=== PATIENT | male | born 1960 | race Caucasian/White ===

== ENCOUNTER 2017-06-24 16:01 | Inpatient (IN) | payer MEDICAID ==
[~2017-06-24] VITALS: Ht 167.6 cm; Wt 62.6 kg
[~2017-06-24 16:01] MED LIST: ASPIR 8181 MG ORAL; COLACE100 MG ORAL; DEPAKOTE ER500 MG ORAL; FLUPHENAZI25 MG/1 ML IM; KLONOPIN1 MG ORAL; LORAZEPAM1 MG ORAL; MOM30 ML ORAL; NEXIUM20 M1 ORAL; NEXIUM20 MG ORAL; NORVASC5 MG ORAL; OMEPRAZOLE20 M2 ORAL; THERAPEUTIC M1 EAC2 PO; THORAZINE25 MG PO
[2017-06-24] MEDS ORDERED: LEVAQUIN750 MG ORAL (16:59)
[2017-06-24] MEDS ORDERED: ACETAMINOPHEN325 M1 ORAL (16:59)
[2017-06-24] MEDS ORDERED: BACTRIM DS TAB1 EAC1 ORAL (16:59)
[2017-06-24] MEDS ORDERED: SEROQUEL200 MG ORAL (16:59)
[2017-06-24] MEDS ORDERED: NORCO 5-325 TA1 EAC1 ORAL (16:59)
[2017-06-24] MEDS ORDERED: PANTOPRAZOLE SO40 MG ORAL (16:59)
[2017-06-24] MEDS ORDERED: TEMAZEPAM15 MG ORAL (16:59)
[2017-06-24 17:54] LABS: BASOPHILS % (AUTO) 0.8 % (0.0-2.0); HEMATOCRIT 37.3 % (42.0-52.0); HEMOGLOBIN 12.5 G/DL (14.2-18.0); LYMPHOCYTES % (AUTO) 29.6 % (20.0-45.0); MEAN CORPUSCULAR VOLUME 89 FL (80-99); MONOCYTES % (AUTO) 8.6 % (1.0-10.0); NEUTROPHILS % (AUTO) 60.9 % (45.0-75.0); PLATELET COUNT 360 K/UL (150-450); RED BLOOD COUNT 4.19 M/UL (4.70-6.10); RED CELL DISTRIBUTION WIDTH 13.3 % (11.6-14.8); WHITE BLOOD COUNT 14.8 K/UL (4.8-10.8)
[2017-06-24 17:57] LABS: APPEARANCE,URINE CLEAR; BILIRUBIN, URINE NEGATIVE (NEGATIVE); GLUCOSE, URINE (UA) NEGATIVE (NEGATIVE); KETONES,URINE 1+ (NEGATIVE); LEUKOCYTE ESTERASE ,URINE 1+ (NEGATIVE); NITRITE,URINE NEGATIVE (NEGATIVE); PH,URINE 5 (4.5-8.0); PROTEIN,URINE NEGATIVE (NEGATIVE); UROBILINOGEN,URINE NORMAL MG/DL (0.0-1.0)
[2017-06-24 18:04] LABS: COLOR,URINE YELLOW; INR 1.2 (0.9-1.1)
[2017-06-24 18:08] LABS: ANION GAP 12 mmol/L (5-15); BLOOD UREA NITROGEN 53 mg/dL (7-18); CALCIUM 9.4 MG/DL (8.5-10.1); CARBON DIOXIDE 23 MMOL/L (21-32); CHLORIDE 109 MMOL/L (98-107); CREATININE 1.7 MG/DL (0.55-1.30); POTASSIUM 3.8 MMOL/L (3.5-5.1); SODIUM 144 MMOL/L (136-145)
[2017-06-24 18:21] LABS: ALANINE AMINOTRANSFERASE 20 U/L (12-78); ALBUMIN/GLOBULIN RATIO 1.1 (1.0-2.7); ALKALINE PHOSPHATASE 82 U/L (46-116); ASPARTATE AMINO TRANSFERASE 34 U/L (15-37); BILIRUBIN,TOTAL 0.5 MG/DL (0.2-1.0); CKMB 3.3 NG/ML (0.0-3.6); CREATINE KINASE 681 U/L (26-308)
[2017-06-24] MEDS ORDERED: LORazepam Inj 2mg/ml 1ml IV ONE (18:30)
[2017-06-24] MEDS ORDERED: ASPIRIN81 MG ORAL (18:52)
[2017-06-24] MEDS ORDERED: PROBIOTIC1 EAC5 PO (18:52)
[2017-06-24] MEDS ORDERED: LEXAPRO10 MG ORAL (18:58)
[2017-06-24] MEDS ORDERED: VITAMIN C500 M1 ORAL (18:58)
[2017-06-24 19:12] VITALS: BP 106/56
--- NOTE | 2017-06-24 19:14 | Emergency Room Report ---
History of Present Illness General Chief Complaint: General Complaint Source: Patient, Medical Record Present Illness HPI The patient is a 56-year-old male brought in by EMS after increased generalized weakness and decreased oral intake. Patient was noted to be nonverbal. He is brought in by EMS. . Report per history of facial cancer. Patient had decreased oral intake. He had not been vomiting. Allergies: Coded Allergies: BENZTROPINE (Unverified Allergy, Unknown, 02/22/14) HALOPERIDOL (Unverified Allergy, Unknown, 02/22/14) PENICILLINS (Unverified Allergy, Unknown, 02/22/14) Patient History Past Medical History: see triage record Reviewed Nursing Documentation: PMH: Agreed, PSxH: Agreed Nursing Documentation-PMH Hx Cardiac Problems: Yes Hx Hypertension: Yes Hx Pacemaker: No Hx Asthma: No Hx COPD: Yes Hx Diabetes: No Hx Gastrointestinal Problems: Yes Hx Dialysis: No Hx Neurological Problems: No Hx Cerebrovascular Accident: No Hx Seizures: No Hx Memory Loss: Yes - confusion Review of Systems All Other Systems: limited - by mental status Physical Exam Vital Signs Date Time Temp Pulse Resp B/P (MAP) Pulse Ox O2 Delivery O2 Flow Rate FiO2 06/24/17 15:58 97.5 102 22 138/79 98 Room Air 97.5 Sp02 EP Interpretation: reviewed, normal General Appearance: normal inspection, well appearing, no apparent distress, alert, Chronically Ill Head: atraumatic ENT: normal ENT inspection, hearing grossly normal, normal voice Neck: normal inspection, full range of motion, supple, no bony tend Respiratory: normal inspection, lungs clear, normal breath sounds, no respiratory distress, no retraction, no wheezing Cardiovascular #1: regular rate, rhythm, no edema Gastrointestinal: normal inspection, normal bowel sounds, non tender, soft, no guarding, no hernia Genitourinary: no CVA tenderness Musculoskeletal: normal inspection, back normal, normal range of motion Neurologic: alert, responsive, speech normal Psychiatric: other - agitated non verbal Skin: normal color, no rash, other - right eye lesion ill defined Medical Decision Making Diagnostic Impression: Primary Impression: Failure to thrive in adult Additional Impression: Urinary tract infection ER Course Patient presented for generalized weakness. Differential diagnosis included was not limited to anemia, urinary tract infection, electrolyte abnormality, hypothyroidism, myocardial infarction, myasthenia gravis, dehydration, among others. Because of complexity of patient's case laboratory testing and imaging studies were ordered.Laboratory studies are notable for elevated BUN/creatinine consistent with dehydration. Patient started on IV fluids. He was given IV antibiotics. Dr. Stef Gill was contacted for inpatient management. Labs Test 06/24/17 17:37 White Blood Count 14.8 K/UL (4.8-10.8) Red Blood Count 4.19 M/UL (4.70-6.10) Hemoglobin 12.5 G/DL (14.2-18.0) Hematocrit 37.3 % (42.0-52.0) Mean Corpuscular Volume 89 FL (80-99) Mean Corpuscular Hemoglobin 29.8 PG (27.0-31.0) Mean Corpuscular Hemoglobin Concent 33.6 G/DL (32.0-36.0) Red Cell Distribution Width 13.3 % (11.6-14.8) Platelet Count 360 K/UL (150-450) Mean Platelet Volume 6.3 FL (6.5-10.1) Neutrophils (%) (Auto) 60.9 % (45.0-75.0) Lymphocytes (%) (Auto) 29.6 % (20.0-45.0) Monocytes (%) (Auto) 8.6 % (1.0-10.0) Eosinophils (%) (Auto) 0.0 % (0.0-3.0) Basophils (%) (Auto) 0.8 % (0.0-2.0) Prothrombin Time 12.2 SEC (9.30-11.50) Prothromb Time International Ratio 1.2 (0.9-1.1) Activated Partial Thromboplast Time 40 SEC (23-33) Urine Color Yellow Urine Appearance Clear Urine pH 5 (4.5-8.0) Urine Specific [place] 1.025 (1.005-1.035) Urine Protein Negative (NEGATIVE) Urine Glucose (UA) Negative (NEGATIVE) Urine Ketones 1+ (NEGATIVE) Urine Occult Blood 1+ (NEGATIVE) Urine Nitrite Negative (NEGATIVE) Urine Bilirubin Negative (NEGATIVE) Urine Urobilinogen Normal MG/DL (0.0-1.0) Urine Leukocyte Esterase 1+ (NEGATIVE) Urine RBC 5-10 /HPF (0 - 0) Urine WBC 2-4 /HPF (0 - 0) Urine Squamous Epithelial Cells None /LPF (NONE/OCC) Urine Amorphous Sediment Few /LPF (NONE) Urine Bacteria Moderate /HPF (NONE) Urine Fine Granular Casts 2-4 /LPF (NONE) Sodium Level 144 MMOL/L (136-145) Potassium Level 3.8 MMOL/L (3.5-5.1) Chloride Level 109 MMOL/L (98-107) Carbon Dioxide Level 23 MMOL/L (21-32) Anion Gap 12 mmol/L (5-15) Blood Urea Nitrogen 53 mg/dL (7-18) Creatinine 1.7 MG/DL (0.55-1.30) Estimat Glomerular Filtration Rate 41.9 mL/min (>60) Glucose Level 117 MG/DL (74-106) Lactic Acid Level 1.80 mmol/L (0.66-2.22) Calcium Level 9.4 MG/DL (8.5-10.1) Total Bilirubin 0.5 MG/DL (0.2-1.0) Aspartate Amino Transf (AST/SGOT) 34 U/L (15-37) Alanine Aminotransferase (ALT/SGPT) 20 U/L (12-78) Alkaline Phosphatase 82 U/L (46-116) Total Creatine Kinase 681 U/L (26-308) Creatine Kinase MB 3.3 NG/ML (0.0-3.6) Creatine Kinase MB Relative Index 0.4 Troponin I 0.008 ng/mL (0.000-0.056) Total Protein 7.6 G/DL (6.4-8.2) Albumin 4.0 G/DL (3.4-5.0) Globulin 3.6 g/dL Albumin/Globulin Ratio 1.1 (1.0-2.7) Last Vital Signs Date Time Temp Pulse Resp B/P (MAP) Pulse Ox O2 Delivery O2 Flow Rate FiO2 06/24/17 15:58 97.5 102 22 138/79 98 Room Air 97.5 Status: unchanged Disposition: ADMITTED INPATIENT Condition: Serious Referrals: STEF GILL (PCP) Keith Greene Jun 24, 2017 19:14
[2017-06-24 20:15] VITALS: BP 108/62
[2017-06-24 21:15] VITALS: BP 97/62
[2017-06-25 08:00] VITALS: BP 168/96
[2017-06-25] MEDS: Enoxaparin 40mg Inj SUBQ SCH (09:00)
[2017-06-25] MEDS ORDERED: DiphenhydrAMINE 50mg/ml Inj IM ONE (09:45)
[2017-06-25] MEDS ORDERED: LORazepam Inj 2mg/ml 1ml IM ONE (09:45)
--- NOTE | 2017-06-25 10:07 | Diagnostic Imaging Report ---
Indication: Shortness of breath Technique: XRAY Chest 1v Comparison: 02/22/2014 Findings: Cardiomediastinal silhouette is within normal limits. There is no consolidation or pleural effusion. Osseous structures are grossly stable. Impression: No acute cardiopulmonary disease.
[2017-06-25 12:00] VITALS: BP 138/81
[2017-06-25 13:37] LABS: BASOPHILS % (AUTO) 0.8 % (0.0-2.0); HEMATOCRIT 34.6 % (42.0-52.0); HEMOGLOBIN 11.6 G/DL (14.2-18.0); LYMPHOCYTES % (AUTO) 36.3 % (20.0-45.0); MEAN CORPUSCULAR VOLUME 89 FL (80-99); NEUTROPHILS % (AUTO) 57.9 % (45.0-75.0); PLATELET COUNT 318 K/UL (150-450); RED BLOOD COUNT 3.88 M/UL (4.70-6.10); RED CELL DISTRIBUTION WIDTH 13.3 % (11.6-14.8)
[2017-06-25 13:57] LABS: ANION GAP 10 mmol/L (5-15); BLOOD UREA NITROGEN 40 mg/dL (7-18); CARBON DIOXIDE 24 MMOL/L (21-32); CHLORIDE 113 MMOL/L (98-107); CREATININE 1.2 MG/DL (0.55-1.30); POTASSIUM 3.7 MMOL/L (3.5-5.1); SODIUM 147 MMOL/L (136-145)
[2017-06-25 16:00] VITALS: BP 123/59
[2017-06-25 20:00] VITALS: BP 93/60
--- NOTE | 2017-06-25 20:49 | History & Physical ---
History and Physical History & Physicial [id number] Job ID Jr Daly Javi Jun 25, 2017 20:49
[2017-06-25] MEDS ORDERED: Bactrim-DS 1 tab ORAL SCH (21:00)
--- NOTE | 2017-06-25 21:49 | Consultation ---
Consult Note Consult Note [id number] TONIA SHAW M.D. Jun 25, 2017 21:49
[2017-06-25] MEDS: Ascorbic Acid 500mg tab ORAL SCH (23:09)
[2017-06-25] MEDS: QUEtiapine 200mg tab ORAL SCH (23:09)
[2017-06-25] MEDS: Aspirin EC 81mg tab ORAL SCH (23:09)
[2017-06-25] MEDS: Lactobacillus-GG tablet ORAL SCH (23:10)
[2017-06-26] VITALS: BP 116/71
[2017-06-26] MEDS ORDERED: Vancomycin 1250mg/D5W 250ml IVPB ONE (00:30)
--- NOTE | 2017-06-26 01:15 | Consultation ---
DATE OF CONSULTATION: 06/25/2017 INFECTIOUS DISEASE CONSULTATION CONSULTING PHYSICIAN: Juan Manuel Gallardo M.D. REFERRING PHYSICIAN: Julio Higgins D.O. REASON FOR CONSULTATION: Evaluation of the patient for sepsis, worsening mental status, antibiotic management. HISTORY OF PRESENT ILLNESS: The patient is a 56-year-old male with multiple medical problems, who was admitted to this medical center due to worsening of mental status. The patient has purulent discharge from the wound over the right side of the face and from the right eye. The patient was found to have leukocytosis and Infectious Disease consultation was requested for further evaluation of the patient's antibiotic management. PAST MEDICAL HISTORY: 1. History of basal cell carcinoma, status post resection. 2. Status post resection of right eye (enucleation). 3. History of hypertension. 4. COPD. 5. Schizophrenia. ALLERGIES: Penicillin. MEDICATIONS: Bactrim and Levaquin. FAMILY HISTORY: Unavailable. REVIEW OF SYSTEMS: Unobtainable. PHYSICAL EXAMINATION: VITAL SIGNS: Temperature 97, blood pressure 92/60, pulse 86, respiratory rate 18. HEENT: The patient has purulent discharge from the extensive right facial wound and right eye. NECK: No lymphadenopathy. CHEST: Clear. HEART: S1, S2. ABDOMEN: Soft. EXTREMITIES: No cyanosis at this time. NEUROLOGIC: Confused. LABORATORY DATA: White blood cells at the time of admission 14.8 and today 14, hemoglobin 11, platelets 318,000. UA unremarkable. BUN 40, creatinine 1.2. ALT, AST, alkaline phosphatase unremarkable. Chest x-ray, N[facility]. ASSESSMENT: 1. The patient is a 56-year-old male with right facial wound infection concerning for possible deep-seated infection including FAMILY LIFE COUNSELOR or other deeper facial structures. 2. Leukocytosis. 3. Afebrile. PLAN: 1. We will start the patient on IV vancomycin, Rocephin, and Flagyl. Hold Levaquin and Bactrim at this time. 2. Monitor CBC. 3. Monitor BMP. 4. Wound culture. 5. Blood culture. 6. CT of head/orbits with IV contrast to rule out abscess. 7. Monitor the patient's glucose, labs, and cultures and based on those, we will do further recommendation. Thank you, Dr. Julio Higgins, for allowing me to participate in the care of this patient. I will follow the patient with you during this hospitalization. Juan Manuel Gallardo M.D. DR: Carlyn JOB#: [id number] CC:
[2017-06-26 09:00] VITALS: BP 133/53
[2017-06-26] MEDS: Enoxaparin 40mg Inj SUBQ SCH (09:00)
[2017-06-26] MEDS: Lactobacillus-GG tablet ORAL SCH (10:46)
[2017-06-26] MEDS: Ascorbic Acid 500mg tab ORAL SCH (10:46)
[2017-06-26] MEDS: Aspirin EC 81mg tab ORAL SCH (10:46)
[2017-06-26] MEDS: QUEtiapine 200mg tab ORAL SCH ×2 (10:46→21:09)
[2017-06-26] MEDS: cefTRIAXone 2 GM in NS 55 ML IVPB SCH ×2 (10:49→21:09)
[2017-06-26 12:00] VITALS: BP 137/60
[2017-06-26] MEDS: Vancomycin 1gm in D5W 275ml IVPB SCH (12:32)
[2017-06-26 16:00] VITALS: BP 146/66
--- NOTE | 2017-06-26 16:30 | Cardiology Report ---
APPROVED REPORT EKG Measurement Heart [id number] Sin[address] ST abnormality, possible anterior subendocardial injury Abnormal ECG
[2017-06-26 20:00] VITALS: BP 112/56
--- NOTE | 2017-06-26 23:16 | Wound Nurse Progress Note ---
Wound RN Progress Note Wound Consult Pt with a diagnosis of Basal cell carcinoma on left face and eye area. Please follow MD's order. No recommendation at this time. CHRISTIE HERNANDEZ RN Jun 26, 2017 23:15
[2017-06-27] VITALS: BP 124/67
[2017-06-27] MEDS: Vancomycin 1gm in D5W 275ml IVPB SCH (00:45)
[2017-06-27 04:00] VITALS: BP 121/68
[2017-06-27 08:00] VITALS: BP 126/71
[2017-06-27] MEDS: Enoxaparin 40mg Inj SUBQ SCH (09:00)
[2017-06-27] MEDS: Aspirin EC 81mg tab ORAL SCH (10:12)
[2017-06-27] MEDS: QUEtiapine 200mg tab ORAL SCH ×2 (10:12→20:44)
[2017-06-27] MEDS: Ascorbic Acid 500mg tab ORAL SCH (10:12)
[2017-06-27] MEDS: Lactobacillus-GG tablet ORAL SCH (10:13)
[2017-06-27] MEDS: cefTRIAXone 2 GM in NS 55 ML IVPB SCH ×2 (10:48→20:43)
[2017-06-27 12:00] VITALS: BP 157/85
[2017-06-27] MEDS ORDERED: LORazepam Inj 2mg/ml 1ml IM ONE (12:45)
[2017-06-27] MEDS ORDERED: DiphenhydrAMINE 50mg/ml Inj IM ONE (12:45)
--- NOTE | 2017-06-27 13:36 | General Progress Note ---
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 SNOMED: 56940267 (5) Failure to thrive in adult ICD Codes: R62.7 - Adult failure to thrive SNOMED: 900307082 (6) Cancer ICD Codes: C80.1 - Malignant (primary) neoplasm, unspecified SNOMED: 977617351 Status: unchanged Assessment/Plan ot pt diet abx cbc bmp am gi psyc possible hospice eval Subjective Constitutional: Reports: weakness Allergies: Coded Allergies: BENZTROPINE (Unverified Allergy, Unknown, 02/22/14) HALOPERIDOL (Unverified Allergy, Unknown, 02/22/14) PENICILLINS (Unverified Allergy, Unknown, 02/22/14) All Systems: reviewed and negative except above Subjective lethargic in bed Objective Last 24 Hour Vital Signs Date Time Temp Pulse Resp B/P (MAP) Pulse Ox O2 Delivery O2 Flow Rate FiO2 06/27/17 08:00 97.2 89 20 126/71 98 97.2 06/27/17 04:00 97.2 82 20 121/68 99 97.2 06/27/17 00:00 98.1 59 21 124/67 100 98.1 06/26/17 21:09 60 112/56 06/26/17 20:00 97.3 60 21 112/56 100 97.3 06/26/17 16:00 97.3 63 20 146/66 100 97.3 Intake and Output 06/26/17 06/27/17 19:00 07:00 Intake Total 1430.000 ml 530.000 ml Balance 1430.000 ml 530.000 ml Intake Oral 1000 ml IV Total 430.000 ml 530.000 ml # Bowel Movements 1 Laboratory Tests 06/27/17 13:10: Vancomycin Level Trough [Pending] Height (Feet): 5 Height (Inches): 6.00 Weight (Pounds): 138 General Appearance: lethargic EENT: normal ENT inspection Neck: normal alignment Cardiovascular: normal peripheral pulses, normal rate, regular rhythm Respiratory/Chest: chest wall non-tender, lungs clear, normal breath sounds Abdomen: normal bowel sounds, non tender, soft Extremities: normal inspection Edema: no edema noted Arm (L), no edema noted Arm (R), no edema noted Leg (L), no edema noted Leg (R), no edema noted Pedal (L), no edema noted Pedal (R), no edema noted Generalized Neurologic: responsive, motor weakness Skin: normal pigmentation, warm/dry STEF GILL Jun 27, 2017 13:36
--- NOTE | 2017-06-27 14:59 | Consultation ---
History of Present Illness General Date patient seen: Jun 27, 2017 Chief Complaint: General Complaint Reason for Consultation: palliative and hospice appropiateness Present Illness HPI 56-year-old male with hx of inoperable facial cancer, brought in by EMS after increased generalized weakness and decreased oral intake. Patient had decreased oral intake. Pt was agitated earlier today and received a cocktail for agitation. He is comfortable and sleeping now Allergies: Coded Allergies: BENZTROPINE (Unverified Allergy, Unknown, 02/22/14) HALOPERIDOL (Unverified Allergy, Unknown, 02/22/14) PENICILLINS (Unverified Allergy, Unknown, 02/22/14) Medication History Scheduled Amlodipine Besylate (Norvasc), 5 MG ORAL DAILY, (Reported) Ascorbic Acid* (Vitamin C*), 500 MG ORAL DAILY, (Reported) Aspirin* (Aspirin*), 81 MG ORAL DAILY, (Reported) Clonazepam* (Klonopin*), 1 MG ORAL BID, (Reported) Escitalopram Oxalate* (Lexapro*), 10 MG ORAL DAILY, (Reported) Levofloxacin* (Levaquin*), 750 MG ORAL DAILY, (Reported) Multivit With Calcium,Iron,Min (Therapeutic M), 1 EACH PO DAILY, (Reported) Pantoprazole* (Pantoprazole*), 40 MG ORAL DAILY, (Reported) Quetiapine Fumarate* (Seroquel*), 200 MG ORAL TWICE A DAY, (Reported) Temazepam (Temazepam*), 15 MG ORAL BEDTIME, (Reported) Trimethoprim/Sulfamethoxazole 160/800* (Bactrim Ds Tablet*), 1 TAB ORAL TWICE A DAY, (Reported) Scheduled PRN Acetaminophen* (Acetaminophen 325MG Tablet*), 650 MG ORAL Q4H PRN for Pain Scale (3-5), (Reported) Miscellaneous Medications Lactobacillus Combo No.11 (Probiotic), 1 EACH PO, (Reported) Discontinued Medications Chlorpromazine (Chlorpromazine HCl), 200 MG PO TID, (Reported) Discontinued Reason: Pt stopped taking med Divalproex Sodium* (Depakote Er*), 1,000 MG ORAL QHS, (Reported) Discontinued Reason: Pt stopped taking med Docusate Sodium* (Colace*), 100 MG ORAL TWICE A DAY, (Reported) Discontinued Reason: Pt stopped taking med Esomeprazole Magnesium (Nexium), 20 MG ORAL DAILY, (Reported) Discontinued Reason: Pt stopped taking med Fluphenazine Decanoate (Fluphenazine Decanoate), 25 MG IM Q3pfqlv, (Reported) Discontinued Reason: Pt stopped taking med Hydrocodone Bit/Acetaminophen 5-325* ([place] 5-325 Tablet*), 1 TAB ORAL Q6HR PRN for Severe Pain (Pain Scale 7-10), (Reported) Discontinued Reason: Pt stopped taking med Lorazepam* (Lorazepam*), 1 MG ORAL Q6HR PRN for For Anxiety, (Reported) Discontinued Reason: Pt stopped taking med Magnesium Hydroxide (Milk of Magnesia), 30 ML ORAL DAILY, (Reported) Discontinued Reason: Pt stopped taking med Omeprazole (Omeprazole), 20 MG ORAL DAILY, (Reported) Discontinued Reason: Pt stopped taking med Patient History Healthcare decision maker Che Lemons, Resuscitation status Full Code Advanced Directive on File Past Medical/Surgical History Past Medical/Surgical History: (1) Basal cell carcinoma Review of Systems Constitutional: Reports: weakness Physical Exam General Appearance: combative, cachetic Lines, tubes and drains: peripheral HEENT: normocephalic, atraumatic Neck: non-tender, normal alignment Respiratory/Chest: chest wall non-tender, normal breath sounds Breasts: no masses Cardiovascular/Chest: normal peripheral pulses Abdomen: normal bowel sounds, non tender Genitourinary/Rectal: normal genital exam Last 24 Hour Vital Signs Date Time Temp Pulse Resp B/P (MAP) Pulse Ox O2 Delivery O2 Flow Rate FiO2 06/27/17 12:00 97.9 68 22 157/85 99 Room Air 97.9 06/27/17 08:00 97.2 89 20 126/71 98 97.2 06/27/17 04:00 97.2 82 20 121/68 99 97.2 06/27/17 00:00 98.1 59 21 124/67 100 98.1 06/26/17 21:09 60 112/56 06/26/17 20:00 97.3 60 21 112/56 100 97.3 06/26/17 16:00 97.3 63 20 146/66 100 97.3 Intake and Output 06/26/17 06/27/17 19:00 07:00 Intake Total 1430.000 ml 530.000 ml Balance 1430.000 ml 530.000 ml Intake Oral 1000 ml IV Total 430.000 ml 530.000 ml # Bowel Movements 1 Laboratory Tests Test 06/27/17 13:10 Vancomycin Level Trough 13.0 ug/mL (5.0-12.0) H Height (Feet): 5 Height (Inches): 6.00 Weight (Pounds): 138 Medications Current Medications Medications (Trade) Dose Ordered Sig/Jordi Route PRN Reason Start Time Stop Time Status Last Admin Dose Admin Acetaminophen (Tylenol) 325 mg Q4H PRN ORAL Mild Pain/Temp > 100.5 06/25/17 04:30 07/25/17 04:29 Amlodipine Besylate (Norvasc) 5 mg QHS ORAL 06/25/17 21:00 07/25/17 20:59 06/26/17 21:09 Ascorbic Acid (Vitamin C) 500 mg DAILY ORAL 06/25/17 21:00 07/25/17 20:59 06/27/17 10:12 Aspirin (Ecotrin) 81 mg DAILY ORAL 06/25/17 21:00 07/25/17 20:59 06/27/17 10:12 Ceftriaxone Sodium 2 gm/ Sodium Chloride 55 ml @ 110 mls/hr EVERY 12 HOURS IVPB 06/26/17 11:00 07/03/17 10:59 06/27/17 10:48 Clonazepam (KlonoPIN) 1 mg BID ORAL 06/25/17 21:00 07/02/17 20:59 06/27/17 10:13 Enoxaparin Sodium (Lovenox) 40 mg DAILY SUBQ 06/25/17 09:00 07/25/17 08:59 Escitalopram Oxalate (Lexapro) 10 mg DAILY ORAL 06/25/17 21:00 07/25/17 20:59 06/27/17 10:13 Lactobacillus Acidophilus (Culturelle) 1 tab DAILY ORAL 06/25/17 21:00 07/25/17 20:59 06/27/17 10:13 Metronidazole 100 ml @ 100 mls/hr Q6HR IVPB 06/26/17 00:00 07/03/17 00:00 06/27/17 13:27 Multivitamins (Multivitamins) 1 tab DAILY ORAL 06/25/17 21:00 07/25/17 20:59 06/27/17 10:12 Pantoprazole (Protonix) 40 mg DAILY ORAL 06/25/17 21:00 07/25/17 20:59 06/27/17 10:12 Quetiapine Fumarate (SEROquel) 200 mg Q12HR ORAL 06/25/17 21:00 07/25/17 20:59 06/27/17 10:12 Temazepam (Restoril) 15 mg QHS ORAL 06/25/17 21:00 07/02/17 20:59 06/26/17 21:09 Vancomycin HCl (Vanco rx to dose) 1 ea DAILY PRN MISC Per rx protocol 06/25/17 22:00 07/25/17 21:59 Vancomycin HCl/ Dextrose 250 ml @ 166.667 mls/hr Q12HR@0300,1500 IVPB 06/27/17 15:30 07/02/17 15:29 Assessment/Plan Problem List: (1) Cellulitis and abscess of face ICD Codes: L03.211 - Cellulitis of face; L02.01 - Cutaneous abscess of face SNOMED: 147222406 (2) Failure to thrive in adult ICD Codes: R62.7 - Adult failure to thrive SNOMED: 684913962 (3) Basal cell carcinoma ICD Codes: C44.91 - Basal cell carcinoma of skin, unspecified SNOMED: 708953666 Assessment/Plan pt with facial cancer and inability to eat and recent weight loss, will qualify for end of life care and hospice if pts medical device sales representative sign the consent forms. If there are no family members or next of kin, ethics recommendations and two physician signature will suffice. CLIVE SUAREZ Jun 27, 2017 14:59
--- NOTE | 2017-06-27 15:06 | Infectious Diseases Prog Note ---
Assessment/Plan Assessment/Plan ASSESSMENT: 1. The patient is a 56-year-old male with right facial wound infection concerning for possible deep-seated infection including DATA BASE ADMINISTRATOR or other deeper facial structures. -wound cx Staph sp, diphteroids, GNRs -Bcx NTD 2. Leukocytosis. -CXR no acute disease -u/a neg 3. Afebrile. - History of basal cell carcinoma, status post resection. -Status post resection of right eye (enucleation). -History of hypertension. -COPD. -Schizophrenia. PLAN: 1. We will start the patient on IV vancomycin, Rocephin, and Flagyl abx d#3 -06/25 SP Levaquin, bactrim 2. Monitor CBC. 3. Monitor BMP. 4. Wound culture. 5. Blood culture. 6. f/u CT of head/orbits with IV contrast to rule out abscess. 7. Monitor the patient's glucose, labs, and cultures and based on those, we will do further recommendation. Thank you, Dr. Julio Higgins, for allowing me to participate in the care of this patient. I will follow the patient with you during this hospitalization. Subjective Allergies: Coded Allergies: BENZTROPINE (Unverified Allergy, Unknown, 02/22/14) HALOPERIDOL (Unverified Allergy, Unknown, 02/22/14) PENICILLINS (Unverified Allergy, Unknown, 02/22/14) Subjective afebrile no CBC today pending CT Objective Vital Signs Last 24 Hour Vital Signs Date Time Temp Pulse Resp B/P (MAP) Pulse Ox O2 Delivery O2 Flow Rate FiO2 06/27/17 12:00 97.9 68 22 157/85 99 Room Air 97.9 06/27/17 08:00 97.2 89 20 126/71 98 97.2 06/27/17 04:00 97.2 82 20 121/68 99 97.2 06/27/17 00:00 98.1 59 21 124/67 100 98.1 06/26/17 21:09 60 112/56 06/26/17 20:00 97.3 60 21 112/56 100 97.3 06/26/17 16:00 97.3 63 20 146/66 100 97.3 Height (Feet): 5 Height (Inches): 6.00 Weight (Pounds): 138 Objective HEENT: The patient has purulent discharge from the extensive right facial wound and right eye. NECK: No lymphadenopathy. CHEST: Clear. HEART: S1, S2. ABDOMEN: Soft. EXTREMITIES: No cyanosis at this time. NEUROLOGIC: Confused. Microbiology Date/Time Source Procedure Growth Status 06/24/17 17:37 Blood Blood Culture - Preliminary NO GROWTH AFTER 24 HOURS Resulted 06/24/17 17:10 Blood Blood Culture - Preliminary NO GROWTH AFTER 24 HOURS Resulted 06/24/17 20:30 Nasal Nares MRSA Culture - Final Staphylococcus Aureus - Mrsa Complete 06/24/17 17:37 Urine,Clean Catch Urine Culture - Final NO GROWTH AFTER 48 HOURS Complete 06/25/17 23:30 Eye Right Gram Stain - Final Resulted 06/25/17 23:30 Wound Culture - Preliminary Staphylococcus Species Diphtheroids Resulted 06/25/17 05:00 Face Gram Stain - Final Resulted 06/25/17 05:00 Wound Culture - Preliminary Gram Negative [place] Diphtheroids Resulted 06/24/17 20:30 Rectum VRE Culture - Final Enterococcus Faecium - Vre Complete Laboratory Tests Test 06/27/17 13:10 Vancomycin Level Trough 13.0 ug/mL (5.0-12.0) H Current Medications Medications (Trade) Dose Ordered Sig/Jordi Route PRN Reason Start Time Stop Time Status Last Admin Dose Admin Acetaminophen (Tylenol) 325 mg Q4H PRN ORAL Mild Pain/Temp > 100.5 06/25/17 04:30 07/25/17 04:29 Amlodipine Besylate (Norvasc) 5 mg QHS ORAL 06/25/17 21:00 07/25/17 20:59 06/26/17 21:09 Ascorbic Acid (Vitamin C) 500 mg DAILY ORAL 06/25/17 21:00 07/25/17 20:59 06/27/17 10:12 Aspirin (Ecotrin) 81 mg DAILY ORAL 06/25/17 21:00 07/25/17 20:59 06/27/17 10:12 Ceftriaxone Sodium 2 gm/ Sodium Chloride 55 ml @ 110 mls/hr EVERY 12 HOURS IVPB 06/26/17 11:00 07/03/17 10:59 06/27/17 10:48 Clonazepam (KlonoPIN) 1 mg BID ORAL 06/25/17 21:00 07/02/17 20:59 06/27/17 10:13 Enoxaparin Sodium (Lovenox) 40 mg DAILY SUBQ 06/25/17 09:00 07/25/17 08:59 Escitalopram Oxalate (Lexapro) 10 mg DAILY ORAL 06/25/17 21:00 07/25/17 20:59 06/27/17 10:13 Lactobacillus Acidophilus (Culturelle) 1 tab DAILY ORAL 06/25/17 21:00 07/25/17 20:59 06/27/17 10:13 Metronidazole 100 ml @ 100 mls/hr Q6HR IVPB 06/26/17 00:00 07/03/17 00:00 06/27/17 13:27 Multivitamins (Multivitamins) 1 tab DAILY ORAL 06/25/17 21:00 07/25/17 20:59 06/27/17 10:12 Pantoprazole (Protonix) 40 mg DAILY ORAL 06/25/17 21:00 07/25/17 20:59 06/27/17 10:12 Quetiapine Fumarate (SEROquel) 200 mg Q12HR ORAL 06/25/17 21:00 07/25/17 20:59 06/27/17 10:12 Temazepam (Restoril) 15 mg QHS ORAL 06/25/17 21:00 07/02/17 20:59 06/26/17 21:09 Vancomycin HCl (Vanco rx to dose) 1 ea DAILY PRN MISC Per rx protocol 06/25/17 22:00 07/25/17 21:59 Vancomycin HCl/ Dextrose 250 ml @ 166.667 mls/hr Q12HR@0300,1500 IVPB 06/27/17 15:30 07/02/17 15:29 Carmella Spring M.D. Jun 27, 2017 15:05
--- NOTE | 2017-06-27 15:56 | GI Initial Consult Note ---
History of Present Illness General Date patient seen: Jun 27, 2017 Time patient seen: 15:48 Reason for Hospitalization: General Complaint Referring physician: CLIVE BURROUGHS Reason for Consultation: palliative and hospice appropiateness Present Illness HPI HISTORY OF PRESENT ILLNESS: The patient is a 56-year-old male with multiple medical problems, who was admitted to this medical center due to worsening of mental status. The patient has purulent discharge from the wound over the right side of the face and from the right eye. It was reported the patient had generalized weakness and decreased oral intake. GI consulted for poor PO intake, severe malnutrition and dehydration. Home Meds Reported Medications Ascorbic Acid* (VITAMIN C*) 500 Mg Tablet, 500 MG ORAL DAILY, #30 TAB 0 Refills 06/24/17 Escitalopram Oxalate* (LEXAPRO*) 10 Mg Tablet, 10 MG ORAL DAILY, TAB 06/24/17 Lactobacillus Combo No.11 (PROBIOTIC) 1 Each Cap.sprink, 1 EACH PO, CAP 06/24/17 Aspirin* (ASPIRIN*) 81 Mg Tab.chew, 81 MG ORAL DAILY, TAB 06/24/17 Pantoprazole* (PANTOPRAZOLE*) 40 Mg Tablet.dr, 40 MG ORAL DAILY, TAB 06/24/17 Acetaminophen* (ACETAMINOPHEN 325MG TABLET*) 325 Mg Tablet, 650 MG ORAL Q4H Y for Pain Scale (3-5), TAB 06/24/17 Quetiapine Fumarate* (SEROQUEL*) 200 Mg Tablet, 200 MG ORAL TWICE A DAY, TAB 06/24/17 Trimethoprim/Sulfamethoxazole 160/800* (BACTRIM DS TABLET*) 1 Each Tablet, 1 TAB ORAL TWICE A DAY, TAB 06/24/17 Levofloxacin* (LEVAQUIN*) 750 Mg Tablet, 750 MG ORAL DAILY, TAB 06/24/17 Temazepam (TEMAZEPAM*) 15 Mg Capsule, 15 MG ORAL BEDTIME, #30 CAP 0 Refills 06/24/17 Amlodipine Besylate (Norvasc) 5 Mg Tab, 5 MG ORAL DAILY, TAB 08/11/15 Multivit With Calcium,Iron,Min (THERAPEUTIC M) 1 Each Tablet, 1 EACH PO DAILY, TAB 02/22/14 Clonazepam* (KLONOPIN*) 1 Mg Tablet, 1 MG ORAL BID, #15 TAB 0 Refills 02/22/14 Discontinued Reported Medications Hydrocodone Bit/Acetaminophen 5-325* (NORCO 5-325 TABLET*) 1 Each Tablet, 1 TAB ORAL Q6HR Y for Severe Pain (Pain Scale 7-10), TAB 06/24/17 Lorazepam* (LORAZEPAM*) 1 Mg Tablet, 1 MG ORAL Q6HR Y for For Anxiety, TAB 08/11/15 Omeprazole (OMEPRAZOLE) 20 Mg Capsule.dr, 20 MG ORAL DAILY, CAP 08/11/15 Esomeprazole Magnesium (NEXIUM) 20 Mg Capsule.dr, 20 MG ORAL DAILY, CAP 08/11/15 Chlorpromazine (Chlorpromazine HCl) 25 Mg Tab, 200 MG PO TID, TAB 02/22/14 Magnesium Hydroxide (Milk of Magnesia) 30 Ml Susp, 30 ML ORAL DAILY 02/22/14 Docusate Sodium* (COLACE*) 100 Mg Capsule, 100 MG ORAL TWICE A DAY, CAP 02/22/14 Fluphenazine Decanoate (FLUPHENAZINE DECANOATE) 25 Mg/1 Ml Vial, 25 MG IM L6msyet, VIAL 02/22/14 Divalproex Sodium* (DEPAKOTE ER*) 500 Mg Tab.er.24h, 1000 MG ORAL QHS, TAB 02/22/14 Med list reviewed/reconciled: Yes Allergies: Coded Allergies: BENZTROPINE (Unverified Allergy, Unknown, 02/22/14) HALOPERIDOL (Unverified Allergy, Unknown, 02/22/14) PENICILLINS (Unverified Allergy, Unknown, 02/22/14) Patient History Limited by: medical condition History Provided By: Medical Record PMH Narrative Past Medical History: see triage record Reviewed Nursing Documentation: PMH: Agreed, PSxH: Agreed Nursing Documentation-PMH Hx Cardiac Problems: Yes Hx Hypertension: Yes Hx Pacemaker: No Hx Asthma: No Hx COPD: Yes Hx Diabetes: No Hx Gastrointestinal Problems: Yes Hx Dialysis: No Hx Neurological Problems: No Hx Cerebrovascular Accident: No Hx Seizures: No Hx Memory Loss: Yes - confusion PAST MEDICAL HISTORY: 1. History of basal cell carcinoma, status post resection. 2. Status post resection of right eye (enucleation). 3. History of hypertension. 4. COPD. 5. Schizophrenia. Review of Systems All Other Systems: limited Physical Exam Vital Signs Date Time Temp Pulse Resp B/P (MAP) Pulse Ox O2 Delivery O2 Flow Rate FiO2 06/24/17 15:58 97.5 102 22 138/79 98 Room Air 97.5 Sp02 EP Interpretation: reviewed Labs Laboratory Tests Test 06/27/17 13:10 Vancomycin Level Trough 13.0 ug/mL (5.0-12.0) H General Appearance: alert, other - agitation Head: normocephalic EENT: other Neck: supple Gastrointestinal: soft Rectal: deferred Musculoskeletal: normal inspection Neurologic: alert Skin: normal inspection, normal color, no rash, warm/dry Lymphatic: normal inspection, no adenopathy Current Medications Current Medications Medications (Trade) Dose Ordered Sig/Jordi Route PRN Reason Start Time Stop Time Status Last Admin Dose Admin Acetaminophen (Tylenol) 325 mg Q4H PRN ORAL Mild Pain/Temp > 100.5 06/25/17 04:30 07/25/17 04:29 Amlodipine Besylate (Norvasc) 5 mg QHS ORAL 06/25/17 21:00 07/25/17 20:59 06/26/17 21:09 Ascorbic Acid (Vitamin C) 500 mg DAILY ORAL 06/25/17 21:00 07/25/17 20:59 06/27/17 10:12 Aspirin (Ecotrin) 81 mg DAILY ORAL 06/25/17 21:00 07/25/17 20:59 06/27/17 10:12 Ceftriaxone Sodium 2 gm/ Sodium Chloride 55 ml @ 110 mls/hr EVERY 12 HOURS IVPB 06/26/17 11:00 07/03/17 10:59 06/27/17 10:48 Clonazepam (KlonoPIN) 1 mg BID ORAL 06/25/17 21:00 07/02/17 20:59 06/27/17 10:13 Enoxaparin Sodium (Lovenox) 40 mg DAILY SUBQ 06/25/17 09:00 07/25/17 08:59 Escitalopram Oxalate (Lexapro) 10 mg DAILY ORAL 06/25/17 21:00 07/25/17 20:59 06/27/17 10:13 Lactobacillus Acidophilus (Culturelle) 1 tab DAILY ORAL 06/25/17 21:00 07/25/17 20:59 06/27/17 10:13 Metronidazole 100 ml @ 100 mls/hr Q6HR IVPB 06/26/17 00:00 07/03/17 00:00 06/27/17 13:27 Multivitamins (Multivitamins) 1 tab DAILY ORAL 06/25/17 21:00 07/25/17 20:59 06/27/17 10:12 Pantoprazole (Protonix) 40 mg DAILY ORAL 06/25/17 21:00 07/25/17 20:59 06/27/17 10:12 Quetiapine Fumarate (SEROquel) 200 mg Q12HR ORAL 06/25/17 21:00 07/25/17 20:59 06/27/17 10:12 Temazepam (Restoril) 15 mg QHS ORAL 06/25/17 21:00 07/02/17 20:59 06/26/17 21:09 Vancomycin HCl (Vanco rx to dose) 1 ea DAILY PRN MISC Per rx protocol 06/25/17 22:00 07/25/17 21:59 Vancomycin HCl/ Dextrose 250 ml @ 166.667 mls/hr Q12HR@0300,1500 IVPB 06/27/17 15:30 07/02/17 15:29 GI: Plan Problems: (1) Severe malnutrition (2) Dehydration (3) Poor fluid intake (4) Periorbital swelling (5) Failure to thrive in adult (6) Cellulitis and abscess of face (7) Schizophreniform psychosis (8) Basal cell carcinoma Plan regular diet, but has poor PO intake >> calorie count x 48 hours consider NGT for temporary nutrition if necessary, PEG if DPOA agrees IV/PO hydration + electrolyte replacement ppi fu labs Discussed with Dr. Ferguson. Thank you for this patient referral, we will follow. Brunilda Saavedra N.P. Jun 27, 2017 15:56
[2017-06-27 16:00] VITALS: BP 85/46
--- NOTE | 2017-06-27 16:03 | Diagnostic Imaging Report ---
Indication: Purulent discharge from right sided facial wound in right, history of basal cell carcinoma of the right side of the face. Technique: IV administration nonionic contrast Spiral acquisitions obtained through the orbits Multiplanar reconstructions were generated. Total dose length product 06/19/1981 mGycm. CTDIvol(s) 70, 16, 99, 70 mGy, inclusive of brain CT performed at the same time. Radiation dose was minimized using automated exposure control Comparison: 08/13/2014 Findings: The large necrotic focal masslike opacity previously demonstrated is no longer evident, and there is a large broad-based soft tissue defect in the area previously occupied by this lesion. Some air bubbles are seen deep to the soft tissue defect more laterally. There is, however considerable abnormal soft tissue in the right orbital, periorbital, and malar region on the current exam. This is mostly confluent. This is complex in shape, overall dimensions approximately 3 cm AP, 7.9 cm transverse, and 5.3 cm craniocaudad. The abnormal soft tissue is seen in the preseptal orbit, passing posterior to the lateral orbital rim and into the posterior malar soft tissues. Soft tissue also extends into the deeper soft tissues, and there is a defect in the lateral orbital wall, deep to which there is tumor within the lateral orbit which displaces the lateral rectus muscle medially. Some ill-defined areas of low attenuation within this mass are demonstrated, especially in the lateral retroseptal orbit and in the posterior aspect of the mass. In addition to the destructive abnormality of the lateral orbital wall, there is evidence of invasion and destructive change of the right zygomatic arch. A distinct and separate soft tissue mass is seen in the preauricular region, measures 2 x 2 x 2.5 cm. This is fairly homogeneous on the current exam, previously demonstrated evidence of a necrotic center. This erodes the lateral aspect of the mandibular condyle. Thickening of the subcutaneous fat posterior to the main mass may reflect post radiation changes. Previously demonstrated asymmetric and enhanced left supraorbital tissue is less striking on the current exam although equivocally present Prominent but not frankly enlarged cervical nodes are demonstrated. The salivary glands are unremarkable. The nasopharynx, oropharynx, and hypopharynx are unremarkable. The tongue does not appear to extend all the way to the anterior aspect of the floor the mouth. There is disease within the right maxillary sinus, probably representing polyposis or a mucous retention cyst. A second smaller one is seen more medially. There is minimal ethmoid sinus disease. Impression: Evidence of resection of previously demonstrated large periorbital mass demonstrated on prior study of 08/13/2014. However, there is evidence of extensive recurrent tumor involving the preseptal and postseptal right lateral orbit, the malar soft tissues, and invading and destroying portions of the lateral orbital wall and zygomatic arch, dimensions given above. There is evidence of large central soft tissue ulcer which should be clinically evident. Multiple foci of subtle low-attenuation within various areas of the mass probably represent necrotic tumor but could represent small abscesses. 19 x 18 mm mass in the right preauricular region, presumably representing enlargement of abnormality in the same area demonstrated previously. There is now evidence of erosion of the lateral aspect of the right mandibular condyle Sinus disease as described Equivocally abnormal appearance to the anterior tongue, does not protrude as far anteriorly as expected, may be positional but correlate with surgical history Equivocal evidence of residual left supraorbital disease The CT scanner at [facility] is accredited by the [employer] and the scans are performed using protocols designed to limit radiation exposure to as low as reasonably achievable to attain images of sufficient resolution adequate for diagnostic evaluation.
--- NOTE | 2017-06-27 16:07 | Diagnostic Imaging Report ---
Indication: Worsening mental status Technique: Spiral acquisitions obtained through the brain pre- and post-IV contrast administration. Angled axial and coronal 5 x 5 mm slices reconstructed. Total dose length product 3482.16 mGycm. CTDIvol(s) 70.38,70.38 mGy, inclusive of orbital CT performed of the same time. Dose reduction achieved using automated exposure control Comparison: 03/04/[address] Findings: No acute intracranial hemorrhage or edema, mass effect, nor midline shift. Tiny patent cavum septum lucidum again noted. No abnormal contrast enhancement. Normal morse-white differentiation. Normal-sized ventricles and extra-axial CSF spaces. Extensive right periorbital and malar and preauricular abnormality is described in detail on a separate orbit CT report Impression: Negative for acute intracranial bleed, mass effect, or contrast-enhancing lesion. Please refer to separate orbital CT report for details of right periorbital and malar soft tissue abnormalities. The CT scanner at [facility] is accredited by the [employer] and the scans are performed using protocols designed to limit radiation exposure to as low as reasonably achievable to attain images of sufficient resolution adequate for diagnostic evaluation.
[2017-06-27] MEDS: Vancomycin 1250mg/D5W 250ml IVPB SCH (16:18)
[2017-06-27 20:00] VITALS: BP 106/47
--- NOTE | 2017-06-27 23:28 | Consultation ---
History of Present Illness General Chief Complaint: General Complaint Referring physician: CLIVE BURROUGHS Reason for Consultation: palliative and hospice appropiateness Present Illness HPI 56-year-old male with multiple medical problems, who was admitted to this medical center due to worsening of mental status. the pt is disorganized and agitated. well familiar with this pt Allergies: Coded Allergies: BENZTROPINE (Unverified Allergy, Unknown, 02/22/14) HALOPERIDOL (Unverified Allergy, Unknown, 02/22/14) PENICILLINS (Unverified Allergy, Unknown, 02/22/14) Medication History Scheduled Amlodipine Besylate (Norvasc), 5 MG ORAL DAILY, (Reported) Ascorbic Acid* (Vitamin C*), 500 MG ORAL DAILY, (Reported) Aspirin* (Aspirin*), 81 MG ORAL DAILY, (Reported) Clonazepam* (Klonopin*), 1 MG ORAL BID, (Reported) Escitalopram Oxalate* (Lexapro*), 10 MG ORAL DAILY, (Reported) Levofloxacin* (Levaquin*), 750 MG ORAL DAILY, (Reported) Multivit With Calcium,Iron,Min (Therapeutic M), 1 EACH PO DAILY, (Reported) Pantoprazole* (Pantoprazole*), 40 MG ORAL DAILY, (Reported) Quetiapine Fumarate* (Seroquel*), 200 MG ORAL TWICE A DAY, (Reported) Temazepam (Temazepam*), 15 MG ORAL BEDTIME, (Reported) Trimethoprim/Sulfamethoxazole 160/800* (Bactrim Ds Tablet*), 1 TAB ORAL TWICE A DAY, (Reported) Scheduled PRN Acetaminophen* (Acetaminophen 325MG Tablet*), 650 MG ORAL Q4H PRN for Pain Scale (3-5), (Reported) Miscellaneous Medications Lactobacillus Combo No.11 (Probiotic), 1 EACH PO, (Reported) Discontinued Medications Chlorpromazine (Chlorpromazine HCl), 200 MG PO TID, (Reported) Discontinued Reason: Pt stopped taking med Divalproex Sodium* (Depakote Er*), 1,000 MG ORAL QHS, (Reported) Discontinued Reason: Pt stopped taking med Docusate Sodium* (Colace*), 100 MG ORAL TWICE A DAY, (Reported) Discontinued Reason: Pt stopped taking med Esomeprazole Magnesium (Nexium), 20 MG ORAL DAILY, (Reported) Discontinued Reason: Pt stopped taking med Fluphenazine Decanoate (Fluphenazine Decanoate), 25 MG IM T1mmayy, (Reported) Discontinued Reason: Pt stopped taking med Hydrocodone Bit/Acetaminophen 5-325* ([place] 5-325 Tablet*), 1 TAB ORAL Q6HR PRN for Severe Pain (Pain Scale 7-10), (Reported) Discontinued Reason: Pt stopped taking med Lorazepam* (Lorazepam*), 1 MG ORAL Q6HR PRN for For Anxiety, (Reported) Discontinued Reason: Pt stopped taking med Magnesium Hydroxide (Milk of Magnesia), 30 ML ORAL DAILY, (Reported) Discontinued Reason: Pt stopped taking med Omeprazole (Omeprazole), 20 MG ORAL DAILY, (Reported) Discontinued Reason: Pt stopped taking med Patient History History Provided By: Patient, Medical Record, PMD Healthcare decision maker Che Lemons, Resuscitation status Full Code Advanced Directive on File Review of Systems Psychiatric: Reports: prior hx, anxiety, depressed feelings Physical Exam General Appearance: alert, confused, agitated Last 24 Hour Vital Signs Date Time Temp Pulse Resp B/P (MAP) Pulse Ox O2 Delivery O2 Flow Rate FiO2 06/27/17 20:00 97.3 56 20 106/47 96 97.3 06/27/17 16:00 97.2 58 19 85/46 96 Room Air 97.2 06/27/17 12:00 97.9 68 22 157/85 99 Room Air 97.9 06/27/17 08:00 97.2 89 20 126/71 98 97.2 06/27/17 04:00 97.2 82 20 121/68 99 97.2 06/27/17 00:00 98.1 59 21 124/67 100 98.1 Intake and Output 06/26/17 06/27/17 19:00 07:00 Intake Total 1430.000 ml 530.000 ml Balance 1430.000 ml 530.000 ml Intake Oral 1000 ml IV Total 430.000 ml 530.000 ml # Bowel Movements 1 Laboratory Tests Test 06/27/17 13:10 Vancomycin Level Trough 13.0 ug/mL (5.0-12.0) H Height (Feet): 5 Height (Inches): 6.00 Weight (Pounds): 138 Medications Current Medications Medications (Trade) Dose Ordered Sig/Jordi Route PRN Reason Start Time Stop Time Status Last Admin Dose Admin Acetaminophen (Tylenol) 325 mg Q4H PRN ORAL Mild Pain/Temp > 100.5 06/25/17 04:30 07/25/17 04:29 Amlodipine Besylate (Norvasc) 5 mg QHS ORAL 06/25/17 21:00 07/25/17 20:59 06/26/17 21:09 Ascorbic Acid (Vitamin C) 500 mg DAILY ORAL 06/25/17 21:00 07/25/17 20:59 06/27/17 10:12 Aspirin (Ecotrin) 81 mg DAILY ORAL 06/25/17 21:00 07/25/17 20:59 06/27/17 10:12 Ceftriaxone Sodium 2 gm/ Sodium Chloride 55 ml @ 110 mls/hr EVERY 12 HOURS IVPB 06/26/17 11:00 07/03/17 10:59 06/27/17 20:43 Clonazepam (KlonoPIN) 1 mg BID ORAL 06/25/17 21:00 07/02/17 20:59 06/27/17 18:14 Enoxaparin Sodium (Lovenox) 40 mg DAILY SUBQ 06/25/17 09:00 07/25/17 08:59 Escitalopram Oxalate (Lexapro) 10 mg DAILY ORAL 06/25/17 21:00 07/25/17 20:59 06/27/17 10:13 Lactobacillus Acidophilus (Culturelle) 1 tab DAILY ORAL 06/25/17 21:00 07/25/17 20:59 06/27/17 10:13 Metronidazole 100 ml @ 100 mls/hr Q6HR IVPB 06/26/17 00:00 07/03/17 00:00 06/27/17 18:14 Multivitamins (Multivitamins) 1 tab DAILY ORAL 06/25/17 21:00 07/25/17 20:59 06/27/17 10:12 Pantoprazole (Protonix) 40 mg DAILY ORAL 06/25/17 21:00 07/25/17 20:59 06/27/17 10:12 Quetiapine Fumarate (SEROquel) 200 mg Q12HR ORAL 06/25/17 21:00 07/25/17 20:59 06/27/17 20:44 Temazepam (Restoril) 15 mg QHS ORAL 06/25/17 21:00 07/02/17 20:59 06/27/17 20:43 Vancomycin HCl (Vanco rx to dose) 1 ea DAILY PRN MISC Per rx protocol 06/25/17 22:00 07/25/17 21:59 Vancomycin HCl/ Dextrose 250 ml @ 166.667 mls/hr Q12HR@0300,1500 IVPB 06/27/17 15:30 07/02/17 15:29 06/27/17 16:18 Assessment/Plan Status: stable Assessment/Plan schizophrenia prolexin dec zyprexa thorazine prn Nathaniel Green M.D. Jun 27, 2017 23:28
[2017-06-27] MEDS ORDERED: fluPHENAZine Decanoate 25mg Inj IM ONE (23:30)
[2017-06-27] MEDS ORDERED: chlorproMAZINE 10mg tab ORAL PRN (23:30)
[2017-06-28] VITALS: BP 102/66
[2017-06-28] MEDS ORDERED: fluPHENAZine Decanoate 25mg Inj IM ONE ×2 (00:30→09:00)
[2017-06-28 04:00] VITALS: BP 116/56
[2017-06-28] MEDS: Vancomycin 1250mg/D5W 250ml IVPB SCH ×2 (04:13→15:47)
[2017-06-28 08:00] VITALS: BP 105/71
[2017-06-28 08:42] LABS: HEMATOCRIT 30.7 % (42.0-52.0); HEMOGLOBIN 10.2 G/DL (14.2-18.0); MEAN CORPUSCULAR VOLUME 91 FL (80-99); PLATELET COUNT 253 K/UL (150-450); RED BLOOD COUNT 3.38 M/UL (4.70-6.10); RED CELL DISTRIBUTION WIDTH 13.5 % (11.6-14.8); WHITE BLOOD COUNT 10.1 K/UL (4.8-10.8)
--- NOTE | 2017-06-28 08:45 | History and Physical Report ---
DATE OF ADMISSION: 06/25/2017 NOTE: POOR AUDIO INTERNAL MEDICINE HISTORY AND PHYSICAL REASON FOR ADMISSION: disorder, agitation, and failure to thrive. IDENTIFICATION DATA: The patient is a pleasant 56-year-old male with increased generalized weakness. He has been brought in by EMS, difficult to obtain further history. He has been very agitated, has received Haldol several times. The patient noted upon presentation to have elevated white count as well as UTI, elevated INR as well as other coags were noted to be elevated as well. Chest x-ray showed no acute cardiopulmonary process. Other labs did reveal UTI. Therefore, we consulted ID service and the patient has received antibiotics at this time as well as fluids. PAST MEDICAL HISTORY: Right eye cancer, failure to thrive. PAST SURGICAL HISTORY: None noted. MEDICATIONS: Reviewed from prison facility. ALLERGIES: Benztropine penicillin. FAMILY HISTORY: Difficult to obtain. REVIEW OF SYSTEMS: Difficult to obtain given the patient is extremely agitated. PHYSICAL EXAMINATION: VITAL SIGNS: Reviewed. GENERAL: No distress. PULMONARY: Decreased breath sounds. CARDIOVASCULAR: Regular rate. No S3 or S4. ABDOMEN: Soft, nontender, and nondistended. EXTREMITIES: No cyanosis, swelling, or edema noted. LABORATORY DATA: WBC 14.8, hemoglobin 12.5, hematocrit 37, and platelet count 260,000. IMAGING: Chest x-ray reviewed, no acute cardiopulmonary process. ASSESSMENT AND RECOMMENDATIONS: 1. Failure to thrive secondary to recent cancer, history of facial cancer. I do not have the patient's medical records from prison facility which will need to be reviewed in regard to treatment. 2. Facial cancer, on outpatient management. The patient is able to tolerate treatment. 3. Urinary tract infection. The patient has been given Levaquin, antibiotics and fluids have been administered, currently is improved status post intravenous fluids. 4. Leukocytosis, likely secondary to underlying infection. 5. Anemia due to underlying chronic disease. Continue to closely monitor. 6. Coagulopathy, potentially secondary to liver disease. Closely monitor . 7. Deep venous thrombosis prophylaxis with Lovenox. I appreciate sr. consultant care. Jr Daly M.D. DR: NIMO JOB#: [id number] CC:
[2017-06-28 08:53] LABS: ANION GAP 7 mmol/L (5-15); BLOOD UREA NITROGEN 6 mg/dL (7-18); CALCIUM 8.3 MG/DL (8.5-10.1); CARBON DIOXIDE 28 MMOL/L (21-32); CHLORIDE 109 MMOL/L (98-107); CREATININE 0.7 MG/DL (0.55-1.30); SODIUM 144 MMOL/L (136-145)
[2017-06-28] MEDS: cefTRIAXone 2 GM in NS 55 ML IVPB SCH (09:58)
[2017-06-28] MEDS: Ascorbic Acid 500mg tab ORAL SCH (09:59)
[2017-06-28] MEDS: Enoxaparin 40mg Inj SUBQ SCH (09:59)
[2017-06-28] MEDS: Aspirin EC 81mg tab ORAL SCH (09:59)
[2017-06-28] MEDS: Lactobacillus-GG tablet ORAL SCH (09:59)
[2017-06-28 12:00] VITALS: BP 110/55
--- NOTE | 2017-06-28 12:48 | General Progress Note ---
Assessment/Plan Assessment/Plan 1. Failure to thrive secondary to recent cancer, history of facial cancer. It is likely BCC, will recommend to obtain actual pathology report from [facility] --> have discussed with sister that patient will likly need 30 treatments with radiatin in additin to a BRAF inhibitor which he will have to take religiously, and cannot miss sessions or followup and this is not something that I forsee he is capable of --> [facility] 2. Facial cancer, on outpatient management. --> Has not received any treatment in the past due to poor compliance and has refused several times to meet with oncologist ---> most recently saw Dr. Patino at [facility] and had similar recommendatons would need to display that he can stay in a still position for 1- 2 hours at a time to get steriotactic radiation 3. Urinary tract infection. The patient has been given Levaquin, --> antibiotics and fluids have been administered, currently is improved status post intravenous fluids. 4. Leukocytosis, likely secondary to underlying infection. --> On antibiotics. 5. Anemia due to underlying chronic disease. Continue to closely monitor. --> Transfuse if hgb <7 6. Coagulopathy, potentially secondary to liver disease. Closely monitor 7. Deep venous thrombosis prophylaxis with Lovenox. Subjective Date patient seen: Jun 27, 2017 Constitutional: Denies: no symptoms, chills, diaphoresis, fever, malaise, weakness, other HEENT: Denies: no symptoms, eye pain, blurred vision, tearing, double vision, ear pain, ear discharge, nose pain, nose congestion, throat pain, throat swelling, mouth pain, mouth swelling, other Cardiovascular: Denies: no symptoms, chest pain, edema, irregular heart rate, lightheadedness, palpitations, syncope, other Respiratory: Denies: no symptoms, cough, orthopnea, shortness of breath, SOB with excertion, SOB at rest, sputum, stridor, wheezing, other Gastrointestinal/Abdominal: Denies: no symptoms, abdomen distended, abdominal pain, black stools, tarry stools, blood in stool, constipated, diarrhea, difficulty swallowing, nausea, poor appetite, poor fluid intake, rectal bleeding , vomiting, other Genitourinary: Denies: no symptoms, burning, discharge, frequency, flank pain, hematuria, incontinence, pain, urgency, other Neurologic/Psychiatric: Denies: no symptoms, anxiety, depressed, emotional problems, headache, numbness, paresthesia, pre-existing deficit, seizure, tingling, tremors, weakness, other Hematologic/Lymphatic: Reports: anemia Allergies: Coded Allergies: BENZTROPINE (Unverified Allergy, Unknown, 02/22/14) HALOPERIDOL (Unverified Allergy, Unknown, 02/22/14) PENICILLINS (Unverified Allergy, Unknown, 02/22/14) Subjective On antibiotic treatment. H/H stable. Objective Last 24 Hour Vital Signs Date Time Temp Pulse Resp B/P (MAP) Pulse Ox O2 Delivery O2 Flow Rate FiO2 06/28/17 08:00 97.6 60 18 105/71 95 97.6 06/28/17 04:00 97.5 61 20 116/56 100 97.5 06/28/17 00:00 97.4 65 20 102/66 98 97.4 06/27/17 21:00 56 106/47 06/27/17 20:00 97.3 56 20 106/47 96 97.3 06/27/17 16:00 97.2 58 19 85/46 96 Room Air 97.2 Intake and Output 06/27/17 06/28/17 19:00 07:00 Intake Total 405 ml 720 ml Balance 405 ml 720 ml Intake Oral 720 ml IV Total 405 ml # Voids 3 # Bowel Movements 1 2 Laboratory Tests 06/27/17 13:10: Vancomycin Level Trough 13.0H 06/28/17 06:30: White Blood Count 10.1, Red Blood Count 3.38L, Hemoglobin 10.2L, Hematocrit 30.7L, Mean Corpuscular Volume 91, Mean Corpuscular Hemoglobin 30.1, Mean Corpuscular Hemoglobin Concent 33.1, Red Cell Distribution Width 13.5, Platelet Count 253, Mean Platelet Volume 7.6, Neutrophils (%) (Auto) , Lymphocytes (%) ( Auto) , Monocytes (%) (Auto) , Eosinophils (%) (Auto) , Basophils (%) (Auto) , Differential Total Cells Counted 100, Neutrophils % (Manual) 41L, Lymphocytes % (Manual) 53H, Monocytes % (Manual) 3, Eosinophils % (Manual) 3, Basophils % ( Manual) 0, Band Neutrophils 0, Platelet Estimate Adequate, Platelet Morphology Normal, Red Blood Cell Morphology Normal, Sodium Level 144, Potassium Level 3.0L , Chloride Level 109H, Carbon Dioxide Level 28, Anion Gap 7, Blood Urea Nitrogen 6L, Creatinine 0.7, Estimat Glomerular Filtration Rate > 60, Glucose Level 83, Calcium Level 8.3L Height (Feet): 5 Height (Inches): 6.00 Weight (Pounds): 138 Respiratory/Chest: decreased breath sounds Abdomen: soft Jr Daly Jun 28, 2017 12:48
--- NOTE | 2017-06-28 14:30 | Pulmonology Progress Note ---
Assessment/Plan Problems: (1) Cellulitis and abscess of face (2) Failure to thrive in adult (3) Basal cell carcinoma Assessment/Plan continue abx check cultures wound care ethics evaluation for hospice referral Subjective ROS Limited/Unobtainable: No Constitutional: Reports: no symptoms HEENT: Repors: no symptoms Allergies: Coded Allergies: BENZTROPINE (Unverified Allergy, Unknown, 02/22/14) HALOPERIDOL (Unverified Allergy, Unknown, 02/22/14) PENICILLINS (Unverified Allergy, Unknown, 02/22/14) Objective Last 24 Hour Vital Signs Date Time Temp Pulse Resp B/P (MAP) Pulse Ox O2 Delivery O2 Flow Rate FiO2 06/28/17 12:00 97.4 64 20 110/55 99 97.4 06/28/17 08:00 97.6 60 18 105/71 95 97.6 06/28/17 04:00 97.5 61 20 116/56 100 97.5 06/28/17 00:00 97.4 65 20 102/66 98 97.4 06/27/17 21:00 56 106/47 06/27/17 20:00 97.3 56 20 106/47 96 97.3 06/27/17 16:00 97.2 58 19 85/46 96 Room Air 97.2 Intake and Output 06/27/17 06/28/17 19:00 07:00 Intake Total 405 ml 720 ml Balance 405 ml 720 ml Intake Oral 720 ml IV Total 405 ml # Voids 3 # Bowel Movements 1 2 HEENT: other - clean dressing on face/ right side of the face Respiratory/Chest: chest wall non-tender, lungs clear Cardiovascular: normal peripheral pulses, normal rate Abdomen: normal bowel sounds, soft, non tender Genitourinary: normal external genitalia Extremities: no clubbing Skin: no rash Microbiology Date/Time Source Procedure Growth Status 06/25/17 23:30 Eye Right Gram Stain - Final Resulted 06/25/17 23:30 Wound Culture - Preliminary Staphylococcus Aureus Diphtheroids Resulted Laboratory Tests 06/28/17 06:30: White Blood Count 10.1, Red Blood Count 3.38L, Hemoglobin 10.2L, Hematocrit 30.7L, Mean Corpuscular Volume 91, Mean Corpuscular Hemoglobin 30.1, Mean Corpuscular Hemoglobin Concent 33.1, Red Cell Distribution Width 13.5, Platelet Count 253, Mean Platelet Volume 7.6, Neutrophils (%) (Auto) , Lymphocytes (%) ( Auto) , Monocytes (%) (Auto) , Eosinophils (%) (Auto) , Basophils (%) (Auto) , Differential Total Cells Counted 100, Neutrophils % (Manual) 41L, Lymphocytes % (Manual) 53H, Monocytes % (Manual) 3, Eosinophils % (Manual) 3, Basophils % ( Manual) 0, Band Neutrophils 0, Platelet Estimate Adequate, Platelet Morphology Normal, Red Blood Cell Morphology Normal, Sodium Level 144, Potassium Level 3.0L , Chloride Level 109H, Carbon Dioxide Level 28, Anion Gap 7, Blood Urea Nitrogen 6L, Creatinine 0.7, Estimat Glomerular Filtration Rate > 60, Glucose Level 83, Calcium Level 8.3L Current Medications Medications (Trade) Dose Ordered Sig/Jordi Route PRN Reason Start Time Stop Time Status Last Admin Dose Admin Acetaminophen (Tylenol) 325 mg Q4H PRN ORAL Mild Pain/Temp > 100.5 06/25/17 04:30 07/25/17 04:29 Amlodipine Besylate (Norvasc) 5 mg QHS ORAL 06/25/17 21:00 07/25/17 20:59 06/27/17 21:00 Ascorbic Acid (Vitamin C) 500 mg DAILY ORAL 06/25/17 21:00 07/25/17 20:59 06/28/17 09:59 Aspirin (Ecotrin) 81 mg DAILY ORAL 06/25/17 21:00 07/25/17 20:59 06/28/17 09:59 Ceftriaxone Sodium 2 gm/ Sodium Chloride 55 ml @ 110 mls/hr EVERY 12 HOURS IVPB 06/26/17 11:00 07/03/17 10:59 06/28/17 09:58 Chlorpromazine (Thorazine) 50 mg Q6H PRN ORAL agitation 06/27/17 23:30 07/27/17 23:29 Clonazepam (KlonoPIN) 1 mg BID ORAL 06/25/17 21:00 07/02/17 20:59 06/28/17 09:58 Enoxaparin Sodium (Lovenox) 40 mg DAILY SUBQ 06/25/17 09:00 07/25/17 08:59 06/28/17 09:59 Lactobacillus Acidophilus (Culturelle) 1 tab DAILY ORAL 06/25/17 21:00 07/25/17 20:59 06/28/17 09:59 Metronidazole 100 ml @ 100 mls/hr Q6HR IVPB 06/26/17 00:00 07/03/17 00:00 06/28/17 12:25 Multivitamins (Multivitamins) 1 tab DAILY ORAL 06/25/17 21:00 07/25/17 20:59 06/28/17 09:59 Olanzapine (ZyPREXA) 5 mg BID ORAL 06/28/17 09:00 07/28/17 08:59 06/28/17 09:59 Pantoprazole (Protonix) 40 mg DAILY ORAL 06/25/17 21:00 07/25/17 20:59 06/28/17 09:59 Temazepam (Restoril) 15 mg QHS ORAL 06/25/17 21:00 07/02/17 20:59 06/27/17 20:43 Vancomycin HCl (Vanco rx to dose) 1 ea DAILY PRN MISC Per rx protocol 06/25/17 22:00 07/25/17 21:59 Vancomycin HCl/ Dextrose 250 ml @ 166.667 mls/hr Q12HR@0300,1500 IVPB 06/27/17 15:30 07/02/17 15:29 06/28/17 04:13 Waleska Thornton MD Jun 28, 2017 14:30
--- NOTE | 2017-06-28 14:43 | General Progress Note ---
Assessment/Plan Problem List: (1) Cellulitis and abscess of face ICD Codes: L03.211 - Cellulitis of face; L02.01 - Cutaneous abscess of face SNOMED: 397944968 (2) Basal cell carcinoma ICD Codes: C44.91 - Basal cell carcinoma of skin, unspecified SNOMED: 705867920 (3) Periorbital swelling ICD Codes: H57.8 - Periorbital swelling SNOMED: 745488195 (4) Schizophreniform psychosis ICD Codes: F20.9 - Schizophreniform psychosis SNOMED: 67305396 (5) Failure to thrive in adult ICD Codes: R62.7 - Adult failure to thrive SNOMED: 470808204 (6) Cancer ICD Codes: C80.1 - Malignant (primary) neoplasm, unspecified SNOMED: 079904534 Status: unchanged Assessment/Plan ot pt diet abx cbc bmp am gi psyc possible hospice eval Subjective Constitutional: Reports: weakness Allergies: Coded Allergies: BENZTROPINE (Unverified Allergy, Unknown, 02/22/14) HALOPERIDOL (Unverified Allergy, Unknown, 02/22/14) PENICILLINS (Unverified Allergy, Unknown, 02/22/14) All Systems: reviewed and negative except above Subjective lethargic in bed Objective Last 24 Hour Vital Signs Date Time Temp Pulse Resp B/P (MAP) Pulse Ox O2 Delivery O2 Flow Rate FiO2 06/28/17 12:00 97.4 64 20 110/55 99 97.4 06/28/17 08:00 97.6 60 18 105/71 95 97.6 06/28/17 04:00 97.5 61 20 116/56 100 97.5 06/28/17 00:00 97.4 65 20 102/66 98 97.4 06/27/17 21:00 56 106/47 06/27/17 20:00 97.3 56 20 106/47 96 97.3 06/27/17 16:00 97.2 58 19 85/46 96 Room Air 97.2 Intake and Output 06/27/17 06/28/17 19:00 07:00 Intake Total 405 ml 720 ml Balance 405 ml 720 ml Intake Oral 720 ml IV Total 405 ml # Voids 3 # Bowel Movements 1 2 Laboratory Tests 06/28/17 06:30: White Blood Count 10.1, Red Blood Count 3.38L, Hemoglobin 10.2L, Hematocrit 30.7L, Mean Corpuscular Volume 91, Mean Corpuscular Hemoglobin 30.1, Mean Corpuscular Hemoglobin Concent 33.1, Red Cell Distribution Width 13.5, Platelet Count 253, Mean Platelet Volume 7.6, Neutrophils (%) (Auto) , Lymphocytes (%) ( Auto) , Monocytes (%) (Auto) , Eosinophils (%) (Auto) , Basophils (%) (Auto) , Differential Total Cells Counted 100, Neutrophils % (Manual) 41L, Lymphocytes % (Manual) 53H, Monocytes % (Manual) 3, Eosinophils % (Manual) 3, Basophils % ( Manual) 0, Band Neutrophils 0, Platelet Estimate Adequate, Platelet Morphology Normal, Red Blood Cell Morphology Normal, Sodium Level 144, Potassium Level 3.0L , Chloride Level 109H, Carbon Dioxide Level 28, Anion Gap 7, Blood Urea Nitrogen 6L, Creatinine 0.7, Estimat Glomerular Filtration Rate > 60, Glucose Level 83, Calcium Level 8.3L Height (Feet): 5 Height (Inches): 6.00 Weight (Pounds): 138 General Appearance: lethargic EENT: normal ENT inspection Neck: normal alignment Cardiovascular: normal peripheral pulses, normal rate, regular rhythm Respiratory/Chest: chest wall non-tender, lungs clear, normal breath sounds Abdomen: normal bowel sounds, non tender, soft Extremities: normal inspection Edema: no edema noted Arm (L), no edema noted Arm (R), no edema noted Leg (L), no edema noted Leg (R), no edema noted Pedal (L), no edema noted Pedal (R), no edema noted Generalized Neurologic: motor weakness Skin: normal pigmentation, warm/dry STEF GILL Jun 28, 2017 14:43
--- NOTE | 2017-06-28 15:03 | Infectious Diseases Prog Note ---
Assessment/Plan Assessment/Plan ASSESSMENT: 1.R facial wound- likely superinfected necrotic tumor/mass- possible micro abscess per CT findings -CT orbits: Evidence of resection of previously demonstrated large periorbital mass demonstrated on prior study of 08/13/2014. However, there is evidence of extensive recurrent tumor involving the preseptal and postseptal right lateral orbit, the malar soft tissues, and invading and destroying portions of the lateral orbital wall and zygomatic arch, dimensions given above. There is evidence of large central soft tissue ulcer which should be clinically evident. Multiple foci of subtle low-attenuation within various areas of the mass probably represent necrotic tumor but could represent small abscesses. 19 x 18 mm mass in the right preauricular region, presumably representing enlargement of abnormality in the same area demonstrated previously. There is now evidence of erosion of the lateral aspect of the right mandibular condyle. Sinus disease as described. Equivocally abnormal appearance to the anterior tongue, does not protrude as far anteriorly as expected, may be positional but correlate with surgical history. Equivocal evidence of residual left supraorbital disease -CT head: no acute findings -wound cx Staph Aureus, diphteroids, Proteus mirabilis, ?ESBL (S Ertapenem, Zosyn; R Ancef, amp, bactrim, levo) -Bcx NTD 2. Leukocytosis, resolved -CXR no acute disease -u/a neg 3. Afebrile. - History of basal cell carcinoma, status post resection. -Status post resection of right eye (enucleation). -History of hypertension. -COPD. -Schizophrenia. -VRE/MRSA colonized PLAN: 1.Continue IV vancomycin#4 and switch Rocephin, and Flagyl abx d#4 to Ertapenem as possible Proteus ESBL; duration at a minimum 14 days if consistent with goals of care -06/25 SP Levaquin, bactrim -f/u cx -Monitor CBC/BMP, temperatures -Consideration for hospice ongoing Thank you, Dr. Julio Higgins, for allowing me to participate in the care of this patient. I will follow the patient with you during this hospitalization. Subjective Allergies: Coded Allergies: BENZTROPINE (Unverified Allergy, Unknown, 02/22/14) HALOPERIDOL (Unverified Allergy, Unknown, 02/22/14) PENICILLINS (Unverified Allergy, Unknown, 02/22/14) Subjective afebrile leukocytosis resolveed Objective Vital Signs Last 24 Hour Vital Signs Date Time Temp Pulse Resp B/P (MAP) Pulse Ox O2 Delivery O2 Flow Rate FiO2 06/28/17 12:00 97.4 64 20 110/55 99 97.4 06/28/17 08:00 97.6 60 18 105/71 95 97.6 06/28/17 04:00 97.5 61 20 116/56 100 97.5 06/28/17 00:00 97.4 65 20 102/66 98 97.4 06/27/17 21:00 56 106/47 06/27/17 20:00 97.3 56 20 106/47 96 97.3 06/27/17 16:00 97.2 58 19 85/46 96 Room Air 97.2 Height (Feet): 5 Height (Inches): 6.00 Weight (Pounds): 138 Objective HEENT: The patient has purulent discharge from the extensive right facial wound and right eye. NECK: No lymphadenopathy. CHEST: Clear. HEART: S1, S2. ABDOMEN: Soft. EXTREMITIES: No cyanosis at this time. NEUROLOGIC: Confused. Microbiology Date/Time Source Procedure Growth Status 06/25/17 23:30 Eye Right Gram Stain - Final Resulted 06/25/17 23:30 Wound Culture - Preliminary Staphylococcus Aureus Diphtheroids Resulted Laboratory Tests Test 06/28/17 06:30 White Blood Count 10.1 K/UL (4.8-10.8) Red Blood Count 3.38 M/UL (4.70-6.10) L Hemoglobin 10.2 G/DL (14.2-18.0) L Hematocrit 30.7 % (42.0-52.0) L Mean Corpuscular Volume 91 FL (80-99) Mean Corpuscular Hemoglobin 30.1 PG (27.0-31.0) Mean Corpuscular Hemoglobin Concent 33.1 G/DL (32.0-36.0) Red Cell Distribution Width 13.5 % (11.6-14.8) Platelet Count 253 K/UL (150-450) Mean Platelet Volume 7.6 FL (6.5-10.1) Neutrophils (%) (Auto) % (45.0-75.0) Lymphocytes (%) (Auto) % (20.0-45.0) Monocytes (%) (Auto) % (1.0-10.0) Eosinophils (%) (Auto) % (0.0-3.0) Basophils (%) (Auto) % (0.0-2.0) Differential Total Cells Counted 100 Neutrophils % (Manual) 41 % (45-75) L Lymphocytes % (Manual) 53 % (20-45) H Monocytes % (Manual) 3 % (1-10) Eosinophils % (Manual) 3 % (0-3) Basophils % (Manual) 0 % (0-2) Band Neutrophils 0 % (0-8) Platelet Estimate Adequate Platelet Morphology Normal Red Blood Cell Morphology Normal Sodium Level 144 MMOL/L (136-145) Potassium Level 3.0 MMOL/L (3.5-5.1) L Chloride Level 109 MMOL/L (98-107) H Carbon Dioxide Level 28 MMOL/L (21-32) Anion Gap 7 mmol/L (5-15) Blood Urea Nitrogen 6 mg/dL (7-18) L Creatinine 0.7 MG/DL (0.55-1.30) Estimat Glomerular Filtration Rate > 60 mL/min (>60) Glucose Level 83 MG/DL (74-106) Calcium Level 8.3 MG/DL (8.5-10.1) L Current Medications Medications (Trade) Dose Ordered Sig/Jordi Route PRN Reason Start Time Stop Time Status Last Admin Dose Admin Acetaminophen (Tylenol) 325 mg Q4H PRN ORAL Mild Pain/Temp > 100.5 06/25/17 04:30 07/25/17 04:29 Amlodipine Besylate (Norvasc) 5 mg QHS ORAL 06/25/17 21:00 07/25/17 20:59 06/27/17 21:00 Ascorbic Acid (Vitamin C) 500 mg DAILY ORAL 06/25/17 21:00 07/25/17 20:59 06/28/17 09:59 Aspirin (Ecotrin) 81 mg DAILY ORAL 06/25/17 21:00 07/25/17 20:59 06/28/17 09:59 Ceftriaxone Sodium 2 gm/ Sodium Chloride 55 ml @ 110 mls/hr EVERY 12 HOURS IVPB 06/26/17 11:00 07/03/17 10:59 06/28/17 09:58 Chlorpromazine (Thorazine) 50 mg Q6H PRN ORAL agitation 06/27/17 23:30 07/27/17 23:29 Clonazepam (KlonoPIN) 1 mg BID ORAL 06/25/17 21:00 07/02/17 20:59 06/28/17 09:58 Enoxaparin Sodium (Lovenox) 40 mg DAILY SUBQ 06/25/17 09:00 07/25/17 08:59 06/28/17 09:59 Lactobacillus Acidophilus (Culturelle) 1 tab DAILY ORAL 06/25/17 21:00 07/25/17 20:59 06/28/17 09:59 Metronidazole 100 ml @ 100 mls/hr Q6HR IVPB 06/26/17 00:00 07/03/17 00:00 06/28/17 12:25 Multivitamins (Multivitamins) 1 tab DAILY ORAL 06/25/17 21:00 07/25/17 20:59 06/28/17 09:59 Olanzapine (ZyPREXA) 5 mg BID ORAL 06/28/17 09:00 07/28/17 08:59 06/28/17 09:59 Pantoprazole (Protonix) 40 mg DAILY ORAL 06/25/17 21:00 07/25/17 20:59 06/28/17 09:59 Temazepam (Restoril) 15 mg QHS ORAL 06/25/17 21:00 07/02/17 20:59 06/27/17 20:43 Vancomycin HCl (Vanco rx to dose) 1 ea DAILY PRN MISC Per rx protocol 06/25/17 22:00 07/25/17 21:59 Vancomycin HCl/ Dextrose 250 ml @ 166.667 mls/hr Q12HR@0300,1500 IVPB 06/27/17 15:30 07/02/17 15:29 06/28/17 04:13 Carmella Spring M.D. Jun 28, 2017 15:03
[2017-06-28 15:51] VITALS: BP 126/71
--- NOTE | 2017-06-28 16:01 | GI Progress Note ---
Assessment/Plan Problems: (1) Basal cell carcinoma ICD Codes: C44.91 - Basal cell carcinoma of skin, unspecified SNOMED: 706415208 (2) Severe malnutrition ICD Codes: E43 - Unspecified severe protein-calorie malnutrition SNOMED: 92762294 (3) Poor fluid intake ICD Codes: R63.8 - Other symptoms and signs concerning food and fluid intake SNOMED: 045155517 (4) Dehydration ICD Codes: E86.0 - Dehydration SNOMED: 74789415 (5) Periorbital swelling ICD Codes: H57.8 - Periorbital swelling SNOMED: 179579545 (6) Failure to thrive in adult ICD Codes: R62.7 - Adult failure to thrive SNOMED: 658100327 (7) Schizophreniform psychosis ICD Codes: F20.9 - Schizophreniform psychosis SNOMED: 84027124 Status: unchanged Status Narrative Discussed with Dr. Ferguson. Assessment/Plan regular diet, but has poor PO intake >> calorie count x 48 hours consider NGT for temporary nutrition if necessary, PEG if DPOA agrees IV/PO hydration + electrolyte replacement ppi fu labs ethics consult for hospice Subjective Subjective limited Objective Last 24 Hour Vital Signs Date Time Temp Pulse Resp B/P (MAP) Pulse Ox O2 Delivery O2 Flow Rate FiO2 06/28/17 15:51 97.6 64 20 126/71 99 97.6 06/28/17 12:00 97.4 64 20 110/55 99 97.4 06/28/17 08:00 97.6 60 18 105/71 95 97.6 06/28/17 04:00 97.5 61 20 116/56 100 97.5 06/28/17 00:00 97.4 65 20 102/66 98 97.4 06/27/17 21:00 56 106/47 06/27/17 20:00 97.3 56 20 106/47 96 97.3 Intake and Output 06/27/17 06/28/17 19:00 07:00 Intake Total 405 ml 720 ml Balance 405 ml 720 ml Intake Oral 720 ml IV Total 405 ml # Voids 3 # Bowel Movements 1 2 Laboratory Tests Test 06/28/17 06:30 White Blood Count 10.1 K/UL (4.8-10.8) Red Blood Count 3.38 M/UL (4.70-6.10) L Hemoglobin 10.2 G/DL (14.2-18.0) L Hematocrit 30.7 % (42.0-52.0) L Mean Corpuscular Volume 91 FL (80-99) Mean Corpuscular Hemoglobin 30.1 PG (27.0-31.0) Mean Corpuscular Hemoglobin Concent 33.1 G/DL (32.0-36.0) Red Cell Distribution Width 13.5 % (11.6-14.8) Platelet Count 253 K/UL (150-450) Mean Platelet Volume 7.6 FL (6.5-10.1) Neutrophils (%) (Auto) % (45.0-75.0) Lymphocytes (%) (Auto) % (20.0-45.0) Monocytes (%) (Auto) % (1.0-10.0) Eosinophils (%) (Auto) % (0.0-3.0) Basophils (%) (Auto) % (0.0-2.0) Differential Total Cells Counted 100 Neutrophils % (Manual) 41 % (45-75) L Lymphocytes % (Manual) 53 % (20-45) H Monocytes % (Manual) 3 % (1-10) Eosinophils % (Manual) 3 % (0-3) Basophils % (Manual) 0 % (0-2) Band Neutrophils 0 % (0-8) Platelet Estimate Adequate Platelet Morphology Normal Red Blood Cell Morphology Normal Sodium Level 144 MMOL/L (136-145) Potassium Level 3.0 MMOL/L (3.5-5.1) L Chloride Level 109 MMOL/L (98-107) H Carbon Dioxide Level 28 MMOL/L (21-32) Anion Gap 7 mmol/L (5-15) Blood Urea Nitrogen 6 mg/dL (7-18) L Creatinine 0.7 MG/DL (0.55-1.30) Estimat Glomerular Filtration Rate > 60 mL/min (>60) Glucose Level 83 MG/DL (74-106) Calcium Level 8.3 MG/DL (8.5-10.1) L Height (Feet): 5 Height (Inches): 6.00 Weight (Pounds): 138 General Appearance: no apparent distress, alert, confused, other - facial carcinoma Cardiovascular: normal rate Respiratory/Chest: normal breath sounds, no respiratory distress Abdominal Exam: normal bowel sounds, non tender, soft Extremities: normal range of motion, non-tender Brunilda Saavedra N.P. Jun 28, 2017 16:01
[2017-06-28] MEDS: Ertapenem 1 GM in NS 55 ML IVPB SCH (18:10)
[2017-06-28 20:00] VITALS: BP 126/87
[2017-06-29] VITALS: BP 132/79
[2017-06-29] MEDS: Vancomycin 1250mg/D5W 250ml IVPB SCH ×2 (02:53→15:53)
[2017-06-29 04:00] VITALS: BP 108/58
[2017-06-29 08:00] VITALS: BP 157/84
[2017-06-29] MEDS: Aspirin EC 81mg tab ORAL SCH (08:39)
[2017-06-29] MEDS: Lactobacillus-GG tablet ORAL SCH (08:39)
[2017-06-29] MEDS: Ascorbic Acid 500mg tab ORAL SCH (08:39)
[2017-06-29] MEDS: Enoxaparin 40mg Inj SUBQ SCH (08:40)
--- NOTE | 2017-06-29 10:08 | General Progress Note ---
Assessment/Plan Assessment/Plan 1. Failure to thrive secondary to recent cancer, history of facial cancer. --> It is likely BCC, will recommend to obtain actual pathology report from [facility] --> have discussed with sister that patient will likely need 30 treatments with radiation in addition to a BRAF inhibitor which he will have to take religiously , and cannot miss sessions or followup and this is not something that I forsee he is capable of --> [facility] 2. Facial cancer, on outpatient management. --> Has not received any treatment in the past due to poor compliance and has refused several times to meet with oncologist ---> most recently saw Dr. Patino at [facility] and had similar recommendations would need to display that he can stay in a still position for 1 -2 hours at a time to get steriotactic radiation 3. Urinary tract infection. The patient has been given Levaquin, --> antibiotics and fluids have been administered, currently is improved status post intravenous fluids. 4. Leukocytosis, likely secondary to underlying infection. --> On antibiotics. --> Downtrended and resolved. 5. Anemia due to underlying chronic disease. Continue to closely monitor. --> Transfuse if hgb <7 --> Hgb has been stable and above goal. No blood transfusion needed. 6. Coagulopathy, potentially secondary to liver disease. Closely monitor 7. Deep venous thrombosis prophylaxis with Lovenox. --> Monitor. Subjective Date patient seen: Jun 28, 2017 Constitutional: Denies: no symptoms, chills, diaphoresis, fever, malaise, weakness, other HEENT: Denies: no symptoms, eye pain, blurred vision, tearing, double vision, ear pain, ear discharge, nose pain, nose congestion, throat pain, throat swelling, mouth pain, mouth swelling, other Cardiovascular: Denies: no symptoms, chest pain, edema, irregular heart rate, lightheadedness, palpitations, syncope, other Respiratory: Denies: no symptoms, cough, orthopnea, shortness of breath, SOB with excertion, SOB at rest, sputum, stridor, wheezing, other Gastrointestinal/Abdominal: Denies: no symptoms, abdomen distended, abdominal pain, black stools, tarry stools, blood in stool, constipated, diarrhea, difficulty swallowing, nausea, poor appetite, poor fluid intake, rectal bleeding , vomiting, other Genitourinary: Denies: no symptoms, burning, discharge, frequency, flank pain, hematuria, incontinence, pain, urgency, other Neurologic/Psychiatric: Denies: no symptoms, anxiety, depressed, emotional problems, headache, numbness, paresthesia, pre-existing deficit, seizure, tingling, tremors, weakness, other Hematologic/Lymphatic: Reports: anemia Allergies: Coded Allergies: BENZTROPINE (Unverified Allergy, Unknown, 02/22/14) HALOPERIDOL (Unverified Allergy, Unknown, 02/22/14) PENICILLINS (Unverified Allergy, Unknown, 02/22/14) Subjective H/H stable. On anticoag. NAD. Objective Last 24 Hour Vital Signs Date Time Temp Pulse Resp B/P (MAP) Pulse Ox O2 Delivery O2 Flow Rate FiO2 06/29/17 08:00 97.7 71 20 157/84 97 97.7 06/29/17 04:00 97.6 67 20 108/58 93 97.6 06/29/17 00:00 97.2 61 21 132/79 98 97.2 06/28/17 21:39 69 126/87 06/28/17 20:00 97.1 69 21 126/87 98 97.1 06/28/17 15:51 97.6 64 20 126/71 99 97.6 06/28/17 12:00 97.4 64 20 110/55 99 97.4 Intake and Output 06/28/17 06/29/17 19:00 07:00 Intake Total 2140.000 ml 250.000 ml Balance 2140.000 ml 250.000 ml Intake Oral 1680 ml IV Total 460.000 ml 250.000 ml # Voids 3 # Bowel Movements 1 Height (Feet): 5 Height (Inches): 6.00 Weight (Pounds): 138 Jr Daly Jun 29, 2017 10:08
--- NOTE | 2017-06-29 10:44 | GI Progress Note ---
Assessment/Plan Problems: (1) Basal cell carcinoma ICD Codes: C44.91 - Basal cell carcinoma of skin, unspecified SNOMED: 864640072 (2) Severe malnutrition ICD Codes: E43 - Unspecified severe protein-calorie malnutrition SNOMED: 73887559 (3) Poor fluid intake ICD Codes: R63.8 - Other symptoms and signs concerning food and fluid intake SNOMED: 905107745 (4) Dehydration ICD Codes: E86.0 - Dehydration SNOMED: 82670209 (5) Periorbital swelling ICD Codes: H57.8 - Periorbital swelling SNOMED: 975243445 (6) Failure to thrive in adult ICD Codes: R62.7 - Adult failure to thrive SNOMED: 324720527 (7) Schizophreniform psychosis ICD Codes: F20.9 - Schizophreniform psychosis SNOMED: 36798521 Status: unchanged Status Narrative Discussed with Dr. Ferguson. Assessment/Plan regular diet, but has poor PO intake >> calorie count x 48 hours consider NGT for temporary nutrition if necessary, PEG if DPOA agrees IV/PO hydration + electrolyte replacement ppi fu labs fu onc recs ethics consult for hospice Subjective Subjective limited Objective Last 24 Hour Vital Signs Date Time Temp Pulse Resp B/P (MAP) Pulse Ox O2 Delivery O2 Flow Rate FiO2 06/29/17 08:00 97.7 71 20 157/84 97 97.7 06/29/17 04:00 97.6 67 20 108/58 93 97.6 06/29/17 00:00 97.2 61 21 132/79 98 97.2 06/28/17 21:39 69 126/87 06/28/17 20:00 97.1 69 21 126/87 98 97.1 06/28/17 15:51 97.6 64 20 126/71 99 97.6 06/28/17 12:00 97.4 64 20 110/55 99 97.4 Intake and Output 06/28/17 06/29/17 19:00 07:00 Intake Total 2140.000 ml 250.000 ml Balance 2140.000 ml 250.000 ml Intake Oral 1680 ml IV Total 460.000 ml 250.000 ml # Voids 3 # Bowel Movements 1 Height (Feet): 5 Height (Inches): 6.00 Weight (Pounds): 138 General Appearance: WD/WN, no apparent distress, alert Cardiovascular: normal rate Respiratory/Chest: normal breath sounds, no respiratory distress Abdominal Exam: normal bowel sounds, non tender, soft Extremities: non-tender Brunilda Saavedra N.P. Jun 29, 2017 10:44
[2017-06-29] MEDS ORDERED: Tubing IV Secondary IV ONE ×3 (11:09→14:49)
--- NOTE | 2017-06-29 11:36 | Infectious Diseases Prog Note ---
Assessment/Plan Assessment/Plan ASSESSMENT: 1.R facial wound- likely superinfected necrotic tumor/mass- possible micro abscess per CT findings -CT orbits: Evidence of resection of previously demonstrated large periorbital mass demonstrated on prior study of 08/13/2014. However, there is evidence of extensive recurrent tumor involving the preseptal and postseptal right lateral orbit, the malar soft tissues, and invading and destroying portions of the lateral orbital wall and zygomatic arch, dimensions given above. There is evidence of large central soft tissue ulcer which should be clinically evident. Multiple foci of subtle low-attenuation within various areas of the mass probably represent necrotic tumor but could represent small abscesses. 19 x 18 mm mass in the right preauricular region, presumably representing enlargement of abnormality in the same area demonstrated previously. There is now evidence of erosion of the lateral aspect of the right mandibular condyle. Sinus disease as described. Equivocally abnormal appearance to the anterior tongue, does not protrude as far anteriorly as expected, may be positional but correlate with surgical history. Equivocal evidence of residual left supraorbital disease -CT head: no acute findings -wound cx MRSA (S Vanco, bactrim; R tetracycline), diphteroids, ESBL Proteus mirabilis (S Ertapenem, Zosyn; R Ancef, amp, bactrim, levo) -Bcx NTD 2. Leukocytosis, resolved -CXR no acute disease -u/a neg 3. Afebrile. - History of basal cell carcinoma, status post resection. -Status post resection of right eye (enucleation). -History of hypertension. -COPD. -Schizophrenia. -VRE/MRSA colonized PLAN: -Continue IV vancomycin#5 and Ertapenem #2 for MRSA and Proteus ESBL, respectively for infected necrotic mass; duration at a minimum 14 days if consistent with goals of care -06/28 SP Ceftriaxone and Flagyl #4 -06/25 SP Levaquin, bactrim -f/u cx -Monitor CBC/BMP, temperatures -Consideration for hospice ongoing Thank you, Dr. Julio Higgins, for allowing me to participate in the care of this patient. I will follow the patient with you during this hospitalization. Subjective Allergies: Coded Allergies: BENZTROPINE (Unverified Allergy, Unknown, 02/22/14) HALOPERIDOL (Unverified Allergy, Unknown, 02/22/14) PENICILLINS (Unverified Allergy, Unknown, 02/22/14) Subjective afebrle no leukocytosis hospice eval Objective Vital Signs Last 24 Hour Vital Signs Date Time Temp Pulse Resp B/P (MAP) Pulse Ox O2 Delivery O2 Flow Rate FiO2 06/29/17 08:00 97.7 71 20 157/84 97 97.7 06/29/17 04:00 97.6 67 20 108/58 93 97.6 06/29/17 00:00 97.2 61 21 132/79 98 97.2 06/28/17 21:39 69 126/87 06/28/17 20:00 97.1 69 21 126/87 98 97.1 06/28/17 15:51 97.6 64 20 126/71 99 97.6 06/28/17 12:00 97.4 64 20 110/55 99 97.4 Height (Feet): 5 Height (Inches): 6.00 Weight (Pounds): 138 Objective HEENT: The patient has purulent discharge from the extensive right facial wound and right eye. NECK: No lymphadenopathy. CHEST: Clear. HEART: S1, S2. ABDOMEN: Soft. EXTREMITIES: No cyanosis at this time. NEUROLOGIC: Confused. Current Medications Medications (Trade) Dose Ordered Sig/Jordi Route PRN Reason Start Time Stop Time Status Last Admin Dose Admin Acetaminophen (Tylenol) 325 mg Q4H PRN ORAL Mild Pain/Temp > 100.5 06/25/17 04:30 07/25/17 04:29 Amlodipine Besylate (Norvasc) 5 mg QHS ORAL 06/25/17 21:00 07/25/17 20:59 06/28/17 21:39 Ascorbic Acid (Vitamin C) 500 mg DAILY ORAL 06/25/17 21:00 07/25/17 20:59 06/29/17 08:39 Aspirin (Ecotrin) 81 mg DAILY ORAL 06/25/17 21:00 07/25/17 20:59 06/29/17 08:39 Chlorpromazine (Thorazine) 50 mg Q6H PRN ORAL agitation 06/27/17 23:30 07/27/17 23:29 06/29/17 03:28 Clonazepam (KlonoPIN) 1 mg BID ORAL 06/25/17 21:00 07/02/17 20:59 06/29/17 08:39 Enoxaparin Sodium (Lovenox) 40 mg DAILY SUBQ 06/25/17 09:00 07/25/17 08:59 06/29/17 08:40 Ertapenem 1 gm/ Sodium Chloride 55 ml @ 110 mls/hr Q24H IVPB 06/28/17 16:30 07/03/17 23:59 06/28/17 18:10 Lactobacillus Acidophilus (Culturelle) 1 tab DAILY ORAL 06/25/17 21:00 07/25/17 20:59 06/29/17 08:39 Multivitamins (Multivitamins) 1 tab DAILY ORAL 06/25/17 21:00 07/25/17 20:59 06/29/17 08:39 Olanzapine (ZyPREXA) 5 mg BID ORAL 06/28/17 09:00 07/28/17 08:59 06/29/17 08:39 Pantoprazole (Protonix) 40 mg DAILY ORAL 06/25/17 21:00 07/25/17 20:59 06/29/17 08:39 Temazepam (Restoril) 15 mg QHS ORAL 06/25/17 21:00 07/02/17 20:59 06/28/17 21:39 Valproic Acid (Depakene) 250 mg Q8HR ORAL 06/29/17 13:00 07/29/17 12:59 Vancomycin HCl (Vanco rx to dose) 1 ea DAILY PRN MISC Per rx protocol 06/25/17 22:00 07/25/17 21:59 Vancomycin HCl/ Dextrose 250 ml @ 166.667 mls/hr Q12HR@0300,1500 IVPB 06/27/17 15:30 07/02/17 15:29 06/29/17 02:53 Carmella Spring M.D. Jun 29, 2017 11:36
[2017-06-29 12:00] VITALS: BP 157/67
[2017-06-29] MEDS ORDERED: Valproic Acid 250mg/5ml Liquid ORAL SCH (13:00)
--- NOTE | 2017-06-29 14:11 | General Progress Note ---
Assessment/Plan Problem List: (1) Cellulitis and abscess of face ICD Codes: L03.211 - Cellulitis of face; L02.01 - Cutaneous abscess of face SNOMED: 922071919 (2) Basal cell carcinoma ICD Codes: C44.91 - Basal cell carcinoma of skin, unspecified SNOMED: 642166135 (3) Periorbital swelling ICD Codes: H57.8 - Periorbital swelling SNOMED: 837495744 (4) Schizophreniform psychosis ICD Codes: F20.9 - Schizophreniform psychosis SNOMED: 82555414 (5) Failure to thrive in adult ICD Codes: R62.7 - Adult failure to thrive SNOMED: 016542793 (6) Cancer ICD Codes: C80.1 - Malignant (primary) neoplasm, unspecified SNOMED: 342659808 Status: unchanged Assessment/Plan ot pt diet abx cbc bmp am gi psyc possible hospice eval Subjective Constitutional: Reports: weakness Allergies: Coded Allergies: BENZTROPINE (Unverified Allergy, Unknown, 02/22/14) HALOPERIDOL (Unverified Allergy, Unknown, 02/22/14) PENICILLINS (Unverified Allergy, Unknown, 02/22/14) All Systems: reviewed and negative except above Subjective lethargic in bed Objective Last 24 Hour Vital Signs Date Time Temp Pulse Resp B/P (MAP) Pulse Ox O2 Delivery O2 Flow Rate FiO2 06/29/17 12:00 97.5 69 20 157/67 97 97.5 06/29/17 08:00 97.7 71 20 157/84 97 97.7 06/29/17 04:00 97.6 67 20 108/58 93 97.6 06/29/17 00:00 97.2 61 21 132/79 98 97.2 06/28/17 21:39 69 126/87 06/28/17 20:00 97.1 69 21 126/87 98 97.1 06/28/17 15:51 97.6 64 20 126/71 99 97.6 Intake and Output 06/28/17 06/29/17 19:00 07:00 Intake Total 2140.000 ml 250.000 ml Balance 2140.000 ml 250.000 ml Intake Oral 1680 ml IV Total 460.000 ml 250.000 ml # Voids 3 # Bowel Movements 1 Height (Feet): 5 Height (Inches): 6.00 Weight (Pounds): 138 General Appearance: lethargic EENT: normal ENT inspection Neck: normal alignment Cardiovascular: normal peripheral pulses, normal rate, regular rhythm Respiratory/Chest: chest wall non-tender, lungs clear, normal breath sounds Extremities: normal inspection Edema: no edema noted Arm (L), no edema noted Arm (R), no edema noted Leg (L), no edema noted Leg (R), no edema noted Pedal (L), no edema noted Pedal (R), no edema noted Generalized Neurologic: motor weakness Skin: normal pigmentation, warm/dry STEF GILL Jun 29, 2017 14:10
[2017-06-29] MEDS ORDERED: Sterile Water Irrig 1000ml IRRIG ONE (14:49)
[2017-06-29 16:00] VITALS: BP 159/80
[2017-06-29] MEDS ORDERED: VANCOMYCIN1 GM/2502 IVPB (16:40)
[2017-06-29] MEDS ORDERED: INVANZ1 GM IVPB (16:40)
[2017-06-29] MEDS ORDERED: VALPROIC A250 MG/51 PO (16:47)
[2017-06-29] MEDS ORDERED: ZYPREXA5 MG ORAL (16:47)
[2017-06-29] MEDS ORDERED: THORAZINE25 MG PO (16:49)
--- NOTE | 2017-06-29 17:39 | Pulmonology Progress Note ---
Assessment/Plan Problems: (1) Cellulitis and abscess of face (2) Failure to thrive in adult (3) Basal cell carcinoma Assessment/Plan d/w pts daughter at the bed site extensively check cultures wound care ethics evaluation for hospice referral Subjective ROS Limited/Unobtainable: No Constitutional: Reports: no symptoms HEENT: Repors: no symptoms Allergies: Coded Allergies: BENZTROPINE (Unverified Allergy, Unknown, 02/22/14) HALOPERIDOL (Unverified Allergy, Unknown, 02/22/14) PENICILLINS (Unverified Allergy, Unknown, 02/22/14) Objective Last 24 Hour Vital Signs Date Time Temp Pulse Resp B/P (MAP) Pulse Ox O2 Delivery O2 Flow Rate FiO2 06/29/17 12:00 97.5 69 20 157/67 97 97.5 06/29/17 08:00 97.7 71 20 157/84 97 97.7 06/29/17 04:00 97.6 67 20 108/58 93 97.6 06/29/17 00:00 97.2 61 21 132/79 98 97.2 06/28/17 21:39 69 126/87 06/28/17 20:00 97.1 69 21 126/87 98 97.1 Intake and Output 06/28/17 06/29/17 19:00 07:00 Intake Total 2140.000 ml 250.000 ml Balance 2140.000 ml 250.000 ml Intake Oral 1680 ml IV Total 460.000 ml 250.000 ml # Voids 3 # Bowel Movements 1 Objective General Appearance: WD/WN HEENT: normocephalic, anicteric, lean facial dressing Respiratory/Chest: chest wall non-tender, lungs clear Breasts: no masses Cardiovascular: normal peripheral pulses Genitourinary: normal external genitalia Extremities: no cyanosis Skin: no rash Current Medications Medications (Trade) Dose Ordered Sig/Jordi Route PRN Reason Start Time Stop Time Status Last Admin Dose Admin Acetaminophen (Tylenol) 325 mg Q4H PRN ORAL Mild Pain/Temp > 100.5 06/25/17 04:30 07/25/17 04:29 Amlodipine Besylate (Norvasc) 5 mg QHS ORAL 06/25/17 21:00 07/25/17 20:59 06/28/17 21:39 Ascorbic Acid (Vitamin C) 500 mg DAILY ORAL 06/25/17 21:00 07/25/17 20:59 06/29/17 08:39 Aspirin (Ecotrin) 81 mg DAILY ORAL 06/25/17 21:00 07/25/17 20:59 06/29/17 08:39 Chlorpromazine (Thorazine) 50 mg Q6H PRN ORAL agitation 06/27/17 23:30 07/27/17 23:29 06/29/17 03:28 Clonazepam (KlonoPIN) 1 mg BID ORAL 06/25/17 21:00 07/02/17 20:59 06/29/17 08:39 Enoxaparin Sodium (Lovenox) 40 mg DAILY SUBQ 06/25/17 09:00 07/25/17 08:59 06/29/17 08:40 Ertapenem 1 gm/ Sodium Chloride 55 ml @ 110 mls/hr Q24H IVPB 06/28/17 16:30 07/03/17 23:59 06/28/17 18:10 Lactobacillus Acidophilus (Culturelle) 1 tab DAILY ORAL 06/25/17 21:00 07/25/17 20:59 06/29/17 08:39 Multivitamins (Multivitamins) 1 tab DAILY ORAL 06/25/17 21:00 07/25/17 20:59 06/29/17 08:39 Olanzapine (ZyPREXA) 5 mg BID ORAL 06/28/17 09:00 07/28/17 08:59 06/29/17 08:39 Pantoprazole (Protonix) 40 mg DAILY ORAL 06/25/17 21:00 07/25/17 20:59 06/29/17 08:39 Temazepam (Restoril) 15 mg QHS ORAL 06/25/17 21:00 07/02/17 20:59 06/28/17 21:39 Valproic Acid (Depakene) 250 mg Q8HR ORAL 06/29/17 13:00 07/29/17 12:59 06/29/17 13:24 Vancomycin HCl (Vanco rx to dose) 1 ea DAILY PRN MISC Per rx protocol 06/25/17 22:00 07/25/17 21:59 Vancomycin HCl/ Dextrose 250 ml @ 166.667 mls/hr Q12HR@0300,1500 IVPB 06/27/17 15:30 07/02/17 15:29 06/29/17 15:53 Waleska Thornton MD Jun 29, 2017 17:39
[2017-06-29] MEDS: Ertapenem 1 GM in NS 55 ML IVPB SCH (17:54)
--- NOTE | 2017-06-29 22:19 | General Progress Note ---
Assessment/Plan Status: stable Status Narrative schizophrenia agitation cont current meds Subjective Date patient seen: Jun 28, 2017 Neurologic/Psychiatric: Reports: anxiety, depressed, emotional problems Allergies: Coded Allergies: BENZTROPINE (Unverified Allergy, Unknown, 02/22/14) HALOPERIDOL (Unverified Allergy, Unknown, 02/22/14) PENICILLINS (Unverified Allergy, Unknown, 02/22/14) Objective Last 24 Hour Vital Signs Date Time Temp Pulse Resp B/P (MAP) Pulse Ox O2 Delivery O2 Flow Rate FiO2 06/29/17 16:00 97.3 65 20 159/80 100 97.3 06/29/17 12:00 97.5 69 20 157/67 97 97.5 06/29/17 08:00 97.7 71 20 157/84 97 97.7 06/29/17 04:00 97.6 67 20 108/58 93 97.6 06/29/17 00:00 97.2 61 21 132/79 98 97.2 Intake and Output 06/28/17 06/29/17 19:00 07:00 Intake Total 2140.000 ml 250.000 ml Balance 2140.000 ml 250.000 ml Intake Oral 1680 ml IV Total 460.000 ml 250.000 ml # Voids 3 # Bowel Movements 1 Height (Feet): 5 Height (Inches): 6.00 Weight (Pounds): 138 General Appearance: no apparent distress, alert, confused, agitated Nathaniel Davis M.D. Jun 29, 2017 22:19
--- NOTE | 2017-06-29 22:19 | General Progress Note ---
Assessment/Plan Assessment/Plan schizophrenia agitation cont current meds Subjective Date patient seen: Jun 29, 2017 Allergies: Coded Allergies: BENZTROPINE (Unverified Allergy, Unknown, 02/22/14) HALOPERIDOL (Unverified Allergy, Unknown, 02/22/14) PENICILLINS (Unverified Allergy, Unknown, 02/22/14) Objective Last 24 Hour Vital Signs Date Time Temp Pulse Resp B/P (MAP) Pulse Ox O2 Delivery O2 Flow Rate FiO2 06/29/17 16:00 97.3 65 20 159/80 100 97.3 06/29/17 12:00 97.5 69 20 157/67 97 97.5 06/29/17 08:00 97.7 71 20 157/84 97 97.7 06/29/17 04:00 97.6 67 20 108/58 93 97.6 06/29/17 00:00 97.2 61 21 132/79 98 97.2 Intake and Output 06/28/17 06/29/17 19:00 07:00 Intake Total 2140.000 ml 250.000 ml Balance 2140.000 ml 250.000 ml Intake Oral 1680 ml IV Total 460.000 ml 250.000 ml # Voids 3 # Bowel Movements 1 Height (Feet): 5 Height (Inches): 6.00 Weight (Pounds): 138 Nathaniel Davis M.D. Jun 29, 2017 22:19
--- NOTE | 2017-06-30 12:05 | General Progress Note ---
Assessment/Plan Assessment/Plan 1. Failure to thrive secondary to recent cancer, history of facial cancer. --> It is likely BCC, will recommend to obtain actual pathology report from [facility] --> have discussed with sister that patient will likely need 30 treatments with radiation in addition to a BRAF inhibitor which he will have to take religiously , and cannot miss sessions or followup and this is not something that I forsee he is capable of --> [facility] 2. Facial cancer, on outpatient management. --> Has not received any treatment in the past due to poor compliance and has refused several times to meet with oncologist ---> most recently saw Dr. Patino at [facility] and had similar recommendations would need to display that he can stay in a still position for 1 -2 hours at a time to get steriotactic radiation 3. Urinary tract infection. The patient has been given Levaquin, --> antibiotics and fluids have been administered, currently is improved status post intravenous fluids. 4. Leukocytosis, likely secondary to underlying infection. --> On antibiotics. --> Downtrended and resolved. 5. Anemia due to underlying chronic disease. Continue to closely monitor. --> Transfuse if hgb <7 --> Hgb has been stable and above goal. No blood transfusion needed. 6. Coagulopathy, potentially secondary to liver disease. Closely monitor 7. Deep venous thrombosis prophylaxis with Lovenox. --> Monitor. Subjective Date patient seen: Jun 29, 2017 Constitutional: Denies: no symptoms, chills, diaphoresis, fever, malaise, weakness, other HEENT: Denies: no symptoms, eye pain, blurred vision, tearing, double vision, ear pain, ear discharge, nose pain, nose congestion, throat pain, throat swelling, mouth pain, mouth swelling, other Cardiovascular: Denies: no symptoms, chest pain, edema, irregular heart rate, lightheadedness, palpitations, syncope, other Respiratory: Denies: no symptoms, cough, orthopnea, shortness of breath, SOB with excertion, SOB at rest, sputum, stridor, wheezing, other Gastrointestinal/Abdominal: Denies: no symptoms, abdomen distended, abdominal pain, black stools, tarry stools, blood in stool, constipated, diarrhea, difficulty swallowing, nausea, poor appetite, poor fluid intake, rectal bleeding , vomiting, other Genitourinary: Denies: no symptoms, burning, discharge, frequency, flank pain, hematuria, incontinence, pain, urgency, other Neurologic/Psychiatric: Denies: no symptoms, anxiety, depressed, emotional problems, headache, numbness, paresthesia, pre-existing deficit, seizure, tingling, tremors, weakness, other Allergies: Coded Allergies: BENZTROPINE (Unverified Allergy, Unknown, 02/22/14) HALOPERIDOL (Unverified Allergy, Unknown, 02/22/14) PENICILLINS (Unverified Allergy, Unknown, 02/22/14) Subjective No fever or chills. NAD. Pending dc. Objective Last 24 Hour Vital Signs Date Time Temp Pulse Resp B/P (MAP) Pulse Ox O2 Delivery O2 Flow Rate FiO2 06/29/17 16:00 97.3 65 20 159/80 100 97.3 Height (Feet): 5 Height (Inches): 6.00 Weight (Pounds): 138 General Appearance: no apparent distress Respiratory/Chest: decreased breath sounds Abdomen: soft Jr Daly Jun 30, 2017 12:05
--- NOTE | 2017-06-30 15:16 | Discharge Summary ---
Discharge Summary Hospital Course Date of Admission Jun 24, 2017 at 18:30 Date of Discharge Jun 29, 2017 at 18:33 Admitting Diagnosis generalized weakness, failure to thrive, cancer HPI Xu David is a 56 year old male who was admitted on Jun 24, 2017 at 18:30 for Generalized Weakness,Failure To Thrive,Cancer Hospital Course [id number] Discharge Discharge Disposition Patient was discharged to SNF/Subacute Facility(03) Discharge Diagnoses: Alysia Cannon NP Jun 30, 2017 15:16
--- NOTE | 2017-07-01 04:15 | Discharge Summary 2 SIG ---
DATE OF ADMISSION: 06/24/2017 DATE OF DISCHARGE: 06/29/2017 CONSULTANTS: 1. Jr Daly M.D. 2. Nathaniel Davis M.D. 3. Waleska Thornton M.D. 4. Carmella Spring M.D. BRIEF HOSPITAL COURSE: The patient is a 56-year-old male, who was brought in by EMS after increased generalized weakness and decreased oral intake. The patient was noted to be nonverbal and had history of facial cancer. The patient was taken to ED for evaluation of decreased p.o. intake. However, no vomiting. On evaluation at ED, WBC was 14.8, creatinine was 1.7, BUN 53, sodium was 144, and chloride 109. Initial troponin was negative. The patient was dehydrated and was started on IV fluids. Urinalysis showed 1+ leukocyte esterase, 5-10 rbc, and 2-4 wbc. He was admitted for failure to thrive and possible urine infection. He was followed by Infectious Diseases specialist and was started on IV vancomycin, Rocephin, and Flagyl. He had head/orbit CT that showed large periorbital mass with extensive recurrent tumor involving the preseptal and postseptal right lateral orbit, malar soft tissues, and invading and destroying portions of the lateral orbital wall and zygomatic arch. There was evidence of large central soft tissue ulcer with multiple foci of subtle low attenuation within various areas of the mass probably necrotic tumor, but could represent small abscess. There was a mass on the right preauricular region with evidence of erosion on the lateral aspect of right mandibular condyle. Head CT was negative for acute intracranial bleed, mass effect, or contrast enhancing lesion. The patient had poor p.o. intake with severe malnutrition and dehydration. GI was consulted. He was advised need for NGT for temporary nutrition and consider NGT/PEG if DPOA approves. He has failure to thrive secondary to facial cancer likely basal cell carcinoma and had poor compliance and refused to meet with oncologist in the past. Wound culture showed growth of MRSA, diphtheroids, and ESBL Proteus mirabilis. He was given IV vancomycin for MRSA and ertapenem for Proteus ESBL. The patient was disorganized and was agitated. He was diagnosed with schizophrenia and was given Zyprexa and Thorazine p.r.n. He was also given Prolixin IM. He was discharged back to snf. He was recommended hospice evaluation to continue nine more days of antibiotic at snf. Hospice to evaluate if antibiotics needs to be continued. FINAL DIAGNOSES: 1. Cellulitis and abscess of the face. 2. Basal cell carcinoma. 3. Failure to thrive. 4. Urinary tract infection. 5. Anemia due to underlying chronic disease. 6. Coagulopathy secondary to liver disease. 7. Schizophrenia. 8. Agitation. 9. Right facial wound with superinfected necrotic tumor/mass, present on admission. DISPOSITION: The patient was discharged to [facility]. DISCHARGE MEDICATIONS: Refer to medication list. DISCHARGE INSTRUCTIONS: Hospice evaluation to follow at ED to determine need/appropriateness to continue antibiotic. Julio Higgins D.O. I have been assigned to dictate discharge summary on this account and I was not involved in the patient's management. Alysia Cannon N.P. DR: Chandrakant JOB#: [id number] CC: TANESHA
== END 2017-06-29 18:33 | DRG 383 ==
LOC: EDBD 16:01 → EMR 16:35 → 4E 18:30 → EDBEDREQ 18:39 → 4E 21:31
DX: L03.211 Cellulitis of face (principal); E43 Unspecified severe protein-calorie malnutrition; D68.4 Acquired coagulation factor deficiency; I10 Essential (primary) hypertension; C44.319 Basal cell carcinoma of skin of other parts of face; L02.01 Cutaneous abscess of face; N39.0 Urinary tract infection, site not specified; E86.0 Dehydration; R62.7 Adult failure to thrive; J44.9 Chronic obstructive pulmonary disease, unspecified; Z90.01 Acquired absence of eye; D63.8 Anemia in other chronic diseases classified elsewhere; R45.1 Restlessness and agitation; B95.62 Methicillin resistant Staphylococcus aureus infection as the cause of diseases classified elsewhere; B96.4 Proteus (mirabilis) (morganii) as the cause of diseases classified elsewhere; Z16.12 Extended spectrum beta lactamase (ESBL) resistance; B96.89 Other specified bacterial agents as the cause of diseases classified elsewhere; Z88.0 Allergy status to penicillin; Z88.8 Allergy status to other drugs, medicaments and biological substances; F20.81 Schizophreniform disorder; R22.9 Localized swelling, mass and lump, unspecified; Z85.840 Personal history of malignant neoplasm of eye
CPT/HCPCS: 36415; 70470; 70481; 71045; 80048; 80053; 80202; 81003; 82550; 82553; 83605; 84484; 85007; 85025; 85610; 85730; 87040; 87070; 87081; 87086; 87181; 87205; 93005; 97803; 99285; J8499

== ENCOUNTER 2018-04-13 17:11 | Inpatient (IN) | payer MEDICAID ==
[~2018-04-13] VITALS: Ht 177.8 cm; Wt 73.6 kg
[~2018-04-13 17:11] MED LIST changes: +ACETAMINOPHEN325 M1 ORAL; +ASPIRIN81 MG ORAL; +BACTRIM DS TAB1 EAC1 ORAL; +INVANZ1 GM IVPB; +LEVAQUIN750 MG ORAL; +LEXAPRO10 MG ORAL; +NORCO 5-325 TA1 EAC1 ORAL; +PANTOPRAZOLE SO40 MG ORAL; +PROBIOTIC1 EAC5 PO; +SEROQUEL200 MG ORAL; +TEMAZEPAM15 MG ORAL; +VALPROIC A250 MG/51 PO; +VANCOMYCIN1 GM/2502 IVPB; +VITAMIN C500 M1 ORAL; +ZYPREXA5 MG ORAL
[2018-04-13] MEDS ORDERED: FUROSEMIDE20 M1 ORAL (17:21)
--- NOTE | 2018-04-13 17:21 | NUR ---
ED Nurse Note: Pt is here from [place] due to refusing his medications x 4 days. Pt is constantly talking aloud and raambling slurred speech. As per EMS, this is his baseline. Hx of HTN, GERD, COPD, Dysphyagia.
[2018-04-13 17:22] VITALS: BP 165/84
--- NOTE | 2018-04-13 17:56 | NUR ---
ED Nurse Note: Pt sleeping comfortably in bed.
--- NOTE | 2018-04-13 20:20 | NUR ---
ED Nurse Note: Imaging at bedside. Patient combative. will attempt at a later time.
[2018-04-13] MEDS ORDERED: DiphenhydrAMINE 50mg/ml Inj IM ONE (20:30)
[2018-04-13] MEDS ORDERED: LORazepam Inj 2mg/ml 1ml IM ONE (20:30)
--- NOTE | 2018-04-13 20:46 | Emergency Room Report ---
History of Present Illness General Chief Complaint: General Complaint Source: Medical Record, EMS (Yumiko Leon) Present Illness HPI 57-year-old male presents to the emergency department brought by ambulance for refusal to take medications and refusal to eat x 3 days. Patient has a history of blindness, malignant neoplasm of the right eye, COPD, dysphasia, schizophrenia, depression and is being legally blind. Patient himself is a poor historian and refuses to provide answers to ROS and history of present illness questions. Patient has report cooperation and also gets agitated easily. He does not want to talk about why he is refusing to eat. HPI and ROS are limited due to poor pt. cooperation. Pt. supposed to be taking compazine for schizophrenia. Most information came from packet which pt. presented to the ED with from [facility] (Yumiko Leon) Allergies: Coded Allergies: BENZTROPINE (Unverified Allergy, Unknown, 02/22/14) HALOPERIDOL (Unverified Allergy, Unknown, 02/22/14) PENICILLINS (Unverified Allergy, Unknown, 02/22/14) Patient History Past Medical History: see triage record Past Surgical History: other - resection of carcinoma from right side of face/ eye Pertinent Family History: unable to obtain Reviewed Nursing Documentation: PMH: Agreed; PSxH: Agreed (Yumiko Leon) Nursing Documentation-PMH Hx Cardiac Problems: Yes Hx Hypertension: Yes Hx Pacemaker: No Hx Asthma: No Hx COPD: Yes Hx Diabetes: No Hx Gastrointestinal Problems: Yes Hx Dialysis: No Hx Neurological Problems: No Hx Cerebrovascular Accident: No Hx Seizures: No Hx Memory Loss: Yes - confusion (Yumiko Leon) Review of Systems All Other Systems: limited - Poor Pt. cooperation (Yumiko Leon) Physical Exam Vital Signs Date Time Temp Pulse Resp B/P (MAP) Pulse Ox O2 Delivery O2 Flow Rate FiO2 04/13/18 17:11 97.3 113 165/84 95 Room Air 04/13/18 17:22 24 98 Sp02 EP Interpretation: reviewed, normal General Appearance: alert, GCS 15, non-toxic, moderate distress - agitated Head: normocephalic, atraumatic Eyes: right eye abnormal pupil - right eye has patch which covers the right temporal area of face as well from cancer ressection. ; left eye other - visible cataract, glassy/hazy appearance ENT: hearing grossly normal, other Neck: full range of motion Respiratory: chest non-tender, lungs clear, normal breath sounds, speaking full sentences Cardiovascular #1: no edema, tachycardia Gastrointestinal: normal bowel sounds, non tender, soft Musculoskeletal: back normal, non-tender, other - bilateral hand contractures Neurologic: alert, responsive, motor strength/tone normal, sensory intact, other, grossly normal Psychiatric: judgement/insight normal Skin: normal color, no rash, warm/dry (Yumiko Leon) Medical Decision Making PA Attestation Dr. Morgan is my supervising Physician whom patient management has been discussed with. (Yumiko Leon) Diagnostic Impression: Primary Impression: Failure to thrive in adult Additional Impression: Schizophreniform psychosis ER Course 57-year-old male presents to the emergency department brought by ambulance for refusal to take medications and refusal to eat x 3 days. Patient has a history of blindness, malignant neoplasm of the right eye, COPD, dysphasia, schizophrenia, depression and is being legally blind. Patient himself is a poor historian and refuses to provide answers to ROS and history of present illness questions. Patient has report cooperation and also gets agitated easily. He does not want to talk about why he is refusing to eat. HPI and ROS are limited due to poor pt. cooperation. Pt. supposed to be taking compazine for schizophrenia. Most information came from packet which pt. presented to the ED with from [facility] Ddx considered but are not limited to failure to thrive, behavioral issue, AMS, hypoglycemia, UTI just to name a few. Vital signs: are WNL, pt. is afebrile H&PE are most consistent with ORDERS: -CBC: pending -CMP: pending -UA: pending -Troponin:pending -Blood Cultures : Pending -CXR: pt. refuses -EKG: pt. refuses ED INTERVENTIONS: -Ativan 2mg IM - Benadryl 50mg IM. -Zyprexa PO DISPOSITION: at this time pt. will be admitted to Dr. Higgins for Failure to thrive. Dr. Malaika contreras agreed to admit the pt. and to continue pt. care management. (Yumiko Leon) ER Course This patient was signed out to me. He was sent in from assisted for agitation and refusing meds. He is being admitted for failure to thrive and psychiatric evaluation. Labs unremarkable except for elevated white count. No evidence of infection. Patient has not given a urine sample. He is otherwise stable for [facility]. I contacted Dr. Duarte for admission. (Francisco Saavedra MD) Last Vital Signs Date Time Temp Pulse Resp B/P (MAP) Pulse Ox O2 Delivery O2 Flow Rate FiO2 04/13/18 17:22 113 24 Room Air 98 04/13/18 17:22 97.3 165/84 95 (Yumiko Leon) Disposition: ADMITTED INPATIENT Condition: Serious Physician Consult: Dr. Davis contacted by Dr. Morgan (Yumiko Leon) Referrals: Julio Higgins DO (PCP) Yumiko Leon Apr 13, 2018 20:46 Francisco Saavedra MD Apr 14, 2018 00:27
--- NOTE | 2018-04-13 21:00 | NUR ---
ED Nurse Note: Attempted to establish IV access. Patient refused. no blood collected. fozia amezquita at a later time.
[2018-04-13] MEDS ORDERED: ZyPREXA Zydis 10mg tab ORAL ONE (22:30)
[2018-04-13 23:38] LABS: EOSINOPHILS % (AUTO) 0.9 % (0.0-3.0); HEMOGLOBIN 13.1 G/DL (14.2-18.0); LYMPHOCYTES % (AUTO) 44.4 % (20.0-45.0); MEAN CORPUSCULAR VOLUME 89 FL (80-99); MONOCYTES % (AUTO) 3.6 % (1.0-10.0); NEUTROPHILS % (AUTO) 50.1 % (45.0-75.0); PLATELET COUNT 377 K/UL (150-450); RED BLOOD COUNT 4.39 M/UL (4.70-6.10); RED CELL DISTRIBUTION WIDTH 13.9 % (11.6-14.8); WHITE BLOOD COUNT 16.6 K/UL (4.8-10.8)
--- NOTE | 2018-04-13 23:46 | NUR ---
ED Nurse Note: report given to ANISH mccormick. Patient to be admitted to [address] [place] [address] under MD Morena.
[2018-04-13 23:51] LABS: ANION GAP 14 mmol/L (5-15); BLOOD UREA NITROGEN 28 mg/dL (7-18); CALCIUM 9.7 MG/DL (8.5-10.1); CARBON DIOXIDE 26 MMOL/L (21-32); CHLORIDE 106 MMOL/L (98-107); CREATININE 1.4 MG/DL (0.55-1.30); POTASSIUM 3.5 MMOL/L (3.5-5.1); SODIUM 146 MMOL/L (136-145)
[2018-04-13 23:56] LABS: ALANINE AMINOTRANSFERASE 16 U/L (12-78); ALBUMIN/GLOBULIN RATIO 1.1 (1.0-2.7); ALKALINE PHOSPHATASE 87 U/L (46-116); ASPARTATE AMINO TRANSFERASE 17 U/L (15-37); BILIRUBIN,TOTAL 0.8 MG/DL (0.2-1.0); CREATINE KINASE 62 U/L (26-308)
[2018-04-14] VITALS: BP 140/76
--- NOTE | 2018-04-14 00:05 | NUR ---
EKG was unobtainable at this time due to pt being combative.
--- NOTE | 2018-04-14 00:30 | NUR ---
TRANSFER TO FLOOR: Patient transferred to [place] [id number] as ordered per MD Morena. Report given to ANISH Whitmore. Belongings given receiving RN. PT NAD. TAYLOR.
--- NOTE | 2018-04-14 03:23 | NUR ---
NURSE NOTES: Admitted a 57 year old male, alert and oriented to name, agitated, confused and combative. No complaints of pain. With IV access on the left AC g. 20. With open wound on right eye, swab done and sent to the lab. Dressing changed. Patient refused VRE swab. Cleaned patient, staff was able to change patient clothes soak of urine with patient's gown.. For urine collection, Elsy OCONNELL aware. Dr. Daly made aware of pt's admission orders and carried out. MD will see patient and will have further orders later. Belongings checked. Call light and needs in reach. Bed in lowest position, lock engaged and alarm on.
--- NOTE | 2018-04-14 03:30 | NUR ---
HAND-OFF: Report given to ANISH Chin.
--- NOTE | 2018-04-14 03:45 | NUR ---
NURSE NOTES: Received patient in bed, asleep. No SOB, no acute distress noted. Dressing intact on R eye. 20G saline lock intact and patent on LAC. Bed in lowest position, locked, alarms on. Call light in reach.
[2018-04-14 04:00] VITALS: BP 147/76
[2018-04-14 07:20] LABS: ALANINE AMINOTRANSFERASE 18 U/L (12-78); ALBUMIN 3.8 G/DL (3.4-5.0); ALBUMIN/GLOBULIN RATIO 1.1 (1.0-2.7); ALKALINE PHOSPHATASE 80 U/L (46-116); ANION GAP 16 mmol/L (5-15); ASPARTATE AMINO TRANSFERASE 16 U/L (15-37); BILIRUBIN,TOTAL 0.9 MG/DL (0.2-1.0); BLOOD UREA NITROGEN 28 mg/dL (7-18); CALCIUM 10.1 MG/DL (8.5-10.1); CARBON DIOXIDE 24 MMOL/L (21-32); CHLORIDE 109 MMOL/L (98-107); CREATININE 1.3 MG/DL (0.55-1.30); POTASSIUM 3.6 MMOL/L (3.5-5.1); SODIUM 149 MMOL/L (136-145)
[2018-04-14 07:24] LABS: HEMATOCRIT 38.2 % (42.0-52.0); HEMOGLOBIN 12.9 G/DL (14.2-18.0); MEAN CORPUSCULAR VOLUME 90 FL (80-99); PLATELET COUNT 374 K/UL (150-450); RED BLOOD COUNT 4.26 M/UL (4.70-6.10); RED CELL DISTRIBUTION WIDTH 14.1 % (11.6-14.8)
--- NOTE | 2018-04-14 07:25 | NUR ---
nurse notes received report from NOC shift, patient resting comfortably in bed, no sign of distress, on fall precaution observed and maintained, kept clean dry and intact, needs met and anticipated will call MD for orders zackery torres
--- NOTE | 2018-04-14 07:31 | NUR ---
HAND-OFF: Report given to ANISH Schneider.
--- NOTE | 2018-04-14 07:58 | NUR ---
nurse notes report given to Bette OCONNELL for continuity of care zackery torres
[2018-04-14 08:00] VITALS: BP 106/52
--- NOTE | 2018-04-14 08:00 | NUR ---
NURSE NOTES: Received endorsement from [facility] to follow up with WBC of 23.0 and sodium 149. Patient is awake, unable to assess if patient is alert and oriented. Patient talks to himself and refused to eat @ this time. IV intact, no s/s of infiltration. Call light within reach, bed is in lowest position and locked. Dressing on the left eye intact. Will continue plan of care.
[2018-04-14] MEDS: Pantoprazole Inj IVP SCH (09:00)
[2018-04-14] MEDS: Ascorbic Acid 500mg tab ORAL SCH (09:00)
[2018-04-14] MEDS: Zinc Sulfate 220mg cap ORAL SCH (09:00)
[2018-04-14] MEDS: Aspirin Baby 81mg ORAL SCH (09:00)
[2018-04-14] MEDS: Heparin 5000 units/ml inj SUBQ SCH ×2 (09:00→21:33)
--- NOTE | 2018-04-14 09:00 | NUR ---
NURSE NOTES: during round, patient's dressing is on the floor. Wound looks same and RN tried to cover wound with dressing and patient started verbally abusive with F word and scream,shouting and tried to hit nurse. will continue to monitor.
--- NOTE | 2018-04-14 09:56 | Consultation ---
History of Present Illness General Chief Complaint: General Complaint Present Illness HPI 57-year-old male presents to the emergency department brought by ambulance for med non compliance and agitation. The pt is agitated and refusing meds verbally abusive towards his nurse. not taking his meds. the pt is not eating. Allergies: Coded Allergies: BENZTROPINE (Unverified Allergy, Unknown, 02/22/14) HALOPERIDOL (Unverified Allergy, Unknown, 02/22/14) PENICILLINS (Unverified Allergy, Unknown, 02/22/14) Medication History Scheduled Amlodipine Besylate (Norvasc), 5 MG ORAL DAILY, (Reported) Ascorbic Acid* (Vitamin C*), 500 MG ORAL DAILY, (Reported) Aspirin* (Aspirin*), 81 MG ORAL DAILY, (Reported) Chlorpromazine (Chlorpromazine HCl), 50 MG PO Q6HR, (Reported) Clonazepam* (Klonopin*), 1 MG ORAL BID, (Reported) Ertapenem Sodium* (INVanz*), 1 GM IVPB Q24H, (Reported) Escitalopram Oxalate* (Lexapro*), 10 MG ORAL DAILY, (Reported) Furosemide* (Lasix*), 20 MG ORAL DAILY, (Reported) Levofloxacin* (Levaquin*), 750 MG ORAL DAILY, (Reported) Multivit With Calcium,Iron,Min (Therapeutic M), 1 EACH PO DAILY, (Reported) Olanzapine* (Zyprexa*), 5 MG ORAL BID, (Reported) Pantoprazole* (Pantoprazole*), 40 MG ORAL DAILY, (Reported) Quetiapine Fumarate* (Seroquel*), 200 MG ORAL TWICE A DAY, (Reported) Temazepam (Temazepam*), 15 MG ORAL BEDTIME, (Reported) Trimethoprim/Sulfamethoxazole 160/800* (Bactrim Ds Tablet*), 1 TAB ORAL TWICE A DAY, (Reported) Valproate Sodium (Valproic Acid), 250 MG PO Q8HR, (Reported) Vancomycin Hcl/D5w (Vancomycin-D5w 1 G/250 Ml), 1.25 GM IVPB Q12HR, (Reported) Scheduled PRN Acetaminophen* (Acetaminophen 325MG Tablet*), 650 MG ORAL Q4H PRN for Pain Scale (3-5), (Reported) Miscellaneous Medications Lactobacillus Combo No.11 (Probiotic), 1 EACH PO, (Reported) Patient History Limited by: medical condition History Provided By: Patient, Caregiver, PMD Healthcare decision maker Resuscitation status Advanced Directive on File Yes Past Medical/Surgical History Past Medical/Surgical History: (1) MRSA cellulitis (2) Mass (3) right periorbital mass (4) Generalized weakness (5) Cancer (6) Basal cell carcinoma (7) Cellulitis and abscess of face (8) Periorbital swelling (9) Dehydration (10) Severe malnutrition (11) Poor fluid intake (12) Schizophreniform psychosis (13) Failure to thrive in adult Review of Systems Psychiatric: Reports: prior hx, anxiety, hallucinations, other - delusional Physical Exam General Appearance: alert, confused - uncooperative with exam, agitated, cachetic Last 24 Hour Vital Signs Date Time Temp Pulse Resp B/P (MAP) Pulse Ox O2 Delivery O2 Flow Rate FiO2 04/14/18 08:00 97.3 102 21 106/52 (70) 95 04/14/18 04:00 98.1 99 18 147/76 (99) 95 04/14/18 01:47 Room Air 04/14/18 00:30 97.3 85 24 140/76 95 Room Air 98 04/14/18 00:00 97.3 85 24 140/76 95 Room Air 98 04/13/18 17:22 113 24 Room Air 98 04/13/18 17:22 97.3 85 24 165/84 95 Room Air 98 04/13/18 17:11 97.3 113 165/84 95 Room Air Laboratory Tests Test 04/13/18 23:00 04/14/18 06:40 White Blood Count 16.6 K/UL (4.8-10.8) H 23.0 K/UL (4.8-10.8) *H Red Blood Count 4.39 M/UL (4.70-6.10) L 4.26 M/UL (4.70-6.10) L Hemoglobin 13.1 G/DL (14.2-18.0) L 12.9 G/DL (14.2-18.0) L Hematocrit 39.0 % (42.0-52.0) L 38.2 % (42.0-52.0) L Mean Corpuscular Volume 89 FL (80-99) 90 FL (80-99) Mean Corpuscular Hemoglobin 29.9 PG (27.0-31.0) 30.2 PG (27.0-31.0) Mean Corpuscular Hemoglobin Concent 33.6 G/DL (32.0-36.0) 33.7 G/DL (32.0-36.0) Red Cell Distribution Width 13.9 % (11.6-14.8) 14.1 % (11.6-14.8) Platelet Count 377 K/UL (150-450) 374 K/UL (150-450) Mean Platelet Volume 6.1 FL (6.5-10.1) L 6.2 FL (6.5-10.1) L Neutrophils (%) (Auto) 50.1 % (45.0-75.0) % (45.0-75.0) Lymphocytes (%) (Auto) 44.4 % (20.0-45.0) % (20.0-45.0) Monocytes (%) (Auto) 3.6 % (1.0-10.0) % (1.0-10.0) Eosinophils (%) (Auto) 0.9 % (0.0-3.0) % (0.0-3.0) Basophils (%) (Auto) 1.0 % (0.0-2.0) % (0.0-2.0) Sodium Level 146 MMOL/L (136-145) H 149 MMOL/L (136-145) H Potassium Level 3.5 MMOL/L (3.5-5.1) 3.6 MMOL/L (3.5-5.1) Chloride Level 106 MMOL/L (98-107) 109 MMOL/L (98-107) H Carbon Dioxide Level 26 MMOL/L (21-32) 24 MMOL/L (21-32) Anion Gap 14 mmol/L (5-15) 16 mmol/L (5-15) H Blood Urea Nitrogen 28 mg/dL (7-18) H 28 mg/dL (7-18) H Creatinine 1.4 MG/DL (0.55-1.30) H 1.3 MG/DL (0.55-1.30) Estimat Glomerular Filtration Rate 52.2 mL/min (>60) 56.9 mL/min (>60) Glucose Level 79 MG/DL (74-106) 78 MG/DL (74-106) Calcium Level 9.7 MG/DL (8.5-10.1) 10.1 MG/DL (8.5-10.1) Total Bilirubin 0.8 MG/DL (0.2-1.0) 0.9 MG/DL (0.2-1.0) Aspartate Amino Transf (AST/SGOT) 17 U/L (15-37) 16 U/L (15-37) Alanine Aminotransferase (ALT/SGPT) 16 U/L (12-78) 18 U/L (12-78) Alkaline Phosphatase 87 U/L (46-116) 80 U/L (46-116) Total Creatine Kinase 62 U/L (26-308) Troponin I 0.000 ng/mL (0.000-0.056) Total Protein 7.6 G/DL (6.4-8.2) 7.3 G/DL (6.4-8.2) Albumin 4.0 G/DL (3.4-5.0) 3.8 G/DL (3.4-5.0) Globulin 3.6 g/dL 3.5 g/dL Albumin/Globulin Ratio 1.1 (1.0-2.7) 1.1 (1.0-2.7) Neutrophils % (Manual) Pending Lymphocytes % (Manual) Pending Platelet Estimate Pending Platelet Morphology Pending Height (Feet): 5 Height (Inches): 10.00 Weight (Pounds): 157 Medications Current Medications Medications (Trade) Dose Ordered Sig/Jordi Route PRN Reason Start Time Stop Time Status Last Admin Dose Admin Amlodipine Besylate (Norvasc) 5 mg DAILY ORAL 04/14/18 09:00 05/14/18 08:59 Ascorbic Acid (Vitamin C) 500 mg DAILY ORAL 04/14/18 09:00 05/14/18 08:59 Aspirin (ASA) 81 mg DAILY ORAL 04/14/18 09:00 05/14/18 08:59 Heparin Sodium (Porcine) (Heparin 5000 units/ml) 5,000 units EVERY 12 HOURS SUBQ 04/14/18 09:00 05/14/18 08:59 Multivitamins (Multivitamins) 1 tab DAILY ORAL 04/14/18 09:00 05/14/18 08:59 Non-Formulary Medication (Non-Formulary Med) 1 ea DAILY ORAL 04/14/18 09:00 05/14/18 08:59 UNV Pantoprazole (Protonix) 40 mg DAILY IVP 04/14/18 09:00 05/14/18 08:59 Potassium Chloride (K-Dur) 10 meq DAILY ORAL 04/14/18 09:00 05/14/18 08:59 Zinc Sulfate (Zinc Sulfate) 220 mg DAILY ORAL 04/14/18 09:00 05/14/18 08:59 Assessment/Plan Problem List: (1) Schizophrenia ICD Codes: F20.9 - Schizophrenia, unspecified SNOMED: 76028399 (2) Failure to thrive in adult ICD Codes: R62.7 - Adult failure to thrive SNOMED: 616099880 Assessment/Plan dc zyprexa seroquel 100mg tid haldol IM ativan Im Recommend hospice placement. Nathaniel Davis MD Apr 14, 2018 09:56
[2018-04-14] MEDS ORDERED: Haloperidol 5mg/ml Inj IM PRN (10:00)
--- NOTE | 2018-04-14 10:15 | NUR ---
NURSE NOTES: Dr. Spring is aware of elevated WBC of 23.0 patient is afebrile.IV aTB to start @ 12:00pm.
--- NOTE | 2018-04-14 10:19 | Consultation ---
History of Present Illness General Date patient seen: Apr 14, 2018 Chief Complaint: General Complaint Present Illness HPI 57 y/o M with hx of resection of carcinoma from right side of face/eye, COPD, dysphasia, schizophrenia, HTN, MDD, legally blind presents to ED on 04/13 with FTT, refusal to take meds and food Patient was admitted here on June 2017 for superinfected necotric Face mass w MRSA and ESBL, s/p Rx Allergies: Coded Allergies: BENZTROPINE (Unverified Allergy, Unknown, 02/22/14) HALOPERIDOL (Unverified Allergy, Unknown, 02/22/14) PENICILLINS (Unverified Allergy, Unknown, 04/14/18) tolerated Ceftriaxone 06/2017 Medication History Scheduled Amlodipine Besylate (Norvasc), 5 MG ORAL DAILY, (Reported) Ascorbic Acid* (Vitamin C*), 500 MG ORAL DAILY, (Reported) Aspirin* (Aspirin*), 81 MG ORAL DAILY, (Reported) Chlorpromazine (Chlorpromazine HCl), 50 MG PO Q6HR, (Reported) Clonazepam* (Klonopin*), 1 MG ORAL BID, (Reported) Ertapenem Sodium* (INVanz*), 1 GM IVPB Q24H, (Reported) Escitalopram Oxalate* (Lexapro*), 10 MG ORAL DAILY, (Reported) Furosemide* (Lasix*), 20 MG ORAL DAILY, (Reported) Levofloxacin* (Levaquin*), 750 MG ORAL DAILY, (Reported) Multivit With Calcium,Iron,Min (Therapeutic M), 1 EACH PO DAILY, (Reported) Olanzapine* (Zyprexa*), 5 MG ORAL BID, (Reported) Pantoprazole* (Pantoprazole*), 40 MG ORAL DAILY, (Reported) Quetiapine Fumarate* (Seroquel*), 200 MG ORAL TWICE A DAY, (Reported) Temazepam (Temazepam*), 15 MG ORAL BEDTIME, (Reported) Trimethoprim/Sulfamethoxazole 160/800* (Bactrim Ds Tablet*), 1 TAB ORAL TWICE A DAY, (Reported) Valproate Sodium (Valproic Acid), 250 MG PO Q8HR, (Reported) Vancomycin Hcl/D5w (Vancomycin-D5w 1 G/250 Ml), 1.25 GM IVPB Q12HR, (Reported) Scheduled PRN Acetaminophen* (Acetaminophen 325MG Tablet*), 650 MG ORAL Q4H PRN for Pain Scale (3-5), (Reported) Miscellaneous Medications Lactobacillus Combo No.11 (Probiotic), 1 EACH PO, (Reported) Patient History Healthcare decision maker Resuscitation status Advanced Directive on File Yes Patient History Narrative Pmhx: as above Shx: reviewed Fhx: non contributory Review of Systems All Other Systems: negative except mentioned in HPI Physical Exam Physical Exam Narrative General Appearance: alert, agitated Head: normocephalic, atraumatic Eyes: right eye abnormal pupil - right eye has patch which covers the right temporal area of face as well from cancer ressection. ; left eye other - visible cataract, glassy/hazy appearance ENT: hearing grossly normal, other Neck: full range of motion Respiratory: chest non-tender, lungs clear, normal breath sounds, speaking full sentences Cardiovascular no edema, tachycardia Gastrointestinal: normal bowel sounds, non tender, soft Musculoskeletal: back normal, non-tender, other - bilateral hand contractures Skin: normal color, no rash, warm/dry Last 24 Hour Vital Signs Date Time Temp Pulse Resp B/P (MAP) Pulse Ox O2 Delivery O2 Flow Rate FiO2 04/14/18 08:00 97.3 102 21 106/52 (70) 95 04/14/18 04:00 98.1 99 18 147/76 (99) 95 04/14/18 01:47 Room Air 04/14/18 00:30 97.3 85 24 140/76 95 Room Air 98 04/14/18 00:00 97.3 85 24 140/76 95 Room Air 98 04/13/18 17:22 113 24 Room Air 98 04/13/18 17:22 97.3 85 24 165/84 95 Room Air 98 04/13/18 17:11 97.3 113 165/84 95 Room Air Laboratory Tests Test 04/13/18 23:00 04/14/18 06:40 White Blood Count 16.6 K/UL (4.8-10.8) H 23.0 K/UL (4.8-10.8) *H Red Blood Count 4.39 M/UL (4.70-6.10) L 4.26 M/UL (4.70-6.10) L Hemoglobin 13.1 G/DL (14.2-18.0) L 12.9 G/DL (14.2-18.0) L Hematocrit 39.0 % (42.0-52.0) L 38.2 % (42.0-52.0) L Mean Corpuscular Volume 89 FL (80-99) 90 FL (80-99) Mean Corpuscular Hemoglobin 29.9 PG (27.0-31.0) 30.2 PG (27.0-31.0) Mean Corpuscular Hemoglobin Concent 33.6 G/DL (32.0-36.0) 33.7 G/DL (32.0-36.0) Red Cell Distribution Width 13.9 % (11.6-14.8) 14.1 % (11.6-14.8) Platelet Count 377 K/UL (150-450) 374 K/UL (150-450) Mean Platelet Volume 6.1 FL (6.5-10.1) L 6.2 FL (6.5-10.1) L Neutrophils (%) (Auto) 50.1 % (45.0-75.0) % (45.0-75.0) Lymphocytes (%) (Auto) 44.4 % (20.0-45.0) % (20.0-45.0) Monocytes (%) (Auto) 3.6 % (1.0-10.0) % (1.0-10.0) Eosinophils (%) (Auto) 0.9 % (0.0-3.0) % (0.0-3.0) Basophils (%) (Auto) 1.0 % (0.0-2.0) % (0.0-2.0) Sodium Level 146 MMOL/L (136-145) H 149 MMOL/L (136-145) H Potassium Level 3.5 MMOL/L (3.5-5.1) 3.6 MMOL/L (3.5-5.1) Chloride Level 106 MMOL/L (98-107) 109 MMOL/L (98-107) H Carbon Dioxide Level 26 MMOL/L (21-32) 24 MMOL/L (21-32) Anion Gap 14 mmol/L (5-15) 16 mmol/L (5-15) H Blood Urea Nitrogen 28 mg/dL (7-18) H 28 mg/dL (7-18) H Creatinine 1.4 MG/DL (0.55-1.30) H 1.3 MG/DL (0.55-1.30) Estimat Glomerular Filtration Rate 52.2 mL/min (>60) 56.9 mL/min (>60) Glucose Level 79 MG/DL (74-106) 78 MG/DL (74-106) Calcium Level 9.7 MG/DL (8.5-10.1) 10.1 MG/DL (8.5-10.1) Total Bilirubin 0.8 MG/DL (0.2-1.0) 0.9 MG/DL (0.2-1.0) Aspartate Amino Transf (AST/SGOT) 17 U/L (15-37) 16 U/L (15-37) Alanine Aminotransferase (ALT/SGPT) 16 U/L (12-78) 18 U/L (12-78) Alkaline Phosphatase 87 U/L (46-116) 80 U/L (46-116) Total Creatine Kinase 62 U/L (26-308) Troponin I 0.000 ng/mL (0.000-0.056) Total Protein 7.6 G/DL (6.4-8.2) 7.3 G/DL (6.4-8.2) Albumin 4.0 G/DL (3.4-5.0) 3.8 G/DL (3.4-5.0) Globulin 3.6 g/dL 3.5 g/dL Albumin/Globulin Ratio 1.1 (1.0-2.7) 1.1 (1.0-2.7) Neutrophils % (Manual) Pending Lymphocytes % (Manual) Pending Platelet Estimate Pending Platelet Morphology Pending Height (Feet): 5 Height (Inches): 10.00 Weight (Pounds): 157 Medications Current Medications Medications (Trade) Dose Ordered Sig/Jordi Route PRN Reason Start Time Stop Time Status Last Admin Dose Admin Amlodipine Besylate (Norvasc) 5 mg DAILY ORAL 04/14/18 09:00 05/14/18 08:59 Ascorbic Acid (Vitamin C) 500 mg DAILY ORAL 04/14/18 09:00 05/14/18 08:59 Aspirin (ASA) 81 mg DAILY ORAL 04/14/18 09:00 05/14/18 08:59 Heparin Sodium (Porcine) (Heparin 5000 units/ml) 5,000 units EVERY 12 HOURS SUBQ 04/14/18 09:00 05/14/18 08:59 Multivitamins (Multivitamins) 1 tab DAILY ORAL 04/14/18 09:00 05/14/18 08:59 Non-Formulary Medication (Non-Formulary Med) 1 ea DAILY ORAL 04/14/18 09:00 05/14/18 08:59 UNV Pantoprazole (Protonix) 40 mg DAILY IVP 04/14/18 09:00 05/14/18 08:59 Potassium Chloride (K-Dur) 10 meq DAILY ORAL 04/14/18 09:00 05/14/18 08:59 Zinc Sulfate (Zinc Sulfate) 220 mg DAILY ORAL 04/14/18 09:00 05/14/18 08:59 Assessment/Plan Assessment/Plan Abx: None Assessment: Sepsis- ?source- r/o UTI, PNA Afebrile Leukocytosis, increased resection of carcinoma from right side of face/eye -hx of superinfected necrotic mass and possible micro abscess s/p Tx 06/2017 -wound cx MRSA, diphterouids, ESBL Proteus COPD dysphasia schizophrenia HTN MDD legally blind hx of VRE/MRSA colonization Plan: -Start empiric Ceftriaxone pending cultures, CXR, u/a -f/u cx -Monitor CBC/CMP, temperatures Thank you for this consultation. Will continue to follow along with you. Discussed with Carmella Key M.D. Apr 14, 2018 10:19
--- NOTE | 2018-04-14 11:00 | NUR ---
NURSE NOTES: Unable to do chest x-ray per radiology due to patient was combative. RN spoke with Dr. Daly with no new order. Dr. Daly said " Do not d/c it. Tried to do it when patient is compliant." RN also relayed to Dr. Nicole kaiser that [facility] pharmacy does not carry medicine for skin cancer with no new order.
[2018-04-14 12:00] VITALS: BP 121/84
[2018-04-14] MEDS ORDERED: cefTRIAXone 1 GM in D5W 55 ML IVPB SCH (12:00)
[2018-04-14] MEDS: LORazepam Inj 2mg/ml 1ml IM PRN (12:23)
--- NOTE | 2018-04-14 12:32 | NUR ---
NURSE NOTES: Patient refused to eat and dressing to be applied. Patient is agitated and combative and tried to hit nurse when trying to hang antibiotic. RN tried to explain that patient's WBC is elevated but patient did not listen to RN and started cursing with F word. Given Ativan IM as ordered by Dr. Davis with help of two other nurses on left deltoid without any difficulties, no bleeding. Able to start IV antibiotic and radiology to call once patient is calm.Patient's V/S stable. Will continue to monitor.
--- NOTE | 2018-04-14 12:40 | GI Initial Consult Note ---
History of Present Illness General Date patient seen: Apr 14, 2018 Reason for Hospitalization: General Complaint Referring physician: DAVID PAGE Reason for Consultation: Failure to thrive Present Illness HPI 57-year-old male presents to the emergency department brought by ambulance for refusal to take medications and refusal to eat x 3 days. Patient has a history of blindness, malignant neoplasm of the right eye, COPD, dysphasia, schizophrenia, depression and is being legally blind. Patient himself is a poor historian and refuses to provide answers to ROS and history of present illness questions. Patient has report cooperation and also gets agitated easily. He does not want to talk about why he is refusing to eat. HPI and ROS are limited due to poor pt. cooperation. Pt. supposed to be taking compazine for schizophrenia. Most information came from packet which pt. presented to the ED with from [facility]. GI consulted for failure to thrive. ROS limited, patient seen awake alert no apparent distress. Unable to obtain any information from the patient; displays episodes of agitation, incoherent rambling and confusion. Labs reviewed; patient presents with leukocytosis white count 23,000, normocytic anemia and hyponatremia. No history of endoscopic or colonoscopy at this time. It is noted that the patient is legally blind. Home Meds Reported Medications Furosemide* (LASIX*) 20 Mg Tablet, 20 MG ORAL DAILY, TAB 04/13/18 Chlorpromazine (Chlorpromazine HCl) 25 Mg Tablet, 50 MG PO Q6HR for Agitation, TAB 06/29/17 Olanzapine* (ZYPREXA*) 5 Mg Tablet, 5 MG ORAL BID, TAB 06/29/17 Valproate Sodium (VALPROIC ACID) 250 Mg/5 Ml Solution, 250 MG PO Q8HR 06/29/17 Ertapenem Sodium* (INVanz*) 1 Gm Vial.port, 1 GM IVPB Q24H for 12 Days, VIAL 12 more days 06/29/17 Vancomycin Hcl/D5w (VANCOMYCIN-D5W 1 G/250 ML) 1 Gm/250 Ml Plast..bag, 1.25 GM IVPB Q12HR for 9 Days, BAG 9 more days 06/29/17 Ascorbic Acid* (VITAMIN C*) 500 Mg Tablet, 500 MG ORAL DAILY, #30 TAB 0 Refills 06/24/17 Escitalopram Oxalate* (LEXAPRO*) 10 Mg Tablet, 10 MG ORAL DAILY, TAB 06/24/17 Lactobacillus Combo No.11 (PROBIOTIC) 1 Each Cap.sprink, 1 EACH PO, CAP 06/24/17 Aspirin* (ASPIRIN*) 81 Mg Tab.chew, 81 MG ORAL DAILY, TAB 06/24/17 Pantoprazole* (PANTOPRAZOLE*) 40 Mg Tablet.dr, 40 MG ORAL DAILY, TAB 06/24/17 Acetaminophen* (ACETAMINOPHEN 325MG TABLET*) 325 Mg Tablet, 650 MG ORAL Q4H PRN for Pain Scale (3-5), TAB 06/24/17 Quetiapine Fumarate* (SEROQUEL*) 200 Mg Tablet, 200 MG ORAL TWICE A DAY, TAB 06/24/17 Trimethoprim/Sulfamethoxazole 160/800* (BACTRIM DS TABLET*) 1 Each Tablet, 1 TAB ORAL TWICE A DAY, TAB 06/24/17 Levofloxacin* (LEVAQUIN*) 750 Mg Tablet, 750 MG ORAL DAILY, TAB 06/24/17 Temazepam (TEMAZEPAM*) 15 Mg Capsule, 15 MG ORAL BEDTIME, #30 CAP 0 Refills 06/24/17 Amlodipine Besylate (Norvasc) 5 Mg Tab, 5 MG ORAL DAILY, TAB 08/11/15 Multivit With Calcium,Iron,Min (THERAPEUTIC M) 1 Each Tablet, 1 EACH PO DAILY, TAB 02/22/14 Clonazepam* (KLONOPIN*) 1 Mg Tablet, 1 MG ORAL BID, #15 TAB 0 Refills 02/22/14 Med list reviewed/reconciled: Yes Allergies: Coded Allergies: BENZTROPINE (Unverified Allergy, Unknown, 02/22/14) HALOPERIDOL (Unverified Allergy, Unknown, 02/22/14) PENICILLINS (Unverified Allergy, Unknown, 04/14/18) tolerated Ceftriaxone 06/2017 Patient History Limited by: medical condition History Provided By: Medical Record PMH Narrative Past Medical History: see triage record Past Surgical History: other - resection of carcinoma from right side of face/ eye Pertinent Family History: unable to obtain Reviewed Nursing Documentation: PMH: Agreed; PSxH: Agree Nursing Documentation-PM Hx Cardiac Problems: Yes Hx Hypertension: Yes Hx Pacemaker: No Hx Asthma: No Hx COPD: Yes Hx Diabetes: No Hx Gastrointestinal Problems: Yes Hx Dialysis: No Hx Neurological Problems: No Hx Cerebrovascular Accident: No Hx Seizures: No Hx Memory Loss: Yes - confusion Past Surgical History: none Pertinent Family History: none Social History Narrative Unable to obtain Review of Systems All Other Systems: limited Physical Exam Vital Signs Date Time Temp Pulse Resp B/P (MAP) Pulse Ox O2 Delivery O2 Flow Rate FiO2 04/13/18 17:11 97.3 113 165/84 95 Room Air 04/13/18 17:22 24 98 Sp02 EP Interpretation: reviewed, normal Labs Laboratory Tests Test 04/13/18 23:00 04/14/18 06:40 White Blood Count 16.6 K/UL (4.8-10.8) H 23.0 K/UL (4.8-10.8) *H Red Blood Count 4.39 M/UL (4.70-6.10) L 4.26 M/UL (4.70-6.10) L Hemoglobin 13.1 G/DL (14.2-18.0) L 12.9 G/DL (14.2-18.0) L Hematocrit 39.0 % (42.0-52.0) L 38.2 % (42.0-52.0) L Mean Corpuscular Volume 89 FL (80-99) 90 FL (80-99) Mean Corpuscular Hemoglobin 29.9 PG (27.0-31.0) 30.2 PG (27.0-31.0) Mean Corpuscular Hemoglobin Concent 33.6 G/DL (32.0-36.0) 33.7 G/DL (32.0-36.0) Red Cell Distribution Width 13.9 % (11.6-14.8) 14.1 % (11.6-14.8) Platelet Count 377 K/UL (150-450) 374 K/UL (150-450) Mean Platelet Volume 6.1 FL (6.5-10.1) L 6.2 FL (6.5-10.1) L Neutrophils (%) (Auto) 50.1 % (45.0-75.0) % (45.0-75.0) Lymphocytes (%) (Auto) 44.4 % (20.0-45.0) % (20.0-45.0) Monocytes (%) (Auto) 3.6 % (1.0-10.0) % (1.0-10.0) Eosinophils (%) (Auto) 0.9 % (0.0-3.0) % (0.0-3.0) Basophils (%) (Auto) 1.0 % (0.0-2.0) % (0.0-2.0) Sodium Level 146 MMOL/L (136-145) H 149 MMOL/L (136-145) H Potassium Level 3.5 MMOL/L (3.5-5.1) 3.6 MMOL/L (3.5-5.1) Chloride Level 106 MMOL/L (98-107) 109 MMOL/L (98-107) H Carbon Dioxide Level 26 MMOL/L (21-32) 24 MMOL/L (21-32) Anion Gap 14 mmol/L (5-15) 16 mmol/L (5-15) H Blood Urea Nitrogen 28 mg/dL (7-18) H 28 mg/dL (7-18) H Creatinine 1.4 MG/DL (0.55-1.30) H 1.3 MG/DL (0.55-1.30) Estimat Glomerular Filtration Rate 52.2 mL/min (>60) 56.9 mL/min (>60) Glucose Level 79 MG/DL (74-106) 78 MG/DL (74-106) Calcium Level 9.7 MG/DL (8.5-10.1) 10.1 MG/DL (8.5-10.1) Total Bilirubin 0.8 MG/DL (0.2-1.0) 0.9 MG/DL (0.2-1.0) Aspartate Amino Transf (AST/SGOT) 17 U/L (15-37) 16 U/L (15-37) Alanine Aminotransferase (ALT/SGPT) 16 U/L (12-78) 18 U/L (12-78) Alkaline Phosphatase 87 U/L (46-116) 80 U/L (46-116) Total Creatine Kinase 62 U/L (26-308) Troponin I 0.000 ng/mL (0.000-0.056) Total Protein 7.6 G/DL (6.4-8.2) 7.3 G/DL (6.4-8.2) Albumin 4.0 G/DL (3.4-5.0) 3.8 G/DL (3.4-5.0) Globulin 3.6 g/dL 3.5 g/dL Albumin/Globulin Ratio 1.1 (1.0-2.7) 1.1 (1.0-2.7) Differential Total Cells Counted 100 Neutrophils % (Manual) 66 % (45-75) Lymphocytes % (Manual) 34 % (20-45) Monocytes % (Manual) 0 % (1-10) L Eosinophils % (Manual) 0 % (0-3) Basophils % (Manual) 0 % (0-2) Band Neutrophils 0 % (0-8) Platelet Estimate Adequate Platelet Morphology Normal Red Blood Cell Morphology Normal General Appearance: no apparent distress, other - Confused, history of schizophrenia Head: normocephalic Neck: supple Respiratory: normal breath sounds, no respiratory distress Cardiovascular: normal rate Gastrointestinal: normal inspection, non tender, soft, normal bowel sounds, non -distended Rectal: deferred Genitourinary: deferred Musculoskeletal: normal inspection, back normal Neurologic: alert Psychiatric: other Skin: normal inspection, normal color, no rash, warm/dry, palpation normal, well hydrated Lymphatic: normal inspection, no adenopathy Current Medications Current Medications Medications (Trade) Dose Ordered Sig/Jordi Route PRN Reason Start Time Stop Time Status Last Admin Dose Admin Amlodipine Besylate (Norvasc) 5 mg DAILY ORAL 04/14/18 09:00 05/14/18 08:59 Ascorbic Acid (Vitamin C) 500 mg DAILY ORAL 04/14/18 09:00 05/14/18 08:59 Aspirin (ASA) 81 mg DAILY ORAL 04/14/18 09:00 05/14/18 08:59 Ceftriaxone Sodium 1 gm/ Dextrose 55 ml @ 110 mls/hr Q24H IVPB 04/14/18 12:00 04/21/18 11:59 04/14/18 12:23 Haloperidol Lactate (Haldol) 5 mg Q6H PRN IM Agitation 04/14/18 10:00 05/14/18 09:59 Heparin Sodium (Porcine) (Heparin 5000 units/ml) 5,000 units EVERY 12 HOURS SUBQ 04/14/18 09:00 05/14/18 08:59 Lorazepam (Ativan 2mg/ml 1ml) 2 mg Q4H PRN IM For Anxiety 04/14/18 10:00 04/21/18 09:59 04/14/18 12:23 Multivitamins (Multivitamins) 1 tab DAILY ORAL 04/14/18 09:00 05/14/18 08:59 Non-Formulary Medication (Non-Formulary Med) 1 ea DAILY ORAL 04/14/18 09:00 05/14/18 08:59 UNV Pantoprazole (Protonix) 40 mg DAILY IVP 04/14/18 09:00 05/14/18 08:59 Potassium Chloride (K-Dur) 10 meq DAILY ORAL 04/14/18 09:00 05/14/18 08:59 Quetiapine Fumarate (SEROquel) 100 mg EVERY 8 HOURS ORAL 04/14/18 10:00 05/14/18 09:59 Zinc Sulfate (Zinc Sulfate) 220 mg DAILY ORAL 04/14/18 09:00 05/14/18 08:59 GI: Plan Problems: (1) Dysphasia (2) Encounter for PEG (percutaneous endoscopic gastrostomy) (3) Schizophrenia (4) Failure to thrive in adult (5) Generalized weakness (6) Severe malnutrition (7) Dehydration Plan Will consider PEG pending workup. Speech therapist evaluation pending rule out dysphagia Calorie count in progress see if nutritional needs are met Patient on regular diet One-to-one feeder IV/p.o. hydration Antibiotics PPI Follow-up labs Discussed with Dr. Ferguson. Thank you for this patient referral, we will follow. The patient was seen and examined at bedside and all new and available data was reviewed in the patients chart. I agree with the above findings, impression and plan. (Patient seen earlier today. Signature stamp does not reflect patient encounter time.). - MD Keri [facility] Apr 14, 2018 12:40
--- NOTE | 2018-04-14 14:15 | NUR ---
NURSE NOTES: Patient refused seroquel and during round, noticed that IV was out. When Rn tried to insert a new IV,he makes his fist and waving his arm and cursed @ RN. Will continue to monitor.
--- NOTE | 2018-04-14 14:29 | NUR ---
NURSE NOTES: RN relayed Dr. Spring that patient pulled out the IV and refused another IV insertion with new order to d/c IV and start levaquin 500mg po Q48hr. RN relayed Dr. Spring that patient refused his food and medicine.
--- NOTE | 2018-04-14 14:29 | NUR ---
RD ASSESSMENT & RECOMMENDATIONS SEE CARE ACTIVITY FOR COMPLETE ASSESSMENT DAILY ESTIMATED NEEDS: Needs based on Wound/ 71kg 25-30 kcals/kg 2489-3725 total kcals 1.25-1.7 g protein/kg 88-120 g total protein 25-30 mL/kg 9715-8832 total fluid mLs NUTRITION DIAGNOSIS: * Increased kcal/pro intake needs R/T wound healing as evidenced by pt w/ open wound @ rt eye due to h/o resection of carcinoma. * Inadequate oral intake R/T psych issues? etiology unknown as evidenced by pt admitted w/ c/o refusing to eat w/ FTT dx. CURRENT DIET:REGULAR PO DIET RECOMMENDATIONS: Liberalized REGULAR diet/ texture per CUSTOMER SUPPORT ADVISOR + ENSURE TID ENTERAL NUTRITION RECOMMENDATIONS: CONSULT RD IF TF INDICATED ADDITIONAL RECOMMENDATIONS: * Calibrated bedscale wt * Will follow up w/ jameel count x 72 hrs * Wound healing: continue MVI x 1, Vit C 500mg QD : Add Crispin 1pkt BID * Consider PEG vs NGT feeding if pt receptive and part of POC : pt is combative and agitated * CUSTOMER SUPPORT ADVISOR eval for appropriate texture
[2018-04-14 16:00] VITALS: BP 121/72
--- NOTE | 2018-04-14 16:17 | NUR ---
NURSE NOTES: RN received a phone call from Tanner from pharmacy regading med Iva, per pharmacist, [facility] [place]. RN spoke to MD Daly and relayed with new order to d/c med.
--- NOTE | 2018-04-14 18:00 | NUR ---
NURSE NOTES: Unable to collect urine for urinalysis due to patient is combative and non-compliance.Will follow up and endorse.
--- NOTE | 2018-04-14 18:02 | NUR ---
CASE MANAGEMENT: REVIEW 57/M THERESAA FROM [facility] CC: REFUSAL TO EAT X 3 DAYS SI: FAILURE TO THRIVE T 97.3 HR 113 RR 24 BP 165/84 SAT 95% ROOM AIR WBC 16.6 NA 146 BUN 28 CR 1.4 IS: ATIVAN IM X1 BENADRYL IM X1 ZYPREXA PO X1 NS IVF X1 INTERQUAL CRITERIA MET: PATIENT ADMITTED TO MED/SURG UNIT 04/13/2018 DCP: PATIENT IS FROM [facility] CASE MANAGEMENT: REVIEW SI: FAILURE TO THRIVE T 97.3 HR 104 RR 22 BP 147/76 SAT 95% ROOM AIR WBC 23.0 NA 149 IS: LEVAQUIN PO QD K-DUR PO QD ASA PO QD NORVASC PO QD MED/SURG UNIT STATUS DCP: PATIENT IS FROM [facility]
--- NOTE | 2018-04-14 18:20 | NUR ---
NURSE NOTES: RN and FOUNTAIN VENDING MECHANIC able to do proper incontinent care. Skin intact, reposition done. Heels are floated to off the load. But patient refused to eat. MD aware of refusal of medicine,food and dressing on his right side of face. RN tried to explained the risks and benefits but patient is verbally abusive and yelling @ nurse " Leave me alone, go away." Will continue to monitor.
--- NOTE | 2018-04-14 19:26 | NUR ---
HAND-OFF: Report given to Norbert.
--- NOTE | 2018-04-14 19:35 | NUR ---
NURSE NOTES: Pt received awake, bed in lowest position and no complaints of pain at the moment and no signs of distress. Pt requesting to have water and juice and that he is thirsty. Will give him something to drink. call light within reach.
[2018-04-14 20:00] VITALS: BP 124/78
[2018-04-15] VITALS: BP 125/77
[2018-04-15 04:00] VITALS: BP 119/75
--- NOTE | 2018-04-15 07:16 | NUR ---
HAND-OFF: Report given to ANISH Lemons.
[2018-04-15 08:00] VITALS: BP 116/60
[2018-04-15] MEDS ORDERED: Levofloxacin 500mg tab ORAL SCH (09:00)
--- NOTE | 2018-04-15 09:15 | Diagnostic Imaging Report ---
EXAM: XR Chest, 1 View CLINICAL HISTORY: CP TECHNIQUE: Frontal view of the chest. COMPARISON: No relevant prior studies available. FINDINGS: Lungs: No consolidation. Pleural space: Unremarkable. No pneumothorax. Heart: Unremarkable. No cardiomegaly. Mediastinum: Prominent mediastinal contour. Bones/joints: No acute fracture. IMPRESSION: No acute cardiopulmonary disease.
[2018-04-15] MEDS ORDERED: NS 275ml ONE (09:26)
[2018-04-15] MEDS: LORazepam Inj 2mg/ml 1ml IM PRN ×2 (09:26→15:46)
[2018-04-15] MEDS ORDERED: Tubing IV Secondary IV ONE (09:26)
[2018-04-15] MEDS: Pantoprazole Inj IVP SCH (09:35)
[2018-04-15] MEDS: Aspirin Baby 81mg ORAL SCH (09:35)
[2018-04-15] MEDS: Ascorbic Acid 500mg tab ORAL SCH (09:35)
[2018-04-15] MEDS: Zinc Sulfate 220mg cap ORAL SCH (09:36)
[2018-04-15] MEDS: Heparin 5000 units/ml inj SUBQ SCH ×2 (09:37→21:00)
--- NOTE | 2018-04-15 09:48 | NUR ---
NURSE NOTES: PT IS AXOX2, OPENS EYES TO VOICE. PT UPSET BECAUSE RN CALLED HIM "JENNIFER". PREFERS TO BE CALLED "MR. HANCOCK". PT YELLS "HOW MANY TIMES DO I HAVE TO TELL YOU, YOU DUMB BITCH!". PT REFUSES TO TAKE MEDICATIONS. ASKS FOR COFFEE. PT REFUSED TO EAT BREAKFAST. ONLY DRANK MILK AND APPLE JUICE. IN NO APPARENT DISTRESS AT THIS TIME. RN ADMINISTERED ATIVAN 2MG IM ORDERED FOR AGITATION. BED IN LOWEST POSITION WITH BEDSIDE RAILS X3 RAISED. BED ALARM ON. CALL LIGHT WITHIN REACH.
--- NOTE | 2018-04-15 10:53 | Infectious Diseases Prog Note ---
Assessment/Plan Assessment/Plan Assessment: Sepsis- ?source- r/o UTI, PNA Afebrile Leukocytosis, increased ? 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 Wnd Cx : GPC -hx of superinfected necrotic mass and possible micro abscess s/p Tx 06/2017 -wound cx MRSA, diphterouids, ESBL Proteus FTT COPD dysphasia schizophrenia HTN MDD legally blind hx of VRE/MRSA colonization Plan: - on empiric Azactam , Flagyl and IV Vanco d# 1 and DC Ceftriaxone d# 2 - CXR, u/a -f/u cx -Monitor CBC/CMP, temperatures -CT of C/A/P Subjective Constitutional: Denies: no symptoms, fever, chills, fatigue, anorexia, drenching sweats, other Allergies: Coded Allergies: BENZTROPINE (Unverified Allergy, Unknown, 02/22/14) HALOPERIDOL (Unverified Allergy, Unknown, 02/22/14) PENICILLINS (Unverified Allergy, Unknown, 04/14/18) tolerated Ceftriaxone 06/2017 Subjective Poor historian Objective Vital Signs Last 24 Hour Vital Signs Date Time Temp Pulse Resp B/P (MAP) Pulse Ox O2 Delivery O2 Flow Rate FiO2 04/15/18 09:00 Room Air 04/15/18 08:00 99.5 102 20 116/60 (78) 96 04/15/18 04:00 98.8 105 18 119/75 (90) 98 04/15/18 00:00 98.8 104 19 125/77 (93) 98 04/14/18 21:00 Room Air 04/14/18 20:00 98.7 104 18 124/78 (93) 98 04/14/18 16:00 97.4 104 22 121/72 (88) 95 04/14/18 12:00 98.7 101 21 121/84 (96) 95 Height (Feet): 5 Height (Inches): 10.00 Weight (Pounds): 157 HEENT: atraumatic Respiratory/Chest: no respiratory distress Cardiovascular: regularly irregular Abdomen: no organomegaly Microbiology Date/Time Source Procedure Growth Status 04/13/18 23:15 Blood Blood Culture - Preliminary NO GROWTH AFTER 24 HOURS Resulted 04/13/18 23:00 Blood Blood Culture - Preliminary NO GROWTH AFTER 24 HOURS Resulted 04/14/18 01:05 Wound Gram Stain - Final Resulted 04/14/18 01:05 Wound Culture - Preliminary Gram Positive Cocci Resulted Current Medications Medications (Trade) Dose Ordered Sig/Jordi Route PRN Reason Start Time Stop Time Status Last Admin Dose Admin Amlodipine Besylate (Norvasc) 5 mg DAILY ORAL 04/14/18 09:00 05/14/18 08:59 Ascorbic Acid (Vitamin C) 500 mg DAILY ORAL 04/14/18 09:00 05/14/18 08:59 Aspirin (ASA) 81 mg DAILY ORAL 04/14/18 09:00 05/14/18 08:59 Heparin Sodium (Porcine) (Heparin 5000 units/ml) 5,000 units EVERY 12 HOURS SUBQ 04/14/18 09:00 05/14/18 08:59 04/14/18 21:33 Levofloxacin (Levaquin) 500 mg DAILY ORAL 04/15/18 09:00 04/22/18 08:59 04/15/18 09:35 Lorazepam (Ativan 2mg/ml 1ml) 2 mg Q4H PRN IM For Anxiety 04/14/18 10:00 04/21/18 09:59 04/15/18 09:26 Multivitamins (Multivitamins) 1 tab DAILY ORAL 04/14/18 09:00 05/14/18 08:59 Pantoprazole (Protonix) 40 mg DAILY IVP 04/14/18 09:00 05/14/18 08:59 Potassium Chloride (K-Dur) 10 meq DAILY ORAL 04/14/18 09:00 05/14/18 08:59 Quetiapine Fumarate (SEROquel) 100 mg EVERY 8 HOURS ORAL 04/14/18 10:00 05/14/18 09:59 04/15/18 05:40 Zinc Sulfate (Zinc Sulfate) 220 mg DAILY ORAL 04/14/18 09:00 05/14/18 08:59 Juan Manuel Gallardo MD Apr 15, 2018 10:53
[2018-04-15 11:32] LABS: HEMATOCRIT 39.3 % (42.0-52.0); HEMOGLOBIN 12.6 G/DL (14.2-18.0); MEAN CORPUSCULAR VOLUME 89 FL (80-99); PLATELET COUNT 342 K/UL (150-450); RED BLOOD COUNT 4.42 M/UL (4.70-6.10); RED CELL DISTRIBUTION WIDTH 13.9 % (11.6-14.8)
[2018-04-15 11:52] LABS: WHITE BLOOD COUNT 31.5 K/UL (4.8-10.8)
[2018-04-15 11:56] LABS: ANION GAP 14 mmol/L (5-15); BLOOD UREA NITROGEN 22 mg/dL (7-18); CALCIUM 9.3 MG/DL (8.5-10.1); CARBON DIOXIDE 23 MMOL/L (21-32); CHLORIDE 106 MMOL/L (98-107); CREATININE 1.2 MG/DL (0.55-1.30); PHOSPHORUS 2.9 MG/DL (2.5-4.9); POTASSIUM 3.3 MMOL/L (3.5-5.1); SODIUM 143 MMOL/L (136-145)
[2018-04-15 12:00] VITALS: BP 106/80
--- NOTE | 2018-04-15 12:01 | History & Physical ---
History and Physical History & Physicial H&P Internal Medicine REFERRING PHYSICIAN: Cady Berg REASON FOR CONSULT: Leukocytosis, ftt. DATE OF CONSULT: 04/14/2018 HPI 57 y/o M with hx of resection of carcinoma from right side of face/eye, COPD, dysphasia, schizophrenia, HTN, MDD, legally blind presents to ED on 04/13 with FTT, refusal to take meds and food. Patient was admitted here on June 2017 for superinfected necrotic Face mass w MRSA and ESBL, s/p Rx. Hematology service consulted for the evaluation of leukocytosis and ftt. Labs and imaging have been reviewed. Allergies: Coded Allergies: BENZTROPINE (Unverified Allergy, Unknown, 02/22/14) HALOPERIDOL (Unverified Allergy, Unknown, 02/22/14) PENICILLINS (Unverified Allergy, Unknown, 02/22/14) Medication History Scheduled Amlodipine Besylate (Norvasc), 5 MG ORAL DAILY, (Reported) Ascorbic Acid* (Vitamin C*), 500 MG ORAL DAILY, (Reported) Aspirin* (Aspirin*), 81 MG ORAL DAILY, (Reported) Chlorpromazine (Chlorpromazine HCl), 50 MG PO Q6HR, (Reported) Clonazepam* (Klonopin*), 1 MG ORAL BID, (Reported) Ertapenem Sodium* (INVanz*), 1 GM IVPB Q24H, (Reported) Escitalopram Oxalate* (Lexapro*), 10 MG ORAL DAILY, (Reported) Furosemide* (Lasix*), 20 MG ORAL DAILY, (Reported) Levofloxacin* (Levaquin*), 750 MG ORAL DAILY, (Reported) Multivit With Calcium,Iron,Min (Therapeutic M), 1 EACH PO DAILY, (Reported) Olanzapine* (Zyprexa*), 5 MG ORAL BID, (Reported) Pantoprazole* (Pantoprazole*), 40 MG ORAL DAILY, (Reported) Quetiapine Fumarate* (Seroquel*), 200 MG ORAL TWICE A DAY, (Reported) Temazepam (Temazepam*), 15 MG ORAL BEDTIME, (Reported) Trimethoprim/Sulfamethoxazole 160/800* (Bactrim Ds Tablet*), 1 TAB ORAL TWICE A DAY, (Reported) Valproate Sodium (Valproic Acid), 250 MG PO Q8HR, (Reported) Vancomycin Hcl/D5w (Vancomycin-D5w 1 G/250 Ml), 1.25 GM IVPB Q12HR, (Reported) Scheduled PRN Acetaminophen* (Acetaminophen 325MG Tablet*), 650 MG ORAL Q4H PRN for Pain Scale (3-5), (Reported) Miscellaneous Medications Lactobacillus Combo No.11 (Probiotic), 1 EACH PO, (Reported) Patient History Healthcare decision maker Resuscitation status Advanced Directive on File Yes Patient History Narrative PAST MEDICAL HISTORY: Above in HPI SOCIAL HISTORY: Reviewed FAMILY HISTORY: Noncontributory Review of Systems All Other Systems: negative except mentioned in HPI Physical Exam Physical Exam Narrative Vitals: Have been reviewed General Appearance: alert, agitated Head: normocephalic, atraumatic Eyes: right eye abnormal pupil - right eye has patch which covers the right temporal area of face as well from cancer ressection. ; left eye other - visible cataract, glassy/hazy appearance ENT: hearing grossly normal, other Neck: full range of motion Respiratory: chest non-tender, lungs clear, normal breath sounds, speaking full sentences Cardiovascular no edema, tachycardia Gastrointestinal: normal bowel sounds, non tender, soft Musculoskeletal: back normal, non-tender, other - bilateral hand contractures Skin: normal color, no rash, warm/dry Last 24 Hour Vital Signs Date Time Temp Pulse Resp B/P (MAP) Pulse Ox O2 Delivery O2 Flow Rate FiO2 04/14/18 08:00 97.3 102 21 106/52 (70) 95 04/14/18 04:00 98.1 99 18 147/76 (99) 95 04/14/18 01:47 Room Air 04/14/18 00:30 97.3 85 24 140/76 95 Room Air 98 04/14/18 00:00 97.3 85 24 140/76 95 Room Air 98 04/13/18 17:22 113 24 Room Air 98 04/13/18 17:22 97.3 85 24 165/84 95 Room Air 98 04/13/18 17:11 97.3 113 165/84 95 Room Air Laboratory Tests Test 04/13/18 23:00 04/14/18 06:40 White Blood Count 16.6 K/UL (4.8-10.8) H 23.0 K/UL (4.8-10.8) *H Red Blood Count 4.39 M/UL (4.70-6.10) L 4.26 M/UL (4.70-6.10) L Hemoglobin 13.1 G/DL (14.2-18.0) L 12.9 G/DL (14.2-18.0) L Hematocrit 39.0 % (42.0-52.0) L 38.2 % (42.0-52.0) L Mean Corpuscular Volume 89 FL (80-99) 90 FL (80-99) Mean Corpuscular Hemoglobin 29.9 PG (27.0-31.0) 30.2 PG (27.0-31.0) Mean Corpuscular Hemoglobin Concent 33.6 G/DL (32.0-36.0) 33.7 G/DL (32.0-36.0) Red Cell Distribution Width 13.9 % (11.6-14.8) 14.1 % (11.6-14.8) Platelet Count 377 K/UL (150-450) 374 K/UL (150-450) Mean Platelet Volume 6.1 FL (6.5-10.1) L 6.2 FL (6.5-10.1) L Neutrophils (%) (Auto) 50.1 % (45.0-75.0) % (45.0-75.0) Lymphocytes (%) (Auto) 44.4 % (20.0-45.0) % (20.0-45.0) Monocytes (%) (Auto) 3.6 % (1.0-10.0) % (1.0-10.0) Eosinophils (%) (Auto) 0.9 % (0.0-3.0) % (0.0-3.0) Basophils (%) (Auto) 1.0 % (0.0-2.0) % (0.0-2.0) Sodium Level 146 MMOL/L (136-145) H 149 MMOL/L (136-145) H Potassium Level 3.5 MMOL/L (3.5-5.1) 3.6 MMOL/L (3.5-5.1) Chloride Level 106 MMOL/L (98-107) 109 MMOL/L (98-107) H Carbon Dioxide Level 26 MMOL/L (21-32) 24 MMOL/L (21-32) Anion Gap 14 mmol/L (5-15) 16 mmol/L (5-15) H Blood Urea Nitrogen 28 mg/dL (7-18) H 28 mg/dL (7-18) H Creatinine 1.4 MG/DL (0.55-1.30) H 1.3 MG/DL (0.55-1.30) Estimat Glomerular Filtration Rate 52.2 mL/min (>60) 56.9 mL/min (>60) Glucose Level 79 MG/DL (74-106) 78 MG/DL (74-106) Calcium Level 9.7 MG/DL (8.5-10.1) 10.1 MG/DL (8.5-10.1) Total Bilirubin 0.8 MG/DL (0.2-1.0) 0.9 MG/DL (0.2-1.0) Aspartate Amino Transf (AST/SGOT) 17 U/L (15-37) 16 U/L (15-37) Alanine Aminotransferase (ALT/SGPT) 16 U/L (12-78) 18 U/L (12-78) Alkaline Phosphatase 87 U/L (46-116) 80 U/L (46-116) Total Creatine Kinase 62 U/L (26-308) Troponin I 0.000 ng/mL (0.000-0.056) Total Protein 7.6 G/DL (6.4-8.2) 7.3 G/DL (6.4-8.2) Albumin 4.0 G/DL (3.4-5.0) 3.8 G/DL (3.4-5.0) Globulin 3.6 g/dL 3.5 g/dL Albumin/Globulin Ratio 1.1 (1.0-2.7) 1.1 (1.0-2.7) Neutrophils % (Manual) Pending Lymphocytes % (Manual) Pending Platelet Estimate Pending Platelet Morphology Pending Height (Feet): 5 Height (Inches): 10.00 Weight (Pounds): 157 Medications Current Medications Medications (Trade) Dose Ordered Sig/Jordi Route PRN Reason Start Time Stop Time Status Last Admin Dose Admin Amlodipine Besylate (Norvasc) 5 mg DAILY ORAL 04/14/18 09:00 05/14/18 08:59 Ascorbic Acid (Vitamin C) 500 mg DAILY ORAL 04/14/18 09:00 05/14/18 08:59 Aspirin (ASA) 81 mg DAILY ORAL 04/14/18 09:00 05/14/18 08:59 Heparin Sodium (Porcine) (Heparin 5000 units/ml) 5,000 units EVERY 12 HOURS SUBQ 04/14/18 09:00 05/14/18 08:59 Multivitamins (Multivitamins) 1 tab DAILY ORAL 04/14/18 09:00 05/14/18 08:59 Non-Formulary Medication (Non-Formulary Med) 1 ea DAILY ORAL 04/14/18 09:00 05/14/18 08:59 UNV Pantoprazole (Protonix) 40 mg DAILY IVP 04/14/18 09:00 05/14/18 08:59 Potassium Chloride (K-Dur) 10 meq DAILY ORAL 04/14/18 09:00 05/14/18 08:59 Zinc Sulfate (Zinc Sulfate) 220 mg DAILY ORAL 04/14/18 09:00 05/14/18 08:59 IMAGING: None for this encounter ASSESSMENT AND RECOMMENDATIONS # Leukocytosis. Secondary to underlying infection, sepsis. --> Monitor and trend wbc for improvement --> Peripheral has been ordered, results are pending --> Medications have been reviewed --> Imaging has been reviewed --> Blood cultures and urine cultures prn --> has been started on abx, empiric treatment --> per ID management # FTT. # Sepsis. 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 # COPD. # Dysphasia # Schizophrenia # HTN. # Legally blind GREATLY APPRECIATE CONSULTATION. Time and date note entered in EMR does not reflect time and date of encounter. Jr Daly MD Apr 15, 2018 12:01
[2018-04-15] MEDS ORDERED: Isovue-300 100ml vial INJ PRN (12:45)
[2018-04-15] MEDS ORDERED: metroNIDAZOLE 500mg tab ORAL SCH (14:00)
[2018-04-15] MEDS ORDERED: Meropenem 1 GM in NS 55 ML IVPB SCH (14:00)
[2018-04-15] MEDS: Aztreonam Inj 2 GM in D5W 110 ML IVPB SCH ×2 (14:26→21:08)
[2018-04-15] MEDS ORDERED: Vancomycin 1500mg IVPB ONE (14:30)
--- NOTE | 2018-04-15 15:37 | General Progress Note ---
Assessment/Plan Status: stable Assessment/Plan # Leukocytosis. Secondary to underlying infection, sepsis. --> Monitor and trend wbc for improvement --> Peripheral has been ordered, results are pending --> Medications have been reviewed --> Imaging has been reviewed --> Blood cultures and urine cultures prn --> has been started on abx, empiric treatment --> per ID management # FTT. # Sepsis. 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 # COPD. # Dysphasia # Schizophrenia # HTN. # Legally blind GREATLY APPRECIATE CONSULTATION. Time and date note entered in EMR does not reflect time and date of encounter. Subjective Date patient seen: Apr 15, 2018 Allergies: Coded Allergies: BENZTROPINE (Unverified Allergy, Unknown, 02/22/14) HALOPERIDOL (Unverified Allergy, Unknown, 02/22/14) PENICILLINS (Unverified Allergy, Unknown, 04/14/18) tolerated Ceftriaxone 06/2017 All Systems: reviewed and negative except above Subjective 04/15: Pt awake and agitated. No acute events. Pt refusing meds. Objective Last 24 Hour Vital Signs Date Time Temp Pulse Resp B/P (MAP) Pulse Ox O2 Delivery O2 Flow Rate FiO2 04/15/18 12:00 98.2 100 20 106/80 (89) 97 04/15/18 09:00 Room Air 04/15/18 08:00 99.5 102 20 116/60 (78) 96 04/15/18 04:00 98.8 105 18 119/75 (90) 98 04/15/18 00:00 98.8 104 19 125/77 (93) 98 04/14/18 21:00 Room Air 04/14/18 20:00 98.7 104 18 124/78 (93) 98 04/14/18 16:00 97.4 104 22 121/72 (88) 95 Laboratory Tests 04/15/18 11:24: White Blood Count 31.5*H, Red Blood Count 4.42L, Hemoglobin 12.6L, Hematocrit 39.3L, Mean Corpuscular Volume 89, Mean Corpuscular Hemoglobin 28.5, Mean Corpuscular Hemoglobin Concent 32.1, Red Cell Distribution Width 13.9, Platelet Count 342, Mean Platelet Volume 6.4L, Neutrophils (%) (Auto) , Lymphocytes (%) ( Auto) , Monocytes (%) (Auto) , Eosinophils (%) (Auto) , Basophils (%) (Auto) , Differential Total Cells Counted 100, Neutrophils % (Manual) 77H, Lymphocytes % (Manual) 18L, Monocytes % (Manual) 4, Eosinophils % (Manual) 0, Basophils % ( Manual) 0, Band Neutrophils 1, Platelet Estimate Adequate, Platelet Morphology Normal, Red Blood Cell Morphology Normal, Sodium Level 143, Potassium Level 3.3L , Chloride Level 106, Carbon Dioxide Level 23, Anion Gap 14, Blood Urea Nitrogen 22H, Creatinine 1.2, Estimat Glomerular Filtration Rate > 60, Glucose Level 155H, Calcium Level 9.3, Phosphorus Level 2.9, Magnesium Level 2.1 Height (Feet): 5 Height (Inches): 10.00 Weight (Pounds): 157 Objective Vitals: Have been reviewed General Appearance: alert, agitated Head: normocephalic, atraumatic Eyes: right eye abnormal pupil - right eye has patch which covers the right temporal area of face as well from cancer ressection. ; left eye other - visible cataract, glassy/hazy appearance ENT: hearing grossly normal, other Neck: full range of motion Respiratory: chest non-tender, lungs clear, normal breath sounds, speaking full sentences Cardiovascular no edema, tachycardia Gastrointestinal: normal bowel sounds, non tender, soft Musculoskeletal: back normal, non-tender, other - bilateral hand contractures Skin: normal color, no rash, warm/dry Jr Daly MD Apr 15, 2018 15:37
[2018-04-15 16:00] VITALS: BP 121/71
--- NOTE | 2018-04-15 16:45 | NUR ---
NURSE NOTES: PT BECOMES VERBALLY ABUSIVE WHEN RN ATTEMPTS TO ATTACH IV TUBING TO PT'S IV ACCESS. PT YELLS AT RN. NON-COMBATIVE.
--- NOTE | 2018-04-15 17:59 | Diagnostic Imaging Report ---
EXAM: CT Chest Without Intravenous Contrast CLINICAL HISTORY: ABSCESS TECHNIQUE: Axial computed tomography images of the chest without intravenous contrast. CTDI is 23.95 mGy and DLP is 813 mGy-cm. One or more of the following dose reduction techniques were used: automated exposure control, adjustment of the mA and/or kV according to patient size, use of iterative reconstruction technique. COMPARISON: Chest radiograph 04/15/2018 FINDINGS: Lungs: Unremarkable. No mass. No consolidation. Pleural space: Unremarkable. No pneumothorax. No significant effusion. Heart: Unremarkable. No cardiomegaly. No significant pericardial effusion. Bones/joints: Unremarkable. No acute fracture. No dislocation. Soft tissues: Unremarkable. Vasculature: Unremarkable. No thoracic aortic aneurysm. Lymph nodes: Unremarkable. No enlarged lymph nodes. IMPRESSION: Unremarkable study.
--- NOTE | 2018-04-15 18:13 | Diagnostic Imaging Report ---
EXAM: CT Abdomen and Pelvis With Intravenous Contrast CLINICAL HISTORY: ABSCESS TECHNIQUE: Axial computed tomography images of the abdomen and pelvis with intravenous contrast. CTDI is 18 mGy and DLP is 1048 mGy-cm. One or more of the following dose reduction techniques were used: automated exposure control, adjustment of the mA and/or kV according to patient size, use of iterative reconstruction technique. Coronal reformatted images were created and reviewed. Axial reformatted images were created and reviewed. COMPARISON: No relevant prior studies available. FINDINGS: Lung bases: Unremarkable. No mass. No consolidation. ABDOMEN: Liver: Unremarkable. No mass. Gallbladder and bile ducts: Unremarkable. No calcified stones. No ductal dilation. Pancreas: Unremarkable. No mass. No ductal dilation. Spleen: Unremarkable. No splenomegaly. Adrenals: Unremarkable. No mass. Kidneys and ureters: Probably benign 0.8 cm right renal hypodensity likely representing a benign cyst in the absence of known metastatic disease. No hydronephrosis. Stomach and bowel: Unremarkable. No obstruction. No mucosal thickening. PELVIS: Appendix: No findings to suggest acute appendicitis. Bladder: Unremarkable. No mass. Reproductive: Unremarkable as visualized. ABDOMEN and PELVIS: Intraperitoneal space: Unremarkable. No free air. No significant fluid collection. Bones/joints: Minimal anterior wedge deformity of L1, approximately 0. 6 cm height loss without surrounding fat stranding to suggest acute injury. This is likely chronic, correlate clinically. No dislocation. Soft tissues: Unremarkable. Vasculature: Unremarkable. No abdominal aortic aneurysm. Lymph nodes: Circumferential urinary bladder wall thickening with surrounding fat stranding. Prominent enhancement of the prostate. Numerous benign-appearing prominent bilateral pelvic sidewall lymph nodes are likely reactive. IMPRESSION: 1. Findings suggesting cystitis with or without prostatitis, correlate clinically. 2. Probably benign 0.8 cm right renal hypodensity likely representing a benign cyst in the absence of known metastatic disease. 3. Minimal anterior wedge deformity of L1, approximately 0.6 cm height loss without surrounding fat stranding to suggest acute injury. This is likely chronic, correlate clinically.
--- NOTE | 2018-04-15 18:26 | NUR ---
NURSE NOTES: MADE AWARE PT IS NOT COMPLIANT WITH PO MEDICATIONS. DR. SHAW WITH ORDER TO CHANGE FLAGYL 500MG PO Q8H TO IV.
--- NOTE | 2018-04-15 18:26 | General Progress Note ---
Assessment/Plan Assessment/Plan Assessment (1) Dysphasia (2) Encounter for PEG (percutaneous endoscopic gastrostomy) (3) Schizophrenia (4) Failure to thrive in adult (5) Generalized weakness (6) Severe malnutrition (7) Dehydration Plan Consider psych eval Will consider PEG pending workup. Speech therapist evaluation pending rule out dysphagia Calorie count in progress see if nutritional needs are met Patient on regular diet One-to-one feeder IV/p.o. hydration Antibiotics PPI Follow-up labs Subjective Allergies: Coded Allergies: BENZTROPINE (Unverified Allergy, Unknown, 02/22/14) HALOPERIDOL (Unverified Allergy, Unknown, 02/22/14) PENICILLINS (Unverified Allergy, Unknown, 04/14/18) tolerated Ceftriaxone 06/2017 Subjective angry cussing at the sandhu and at anyone entering the room foul language Objective Last 24 Hour Vital Signs Date Time Temp Pulse Resp B/P (MAP) Pulse Ox O2 Delivery O2 Flow Rate FiO2 04/15/18 16:00 99.1 104 20 121/71 (88) 96 04/15/18 12:00 98.2 100 20 106/80 (89) 97 04/15/18 09:00 Room Air 04/15/18 08:00 99.5 102 20 116/60 (78) 96 04/15/18 04:00 98.8 105 18 119/75 (90) 98 04/15/18 00:00 98.8 104 19 125/77 (93) 98 04/14/18 21:00 Room Air 04/14/18 20:00 98.7 104 18 124/78 (93) 98 Intake and Output 04/14/18 04/15/18 19:00 07:00 # Voids 4 2 Laboratory Tests 04/15/18 11:24: White Blood Count 31.5*H, Red Blood Count 4.42L, Hemoglobin 12.6L, Hematocrit 39.3L, Mean Corpuscular Volume 89, Mean Corpuscular Hemoglobin 28.5, Mean Corpuscular Hemoglobin Concent 32.1, Red Cell Distribution Width 13.9, Platelet Count 342, Mean Platelet Volume 6.4L, Neutrophils (%) (Auto) , Lymphocytes (%) ( Auto) , Monocytes (%) (Auto) , Eosinophils (%) (Auto) , Basophils (%) (Auto) , Differential Total Cells Counted 100, Neutrophils % (Manual) 77H, Lymphocytes % (Manual) 18L, Monocytes % (Manual) 4, Eosinophils % (Manual) 0, Basophils % ( Manual) 0, Band Neutrophils 1, Platelet Estimate Adequate, Platelet Morphology Normal, Red Blood Cell Morphology Normal, Sodium Level 143, Potassium Level 3.3L , Chloride Level 106, Carbon Dioxide Level 23, Anion Gap 14, Blood Urea Nitrogen 22H, Creatinine 1.2, Estimat Glomerular Filtration Rate > 60, Glucose Level 155H, Calcium Level 9.3, Phosphorus Level 2.9, Magnesium Level 2.1 Height (Feet): 5 Height (Inches): 10.00 Weight (Pounds): 157 Objective Declines exam Kati King MD Apr 15, 2018 18:26
--- NOTE | 2018-04-15 19:26 | NUR ---
HAND-OFF: Report given to Newton APARICIO RN & Josey RANKIN RN.
--- NOTE | 2018-04-15 19:31 | NUR ---
NURSE NOTES: Pt received lying awake in bed at lowest position, call light within reach, condom catheter in place, Vanco finished.
[2018-04-15 20:00] VITALS: BP 113/74
--- NOTE | 2018-04-15 21:08 | NUR ---
NURSE NOTES: Heparin was drawn in syringe and at bedside pt refused the medication stating that is all the medication he will take. Waste witnessed by ANISH Rodgers
[2018-04-16] VITALS: BP 139/69
[2018-04-16] MEDS: Vancomycin 1250mg/D5W 250ml IVPB SCH ×2 (02:27→15:53)
[2018-04-16 04:00] VITALS: BP 121/70
[2018-04-16] MEDS: Aztreonam Inj 2 GM in D5W 110 ML IVPB SCH ×3 (05:01→22:24)
--- NOTE | 2018-04-16 07:30 | NUR ---
HAND-OFF: Report given to ANISH Monique.
[2018-04-16 08:00] VITALS: BP 127/75
[2018-04-16] MEDS: Aspirin Baby 81mg ORAL SCH (08:17)
[2018-04-16] MEDS: Pantoprazole Inj IVP SCH (08:17)
[2018-04-16] MEDS: Zinc Sulfate 220mg cap ORAL SCH (08:17)
[2018-04-16] MEDS: Heparin 5000 units/ml inj SUBQ SCH ×2 (08:21→21:26)
[2018-04-16] MEDS: Ascorbic Acid 500mg tab ORAL SCH (08:26)
--- NOTE | 2018-04-16 10:53 | NUR ---
NURSE NOTES: PT VERBALLY AGGRESSIVE TO STAFF. IN NO APPARENT DISTRESS AT THIS TIME. LEFT FOREARM IV ACCESS ASYMPTOMATIC, PATENT AND INTACT. BED IN LOWEST POSITION WITH BEDSIDE RAILS X3 RAISED. WILL CONTINUE TO MONITOR.
--- NOTE | 2018-04-16 11:19 | NUR ---
NURSE NOTES: PT EDUCATED ON NEEDING URINE SPECIMEN AND NEED CONDOM CATH. PT DOES NOT LISTEN TO RN, IVONES PROFANITIES AND REMOVED CONDOM CATH.
[2018-04-16 12:00] VITALS: BP 124/87
[2018-04-16] MEDS: LORazepam Inj 2mg/ml 1ml IM PRN (13:44)
--- NOTE | 2018-04-16 14:04 | General Progress Note ---
Assessment/Plan Assessment/Plan # Leukocytosis. Secondary to underlying infection, sepsis. --> Monitor and trend wbc for improvement --> Peripheral has been ordered, results are pending --> Medications have been reviewed --> Imaging has been reviewed --> Blood cultures and urine cultures prn --> has been started on abx, empiric treatment --> per ID management # FTT. # Sepsis. 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 # COPD. # Dysphasia # Schizophrenia # HTN. # Legally blind GREATLY APPRECIATE CONSULTATION. Time and date note entered in EMR does not reflect time and date of encounter. Subjective Constitutional: Denies: no symptoms, chills, diaphoresis, fever, malaise, weakness, other HEENT: Denies: no symptoms, eye pain, blurred vision, tearing, double vision, ear pain, ear discharge, nose pain, nose congestion, throat pain, throat swelling, mouth pain, mouth swelling, other Cardiovascular: Denies: no symptoms, chest pain, edema, irregular heart rate, lightheadedness, palpitations, syncope, other Respiratory: Denies: no symptoms, cough, orthopnea, shortness of breath, SOB with excertion, SOB at rest, sputum, stridor, wheezing, other Gastrointestinal/Abdominal: Denies: no symptoms, abdomen distended, abdominal pain, black stools, tarry stools, blood in stool, constipated, diarrhea, difficulty swallowing, nausea, poor appetite, poor fluid intake, rectal bleeding , vomiting, other Genitourinary: Denies: no symptoms, burning, discharge, frequency, flank pain, hematuria, incontinence, pain, urgency, other Neurologic/Psychiatric: Denies: no symptoms, anxiety, depressed, emotional problems, headache, numbness, paresthesia, pre-existing deficit, seizure, tingling, tremors, weakness, other Hematologic/Lymphatic: Reports: anemia Allergies: Coded Allergies: BENZTROPINE (Unverified Allergy, Unknown, 02/22/14) HALOPERIDOL (Unverified Allergy, Unknown, 02/22/14) PENICILLINS (Unverified Allergy, Unknown, 04/14/18) tolerated Ceftriaxone 06/2017 Subjective 04/15: Pt awake and agitated. No acute events. Pt refusing meds. 04/16: wbc severely elevated, seen by Id, on broad spectrum antifungals, foul language, very aggressive Objective Last 24 Hour Vital Signs Date Time Temp Pulse Resp B/P (MAP) Pulse Ox O2 Delivery O2 Flow Rate FiO2 04/16/18 12:00 99.5 115 19 124/87 (99) 96 04/16/18 09:00 Room Air 04/16/18 08:21 109 127/69 04/16/18 08:00 99.7 107 19 127/75 (92) 96 04/16/18 04:00 98.3 99 18 121/70 (87) 99 04/16/18 00:00 98.0 102 19 139/69 (92) 97 04/15/18 21:00 Room Air 04/15/18 20:00 97.9 98 19 113/74 (87) 97 04/15/18 16:00 99.1 104 20 121/71 (88) 96 Intake and Output 04/15/18 04/16/18 19:00 07:00 Intake Total 960 ml 863.337 ml Balance 960 ml 863.337 ml Intake Oral 600 ml 100 ml IV Total 360 ml 763.337 ml # Voids 2 Height (Feet): 5 Height (Inches): 10.00 Weight (Pounds): 157 Objective Vitals: Have been reviewed General Appearance: alert, agitated Head: normocephalic, atraumatic Eyes: right eye abnormal pupil - right eye has patch which covers the right temporal area of face as well from cancer ressection. ; left eye other - visible cataract, glassy/hazy appearance ENT: hearing grossly normal, other Neck: full range of motion Respiratory: chest non-tender, lungs clear, normal breath sounds, speaking full sentences Cardiovascular no edema, tachycardia Gastrointestinal: normal bowel sounds, non tender, soft Musculoskeletal: back normal, non-tender, other - bilateral hand contractures Skin: normal color, no rash, warm/dry Jr Daly MD Apr 16, 2018 14:04
--- NOTE | 2018-04-16 15:21 | General Progress Note ---
Assessment/Plan Problem List: (1) Cancer ICD Codes: C80.1 - Malignant (primary) neoplasm, unspecified SNOMED: 677607503 (2) Generalized weakness ICD Codes: R53.1 - Weakness SNOMED: 48407454 (3) Severe malnutrition ICD Codes: E43 - Unspecified severe protein-calorie malnutrition SNOMED: 39698967 (4) Failure to thrive in adult ICD Codes: R62.7 - Adult failure to thrive SNOMED: 955582064 (5) Poor fluid intake ICD Codes: R63.8 - Other symptoms and signs concerning food and fluid intake SNOMED: 310641451 (6) Schizophrenia ICD Codes: F20.9 - Schizophrenia, unspecified SNOMED: 64202280 Status: progressing Assessment/Plan FTT poor appetiti reviewed chart and labs afebrile no acute events Subjective ROS Limited/Unobtainable: Yes Allergies: Coded Allergies: BENZTROPINE (Unverified Allergy, Unknown, 02/22/14) HALOPERIDOL (Unverified Allergy, Unknown, 02/22/14) PENICILLINS (Unverified Allergy, Unknown, 04/14/18) tolerated Ceftriaxone 06/2017 Objective Last 24 Hour Vital Signs Date Time Temp Pulse Resp B/P (MAP) Pulse Ox O2 Delivery O2 Flow Rate FiO2 04/16/18 12:00 99.5 115 19 124/87 (99) 96 04/16/18 09:00 Room Air 04/16/18 08:21 109 127/69 04/16/18 08:00 99.7 107 19 127/75 (92) 96 04/16/18 04:00 98.3 99 18 121/70 (87) 99 04/16/18 00:00 98.0 102 19 139/69 (92) 97 04/15/18 21:00 Room Air 04/15/18 20:00 97.9 98 19 113/74 (87) 97 04/15/18 16:00 99.1 104 20 121/71 (88) 96 Intake and Output 04/15/18 04/16/18 19:00 07:00 Intake Total 960 ml 863.337 ml Balance 960 ml 863.337 ml Intake Oral 600 ml 100 ml IV Total 360 ml 763.337 ml # Voids 2 Height (Feet): 5 Height (Inches): 10.00 Weight (Pounds): 157 General Appearance: confused Neck: supple Cardiovascular: normal rate Cady Berg MD Apr 16, 2018 15:21
--- NOTE | 2018-04-16 16:03 | NUR ---
NURSE NOTES: PT HAS NOT URINATED TODAY. BLADDER DISTENDED UPON PALPATION. PT DOES NOT LET RN DO ANY FURTHER ASSESSMENTS LIKE BLADER SCAN. PT VERBALLY ABUSIVE, RESISTANT TO CARE, AND AGGRESSIVE WHEN STAFF TRIES TO TOUCH PT. RN LEFT MESSAGE FOR DR. PAGE REGARDING ASSESSMENT. AWAITING NEW ORDERS.
--- NOTE | 2018-04-16 16:56 | NUR ---
NURSE NOTES: PT WITH URINATION, SOAKED [address] RN NOT[address] PAGE, WITH ORDER TO CONSULT DR NUNEZ IF HE WANTS TO CONTINUE WITH INSERTION OF POLLARD CATHETER. RN MADE DR NUNEZ AWARE WITH NEW ORDERS: START FLOMAX 0.4MG QHS, BOLUS NS 500CC X1, AND START D5NS AT 75CC/H. PER MD, DO NOT CALL IF THERE IS NO IV ACCESS OR PT NOT URINATING. MD WILL SEE PT TOMORROW. MD STATES THAT HE HAS BEEN SEEING PT EVERYDAY, BUT PT IS TOO COMBATIVE FOR ASSESSMENT. NEEDS TO HAVE AGITATION CONTROLLED BEFORE MD CAN EVALUATE HIM.
[2018-04-16] MEDS: D5NS 1,000 ML IV SCH ×2 (17:30→23:02)
--- NOTE | 2018-04-16 18:25 | General Progress Note ---
Assessment/Plan Problem List: (1) Schizophrenia ICD Codes: F20.9 - Schizophrenia, unspecified SNOMED: 79127400 (2) Failure to thrive in adult ICD Codes: R62.7 - Adult failure to thrive SNOMED: 081220795 Assessment/Plan dc zyprexa seroquel 100mg tid dc haldol IM ativan Im Recommend hospice placement. Subjective Date patient seen: Apr 15, 2018 Neurologic/Psychiatric: Reports: anxiety Allergies: Coded Allergies: BENZTROPINE (Unverified Allergy, Unknown, 02/22/14) HALOPERIDOL (Unverified Allergy, Unknown, 02/22/14) PENICILLINS (Unverified Allergy, Unknown, 04/14/18) tolerated Ceftriaxone 06/2017 Subjective the pt is agitated and using profanity Objective Last 24 Hour Vital Signs Date Time Temp Pulse Resp B/P (MAP) Pulse Ox O2 Delivery O2 Flow Rate FiO2 04/16/18 12:00 99.5 115 19 124/87 (99) 96 04/16/18 09:00 Room Air 04/16/18 08:21 109 127/69 04/16/18 08:00 99.7 107 19 127/75 (92) 96 04/16/18 04:00 98.3 99 18 121/70 (87) 99 04/16/18 00:00 98.0 102 19 139/69 (92) 97 04/15/18 21:00 Room Air 04/15/18 20:00 97.9 98 19 113/74 (87) 97 Intake and Output 04/15/18 04/16/18 19:00 07:00 Intake Total 960 ml 863.337 ml Balance 960 ml 863.337 ml Intake Oral 600 ml 100 ml IV Total 360 ml 763.337 ml # Voids 2 Height (Feet): 5 Height (Inches): 10.00 Weight (Pounds): 157 General Appearance: alert, confused, agitated Nathaniel Davis MD Apr 16, 2018 18:25
--- NOTE | 2018-04-16 19:07 | General Progress Note ---
Assessment/Plan Assessment/Plan Assessment (1) Dysphasia (2) Encounter for PEG (percutaneous endoscopic gastrostomy) (3) Schizophrenia (4) Failure to thrive in adult (5) Generalized weakness (6) Severe malnutrition (7) Dehydration Plan psych f/u Will consider PEG pending workup. Speech therapist evaluation pending rule out dysphagia Calorie count in progress see if nutritional needs are met Patient on regular diet One-to-one feeder IV/p.o. hydration Antibiotics PPI Follow-up labs Subjective Allergies: Coded Allergies: BENZTROPINE (Unverified Allergy, Unknown, 02/22/14) HALOPERIDOL (Unverified Allergy, Unknown, 02/22/14) PENICILLINS (Unverified Allergy, Unknown, 04/14/18) tolerated Ceftriaxone 06/2017 Subjective less agitated today Objective Last 24 Hour Vital Signs Date Time Temp Pulse Resp B/P (MAP) Pulse Ox O2 Delivery O2 Flow Rate FiO2 04/16/18 12:00 99.5 115 19 124/87 (99) 96 04/16/18 09:00 Room Air 04/16/18 08:21 109 127/69 04/16/18 08:00 99.7 107 19 127/75 (92) 96 04/16/18 04:00 98.3 99 18 121/70 (87) 99 04/16/18 00:00 98.0 102 19 139/69 (92) 97 04/15/18 21:00 Room Air 04/15/18 20:00 97.9 98 19 113/74 (87) 97 Intake and Output 04/15/18 04/16/18 19:00 07:00 Intake Total 960 ml 863.337 ml Balance 960 ml 863.337 ml Intake Oral 600 ml 100 ml IV Total 360 ml 763.337 ml # Voids 2 Height (Feet): 5 Height (Inches): 10.00 Weight (Pounds): 157 Objective R facial trauma CTA Kati Colon MD Apr 16, 2018 19:07
--- NOTE | 2018-04-16 19:23 | NUR ---
HAND-OFF: Report given to BRET TREVIZO RN.
[2018-04-16 20:00] VITALS: BP 144/85
[2018-04-16] MEDS: Valproic Acid 250mg/5ml Liquid ORAL SCH (21:00)
[2018-04-16] MEDS: Tamsulosin 0.4mg cap ORAL SCH (21:00)
--- NOTE | 2018-04-16 21:10 | NUR ---
NURSE NOTES: Patient refused 2100 PO medication, anxious and yelling at staff. No acute distress noted. Refused dressing on right eye. Safety precaution maintained. Bed in lowest position for safety.
[2018-04-17] VITALS: BP 135/74
[2018-04-17] MEDS: Vancomycin 1250mg/D5W 250ml IVPB SCH ×2 (03:10→16:41)
[2018-04-17 04:00] VITALS: BP 131/92
[2018-04-17] MEDS: Aztreonam Inj 2 GM in D5W 110 ML IVPB SCH ×3 (05:21→22:09)
--- NOTE | 2018-04-17 07:20 | NUR ---
HAND-OFF: Report given to Jennie OCONNELL.
--- NOTE | 2018-04-17 07:22 | NUR ---
NURSE NOTES: received patient in bed, patient awake, verbally aggrsiive , no sign of distress, denies pain or discomfort at this time, saying dont touch me, IVF patent and infusing well, on fall precaution observed and maintained, both side rails up for safety, plan of care was discussed , needs reinforcement , will continue to monitor patient condition zackery torres
[2018-04-17] MEDS: Pantoprazole Inj IVP SCH (08:16)
[2018-04-17] MEDS: Zinc Sulfate 220mg cap ORAL SCH (08:17)
[2018-04-17] MEDS: Aspirin Baby 81mg ORAL SCH (08:17)
[2018-04-17] MEDS: Ascorbic Acid 500mg tab ORAL SCH (08:17)
--- NOTE | 2018-04-17 08:24 | Infectious Diseases Prog Note ---
Assessment/Plan Assessment/Plan Sepsis- ?source- r/o UTI, PNA Afebrile Leukocytosis, increased ? 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 If leukocytosis continues to increase will MRI of eyes Subjective Allergies: Coded Allergies: BENZTROPINE (Unverified Allergy, Unknown, 02/22/14) HALOPERIDOL (Unverified Allergy, Unknown, 02/22/14) PENICILLINS (Unverified Allergy, Unknown, 04/14/18) tolerated Ceftriaxone 06/2017 Subjective Afebrile but leukocytosis increasing when last check on 04/15/18 CRISTIANA, irritable Objective Vital Signs Last 24 Hour Vital Signs Date Time Temp Pulse Resp B/P (MAP) Pulse Ox O2 Delivery O2 Flow Rate FiO2 04/17/18 04:00 98.2 107 19 131/92 (105) 96 04/17/18 00:00 98.5 101 18 135/74 (94) 96 04/16/18 21:00 Room Air 04/16/18 20:00 99.0 89 20 144/85 (104) 98 04/16/18 12:00 99.5 115 19 124/87 (99) 96 04/16/18 09:00 Room Air 04/16/18 08:21 109 127/69 Height (Feet): 5 Height (Inches): 10.00 Weight (Pounds): 157 Objective General: NAD HEENT: NCAT, right eye has patch which covers the right temporal area of face as well, left eye - visible cataract, glassy/hazy appearance Respiratory: CATB, No W/C Cardiovascular no edema, tachycardia Gastrointestinal: normal bowel sounds, non tender, soft Musculoskeletal: back normal, non-tender, other - bilateral hand contractures Current Medications Medications (Trade) Dose Ordered Sig/Jordi Route PRN Reason Start Time Stop Time Status Last Admin Dose Admin Amlodipine Besylate (Norvasc) 5 mg DAILY ORAL 04/14/18 09:00 05/14/18 08:59 Ascorbic Acid (Vitamin C) 500 mg DAILY ORAL 04/14/18 09:00 05/14/18 08:59 04/16/18 08:26 Aspirin (ASA) 81 mg DAILY ORAL 04/14/18 09:00 05/14/18 08:59 04/16/18 08:17 Aztreonam 2 gm/ Dextrose 110 ml @ 220 mls/hr Q8HR IVPB 04/15/18 14:00 04/22/18 13:59 04/17/18 05:21 Barium Sulfate (Readi-Cat 2) 450 ml NOW PRN ORAL Radiology Procedure 04/15/18 12:45 04/17/18 12:39 Dextrose/Sodium Chloride 1,000 ml @ 75 mls/hr [id number] IV 04/16/18 17:30 05/16/18 17:29 04/16/18 23:02 Heparin Sodium (Porcine) (Heparin 5000 units/ml) 5,000 units EVERY 12 HOURS SUBQ 04/14/18 09:00 05/14/18 08:59 04/16/18 21:26 Iopamidol (Isovue-300 100ml) 100 ml NOW PRN INJ Radiology Procedure 04/15/18 12:45 04/17/18 12:39 Lorazepam (Ativan 2mg/ml 1ml) 2 mg Q4H PRN IM For Anxiety 04/14/18 10:00 04/21/18 09:59 04/16/18 13:44 Metronidazole 100 ml @ 100 mls/hr Q8HR IVPB 04/15/18 22:00 04/22/18 21:59 04/17/18 05:57 Multivitamins (Multivitamins) 1 tab DAILY ORAL 04/14/18 09:00 05/14/18 08:59 04/16/18 08:17 Pantoprazole (Protonix) 40 mg DAILY IVP 04/14/18 09:00 05/14/18 08:59 04/16/18 08:17 Potassium Chloride (K-Dur) 10 meq DAILY ORAL 04/14/18 09:00 05/14/18 08:59 04/16/18 08:17 Quetiapine Fumarate (SEROquel) 100 mg EVERY 8 HOURS ORAL 04/14/18 10:00 05/14/18 09:59 04/17/18 05:57 Tamsulosin HCl (Flomax) 0.4 mg BEDTIME ORAL 04/16/18 21:00 05/16/18 20:59 Valproic Acid (Depakene) 1,000 mg BEDTIME ORAL 04/16/18 21:00 05/16/18 20:59 Vancomycin HCl (Vanco rx to dose) 1 ea DAILY PRN MISC Per rx protocol 04/15/18 12:45 05/15/18 12:44 Vancomycin HCl/ Dextrose 250 ml @ 166.667 mls/hr Q12H IVPB 04/16/18 03:00 04/21/18 02:59 04/17/18 03:10 Zinc Sulfate (Zinc Sulfate) 220 mg DAILY ORAL 04/14/18 09:00 05/14/18 08:59 04/16/18 08:17 Jozef Greene MD Apr 17, 2018 08:24
[2018-04-17] MEDS: Heparin 5000 units/ml inj SUBQ SCH ×2 (08:27→20:51)
--- NOTE | 2018-04-17 11:35 | Consultation ---
Consult Note Consult Note asked to eval at the request of Dr chacko for low urine out put 57-year-old male presents to the emergency department brought by ambulance for refusal to take medications and refusal to eat x 3 days. Patient has a history of blindness, malignant neoplasm of the right eye, COPD, dysphasia, schizophrenia, depression and is being legally blind. Patient himself is a poor historian and refuses to provide answers to ROS and history of present illness questions. Patient has report cooperation and also gets agitated easily. He does not want to talk about why he is refusing to eat. HPI and ROS are limited due to poor pt. cooperation. Pt. supposed to be taking compazine for schizophrenia. Most information came from packet which pt. presented to the ED with from [facility] Coded Allergies: BENZTROPINE (Unverified Allergy, Unknown, 02/22/14) HALOPERIDOL (Unverified Allergy, Unknown, 02/22/14) PENICILLINS (Unverified Allergy, Unknown, 02/22/14) Hx Cardiac Problems: Yes Hx Hypertension: Yes Hx COPD: Yes Hx Gastrointestinal Problems: Yes Hx Memory Loss: Yes - confusion resists exam- aggressive data reviewed Assessment/Plan (1) Dysphasia (2) Encounter for PEG (percutaneous endoscopic gastrostomy) (3) Schizophrenia (4) Failure to thrive in adult (5) Generalized weakness (6) Severe malnutrition (7) Dehydration (8) Schizophrenia (9) HTN (10) Legally Blind IV Fluids- Flomax Psych mangement per consultants check labs Al Roper MD Apr 17, 2018 11:35
--- NOTE | 2018-04-17 11:40 | General Progress Note ---
Assessment/Plan Problem List: (1) Cancer ICD Codes: C80.1 - Malignant (primary) neoplasm, unspecified SNOMED: 682325280 (2) Generalized weakness ICD Codes: R53.1 - Weakness SNOMED: 40571001 (3) Severe malnutrition ICD Codes: E43 - Unspecified severe protein-calorie malnutrition SNOMED: 95779164 (4) Failure to thrive in adult ICD Codes: R62.7 - Adult failure to thrive SNOMED: 871091242 (5) Poor fluid intake ICD Codes: R63.8 - Other symptoms and signs concerning food and fluid intake SNOMED: 356607302 (6) Schizophrenia ICD Codes: F20.9 - Schizophrenia, unspecified SNOMED: 58110568 Status: progressing Assessment/Plan FTT poor appetiti reviewed chart and labs cancer psych patient afebrile malnutrition diet and feeding per gi Subjective ROS Limited/Unobtainable: Yes Allergies: Coded Allergies: BENZTROPINE (Unverified Allergy, Unknown, 02/22/14) HALOPERIDOL (Unverified Allergy, Unknown, 02/22/14) PENICILLINS (Unverified Allergy, Unknown, 04/14/18) tolerated Ceftriaxone 06/2017 Objective Last 24 Hour Vital Signs Date Time Temp Pulse Resp B/P (MAP) Pulse Ox O2 Delivery O2 Flow Rate FiO2 04/17/18 08:17 107 131/92 04/17/18 08:10 Room Air 04/17/18 04:00 98.2 107 19 131/92 (105) 96 04/17/18 00:00 98.5 101 18 135/74 (94) 96 04/16/18 21:00 Room Air 04/16/18 20:00 99.0 89 20 144/85 (104) 98 04/16/18 12:00 99.5 115 19 124/87 (99) 96 Intake and Output 04/16/18 04/17/18 18:59 06:59 Intake Total 1070.000 ml 1273.334 ml Balance 1070.000 ml 1273.334 ml Intake Oral 360 ml 120 ml IV Total 710.000 ml 1153.334 ml # Voids 1 2 Height (Feet): 5 Height (Inches): 10.00 Weight (Pounds): 157 Neck: supple Cardiovascular: normal rate Respiratory/Chest: lungs clear Cady Berg MD Apr 17, 2018 11:40
--- NOTE | 2018-04-17 11:43 | General Progress Note ---
Assessment/Plan Problem List: (1) Cancer ICD Codes: C80.1 - Malignant (primary) neoplasm, unspecified SNOMED: 540836856 (2) Generalized weakness ICD Codes: R53.1 - Weakness SNOMED: 18805235 (3) Severe malnutrition ICD Codes: E43 - Unspecified severe protein-calorie malnutrition SNOMED: 13438141 (4) Failure to thrive in adult ICD Codes: R62.7 - Adult failure to thrive SNOMED: 895653433 (5) Poor fluid intake ICD Codes: R63.8 - Other symptoms and signs concerning food and fluid intake SNOMED: 744361164 (6) Schizophrenia ICD Codes: F20.9 - Schizophrenia, unspecified SNOMED: 26763842 Status: progressing Assessment/Plan FTT poor appetite reviewed chart and labs cancer psych patient afebrile malnutrition diet and feeding per gi Subjective ROS Limited/Unobtainable: Yes Allergies: Coded Allergies: BENZTROPINE (Unverified Allergy, Unknown, 02/22/14) HALOPERIDOL (Unverified Allergy, Unknown, 02/22/14) PENICILLINS (Unverified Allergy, Unknown, 04/14/18) tolerated Ceftriaxone 06/2017 Objective Last 24 Hour Vital Signs Date Time Temp Pulse Resp B/P (MAP) Pulse Ox O2 Delivery O2 Flow Rate FiO2 04/17/18 08:17 107 131/92 04/17/18 08:10 Room Air 04/17/18 04:00 98.2 107 19 131/92 (105) 96 04/17/18 00:00 98.5 101 18 135/74 (94) 96 04/16/18 21:00 Room Air 04/16/18 20:00 99.0 89 20 144/85 (104) 98 04/16/18 12:00 99.5 115 19 124/87 (99) 96 Intake and Output 04/16/18 04/17/18 18:59 06:59 Intake Total 1070.000 ml 1273.334 ml Balance 1070.000 ml 1273.334 ml Intake Oral 360 ml 120 ml IV Total 710.000 ml 1153.334 ml # Voids 1 2 Height (Feet): 5 Height (Inches): 10.00 Weight (Pounds): 157 Cardiovascular: normal rate Respiratory/Chest: lungs clear Cady Berg MD Apr 17, 2018 11:43
[2018-04-17 12:00] VITALS: BP 141/91
[2018-04-17] MEDS ORDERED: FLUPHENAZINE DECANOATE 25 MG/ML IM ONE (13:00)
--- NOTE | 2018-04-17 15:18 | NUR ---
RD ASSESSMENT & RECOMMENDATIONS SEE CARE ACTIVITY FOR COMPLETE ASSESSMENT DAILY ESTIMATED NEEDS: Needs based on Wound/ 71kg 25-30 kcals/kg 7718-5411 total kcals 1.25-1.7 g protein/kg 88-120 g total protein 25-30 mL/kg 8551-7375 total fluid mLs NUTRITION DIAGNOSIS: * Increased kcal/pro intake needs R/T wound healing as evidenced by pt w/ open wound @ rt eye due to h/o resection of carcinoma. * Inadequate oral intake R/T psych issues? etiology unknown as evidenced by pt admitted w/ c/o refusing to eat w/ FTT dx. CURRENT DIET: REGULAR * CALORIE COUNT: Pt w/ 48 kcal count, refusing all meals, 0% on all meal ticket items. Per PALLETIZER pt is only drinking juice. Not meeting est kcal or protein needs. Add Ensure TID (350 kcal/ 20g prot each). PO DIET RECOMMENDATIONS: Liberalized REGULAR diet/ texture per SIGNING AGENT + ENSURE TID ENTERAL NUTRITION RECOMMENDATIONS: (CONSULT RD IF TF INDICATED) ADDITIONAL RECOMMENDATIONS: * Calibrated bedscale wt Add ENSURE ENLIVE TID w/ meals & * Wound healing: continue MVI x 1, Vit C 500mg QD : Add Crispin 1pkt BID * Consider PEG vs NGT feeding if pt receptive and part of POC : pt is combative and agitated * SIGNING AGENT eval for appropriate texture
--- NOTE | 2018-04-17 19:39 | NUR ---
HAND-OFF: Report given to Ms.Nourollah RN RESTING COMFORTABLY IN BED, NO SIGN OF DISTRESS, IVF ON GOING ANISH MOSHER.
[2018-04-17 20:00] VITALS: BP 144/94
--- NOTE | 2018-04-17 20:08 | NUR ---
NURSE NOTES: patient received. patient in no acute distress at this time. patient appears to be in no pain at this time. patient awake and alert x1. name only. legally blind and sign above bed. IV intact and asymptomatic. bed in lowest position and locked. call light within reach. will continue to monitor.
--- NOTE | 2018-04-17 20:20 | General Progress Note ---
Assessment/Plan Assessment/Plan Assessment (1) Dysphasia (2) Encounter for PEG (percutaneous endoscopic gastrostomy) (3) Schizophrenia (4) Failure to thrive in adult (5) Generalized weakness (6) Severe malnutrition (7) Dehydration Plan psych f/u Will consider PEG pending workup. Speech therapist evaluation pending rule out dysphagia Calorie count in progress see if nutritional needs are met Patient on regular diet One-to-one feeder IV/p.o. hydration Antibiotics PPI Follow-up labs Subjective Allergies: Coded Allergies: BENZTROPINE (Unverified Allergy, Unknown, 02/22/14) HALOPERIDOL (Unverified Allergy, Unknown, 02/22/14) PENICILLINS (Unverified Allergy, Unknown, 04/14/18) tolerated Ceftriaxone 06/2017 Subjective less agitated today Objective Last 24 Hour Vital Signs Date Time Temp Pulse Resp B/P (MAP) Pulse Ox O2 Delivery O2 Flow Rate FiO2 04/17/18 12:00 98.3 109 24 141/91 (108) 96 04/17/18 08:17 107 131/92 04/17/18 08:10 Room Air 04/17/18 04:00 98.2 107 19 131/92 (105) 96 04/17/18 00:00 98.5 101 18 135/74 (94) 96 04/16/18 21:00 Room Air Intake and Output 04/16/18 04/17/18 19:00 07:00 Intake Total 1070.000 ml 1348.334 ml Balance 1070.000 ml 1348.334 ml Intake Oral 360 ml 120 ml IV Total 710.000 ml 1228.334 ml # Voids 1 2 Laboratory Tests 04/17/18 14:15: C-Reactive Protein, Quantitative 17.3H, Vancomycin Level Trough 13.0H Height (Feet): 5 Height (Inches): 10.00 Weight (Pounds): 157 Objective R facial trauma CTA Kati Colon MD Apr 17, 2018 20:20
[2018-04-17] MEDS: Tamsulosin 0.4mg cap ORAL SCH ×2 (20:47→21:00)
[2018-04-17] MEDS: Valproic Acid 250mg/5ml Liquid ORAL SCH ×2 (20:50→21:00)
[2018-04-17] MEDS: D5NS 1,000 ML IV SCH (20:51)
[2018-04-18] VITALS: BP 157/103
--- NOTE | 2018-04-18 01:27 | General Progress Note ---
Assessment/Plan Problem List: (1) Schizophrenia ICD Codes: F20.9 - Schizophrenia, unspecified SNOMED: 08178104 (2) Failure to thrive in adult ICD Codes: R62.7 - Adult failure to thrive SNOMED: 483945198 Status: unchanged Assessment/Plan seroquel 100mg tid prolexin dec IM ativan Im Recommend hospice placement. Subjective Neurologic/Psychiatric: Reports: anxiety, depressed Allergies: Coded Allergies: BENZTROPINE (Unverified Allergy, Unknown, 02/22/14) HALOPERIDOL (Unverified Allergy, Unknown, 02/22/14) PENICILLINS (Unverified Allergy, Unknown, 04/14/18) tolerated Ceftriaxone 06/2017 Subjective the pt is agitated Objective Last 24 Hour Vital Signs Date Time Temp Pulse Resp B/P (MAP) Pulse Ox O2 Delivery O2 Flow Rate FiO2 04/17/18 21:00 Room Air 04/17/18 20:00 98.1 106 20 144/94 (111) 99 04/17/18 12:00 98.3 109 24 141/91 (108) 96 04/17/18 08:17 107 131/92 04/17/18 08:10 Room Air 04/17/18 04:00 98.2 107 19 131/92 (105) 96 Intake and Output 04/17/18 04/18/18 19:00 07:00 Intake Total 1184.667 ml Balance 1184.667 ml Intake Oral 350 ml IV Total 834.667 ml # Voids 1 Laboratory Tests 04/17/18 14:15: C-Reactive Protein, Quantitative 17.3H, Vancomycin Level Trough 13.0H Height (Feet): 5 Height (Inches): 10.00 Weight (Pounds): 157 General Appearance: no apparent distress, alert, confused, agitated Nathaniel Davis MD Apr 18, 2018 01:27
[2018-04-18] MEDS: Vancomycin 1250mg/D5W 250ml IVPB SCH ×2 (03:21→15:52)
[2018-04-18 04:00] VITALS: BP 128/95
[2018-04-18] MEDS: Aztreonam Inj 2 GM in D5W 110 ML IVPB SCH ×4 (05:33→22:46)
[2018-04-18 07:01] LABS: BASOPHILS % (AUTO) 1.7 % (0.0-2.0); EOSINOPHILS % (AUTO) 0.3 % (0.0-3.0); HEMATOCRIT 38.5 % (42.0-52.0); HEMOGLOBIN 12.8 G/DL (14.2-18.0); LYMPHOCYTES % (AUTO) 47.4 % (20.0-45.0); MEAN CORPUSCULAR VOLUME 88 FL (80-99); MONOCYTES % (AUTO) 6.3 % (1.0-10.0); NEUTROPHILS % (AUTO) 44.3 % (45.0-75.0); PLATELET COUNT 377 K/UL (150-450); RED BLOOD COUNT 4.38 M/UL (4.70-6.10); RED CELL DISTRIBUTION WIDTH 14.3 % (11.6-14.8); WHITE BLOOD COUNT 9.2 K/UL (4.8-10.8)
--- NOTE | 2018-04-18 07:06 | NUR ---
HAND-OFF: Report given to ANISH Becerra.
[2018-04-18 07:30] LABS: ALANINE AMINOTRANSFERASE 21 U/L (12-78); ALBUMIN 2.7 G/DL (3.4-5.0); ALBUMIN/GLOBULIN RATIO 0.7 (1.0-2.7); ALKALINE PHOSPHATASE 79 U/L (46-116); ANION GAP 14 mmol/L (5-15); ASPARTATE AMINO TRANSFERASE 28 U/L (15-37); BILIRUBIN,TOTAL 0.3 MG/DL (0.2-1.0); BLOOD UREA NITROGEN 8 mg/dL (7-18); CARBON DIOXIDE 23 MMOL/L (21-32); CHLORIDE 105 MMOL/L (98-107); CREATININE 0.9 MG/DL (0.55-1.30); GAMMA GLUTAMYL TRANSPEPTIDASE 17 U/L (5-85); PHOSPHORUS 2.9 MG/DL (2.5-4.9); POTASSIUM 2.9 MMOL/L (3.5-5.1); SODIUM 142 MMOL/L (136-145)
--- NOTE | 2018-04-18 07:30 | NUR ---
NURSE NOTES: received patient in bed, patient awake,confused combative at this time , no sign of distress, IVF patent and infusing well, on fall precaution observed and maintained, both side rails up for safety, plan of care was discussed , needs reinforcement , will continue to monitor patient condition zackery torres
[2018-04-18 08:10] VITALS: BP 158/95
[2018-04-18] MEDS: Heparin 5000 units/ml inj SUBQ SCH ×2 (08:32→21:18)
[2018-04-18] MEDS: Aspirin Baby 81mg ORAL SCH (08:33)
[2018-04-18] MEDS: Ascorbic Acid 500mg tab ORAL SCH (08:33)
[2018-04-18] MEDS: Zinc Sulfate 220mg cap ORAL SCH (08:33)
[2018-04-18] MEDS: Pantoprazole Inj IVP SCH (08:33)
[2018-04-18] MEDS: D5NS 1,000 ML IV SCH ×2 (11:22→14:03)
--- NOTE | 2018-04-18 12:01 | Nephrology Progress Note ---
Assessment/Plan Problem List: (1) Dehydration (2) HTN (hypertension) (3) Failure to thrive in adult (4) Schizophrenia Assessment (1) Dysphasia (2) Encounter for PEG (percutaneous endoscopic gastrostomy) (3) Schizophrenia (4) Failure to thrive in adult (5) Generalized weakness (6) Severe malnutrition (7) Dehydration (8) Schizophrenia (9) HTN (10) Legally Blind Plan down on IV Fluids rate Flomax Psych mangement per consultants check labs K supplement Subjective ROS Limited/Unobtainable: No Constitutional: Reports: malaise Objective Objective Last 24 Hour Vital Signs Date Time Temp Pulse Resp B/P (MAP) Pulse Ox O2 Delivery O2 Flow Rate FiO2 04/18/18 08:33 104 128/95 04/18/18 08:15 Room Air 04/18/18 08:10 97.7 99 20 158/95 (116) 98 04/18/18 04:00 98.5 104 20 128/95 (106) 99 04/18/18 00:00 98.2 103 20 157/103 (121) 100 04/17/18 21:00 Room Air 04/17/18 20:00 98.1 106 20 144/94 (111) 99 04/17/18 12:00 98.3 109 24 141/91 (108) 96 Intake and Output 04/17/18 04/18/18 18:59 06:59 Intake Total 1259.667 ml 50 ml Balance 1259.667 ml 50 ml Intake Oral 350 ml 50 ml IV Total 909.667 ml # Voids 1 Laboratory Tests 04/17/18 14:15: C-Reactive Protein, Quantitative 17.3H, Vancomycin Level Trough 13.0H 04/18/18 04:50: White Blood Count 9.2, Red Blood Count 4.38L, Hemoglobin 12.8L, Hematocrit 38.5L , Mean Corpuscular Volume 88, Mean Corpuscular Hemoglobin 29.3, Mean Corpuscular Hemoglobin Concent 33.4, Red Cell Distribution Width 14.3, Platelet Count 377, Mean Platelet Volume 6.2L, Neutrophils (%) (Auto) 44.3L, Lymphocytes (%) (Auto) 47.4H, Monocytes (%) (Auto) 6.3, Eosinophils (%) (Auto) 0.3, Basophils (%) (Auto) 1.7, Sodium Level 142, Potassium Level 2.9L, Chloride Level 105, Carbon Dioxide Level 23, Anion Gap 14, Blood Urea Nitrogen 8, Creatinine 0.9, Estimat Glomerular Filtration Rate > 60, Glucose Level 141H, Uric Acid 4.4, Calcium Level 9.0, Phosphorus Level 2.9, Magnesium Level 1.9, Total Bilirubin 0.3, Gamma Glutamyl Transpeptidase 17, Aspartate Amino Transf ( AST/SGOT) 28, Alanine Aminotransferase (ALT/SGPT) 21, Alkaline Phosphatase 79, Pro-B-Type Natriuretic Peptide 738H, Total Protein 6.8, Albumin 2.7L, Globulin 4.1, Albumin/Globulin Ratio 0.7L, Vitamin B12 Level 971, Folate 18.7, Thyroid Stimulating Hormone (TSH) 1.788 Height (Feet): 5 Height (Inches): 10.00 Weight (Pounds): 157 General Appearance: no apparent distress Objective no change Al Roper MD Apr 18, 2018 12:01
[2018-04-18 12:10] VITALS: BP 141/90
[2018-04-18 16:04] VITALS: BP 139/85
[2018-04-18] MEDS ORDERED: NS 500ML ONE (17:39)
[2018-04-18] MEDS ORDERED: D5NS 1000ml IV ONE (17:39)
[2018-04-18] MEDS ORDERED: Tubing IV Secondary IV ONE (17:39)
--- NOTE | 2018-04-18 18:14 | NUR ---
nurse notes refused to eat solid food, able to take all his po meds, crushed like a powder mix with apple juice, tolerated well zackery torres
--- NOTE | 2018-04-18 19:22 | General Progress Note ---
Assessment/Plan Assessment/Plan Assessment (1) Dysphasia/anorexia (2) Encounter for PEG (percutaneous endoscopic gastrostomy) (3) Schizophrenia (4) Failure to thrive in adult (5) Generalized weakness (6) Severe malnutrition (7) Dehydration Plan psych f/u Will consider PEG pending workup. Calorie count in progress see if nutritional needs are met Patient on regular diet One-to-one feeder IV/p.o. hydration Antibiotics PPI Follow-up labs Subjective Allergies: Coded Allergies: BENZTROPINE (Unverified Allergy, Unknown, 02/22/14) HALOPERIDOL (Unverified Allergy, Unknown, 02/22/14) PENICILLINS (Unverified Allergy, Unknown, 04/14/18) tolerated Ceftriaxone 06/2017 Subjective less agitated today still mumbling Objective Last 24 Hour Vital Signs Date Time Temp Pulse Resp B/P (MAP) Pulse Ox O2 Delivery O2 Flow Rate FiO2 04/18/18 16:04 97.9 96 19 139/85 (103) 99 04/18/18 12:10 98.1 99 19 141/90 (107) 98 04/18/18 08:33 104 128/95 04/18/18 08:15 Room Air 04/18/18 08:10 97.7 99 20 158/95 (116) 98 04/18/18 04:00 98.5 104 20 128/95 (106) 99 04/18/18 00:00 98.2 103 20 157/103 (121) 100 04/17/18 21:00 Room Air 04/17/18 20:00 98.1 106 20 144/94 (111) 99 Intake and Output 04/17/18 04/18/18 19:00 07:00 Intake Total 1184.667 ml 216.67 ml Balance 1184.667 ml 216.67 ml Intake Oral 350 ml 50 ml IV Total 834.667 ml 166.67 ml # Voids 1 Laboratory Tests 04/18/18 04:50: White Blood Count 9.2, Red Blood Count 4.38L, Hemoglobin 12.8L, Hematocrit 38.5L , Mean Corpuscular Volume 88, Mean Corpuscular Hemoglobin 29.3, Mean Corpuscular Hemoglobin Concent 33.4, Red Cell Distribution Width 14.3, Platelet Count 377, Mean Platelet Volume 6.2L, Neutrophils (%) (Auto) 44.3L, Lymphocytes (%) (Auto) 47.4H, Monocytes (%) (Auto) 6.3, Eosinophils (%) (Auto) 0.3, Basophils (%) (Auto) 1.7, Sodium Level 142, Potassium Level 2.9L, Chloride Level 105, Carbon Dioxide Level 23, Anion Gap 14, Blood Urea Nitrogen 8, Creatinine 0.9, Estimat Glomerular Filtration Rate > 60, Glucose Level 141H, Uric Acid 4.4, Calcium Level 9.0, Phosphorus Level 2.9, Magnesium Level 1.9, Total Bilirubin 0.3, Gamma Glutamyl Transpeptidase 17, Aspartate Amino Transf ( AST/SGOT) 28, Alanine Aminotransferase (ALT/SGPT) 21, Alkaline Phosphatase 79, Pro-B-Type Natriuretic Peptide 738H, Total Protein 6.8, Albumin 2.7L, Globulin 4.1, Albumin/Globulin Ratio 0.7L, Vitamin B12 Level 971, Folate 18.7, Thyroid Stimulating Hormone (TSH) 1.788 Height (Feet): 5 Height (Inches): 10.00 Weight (Pounds): 157 Objective R facial trauma CTA RR Kati Buck MD Apr 18, 2018 19:22
--- NOTE | 2018-04-18 19:24 | NUR ---
HAND-OFF: Report given to MS AJAY RN RESTING COMFORTABLY IN BED, PATIENT STABLE AND FREE FROM INJURY, ANISH MOSHER
--- NOTE | 2018-04-18 20:00 | NUR ---
NURSE NOTES: Patient received in bed, awake, talking to himself, appears to be in no acute distress at this time. IV is intact and patent, IVF infusing. Patient refused to have it changed at this time, yelling. Patient redirected and calmed. Continued to talk incoherently. Call light in reach, will continue to monitor.
[2018-04-18] MEDS: Tamsulosin 0.4mg cap ORAL SCH (21:11)
[2018-04-18] MEDS: Valproic Acid 250mg/5ml Liquid ORAL SCH (21:11)
--- NOTE | 2018-04-18 22:14 | General Progress Note ---
Assessment/Plan Problem List: (1) Cancer ICD Codes: C80.1 - Malignant (primary) neoplasm, unspecified SNOMED: 224372027 (2) Generalized weakness ICD Codes: R53.1 - Weakness SNOMED: 94543579 (3) Severe malnutrition ICD Codes: E43 - Unspecified severe protein-calorie malnutrition SNOMED: 73603087 (4) Failure to thrive in adult ICD Codes: R62.7 - Adult failure to thrive SNOMED: 857191071 (5) Poor fluid intake ICD Codes: R63.8 - Other symptoms and signs concerning food and fluid intake SNOMED: 084652950 (6) Schizophrenia ICD Codes: F20.9 - Schizophrenia, unspecified SNOMED: 41154698 Status: progressing Assessment/Plan FTT poor appetite reviewed chart and labs cancer pt psych malnutrition weak and debilitated diet and feeding per gi Subjective ROS Limited/Unobtainable: Yes Allergies: Coded Allergies: BENZTROPINE (Unverified Allergy, Unknown, 02/22/14) HALOPERIDOL (Unverified Allergy, Unknown, 02/22/14) PENICILLINS (Unverified Allergy, Unknown, 04/14/18) tolerated Ceftriaxone 06/2017 Objective Last 24 Hour Vital Signs Date Time Temp Pulse Resp B/P (MAP) Pulse Ox O2 Delivery O2 Flow Rate FiO2 04/18/18 21:00 Room Air 04/18/18 16:04 97.9 96 19 139/85 (103) 99 04/18/18 12:10 98.1 99 19 141/90 (107) 98 04/18/18 08:33 104 128/95 04/18/18 08:15 Room Air 04/18/18 08:10 97.7 99 20 158/95 (116) 98 04/18/18 04:00 98.5 104 20 128/95 (106) 99 04/18/18 00:00 98.2 103 20 157/103 (121) 100 Intake and Output 04/17/18 04/18/18 19:00 07:00 Intake Total 1184.667 ml 216.67 ml Balance 1184.667 ml 216.67 ml Intake Oral 350 ml 50 ml IV Total 834.667 ml 166.67 ml # Voids 1 Laboratory Tests 04/18/18 04:50: White Blood Count 9.2, Red Blood Count 4.38L, Hemoglobin 12.8L, Hematocrit 38.5L , Mean Corpuscular Volume 88, Mean Corpuscular Hemoglobin 29.3, Mean Corpuscular Hemoglobin Concent 33.4, Red Cell Distribution Width 14.3, Platelet Count 377, Mean Platelet Volume 6.2L, Neutrophils (%) (Auto) 44.3L, Lymphocytes (%) (Auto) 47.4H, Monocytes (%) (Auto) 6.3, Eosinophils (%) (Auto) 0.3, Basophils (%) (Auto) 1.7, Sodium Level 142, Potassium Level 2.9L, Chloride Level 105, Carbon Dioxide Level 23, Anion Gap 14, Blood Urea Nitrogen 8, Creatinine 0.9, Estimat Glomerular Filtration Rate > 60, Glucose Level 141H, Uric Acid 4.4, Calcium Level 9.0, Phosphorus Level 2.9, Magnesium Level 1.9, Total Bilirubin 0.3, Gamma Glutamyl Transpeptidase 17, Aspartate Amino Transf ( AST/SGOT) 28, Alanine Aminotransferase (ALT/SGPT) 21, Alkaline Phosphatase 79, Pro-B-Type Natriuretic Peptide 738H, Total Protein 6.8, Albumin 2.7L, Globulin 4.1, Albumin/Globulin Ratio 0.7L, Vitamin B12 Level 971, Folate 18.7, Thyroid Stimulating Hormone (TSH) 1.788 Height (Feet): 5 Height (Inches): 10.00 Weight (Pounds): 157 Cardiovascular: normal rate Respiratory/Chest: lungs clear Abdomen: soft Cady Berg MD Apr 18, 2018 22:14
--- NOTE | 2018-04-18 22:17 | General Progress Note ---
Assessment/Plan Assessment/Plan # Leukocytosis. Secondary to underlying infection, sepsis --> Monitor and trend wbc for improvement --> Peripheral smear has been reviewed, no blasts noted --> Medications have been reviewed --> Imaging has been reviewed --> Blood cultures and urine cultures prn --> has been started on abx, empiric treatment --> trend 32k-->9k --> per ID management # Anemia of chronic disease --> anemia panel has been reviewed # FTT. # Sepsis. 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 # COPD. # Dysphasia # Schizophrenia # HTN. # Legally blind GREATLY APPRECIATE CONSULTATION. Time and date note entered in EMR does not reflect time and date of encounter. Subjective Constitutional: Denies: no symptoms, chills, diaphoresis, fever, malaise, weakness, other HEENT: Denies: no symptoms, eye pain, blurred vision, tearing, double vision, ear pain, ear discharge, nose pain, nose congestion, throat pain, throat swelling, mouth pain, mouth swelling, other Cardiovascular: Denies: no symptoms, chest pain, edema, irregular heart rate, lightheadedness, palpitations, syncope, other Respiratory: Denies: no symptoms, cough, orthopnea, shortness of breath, SOB with excertion, SOB at rest, sputum, stridor, wheezing, other Gastrointestinal/Abdominal: Denies: no symptoms, abdomen distended, abdominal pain, black stools, tarry stools, blood in stool, constipated, diarrhea, difficulty swallowing, nausea, poor appetite, poor fluid intake, rectal bleeding , vomiting, other Genitourinary: Denies: no symptoms, burning, discharge, frequency, flank pain, hematuria, incontinence, pain, urgency, other Neurologic/Psychiatric: Denies: no symptoms, anxiety, depressed, emotional problems, headache, numbness, paresthesia, pre-existing deficit, seizure, tingling, tremors, weakness, other Allergies: Coded Allergies: BENZTROPINE (Unverified Allergy, Unknown, 02/22/14) HALOPERIDOL (Unverified Allergy, Unknown, 02/22/14) PENICILLINS (Unverified Allergy, Unknown, 04/14/18) tolerated Ceftriaxone 06/2017 Subjective 04/15: Pt awake and agitated. No acute events. Pt refusing meds. 04/16: wbc severely elevated, seen by Id, on broad spectrum antifungals, foul language, very aggressive 04/18: no events, mumbling, minimally conversive, no fevers, down on ivf Objective Last 24 Hour Vital Signs Date Time Temp Pulse Resp B/P (MAP) Pulse Ox O2 Delivery O2 Flow Rate FiO2 04/18/18 21:00 Room Air 04/18/18 16:04 97.9 96 19 139/85 (103) 99 04/18/18 12:10 98.1 99 19 141/90 (107) 98 04/18/18 08:33 104 128/95 04/18/18 08:15 Room Air 04/18/18 08:10 97.7 99 20 158/95 (116) 98 04/18/18 04:00 98.5 104 20 128/95 (106) 99 04/18/18 00:00 98.2 103 20 157/103 (121) 100 Intake and Output 04/17/18 04/18/18 19:00 07:00 Intake Total 1184.667 ml 216.67 ml Balance 1184.667 ml 216.67 ml Intake Oral 350 ml 50 ml IV Total 834.667 ml 166.67 ml # Voids 1 Laboratory Tests 04/18/18 04:50: White Blood Count 9.2, Red Blood Count 4.38L, Hemoglobin 12.8L, Hematocrit 38.5L , Mean Corpuscular Volume 88, Mean Corpuscular Hemoglobin 29.3, Mean Corpuscular Hemoglobin Concent 33.4, Red Cell Distribution Width 14.3, Platelet Count 377, Mean Platelet Volume 6.2L, Neutrophils (%) (Auto) 44.3L, Lymphocytes (%) (Auto) 47.4H, Monocytes (%) (Auto) 6.3, Eosinophils (%) (Auto) 0.3, Basophils (%) (Auto) 1.7, Sodium Level 142, Potassium Level 2.9L, Chloride Level 105, Carbon Dioxide Level 23, Anion Gap 14, Blood Urea Nitrogen 8, Creatinine 0.9, Estimat Glomerular Filtration Rate > 60, Glucose Level 141H, Uric Acid 4.4, Calcium Level 9.0, Phosphorus Level 2.9, Magnesium Level 1.9, Total Bilirubin 0.3, Gamma Glutamyl Transpeptidase 17, Aspartate Amino Transf ( AST/SGOT) 28, Alanine Aminotransferase (ALT/SGPT) 21, Alkaline Phosphatase 79, Pro-B-Type Natriuretic Peptide 738H, Total Protein 6.8, Albumin 2.7L, Globulin 4.1, Albumin/Globulin Ratio 0.7L, Vitamin B12 Level 971, Folate 18.7, Thyroid Stimulating Hormone (TSH) 1.788 Height (Feet): 5 Height (Inches): 10.00 Weight (Pounds): 157 Objective Vitals: Have been reviewed General Appearance: alert, agitated Head: normocephalic, atraumatic Eyes: right eye abnormal pupil - right eye has patch which covers the right temporal area of face as well from cancer ressection; left eye other - visible cataract, glassy/hazy appearance ENT: hearing grossly normal, other Neck: full range of motion Respiratory: chest non-tender, lungs clear, normal breath sounds, speaking full sentences Cardiovascular no edema, tachycardia Gastrointestinal: normal bowel sounds, non tender, soft Musculoskeletal: back normal, non-tender, other - bilateral hand contractures Skin: normal color, no rash, warm/dry Jr Daly MD Apr 18, 2018 22:17
--- NOTE | 2018-04-19 02:20 | NUR ---
NURSE NOTES: Patient appeared very restless, almost hitting his arms on the siderails, refused to be repositoned in bed, yelling incoherently. Patient given PRN ativan IM.
[2018-04-19] MEDS: LORazepam Inj 2mg/ml 1ml IM PRN ×2 (02:21→21:21)
[2018-04-19] MEDS: Vancomycin 1250mg/D5W 250ml IVPB SCH ×2 (02:29→17:02)
[2018-04-19 04:00] VITALS: BP 115/74
[2018-04-19] MEDS: Aztreonam Inj 2 GM in D5W 110 ML IVPB SCH ×3 (05:14→21:37)
--- NOTE | 2018-04-19 07:25 | NUR ---
HAND-OFF: Report given to Brandon OCONNELL.
--- NOTE | 2018-04-19 07:27 | NUR ---
NURSE NOTES: Received patient from Reynaldo RN, patient is resting in bed, patient refused to be cleaned this morning, will continue to attempt cleaning, no distress noted, bed is locked and in lowest position, will continue to monitor.
[2018-04-19 08:00] VITALS: BP 122/78
[2018-04-19] MEDS: Ascorbic Acid 500mg tab ORAL SCH (08:59)
[2018-04-19] MEDS: Aspirin Baby 81mg ORAL SCH (08:59)
[2018-04-19] MEDS: Zinc Sulfate 220mg cap ORAL SCH (08:59)
[2018-04-19] MEDS: Heparin 5000 units/ml inj SUBQ SCH ×2 (09:00→21:00)
[2018-04-19] MEDS: D5NS 1,000 ML IV SCH (09:03)
--- NOTE | 2018-04-19 09:48 | Infectious Diseases Prog Note ---
Assessment/Plan Assessment/Plan Sepsis- ?source- r/o UTI, PNA Afebrile Leukocytosis, increased ? 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 Wnd Cx : GPC -hx of superinfected necrotic mass and possible micro abscess s/p Tx 06/2017 -wound cx MRSA, diphterouids, ESBL Proteus FTT COPD dysphasia schizophrenia HTN MDD legally blind hx of VRE/MRSA colonization Plan: - Continue empiric Azactam , Flagyl and IV Vanco d# 5/7-10 - 04/15/18 SP Ceftriaxone d# 2 -f/u cx -Monitor CBC/CMP, temperatures -Ophthalmology/surgery consult if patient want aggressive Tx. If leukocytosis continues to increase will MRI of eyes Subjective Allergies: Coded Allergies: BENZTROPINE (Unverified Allergy, Unknown, 02/22/14) HALOPERIDOL (Unverified Allergy, Unknown, 02/22/14) PENICILLINS (Unverified Allergy, Unknown, 04/14/18) tolerated Ceftriaxone 06/2017 Subjective Afebrile Leukocytosis resolved CRISTIANA Objective Vital Signs Last 24 Hour Vital Signs Date Time Temp Pulse Resp B/P (MAP) Pulse Ox O2 Delivery O2 Flow Rate FiO2 04/19/18 08:59 95 122/78 04/19/18 04:00 97.5 96 19 115/74 (88) 98 04/18/18 21:00 Room Air 04/18/18 16:04 97.9 96 19 139/85 (103) 99 04/18/18 12:10 98.1 99 19 141/90 (107) 98 Height (Feet): 5 Height (Inches): 10.00 Weight (Pounds): 163 Objective General: NAD, Irritable HEENT: NCAT, right eye has patch which covers the right temporal area of face as well, left eye - visible cataract, glassy/hazy appearance Respiratory: CATB, No W/C Cardiovascular no edema, tachycardia Gastrointestinal: normal bowel sounds, non tender, soft Musculoskeletal: back normal, non-tender, other - bilateral hand contractures Current Medications Medications (Trade) Dose Ordered Sig/Jordi Route PRN Reason Start Time Stop Time Status Last Admin Dose Admin Amlodipine Besylate (Norvasc) 5 mg DAILY ORAL 04/14/18 09:00 05/14/18 08:59 04/19/18 08:59 Ascorbic Acid (Vitamin C) 500 mg DAILY ORAL 04/14/18 09:00 05/14/18 08:59 04/19/18 08:59 Aspirin (ASA) 81 mg DAILY ORAL 04/14/18 09:00 05/14/18 08:59 04/19/18 08:59 Aztreonam 2 gm/ Dextrose 110 ml @ 220 mls/hr Q8HR IVPB 04/15/18 14:00 04/22/18 13:59 04/19/18 05:14 Dextrose/Sodium Chloride 1,000 ml @ 50 mls/hr Q20H IV 04/18/18 13:30 05/16/18 13:29 04/19/18 09:03 Famotidine (Pepcid) 20 mg BID ORAL 04/18/18 18:00 05/18/18 17:59 04/19/18 08:59 Heparin Sodium (Porcine) (Heparin 5000 units/ml) 5,000 units EVERY 12 HOURS SUBQ 04/14/18 09:00 05/14/18 08:59 04/18/18 21:18 Lorazepam (Ativan 2mg/ml 1ml) 2 mg Q4H PRN IM For Anxiety 04/14/18 10:00 04/21/18 09:59 04/19/18 02:21 Metronidazole 100 ml @ 100 mls/hr Q8HR IVPB 04/15/18 22:00 04/22/18 21:59 04/19/18 05:48 Multivitamins (Multivitamins) 1 tab DAILY ORAL 04/14/18 09:00 05/14/18 08:59 04/19/18 08:58 Quetiapine Fumarate (SEROquel) 100 mg EVERY 8 HOURS ORAL 04/14/18 10:00 05/14/18 09:59 04/19/18 05:12 Tamsulosin HCl (Flomax) 0.4 mg BEDTIME ORAL 04/16/18 21:00 05/16/18 20:59 04/18/18 21:11 Valproic Acid (Depakene) 1,000 mg BEDTIME ORAL 04/16/18 21:00 05/16/18 20:59 04/18/18 21:11 Vancomycin HCl (Vanco rx to dose) 1 ea DAILY PRN MISC Per rx protocol 04/15/18 12:45 05/15/18 12:44 Vancomycin HCl/ Dextrose 250 ml @ 166.667 mls/hr Q12H IVPB 04/16/18 03:00 04/21/18 02:59 04/19/18 02:29 Zinc Sulfate (Zinc Sulfate) 220 mg DAILY ORAL 04/14/18 09:00 05/14/18 08:59 04/19/18 08:59 Jozef Greene MD Apr 19, 2018 09:48
[2018-04-19 12:00] VITALS: BP 143/84
--- NOTE | 2018-04-19 12:47 | General Progress Note ---
Assessment/Plan Problem List: (1) Schizophrenia ICD Codes: F20.9 - Schizophrenia, unspecified SNOMED: 21223748 (2) Failure to thrive in adult ICD Codes: R62.7 - Adult failure to thrive SNOMED: 690964121 Status: stable Assessment/Plan seroquel 100mg tid prolexin dec IM ativan Im Recommend hospice placement. Subjective Neurologic/Psychiatric: Reports: anxiety, depressed, emotional problems Allergies: Coded Allergies: BENZTROPINE (Unverified Allergy, Unknown, 02/22/14) HALOPERIDOL (Unverified Allergy, Unknown, 02/22/14) PENICILLINS (Unverified Allergy, Unknown, 04/14/18) tolerated Ceftriaxone 06/2017 Subjective the pt is agitated at times responds to internal stimuli and is delusional. no si/hi Objective Last 24 Hour Vital Signs Date Time Temp Pulse Resp B/P (MAP) Pulse Ox O2 Delivery O2 Flow Rate FiO2 04/19/18 12:00 97.7 82 18 143/84 (103) 100 04/19/18 09:00 Room Air 04/19/18 08:59 95 122/78 04/19/18 08:00 97.0 95 19 122/78 (93) 99 04/19/18 04:00 97.5 96 19 115/74 (88) 98 04/18/18 21:00 Room Air 04/18/18 16:04 97.9 96 19 139/85 (103) 99 Intake and Output 04/18/18 04/19/18 18:59 06:59 Intake Total 1676.34 ml 1045.000 ml Balance 1676.34 ml 1045.000 ml Intake Oral 450 ml IV Total 1226.34 ml 1045.000 ml # Voids 2 2 # Bowel Movements 1 1 Height (Feet): 5 Height (Inches): 10.00 Weight (Pounds): 163 General Appearance: alert, moderate distress, agitated Neurologic: disoriented Nathaniel Davis MD Apr 19, 2018 12:47
[2018-04-19 16:00] VITALS: BP 145/73
--- NOTE | 2018-04-19 16:29 | Nephrology Progress Note ---
Assessment/Plan Problem List: (1) Dehydration (2) HTN (hypertension) (3) Failure to thrive in adult (4) Schizophrenia Assessment (1) Dysphasia (2) Encounter for PEG (percutaneous endoscopic gastrostomy) (3) Schizophrenia (4) Failure to thrive in adult (5) Generalized weakness (6) Severe malnutrition (7) Dehydration (8) Schizophrenia (9) HTN (10) Legally Blind Plan no labs today- check in am down on IV Fluids rate Flomax Psych mangement per consultants check labs K supplement Subjective ROS Limited/Unobtainable: No Objective Objective Last 24 Hour Vital Signs Date Time Temp Pulse Resp B/P (MAP) Pulse Ox O2 Delivery O2 Flow Rate FiO2 04/19/18 12:00 97.7 82 18 143/84 (103) 100 04/19/18 09:00 Room Air 04/19/18 08:59 95 122/78 04/19/18 08:00 97.0 95 19 122/78 (93) 99 04/19/18 04:00 97.5 96 19 115/74 (88) 98 04/18/18 21:00 Room Air Intake and Output 04/18/18 04/19/18 18:59 06:59 Intake Total 1676.34 ml 1045.000 ml Balance 1676.34 ml 1045.000 ml Intake Oral 450 ml IV Total 1226.34 ml 1045.000 ml # Voids 2 2 # Bowel Movements 1 1 Height (Feet): 5 Height (Inches): 10.00 Weight (Pounds): 163 General Appearance: no apparent distress Cardiovascular: normal rate Respiratory/Chest: lungs clear Objective no change Al Roper MD Apr 19, 2018 16:29
--- NOTE | 2018-04-19 17:37 | General Progress Note ---
Assessment/Plan Problem List: (1) Cancer ICD Codes: C80.1 - Malignant (primary) neoplasm, unspecified SNOMED: 088598786 (2) Generalized weakness ICD Codes: R53.1 - Weakness SNOMED: 59182870 (3) Severe malnutrition ICD Codes: E43 - Unspecified severe protein-calorie malnutrition SNOMED: 38827067 (4) Failure to thrive in adult ICD Codes: R62.7 - Adult failure to thrive SNOMED: 662961019 (5) Poor fluid intake ICD Codes: R63.8 - Other symptoms and signs concerning food and fluid intake SNOMED: 077165876 (6) Schizophrenia ICD Codes: F20.9 - Schizophrenia, unspecified SNOMED: 38284476 Status: progressing Assessment/Plan FTT poor appetite psych patient afebrile vitals stable reviewed chart and meds Subjective ROS Limited/Unobtainable: Yes Allergies: Coded Allergies: BENZTROPINE (Unverified Allergy, Unknown, 02/22/14) HALOPERIDOL (Unverified Allergy, Unknown, 02/22/14) PENICILLINS (Unverified Allergy, Unknown, 04/14/18) tolerated Ceftriaxone 06/2017 Objective Last 24 Hour Vital Signs Date Time Temp Pulse Resp B/P (MAP) Pulse Ox O2 Delivery O2 Flow Rate FiO2 04/19/18 16:00 97.5 110 20 145/73 (97) 97 04/19/18 12:00 97.7 82 18 143/84 (103) 100 04/19/18 09:00 Room Air 04/19/18 08:59 95 122/78 04/19/18 08:00 97.0 95 19 122/78 (93) 99 04/19/18 04:00 97.5 96 19 115/74 (88) 98 04/18/18 21:00 Room Air Intake and Output 04/18/18 04/19/18 18:59 06:59 Intake Total 1676.34 ml 1045.000 ml Balance 1676.34 ml 1045.000 ml Intake Oral 450 ml IV Total 1226.34 ml 1045.000 ml # Voids 2 2 # Bowel Movements 1 1 Height (Feet): 5 Height (Inches): 10.00 Weight (Pounds): 163 Neck: supple Cardiovascular: normal rate Respiratory/Chest: lungs clear Cady Berg MD Apr 19, 2018 17:37
--- NOTE | 2018-04-19 19:30 | NUR ---
NURSE NOTES: Received patient on bed awake, no s/s of any distress, denies any pain as of this time. IV line patent and intact, Bed in low position and locked, will continue to monitor.
--- NOTE | 2018-04-19 19:32 | NUR ---
HAND-OFF: Report given to Francisco Javier OCONNELL.
[2018-04-19 20:00] VITALS: BP 133/79
[2018-04-19] MEDS: Tamsulosin 0.4mg cap ORAL SCH (21:00)
--- NOTE | 2018-04-19 21:40 | General Progress Note ---
Assessment/Plan Assessment/Plan Assessment (1) Dysphasia/anorexia (2) Encounter for PEG (percutaneous endoscopic gastrostomy) (3) Schizophrenia (4) Failure to thrive in adult (5) Generalized weakness (6) Severe malnutrition (7) Dehydration Plan psych f/u Will consider PEG pending workup. Calorie count in progress see if nutritional needs are met Patient on regular diet One-to-one feeder IV/p.o. hydration Antibiotics PPI Follow-up labs Subjective Allergies: Coded Allergies: BENZTROPINE (Unverified Allergy, Unknown, 02/22/14) HALOPERIDOL (Unverified Allergy, Unknown, 02/22/14) PENICILLINS (Unverified Allergy, Unknown, 04/14/18) tolerated Ceftriaxone 06/2017 Subjective less agitated today still mumbling Objective Last 24 Hour Vital Signs Date Time Temp Pulse Resp B/P (MAP) Pulse Ox O2 Delivery O2 Flow Rate FiO2 04/19/18 16:00 97.5 110 20 145/73 (97) 97 04/19/18 12:00 97.7 82 18 143/84 (103) 100 04/19/18 09:00 Room Air 04/19/18 08:59 95 122/78 04/19/18 08:00 97.0 95 19 122/78 (93) 99 04/19/18 04:00 97.5 96 19 115/74 (88) 98 Intake and Output 04/18/18 04/19/18 19:00 07:00 Intake Total 1559.67 ml 995.000 ml Balance 1559.67 ml 995.000 ml Intake Oral 450 ml IV Total 1109.67 ml 995.000 ml # Voids 2 2 # Bowel Movements 1 1 Height (Feet): 5 Height (Inches): 10.00 Weight (Pounds): 163 Objective R facial trauma CTA RR Kati Buck MD Apr 19, 2018 21:40
--- NOTE | 2018-04-19 21:45 | General Progress Note ---
Assessment/Plan Assessment/Plan # Leukocytosis. Secondary to underlying infection, sepsis --> Monitor and trend wbc for improvement --> Peripheral smear has been reviewed, no blasts noted --> Medications have been reviewed --> Imaging has been reviewed --> Blood cultures and urine cultures prn --> has been started on abx, empiric treatment --> trend 32k-->9k --> per ID management # Anemia of chronic disease --> anemia panel has been reviewed # FTT. # Sepsis. 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 # COPD. # Dysphasia # Schizophrenia # HTN. # Legally blind GREATLY APPRECIATE CONSULTATION. Time and date note entered in EMR does not reflect time and date of encounter. Subjective HEENT: Denies: no symptoms, eye pain, blurred vision, tearing, double vision, ear pain, ear discharge, nose pain, nose congestion, throat pain, throat swelling, mouth pain, mouth swelling, other Cardiovascular: Denies: no symptoms, chest pain, edema, irregular heart rate, lightheadedness, palpitations, syncope, other Respiratory: Denies: no symptoms, cough, orthopnea, shortness of breath, SOB with excertion, SOB at rest, sputum, stridor, wheezing, other Genitourinary: Denies: no symptoms, burning, discharge, frequency, flank pain, hematuria, incontinence, pain, urgency, other Neurologic/Psychiatric: Denies: no symptoms, anxiety, depressed, emotional problems, headache, numbness, paresthesia, pre-existing deficit, seizure, tingling, tremors, weakness, other Hematologic/Lymphatic: Denies: no symptoms, anemia, easy bleeding, easy bruising, other Allergies: Coded Allergies: BENZTROPINE (Unverified Allergy, Unknown, 02/22/14) HALOPERIDOL (Unverified Allergy, Unknown, 02/22/14) PENICILLINS (Unverified Allergy, Unknown, 04/14/18) tolerated Ceftriaxone 06/2017 Subjective 04/15: Pt awake and agitated. No acute events. Pt refusing meds. 04/16: wbc severely elevated, seen by Id, on broad spectrum antifungals, foul language, very aggressive 04/18: no events, mumbling, minimally conversive, no fevers, down on ivf 04/19: pt is awake and resting in bed. refusing care, aggressive, no events Objective Last 24 Hour Vital Signs Date Time Temp Pulse Resp B/P (MAP) Pulse Ox O2 Delivery O2 Flow Rate FiO2 04/19/18 16:00 97.5 110 20 145/73 (97) 97 04/19/18 12:00 97.7 82 18 143/84 (103) 100 04/19/18 09:00 Room Air 04/19/18 08:59 95 122/78 04/19/18 08:00 97.0 95 19 122/78 (93) 99 04/19/18 04:00 97.5 96 19 115/74 (88) 98 Intake and Output 04/18/18 04/19/18 18:59 06:59 Intake Total 1676.34 ml 1045.000 ml Balance 1676.34 ml 1045.000 ml Intake Oral 450 ml IV Total 1226.34 ml 1045.000 ml # Voids 2 2 # Bowel Movements 1 1 Height (Feet): 5 Height (Inches): 10.00 Weight (Pounds): 163 Objective Vitals: Have been reviewed General Appearance: alert, agitated Head: normocephalic, atraumatic Eyes: right eye abnormal pupil - right eye has patch which covers the right temporal area of face as well from cancer ressection; left eye other - visible cataract, glassy/hazy appearance ENT: hearing grossly normal, other Neck: full range of motion Respiratory: chest non-tender, lungs clear, normal breath sounds, speaking full sentences Cardiovascular no edema, tachycardia Gastrointestinal: normal bowel sounds, non tender, soft Musculoskeletal: back normal, non-tender, other - bilateral hand contractures Skin: normal color, no rash, warm/dry Jr Daly MD Apr 19, 2018 21:45
[2018-04-19] MEDS: D5W IV SCH (22:24)
[2018-04-19] MEDS: VALPROATE SODIUM IV SCH (22:24)
[2018-04-20] VITALS: BP 105/72
[2018-04-20] MEDS: Vancomycin 1250mg/D5W 250ml IVPB SCH (02:58)
[2018-04-20 04:00] VITALS: BP 134/83
[2018-04-20] MEDS: Aztreonam Inj 2 GM in D5W 110 ML IVPB SCH (05:25)
[2018-04-20] MEDS: D5NS 1,000 ML IV SCH (05:25)
[2018-04-20 06:41] LABS: BASOPHILS % (AUTO) 2.2 % (0.0-2.0); EOSINOPHILS % (AUTO) 1.2 % (0.0-3.0); HEMATOCRIT 30.9 % (42.0-52.0); HEMOGLOBIN 10.2 G/DL (14.2-18.0); LYMPHOCYTES % (AUTO) 42.9 % (20.0-45.0); MEAN CORPUSCULAR VOLUME 88 FL (80-99); MONOCYTES % (AUTO) 8.3 % (1.0-10.0); NEUTROPHILS % (AUTO) 45.4 % (45.0-75.0); PLATELET COUNT 311 K/UL (150-450); RED CELL DISTRIBUTION WIDTH 14.4 % (11.6-14.8); WHITE BLOOD COUNT 11.2 K/UL (4.8-10.8)
[2018-04-20 06:58] LABS: ALANINE AMINOTRANSFERASE 27 U/L (12-78); ALBUMIN 2.2 G/DL (3.4-5.0); ALBUMIN/GLOBULIN RATIO 0.7 (1.0-2.7); ALKALINE PHOSPHATASE 73 U/L (46-116); ANION GAP 8 mmol/L (5-15); ASPARTATE AMINO TRANSFERASE 38 U/L (15-37); BILIRUBIN,TOTAL 0.2 MG/DL (0.2-1.0); BLOOD UREA NITROGEN 8 mg/dL (7-18); CALCIUM 8.6 MG/DL (8.5-10.1); CARBON DIOXIDE 27 MMOL/L (21-32); CHLORIDE 108 MMOL/L (98-107); CREATININE 0.9 MG/DL (0.55-1.30); PHOSPHORUS 2.3 MG/DL (2.5-4.9); POTASSIUM 3.5 MMOL/L (3.5-5.1); SODIUM 143 MMOL/L (136-145)
--- NOTE | 2018-04-20 07:18 | NUR ---
NURSE NOTES: Received patient from Francisco Javier RN, no distress noted, patient is up in bed, new IV site intact, bed is locked and in lowest position, call light within reach, will continue to monitor.
--- NOTE | 2018-04-20 07:24 | NUR ---
HAND-OFF: Report given to Brandon OCONNELL.
[2018-04-20 08:00] VITALS: BP 125/71
[2018-04-20] MEDS: Heparin 5000 units/ml inj SUBQ SCH ×3 (08:12→22:28)
[2018-04-20] MEDS: Ascorbic Acid 500mg tab ORAL SCH (08:19)
[2018-04-20] MEDS: Aspirin Baby 81mg ORAL SCH (08:19)
[2018-04-20] MEDS: Zinc Sulfate 220mg cap ORAL SCH (08:19)
--- NOTE | 2018-04-20 09:22 | Infectious Diseases Prog Note ---
Assessment/Plan Assessment/Plan Sepsis- ?source- r/o UTI, PNA Afebrile Leukocytosis, increased ? 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 Wnd Cx : GPC -hx of superinfected necrotic mass and possible micro abscess s/p Tx 06/2017 -wound cx MRSA, diphterouids, ESBL Proteus 04/14/19 Wound Cx Providencia and MRSA FTT COPD dysphasia schizophrenia HTN MDD legally blind hx of VRE/MRSA colonization Plan: - Continue empiric Azactam , Flagyl and IV Vanco d# 6/10 - If unable to maintain IV PO bactrim DS BID end date 04/24/18 would be appropriate - 04/15/18 SP Ceftriaxone d# 2 -Monitor CBC/CMP, temperatures -Ophthalmology/surgery consult if patient want aggressive Tx. If leukocytosis continues to increase will MRI of eyes Subjective Allergies: Coded Allergies: BENZTROPINE (Unverified Allergy, Unknown, 02/22/14) HALOPERIDOL (Unverified Allergy, Unknown, 02/22/14) PENICILLINS (Unverified Allergy, Unknown, 04/14/18) tolerated Ceftriaxone 06/2017 Subjective Afebrile Leukocytosis Mild CRISTIANA Objective Vital Signs Last 24 Hour Vital Signs Date Time Temp Pulse Resp B/P (MAP) Pulse Ox O2 Delivery O2 Flow Rate FiO2 04/20/18 08:20 78 125/71 04/20/18 08:15 Room Air 04/20/18 08:00 97.3 77 20 125/71 (89) 100 04/20/18 04:00 97.5 97 20 134/83 (100) 98 04/20/18 00:00 97.2 91 20 105/72 (83) 97 04/19/18 21:00 Room Air 04/19/18 20:00 97.7 102 20 133/79 (97) 95 04/19/18 16:00 97.5 110 20 145/73 (97) 97 04/19/18 12:00 97.7 82 18 143/84 (103) 100 Height (Feet): 5 Height (Inches): 10.00 Weight (Pounds): 163 Objective General: NAD HEENT: NCAT, right eye has patch which covers the right temporal area of face as well, left eye - visible cataract, glassy/hazy appearance Respiratory: CATB, No W/C Cardiovascular no edema, tachycardia Gastrointestinal: normal bowel sounds, non tender, soft Musculoskeletal: back normal, non-tender, other - bilateral hand contractures Laboratory Tests Test 04/20/18 05:30 White Blood Count 11.2 K/UL (4.8-10.8) H Red Blood Count 3.50 M/UL (4.70-6.10) L Hemoglobin 10.2 G/DL (14.2-18.0) L Hematocrit 30.9 % (42.0-52.0) L Mean Corpuscular Volume 88 FL (80-99) Mean Corpuscular Hemoglobin 29.2 PG (27.0-31.0) Mean Corpuscular Hemoglobin Concent 33.2 G/DL (32.0-36.0) Red Cell Distribution Width 14.4 % (11.6-14.8) Platelet Count 311 K/UL (150-450) Mean Platelet Volume 6.1 FL (6.5-10.1) L Neutrophils (%) (Auto) 45.4 % (45.0-75.0) Lymphocytes (%) (Auto) 42.9 % (20.0-45.0) Monocytes (%) (Auto) 8.3 % (1.0-10.0) Eosinophils (%) (Auto) 1.2 % (0.0-3.0) Basophils (%) (Auto) 2.2 % (0.0-2.0) H Sodium Level 143 MMOL/L (136-145) Potassium Level 3.5 MMOL/L (3.5-5.1) Chloride Level 108 MMOL/L (98-107) H Carbon Dioxide Level 27 MMOL/L (21-32) Anion Gap 8 mmol/L (5-15) Blood Urea Nitrogen 8 mg/dL (7-18) Creatinine 0.9 MG/DL (0.55-1.30) Estimat Glomerular Filtration Rate > 60 mL/min (>60) Glucose Level 113 MG/DL (74-106) H Uric Acid 4.1 MG/DL (2.6-7.2) Calcium Level 8.6 MG/DL (8.5-10.1) Phosphorus Level 2.3 MG/DL (2.5-4.9) L Magnesium Level 1.6 MG/DL (1.8-2.4) L Total Bilirubin 0.2 MG/DL (0.2-1.0) Aspartate Amino Transf (AST/SGOT) 38 U/L (15-37) H Alanine Aminotransferase (ALT/SGPT) 27 U/L (12-78) Alkaline Phosphatase 73 U/L (46-116) Total Protein 5.4 G/DL (6.4-8.2) L Albumin 2.2 G/DL (3.4-5.0) L Globulin 3.2 g/dL Albumin/Globulin Ratio 0.7 (1.0-2.7) L Current Medications Medications (Trade) Dose Ordered Sig/Jordi Route PRN Reason Start Time Stop Time Status Last Admin Dose Admin Amlodipine Besylate (Norvasc) 5 mg DAILY ORAL 04/14/18 09:00 05/14/18 08:59 04/20/18 08:20 Ascorbic Acid (Vitamin C) 500 mg DAILY ORAL 04/14/18 09:00 05/14/18 08:59 04/20/18 08:19 Aspirin (ASA) 81 mg DAILY ORAL 04/14/18 09:00 05/14/18 08:59 04/20/18 08:19 Aztreonam 2 gm/ Dextrose 110 ml @ 220 mls/hr Q8HR IVPB 04/15/18 14:00 04/22/18 13:59 04/20/18 05:25 Dextrose/Sodium Chloride 1,000 ml @ 50 mls/hr Q20H IV 04/18/18 13:30 05/16/18 13:29 04/20/18 05:25 Famotidine (Pepcid) 20 mg BID ORAL 04/18/18 18:00 05/18/18 17:59 04/20/18 08:19 Heparin Sodium (Porcine) (Heparin 5000 units/ml) 5,000 units EVERY 12 HOURS SUBQ 04/14/18 09:00 05/14/18 08:59 04/18/18 21:18 Lorazepam (Ativan 2mg/ml 1ml) 2 mg Q4H PRN IM For Anxiety 04/14/18 10:00 04/21/18 09:59 04/19/18 21:21 Metronidazole 100 ml @ 100 mls/hr Q8HR IVPB 04/15/18 22:00 04/22/18 21:59 04/20/18 05:40 Multivitamins (Multivitamins) 1 tab DAILY ORAL 04/14/18 09:00 05/14/18 08:59 04/20/18 08:19 Quetiapine Fumarate (SEROquel) 100 mg EVERY 8 HOURS ORAL 04/14/18 10:00 05/14/18 09:59 04/20/18 05:40 Tamsulosin HCl (Flomax) 0.4 mg BEDTIME ORAL 04/16/18 21:00 05/16/18 20:59 04/18/18 21:11 Valproate Sodium 1000 mg/Dextrose 65 ml @ 32.5 mls/hr QHS IV 04/19/18 22:00 05/19/18 21:59 04/19/18 22:24 Vancomycin HCl (Vanco rx to dose) 1 ea DAILY PRN MISC Per rx protocol 04/15/18 12:45 05/15/18 12:44 Vancomycin HCl/ Dextrose 250 ml @ 166.667 mls/hr Q12H IVPB 04/16/18 03:00 04/21/18 02:59 04/20/18 02:58 Zinc Sulfate (Zinc Sulfate) 220 mg DAILY ORAL 04/14/18 09:00 05/14/18 08:59 04/20/18 08:19 Jozef Greene MD Apr 20, 2018 09:22
--- NOTE | 2018-04-20 10:56 | NUR ---
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 * Inadequate oral intake R/T psych issues? etiology unknown as evidenced by pt admitted w/ c/o refusing to eat w/ FTT dx. CURRENT DIET: REGULAR PO DIET RECOMMENDATIONS: Liberalized REGULAR diet/ texture per ROBOTICS ENGINEER + ENSURE TID ENTERAL NUTRITION RECOMMENDATIONS: CONSULT RD IF TF INDICATED ADDITIONAL RECOMMENDATIONS: * Calibrated bedscale wt * Add ENSURE ENLIVE TID w/ meals * Wound healing: continue MVI x 1, Vit C 500mg QD : Add Crispin 1pkt BID * Consider PEG vs NGT feeding if pt receptive and part of POC : pt is combative and agitated * ROBOTICS ENGINEER eval for appropriate texture
--- NOTE | 2018-04-20 10:58 | GI Progress Note ---
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 Ferguson Assessment/Plan psych f/u We will defer PEG at this time, the patient has shown improvement in caloric intake and shows no signs of dysphagia or risk for aspiration. Follow-up calorie count Patient on regular diet push p.o. One-to-one feeder IV/p.o. hydration Antibiotics PPI Follow-up labs The patient was seen and examined at bedside and all new and available data was reviewed in the patients chart. I agree with the above findings, impression and plan. (Patient seen earlier today. Signature stamp does not reflect patient encounter time.). - Juliocesar Ferguson MD Subjective Subjective Limited Objective Last 24 Hour Vital Signs Date Time Temp Pulse Resp B/P (MAP) Pulse Ox O2 Delivery O2 Flow Rate FiO2 04/20/18 08:20 78 125/71 04/20/18 08:15 Room Air 04/20/18 08:00 97.3 77 20 125/71 (89) 100 04/20/18 04:00 97.5 97 20 134/83 (100) 98 04/20/18 00:00 97.2 91 20 105/72 (83) 97 04/19/18 21:00 Room Air 04/19/18 20:00 97.7 102 20 133/79 (97) 95 04/19/18 16:00 97.5 110 20 145/73 (97) 97 04/19/18 12:00 97.7 82 18 143/84 (103) 100 Intake and Output 04/19/18 04/20/18 19:00 07:00 Intake Total 1460 ml 725.0 ml Balance 1460 ml 725.0 ml Intake Oral 1000 ml 450 ml IV Total 460 ml 275.0 ml # Voids 3 2 # Bowel Movements 1 Laboratory Tests Test 04/20/18 05:30 White Blood Count 11.2 K/UL (4.8-10.8) H Red Blood Count 3.50 M/UL (4.70-6.10) L Hemoglobin 10.2 G/DL (14.2-18.0) L Hematocrit 30.9 % (42.0-52.0) L Mean Corpuscular Volume 88 FL (80-99) Mean Corpuscular Hemoglobin 29.2 PG (27.0-31.0) Mean Corpuscular Hemoglobin Concent 33.2 G/DL (32.0-36.0) Red Cell Distribution Width 14.4 % (11.6-14.8) Platelet Count 311 K/UL (150-450) Mean Platelet Volume 6.1 FL (6.5-10.1) L Neutrophils (%) (Auto) 45.4 % (45.0-75.0) Lymphocytes (%) (Auto) 42.9 % (20.0-45.0) Monocytes (%) (Auto) 8.3 % (1.0-10.0) Eosinophils (%) (Auto) 1.2 % (0.0-3.0) Basophils (%) (Auto) 2.2 % (0.0-2.0) H Sodium Level 143 MMOL/L (136-145) Potassium Level 3.5 MMOL/L (3.5-5.1) Chloride Level 108 MMOL/L (98-107) H Carbon Dioxide Level 27 MMOL/L (21-32) Anion Gap 8 mmol/L (5-15) Blood Urea Nitrogen 8 mg/dL (7-18) Creatinine 0.9 MG/DL (0.55-1.30) Estimat Glomerular Filtration Rate > 60 mL/min (>60) Glucose Level 113 MG/DL (74-106) H Uric Acid 4.1 MG/DL (2.6-7.2) Calcium Level 8.6 MG/DL (8.5-10.1) Phosphorus Level 2.3 MG/DL (2.5-4.9) L Magnesium Level 1.6 MG/DL (1.8-2.4) L Total Bilirubin 0.2 MG/DL (0.2-1.0) Aspartate Amino Transf (AST/SGOT) 38 U/L (15-37) H Alanine Aminotransferase (ALT/SGPT) 27 U/L (12-78) Alkaline Phosphatase 73 U/L (46-116) Total Protein 5.4 G/DL (6.4-8.2) L Albumin 2.2 G/DL (3.4-5.0) L Globulin 3.2 g/dL Albumin/Globulin Ratio 0.7 (1.0-2.7) L Height (Feet): 5 Height (Inches): 10.00 Weight (Pounds): 163 General Appearance: no apparent distress, other - History of schizophrenia Cardiovascular: normal rate Respiratory/Chest: normal breath sounds, no respiratory distress Abdominal Exam: normal bowel sounds, non tender, soft Extremities: non-tender Objective Legally blind Roxanna Saavedra NP Apr 20, 2018 10:58
--- NOTE | 2018-04-20 11:23 | Nephrology Progress Note ---
Assessment/Plan Problem List: (1) Dehydration (2) HTN (hypertension) (3) Failure to thrive in adult (4) Schizophrenia Assessment (1) Dysphasia (2) Encounter for PEG (percutaneous endoscopic gastrostomy) (3) Schizophrenia (4) Failure to thrive in adult (5) Generalized weakness (6) Severe malnutrition (7) Dehydration (8) Schizophrenia (9) HTN (10) Legally Blind Plan po improving- DC IV fluid- IV K Phos and Mag Flomax Psych mangement per consultants ? DC planning Subjective ROS Limited/Unobtainable: No Constitutional: Reports: malaise Objective Objective Last 24 Hour Vital Signs Date Time Temp Pulse Resp B/P (MAP) Pulse Ox O2 Delivery O2 Flow Rate FiO2 04/20/18 08:20 78 125/71 04/20/18 08:15 Room Air 04/20/18 08:00 97.3 77 20 125/71 (89) 100 04/20/18 04:00 97.5 97 20 134/83 (100) 98 04/20/18 00:00 97.2 91 20 105/72 (83) 97 04/19/18 21:00 Room Air 04/19/18 20:00 97.7 102 20 133/79 (97) 95 04/19/18 16:00 97.5 110 20 145/73 (97) 97 04/19/18 12:00 97.7 82 18 143/84 (103) 100 Intake and Output 04/19/18 04/20/18 19:00 07:00 Intake Total 1460 ml 725.0 ml Balance 1460 ml 725.0 ml Intake Oral 1000 ml 450 ml IV Total 460 ml 275.0 ml # Voids 3 2 # Bowel Movements 1 Laboratory Tests 04/20/18 05:30: White Blood Count 11.2H, Red Blood Count 3.50L, Hemoglobin 10.2L, Hematocrit 30.9L, Mean Corpuscular Volume 88, Mean Corpuscular Hemoglobin 29.2, Mean Corpuscular Hemoglobin Concent 33.2, Red Cell Distribution Width 14.4, Platelet Count 311, Mean Platelet Volume 6.1L, Neutrophils (%) (Auto) 45.4, Lymphocytes ( %) (Auto) 42.9, Monocytes (%) (Auto) 8.3, Eosinophils (%) (Auto) 1.2, Basophils (%) (Auto) 2.2H, Sodium Level 143, Potassium Level 3.5, Chloride Level 108H, Carbon Dioxide Level 27, Anion Gap 8, Blood Urea Nitrogen 8, Creatinine 0.9, Estimat Glomerular Filtration Rate > 60, Glucose Level 113H, Uric Acid 4.1, Calcium Level 8.6, Phosphorus Level 2.3L, Magnesium Level 1.6L, Total Bilirubin 0.2, Aspartate Amino Transf (AST/SGOT) 38H, Alanine Aminotransferase (ALT/SGPT) 27, Alkaline Phosphatase 73, Total Protein 5.4L, Albumin 2.2L, Globulin 3.2, Albumin/Globulin Ratio 0.7L Height (Feet): 5 Height (Inches): 10.00 Weight (Pounds): 163 General Appearance: no apparent distress Cardiovascular: normal rate Respiratory/Chest: lungs clear Abdomen: soft Objective no change Al Roper MD Apr 20, 2018 11:23
--- NOTE | 2018-04-20 11:50 | NUR ---
NURSE NOTES: Patient removed left hand IV, patient has done this a few times during this admission, patient is refusing to have RN insert a new IV at this time, RN contacted Dr. Greene, Dr. Roper, and Dr. Berg to notify them, Dr. Greene ordered for antibiotics to be PO and Dr. Roper ordered PO medication instead of IV, no new orders received from Dr. Berg, no distress noted, will continue to monitor.
[2018-04-20 12:00] VITALS: BP 141/90
--- NOTE | 2018-04-20 12:22 | NUR ---
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 97.3 HR 77 RR 20 B/P 125/77 IS: BACTRIM DS PO K-PHOS IV X 1 SEROQUEL PO ASA PO HEPARIN SUBC MED/SURG STATUS
[2018-04-20] MEDS: Phospha 250 Neutral tab ORAL SCH ×2 (13:54→17:14)
[2018-04-20] MEDS: Magnesium Oxide 400mg tab ORAL SCH ×2 (13:57→17:14)
[2018-04-20 16:00] VITALS: BP 133/77
[2018-04-20] MEDS ORDERED: Potassium Phosphate 30 MM in NS 275 ML IV ONE (16:00)
[2018-04-20] MEDS: LORazepam Inj 2mg/ml 1ml IM PRN (17:15)
[2018-04-20] MEDS: Bactrim-DS 1 tab ORAL SCH (17:15)
--- NOTE | 2018-04-20 19:32 | NUR ---
HAND-OFF: Report given to Silvana OCONNELL.
--- NOTE | 2018-04-20 19:40 | NUR ---
NURSE NOTES: Received report from ANISH Taylor. Patient sleeping. On room air, no signs of distress or labored breathing. No IV access, MD aware. Bed in lowest position. Will continue with plan of care.
[2018-04-20 20:00] VITALS: BP 133/80
[2018-04-20] MEDS: Tamsulosin 0.4mg cap ORAL SCH (22:25)
[2018-04-20] MEDS: VALPROATE SODIUM IV SCH (22:25)
[2018-04-20] MEDS: D5W IV SCH (22:25)
--- NOTE | 2018-04-20 23:02 | General Progress Note ---
Assessment/Plan Assessment/Plan # Leukocytosis. Secondary to underlying infection, sepsis --> Monitor and trend wbc for improvement --> Peripheral smear has been reviewed, no blasts noted --> Medications have been reviewed --> Imaging has been reviewed --> Blood cultures and urine cultures prn --> has been started on abx, empiric treatment --> trend 32k-->9k-->11 --> per ID management # Anemia of chronic disease --> anemia panel has been reviewed # FTT. # Sepsis. 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 # COPD. # Dysphasia # Schizophrenia # HTN. # Legally blind GREATLY APPRECIATE CONSULTATION. Time and date note entered in EMR does not reflect time and date of encounter. Subjective Constitutional: Denies: no symptoms, chills, diaphoresis, fever, malaise, weakness, other HEENT: Denies: no symptoms, eye pain, blurred vision, tearing, double vision, ear pain, ear discharge, nose pain, nose congestion, throat pain, throat swelling, mouth pain, mouth swelling, other Cardiovascular: Denies: no symptoms, chest pain, edema, irregular heart rate, lightheadedness, palpitations, syncope, other Respiratory: Denies: no symptoms, cough, orthopnea, shortness of breath, SOB with excertion, SOB at rest, sputum, stridor, wheezing, other Genitourinary: Denies: no symptoms, burning, discharge, frequency, flank pain, hematuria, incontinence, pain, urgency, other Neurologic/Psychiatric: Denies: no symptoms, anxiety, depressed, emotional problems, headache, numbness, paresthesia, pre-existing deficit, seizure, tingling, tremors, weakness, other Endocrine: Denies: no symptoms, excessive sweating, flushing, intolerance to cold, intolerance to heat, increased hunger, increased thirst, increased urine, unexplained weight gain, unexplained weight loss, other Hematologic/Lymphatic: Denies: no symptoms, anemia, easy bleeding, easy bruising, other Allergies: Coded Allergies: BENZTROPINE (Unverified Allergy, Unknown, 02/22/14) HALOPERIDOL (Unverified Allergy, Unknown, 02/22/14) PENICILLINS (Unverified Allergy, Unknown, 04/14/18) tolerated Ceftriaxone 06/2017 Subjective 04/15: Pt awake and agitated. No acute events. Pt refusing meds. 04/16: wbc severely elevated, seen by Id, on broad spectrum antifungals, foul language, very aggressive 04/18: no events, mumbling, minimally conversive, no fevers, down on ivf 04/19: pt is awake and resting in bed. refusing care, aggressive, no events 04/20: Pt is awake and alert, refusing care, minimally conversive, on abx, wbc have improved. Objective Last 24 Hour Vital Signs Date Time Temp Pulse Resp B/P (MAP) Pulse Ox O2 Delivery O2 Flow Rate FiO2 04/20/18 16:00 97.5 79 20 133/77 (95) 100 04/20/18 12:00 97.5 89 21 141/90 (107) 100 04/20/18 08:20 78 125/71 04/20/18 08:15 Room Air 04/20/18 08:00 97.3 77 20 125/71 (89) 100 04/20/18 04:00 97.5 97 20 134/83 (100) 98 04/20/18 00:00 97.2 91 20 105/72 (83) 97 Intake and Output 04/19/18 04/20/18 19:00 07:00 Intake Total 1460 ml 725.0 ml Balance 1460 ml 725.0 ml Intake Oral 1000 ml 450 ml IV Total 460 ml 275.0 ml # Voids 3 2 # Bowel Movements 1 Laboratory Tests 04/20/18 05:30: White Blood Count 11.2H, Red Blood Count 3.50L, Hemoglobin 10.2L, Hematocrit 30.9L, Mean Corpuscular Volume 88, Mean Corpuscular Hemoglobin 29.2, Mean Corpuscular Hemoglobin Concent 33.2, Red Cell Distribution Width 14.4, Platelet Count 311, Mean Platelet Volume 6.1L, Neutrophils (%) (Auto) 45.4, Lymphocytes ( %) (Auto) 42.9, Monocytes (%) (Auto) 8.3, Eosinophils (%) (Auto) 1.2, Basophils (%) (Auto) 2.2H, Sodium Level 143, Potassium Level 3.5, Chloride Level 108H, Carbon Dioxide Level 27, Anion Gap 8, Blood Urea Nitrogen 8, Creatinine 0.9, Estimat Glomerular Filtration Rate > 60, Glucose Level 113H, Uric Acid 4.1, Calcium Level 8.6, Phosphorus Level 2.3L, Magnesium Level 1.6L, Total Bilirubin 0.2, Aspartate Amino Transf (AST/SGOT) 38H, Alanine Aminotransferase (ALT/SGPT) 27, Alkaline Phosphatase 73, Total Protein 5.4L, Albumin 2.2L, Globulin 3.2, Albumin/Globulin Ratio 0.7L Height (Feet): 5 Height (Inches): 10.00 Weight (Pounds): 163 Objective Vitals: Have been reviewed General Appearance: alert, agitated Head: normocephalic, atraumatic Eyes: right eye abnormal pupil - right eye has patch which covers the right temporal area of face as well from cancer ressection; left eye other - visible cataract, glassy/hazy appearance ENT: hearing grossly normal, other Neck: full range of motion Respiratory: chest non-tender, lungs clear, normal breath sounds, speaking full sentences Cardiovascular no edema, tachycardia Gastrointestinal: normal bowel sounds, non tender, soft Musculoskeletal: back normal, non-tender, other - bilateral hand contractures Skin: normal color, no rash, warm/dry Jr Daly MD Apr 20, 2018 23:02
[2018-04-21] VITALS: BP 116/73
--- NOTE | 2018-04-21 00:02 | General Progress Note ---
Assessment/Plan Problem List: (1) Schizophrenia ICD Codes: F20.9 - Schizophrenia, unspecified SNOMED: 36346596 (2) Failure to thrive in adult ICD Codes: R62.7 - Adult failure to thrive SNOMED: 212437469 Assessment/Plan seroquel 150mg tid prolexin dec IM ativan Im Recommend hospice placement. depakote 500po tid Subjective Neurologic/Psychiatric: Reports: anxiety Allergies: Coded Allergies: BENZTROPINE (Unverified Allergy, Unknown, 02/22/14) HALOPERIDOL (Unverified Allergy, Unknown, 02/22/14) PENICILLINS (Unverified Allergy, Unknown, 04/14/18) tolerated Ceftriaxone 06/2017 Subjective the pt is agitated at times responds to internal stimuli and is delusional. the pt is agitated and yelling no si/hi Objective Last 24 Hour Vital Signs Date Time Temp Pulse Resp B/P (MAP) Pulse Ox O2 Delivery O2 Flow Rate FiO2 04/20/18 20:00 97.7 111 20 133/80 (97) 98 04/20/18 16:00 97.5 79 20 133/77 (95) 100 04/20/18 12:00 97.5 89 21 141/90 (107) 100 04/20/18 08:20 78 125/71 04/20/18 08:15 Room Air 04/20/18 08:00 97.3 77 20 125/71 (89) 100 04/20/18 04:00 97.5 97 20 134/83 (100) 98 Intake and Output 04/20/18 04/21/18 19:00 07:00 Intake Total 775 ml Balance 775 ml Intake Oral 775 ml # Voids 4 # Bowel Movements 3 Laboratory Tests 04/20/18 05:30: White Blood Count 11.2H, Red Blood Count 3.50L, Hemoglobin 10.2L, Hematocrit 30.9L, Mean Corpuscular Volume 88, Mean Corpuscular Hemoglobin 29.2, Mean Corpuscular Hemoglobin Concent 33.2, Red Cell Distribution Width 14.4, Platelet Count 311, Mean Platelet Volume 6.1L, Neutrophils (%) (Auto) 45.4, Lymphocytes ( %) (Auto) 42.9, Monocytes (%) (Auto) 8.3, Eosinophils (%) (Auto) 1.2, Basophils (%) (Auto) 2.2H, Sodium Level 143, Potassium Level 3.5, Chloride Level 108H, Carbon Dioxide Level 27, Anion Gap 8, Blood Urea Nitrogen 8, Creatinine 0.9, Estimat Glomerular Filtration Rate > 60, Glucose Level 113H, Uric Acid 4.1, Calcium Level 8.6, Phosphorus Level 2.3L, Magnesium Level 1.6L, Total Bilirubin 0.2, Aspartate Amino Transf (AST/SGOT) 38H, Alanine Aminotransferase (ALT/SGPT) 27, Alkaline Phosphatase 73, Total Protein 5.4L, Albumin 2.2L, Globulin 3.2, Albumin/Globulin Ratio 0.7L Height (Feet): 5 Height (Inches): 10.00 Weight (Pounds): 163 General Appearance: alert, confused, agitated Nathaniel Davis MD Apr 21, 2018 00:02
[2018-04-21 04:00] VITALS: BP 140/80
--- NOTE | 2018-04-21 07:29 | NUR ---
HAND-OFF: Report given to ANISH Licea.
--- NOTE | 2018-04-21 08:00 | NUR ---
NURSE NOTES: Report received from ANISH Lake. Pt in bed, resting, being fed breakfast by Maranda SELF, no distress noted, confused and irritable, bed in lowest position, call light within reach
[2018-04-21] MEDS: Phospha 250 Neutral tab ORAL SCH ×3 (09:16→17:04)
[2018-04-21] MEDS: Aspirin Baby 81mg ORAL SCH (09:16)
[2018-04-21] MEDS: Ascorbic Acid 500mg tab ORAL SCH (09:16)
[2018-04-21] MEDS: LORazepam Inj 2mg/ml 1ml IM PRN (09:17)
[2018-04-21] MEDS: Depakote 500mg tab ORAL SCH ×3 (09:17→17:04)
[2018-04-21] MEDS: Magnesium Oxide 400mg tab ORAL SCH ×3 (09:17→17:04)
[2018-04-21] MEDS: Bactrim-DS 1 tab ORAL SCH ×2 (09:17→22:44)
[2018-04-21] MEDS: Heparin 5000 units/ml inj SUBQ SCH ×2 (09:19→21:00)
--- NOTE | 2018-04-21 09:34 | Infectious Diseases Prog Note ---
Assessment/Plan Assessment/Plan Sepsis- ?source- r/o UTI, PNA Afebrile Leukocytosis, increased ? 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 If leukocytosis continues to increase will MRI of eyes Subjective Allergies: Coded Allergies: BENZTROPINE (Unverified Allergy, Unknown, 02/22/14) HALOPERIDOL (Unverified Allergy, Unknown, 02/22/14) PENICILLINS (Unverified Allergy, Unknown, 04/14/18) tolerated Ceftriaxone 06/2017 Subjective Afebrile Leukocytosis Mild when last checked CRISTIANA Objective Vital Signs Last 24 Hour Vital Signs Date Time Temp Pulse Resp B/P (MAP) Pulse Ox O2 Delivery O2 Flow Rate FiO2 04/21/18 09:16 115 140/80 04/21/18 04:00 97.7 115 20 140/80 (100) 98 04/21/18 00:00 97.0 81 20 116/73 (87) 95 04/20/18 21:00 Room Air 04/20/18 20:00 97.7 111 20 133/80 (97) 98 04/20/18 16:00 97.5 79 20 133/77 (95) 100 04/20/18 12:00 97.5 89 21 141/90 (107) 100 Height (Feet): 5 Height (Inches): 10.00 Weight (Pounds): 163 Objective General: NAD, Irritable HEENT: NCAT, right eye has patch which covers the right temporal area of face as well, left eye - visible cataract, glassy/hazy appearance Respiratory: CATB, No W/C Cardiovascular no edema, tachycardia Gastrointestinal: normal bowel sounds, non tender, soft Musculoskeletal: back normal, non-tender, other - bilateral hand contractures Current Medications Medications (Trade) Dose Ordered Sig/Jordi Route PRN Reason Start Time Stop Time Status Last Admin Dose Admin Amlodipine Besylate (Norvasc) 5 mg DAILY ORAL 04/14/18 09:00 05/14/18 08:59 04/21/18 09:16 Ascorbic Acid (Vitamin C) 500 mg DAILY ORAL 04/14/18 09:00 05/14/18 08:59 04/21/18 09:16 Aspirin (ASA) 81 mg DAILY ORAL 04/14/18 09:00 05/14/18 08:59 04/21/18 09:16 Divalproex Sodium (Depakote) 500 mg TID ORAL 04/21/18 09:00 05/21/18 08:59 04/21/18 09:17 Famotidine (Pepcid) 20 mg BID ORAL 04/18/18 18:00 05/18/18 17:59 04/21/18 09:16 Heparin Sodium (Porcine) (Heparin 5000 units/ml) 5,000 units EVERY 12 HOURS SUBQ 04/14/18 09:00 05/14/18 08:59 04/21/18 09:19 Lorazepam (Ativan 2mg/ml 1ml) 2 mg Q4H PRN IM For Anxiety 04/20/18 16:15 04/27/18 16:14 04/21/18 09:17 Magnesium Oxide (Mag-Ox 400mg) 400 mg THREE TIMES A DAY ORAL 04/20/18 13:00 05/20/18 12:59 04/21/18 09:17 Multivitamins (Multivitamins) 1 tab DAILY ORAL 04/14/18 09:00 05/14/18 08:59 04/21/18 09:16 Phosphorus (Phospha 250 Neutral) 500 mg THREE TIMES A DAY ORAL 04/20/18 13:00 05/20/18 12:59 04/21/18 09:16 Quetiapine Fumarate (SEROquel) 150 mg EVERY 8 HOURS ORAL 04/21/18 06:00 05/21/18 05:59 04/21/18 06:48 Tamsulosin HCl (Flomax) 0.4 mg BEDTIME ORAL 04/16/18 21:00 05/16/18 20:59 04/20/18 22:25 Trimethoprim/ Sulfamethoxazole (Bactrim-DS) 1 tab TWICE A DAY ORAL 04/20/18 18:00 04/24/18 23:59 04/21/18 09:17 Jozef Greene MD Apr 21, 2018 09:34
--- NOTE | 2018-04-21 10:21 | NUR ---
NURSE NOTES: Notified Dr. Roper of Mg 1.6 and Ph 2.3
[2018-04-21 12:00] VITALS: BP 122/74
--- NOTE | 2018-04-21 12:07 | Nephrology Progress Note ---
Assessment/Plan Problem List: (1) Dehydration (2) HTN (hypertension) (3) Failure to thrive in adult (4) Schizophrenia Assessment (1) Dysphasia (2) Encounter for PEG (percutaneous endoscopic gastrostomy) (3) Schizophrenia (4) Failure to thrive in adult (5) Generalized weakness (6) Severe malnutrition (7) Dehydration (8) Schizophrenia (9) HTN (10) Legally Blind Plan po improving- IV out on PO K and Phos Flomax Psych mangement per consultants ? DC planning Subjective ROS Limited/Unobtainable: No Constitutional: Reports: malaise Objective Objective Last 24 Hour Vital Signs Date Time Temp Pulse Resp B/P (MAP) Pulse Ox O2 Delivery O2 Flow Rate FiO2 04/21/18 09:16 115 140/80 04/21/18 09:00 Room Air 04/21/18 04:00 97.7 115 20 140/80 (100) 98 04/21/18 00:00 97.0 81 20 116/73 (87) 95 04/20/18 21:00 Room Air 04/20/18 20:00 97.7 111 20 133/80 (97) 98 04/20/18 16:00 97.5 79 20 133/77 (95) 100 Intake and Output 04/20/18 04/21/18 19:00 07:00 Intake Total 775 ml 350 ml Balance 775 ml 350 ml Intake Oral 775 ml 350 ml # Voids 4 # Bowel Movements 3 Height (Feet): 5 Height (Inches): 10.00 Weight (Pounds): 163 General Appearance: no apparent distress Objective no change Al Roper MD Apr 21, 2018 12:07
--- NOTE | 2018-04-21 12:34 | GI Progress Note ---
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 Ferguson Assessment/Plan psych f/u defer PEG, the patient has shown improvement in caloric intake and shows no signs of dysphagia or risk for aspiration. Follow-up calorie count Patient on regular diet push p.o. One-to-one feeder IV/p.o. hydration Antibiotics PPI Follow-up labs DC planning The patient was seen and examined at bedside and all new and available data was reviewed in the patients chart. I agree with the above findings, impression and plan. (Patient seen earlier today. Signature stamp does not reflect patient encounter time.). - Juliocesar Ferguson MD Subjective Subjective Limited Objective Last 24 Hour Vital Signs Date Time Temp Pulse Resp B/P (MAP) Pulse Ox O2 Delivery O2 Flow Rate FiO2 04/21/18 09:16 115 140/80 04/21/18 09:00 Room Air 04/21/18 04:00 97.7 115 20 140/80 (100) 98 04/21/18 00:00 97.0 81 20 116/73 (87) 95 04/20/18 21:00 Room Air 04/20/18 20:00 97.7 111 20 133/80 (97) 98 04/20/18 16:00 97.5 79 20 133/77 (95) 100 Intake and Output 04/20/18 04/21/18 19:00 07:00 Intake Total 775 ml 350 ml Balance 775 ml 350 ml Intake Oral 775 ml 350 ml # Voids 4 # Bowel Movements 3 Height (Feet): 5 Height (Inches): 10.00 Weight (Pounds): 163 General Appearance: no apparent distress, alert Cardiovascular: normal rate Abdominal Exam: soft Objective Legally blind Roxanna Saavedra NP Apr 21, 2018 12:34
--- NOTE | 2018-04-21 15:15 | NUR ---
SS note Chart reviewed; no SW needs identified at this time. SW to follow as needed. Patient is DNR/DNI and questioning Hospice upon discharge.
[2018-04-21 15:59] VITALS: BP 121/77
--- NOTE | 2018-04-21 19:24 | NUR ---
HAND-OFF: Report given to ANISH Haro.
--- NOTE | 2018-04-21 19:33 | NUR ---
NURSE NOTES: Messaged Dr. Davis regarding Depakote EC 500 mg order. Pt needs to have meds crushed. Pharmacy does not carry Depakote any other way. Only Valproic acid liquid form or immediate release.
--- NOTE | 2018-04-21 19:48 | NUR ---
NURSE NOTES: Received report from ANISH Licea. Patient sleeping. No signs of distress or labored breathing on room air. bed in lowest position with call light in reach. Will continue with plan of care.
[2018-04-21 20:00] VITALS: BP 120/98
--- NOTE | 2018-04-21 22:18 | General Progress Note ---
Assessment/Plan Problem List: (1) Schizophrenia ICD Codes: F20.9 - Schizophrenia, unspecified SNOMED: 32038031 (2) Failure to thrive in adult ICD Codes: R62.7 - Adult failure to thrive SNOMED: 598445701 Status: unchanged Assessment/Plan seroquel 150mg tid prolexin dec IM ativan Im Recommend hospice placement. dc depakote 500po tid Subjective Neurologic/Psychiatric: Reports: anxiety, depressed, emotional problems Allergies: Coded Allergies: BENZTROPINE (Unverified Allergy, Unknown, 02/22/14) HALOPERIDOL (Unverified Allergy, Unknown, 02/22/14) PENICILLINS (Unverified Allergy, Unknown, 04/14/18) tolerated Ceftriaxone 06/2017 Subjective the pt is agitated at times responds to internal stimuli and is delusional. the pt is agitated and yelling no si/hi no changes Objective Last 24 Hour Vital Signs Date Time Temp Pulse Resp B/P (MAP) Pulse Ox O2 Delivery O2 Flow Rate FiO2 04/21/18 15:59 97.0 100 20 121/77 (92) 97 04/21/18 12:00 97.9 82 19 122/74 (90) 97 04/21/18 09:16 115 140/80 04/21/18 09:00 Room Air 04/21/18 04:00 97.7 115 20 140/80 (100) 98 04/21/18 00:00 97.0 81 20 116/73 (87) 95 Intake and Output 04/20/18 04/21/18 18:59 06:59 Intake Total 775 ml 350 ml Balance 775 ml 350 ml Intake Oral 775 ml 350 ml # Voids 4 # Bowel Movements 3 Height (Feet): 5 Height (Inches): 10.00 Weight (Pounds): 163 General Appearance: alert, confused, agitated Nathaniel Davis MD Apr 21, 2018 22:18
--- NOTE | 2018-04-21 22:43 | General Progress Note ---
Assessment/Plan Problem List: (1) Cancer ICD Codes: C80.1 - Malignant (primary) neoplasm, unspecified SNOMED: 593363853 (2) Generalized weakness ICD Codes: R53.1 - Weakness SNOMED: 26640744 (3) Severe malnutrition ICD Codes: E43 - Unspecified severe protein-calorie malnutrition SNOMED: 68823415 (4) Failure to thrive in adult ICD Codes: R62.7 - Adult failure to thrive SNOMED: 187495252 (5) Poor fluid intake ICD Codes: R63.8 - Other symptoms and signs concerning food and fluid intake SNOMED: 857966705 (6) Schizophrenia ICD Codes: F20.9 - Schizophrenia, unspecified SNOMED: 40996185 Status: progressing Assessment/Plan FTT poor appetite anemia malnurished no change reviewed chart and meds Subjective ROS Limited/Unobtainable: Yes Allergies: Coded Allergies: BENZTROPINE (Unverified Allergy, Unknown, 02/22/14) HALOPERIDOL (Unverified Allergy, Unknown, 02/22/14) PENICILLINS (Unverified Allergy, Unknown, 04/14/18) tolerated Ceftriaxone 06/2017 Objective Last 24 Hour Vital Signs Date Time Temp Pulse Resp B/P (MAP) Pulse Ox O2 Delivery O2 Flow Rate FiO2 04/21/18 15:59 97.0 100 20 121/77 (92) 97 04/21/18 12:00 97.9 82 19 122/74 (90) 97 04/21/18 09:16 115 140/80 04/21/18 09:00 Room Air 04/21/18 04:00 97.7 115 20 140/80 (100) 98 04/21/18 00:00 97.0 81 20 116/73 (87) 95 Intake and Output 04/20/18 04/21/18 18:59 06:59 Intake Total 775 ml 350 ml Balance 775 ml 350 ml Intake Oral 775 ml 350 ml # Voids 4 # Bowel Movements 3 Height (Feet): 5 Height (Inches): 10.00 Weight (Pounds): 163 Cardiovascular: regular rhythm Respiratory/Chest: lungs clear Cady Berg MD Apr 21, 2018 22:43
[2018-04-21] MEDS: Tamsulosin 0.4mg cap ORAL SCH (22:44)
--- NOTE | 2018-04-21 22:55 | General Progress Note ---
Assessment/Plan Assessment/Plan # Leukocytosis. Secondary to underlying infection, sepsis --> Monitor and trend wbc for improvement --> Peripheral smear has been reviewed, no blasts noted --> Medications have been reviewed --> Imaging has been reviewed --> Blood cultures and urine cultures prn --> has been started on abx, empiric treatment --> trend 32k-->9k-->11--> --> per ID management # Anemia of chronic disease --> anemia panel has been reviewed # FTT. # Sepsis. 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 # COPD. # Dysphasia # Schizophrenia # HTN. # Legally blind GREATLY APPRECIATE CONSULTATION. Time and date note entered in EMR does not reflect time and date of encounter. Subjective Constitutional: Denies: no symptoms, chills, diaphoresis, fever, malaise, weakness, other HEENT: Denies: no symptoms, eye pain, blurred vision, tearing, double vision, ear pain, ear discharge, nose pain, nose congestion, throat pain, throat swelling, mouth pain, mouth swelling, other Cardiovascular: Denies: no symptoms, chest pain, edema, irregular heart rate, lightheadedness, palpitations, syncope, other Respiratory: Denies: no symptoms, cough, orthopnea, shortness of breath, SOB with excertion, SOB at rest, sputum, stridor, wheezing, other Genitourinary: Denies: no symptoms, burning, discharge, frequency, flank pain, hematuria, incontinence, pain, urgency, other Neurologic/Psychiatric: Denies: no symptoms, anxiety, depressed, emotional problems, headache, numbness, paresthesia, pre-existing deficit, seizure, tingling, tremors, weakness, other Allergies: Coded Allergies: BENZTROPINE (Unverified Allergy, Unknown, 02/22/14) HALOPERIDOL (Unverified Allergy, Unknown, 02/22/14) PENICILLINS (Unverified Allergy, Unknown, 04/14/18) tolerated Ceftriaxone 06/2017 Subjective 04/15: Pt awake and agitated. No acute events. Pt refusing meds. 04/16: wbc severely elevated, seen by Id, on broad spectrum antifungals, foul language, very aggressive 04/18: no events, mumbling, minimally conversive, no fevers, down on ivf 12: pt is awake and resting in bed. refusing care, aggressive, no events 04/20: Pt is awake and alert, refusing care, minimally conversive, on abx, wbc have improved. 04/21: Pt is awake and resting in bed, aggressive, mumbling, Objective Last 24 Hour Vital Signs Date Time Temp Pulse Resp B/P (MAP) Pulse Ox O2 Delivery O2 Flow Rate FiO2 04/21/18 15:59 97.0 100 20 121/77 (92) 97 04/21/18 12:00 97.9 82 19 122/74 (90) 97 04/21/18 09:16 115 140/80 04/21/18 09:00 Room Air 04/21/18 04:00 97.7 115 20 140/80 (100) 98 04/21/18 00:00 97.0 81 20 116/73 (87) 95 Intake and Output 04/20/18 04/21/18 18:59 06:59 Intake Total 775 ml 350 ml Balance 775 ml 350 ml Intake Oral 775 ml 350 ml # Voids 4 # Bowel Movements 3 Height (Feet): 5 Height (Inches): 10.00 Weight (Pounds): 163 Objective Vitals: Have been reviewed General Appearance: alert, agitated Head: normocephalic, atraumatic Eyes: right eye abnormal pupil - right eye has patch which covers the right temporal area of face as well from cancer ressection; left eye other - visible cataract, glassy/hazy appearance ENT: hearing grossly normal, other Neck: full range of motion Respiratory: chest non-tender, lungs clear, normal breath sounds, speaking full sentences Cardiovascular no edema, tachycardia Gastrointestinal: normal bowel sounds, non tender, soft Musculoskeletal: back normal, non-tender, other - bilateral hand contractures Skin: normal color, no rash, warm/dry Jr Daly MD Apr 21, 2018 22:55
[2018-04-22] VITALS: BP 117/74
--- NOTE | 2018-04-22 07:56 | NUR ---
HAND-OFF: Report given to ANISH Powell.
[2018-04-22 08:00] VITALS: BP 125/73
--- NOTE | 2018-04-22 08:09 | NUR ---
NURSE NOTES: Patient alert x1, in room air, no sign of distress and shortness of breath. Patient is blind for both eyes, right eye cellulitis and the skin is darker, patient is cursing medical staffs and refused lab draw. Patient needs a feeder and nursing administrator Vannessa is aware. Patient had No IV and MD is aware. Bed at lowest position, side rails up and bed alarm on, breaks engaged. Will keep monitoring.
[2018-04-22] MEDS: Heparin 5000 units/ml inj SUBQ SCH ×2 (09:00→21:00)
--- NOTE | 2018-04-22 09:12 | Infectious Diseases Prog Note ---
Assessment/Plan Assessment/Plan Sepsis- ?source- r/o UTI, PNA Afebrile Leukocytosis, increased ? 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 Wnd Cx : GPC -hx of superinfected necrotic mass and possible micro abscess s/p Tx 06/2017 -wound cx MRSA, diphterouids, ESBL Proteus 04/14/19 Wound Cx Providencia and MRSA FTT COPD dysphasia schizophrenia HTN MDD legally blind hx of VRE/MRSA colonization Plan: - Continue PO Bactrim DS BID end date 04/24/18 - 04/20/18 SP empiric Azactam , Flagyl and IV Vanco d# 6/10 - 04/15/18 SP Ceftriaxone d# 2 -Monitor CBC/CMP, temperatures -Ophthalmology/surgery consult if patient want aggressive Tx. If leukocytosis continues to increase will MRI of eyes Subjective Allergies: Coded Allergies: BENZTROPINE (Unverified Allergy, Unknown, 02/22/14) HALOPERIDOL (Unverified Allergy, Unknown, 02/22/14) PENICILLINS (Unverified Allergy, Unknown, 04/14/18) tolerated Ceftriaxone 06/2017 Subjective CRISTIANA Afebrile Objective Vital Signs Last 24 Hour Vital Signs Date Time Temp Pulse Resp B/P (MAP) Pulse Ox O2 Delivery O2 Flow Rate FiO2 04/22/18 00:00 98.1 98 19 117/74 (88) 95 04/21/18 21:00 Room Air 04/21/18 20:00 97.9 105 19 120/98 (105) 97 04/21/18 15:59 97.0 100 20 121/77 (92) 97 04/21/18 12:00 97.9 82 19 122/74 (90) 97 04/21/18 09:16 115 140/80 Height (Feet): 5 Height (Inches): 10.00 Weight (Pounds): 163 Objective General: NAD HEENT: NCAT, right eye has patch which covers the right temporal area of face as well, left eye - visible cataract, glassy/hazy appearance Respiratory: CATB, No W/C Cardiovascular no edema, tachycardia Gastrointestinal: normal bowel sounds, non tender, soft Current Medications Medications (Trade) Dose Ordered Sig/Jordi Route PRN Reason Start Time Stop Time Status Last Admin Dose Admin Amlodipine Besylate (Norvasc) 5 mg DAILY ORAL 04/14/18 09:00 1/27/19 08:59 04/21/18 09:16 Ascorbic Acid (Vitamin C) 500 mg DAILY ORAL 04/14/18 09:00 05/14/18 08:59 04/21/18 09:16 Aspirin (ASA) 81 mg DAILY ORAL 04/14/18 09:00 05/14/18 08:59 04/21/18 09:16 Famotidine (Pepcid) 20 mg BID ORAL 04/18/18 18:00 05/18/18 17:59 04/21/18 17:04 Heparin Sodium (Porcine) (Heparin 5000 units/ml) 5,000 units EVERY 12 HOURS SUBQ 04/14/18 09:00 05/14/18 08:59 04/21/18 09:19 Lorazepam (Ativan 2mg/ml 1ml) 2 mg Q4H PRN IM For Anxiety 04/20/18 16:15 04/27/18 16:14 04/21/18 09:17 Magnesium Oxide (Mag-Ox 400mg) 400 mg THREE TIMES A DAY ORAL 04/20/18 13:00 05/20/18 12:59 04/21/18 17:04 Multivitamins (Multivitamins) 1 tab DAILY ORAL 04/14/18 09:00 05/14/18 08:59 04/21/18 09:16 Phosphorus (Phospha 250 Neutral) 500 mg THREE TIMES A DAY ORAL 04/20/18 13:00 05/20/18 12:59 04/21/18 17:04 Quetiapine Fumarate (SEROquel) 150 mg EVERY 8 HOURS ORAL 04/21/18 06:00 05/21/18 05:59 04/22/18 05:57 Tamsulosin HCl (Flomax) 0.4 mg BEDTIME ORAL 04/16/18 21:00 05/16/18 20:59 04/21/18 22:44 Trimethoprim/ Sulfamethoxazole (Bactrim-DS) 1 tab Q12HR ORAL 04/21/18 21:00 04/24/18 23:59 04/21/18 22:44 Jozef Greene MD Apr 22, 2018 09:12
[2018-04-22] MEDS: Phospha 250 Neutral tab ORAL SCH ×3 (09:28→17:25)
[2018-04-22] MEDS: Aspirin Baby 81mg ORAL SCH (09:29)
[2018-04-22] MEDS: Ascorbic Acid 500mg tab ORAL SCH (09:29)
[2018-04-22] MEDS: Magnesium Oxide 400mg tab ORAL SCH ×3 (09:29→17:25)
[2018-04-22] MEDS: Bactrim-DS 1 tab ORAL SCH ×2 (09:29→21:17)
--- NOTE | 2018-04-22 09:33 | NUR ---
CASE MANAGEMENT:REVIEW 04/21/18 SI: SEPSIS. FTT. MALNUTRITION 97.7 115 20 140/80 98% ON RA IS: BACTRIM PO Q12 SEROQUEL PO Q8HRS PHOSPHA PO TID PEPCID PO BID FLOMAX PO QHS HEPARIN SQ Q12 ASA PO QD NORVASC PO QD MVI PO QD : MED/SURG STATUS 4 [facility] 04/22/18 SI: SEPSIS. FTT. MALNUTRITION DNR/DNI 98.1 103 19 125/73 95% ON RA IS: BACTRIM PO Q12 SEROQUEL PO Q8HRS PHOSPHA PO TID PEPCID PO BID FLOMAX PO QHS HEPARIN SQ Q12 ASA PO QD NORVASC PO QD MVI PO QD : MED/SURG STATUS 4 [facility] DCP: FROM [facility]
--- NOTE | 2018-04-22 10:16 | General Progress Note ---
Assessment/Plan Assessment/Plan psych f/u defer PEG, the patient has shown improvement in caloric intake and shows no signs of dysphagia or risk for aspiration. Follow-up calorie count Patient on regular diet push p.o. One-to-one feeder IV/p.o. hydration Antibiotics PPI Follow-up labs DC planning Subjective ROS Limited/Unobtainable: Yes Allergies: Coded Allergies: BENZTROPINE (Unverified Allergy, Unknown, 02/22/14) HALOPERIDOL (Unverified Allergy, Unknown, 02/22/14) PENICILLINS (Unverified Allergy, Unknown, 04/14/18) tolerated Ceftriaxone 06/2017 Objective Last 24 Hour Vital Signs Date Time Temp Pulse Resp B/P (MAP) Pulse Ox O2 Delivery O2 Flow Rate FiO2 04/22/18 09:29 103 125/73 04/22/18 09:00 Room Air 04/22/18 08:00 98.1 103 19 125/73 (90) 95 04/22/18 00:00 98.1 98 19 117/74 (88) 95 04/21/18 21:00 Room Air 04/21/18 20:00 97.9 105 19 120/98 (105) 97 04/21/18 15:59 97.0 100 20 121/77 (92) 97 04/21/18 12:00 97.9 82 19 122/74 (90) 97 Intake and Output 04/21/18 04/22/18 19:00 07:00 Intake Total 1600 ml 250 ml Balance 1600 ml 250 ml Intake Oral 1600 ml 250 ml # Voids 3 3 Height (Feet): 5 Height (Inches): 10.00 Weight (Pounds): 163 General Appearance: alert EENT: normal ENT inspection Neck: supple Cardiovascular: normal rate Respiratory/Chest: lungs clear Abdomen: normal bowel sounds, non tender, soft Extremities: non-tender Juliocesar Ferguson MD Apr 22, 2018 10:16
[2018-04-22 12:00] VITALS: BP 134/88
--- NOTE | 2018-04-22 13:34 | NUR ---
NURSE NOTES: Patient refused blood draw for lab, Dr Greene is aware.
--- NOTE | 2018-04-22 13:54 | Nephrology Progress Note ---
Assessment/Plan Problem List: (1) Dehydration (2) HTN (hypertension) (3) Failure to thrive in adult (4) Schizophrenia Assessment (1) Dysphasia (2) Encounter for PEG (percutaneous endoscopic gastrostomy) (3) Schizophrenia (4) Failure to thrive in adult (5) Generalized weakness (6) Severe malnutrition (7) Dehydration (8) Schizophrenia (9) HTN (10) Legally Blind Plan Po improving- IV out on PO K and Phos Flomax Psych mangement per consultants ? DC planning Subjective ROS Limited/Unobtainable: No Objective Objective Last 24 Hour Vital Signs Date Time Temp Pulse Resp B/P (MAP) Pulse Ox O2 Delivery O2 Flow Rate FiO2 04/22/18 12:00 98.0 100 19 134/88 (103) 95 04/22/18 09:29 103 125/73 04/22/18 09:00 Room Air 04/22/18 08:00 98.1 103 19 125/73 (90) 95 04/22/18 00:00 98.1 98 19 117/74 (88) 95 04/21/18 21:00 Room Air 04/21/18 20:00 97.9 105 19 120/98 (105) 97 04/21/18 15:59 97.0 100 20 121/77 (92) 97 Intake and Output 04/21/18 04/22/18 19:00 07:00 Intake Total 1600 ml 250 ml Balance 1600 ml 250 ml Intake Oral 1600 ml 250 ml # Voids 3 3 Height (Feet): 5 Height (Inches): 10.00 Weight (Pounds): 163 General Appearance: no apparent distress Objective no change Al Roper MD Apr 22, 2018 13:54
--- NOTE | 2018-04-22 15:44 | NUR ---
NURSE NOTES: Patient doesn't let to be touched, unable to collect urine and wound care to give. Took picture of the wound and down loaded.
[2018-04-22 16:00] VITALS: BP 130/88
--- NOTE | 2018-04-22 19:16 | NUR ---
HAND-OFF: Report given to ANISH Lorenzo.
--- NOTE | 2018-04-22 19:20 | NUR ---
NURSE NOTES: Received patient in bed sleeping arousable to verbal stimuli. No signs of distress noted. No facial grimacing noted. No IV access MD aware. Bed in lowest position and locked. Call light within reach. Will continue to monitor.
[2018-04-22 20:00] VITALS: BP 130/77
--- NOTE | 2018-04-22 21:13 | General Progress Note ---
Assessment/Plan Assessment/Plan # Leukocytosis. Secondary to underlying infection, sepsis --> Monitor and trend wbc for improvement -->16.6-->23.0-->31.5-->9.2-->11.2 --> Peripheral smear has been reviewed, no blasts noted --> Medications have been reviewed --> Imaging has been reviewed --> Blood cultures and urine cultures prn --> has been started on abx, empiric treatment --> trend 32k-->9k-->11--> --> per ID management # Anemia of chronic disease --> anemia panel has been reviewed # FTT. # Sepsis. 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 # COPD. # Dysphasia # Schizophrenia # HTN. # Legally blind GREATLY APPRECIATE CONSULTATION. Time and date note entered in EMR does not reflect time and date of encounter. Subjective Constitutional: Denies: no symptoms, chills, diaphoresis, fever, malaise, weakness, other HEENT: Denies: no symptoms, eye pain, blurred vision, tearing, double vision, ear pain, ear discharge, nose pain, nose congestion, throat pain, throat swelling, mouth pain, mouth swelling, other Cardiovascular: Denies: no symptoms, chest pain, edema, irregular heart rate, lightheadedness, palpitations, syncope, other Respiratory: Denies: no symptoms, cough, orthopnea, shortness of breath, SOB with excertion, SOB at rest, sputum, stridor, wheezing, other Gastrointestinal/Abdominal: Denies: no symptoms, abdomen distended, abdominal pain, black stools, tarry stools, blood in stool, constipated, diarrhea, difficulty swallowing, nausea, poor appetite, poor fluid intake, rectal bleeding , vomiting, other Genitourinary: Denies: no symptoms, burning, discharge, frequency, flank pain, hematuria, incontinence, pain, urgency, other Neurologic/Psychiatric: Denies: no symptoms, anxiety, depressed, emotional problems, headache, numbness, paresthesia, pre-existing deficit, seizure, tingling, tremors, weakness, other Endocrine: Denies: no symptoms, excessive sweating, flushing, intolerance to cold, intolerance to heat, increased hunger, increased thirst, increased urine, unexplained weight gain, unexplained weight loss, other Hematologic/Lymphatic: Denies: no symptoms, anemia, easy bleeding, easy bruising, other Allergies: Coded Allergies: BENZTROPINE (Unverified Allergy, Unknown, 02/22/14) HALOPERIDOL (Unverified Allergy, Unknown, 02/22/14) PENICILLINS (Unverified Allergy, Unknown, 04/14/18) tolerated Ceftriaxone 06/2017 Subjective 04/15: Pt awake and agitated. No acute events. Pt refusing meds. 04/16: wbc severely elevated, seen by Id, on broad spectrum antifungals, foul language, very aggressive 04/18: no events, mumbling, minimally conversive, no fevers, down on ivf 04/19: pt is awake and resting in bed. refusing care, aggressive, no events 04/20: Pt is awake and alert, refusing care, minimally conversive, on abx, wbc have improved. 04/21: Pt is awake and resting in bed, aggressive, mumbling, 04/22: Pt is resting in bed. PEG has been defered, the patient has shown improvement in caloric intake and shows no signs of dysphagia or risk for aspiration. Objective Last 24 Hour Vital Signs Date Time Temp Pulse Resp B/P (MAP) Pulse Ox O2 Delivery O2 Flow Rate FiO2 04/22/18 20:00 98.2 108 18 130/77 (94) 96 04/22/18 16:00 98.9 100 19 130/88 (102) 95 04/22/18 12:00 98.0 100 19 134/88 (103) 95 04/22/18 09:29 103 125/73 04/22/18 09:00 Room Air 04/22/18 08:00 98.1 103 19 125/73 (90) 95 04/22/18 00:00 98.1 98 19 117/74 (88) 95 Intake and Output 04/21/18 04/22/18 18:59 06:59 Intake Total 1600 ml 250 ml Balance 1600 ml 250 ml Intake Oral 1600 ml 250 ml # Voids 3 3 Height (Feet): 5 Height (Inches): 10.00 Weight (Pounds): 163 Objective Vitals: Have been reviewed General Appearance: alert, agitated Head: normocephalic, atraumatic Eyes: right eye abnormal pupil - right eye has patch which covers the right temporal area of face as well from cancer ressection; left eye other - visible cataract, glassy/hazy appearance ENT: hearing grossly normal, other Neck: full range of motion Respiratory: chest non-tender, lungs clear, normal breath sounds, speaking full sentences Cardiovascular no edema, tachycardia Gastrointestinal: normal bowel sounds, non tender, soft Musculoskeletal: back normal, non-tender, other - bilateral hand contractures Skin: normal color, no rash, warm/dry Jr Daly MD Apr 22, 2018 21:13
[2018-04-22] MEDS: Tamsulosin 0.4mg cap ORAL SCH (21:18)
--- NOTE | 2018-04-22 23:19 | General Progress Note ---
Assessment/Plan Problem List: (1) Cancer ICD Codes: C80.1 - Malignant (primary) neoplasm, unspecified SNOMED: 565698121 (2) Generalized weakness ICD Codes: R53.1 - Weakness SNOMED: 54708171 (3) Severe malnutrition ICD Codes: E43 - Unspecified severe protein-calorie malnutrition SNOMED: 72333959 (4) Failure to thrive in adult ICD Codes: R62.7 - Adult failure to thrive SNOMED: 756239505 (5) Poor fluid intake ICD Codes: R63.8 - Other symptoms and signs concerning food and fluid intake SNOMED: 955872250 (6) Schizophrenia ICD Codes: F20.9 - Schizophrenia, unspecified SNOMED: 17064376 Status: progressing Assessment/Plan FTT poor appetite anemia malnurished check h/h no acute events Subjective ROS Limited/Unobtainable: Yes Allergies: Coded Allergies: BENZTROPINE (Unverified Allergy, Unknown, 02/22/14) HALOPERIDOL (Unverified Allergy, Unknown, 02/22/14) PENICILLINS (Unverified Allergy, Unknown, 04/14/18) tolerated Ceftriaxone 06/2017 Objective Last 24 Hour Vital Signs Date Time Temp Pulse Resp B/P (MAP) Pulse Ox O2 Delivery O2 Flow Rate FiO2 04/22/18 21:00 Room Air 04/22/18 20:00 98.2 108 18 130/77 (94) 96 04/22/18 16:00 98.9 100 19 130/88 (102) 95 04/22/18 12:00 98.0 100 19 134/88 (103) 95 04/22/18 09:29 103 125/73 04/22/18 09:00 Room Air 04/22/18 08:00 98.1 103 19 125/73 (90) 95 04/22/18 00:00 98.1 98 19 117/74 (88) 95 Intake and Output 04/21/18 04/22/18 18:59 06:59 Intake Total 1600 ml 250 ml Balance 1600 ml 250 ml Intake Oral 1600 ml 250 ml # Voids 3 3 Height (Feet): 5 Height (Inches): 10.00 Weight (Pounds): 163 Neck: supple Cardiovascular: normal rate Respiratory/Chest: lungs clear Cady Berg MD Apr 22, 2018 23:19
[2018-04-23] VITALS: BP 126/74
[2018-04-23 04:00] VITALS: BP 134/75
--- NOTE | 2018-04-23 06:23 | General Progress Note ---
Assessment/Plan Assessment/Plan psych f/u defer PEG, the patient has shown improvement in caloric intake and shows no signs of dysphagia or risk for aspiration. Follow-up calorie count Patient on regular diet push p.o. One-to-one feeder IV/p.o. hydration Antibiotics PPI Follow-up labs DC planning Subjective ROS Limited/Unobtainable: Yes Allergies: Coded Allergies: BENZTROPINE (Unverified Allergy, Unknown, 02/22/14) HALOPERIDOL (Unverified Allergy, Unknown, 02/22/14) PENICILLINS (Unverified Allergy, Unknown, 04/14/18) tolerated Ceftriaxone 06/2017 Objective Last 24 Hour Vital Signs Date Time Temp Pulse Resp B/P (MAP) Pulse Ox O2 Delivery O2 Flow Rate FiO2 04/23/18 04:00 98.1 105 19 134/75 (94) 96 04/23/18 00:00 98.1 103 18 126/74 (91) 96 04/22/18 21:00 Room Air 04/22/18 20:00 98.2 108 18 130/77 (94) 96 04/22/18 16:00 98.9 100 19 130/88 (102) 95 04/22/18 12:00 98.0 100 19 134/88 (103) 95 04/22/18 09:29 103 125/73 04/22/18 09:00 Room Air 04/22/18 08:00 98.1 103 19 125/73 (90) 95 Intake and Output 04/22/18 04/23/18 19:00 07:00 Intake Total 200 ml 240 ml Balance 200 ml 240 ml Intake Oral 240 ml Other 200 ml # Voids 3 # Bowel Movements 1 Height (Feet): 5 Height (Inches): 10.00 Weight (Pounds): 163 General Appearance: no apparent distress EENT: normal ENT inspection Neck: supple Cardiovascular: normal rate Respiratory/Chest: decreased breath sounds Abdomen: normal bowel sounds, non tender, soft Extremities: non-tender Juliocesar Ferguson MD Apr 23, 2018 06:23
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
--- NOTE | 2018-04-23 07:19 | NUR ---
HAND-OFF: Report given to ANISH Powell.
--- NOTE | 2018-04-23 07:43 | NUR ---
NURSE NOTES: Patient alert x1, in room air, no sign of distress and shortness of breath. Patient blind both eyes. Skin-cellulitis an redness on the right eye side. No IN access, MD aware. side rails up, breaks engaged. call light within reach, will keep monitoring.
[2018-04-23 08:00] VITALS: BP 150/82
[2018-04-23] MEDS: Heparin 5000 units/ml inj SUBQ SCH ×2 (09:00→21:00)
[2018-04-23] MEDS: Bactrim-DS 1 tab ORAL SCH ×2 (09:13→21:14)
[2018-04-23] MEDS: Magnesium Oxide 400mg tab ORAL SCH ×3 (09:13→16:53)
[2018-04-23] MEDS: Ascorbic Acid 500mg tab ORAL SCH (09:13)
[2018-04-23] MEDS: Phospha 250 Neutral tab ORAL SCH ×3 (09:14→16:53)
[2018-04-23] MEDS: Aspirin Baby 81mg ORAL SCH (09:14)
--- NOTE | 2018-04-23 09:22 | General Progress Note ---
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 SNOMED: 13813190 (2) Dehydration ICD Codes: E86.0 - Dehydration SNOMED: 87335142 (3) Basal cell carcinoma ICD Codes: C44.91 - Basal cell carcinoma of skin, unspecified SNOMED: 069383341 (4) Generalized weakness ICD Codes: R53.1 - Weakness SNOMED: 00658967 (5) Cellulitis and abscess of face ICD Codes: L03.211 - Cellulitis of face; L02.01 - Cutaneous abscess of face SNOMED: 782998217 (6) Severe malnutrition ICD Codes: E43 - Unspecified severe protein-calorie malnutrition SNOMED: 60069261 (7) Failure to thrive in adult ICD Codes: R62.7 - Adult failure to thrive SNOMED: 493895046 (8) Periorbital swelling ICD Codes: H57.8 - Periorbital swelling SNOMED: 615554099 (9) Dysphasia ICD Codes: R47.02 - Dysphasia SNOMED: 13263720 (10) HTN (hypertension) ICD Codes: I10 - Essential (primary) hypertension SNOMED: 11457414 Status: unchanged Assessment/Plan pt diet abx prn cbc bmp am Subjective Constitutional: Reports: weakness Allergies: Coded Allergies: BENZTROPINE (Unverified Allergy, Unknown, 02/22/14) HALOPERIDOL (Unverified Allergy, Unknown, 02/22/14) PENICILLINS (Unverified Allergy, Unknown, 04/14/18) tolerated Ceftriaxone 06/2017 All Systems: reviewed and negative except above Subjective calm in bed sleepy Objective Last 24 Hour Vital Signs Date Time Temp Pulse Resp B/P (MAP) Pulse Ox O2 Delivery O2 Flow Rate FiO2 04/23/18 09:14 101 150/82 04/23/18 04:00 98.1 105 19 134/75 (94) 96 04/23/18 00:00 98.1 103 18 126/74 (91) 96 04/22/18 21:00 Room Air 04/22/18 20:00 98.2 108 18 130/77 (94) 96 04/22/18 16:00 98.9 100 19 130/88 (102) 95 04/22/18 12:00 98.0 100 19 134/88 (103) 95 04/22/18 09:29 103 125/73 Intake and Output 04/22/18 04/23/18 19:00 07:00 Intake Total 200 ml 240 ml Balance 200 ml 240 ml Intake Oral 240 ml Other 200 ml # Voids 3 # Bowel Movements 1 Height (Feet): 5 Height (Inches): 10.00 Weight (Pounds): 163 General Appearance: lethargic EENT: normal ENT inspection Neck: normal alignment Cardiovascular: normal peripheral pulses, normal rate, regular rhythm Respiratory/Chest: chest wall non-tender, lungs clear, normal breath sounds Abdomen: normal bowel sounds, non tender, soft Extremities: normal inspection Edema: no edema noted Arm (L), no edema noted Arm (R), no edema noted Leg (L), no edema noted Leg (R), no edema noted Pedal (L), no edema noted Pedal (R), no edema noted Generalized Neurologic: motor weakness Skin: normal pigmentation, warm/dry Julio Higgins DO Apr 23, 2018 09:22
--- NOTE | 2018-04-23 10:52 | Nephrology Progress Note ---
Assessment/Plan Problem List: (1) Dehydration (2) HTN (hypertension) (3) Failure to thrive in adult (4) Schizophrenia Assessment (1) Dysphasia (2) Encounter for PEG (percutaneous endoscopic gastrostomy) (3) Schizophrenia (4) Failure to thrive in adult (5) Generalized weakness (6) Severe malnutrition (7) Dehydration (8) Schizophrenia (9) HTN (10) Legally Blind Plan no labs : hard stick / patient refuse Po improving- UA pending IV out on PO K and Phos Flomax Psych mangement per consultants ? DC planning Subjective ROS Limited/Unobtainable: No Constitutional: Reports: malaise Objective Objective Last 24 Hour Vital Signs Date Time Temp Pulse Resp B/P (MAP) Pulse Ox O2 Delivery O2 Flow Rate FiO2 04/23/18 09:14 101 150/82 04/23/18 09:00 Room Air 04/23/18 08:00 97.5 101 19 150/82 (104) 95 04/23/18 04:00 98.1 105 19 134/75 (94) 96 04/23/18 00:00 98.1 103 18 126/74 (91) 96 04/22/18 21:00 Room Air 04/22/18 20:00 98.2 108 18 130/77 (94) 96 04/22/18 16:00 98.9 100 19 130/88 (102) 95 04/22/18 12:00 98.0 100 19 134/88 (103) 95 Intake and Output 04/22/18 04/23/18 19:00 07:00 Intake Total 200 ml 240 ml Balance 200 ml 240 ml Intake Oral 240 ml Other 200 ml # Voids 3 # Bowel Movements 1 Height (Feet): 5 Height (Inches): 10.00 Weight (Pounds): 163 General Appearance: no apparent distress Objective no change Al Roper MD Apr 23, 2018 10:52
[2018-04-23 12:00] VITALS: BP 135/86
--- NOTE | 2018-04-23 14:26 | NUR ---
NURSE NOTES: Patient's sister Frankie John called to find out about patient.
[2018-04-23 16:00] VITALS: BP 136/83
--- NOTE | 2018-04-23 17:30 | NUR ---
NURSE NOTES: Received patient in bed, No acute distress noted, No c/o pain or any discomfort noted, Bed in lowest position and lock engaged, Bed alarm is on, call light and need with in reach, Will continue to monitor.
--- NOTE | 2018-04-23 19:15 | NUR ---
NURSE NOTES: Received patient in bed awake, able to make a conversation and laughing, response when called by his name, more alert today. No facial grimacing noted. Bed in lowest position and locked. Call light within reach. Will continue to monitor.
--- NOTE | 2018-04-23 19:16 | NUR ---
HAND-OFF: Report given to ANISH Lorenzo.
[2018-04-23 20:00] VITALS: BP 138/88
[2018-04-23] MEDS: Tamsulosin 0.4mg cap ORAL SCH (21:14)
--- NOTE | 2018-04-23 21:45 | General Progress Note ---
Assessment/Plan Assessment/Plan # Leukocytosis. Secondary to underlying infection, sepsis --> Monitor and trend wbc for improvement -->16.6-->23.0-->31.5-->9.2-->11.2 --> Peripheral smear has been reviewed, no blasts noted --> Medications have been reviewed --> Imaging has been reviewed --> Blood cultures and urine cultures prn --> has been started on abx, empiric treatment --> trend 32k-->9k-->11--> --> per ID management # Anemia of chronic disease --> anemia panel has been reviewed # FTT. # Sepsis. 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 # COPD. # Dysphasia # Schizophrenia # HTN. # Legally blind GREATLY APPRECIATE CONSULTATION. Time and date note entered in EMR does not reflect time and date of encounter. Subjective Constitutional: Denies: no symptoms, chills, diaphoresis, fever, malaise, weakness, other HEENT: Denies: no symptoms, eye pain, blurred vision, tearing, double vision, ear pain, ear discharge, nose pain, nose congestion, throat pain, throat swelling, mouth pain, mouth swelling, other Cardiovascular: Denies: no symptoms, chest pain, edema, irregular heart rate, lightheadedness, palpitations, syncope, other Respiratory: Denies: no symptoms, cough, orthopnea, shortness of breath, SOB with excertion, SOB at rest, sputum, stridor, wheezing, other Gastrointestinal/Abdominal: Denies: no symptoms, abdomen distended, abdominal pain, black stools, tarry stools, blood in stool, constipated, diarrhea, difficulty swallowing, nausea, poor appetite, poor fluid intake, rectal bleeding , vomiting, other Genitourinary: Denies: no symptoms, burning, discharge, frequency, flank pain, hematuria, incontinence, pain, urgency, other Neurologic/Psychiatric: Denies: no symptoms, anxiety, depressed, emotional problems, headache, numbness, paresthesia, pre-existing deficit, seizure, tingling, tremors, weakness, other Endocrine: Denies: no symptoms, excessive sweating, flushing, intolerance to cold, intolerance to heat, increased hunger, increased thirst, increased urine, unexplained weight gain, unexplained weight loss, other Hematologic/Lymphatic: Denies: no symptoms, anemia, easy bleeding, easy bruising, other Allergies: Coded Allergies: BENZTROPINE (Unverified Allergy, Unknown, 02/22/14) HALOPERIDOL (Unverified Allergy, Unknown, 02/22/14) PENICILLINS (Unverified Allergy, Unknown, 04/14/18) tolerated Ceftriaxone 06/2017 Subjective 04/15: Pt awake and agitated. No acute events. Pt refusing meds. 04/16: wbc severely elevated, seen by Id, on broad spectrum antifungals, foul language, very aggressive 04/18: no events, mumbling, minimally conversive, no fevers, down on ivf 04/19: pt is awake and resting in bed. refusing care, aggressive, no events 04/20: Pt is awake and alert, refusing care, minimally conversive, on abx, wbc have improved. 04/21: Pt is awake and resting in bed, aggressive, mumbling, 04/22: Pt is resting in bed. PEG has been defered, the patient has shown improvement in caloric intake and shows no signs of dysphagia or risk for aspiration. 04/23: Pt is seen in the room, resting in bed, refusing care, on abx, pending labs Objective Last 24 Hour Vital Signs Date Time Temp Pulse Resp B/P (MAP) Pulse Ox O2 Delivery O2 Flow Rate FiO2 04/23/18 16:00 98.6 102 19 136/83 (100) 99 04/23/18 12:00 97.0 85 18 135/86 (102) 96 04/23/18 09:14 101 150/82 04/23/18 09:00 Room Air 04/23/18 08:00 97.5 101 19 150/82 (104) 95 04/23/18 04:00 98.1 105 19 134/75 (94) 96 04/23/18 00:00 98.1 103 18 126/74 (91) 96 Intake and Output 04/22/18 04/23/18 19:00 07:00 Intake Total 200 ml 240 ml Balance 200 ml 240 ml Intake Oral 240 ml Other 200 ml # Voids 3 # Bowel Movements 1 Height (Feet): 5 Height (Inches): 10.00 Weight (Pounds): 163 Objective Vitals: Have been reviewed General Appearance: alert, agitated Head: normocephalic, atraumatic Eyes: right eye abnormal pupil - right eye has patch which covers the right temporal area of face as well from cancer ressection; left eye other - visible cataract, glassy/hazy appearance ENT: hearing grossly normal, other Neck: full range of motion Respiratory: chest non-tender, lungs clear, normal breath sounds, speaking full sentences Cardiovascular no edema, tachycardia Gastrointestinal: normal bowel sounds, non tender, soft Musculoskeletal: back normal, non-tender, other - bilateral hand contractures Skin: normal color, no rash, warm/dry Jr Daly MD Apr 23, 2018 21:45
[2018-04-24] VITALS: BP 133/81
[2018-04-24 04:00] VITALS: BP 139/79
--- NOTE | 2018-04-24 04:54 | NUR ---
NURSE NOTES: Patient refused blood draw, patient getting combative and cursing staff. Labs will try later.
--- NOTE | 2018-04-24 06:23 | NUR ---
NURSE NOTES: Spoke with Dr. Daly re patient refusing blood draw and UA still pending due to patient being non cooperative. Getting combative and trying to hit staff.
[2018-04-24] MEDS ORDERED: LORazepam 1mg tab ORAL PRN (07:00)
--- NOTE | 2018-04-24 07:30 | NUR ---
HAND-OFF: Report given to /ANISH Spring.
--- NOTE | 2018-04-24 07:39 | NUR ---
NURSE NOTES: Received patient from Michelle RN, patient is up in bed, no distress noted, patient agitated and yelling at RN during morning rounds, bed is locked and in lowest position, call light within reach, will continue to monitor.
[2018-04-24 08:00] VITALS: BP 116/88
--- NOTE | 2018-04-24 08:06 | General Progress Note ---
Assessment/Plan Assessment/Plan # Leukocytosis. Secondary to underlying infection, sepsis --> Monitor and trend wbc for improvement -->16.6-->23.0-->31.5-->9.2-->11.2 --> Peripheral smear has been reviewed, no blasts noted --> Medications have been reviewed --> Imaging has been reviewed --> Blood cultures and urine cultures prn --> has been started on abx, empiric treatment --> trend 32k-->9k-->1 --> per ID management # Anemia of chronic disease --> anemia panel has been reviewed --> trend hgb 12.8-->10.2 # FTT. # Sepsis. 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 # COPD. # Dysphasia # Schizophrenia # HTN. # Legally blind Time and date note entered in EMR does not reflect time and date of encounter. GREATLY APPRECIATE CONSULTATION. Subjective Constitutional: Denies: no symptoms, chills, diaphoresis, fever, malaise, weakness, other Cardiovascular: Denies: no symptoms, chest pain, edema, irregular heart rate, lightheadedness, palpitations, syncope, other Respiratory: Denies: no symptoms, cough, orthopnea, shortness of breath, SOB with excertion, SOB at rest, sputum, stridor, wheezing, other Gastrointestinal/Abdominal: Denies: no symptoms, abdomen distended, abdominal pain, black stools, tarry stools, blood in stool, constipated, diarrhea, difficulty swallowing, nausea, poor appetite, poor fluid intake, rectal bleeding , vomiting, other Genitourinary: Denies: no symptoms, burning, discharge, frequency, flank pain, hematuria, incontinence, pain, urgency, other Neurologic/Psychiatric: Denies: no symptoms, anxiety, depressed, emotional problems, headache, numbness, paresthesia, pre-existing deficit, seizure, tingling, tremors, weakness, other Endocrine: Denies: no symptoms, excessive sweating, flushing, intolerance to cold, intolerance to heat, increased hunger, increased thirst, increased urine, unexplained weight gain, unexplained weight loss, other Allergies: Coded Allergies: BENZTROPINE (Unverified Allergy, Unknown, 02/22/14) HALOPERIDOL (Unverified Allergy, Unknown, 02/22/14) PENICILLINS (Unverified Allergy, Unknown, 04/14/18) tolerated Ceftriaxone 06/2017 Subjective 04/15: Pt awake and agitated. No acute events. Pt refusing meds. 04/16: wbc severely elevated, seen by Id, on broad spectrum antifungals, foul language, very aggressive 04/18: no events, mumbling, minimally conversive, no fevers, down on ivf 04/19: pt is awake and resting in bed. refusing care, aggressive, no events 04/20: Pt is awake and alert, refusing care, minimally conversive, on abx, wbc have improved. 04/21: Pt is awake and resting in bed, aggressive, mumbling, 04/22: Pt is resting in bed. PEG has been defered, the patient has shown improvement in caloric intake and shows no signs of dysphagia or risk for aspiration. 04/23: Pt is seen in the room, resting in bed, refusing care, on abx, pending labs 17/: No events, has been agitated overnight, refusing care Objective Last 24 Hour Vital Signs Date Time Temp Pulse Resp B/P (MAP) Pulse Ox O2 Delivery O2 Flow Rate FiO2 04/24/18 04:00 97.7 76 18 139/79 (99) 100 04/24/18 00:00 97.9 71 18 133/81 (98) 100 04/23/18 21:00 Room Air 04/23/18 20:00 98.0 75 20 138/88 (105) 97 04/23/18 16:00 98.6 102 19 136/83 (100) 99 04/23/18 12:00 97.0 85 18 135/86 (102) 96 04/23/18 09:14 101 150/82 04/23/18 09:00 Room Air Intake and Output 04/23/18 04/24/18 18:59 06:59 Intake Total 120 ml Balance 120 ml Intake Oral 120 ml # Voids 4 Height (Feet): 5 Height (Inches): 10.00 Weight (Pounds): 163 Objective Vitals: Have been reviewed General Appearance: alert, agitated Head: normocephalic, atraumatic Eyes: right eye abnormal pupil - right eye has patch which covers the right temporal area of face as well from cancer ressection; left eye other - visible cataract, glassy/hazy appearance, unchanged ENT: hearing grossly normal, other Neck: full range of motion Respiratory: chest non-tender, lungs clear, normal breath sounds, speaking full sentences Cardiovascular no edema, tachycardia Gastrointestinal: normal bs, non tender, soft MSK: back normal, non-tender, bilateral hand contractures Skin: normal color, no rash, warm/dry Jr Daly MD Apr 24, 2018 08:06
[2018-04-24] MEDS: Aspirin Baby 81mg ORAL SCH ×2 (09:00→09:02)
[2018-04-24] MEDS: Heparin 5000 units/ml inj SUBQ SCH ×2 (09:00→21:00)
[2018-04-24] MEDS: Phospha 250 Neutral tab ORAL SCH ×4 (09:00→18:00)
[2018-04-24] MEDS: Ascorbic Acid 500mg tab ORAL SCH ×2 (09:00→09:01)
[2018-04-24] MEDS: Magnesium Oxide 400mg tab ORAL SCH ×4 (09:00→18:00)
[2018-04-24] MEDS: Bactrim-DS 1 tab ORAL SCH ×2 (09:00→21:43)
--- NOTE | 2018-04-24 11:00 | Infectious Diseases Prog Note ---
Assessment/Plan Assessment/Plan Sepsis- ?source- r/o UTI, PNA Afebrile Leukocytosis, increased ? 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 Wnd Cx : GPC -hx of superinfected necrotic mass and possible micro abscess s/p Tx 06/2017 -wound cx MRSA, diphterouids, ESBL Proteus 04/14/19 Wound Cx Providencia and MRSA FTT COPD dysphasia schizophrenia HTN MDD legally blind hx of VRE/MRSA colonization Plan: - Continue PO Bactrim DS BID end date 04/24/18 - 04/20/18 SP empiric Azactam , Flagyl and IV Vanco d# 6/10 - 04/15/18 SP Ceftriaxone d# 2 -Monitor CBC/CMP, temperatures Subjective Allergies: Coded Allergies: BENZTROPINE (Unverified Allergy, Unknown, 02/22/14) HALOPERIDOL (Unverified Allergy, Unknown, 02/22/14) PENICILLINS (Unverified Allergy, Unknown, 04/14/18) tolerated Ceftriaxone 06/2017 Subjective Afebrile Objective Vital Signs Last 24 Hour Vital Signs Date Time Temp Pulse Resp B/P (MAP) Pulse Ox O2 Delivery O2 Flow Rate FiO2 04/24/18 08:00 Room Air 04/24/18 04:00 97.7 76 18 139/79 (99) 100 04/24/18 00:00 97.9 71 18 133/81 (98) 100 04/23/18 21:00 Room Air 04/23/18 20:00 98.0 75 20 138/88 (105) 97 04/23/18 16:00 98.6 102 19 136/83 (100) 99 04/23/18 12:00 97.0 85 18 135/86 (102) 96 Height (Feet): 5 Height (Inches): 10.00 Weight (Pounds): 163 Objective General: NAD, irritable HEENT: NCAT, right eye has patch which covers the right temporal area of face as well, left eye - visible cataract, glassy/hazy appearance Respiratory: CATB, No W/C Cardiovascular no edema, tachycardia Gastrointestinal: normal bowel sounds, non tender, soft Current Medications Medications (Trade) Dose Ordered Sig/Jordi Route PRN Reason Start Time Stop Time Status Last Admin Dose Admin Amlodipine Besylate (Norvasc) 5 mg DAILY ORAL 04/14/18 09:00 05/14/18 08:59 04/23/18 09:14 Ascorbic Acid (Vitamin C) 500 mg DAILY ORAL 04/14/18 09:00 05/14/18 08:59 04/23/18 09:13 Aspirin (ASA) 81 mg DAILY ORAL 04/14/18 09:00 05/14/18 08:59 04/23/18 09:14 Famotidine (Pepcid) 20 mg BID ORAL 04/18/18 18:00 05/18/18 17:59 04/23/18 16:53 Heparin Sodium (Porcine) (Heparin 5000 units/ml) 5,000 units EVERY 12 HOURS SUBQ 04/14/18 09:00 05/14/18 08:59 04/21/18 09:19 Lorazepam (Ativan) 1 mg TIDPRN PRN ORAL For Anxiety 04/24/18 07:00 05/01/18 06:59 Magnesium Oxide (Mag-Ox 400mg) 400 mg THREE TIMES A DAY ORAL 04/20/18 13:00 05/20/18 12:59 04/23/18 16:53 Multivitamins (Multivitamins) 1 tab DAILY ORAL 04/14/18 09:00 05/14/18 08:59 04/23/18 09:13 Phosphorus (Phospha 250 Neutral) 500 mg THREE TIMES A DAY ORAL 04/20/18 13:00 05/20/18 12:59 04/23/18 16:53 Quetiapine Fumarate (SEROquel) 150 mg EVERY 8 HOURS ORAL 04/21/18 06:00 05/21/18 05:59 04/24/18 05:58 Tamsulosin HCl (Flomax) 0.4 mg BEDTIME ORAL 04/16/18 21:00 05/16/18 20:59 04/23/18 21:14 Trimethoprim/ Sulfamethoxazole (Bactrim-DS) 1 tab Q12HR ORAL 04/21/18 21:00 04/24/18 23:59 04/23/18 21:14 Jozef Greene MD Apr 24, 2018 11:00
--- NOTE | 2018-04-24 11:07 | GI Progress Note ---
Assessment/Plan Problems: (1) Dysphasia ICD Codes: R47.02 - Dysphasia SNOMED: 79616323 (2) Schizophrenia ICD Codes: F20.9 - Schizophrenia, unspecified SNOMED: 08348227 (3) Poor fluid intake ICD Codes: R63.8 - Other symptoms and signs concerning food and fluid intake SNOMED: 769188409 (4) Failure to thrive in adult ICD Codes: R62.7 - Adult failure to thrive SNOMED: 889789341 (5) Severe malnutrition ICD Codes: E43 - Unspecified severe protein-calorie malnutrition SNOMED: 42448400 (6) Dehydration ICD Codes: E86.0 - Dehydration SNOMED: 62619439 (7) Schizophreniform psychosis ICD Codes: F20.9 - Schizophreniform psychosis SNOMED: 65378581 (8) Cellulitis and abscess of face ICD Codes: L03.211 - Cellulitis of face; L02.01 - Cutaneous abscess of face SNOMED: 568118896 Status: unchanged Status Narrative Discussed with Dr. Ferguson Assessment/Plan psych f/u defer PEG, the patient has shown improvement in caloric intake and shows no signs of dysphagia or risk for aspiration. Follow-up calorie count Patient on regular diet push p.o. One-to-one feeder IV/p.o. hydration Antibiotics PPI Follow-up labs DC planning The patient was seen and examined at bedside and all new and available data was reviewed in the patients chart. I agree with the above findings, impression and plan. (Patient seen earlier today. Signature stamp does not reflect patient encounter time.). - Juliocesar Ferguson MD Subjective Gastrointestinal/Abdominal: Reports: no symptoms Subjective Limited Objective Last 24 Hour Vital Signs Date Time Temp Pulse Resp B/P (MAP) Pulse Ox O2 Delivery O2 Flow Rate FiO2 04/24/18 08:00 Room Air 04/24/18 04:00 97.7 76 18 139/79 (99) 100 04/24/18 00:00 97.9 71 18 133/81 (98) 100 04/23/18 21:00 Room Air 04/23/18 20:00 98.0 75 20 138/88 (105) 97 04/23/18 16:00 98.6 102 19 136/83 (100) 99 04/23/18 12:00 97.0 85 18 135/86 (102) 96 Intake and Output 1/6/19 1/7/19 19:00 07:00 Intake Total 120 ml Balance 120 ml Intake Oral 120 ml # Voids 4 Height (Feet): 5 Height (Inches): 10.00 Weight (Pounds): 163 General Appearance: WD/WN, no apparent distress, alert Cardiovascular: normal rate Respiratory/Chest: normal breath sounds, no respiratory distress Abdominal Exam: normal bowel sounds, non tender, soft Extremities: non-tender Objective Legally blind Roxanna Saavedra NP Apr 24, 2018 11:07
--- NOTE | 2018-04-24 11:13 | Nephrology Progress Note ---
Assessment/Plan Problem List: (1) Dehydration (2) HTN (hypertension) (3) Failure to thrive in adult (4) Schizophrenia Assessment (1) Dysphasia (2) Encounter for PEG (percutaneous endoscopic gastrostomy) (3) Schizophrenia (4) Failure to thrive in adult (5) Generalized weakness (6) Severe malnutrition (7) Dehydration (8) Schizophrenia (9) HTN (10) Legally Blind Plan Po improving- UA pending IV out on PO K and Phos Flomax Psych mangement per consultants ? DC planning Subjective ROS Limited/Unobtainable: No Objective Objective Last 24 Hour Vital Signs Date Time Temp Pulse Resp B/P (MAP) Pulse Ox O2 Delivery O2 Flow Rate FiO2 04/24/18 08:00 Room Air 04/24/18 04:00 97.7 76 18 139/79 (99) 100 04/24/18 00:00 97.9 71 18 133/81 (98) 100 04/23/18 21:00 Room Air 04/23/18 20:00 98.0 75 20 138/88 (105) 97 04/23/18 16:00 98.6 102 19 136/83 (100) 99 04/23/18 12:00 97.0 85 18 135/86 (102) 96 Intake and Output 04/23/18 04/24/18 19:00 07:00 Intake Total 120 ml Balance 120 ml Intake Oral 120 ml # Voids 4 Current Medications Medications (Trade) Dose Ordered Sig/Jordi Route PRN Reason Start Time Stop Time Status Last Admin Dose Admin Amlodipine Besylate (Norvasc) 5 mg DAILY ORAL 04/14/18 09:00 05/14/18 08:59 04/23/18 09:14 Ascorbic Acid (Vitamin C) 500 mg DAILY ORAL 04/14/18 09:00 05/14/18 08:59 04/23/18 09:13 Aspirin (ASA) 81 mg DAILY ORAL 04/14/18 09:00 05/14/18 08:59 04/23/18 09:14 Famotidine (Pepcid) 20 mg BID ORAL 04/18/18 18:00 05/18/18 17:59 04/23/18 16:53 Heparin Sodium (Porcine) (Heparin 5000 units/ml) 5,000 units EVERY 12 HOURS SUBQ 04/14/18 09:00 05/14/18 08:59 04/21/18 09:19 Lorazepam (Ativan) 1 mg TIDPRN PRN ORAL For Anxiety 04/24/18 07:00 05/01/18 06:59 Magnesium Oxide (Mag-Ox 400mg) 400 mg THREE TIMES A DAY ORAL 04/20/18 13:00 05/20/18 12:59 04/23/18 16:53 Multivitamins (Multivitamins) 1 tab DAILY ORAL 04/14/18 09:00 05/14/18 08:59 04/23/18 09:13 Phosphorus (Phospha 250 Neutral) 500 mg THREE TIMES A DAY ORAL 04/20/18 13:00 05/20/18 12:59 04/23/18 16:53 Quetiapine Fumarate (SEROquel) 150 mg EVERY 8 HOURS ORAL 04/21/18 06:00 05/21/18 05:59 04/24/18 05:58 Tamsulosin HCl (Flomax) 0.4 mg BEDTIME ORAL 04/16/18 21:00 05/16/18 20:59 04/23/18 21:14 Trimethoprim/ Sulfamethoxazole (Bactrim-DS) 1 tab Q12HR ORAL 04/21/18 21:00 04/24/18 23:59 04/23/18 21:14 Height (Feet): 5 Height (Inches): 10.00 Weight (Pounds): 163 General Appearance: no apparent distress Respiratory/Chest: lungs clear Abdomen: soft Objective no change Al Roper MD Apr 24, 2018 11:12
[2018-04-24 12:00] VITALS: BP 138/74
--- NOTE | 2018-04-24 12:15 | General Progress Note ---
Assessment/Plan Problem List: (1) Schizophrenia ICD Codes: F20.9 - Schizophrenia, unspecified SNOMED: 35932407 (2) Failure to thrive in adult ICD Codes: R62.7 - Adult failure to thrive SNOMED: 540488331 Status: unchanged Assessment/Plan prolexin dec IM ativan Im Recommend hospice placement. Subjective Neurologic/Psychiatric: Reports: anxiety, depressed, emotional problems Allergies: Coded Allergies: BENZTROPINE (Unverified Allergy, Unknown, 02/22/14) HALOPERIDOL (Unverified Allergy, Unknown, 02/22/14) PENICILLINS (Unverified Allergy, Unknown, 04/14/18) tolerated Ceftriaxone 06/2017 Subjective the pt cont to be agitated and confused. refusing meds Objective Last 24 Hour Vital Signs Date Time Temp Pulse Resp B/P (MAP) Pulse Ox O2 Delivery O2 Flow Rate FiO2 04/24/18 08:00 Room Air 04/24/18 04:00 97.7 76 18 139/79 (99) 100 04/24/18 00:00 97.9 71 18 133/81 (98) 100 04/23/18 21:00 Room Air 04/23/18 20:00 98.0 75 20 138/88 (105) 97 04/23/18 16:00 98.6 102 19 136/83 (100) 99 Intake and Output 04/23/18 04/24/18 19:00 07:00 Intake Total 120 ml Balance 120 ml Intake Oral 120 ml # Voids 4 Height (Feet): 5 Height (Inches): 10.00 Weight (Pounds): 163 General Appearance: alert, confused, agitated Nathaniel Davis MD Apr 24, 2018 12:15
--- NOTE | 2018-04-24 13:18 | NUR ---
CASE MANAGEMENT: REVIEW SI: FAILURE TO THRIVE T 98.6 HR 110 RR 20 BP 152/83 SAT 94% ROOM AIR IS: PHOSPHORUS PO TID MAG OX 400MG PPO TID HEPARIN SQ Q12HR MED/SURG UNIT STATUS DCP: PATIENT IS FROM [facility]
--- NOTE | 2018-04-24 13:31 | General Progress Note ---
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 SNOMED: 09627445 (2) Dehydration ICD Codes: E86.0 - Dehydration SNOMED: 22011105 (3) Basal cell carcinoma ICD Codes: C44.91 - Basal cell carcinoma of skin, unspecified SNOMED: 361741504 (4) Generalized weakness ICD Codes: R53.1 - Weakness SNOMED: 49770410 (5) Cellulitis and abscess of face ICD Codes: L03.211 - Cellulitis of face; L02.01 - Cutaneous abscess of face SNOMED: 393483072 (6) Severe malnutrition ICD Codes: E43 - Unspecified severe protein-calorie malnutrition SNOMED: 02973959 (7) Failure to thrive in adult ICD Codes: R62.7 - Adult failure to thrive SNOMED: 382970502 (8) Periorbital swelling ICD Codes: H57.8 - Periorbital swelling SNOMED: 411119989 (9) Dysphasia ICD Codes: R47.02 - Dysphasia SNOMED: 93222075 (10) HTN (hypertension) ICD Codes: I10 - Essential (primary) hypertension SNOMED: 95549523 Status: stable, progressing Assessment/Plan pt diet abx prn cbc bmp am Subjective Constitutional: Reports: weakness Allergies: Coded Allergies: BENZTROPINE (Unverified Allergy, Unknown, 02/22/14) HALOPERIDOL (Unverified Allergy, Unknown, 02/22/14) PENICILLINS (Unverified Allergy, Unknown, 04/14/18) tolerated Ceftriaxone 06/2017 All Systems: reviewed and negative except above Subjective calm in bed sleepy Objective Last 24 Hour Vital Signs Date Time Temp Pulse Resp B/P (MAP) Pulse Ox O2 Delivery O2 Flow Rate FiO2 04/24/18 08:00 Room Air 04/24/18 08:00 98.1 110 20 116/88 (97) 97 04/24/18 04:00 97.7 76 18 139/79 (99) 100 04/24/18 00:00 97.9 71 18 133/81 (98) 100 04/23/18 21:00 Room Air 04/23/18 20:00 98.0 75 20 138/88 (105) 97 04/23/18 16:00 98.6 102 19 136/83 (100) 99 Intake and Output 04/23/18 04/24/18 19:00 07:00 Intake Total 120 ml Balance 120 ml Intake Oral 120 ml # Voids 4 Height (Feet): 5 Height (Inches): 10.00 Weight (Pounds): 163 General Appearance: lethargic EENT: normal ENT inspection Neck: normal alignment Cardiovascular: normal peripheral pulses, normal rate, regular rhythm Respiratory/Chest: chest wall non-tender, lungs clear, normal breath sounds Abdomen: normal bowel sounds, non tender, soft Extremities: normal inspection Edema: no edema noted Arm (L), no edema noted Arm (R), no edema noted Leg (L), no edema noted Leg (R), no edema noted Pedal (L), no edema noted Pedal (R), no edema noted Generalized Neurologic: motor weakness Skin: normal pigmentation, warm/dry Julio Higgins DO Apr 24, 2018 13:31
[2018-04-24 16:00] VITALS: BP 152/83
[2018-04-24] MEDS: LORazepam 1mg tab ORAL SCH (18:00)
--- NOTE | 2018-04-24 19:40 | NUR ---
NURSE NOTES: Received patient in bed, awake and alert, No acute distress noted, No c/o pain or any discomfort noted at this time, Bed in lowest position and locked, Call light and need with in reach, Will continue plan of care.
[2018-04-24 20:00] VITALS: BP 138/81
--- NOTE | 2018-04-24 20:01 | NUR ---
HAND-OFF: Report given to Josette OCONNELL.
[2018-04-24] MEDS: Tamsulosin 0.4mg cap ORAL SCH (21:43)
--- NOTE | 2018-04-25 04:10 | NUR ---
NURSE NOTES: Attempted to collect urine specimen but, patient refused, Explained benefits and risks, but, patient insisted.
--- NOTE | 2018-04-25 07:31 | NUR ---
HAND-OFF: Report given to ANISH Rae.
[2018-04-25 07:57] VITALS: BP 140/85
--- NOTE | 2018-04-25 08:02 | NUR ---
NURSE NOTES: relayed to md that pt is tachycardic, also relayed recent labs, afebrile, pt refused iv for now. pt is ao2, no distress. no sob. received order for ekg and dr Branch consult
[2018-04-25] MEDS: LORazepam 1mg tab ORAL SCH ×2 (08:53→17:20)
[2018-04-25] MEDS: Aspirin Baby 81mg ORAL SCH (08:53)
[2018-04-25] MEDS: Magnesium Oxide 400mg tab ORAL SCH ×3 (08:57→17:20)
[2018-04-25] MEDS: Ascorbic Acid 500mg tab ORAL SCH (08:57)
[2018-04-25] MEDS: Phospha 250 Neutral tab ORAL SCH ×3 (08:57→17:20)
[2018-04-25] MEDS: Heparin 5000 units/ml inj SUBQ SCH ×2 (08:58→21:40)
--- NOTE | 2018-04-25 09:07 | NUR ---
NURSE NOTES: pt refused multiple times ekg made aware of this. pt refused some meds as recorded in chart , pt has episodes of screaming while having a conversation. pt also refused labs
--- NOTE | 2018-04-25 10:00 | NUR ---
NURSE NOTES: left msg to Dr Blackmon voicemail re consult. pt has intermittent agitation episodes and sudden verbal outbursts and refusing meds
--- NOTE | 2018-04-25 10:42 | Infectious Diseases Prog Note ---
Assessment/Plan Assessment/Plan Sepsis- ?source- r/o UTI, PNA Afebrile Leukocytosis, increased ? 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 Wnd Cx : GPC -hx of superinfected necrotic mass and possible micro abscess s/p Tx 06/2017 -wound cx MRSA, diphterouids, ESBL Proteus 04/14/19 Wound Cx Providencia and MRSA FTT COPD dysphasia schizophrenia HTN MDD legally blind hx of VRE/MRSA colonization Plan: - Continue to monitor off abx - 04/24/18 SP PO Bactrim DS BID - 04/20/18 SP empiric Azactam , Flagyl and IV Vanco d# 6/10 - 04/15/18 SP Ceftriaxone d# 2 -Monitor CBC/CMP, temperatures Subjective Allergies: Coded Allergies: BENZTROPINE (Unverified Allergy, Unknown, 02/22/14) HALOPERIDOL (Unverified Allergy, Unknown, 02/22/14) PENICILLINS (Unverified Allergy, Unknown, 04/14/18) tolerated Ceftriaxone 06/2017 Subjective Patient irritable Reports no pain Afebrile Objective Vital Signs Last 24 Hour Vital Signs Date Time Temp Pulse Resp B/P (MAP) Pulse Ox O2 Delivery O2 Flow Rate FiO2 04/25/18 09:02 Room Air 04/25/18 08:53 120 140/85 04/25/18 08:36 98.2 04/25/18 07:57 120 20 140/85 (103) 97 04/24/18 21:00 Room Air 04/24/18 20:00 98.2 104 17 138/81 (100) 94 04/24/18 16:00 98.6 107 20 152/83 (106) 94 04/24/18 12:00 97.8 110 20 138/74 (95) 94 Height (Feet): 5 Height (Inches): 10.00 Weight (Pounds): 163 Objective General: NAD HEENT: NCAT, right eye has patch which covers the right temporal area of face as well, left eye - visible cataract, glassy/hazy appearance Respiratory: CATB, No W/C Cardiovascular no edema, tachycardia Gastrointestinal: normal bowel sounds, non tender, soft Current Medications Medications (Trade) Dose Ordered Sig/Jordi Route PRN Reason Start Time Stop Time Status Last Admin Dose Admin Amlodipine Besylate (Norvasc) 5 mg DAILY ORAL 04/14/18 09:00 05/14/18 08:59 04/25/18 08:53 Ascorbic Acid (Vitamin C) 500 mg DAILY ORAL 04/14/18 09:00 05/14/18 08:59 04/23/18 09:13 Aspirin (ASA) 81 mg DAILY ORAL 04/14/18 09:00 05/14/18 08:59 04/25/18 08:53 Famotidine (Pepcid) 20 mg BID ORAL 04/18/18 18:00 05/18/18 17:59 04/25/18 08:53 Heparin Sodium (Porcine) (Heparin 5000 units/ml) 5,000 units EVERY 12 HOURS SUBQ 04/14/18 09:00 05/14/18 08:59 04/21/18 09:19 Lorazepam (Ativan) 2 mg BID ORAL 04/24/18 18:00 05/01/18 17:59 04/25/18 08:53 Magnesium Oxide (Mag-Ox 400mg) 400 mg THREE TIMES A DAY ORAL 04/20/18 13:00 05/20/18 12:59 04/23/18 16:53 Multivitamins (Multivitamins) 1 tab DAILY ORAL 04/14/18 09:00 05/14/18 08:59 04/25/18 08:53 Phosphorus (Phospha 250 Neutral) 500 mg THREE TIMES A DAY ORAL 04/20/18 13:00 05/20/18 12:59 04/23/18 16:53 Quetiapine Fumarate (SEROquel) 150 mg EVERY 8 HOURS ORAL 04/21/18 06:00 05/21/18 05:59 04/25/18 05:28 Tamsulosin HCl (Flomax) 0.4 mg BEDTIME ORAL 04/16/18 21:00 05/16/18 20:59 04/24/18 21:43 Jozef Greene MD Apr 25, 2018 10:42
--- NOTE | 2018-04-25 11:34 | Cardiac Electrophysiology PN ---
Subjective Subjective [id number] Objective Last 24 Hour Vital Signs Date Time Temp Pulse Resp B/P (MAP) Pulse Ox O2 Delivery O2 Flow Rate FiO2 04/25/18 09:02 Room Air 04/25/18 08:53 120 140/85 04/25/18 08:36 98.2 04/25/18 07:57 120 20 140/85 (103) 97 04/24/18 21:00 Room Air 04/24/18 20:00 98.2 104 17 138/81 (100) 94 04/24/18 16:00 98.6 107 20 152/83 (106) 94 04/24/18 12:00 97.8 110 20 138/74 (95) 94 Intake and Output 04/24/18 04/25/18 18:59 06:59 Intake Total 1630 ml Output Total 1401 ml 300 ml Balance 229 ml -300 ml Intake Oral 1630 ml Output Urine Total 1400 ml 300 ml Stool Total 1 ml # Voids 3 Teto Branch MD Apr 25, 2018 11:34
--- NOTE | 2018-04-25 11:50 | General Progress Note ---
Assessment/Plan Problem List: (1) Schizophrenia ICD Codes: F20.9 - Schizophrenia, unspecified SNOMED: 65583849 (2) Failure to thrive in adult ICD Codes: R62.7 - Adult failure to thrive SNOMED: 006228557 Status: stable Assessment/Plan prolexin dec IM ativan Im Recommend hospice placement. Subjective Neurologic/Psychiatric: Reports: anxiety Allergies: Coded Allergies: BENZTROPINE (Unverified Allergy, Unknown, 02/22/14) HALOPERIDOL (Unverified Allergy, Unknown, 02/22/14) PENICILLINS (Unverified Allergy, Unknown, 04/14/18) tolerated Ceftriaxone 06/2017 Subjective the pt cont to be agitated and confused.cont to be uncooperative the pt lacks capacity to refuse meds/ Objective Last 24 Hour Vital Signs Date Time Temp Pulse Resp B/P (MAP) Pulse Ox O2 Delivery O2 Flow Rate FiO2 04/25/18 09:02 Room Air 04/25/18 08:53 120 140/85 04/25/18 08:36 98.2 04/25/18 07:57 120 20 140/85 (103) 97 04/24/18 21:00 Room Air 04/24/18 20:00 98.2 104 17 138/81 (100) 94 04/24/18 16:00 98.6 107 20 152/83 (106) 94 04/24/18 12:00 97.8 110 20 138/74 (95) 94 Intake and Output 04/24/18 04/25/18 19:00 07:00 Intake Total 1630 ml Output Total 1401 ml 300 ml Balance 229 ml -300 ml Intake Oral 1630 ml Output Urine Total 1400 ml 300 ml Stool Total 1 ml # Voids 3 Height (Feet): 5 Height (Inches): 10.00 Weight (Pounds): 163 General Appearance: alert, confused, agitated Nathaniel Davis MD Apr 25, 2018 11:50
--- NOTE | 2018-04-25 11:58 | NUR ---
CARDIOLOGY : PATIENT REFUSED THE EKG & 2-D ECHO CARIDOGRAM , NURSE KELLY IS AWARE.
--- NOTE | 2018-04-25 12:03 | NUR ---
CHARGE NURSE NOTE: 2 DEcho and ECG were not done, pt became agitated, cursing, refused tests. will be notified.
--- NOTE | 2018-04-25 12:56 | GI Progress Note ---
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 Ferguson Assessment/Plan psych f/u defer PEG, the patient has shown improvement in caloric intake and shows no signs of dysphagia or risk for aspiration. Follow-up calorie count Patient on regular diet push p.o. One-to-one feeder IV/p.o. hydration Antibiotics PPI Follow-up labs DC planning The patient was seen and examined at bedside and all new and available data was reviewed in the patients chart. I agree with the above findings, impression and plan. (Patient seen earlier today. Signature stamp does not reflect patient encounter time.). - Juliocesar Ferguson MD Subjective Subjective Limited Objective Last 24 Hour Vital Signs Date Time Temp Pulse Resp B/P (MAP) Pulse Ox O2 Delivery O2 Flow Rate FiO2 04/25/18 09:02 Room Air 04/25/18 08:53 120 140/85 04/25/18 08:36 98.2 04/25/18 07:57 120 20 140/85 (103) 97 04/24/18 21:00 Room Air 04/24/18 20:00 98.2 104 17 138/81 (100) 94 04/24/18 16:00 98.6 107 20 152/83 (106) 94 Intake and Output 04/24/18 04/25/18 19:00 07:00 Intake Total 1630 ml Output Total 1401 ml 300 ml Balance 229 ml -300 ml Intake Oral 1630 ml Output Urine Total 1400 ml 300 ml Stool Total 1 ml # Voids 3 Height (Feet): 5 Height (Inches): 10.00 Weight (Pounds): 163 General Appearance: WD/WN, no apparent distress, alert, other Cardiovascular: normal rate Respiratory/Chest: normal breath sounds, no respiratory distress Abdominal Exam: normal bowel sounds, non tender, soft Extremities: normal range of motion, non-tender Objective Legally blind Roxanna Saavedra NP Apr 25, 2018 12:56
--- NOTE | 2018-04-25 13:15 | NUR ---
CASE MANAGEMENT: REVIEW SI: FAILURE TO THRIVE T 98.2 HR 120 RR 20 BP 140/85 SAT 97% ROOM AIR IS: PHOSPHORUS PO TID MAG OX 400MG PPO TID HEPARIN SQ Q12HR MED/SURG UNIT STATUS DCP: PATIENT IS FROM [facility]
[2018-04-25 13:18] VITALS: BP 108/65
--- NOTE | 2018-04-25 13:18 | Nephrology Progress Note ---
Assessment/Plan Problem List: (1) Dehydration (2) HTN (hypertension) (3) Failure to thrive in adult (4) Schizophrenia Assessment (1) Dysphasia (2) Encounter for PEG (percutaneous endoscopic gastrostomy) (3) Schizophrenia (4) Failure to thrive in adult (5) Generalized weakness (6) Severe malnutrition (7) Dehydration (8) Schizophrenia (9) HTN (10) Legally Blind Plan Po improving- UA pending IV out on PO K and Phos Flomax Psych mangement per consultants ? DC planning Subjective ROS Limited/Unobtainable: No Constitutional: Reports: malaise Objective Objective Last 24 Hour Vital Signs Date Time Temp Pulse Resp B/P (MAP) Pulse Ox O2 Delivery O2 Flow Rate FiO2 04/25/18 09:02 Room Air 04/25/18 08:53 120 140/85 04/25/18 08:36 98.2 04/25/18 07:57 120 20 140/85 (103) 97 04/24/18 21:00 Room Air 04/24/18 20:00 98.2 104 17 138/81 (100) 94 04/24/18 16:00 98.6 107 20 152/83 (106) 94 Intake and Output 04/24/18 04/25/18 19:00 07:00 Intake Total 1630 ml Output Total 1401 ml 300 ml Balance 229 ml -300 ml Intake Oral 1630 ml Output Urine Total 1400 ml 300 ml Stool Total 1 ml # Voids 3 Height (Feet): 5 Height (Inches): 10.00 Weight (Pounds): 163 General Appearance: no apparent distress Objective no change Al Roper MD Apr 25, 2018 13:18
--- NOTE | 2018-04-25 14:29 | NUR ---
NURSE NOTES: per dr Branch upon rounds earlier "dont call me if he refuses the tests i ordered"
[2018-04-25] MEDS ORDERED: LORazepam 1mg tab ORAL PRN (15:00)
--- NOTE | 2018-04-25 15:25 | General Progress Note ---
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 SNOMED: 02200100 (2) Dehydration ICD Codes: E86.0 - Dehydration SNOMED: 83664889 (3) Basal cell carcinoma ICD Codes: C44.91 - Basal cell carcinoma of skin, unspecified SNOMED: 731331299 (4) Generalized weakness ICD Codes: R53.1 - Weakness SNOMED: 44859679 (5) Cellulitis and abscess of face ICD Codes: L03.211 - Cellulitis of face; L02.01 - Cutaneous abscess of face SNOMED: 184807350 (6) Severe malnutrition ICD Codes: E43 - Unspecified severe protein-calorie malnutrition SNOMED: 77091530 (7) Failure to thrive in adult ICD Codes: R62.7 - Adult failure to thrive SNOMED: 261079724 (8) Periorbital swelling ICD Codes: H57.8 - Periorbital swelling SNOMED: 609413534 (9) Dysphasia ICD Codes: R47.02 - Dysphasia SNOMED: 62984537 (10) HTN (hypertension) ICD Codes: I10 - Essential (primary) hypertension SNOMED: 05222026 Status: unchanged Assessment/Plan pt diet abx prn cbc bmp am Subjective Constitutional: Reports: weakness Allergies: Coded Allergies: BENZTROPINE (Unverified Allergy, Unknown, 02/22/14) HALOPERIDOL (Unverified Allergy, Unknown, 02/22/14) PENICILLINS (Unverified Allergy, Unknown, 04/14/18) tolerated Ceftriaxone 06/2017 All Systems: reviewed and negative except above Subjective calm in bed sleepy Objective Last 24 Hour Vital Signs Date Time Temp Pulse Resp B/P (MAP) Pulse Ox O2 Delivery O2 Flow Rate FiO2 04/25/18 13:18 90 20 108/65 (79) 97 04/25/18 09:02 Room Air 04/25/18 08:53 120 140/85 04/25/18 08:36 98.2 04/25/18 07:57 120 20 140/85 (103) 97 04/24/18 21:00 Room Air 04/24/18 20:00 98.2 104 17 138/81 (100) 94 04/24/18 16:00 98.6 107 20 152/83 (106) 94 Intake and Output 04/24/18 04/25/18 19:00 07:00 Intake Total 1630 ml Output Total 1401 ml 300 ml Balance 229 ml -300 ml Intake Oral 1630 ml Output Urine Total 1400 ml 300 ml Stool Total 1 ml # Voids 3 Height (Feet): 5 Height (Inches): 10.00 Weight (Pounds): 163 General Appearance: lethargic EENT: normal ENT inspection Neck: normal alignment Cardiovascular: normal peripheral pulses, normal rate, regular rhythm Respiratory/Chest: chest wall non-tender, lungs clear, normal breath sounds Abdomen: normal bowel sounds, non tender, soft Extremities: normal inspection Edema: no edema noted Arm (L), no edema noted Arm (R), no edema noted Leg (L), no edema noted Leg (R), no edema noted Pedal (L), no edema noted Pedal (R), no edema noted Generalized Neurologic: motor weakness Skin: normal pigmentation, warm/dry Julio Higgins DO Apr 25, 2018 15:25
--- NOTE | 2018-04-25 16:00 | NUR ---
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 dora wanted Dr Blackmon to call her, RN spoke w Dr Blackmon re dora's request to be called. range conservationist applied, will monitor extremities. safety precautions applied, will monitor.
--- NOTE | 2018-04-25 16:29 | General Progress Note ---
Assessment/Plan Assessment/Plan # Leukocytosis. Secondary to underlying infection, sepsis --> Monitor and trend wbc for improvement -->16.6-->23.0-->31.5-->9.2-->11.2 --> Peripheral smear has been reviewed, no blasts noted --> Medications have been reviewed --> Imaging has been reviewed --> Blood cultures and urine cultures prn --> has been started on abx, empiric treatment --> trend 32k-->9k-->1 --> per ID management # Anemia of chronic disease --> anemia panel has been reviewed --> trend hgb 12.8-->10.2 # FTT --> refusing care # Sepsis. 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 # COPD. # Dysphasia # Schizophrenia # HTN. # Legally blind Time and date note entered in EMR does not reflect time and date of encounter. GREATLY APPRECIATE CONSULTATION. Subjective Constitutional: Denies: no symptoms, chills, diaphoresis, fever, malaise, weakness, other HEENT: Denies: no symptoms, eye pain, blurred vision, tearing, double vision, ear pain, ear discharge, nose pain, nose congestion, throat pain, throat swelling, mouth pain, mouth swelling, other Cardiovascular: Denies: no symptoms, chest pain, edema, irregular heart rate, lightheadedness, palpitations, syncope, other Respiratory: Denies: no symptoms, cough, orthopnea, shortness of breath, SOB with excertion, SOB at rest, sputum, stridor, wheezing, other Gastrointestinal/Abdominal: Denies: no symptoms, abdomen distended, abdominal pain, black stools, tarry stools, blood in stool, constipated, diarrhea, difficulty swallowing, nausea, poor appetite, poor fluid intake, rectal bleeding , vomiting, other Genitourinary: Denies: no symptoms, burning, discharge, frequency, flank pain, hematuria, incontinence, pain, urgency, other Neurologic/Psychiatric: Denies: no symptoms, anxiety, depressed, emotional problems, headache, numbness, paresthesia, pre-existing deficit, seizure, tingling, tremors, weakness, other Endocrine: Denies: no symptoms, excessive sweating, flushing, intolerance to cold, intolerance to heat, increased hunger, increased thirst, increased urine, unexplained weight gain, unexplained weight loss, other Hematologic/Lymphatic: Denies: no symptoms, anemia, easy bleeding, easy bruising, other Allergies: Coded Allergies: BENZTROPINE (Unverified Allergy, Unknown, 02/22/14) HALOPERIDOL (Unverified Allergy, Unknown, 02/22/14) PENICILLINS (Unverified Allergy, Unknown, 04/14/18) tolerated Ceftriaxone 06/2017 Subjective 04/15: Pt awake and agitated. No acute events. Pt refusing meds. 04/16: wbc severely elevated, seen by Id, on broad spectrum antifungals, foul language, very aggressive 04/18: no events, mumbling, minimally conversive, no fevers, down on ivf 04/19: pt is awake and resting in bed. refusing care, aggressive, no events 04/20: Pt is awake and alert, refusing care, minimally conversive, on abx, wbc have improved. 04/21: Pt is awake and resting in bed, aggressive, mumbling, 04/22: Pt is resting in bed. PEG has been defered, the patient has shown improvement in caloric intake and shows no signs of dysphagia or risk for aspiration. 04/23: Pt is seen in the room, resting in bed, refusing care, on abx, pending labs 17/: No events, has been agitated overnight, refusing care 04/25: Pt is awake and resting in bed, refusing labs, agitated, screaming, refusing care Objective Last 24 Hour Vital Signs Date Time Temp Pulse Resp B/P (MAP) Pulse Ox O2 Delivery O2 Flow Rate FiO2 04/25/18 13:18 90 20 108/65 (79) 97 04/25/18 09:02 Room Air 04/25/18 08:53 120 140/85 04/25/18 08:36 98.2 04/25/18 07:57 120 20 140/85 (103) 97 04/24/18 21:00 Room Air 04/24/18 20:00 98.2 104 17 138/81 (100) 94 Intake and Output 04/24/18 04/25/18 19:00 07:00 Intake Total 1630 ml Output Total 1401 ml 300 ml Balance 229 ml -300 ml Intake Oral 1630 ml Output Urine Total 1400 ml 300 ml Stool Total 1 ml # Voids 3 Height (Feet): 5 Height (Inches): 10.00 Weight (Pounds): 163 Objective Vitals: Have been reviewed General Appearance: alert, agitated Head: normocephalic, atraumatic Eyes: right eye abnormal pupil - right eye has patch which covers the right temporal area of face as well from cancer ressection; left eye other - visible cataract, glassy/hazy appearance, unchanged ENT: hearing grossly normal, other Neck: full range of motion Respiratory: chest non-tender, lungs clear, normal breath sounds, speaking full sentences Cardiovascular no edema, tachycardia Gastrointestinal: normal bs, non tender, soft MSK: back normal, non-tender, bilateral hand contractures Skin: normal color, no rash, warm/dry Jr Daly MD Apr 25, 2018 16:29
[2018-04-25] MEDS: OLANZapine 10mg tab ORAL SCH (17:21)
[2018-04-25 17:23] VITALS: BP 119/81
[2018-04-25 18:41] LABS: APPEARANCE,URINE CLEAR; BILIRUBIN, URINE NEGATIVE (NEGATIVE); GLUCOSE, URINE (UA) NEGATIVE (NEGATIVE); KETONES,URINE 1+ (NEGATIVE); LEUKOCYTE ESTERASE ,URINE 1+ (NEGATIVE); NITRITE,URINE NEGATIVE (NEGATIVE); PH,URINE 7 (4.5-8.0); PROTEIN,URINE 2+ (NEGATIVE); UROBILINOGEN,URINE NORMAL MG/DL (0.0-1.0)
[2018-04-25 18:49] LABS: COLOR,URINE YELLOW
--- NOTE | 2018-04-25 18:55 | NUR ---
NURSE NOTES: URINE SPECIMEN SENT TO LAB
--- NOTE | 2018-04-25 19:00 | Consultation ---
DATE OF CONSULTATION: 04/25/2018 CARDIOLOGY CONSULTATION CONSULTING PHYSICIAN: Teto Branch M.D. REFERRING PHYSICIAN: Julio Higgins D.O. REASON FOR CONSULTATION: Tachycardia. HISTORY OF PRESENT ILLNESS: The patient is a 57-year-old gentleman with history of basal cell carcinoma of the right face, history of cellulitis, history of schizophrenia, who was originally admitted for failure to thrive from jail. The patient also has history of COPD, dysphagia, and legally blind. The patient was admitted on 04/13/2018 with failure to thrive, refused to take medicines and food. The patient also has history of prior admission superinfected necrotic face mass with MRSA and ESBL. Today, the patient was noted to be tachycardic, heart rate 120s, and a Cardiology consultation was obtained. The patient refused EKG, refused blood draws, . REVIEW OF SYSTEMS: Review of systems was negative other than what is mentioned in the history of present illness. PAST MEDICAL HISTORY: As mentioned above. PHYSICAL EXAMINATION: VITAL SIGNS: Blood pressure is 140/85, pulse of 120, and temperature 98. HEAD AND NECK: Shows no JVD. The right side of his face has a scar . LUNGS: Refused the exam. CARDIOVASCULAR: Refused the exam. EXTREMITIES: Shows 2+ edema. LABORATORY DATA: His most recent labs from 04/20/2018 that shows sodium 143, potassium 3.5, BUN of 8, and creatinine 0.9. White count is 11.2, hematocrit 10.2, hematocrit of 30.9, and platelet count is 311. ASSESSMENT AND PLAN: 1. Tachycardia with heart rate of 120s. The patient is refusing electrocardiogram. I will order CBC and CMP if he agrees to proceed. This could signify anxiety or infection. 2. Hypertension, on Norvasc 5 mg daily. 3. Schizophrenia. 4. Right facial basal cell carcinoma, status post surgery with necrotic skin. 5. Dysphagia, resolved. The patient had EGD, followup with Dr. Ferguson. Thank you very much for allowing me to participate in the care of this patient. Please do not hesitate to contact me for any questions regarding my evaluation. Teto Branch M.D. DR: Kristina JOB#: [id number] CC:
--- NOTE | 2018-04-25 19:16 | NUR ---
HAND-OFF: Report given to MARKUS OCONNELL.
--- NOTE | 2018-04-25 19:50 | NUR ---
NURSE NOTES: Patient sleeping with no apparent signs of distress. Soft wrist restraints on bilaterally, skin intact. No IV site, bed on lowest position. Will check restraints Q2H.
[2018-04-25 20:00] VITALS: BP 123/83
--- NOTE | 2018-04-25 21:00 | Consultation ---
DATE OF CONSULTATION: 04/25/2018 CONSULTING PHYSICIAN: Teofilo Blackmon M.D. HISTORY OF PRESENT ILLNESS: The patient is a 57-year-old male patient. The patient has got failure to thrive, but he is very confused, disorganized, and his mood labile. I saw him and assessed in his room today. He is very agitated, calling nurses, cursing at them, very hostile, verbally belligerent, and he has got no insight into his own illness. Currently, he has been taking his medications, but he has been very hostile when they started to do procedures on him and he needs something that he can calm down. It sounds like the Seroquel is not working adequately to stabilize his mood. MEDICAL HISTORY: He has history of cancer, basal cell carcinoma, cellulitis, failure to thrive, poor fluid intake, periorbital swelling, hypertension. ALLERGIES: He has allergies to Haldol, penicillin, and Cogentin. SUBSTANCE ABUSE HISTORY: Denies. FAMILY PSYCHIATRIC HISTORY: Denies. PAIN ASSESSMENT: 0/10. DEVELOPMENTAL PROBLEMS: Denies. SOCIAL HISTORY: Lives in [facility]. Financially supported by [employer] and Medicare. He is conserved. PSYCHIATRIC HISTORY: Paranoid schizophrenia with acute exacerbation. MENTAL STATUS EXAMINATION: This is a 57-year-old male patient. Appearance is disheveled. Attitude, irritable and agitated. Affect, guarded and restricted. Intellect poor. Mood, depressed and anxious. Motor activity, psychomotor agitation. Attention span is poor. Orientation x2. Speech is pressured. Thought process, disorganized and illogical. Insight and judgment is poor. DIAGNOSIS: Paranoid schizophrenia with acute exacerbation. Medical, hypertension. Psychosocial stressors, financial. Functional impairment is moderate. PLAN: I am going to continue him on Seroquel 150 mg q.8 hours, but I am also going to add Zyprexa 10 mg 2 times a day, and Ativan 1 mg every 6 hours p.r.n. anxiety and agitation. Seen and assessed at bedside. I am going to provide behavioral management to reduce agitation. Chart reviewed. Discussed with staff. Teofilo Blackmon M.D. : Jelly JOB#: [id number] CC:
[2018-04-25] MEDS: Tamsulosin 0.4mg cap ORAL SCH (21:38)
[2018-04-26] VITALS: BP 111/68
[2018-04-26 04:00] VITALS: BP 144/78
--- NOTE | 2018-04-26 07:23 | NUR ---
HAND-OFF: Report given to ANISH Rae.
--- NOTE | 2018-04-26 07:29 | NUR ---
NURSE NOTES: pt awake alert, no distress. no sob. meal cooker applied, pt able to move extremities, no swelling on bilateral forearms. still with agitation intermittently and sudden verbal outbursts.
[2018-04-26 07:32] VITALS: BP 120/75
[2018-04-26] MEDS: Phospha 250 Neutral tab ORAL SCH ×3 (08:17→18:06)
[2018-04-26] MEDS: Aspirin Baby 81mg ORAL SCH (08:17)
[2018-04-26] MEDS: LORazepam 1mg tab ORAL SCH ×2 (08:17→18:07)
[2018-04-26] MEDS: Magnesium Oxide 400mg tab ORAL SCH ×3 (08:18→18:06)
[2018-04-26] MEDS: Ascorbic Acid 500mg tab ORAL SCH (08:18)
[2018-04-26] MEDS: OLANZapine 10mg tab ORAL SCH ×3 (08:18→18:07)
[2018-04-26] MEDS: Heparin 5000 units/ml inj SUBQ SCH ×2 (08:18→21:57)
--- NOTE | 2018-04-26 10:15 | Infectious Diseases Prog Note ---
Assessment/Plan Assessment/Plan Sepsis- ?source- r/o UTI, PNA Afebrile Leukocytosis, increased ? 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 Wnd Cx : GPC -hx of superinfected necrotic mass and possible micro abscess s/p Tx 06/2017 -wound cx MRSA, diphterouids, ESBL Proteus 04/14/19 Wound Cx Providencia and MRSA FTT COPD dysphasia schizophrenia HTN MDD legally blind hx of VRE/MRSA colonization Plan: - Monitor off abx - 04/24/18 SP PO Bactrim DS BID - 04/20/18 SP empiric Azactam , Flagyl and IV Vanco d# 6/10 - 04/15/18 SP Ceftriaxone d# 2 -Monitor CBC/CMP, temperatures Subjective Allergies: Coded Allergies: BENZTROPINE (Unverified Allergy, Unknown, 02/22/14) HALOPERIDOL (Unverified Allergy, Unknown, 02/22/14) PENICILLINS (Unverified Allergy, Unknown, 04/14/18) tolerated Ceftriaxone 06/2017 Subjective CRISTIANA Afebrile Objective Vital Signs Last 24 Hour Vital Signs Date Time Temp Pulse Resp B/P (MAP) Pulse Ox O2 Delivery O2 Flow Rate FiO2 04/26/18 08:17 90 120/75 04/26/18 07:32 98.5 90 18 120/75 (90) 98 04/26/18 07:22 Room Air 04/26/18 04:00 98.5 103 18 144/78 (100) 98 04/26/18 00:00 98.9 94 17 111/68 (82) 98 04/25/18 21:00 Room Air 04/25/18 20:00 99.0 105 18 123/83 (96) 96 04/25/18 17:23 97.4 98 20 119/81 (94) 97 04/25/18 13:18 90 20 108/65 (79) 97 Height (Feet): 5 Height (Inches): 10.00 Weight (Pounds): 164 Objective General: NAD, Laying in bed HEENT: NCAT, right eye has patch which covers the right temporal area of face as well, left eye - visible cataract, glassy/hazy appearance Respiratory: CATB, No W/C Cardiovascular no edema, tachycardia Gastrointestinal: normal bowel sounds, non tender, soft Laboratory Tests Test 04/25/18 18:30 Urine Color Yellow Urine Appearance Clear Urine pH 7 (4.5-8.0) Urine Specific [place] 1.010 (1.005-1.035) Urine Protein 2+ (NEGATIVE) H Urine Glucose (UA) Negative (NEGATIVE) Urine Ketones 1+ (NEGATIVE) H Urine Blood Negative (NEGATIVE) Urine Nitrite Negative (NEGATIVE) Urine Bilirubin Negative (NEGATIVE) Urine Urobilinogen Normal MG/DL (0.0-1.0) Urine Leukocyte Esterase 1+ (NEGATIVE) H Urine RBC 0-2 /HPF (0 - 0) H Urine WBC 2-4 /HPF (0 - 0) Urine Squamous Epithelial Cells None /LPF (NONE/OCC) Urine Bacteria Few /HPF (NONE) Current Medications Medications (Trade) Dose Ordered Sig/Jordi Route PRN Reason Start Time Stop Time Status Last Admin Dose Admin Amlodipine Besylate (Norvasc) 5 mg DAILY ORAL 04/14/18 09:00 05/14/18 08:59 04/26/18 08:17 Ascorbic Acid (Vitamin C) 500 mg DAILY ORAL 04/14/18 09:00 05/14/18 08:59 04/26/18 08:18 Aspirin (ASA) 81 mg DAILY ORAL 04/14/18 09:00 05/14/18 08:59 04/26/18 08:17 Famotidine (Pepcid) 20 mg BID ORAL 04/18/18 18:00 05/18/18 17:59 04/26/18 08:18 Heparin Sodium (Porcine) (Heparin 5000 units/ml) 5,000 units EVERY 12 HOURS SUBQ 04/14/18 09:00 05/14/18 08:59 04/25/18 21:40 Lorazepam (Ativan) 1 mg Q6H PRN ORAL For Anxiety 04/25/18 15:00 05/02/18 14:59 Lorazepam (Ativan) 2 mg BID ORAL 04/24/18 18:00 05/01/18 17:59 04/26/18 08:17 Magnesium Oxide (Mag-Ox 400mg) 400 mg THREE TIMES A DAY ORAL 04/20/18 13:00 05/20/18 12:59 04/26/18 08:18 Multivitamins (Multivitamins) 1 tab DAILY ORAL 04/14/18 09:00 05/14/18 08:59 04/26/18 08:17 Olanzapine (ZyPREXA) 10 mg TID ORAL 04/25/18 18:00 05/25/18 17:59 04/26/18 08:18 Phosphorus (Phospha 250 Neutral) 500 mg THREE TIMES A DAY ORAL 04/20/18 13:00 05/20/18 12:59 04/26/18 08:17 Quetiapine Fumarate (SEROquel) 150 mg EVERY 8 HOURS ORAL 04/21/18 06:00 05/21/18 05:59 04/26/18 05:18 Tamsulosin HCl (Flomax) 0.4 mg BEDTIME ORAL 04/16/18 21:00 05/16/18 20:59 04/25/18 21:38 Jozef Greene MD Apr 26, 2018 10:15
--- NOTE | 2018-04-26 11:26 | GI Progress Note ---
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 Ferguson Assessment/Plan psych f/u defer PEG, the patient has shown improvement in caloric intake and shows no signs of dysphagia or risk for aspiration. Patient on regular diet push p.o. One-to-one feeder IV/p.o. hydration Antibiotics PPI Follow-up labs DC planning The patient was seen and examined at bedside and all new and available data was reviewed in the patients chart. I agree with the above findings, impression and plan. (Patient seen earlier today. Signature stamp does not reflect patient encounter time.). - Juliocesar Ferguson MD Subjective Subjective Limited Objective Last 24 Hour Vital Signs Date Time Temp Pulse Resp B/P (MAP) Pulse Ox O2 Delivery O2 Flow Rate FiO2 04/26/18 08:17 90 120/75 04/26/18 07:32 98.5 90 18 120/75 (90) 98 04/26/18 07:22 Room Air 04/26/18 04:00 98.5 103 18 144/78 (100) 98 04/26/18 00:00 98.9 94 17 111/68 (82) 98 04/25/18 21:00 Room Air 04/25/18 20:00 99.0 105 18 123/83 (96) 96 04/25/18 17:23 97.4 98 20 119/81 (94) 97 04/25/18 13:18 90 20 108/65 (79) 97 Intake and Output 04/25/18 04/26/18 18:59 06:59 Intake Total 1250 ml Balance 1250 ml Intake Oral 1250 ml # Voids 2 2 Laboratory Tests Test 04/25/18 18:30 Urine Color Yellow Urine Appearance Clear Urine pH 7 (4.5-8.0) Urine Specific [place] 1.010 (1.005-1.035) Urine Protein 2+ (NEGATIVE) H Urine Glucose (UA) Negative (NEGATIVE) Urine Ketones 1+ (NEGATIVE) H Urine Blood Negative (NEGATIVE) Urine Nitrite Negative (NEGATIVE) Urine Bilirubin Negative (NEGATIVE) Urine Urobilinogen Normal MG/DL (0.0-1.0) Urine Leukocyte Esterase 1+ (NEGATIVE) H Urine RBC 0-2 /HPF (0 - 0) H Urine WBC 2-4 /HPF (0 - 0) Urine Squamous Epithelial Cells None /LPF (NONE/OCC) Urine Bacteria Few /HPF (NONE) Height (Feet): 5 Height (Inches): 10.00 Weight (Pounds): 164 General Appearance: no apparent distress, alert Cardiovascular: normal rate Respiratory/Chest: normal breath sounds, no respiratory distress Abdominal Exam: normal bowel sounds, non tender, soft Extremities: non-tender Objective Legally blind Roxanna Saavedra NP Apr 26, 2018 11:26
[2018-04-26 12:00] VITALS: BP 122/77
--- NOTE | 2018-04-26 14:37 | General Progress Note ---
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 SNOMED: 25083718 (2) Dehydration ICD Codes: E86.0 - Dehydration SNOMED: 54615549 (3) Basal cell carcinoma ICD Codes: C44.91 - Basal cell carcinoma of skin, unspecified SNOMED: 170667249 (4) Generalized weakness ICD Codes: R53.1 - Weakness SNOMED: 70795563 (5) Cellulitis and abscess of face ICD Codes: L03.211 - Cellulitis of face; L02.01 - Cutaneous abscess of face SNOMED: 938875802 (6) Severe malnutrition ICD Codes: E43 - Unspecified severe protein-calorie malnutrition SNOMED: 13404025 (7) Failure to thrive in adult ICD Codes: R62.7 - Adult failure to thrive SNOMED: 422552028 (8) Periorbital swelling ICD Codes: H57.8 - Periorbital swelling SNOMED: 916166925 (9) Dysphasia ICD Codes: R47.02 - Dysphasia SNOMED: 40318984 (10) HTN (hypertension) ICD Codes: I10 - Essential (primary) hypertension SNOMED: 17191711 (11) UTI (urinary tract infection) ICD Codes: N39.0 - Urinary tract infection, site not specified SNOMED: 16824026 Status: unchanged Assessment/Plan pt diet abx prn cbc bmp am Subjective Constitutional: Reports: weakness Allergies: Coded Allergies: BENZTROPINE (Unverified Allergy, Unknown, 02/22/14) HALOPERIDOL (Unverified Allergy, Unknown, 02/22/14) PENICILLINS (Unverified Allergy, Unknown, 04/14/18) tolerated Ceftriaxone 06/2017 All Systems: reviewed and negative except above Subjective calm in bed sleepy Objective Last 24 Hour Vital Signs Date Time Temp Pulse Resp B/P (MAP) Pulse Ox O2 Delivery O2 Flow Rate FiO2 04/26/18 12:00 97.6 81 18 122/77 (92) 98 04/26/18 08:17 90 120/75 04/26/18 07:32 98.5 90 18 120/75 (90) 98 04/26/18 07:22 Room Air 04/26/18 04:00 98.5 103 18 144/78 (100) 98 04/26/18 00:00 98.9 94 17 111/68 (82) 98 04/25/18 21:00 Room Air 04/25/18 20:00 99.0 105 18 123/83 (96) 96 04/25/18 17:23 97.4 98 20 119/81 (94) 97 Intake and Output 04/25/18 04/26/18 18:59 06:59 Intake Total 1250 ml Balance 1250 ml Intake Oral 1250 ml # Voids 2 2 Laboratory Tests 04/25/18 18:30: Urine Color Yellow, Urine Appearance Clear, Urine pH 7, Urine Specific [place] 1.010, Urine Protein 2+H, Urine Glucose (UA) Negative, Urine Ketones 1+H, Urine Blood Negative, Urine Nitrite Negative, Urine Bilirubin Negative, Urine Urobilinogen Normal, Urine Leukocyte Esterase 1+H, Urine RBC 0-2H, Urine WBC 2-4 , Urine Squamous Epithelial Cells None, Urine Bacteria Few Height (Feet): 5 Height (Inches): 10.00 Weight (Pounds): 164 General Appearance: lethargic, confused EENT: normal ENT inspection Neck: normal alignment Cardiovascular: normal peripheral pulses, normal rate, regular rhythm Respiratory/Chest: chest wall non-tender, lungs clear, normal breath sounds Abdomen: normal bowel sounds, non tender, soft Extremities: normal inspection Edema: no edema noted Arm (L), no edema noted Arm (R), no edema noted Leg (L), no edema noted Leg (R), no edema noted Pedal (L), no edema noted Pedal (R), no edema noted Generalized Neurologic: motor weakness Skin: normal pigmentation, warm/dry Julio Higgins DO Apr 26, 2018 14:37
--- NOTE | 2018-04-26 15:12 | NUR ---
RD ASSESSMENT & RECOMMENDATIONS SEE CARE ACTIVITY FOR COMPLETE ASSESSMENT DAILY ESTIMATED NEEDS: Needs based on Wound/ 71kg 25-30 kcals/kg 6521-0330 total kcals 1.25-1.7 g protein/kg 88-120 g total protein 25-30 mL/kg 5370-2098 total fluid mLs NUTRITION DIAGNOSIS: * Increased kcal/pro intake needs R/T wound healing as evidenced by pt w/ open wound @ rt eye due to h/o resection of carcinoma. * Inadequate oral intake R/T psych issues? etiology unknown as evidenced by pt admitted w/ c/o refusing to eat w/ FTT dx, now w/ improved oral intake. CURRENT DIET:REGULAR PO DIET RECOMMENDATIONS: Liberalized REGULAR diet/ texture per PUBLIC AFFAIRS DIRECTOR + ENSURE TID ADDITIONAL RECOMMENDATIONS: * Calibrated bedscale wt * ENSURE ENLIVE TID w/ meals * Wound healing: continue MVI x 1, Vit C 500mg QD : Add Crispin 1pkt BID * Updated CBC, CMP, lytes as able . .
[2018-04-26 15:48] VITALS: BP 107/63
--- NOTE | 2018-04-26 15:58 | NUR ---
HAND-OFF: Report given to MELISSA OCONNELL.
--- NOTE | 2018-04-26 15:58 | Nephrology Progress Note ---
Assessment/Plan Problem List: (1) Dehydration (2) HTN (hypertension) (3) Failure to thrive in adult (4) Schizophrenia Assessment (1) Dysphasia (2) Encounter for PEG (percutaneous endoscopic gastrostomy) (3) Schizophrenia (4) Failure to thrive in adult (5) Generalized weakness (6) Severe malnutrition (7) Dehydration (8) Schizophrenia (9) HTN (10) Legally Blind Plan PO improving- UA pending IV out on PO K and Phos Flomax Psych mangement per consultants ? DC planning Subjective ROS Limited/Unobtainable: No Objective Objective Last 24 Hour Vital Signs Date Time Temp Pulse Resp B/P (MAP) Pulse Ox O2 Delivery O2 Flow Rate FiO2 04/26/18 15:48 98.0 61 18 107/63 (78) 98 04/26/18 12:00 97.6 81 18 122/77 (92) 98 04/26/18 08:17 90 120/75 04/26/18 07:32 98.5 90 18 120/75 (90) 98 04/26/18 07:22 Room Air 04/26/18 04:00 98.5 103 18 144/78 (100) 98 04/26/18 00:00 98.9 94 17 111/68 (82) 98 04/25/18 21:00 Room Air 04/25/18 20:00 99.0 105 18 123/83 (96) 96 04/25/18 17:23 97.4 98 20 119/81 (94) 97 Intake and Output 04/25/18 04/26/18 19:00 07:00 Intake Total 1250 ml Balance 1250 ml Intake Oral 1250 ml # Voids 2 2 Laboratory Tests 04/25/18 18:30: Urine Color Yellow, Urine Appearance Clear, Urine pH 7, Urine Specific [place] 1.010, Urine Protein 2+H, Urine Glucose (UA) Negative, Urine Ketones 1+H, Urine Blood Negative, Urine Nitrite Negative, Urine Bilirubin Negative, Urine Urobilinogen Normal, Urine Leukocyte Esterase 1+H, Urine RBC 0-2H, Urine WBC 2-4 , Urine Squamous Epithelial Cells None, Urine Bacteria Few Height (Feet): 5 Height (Inches): 10.00 Weight (Pounds): 164 General Appearance: no apparent distress Objective no change Al Roper MD Apr 26, 2018 15:58
--- NOTE | 2018-04-26 16:03 | NUR ---
NURSE NOTES: Received report from ANISH Rae. Pt is in the bed. No s.s of respiratory distress or discomfort noted. Bed is in the lowest position. Call light is within the reach. Will continue to monitor.
--- NOTE | 2018-04-26 17:25 | Cardiac Electrophysiology PN ---
Assessment/Plan Assessment/Plan 1. Tachycardia with heart rate of 120s. The patient refused ECG. This could signify anxiety or infection. 2. Hypertension, on Norvasc 5 mg daily. 3. Schizophrenia. 4. Right facial basal cell carcinoma, status post surgery with necrotic skin. 5. Dysphagia, resolved. The patient had EGD, followup with Dr. Ferguson. Subjective Subjective No new events. Comfortable on NMB Objective Last 24 Hour Vital Signs Date Time Temp Pulse Resp B/P (MAP) Pulse Ox O2 Delivery O2 Flow Rate FiO2 04/26/18 15:48 98.0 61 18 107/63 (78) 98 04/26/18 12:00 97.6 81 18 122/77 (92) 98 04/26/18 08:17 90 120/75 04/26/18 07:32 98.5 90 18 120/75 (90) 98 04/26/18 07:22 Room Air 04/26/18 04:00 98.5 103 18 144/78 (100) 98 04/26/18 00:00 98.9 94 17 111/68 (82) 98 04/25/18 21:00 Room Air 04/25/18 20:00 99.0 105 18 123/83 (96) 96 04/25/18 17:23 97.4 98 20 119/81 (94) 97 Intake and Output 04/25/18 04/26/18 19:00 07:00 Intake Total 1250 ml Balance 1250 ml Intake Oral 1250 ml # Voids 2 2 Laboratory Tests Test 04/25/18 18:30 Urine Color Yellow Urine Appearance Clear Urine pH 7 (4.5-8.0) Urine Specific [place] 1.010 (1.005-1.035) Urine Protein 2+ (NEGATIVE) H Urine Glucose (UA) Negative (NEGATIVE) Urine Ketones 1+ (NEGATIVE) H Urine Blood Negative (NEGATIVE) Urine Nitrite Negative (NEGATIVE) Urine Bilirubin Negative (NEGATIVE) Urine Urobilinogen Normal MG/DL (0.0-1.0) Urine Leukocyte Esterase 1+ (NEGATIVE) H Urine RBC 0-2 /HPF (0 - 0) H Urine WBC 2-4 /HPF (0 - 0) Urine Squamous Epithelial Cells None /LPF (NONE/OCC) Urine Bacteria Few /HPF (NONE) Objective HEAD AND NECK: Shows no JVD. The right side of his face has a scar. LUNGS: Clear CARDIOVASCULAR: RRR. No GRM ABDOMEN: Soft EXTREMITIES: 2+ edema. Teto Branch MD Apr 26, 2018 17:25
--- NOTE | 2018-04-26 19:06 | NUR ---
NURSE NOTES: Received patient on bed sleeping, no s/s of any distress. No IV access. soft wrist restraints is not in use, Bed in low position and locked, call light within reach, will continue to monitor.
--- NOTE | 2018-04-26 19:06 | NUR ---
HAND-OFF: Report given to ANISH Mcintyre.
--- NOTE | 2018-04-26 20:27 | General Progress Note ---
Assessment/Plan Assessment/Plan # Leukocytosis. Secondary to underlying infection, sepsis --> Monitor and trend wbc for improvement -->16.6-->23.0-->31.5-->9.2-->11.2 --> Peripheral smear has been reviewed, no blasts noted --> Medications have been reviewed --> Imaging has been reviewed --> has been started on abx, empiric treatment --> trend 32k-->9k-->10k --> per ID management # Anemia of chronic disease --> anemia panel has been reviewed --> trend hgb 12.8-->10.2 # FTT --> refusing care # Sepsis. 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 # COPD. # Dysphasia # Schizophrenia # HTN. # Legally blind Time and date note entered in EMR does not reflect time and date of encounter. GREATLY APPRECIATE CONSULTATION. Subjective Constitutional: Denies: no symptoms, chills, diaphoresis, fever, malaise, weakness, other Cardiovascular: Denies: no symptoms, chest pain, edema, irregular heart rate, lightheadedness, palpitations, syncope, other Respiratory: Denies: no symptoms, cough, orthopnea, shortness of breath, SOB with excertion, SOB at rest, sputum, stridor, wheezing, other Gastrointestinal/Abdominal: Denies: no symptoms, abdomen distended, abdominal pain, black stools, tarry stools, blood in stool, constipated, diarrhea, difficulty swallowing, nausea, poor appetite, poor fluid intake, rectal bleeding , vomiting, other Neurologic/Psychiatric: Denies: no symptoms, anxiety, depressed, emotional problems, headache, numbness, paresthesia, pre-existing deficit, seizure, tingling, tremors, weakness, other Endocrine: Denies: no symptoms, excessive sweating, flushing, intolerance to cold, intolerance to heat, increased hunger, increased thirst, increased urine, unexplained weight gain, unexplained weight loss, other Allergies: Coded Allergies: BENZTROPINE (Unverified Allergy, Unknown, 02/22/14) HALOPERIDOL (Unverified Allergy, Unknown, 02/22/14) PENICILLINS (Unverified Allergy, Unknown, 04/14/18) tolerated Ceftriaxone 06/2017 Subjective 04/15: Pt awake and agitated. No acute events. Pt refusing meds. 04/16: wbc severely elevated, seen by Id, on broad spectrum antifungals, foul language, very aggressive 04/18: no events, mumbling, minimally conversive, no fevers, down on ivf 04/19: pt is awake and resting in bed. refusing care, aggressive, no events 04/20: Pt is awake and alert, refusing care, minimally conversive, on abx, wbc have improved. 04/21: Pt is awake and resting in bed, aggressive, mumbling, 04/22: Pt is resting in bed. PEG has been defered, the patient has shown improvement in caloric intake and shows no signs of dysphagia or risk for aspiration. 04/23: Pt is seen in the room, resting in bed, refusing care, on abx, pending labs 17/: No events, has been agitated overnight, refusing care 04/25: Pt is awake and resting in bed, refusing labs, agitated, screaming, refusing care 04/26: no major events, no fevers or chills, no chest pain or sob Objective Last 24 Hour Vital Signs Date Time Temp Pulse Resp B/P (MAP) Pulse Ox O2 Delivery O2 Flow Rate FiO2 04/26/18 15:48 98.0 61 18 107/63 (78) 98 04/26/18 12:00 97.6 81 18 122/77 (92) 98 04/26/18 08:17 90 120/75 04/26/18 07:32 98.5 90 18 120/75 (90) 98 04/26/18 07:22 Room Air 04/26/18 04:00 98.5 103 18 144/78 (100) 98 04/26/18 00:00 98.9 94 17 111/68 (82) 98 04/25/18 21:00 Room Air Intake and Output 04/25/18 04/26/18 19:00 07:00 Intake Total 1250 ml Balance 1250 ml Intake Oral 1250 ml # Voids 2 2 Height (Feet): 5 Height (Inches): 10.00 Weight (Pounds): 164 Objective Vitals: Have been reviewed General Appearance: alert, agitated Head: normocephalic, atraumatic Eyes: right eye abnormal pupil - right eye has patch which covers the right temporal area of face as well from cancer ressection; left eye other - visible cataract, glassy/hazy appearance, unchanged ENT: hearing grossly normal, other Neck: full range of motion Respiratory: chest non-tender, lungs clear Cardiovascular no edema, tachycardia Gastrointestinal: normal bs, non tender, soft MSK: back normal, non-tender, bilateral hand contractures Skin: normal color, no rash, warm/dry Jr Daly MD Apr 26, 2018 20:27
[2018-04-26] MEDS: Tamsulosin 0.4mg cap ORAL SCH (21:54)
[2018-04-27] VITALS: BP 138/76
--- NOTE | 2018-04-27 07:28 | NUR ---
HAND-OFF: Report given to Marty OCONNELL.
--- NOTE | 2018-04-27 07:52 | NUR ---
NURSE NOTES: Received report from ANISH Mcintyre. Pt is in the bed, on the RA, no s/s of respiratory distress or discomfort noted. Bed is in the lowest position. Call light is within the reach. Will continue to monitor.
[2018-04-27 08:00] VITALS: BP 124/68
[2018-04-27 08:54] LABS: HEMATOCRIT 34.8 % (42.0-52.0); HEMOGLOBIN 11.6 G/DL (14.2-18.0); MEAN CORPUSCULAR VOLUME 90 FL (80-99); PLATELET COUNT 566 K/UL (150-450); RED BLOOD COUNT 3.85 M/UL (4.70-6.10); RED CELL DISTRIBUTION WIDTH 15.2 % (11.6-14.8)
[2018-04-27] MEDS: Heparin 5000 units/ml inj SUBQ SCH ×3 (09:00→21:19)
[2018-04-27] MEDS: OLANZapine 10mg tab ORAL SCH ×4 (09:00→17:52)
[2018-04-27] MEDS: Ascorbic Acid 500mg tab ORAL SCH ×2 (09:00→09:45)
[2018-04-27] MEDS: Aspirin Baby 81mg ORAL SCH ×2 (09:00→09:47)
[2018-04-27] MEDS: LORazepam 1mg tab ORAL SCH ×3 (09:00→17:52)
[2018-04-27] MEDS: Magnesium Oxide 400mg tab ORAL SCH ×4 (09:00→17:52)
[2018-04-27] MEDS: Phospha 250 Neutral tab ORAL SCH ×4 (09:00→17:52)
[2018-04-27 09:02] LABS: ANION GAP 12 mmol/L (5-15); BLOOD UREA NITROGEN 16 mg/dL (7-18); CALCIUM 8.8 MG/DL (8.5-10.1); CARBON DIOXIDE 25 MMOL/L (21-32); CHLORIDE 104 MMOL/L (98-107); POTASSIUM 3.7 MMOL/L (3.5-5.1); SODIUM 141 MMOL/L (136-145); WHITE BLOOD COUNT 22.9 K/UL (4.8-10.8)
--- NOTE | 2018-04-27 09:08 | NUR ---
PT NOTE: Received MD order for PT evaluation, reviewed medical record. Attempted to see patient for PT evaluation. Patient declining to participate with exercise or mobility activities, confused, disoriented, becomes agitated when re-oriented. Rosa OCONNELL notified, will re-attempt tomorrow.
--- NOTE | 2018-04-27 09:37 | NUR ---
NURSE NOTES: Received call from the lab with the result of WBC 22.9. Dr Greene notified. No new orders received
--- NOTE | 2018-04-27 09:44 | Infectious Diseases Prog Note ---
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 Wnd Cx : GPC -hx of superinfected necrotic mass and possible micro abscess s/p Tx 06/2017 -wound cx MRSA, diphterouids, ESBL Proteus 04/14/19 Wound Cx Providencia and MRSA FTT COPD dysphasia schizophrenia HTN MDD legally blind hx of VRE/MRSA colonization Plan: - Monitor off abx - Repeat blood and Urine Cx - 04/24/18 SP PO Bactrim DS BID - 04/20/18 SP empiric Azactam , Flagyl and IV Vanco d# 6/10 - 04/15/18 SP Ceftriaxone d# 2 -Monitor CBC/CMP, temperatures Subjective Allergies: Coded Allergies: BENZTROPINE (Unverified Allergy, Unknown, 02/22/14) HALOPERIDOL (Unverified Allergy, Unknown, 02/22/14) PENICILLINS (Unverified Allergy, Unknown, 04/14/18) tolerated Ceftriaxone 06/2017 Subjective CRISTIANA Afebrile New Leukocytosis 22.9 No Diarrhea Objective Vital Signs Last 24 Hour Vital Signs Date Time Temp Pulse Resp B/P (MAP) Pulse Ox O2 Delivery O2 Flow Rate FiO2 04/27/18 00:00 98.6 92 17 138/76 (96) 97 04/26/18 21:00 Room Air 04/26/18 15:48 98.0 61 18 107/63 (78) 98 04/26/18 12:00 97.6 81 18 122/77 (92) 98 Height (Feet): 5 Height (Inches): 10.00 Weight (Pounds): 164 Objective General: NAD HEENT: NCAT, right eye has patch which covers the right temporal area of face as well, left eye - visible cataract, glassy/hazy appearance Respiratory: CATB, No W/C Cardiovascular no edema, tachycardia Gastrointestinal: normal bowel sounds, non tender, soft Laboratory Tests Test 04/27/18 08:35 White Blood Count 22.9 K/UL (4.8-10.8) *H Red Blood Count 3.85 M/UL (4.70-6.10) L Hemoglobin 11.6 G/DL (14.2-18.0) L Hematocrit 34.8 % (42.0-52.0) L Mean Corpuscular Volume 90 FL (80-99) Mean Corpuscular Hemoglobin 30.1 PG (27.0-31.0) Mean Corpuscular Hemoglobin Concent 33.3 G/DL (32.0-36.0) Red Cell Distribution Width 15.2 % (11.6-14.8) H Platelet Count 566 K/UL (150-450) H Mean Platelet Volume 5.5 FL (6.5-10.1) L Neutrophils (%) (Auto) % (45.0-75.0) Lymphocytes (%) (Auto) % (20.0-45.0) Monocytes (%) (Auto) % (1.0-10.0) Eosinophils (%) (Auto) % (0.0-3.0) Basophils (%) (Auto) % (0.0-2.0) Neutrophils % (Manual) Pending Lymphocytes % (Manual) Pending Platelet Estimate Pending Platelet Morphology Pending Sodium Level 141 MMOL/L (136-145) Potassium Level 3.7 MMOL/L (3.5-5.1) Chloride Level 104 MMOL/L (98-107) Carbon Dioxide Level 25 MMOL/L (21-32) Anion Gap 12 mmol/L (5-15) Blood Urea Nitrogen 16 mg/dL (7-18) Creatinine 1.0 MG/DL (0.55-1.30) Estimat Glomerular Filtration Rate > 60 mL/min (>60) Glucose Level 84 MG/DL (74-106) Calcium Level 8.8 MG/DL (8.5-10.1) Current Medications Medications (Trade) Dose Ordered Sig/Jordi Route PRN Reason Start Time Stop Time Status Last Admin Dose Admin Amlodipine Besylate (Norvasc) 5 mg DAILY ORAL 04/14/18 09:00 05/14/18 08:59 04/26/18 08:17 Ascorbic Acid (Vitamin C) 500 mg DAILY ORAL 04/14/18 09:00 05/14/18 08:59 04/26/18 08:18 Aspirin (ASA) 81 mg DAILY ORAL 04/14/18 09:00 05/14/18 08:59 04/26/18 08:17 Famotidine (Pepcid) 20 mg BID ORAL 04/18/18 18:00 05/18/18 17:59 04/26/18 18:06 Heparin Sodium (Porcine) (Heparin 5000 units/ml) 5,000 units EVERY 12 HOURS SUBQ 04/14/18 09:00 05/14/18 08:59 04/26/18 21:57 Lorazepam (Ativan) 1 mg Q6H PRN ORAL For Anxiety 04/25/18 15:00 05/02/18 14:59 Lorazepam (Ativan) 2 mg BID ORAL 04/24/18 18:00 05/01/18 17:59 04/26/18 18:07 Magnesium Oxide (Mag-Ox 400mg) 400 mg THREE TIMES A DAY ORAL 04/20/18 13:00 05/20/18 12:59 04/26/18 18:06 Multivitamins (Multivitamins) 1 tab DAILY ORAL 04/14/18 09:00 05/14/18 08:59 04/26/18 08:17 Olanzapine (ZyPREXA) 10 mg TID ORAL 04/25/18 18:00 05/25/18 17:59 04/26/18 18:07 Phosphorus (Phospha 250 Neutral) 500 mg THREE TIMES A DAY ORAL 04/20/18 13:00 05/20/18 12:59 04/26/18 18:06 Quetiapine Fumarate (SEROquel) 150 mg EVERY 8 HOURS ORAL 04/21/18 06:00 05/21/18 05:59 04/27/18 06:04 Tamsulosin HCl (Flomax) 0.4 mg BEDTIME ORAL 04/16/18 21:00 05/16/18 20:59 04/26/18 21:54 Jozef Greene MD Apr 27, 2018 09:44
--- NOTE | 2018-04-27 10:37 | Infectious Diseases Prog Note ---
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 Wnd Cx : GPC -hx of superinfected necrotic mass and possible micro abscess s/p Tx 06/2017 -wound cx MRSA, diphterouids, ESBL Proteus 04/14/19 Wound Cx Providencia and MRSA FTT COPD dysphasia schizophrenia HTN MDD legally blind hx of VRE/MRSA colonization Plan: - Monitor off abx for today If leukocytosis increasing will try bactrim again but patient has been refusing meds - Repeat blood and Urine Cx - 04/24/18 SP PO Bactrim DS BID - 04/20/18 SP empiric Azactam , Flagyl and IV Vanco d# 6/ - 04/15/18 SP Ceftriaxone d# 2 -Monitor CBC/CMP, temperatures Subjective Allergies: Coded Allergies: BENZTROPINE (Unverified Allergy, Unknown, 02/22/14) HALOPERIDOL (Unverified Allergy, Unknown, 02/22/14) PENICILLINS (Unverified Allergy, Unknown, 04/14/18) tolerated Ceftriaxone 06/2017 Subjective CRISTIANA Afebrile New Leukocytosis 22.9 No Diarrhea Objective Vital Signs Last 24 Hour Vital Signs Date Time Temp Pulse Resp B/P (MAP) Pulse Ox O2 Delivery O2 Flow Rate FiO2 04/27/18 09:00 Room Air 04/27/18 08:00 97.9 88 18 124/68 (86) 97 04/27/18 00:00 98.6 92 17 138/76 (96) 97 04/26/18 21:00 Room Air 04/26/18 15:48 98.0 61 18 107/63 (78) 98 04/26/18 12:00 97.6 81 18 122/77 (92) 98 Height (Feet): 5 Height (Inches): 10.00 Weight (Pounds): 164 Objective General: NAD HEENT: NCAT, right eye with large ulcer no surrounding erythema or purulence but scar and some necrotic tissue present, left eye - visible cataract, glassy/ hazy appearance Respiratory: CATB, No W/C Cardiovascular no edema, tachycardia Gastrointestinal: normal bowel sounds, non tender, soft Laboratory Tests Test 04/27/18 08:35 White Blood Count 22.9 K/UL (4.8-10.8) *H Red Blood Count 3.85 M/UL (4.70-6.10) L Hemoglobin 11.6 G/DL (14.2-18.0) L Hematocrit 34.8 % (42.0-52.0) L Mean Corpuscular Volume 90 FL (80-99) Mean Corpuscular Hemoglobin 30.1 PG (27.0-31.0) Mean Corpuscular Hemoglobin Concent 33.3 G/DL (32.0-36.0) Red Cell Distribution Width 15.2 % (11.6-14.8) H Platelet Count 566 K/UL (150-450) H Mean Platelet Volume 5.5 FL (6.5-10.1) L Neutrophils (%) (Auto) % (45.0-75.0) Lymphocytes (%) (Auto) % (20.0-45.0) Monocytes (%) (Auto) % (1.0-10.0) Eosinophils (%) (Auto) % (0.0-3.0) Basophils (%) (Auto) % (0.0-2.0) Neutrophils % (Manual) Pending Lymphocytes % (Manual) Pending Platelet Estimate Pending Platelet Morphology Pending Sodium Level 141 MMOL/L (136-145) Potassium Level 3.7 MMOL/L (3.5-5.1) Chloride Level 104 MMOL/L (98-107) Carbon Dioxide Level 25 MMOL/L (21-32) Anion Gap 12 mmol/L (5-15) Blood Urea Nitrogen 16 mg/dL (7-18) Creatinine 1.0 MG/DL (0.55-1.30) Estimat Glomerular Filtration Rate > 60 mL/min (>60) Glucose Level 84 MG/DL (74-106) Calcium Level 8.8 MG/DL (8.5-10.1) Current Medications Medications (Trade) Dose Ordered Sig/Jordi Route PRN Reason Start Time Stop Time Status Last Admin Dose Admin Amlodipine Besylate (Norvasc) 5 mg DAILY ORAL 04/14/18 09:00 05/14/18 08:59 04/26/18 08:17 Ascorbic Acid (Vitamin C) 500 mg DAILY ORAL 04/14/18 09:00 05/14/18 08:59 04/26/18 08:18 Aspirin (ASA) 81 mg DAILY ORAL 04/14/18 09:00 05/14/18 08:59 04/26/18 08:17 Famotidine (Pepcid) 20 mg BID ORAL 04/18/18 18:00 05/18/18 17:59 04/26/18 18:06 Heparin Sodium (Porcine) (Heparin 5000 units/ml) 5,000 units EVERY 12 HOURS SUBQ 04/14/18 09:00 05/14/18 08:59 04/26/18 21:57 Lorazepam (Ativan) 1 mg Q6H PRN ORAL For Anxiety 04/25/18 15:00 05/02/18 14:59 Lorazepam (Ativan) 2 mg BID ORAL 04/24/18 18:00 05/01/18 17:59 04/26/18 18:07 Magnesium Oxide (Mag-Ox 400mg) 400 mg THREE TIMES A DAY ORAL 04/20/18 13:00 05/20/18 12:59 04/26/18 18:06 Multivitamins (Multivitamins) 1 tab DAILY ORAL 04/14/18 09:00 05/14/18 08:59 04/26/18 08:17 Olanzapine (ZyPREXA) 10 mg TID ORAL 04/25/18 18:00 05/25/18 17:59 04/26/18 18:07 Phosphorus (Phospha 250 Neutral) 500 mg THREE TIMES A DAY ORAL 04/20/18 13:00 05/20/18 12:59 04/26/18 18:06 Quetiapine Fumarate (SEROquel) 150 mg EVERY 8 HOURS ORAL 04/21/18 06:00 05/21/18 05:59 04/27/18 06:04 Tamsulosin HCl (Flomax) 0.4 mg BEDTIME ORAL 04/16/18 21:00 05/16/18 20:59 04/26/18 21:54 Jozef Greene MD Apr 27, 2018 10:36
--- NOTE | 2018-04-27 11:13 | Nephrology Progress Note ---
Assessment/Plan Problem List: (1) Dehydration (2) HTN (hypertension) (3) Failure to thrive in adult (4) Schizophrenia Assessment WBC jeb (1) Dysphasia (2) Encounter for PEG (percutaneous endoscopic gastrostomy) (3) Schizophrenia (4) Failure to thrive in adult (5) Generalized weakness (6) Severe malnutrition (7) Dehydration (8) Schizophrenia (9) HTN (10) Legally Blind Plan Ua CXR IV out on PO K and Phos Flomax Psych mangement per consultants Subjective ROS Limited/Unobtainable: No Objective Objective Last 24 Hour Vital Signs Date Time Temp Pulse Resp B/P (MAP) Pulse Ox O2 Delivery O2 Flow Rate FiO2 04/27/18 09:00 Room Air 04/27/18 08:00 97.9 88 18 124/68 (86) 97 04/27/18 00:00 98.6 92 17 138/76 (96) 97 04/26/18 21:00 Room Air 04/26/18 15:48 98.0 61 18 107/63 (78) 98 04/26/18 12:00 97.6 81 18 122/77 (92) 98 Intake and Output 04/26/18 04/27/18 19:00 07:00 Intake Total 960 ml Balance 960 ml Intake Oral 960 ml # Voids 3 3 # Bowel Movements 2 Laboratory Tests 04/27/18 08:35: White Blood Count 22.9*H, Red Blood Count 3.85L, Hemoglobin 11.6L, Hematocrit 34.8L, Mean Corpuscular Volume 90, Mean Corpuscular Hemoglobin 30.1, Mean Corpuscular Hemoglobin Concent 33.3, Red Cell Distribution Width 15.2H, Platelet Count 566H, Mean Platelet Volume 5.5L, Neutrophils (%) (Auto) , Lymphocytes (%) (Auto) , Monocytes (%) (Auto) , Eosinophils (%) (Auto) , Basophils (%) (Auto) , Neutrophils % (Manual) [Pending], Lymphocytes % (Manual) [Pending], Platelet Estimate [Pending], Platelet Morphology [Pending], Sodium Level 141, Potassium Level 3.7, Chloride Level 104, Carbon Dioxide Level 25, Anion Gap 12, Blood Urea Nitrogen 16, Creatinine 1.0, Estimat Glomerular Filtration Rate > 60, Glucose Level 84, Calcium Level 8.8 Height (Feet): 5 Height (Inches): 10.00 Weight (Pounds): 164 General Appearance: no apparent distress Objective no change Al Roper MD Apr 27, 2018 11:13
--- NOTE | 2018-04-27 11:26 | GI Progress Note ---
Assessment/Plan Problems: (1) Dysphasia ICD Codes: R47.02 - Dysphasia SNOMED: 07623778 (2) Schizophrenia ICD Codes: F20.9 - Schizophrenia, unspecified SNOMED: 25493459 (3) Poor fluid intake ICD Codes: R63.8 - Other symptoms and signs concerning food and fluid intake SNOMED: 992969310 (4) Failure to thrive in adult ICD Codes: R62.7 - Adult failure to thrive SNOMED: 131294002 (5) Severe malnutrition ICD Codes: E43 - Unspecified severe protein-calorie malnutrition SNOMED: 71917204 (6) Dehydration ICD Codes: E86.0 - Dehydration SNOMED: 61583395 (7) Schizophreniform psychosis ICD Codes: F20.9 - Schizophreniform psychosis SNOMED: 30614808 (8) Cellulitis and abscess of face ICD Codes: L03.211 - Cellulitis of face; L02.01 - Cutaneous abscess of face SNOMED: 797772592 Status: stable Status Narrative Discussed with Dr. Ferguson. Assessment/Plan psych f/u defer PEG, the patient has shown improvement in caloric intake and shows no signs of dysphagia or risk for aspiration. Patient on regular diet push p.o. One-to-one feeder IV/p.o. hydration Antibiotics PPI Follow-up labs The patient was seen and examined at bedside and all new and available data was reviewed in the patients chart. I agree with the above findings, impression and plan. (Patient seen earlier today. Signature stamp does not reflect patient encounter time.). - Juliocesar Ferguson MD Subjective Subjective Limited Objective Last 24 Hour Vital Signs Date Time Temp Pulse Resp B/P (MAP) Pulse Ox O2 Delivery O2 Flow Rate FiO2 04/27/18 09:00 Room Air 04/27/18 08:00 97.9 88 18 124/68 (86) 97 04/27/18 00:00 98.6 92 17 138/76 (96) 97 04/26/18 21:00 Room Air 04/26/18 15:48 98.0 61 18 107/63 (78) 98 04/26/18 12:00 97.6 81 18 122/77 (92) 98 Intake and Output 04/26/18 04/27/18 19:00 07:00 Intake Total 960 ml Balance 960 ml Intake Oral 960 ml # Voids 3 3 # Bowel Movements 2 Laboratory Tests Test 04/27/18 08:35 White Blood Count 22.9 K/UL (4.8-10.8) *H Red Blood Count 3.85 M/UL (4.70-6.10) L Hemoglobin 11.6 G/DL (14.2-18.0) L Hematocrit 34.8 % (42.0-52.0) L Mean Corpuscular Volume 90 FL (80-99) Mean Corpuscular Hemoglobin 30.1 PG (27.0-31.0) Mean Corpuscular Hemoglobin Concent 33.3 G/DL (32.0-36.0) Red Cell Distribution Width 15.2 % (11.6-14.8) H Platelet Count 566 K/UL (150-450) H Mean Platelet Volume 5.5 FL (6.5-10.1) L Neutrophils (%) (Auto) % (45.0-75.0) Lymphocytes (%) (Auto) % (20.0-45.0) Monocytes (%) (Auto) % (1.0-10.0) Eosinophils (%) (Auto) % (0.0-3.0) Basophils (%) (Auto) % (0.0-2.0) Neutrophils % (Manual) Pending Lymphocytes % (Manual) Pending Platelet Estimate Pending Platelet Morphology Pending Sodium Level 141 MMOL/L (136-145) Potassium Level 3.7 MMOL/L (3.5-5.1) Chloride Level 104 MMOL/L (98-107) Carbon Dioxide Level 25 MMOL/L (21-32) Anion Gap 12 mmol/L (5-15) Blood Urea Nitrogen 16 mg/dL (7-18) Creatinine 1.0 MG/DL (0.55-1.30) Estimat Glomerular Filtration Rate > 60 mL/min (>60) Glucose Level 84 MG/DL (74-106) Calcium Level 8.8 MG/DL (8.5-10.1) Height (Feet): 5 Height (Inches): 10.00 Weight (Pounds): 164 General Appearance: WD/WN, no apparent distress, alert Cardiovascular: normal rate Respiratory/Chest: normal breath sounds, no respiratory distress Abdominal Exam: normal bowel sounds, non tender, soft Extremities: non-tender Objective Legally blind Saavedra,Brunilda-Keven GARAGE HAND Apr 27, 2018 11:26
[2018-04-27 12:56] LABS: ALANINE AMINOTRANSFERASE 27 U/L (12-78); ALBUMIN 2.7 G/DL (3.4-5.0); ALKALINE PHOSPHATASE 90 U/L (46-116); ASPARTATE AMINO TRANSFERASE 21 U/L (15-37); BILIRUBIN,DIRECT 0.2 MG/DL (0.0-0.3); BILIRUBIN,TOTAL 0.5 MG/DL (0.2-1.0); PHOSPHORUS 3.6 MG/DL (2.5-4.9)
--- NOTE | 2018-04-27 13:01 | General Progress Note ---
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 SNOMED: 87159585 (2) Dehydration ICD Codes: E86.0 - Dehydration SNOMED: 40449174 (3) Basal cell carcinoma ICD Codes: C44.91 - Basal cell carcinoma of skin, unspecified SNOMED: 629805410 (4) Generalized weakness ICD Codes: R53.1 - Weakness SNOMED: 90856439 (5) Cellulitis and abscess of face ICD Codes: L03.211 - Cellulitis of face; L02.01 - Cutaneous abscess of face SNOMED: 921291372 (6) Severe malnutrition ICD Codes: E43 - Unspecified severe protein-calorie malnutrition SNOMED: 70794938 (7) Failure to thrive in adult ICD Codes: R62.7 - Adult failure to thrive SNOMED: 641258187 (8) Periorbital swelling ICD Codes: H57.8 - Periorbital swelling SNOMED: 467920257 (9) Dysphasia ICD Codes: R47.02 - Dysphasia SNOMED: 19866072 (10) HTN (hypertension) ICD Codes: I10 - Essential (primary) hypertension SNOMED: 28992599 (11) UTI (urinary tract infection) ICD Codes: N39.0 - Urinary tract infection, site not specified SNOMED: 39303995 Status: unchanged Assessment/Plan pt diet abx prn cbc bmp am Subjective Constitutional: Reports: weakness Allergies: Coded Allergies: BENZTROPINE (Unverified Allergy, Unknown, 02/22/14) HALOPERIDOL (Unverified Allergy, Unknown, 02/22/14) PENICILLINS (Unverified Allergy, Unknown, 04/14/18) tolerated Ceftriaxone 06/2017 All Systems: reviewed and negative except above Subjective calm in bed sleepy Objective Last 24 Hour Vital Signs Date Time Temp Pulse Resp B/P (MAP) Pulse Ox O2 Delivery O2 Flow Rate FiO2 04/27/18 09:00 Room Air 04/27/18 08:00 97.9 88 18 124/68 (86) 97 04/27/18 00:00 98.6 92 17 138/76 (96) 97 04/26/18 21:00 Room Air 04/26/18 15:48 98.0 61 18 107/63 (78) 98 Intake and Output 04/26/18 04/27/18 18:59 06:59 Intake Total 960 ml Balance 960 ml Intake Oral 960 ml # Voids 3 3 # Bowel Movements 2 Laboratory Tests 04/27/18 08:35: White Blood Count 22.9*H, Red Blood Count 3.85L, Hemoglobin 11.6L, Hematocrit 34.8L, Mean Corpuscular Volume 90, Mean Corpuscular Hemoglobin 30.1, Mean Corpuscular Hemoglobin Concent 33.3, Red Cell Distribution Width 15.2H, Platelet Count 566H, Mean Platelet Volume 5.5L, Neutrophils (%) (Auto) , Lymphocytes (%) (Auto) , Monocytes (%) (Auto) , Eosinophils (%) (Auto) , Basophils (%) (Auto) , Differential Total Cells Counted 100, Neutrophils % ( Manual) 71, Lymphocytes % (Manual) 26, Monocytes % (Manual) 3, Eosinophils % ( Manual) 0, Basophils % (Manual) 0, Band Neutrophils 0, Platelet Estimate IncreasedH, Platelet Morphology Normal, Anisocytosis 1+, Sodium Level 141, Potassium Level 3.7, Chloride Level 104, Carbon Dioxide Level 25, Anion Gap 12, Blood Urea Nitrogen 16, Creatinine 1.0, Estimat Glomerular Filtration Rate > 60 , Glucose Level 84, Calcium Level 8.8, Phosphorus Level 3.6, Magnesium Level 2.0 , Total Bilirubin 0.5, Direct Bilirubin 0.2, Aspartate Amino Transf (AST/SGOT) 21, Alanine Aminotransferase (ALT/SGPT) 27, Alkaline Phosphatase 90, C-Reactive Protein, Quantitative 9.4H, Total Protein 6.5, Albumin 2.7L Height (Feet): 5 Height (Inches): 10.00 Weight (Pounds): 164 General Appearance: lethargic EENT: normal ENT inspection Neck: normal alignment Cardiovascular: normal peripheral pulses, normal rate, regular rhythm Respiratory/Chest: chest wall non-tender, lungs clear, normal breath sounds Abdomen: normal bowel sounds, non tender, soft Extremities: normal inspection Edema: no edema noted Arm (L), no edema noted Arm (R), no edema noted Leg (L), no edema noted Leg (R), no edema noted Pedal (L), no edema noted Pedal (R), no edema noted Generalized Neurologic: motor weakness Skin: normal pigmentation, warm/dry Julio Higgins DO Apr 27, 2018 13:01
--- NOTE | 2018-04-27 15:53 | NUR ---
[employer] SI: LEUKOCYTOSIS T. 97.9 HR 88 RR 18 B/P 124/68 RA 98% WBC 22.9 IS: ZYPREXA PO SEROQUEL PO HEPARIN SUBC MED/SURG STATUS
[2018-04-27 16:00] VITALS: BP 123/82
--- NOTE | 2018-04-27 16:54 | Cardiac Electrophysiology PN ---
Assessment/Plan Assessment/Plan 1. Tachycardia with heart rate of 120s. The patient refused ECG. This could signify anxiety or infection. 2. Hypertension, on Norvasc 5 mg daily. 3. Schizophrenia. 4. Right facial basal cell carcinoma, status post surgery with necrotic skin. 5. Dysphagia, resolved. The patient had EGD, followup with Dr. Ferguson. Subjective Subjective No new events. Comfortable on NMB Objective Last 24 Hour Vital Signs Date Time Temp Pulse Resp B/P (MAP) Pulse Ox O2 Delivery O2 Flow Rate FiO2 04/27/18 09:00 Room Air 04/27/18 08:00 97.9 88 18 124/68 (86) 97 04/27/18 00:00 98.6 92 17 138/76 (96) 97 04/26/18 21:00 Room Air Intake and Output 04/26/18 04/27/18 18:59 06:59 Intake Total 960 ml Balance 960 ml Intake Oral 960 ml # Voids 3 3 # Bowel Movements 2 Laboratory Tests Test 04/27/18 08:35 White Blood Count 22.9 K/UL (4.8-10.8) *H Red Blood Count 3.85 M/UL (4.70-6.10) L Hemoglobin 11.6 G/DL (14.2-18.0) L Hematocrit 34.8 % (42.0-52.0) L Mean Corpuscular Volume 90 FL (80-99) Mean Corpuscular Hemoglobin 30.1 PG (27.0-31.0) Mean Corpuscular Hemoglobin Concent 33.3 G/DL (32.0-36.0) Red Cell Distribution Width 15.2 % (11.6-14.8) H Platelet Count 566 K/UL (150-450) H Mean Platelet Volume 5.5 FL (6.5-10.1) L Neutrophils (%) (Auto) % (45.0-75.0) Lymphocytes (%) (Auto) % (20.0-45.0) Monocytes (%) (Auto) % (1.0-10.0) Eosinophils (%) (Auto) % (0.0-3.0) Basophils (%) (Auto) % (0.0-2.0) Differential Total Cells Counted 100 Neutrophils % (Manual) 71 % (45-75) Lymphocytes % (Manual) 26 % (20-45) Monocytes % (Manual) 3 % (1-10) Eosinophils % (Manual) 0 % (0-3) Basophils % (Manual) 0 % (0-2) Band Neutrophils 0 % (0-8) Platelet Estimate Increased H Platelet Morphology Normal Anisocytosis 1+ Sodium Level 141 MMOL/L (136-145) Potassium Level 3.7 MMOL/L (3.5-5.1) Chloride Level 104 MMOL/L (98-107) Carbon Dioxide Level 25 MMOL/L (21-32) Anion Gap 12 mmol/L (5-15) Blood Urea Nitrogen 16 mg/dL (7-18) Creatinine 1.0 MG/DL (0.55-1.30) Estimat Glomerular Filtration Rate > 60 mL/min (>60) Glucose Level 84 MG/DL (74-106) Calcium Level 8.8 MG/DL (8.5-10.1) Phosphorus Level 3.6 MG/DL (2.5-4.9) Magnesium Level 2.0 MG/DL (1.8-2.4) Total Bilirubin 0.5 MG/DL (0.2-1.0) Direct Bilirubin 0.2 MG/DL (0.0-0.3) Aspartate Amino Transf (AST/SGOT) 21 U/L (15-37) Alanine Aminotransferase (ALT/SGPT) 27 U/L (12-78) Alkaline Phosphatase 90 U/L (46-116) C-Reactive Protein, Quantitative 9.4 mg/dL (0.00-0.90) H Total Protein 6.5 G/DL (6.4-8.2) Albumin 2.7 G/DL (3.4-5.0) L Objective HEAD AND NECK: Shows no JVD. The right side of his face has a scar. LUNGS: Clear CARDIOVASCULAR: RRR. No GRM ABDOMEN: Soft EXTREMITIES: 2+ edema. Teto Branch MD Apr 27, 2018 16:54
--- NOTE | 2018-04-27 19:19 | NUR ---
HAND-OFF: Report given to FARHEEN Garcia.
--- NOTE | 2018-04-27 19:30 | NUR ---
NURSE NOTES: RECEIVED PATIENT LYING IN BED, AWAKE, ORIENTED TO SELF, REALITY ORIENTATION PROVIDED DURING ASSESSMENT. NO IV ACCESS, MD AWARE. ELEVATED WBC, MD AWARE, NNO. ALL NEEDS ANTICIPATED AND MET BY STAFF SECONDARY TO COGNITIVE STATUS. NO REPORT OF GI DISTRESS, NO N/V/D. SIDE RAILS UP X3/BED IN LOWEST POSITION FOR SAFETY. CALL LIGHT WITHIN REACH. NAD. FREQUENT ROUNDING FOR SAFETY/NEEDS.
--- NOTE | 2018-04-27 20:24 | General Progress Note ---
Assessment/Plan Assessment/Plan # Leukocytosis. Secondary to underlying infection, sepsis --> Monitor and trend wbc for improvement -->16.6-->23.0-->31.5-->9.2-->11.2-->22.9 --> Peripheral smear has been reviewed, no blasts noted --> Medications have been reviewed --> Imaging has been reviewed --> has been started on abx, empiric treatment --> trend 32k-->9k-->10k --> per ID management # Anemia of chronic disease --> anemia panel has been reviewed --> trend hgb 12.8-->10.2 # FTT --> refusing care # Sepsis. 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 # COPD. # Dysphasia # Schizophrenia # HTN. # Legally blind Time and date note entered in EMR does not reflect time and date of encounter. GREATLY APPRECIATE CONSULTATION. Subjective Constitutional: Denies: no symptoms, chills, diaphoresis, fever, malaise, weakness, other HEENT: Denies: no symptoms, eye pain, blurred vision, tearing, double vision, ear pain, ear discharge, nose pain, nose congestion, throat pain, throat swelling, mouth pain, mouth swelling, other Cardiovascular: Denies: no symptoms, chest pain, edema, irregular heart rate, lightheadedness, palpitations, syncope, other Respiratory: Denies: no symptoms, cough, orthopnea, shortness of breath, SOB with excertion, SOB at rest, sputum, stridor, wheezing, other Gastrointestinal/Abdominal: Denies: no symptoms, abdomen distended, abdominal pain, black stools, tarry stools, blood in stool, constipated, diarrhea, difficulty swallowing, nausea, poor appetite, poor fluid intake, rectal bleeding , vomiting, other Neurologic/Psychiatric: Denies: no symptoms, anxiety, depressed, emotional problems, headache, numbness, paresthesia, pre-existing deficit, seizure, tingling, tremors, weakness, other Endocrine: Denies: no symptoms, excessive sweating, flushing, intolerance to cold, intolerance to heat, increased hunger, increased thirst, increased urine, unexplained weight gain, unexplained weight loss, other Allergies: Coded Allergies: BENZTROPINE (Unverified Allergy, Unknown, 02/22/14) HALOPERIDOL (Unverified Allergy, Unknown, 02/22/14) PENICILLINS (Unverified Allergy, Unknown, 04/14/18) tolerated Ceftriaxone 06/2017 Subjective 04/15: Pt awake and agitated. No acute events. Pt refusing meds. 04/16: wbc severely elevated, seen by Id, on broad spectrum antifungals, foul language, very aggressive 04/18: no events, mumbling, minimally conversive, no fevers, down on ivf 04/19: pt is awake and resting in bed. refusing care, aggressive, no events 04/20: Pt is awake and alert, refusing care, minimally conversive, on abx, wbc have improved. 04/21: Pt is awake and resting in bed, aggressive, mumbling, 04/22: Pt is resting in bed. PEG has been defered, the patient has shown improvement in caloric intake and shows no signs of dysphagia or risk for aspiration. 04/23: Pt is seen in the room, resting in bed, refusing care, on abx, pending labs 17/: No events, has been agitated overnight, refusing care 04/25: Pt is awake and resting in bed, refusing labs, agitated, screaming, refusing care 04/26: no major events, no fevers or chills, no chest pain or sob 04/27: pt is seen by bedside, awake and comfortable, wbc is at 22.9 today. Objective Last 24 Hour Vital Signs Date Time Temp Pulse Resp B/P (MAP) Pulse Ox O2 Delivery O2 Flow Rate FiO2 04/27/18 16:00 98.2 81 20 123/82 (96) 97 04/27/18 09:00 Room Air 04/27/18 08:00 97.9 88 18 124/68 (86) 97 04/27/18 00:00 98.6 92 17 138/76 (96) 97 04/26/18 21:00 Room Air Intake and Output 04/26/18 04/27/18 19:00 07:00 Intake Total 960 ml Balance 960 ml Intake Oral 960 ml # Voids 3 3 # Bowel Movements 2 Laboratory Tests 04/27/18 08:35: White Blood Count 22.9*H, Red Blood Count 3.85L, Hemoglobin 11.6L, Hematocrit 34.8L, Mean Corpuscular Volume 90, Mean Corpuscular Hemoglobin 30.1, Mean Corpuscular Hemoglobin Concent 33.3, Red Cell Distribution Width 15.2H, Platelet Count 566H, Mean Platelet Volume 5.5L, Neutrophils (%) (Auto) , Lymphocytes (%) (Auto) , Monocytes (%) (Auto) , Eosinophils (%) (Auto) , Basophils (%) (Auto) , Differential Total Cells Counted 100, Neutrophils % ( Manual) 71, Lymphocytes % (Manual) 26, Monocytes % (Manual) 3, Eosinophils % ( Manual) 0, Basophils % (Manual) 0, Band Neutrophils 0, Platelet Estimate IncreasedH, Platelet Morphology Normal, Anisocytosis 1+, Sodium Level 141, Potassium Level 3.7, Chloride Level 104, Carbon Dioxide Level 25, Anion Gap 12, Blood Urea Nitrogen 16, Creatinine 1.0, Estimat Glomerular Filtration Rate > 60 , Glucose Level 84, Calcium Level 8.8, Phosphorus Level 3.6, Magnesium Level 2.0 , Total Bilirubin 0.5, Direct Bilirubin 0.2, Aspartate Amino Transf (AST/SGOT) 21, Alanine Aminotransferase (ALT/SGPT) 27, Alkaline Phosphatase 90, C-Reactive Protein, Quantitative 9.4H, Total Protein 6.5, Albumin 2.7L Height (Feet): 5 Height (Inches): 10.00 Weight (Pounds): 164 Objective Vitals: Have been reviewed General Appearance: alert, agitated Head: normocephalic, atraumatic Eyes: right eye abnormal pupil - right eye has patch which covers the right temporal area of face as well from cancer ressection; left eye other - visible cataract, glassy/hazy appearance, unchanged ENT: hearing grossly normal, other Neck: full range of motion Respiratory: chest non-tender, lungs clear Cardiovascular no edema, tachycardia Gastrointestinal: normal bs, non tender, soft MSK: back normal, non-tender, bilateral hand contractures Skin: normal color, no rash, warm/dry Jr Daly MD Apr 27, 2018 20:24
[2018-04-27] MEDS: Tamsulosin 0.4mg cap ORAL SCH (21:18)
[2018-04-28] VITALS: BP 131/75
--- NOTE | 2018-04-28 07:30 | NUR ---
HAND-OFF: Report given to FARHENE EDMONDS.
[2018-04-28 08:00] VITALS: BP 126/82
[2018-04-28] MEDS: Aspirin Baby 81mg ORAL SCH (08:33)
[2018-04-28] MEDS: Phospha 250 Neutral tab ORAL SCH ×3 (08:33→17:41)
[2018-04-28] MEDS: OLANZapine 10mg tab ORAL SCH ×3 (08:33→17:41)
[2018-04-28] MEDS: Magnesium Oxide 400mg tab ORAL SCH ×3 (08:34→17:40)
[2018-04-28] MEDS: LORazepam 1mg tab ORAL SCH ×2 (08:34→17:40)
[2018-04-28] MEDS: Ascorbic Acid 500mg tab ORAL SCH (08:34)
[2018-04-28] MEDS: Heparin 5000 units/ml inj SUBQ SCH ×2 (08:35→21:14)
--- NOTE | 2018-04-28 09:34 | Infectious Diseases Prog Note ---
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 Wnd Cx : GPC -hx of superinfected necrotic mass and possible micro abscess s/p Tx 06/2017 -wound cx MRSA, diphterouids, ESBL Proteus 04/14/19 Wound Cx Providencia and MRSA FTT COPD dysphasia schizophrenia HTN MDD legally blind hx of VRE/MRSA colonization Plan: - Monitor off abx for today If leukocytosis increasing will try Bactrim again but patient has been refusing meds - Repeat blood and Urine Cx - 04/24/18 SP PO Bactrim DS BID - 04/20/18 SP empiric Azactam , Flagyl and IV Vanco d# 6/ - 04/15/18 SP Ceftriaxone d# 2 -Monitor CBC/CMP, temperatures Subjective Allergies: Coded Allergies: BENZTROPINE (Unverified Allergy, Unknown, 02/22/14) HALOPERIDOL (Unverified Allergy, Unknown, 02/22/14) PENICILLINS (Unverified Allergy, Unknown, 04/14/18) tolerated Ceftriaxone 06/2017 Subjective Patient intermittently refusing labs and meds Afebrile Leukocytosis 22.9 yesterday Objective Vital Signs Last 24 Hour Vital Signs Date Time Temp Pulse Resp B/P (MAP) Pulse Ox O2 Delivery O2 Flow Rate FiO2 04/28/18 08:36 100 126/82 04/28/18 08:00 97.4 100 20 126/82 (97) 96 04/28/18 00:00 98.7 97 17 131/75 (93) 93 04/27/18 21:30 Room Air 04/27/18 16:00 98.2 81 20 123/82 (96) 97 Height (Feet): 5 Height (Inches): 10.00 Weight (Pounds): 164 Objective General: NAD, irritable HEENT: NCAT, right eye with large ulcer no surrounding erythema or purulence but scar and some necrotic tissue present, left eye - visible cataract, glassy/ hazy appearance Respiratory: CATB, No W/C Cardiovascular no edema, tachycardia Gastrointestinal: normal bowel sounds, non tender, soft Current Medications Medications (Trade) Dose Ordered Sig/Jordi Route PRN Reason Start Time Stop Time Status Last Admin Dose Admin Amlodipine Besylate (Norvasc) 5 mg DAILY ORAL 04/14/18 09:00 05/14/18 08:59 04/28/18 08:36 Ascorbic Acid (Vitamin C) 500 mg DAILY ORAL 04/14/18 09:00 05/14/18 08:59 04/28/18 08:34 Aspirin (ASA) 81 mg DAILY ORAL 04/14/18 09:00 05/14/18 08:59 04/28/18 08:33 Famotidine (Pepcid) 20 mg BID ORAL 04/18/18 18:00 05/18/18 17:59 04/28/18 08:33 Heparin Sodium (Porcine) (Heparin 5000 units/ml) 5,000 units EVERY 12 HOURS SUBQ 04/14/18 09:00 05/14/18 08:59 04/28/18 08:35 Lorazepam (Ativan) 1 mg Q6H PRN ORAL For Anxiety 04/25/18 15:00 05/02/18 14:59 Lorazepam (Ativan) 2 mg BID ORAL 04/24/18 18:00 05/01/18 17:59 04/28/18 08:34 Magnesium Oxide (Mag-Ox 400mg) 400 mg THREE TIMES A DAY ORAL 04/20/18 13:00 05/20/18 12:59 04/28/18 08:34 Multivitamins (Multivitamins) 1 tab DAILY ORAL 04/14/18 09:00 05/14/18 08:59 04/28/18 08:34 Olanzapine (ZyPREXA) 10 mg TID ORAL 04/25/18 18:00 05/25/18 17:59 04/28/18 08:33 Phosphorus (Phospha 250 Neutral) 500 mg THREE TIMES A DAY ORAL 04/20/18 13:00 05/20/18 12:59 04/28/18 08:33 Quetiapine Fumarate (SEROquel) 150 mg EVERY 8 HOURS ORAL 04/21/18 06:00 05/21/18 05:59 04/28/18 05:52 Tamsulosin HCl (Flomax) 0.4 mg BEDTIME ORAL 04/16/18 21:00 05/16/18 20:59 04/27/18 21:18 Jozef Greene MD Apr 28, 2018 09:34
--- NOTE | 2018-04-28 10:37 | Nephrology Progress Note ---
Assessment/Plan Problem List: (1) Dehydration (2) HTN (hypertension) (3) Failure to thrive in adult (4) Schizophrenia Assessment WBC jeb (1) Dysphasia (2) Encounter for PEG (percutaneous endoscopic gastrostomy) (3) Schizophrenia (4) Failure to thrive in adult (5) Generalized weakness (6) Severe malnutrition (7) Dehydration (8) Schizophrenia (9) HTN (10) Legally Blind Plan CBC pending- Ua pending CXR pending IV out on PO K and Phos Flomax Psych mangement per consultants Subjective ROS Limited/Unobtainable: No Constitutional: Reports: malaise Objective Objective Last 24 Hour Vital Signs Date Time Temp Pulse Resp B/P (MAP) Pulse Ox O2 Delivery O2 Flow Rate FiO2 04/28/18 08:36 100 126/82 04/28/18 08:00 97.4 100 20 126/82 (97) 96 04/28/18 00:00 98.7 97 17 131/75 (93) 93 04/27/18 21:30 Room Air 04/27/18 16:00 98.2 81 20 123/82 (96) 97 Intake and Output 04/27/18 04/28/18 19:00 07:00 Intake Total 480 ml 300 ml Balance 480 ml 300 ml Intake Oral 480 ml 300 ml # Voids 1 Height (Feet): 5 Height (Inches): 10.00 Weight (Pounds): 164 General Appearance: no apparent distress Objective no change Al Roper MD Apr 28, 2018 10:37
--- NOTE | 2018-04-28 11:20 | Diagnostic Imaging Report ---
Indication: Cough Comparison: 04/15/2018 A single view chest radiograph was obtained. Findings: Cardiomediastinal appearance is within normal limits for age. The lungs are clear. Pulmonary vascularity is appropriate. The diaphragmatic contour is smooth and costophrenic angles are sharp. No pleural effusions are identified. The bones are unremarkable. Impression: No acute findings
[2018-04-28 12:00] VITALS: BP 117/71
--- NOTE | 2018-04-28 12:16 | General Progress Note ---
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 SNOMED: 99903228 (2) Dehydration ICD Codes: E86.0 - Dehydration SNOMED: 81335072 (3) Basal cell carcinoma ICD Codes: C44.91 - Basal cell carcinoma of skin, unspecified SNOMED: 096719396 (4) Generalized weakness ICD Codes: R53.1 - Weakness SNOMED: 78564339 (5) Cellulitis and abscess of face ICD Codes: L03.211 - Cellulitis of face; L02.01 - Cutaneous abscess of face SNOMED: 662401073 (6) Severe malnutrition ICD Codes: E43 - Unspecified severe protein-calorie malnutrition SNOMED: 38954876 (7) Failure to thrive in adult ICD Codes: R62.7 - Adult failure to thrive SNOMED: 001066576 (8) Periorbital swelling ICD Codes: H57.8 - Periorbital swelling SNOMED: 463267304 (9) Dysphasia ICD Codes: R47.02 - Dysphasia SNOMED: 39186918 (10) HTN (hypertension) ICD Codes: I10 - Essential (primary) hypertension SNOMED: 58477666 (11) UTI (urinary tract infection) ICD Codes: N39.0 - Urinary tract infection, site not specified SNOMED: 38367924 Status: unchanged Assessment/Plan pt diet abx prn cbc bmp am Subjective Constitutional: Reports: weakness Allergies: Coded Allergies: BENZTROPINE (Unverified Allergy, Unknown, 02/22/14) HALOPERIDOL (Unverified Allergy, Unknown, 02/22/14) PENICILLINS (Unverified Allergy, Unknown, 04/14/18) tolerated Ceftriaxone 06/2017 All Systems: reviewed and negative except above Subjective calm in bed sleepy Objective Last 24 Hour Vital Signs Date Time Temp Pulse Resp B/P (MAP) Pulse Ox O2 Delivery O2 Flow Rate FiO2 04/28/18 12:00 96.9 105 20 117/71 (86) 94 04/28/18 08:36 100 126/82 04/28/18 08:00 97.4 100 20 126/82 (97) 96 04/28/18 00:00 98.7 97 17 131/75 (93) 93 04/27/18 21:30 Room Air 04/27/18 16:00 98.2 81 20 123/82 (96) 97 Intake and Output 04/27/18 04/28/18 19:00 07:00 Intake Total 480 ml 300 ml Balance 480 ml 300 ml Intake Oral 480 ml 300 ml # Voids 1 Height (Feet): 5 Height (Inches): 10.00 Weight (Pounds): 164 General Appearance: lethargic EENT: normal ENT inspection Neck: normal alignment Cardiovascular: normal peripheral pulses, normal rate, regular rhythm Respiratory/Chest: chest wall non-tender, lungs clear, normal breath sounds Abdomen: normal bowel sounds, non tender, soft Extremities: normal inspection Edema: no edema noted Arm (L), no edema noted Arm (R), no edema noted Leg (L), no edema noted Leg (R), no edema noted Pedal (L), no edema noted Pedal (R), no edema noted Generalized Neurologic: motor weakness Skin: normal pigmentation, warm/dry Julio Higgins DO Apr 28, 2018 12:16
--- NOTE | 2018-04-28 13:46 | GI Progress Note ---
Assessment/Plan Problems: (1) Dysphasia ICD Codes: R47.02 - Dysphasia SNOMED: 72493751 (2) Schizophrenia ICD Codes: F20.9 - Schizophrenia, unspecified SNOMED: 95622458 (3) Poor fluid intake ICD Codes: R63.8 - Other symptoms and signs concerning food and fluid intake SNOMED: 673600342 (4) Failure to thrive in adult ICD Codes: R62.7 - Adult failure to thrive SNOMED: 580900235 (5) Severe malnutrition ICD Codes: E43 - Unspecified severe protein-calorie malnutrition SNOMED: 84633877 (6) Dehydration ICD Codes: E86.0 - Dehydration SNOMED: 53197400 (7) Schizophreniform psychosis ICD Codes: F20.9 - Schizophreniform psychosis SNOMED: 30032416 (8) Cellulitis and abscess of face ICD Codes: L03.211 - Cellulitis of face; L02.01 - Cutaneous abscess of face SNOMED: 643309693 Status: stable, unchanged Status Narrative Discussed with Dr. Ferguson. Assessment/Plan psych f/u defer PEG, the patient has shown improvement in caloric intake and shows no signs of dysphagia or risk for aspiration. Patient on regular diet push p.o. One-to-one feeder IV/p.o. hydration Antibiotics PPI Follow-up labs The patient was seen and examined at bedside and all new and available data was reviewed in the patients chart. I agree with the above findings, impression and plan. (Patient seen earlier today. Signature stamp does not reflect patient encounter time.). - Juliocesar Ferguson MD Subjective Subjective Limited Objective Last 24 Hour Vital Signs Date Time Temp Pulse Resp B/P (MAP) Pulse Ox O2 Delivery O2 Flow Rate FiO2 04/28/18 12:00 96.9 105 20 117/71 (86) 94 04/28/18 09:00 Room Air 04/28/18 08:36 100 126/82 04/28/18 08:00 97.4 100 20 126/82 (97) 96 04/28/18 00:00 98.7 97 17 131/75 (93) 93 04/27/18 21:30 Room Air 04/27/18 16:00 98.2 81 20 123/82 (96) 97 Intake and Output 04/27/18 04/28/18 18:59 06:59 Intake Total 480 ml 300 ml Balance 480 ml 300 ml Intake Oral 480 ml 300 ml # Voids 1 Height (Feet): 5 Height (Inches): 10.00 Weight (Pounds): 164 General Appearance: WD/WN, no apparent distress, alert Cardiovascular: normal rate Respiratory/Chest: normal breath sounds, no respiratory distress Abdominal Exam: normal bowel sounds, non tender, soft Extremities: non-tender Objective Legally blind Roaxnna Saavedra NP Apr 28, 2018 13:46
--- NOTE | 2018-04-28 14:04 | NUR ---
NURSE NOTES: Patient has episodes of impulsiveness and using foul words to staff and MD. patient appeared non compliant to care. will cont to monitor.
--- NOTE | 2018-04-28 14:33 | General Progress Note ---
Assessment/Plan Assessment/Plan # Leukocytosis. Secondary to underlying infection, sepsis --> Monitor and trend wbc for improvement -->16.6-->23.0-->31.5-->9.2-->11.2-->22.9 --> Peripheral smear has been reviewed, no blasts noted --> Medications have been reviewed --> Imaging has been reviewed --> has been started on abx, empiric treatment --> per ID management # Anemia of chronic disease --> anemia panel has been reviewed --> trend hgb 12.8-->10.2 # FTT --> refusing care --> defer peg tube given improvement in po intake # Sepsis. 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 # COPD. # Dysphasia # Schizophrenia # HTN. # Legally blind Time and date note entered in EMR does not reflect time and date of encounter. GREATLY APPRECIATE CONSULTATION. Subjective Constitutional: Denies: no symptoms, chills, diaphoresis, fever, malaise, weakness, other HEENT: Denies: no symptoms, eye pain, blurred vision, tearing, double vision, ear pain, ear discharge, nose pain, nose congestion, throat pain, throat swelling, mouth pain, mouth swelling, other Cardiovascular: Denies: no symptoms, chest pain, edema, irregular heart rate, lightheadedness, palpitations, syncope, other Respiratory: Denies: no symptoms, cough, orthopnea, shortness of breath, SOB with excertion, SOB at rest, sputum, stridor, wheezing, other Gastrointestinal/Abdominal: Denies: no symptoms, abdomen distended, abdominal pain, black stools, tarry stools, blood in stool, constipated, diarrhea, difficulty swallowing, nausea, poor appetite, poor fluid intake, rectal bleeding , vomiting, other Genitourinary: Denies: no symptoms, burning, discharge, frequency, flank pain, hematuria, incontinence, pain, urgency, other Neurologic/Psychiatric: Denies: no symptoms, anxiety, depressed, emotional problems, headache, numbness, paresthesia, pre-existing deficit, seizure, tingling, tremors, weakness, other Allergies: Coded Allergies: BENZTROPINE (Unverified Allergy, Unknown, 02/22/14) HALOPERIDOL (Unverified Allergy, Unknown, 02/22/14) PENICILLINS (Unverified Allergy, Unknown, 04/14/18) tolerated Ceftriaxone 06/2017 Subjective 04/15: Pt awake and agitated. No acute events. Pt refusing meds. 04/16: wbc severely elevated, seen by Id, on broad spectrum antifungals, foul language, very aggressive 04/18: no events, mumbling, minimally conversive, no fevers, down on ivf 04/19: pt is awake and resting in bed. refusing care, aggressive, no events 04/20: Pt is awake and alert, refusing care, minimally conversive, on abx, wbc have improved. 04/21: Pt is awake and resting in bed, aggressive, mumbling, 04/22: Pt is resting in bed. PEG has been defered, the patient has shown improvement in caloric intake and shows no signs of dysphagia or risk for aspiration. 04/23: Pt is seen in the room, resting in bed, refusing care, on abx, pending labs 17/: No events, has been agitated overnight, refusing care 04/25: Pt is awake and resting in bed, refusing labs, agitated, screaming, refusing care 04/26: no major events, no fevers or chills, no chest pain or sob 04/27: pt is seen by bedside, awake and comfortable, wbc is at 22.9 today. 04/28: peg has been deferred, gi recs reviewed, no events, slightly agitated Objective Last 24 Hour Vital Signs Date Time Temp Pulse Resp B/P (MAP) Pulse Ox O2 Delivery O2 Flow Rate FiO2 04/28/18 12:00 96.9 105 20 117/71 (86) 94 04/28/18 09:00 Room Air 04/28/18 08:36 100 126/82 04/28/18 08:00 97.4 100 20 126/82 (97) 96 04/28/18 00:00 98.7 97 17 131/75 (93) 93 04/27/18 21:30 Room Air 04/27/18 16:00 98.2 81 20 123/82 (96) 97 Intake and Output 04/27/18 04/28/18 19:00 07:00 Intake Total 480 ml 300 ml Balance 480 ml 300 ml Intake Oral 480 ml 300 ml # Voids 1 Height (Feet): 5 Height (Inches): 10.00 Weight (Pounds): 164 Objective Vitals: Have been reviewed General Appearance: alert, agitated Head: normocephalic, atraumatic Eyes: right eye abnormal pupil - right eye has patch which covers the right temporal area of face as well from cancer ressection; left eye other - visible cataract, glassy/hazy appearance, unchanged ENT: hearing grossly normal, other Neck: full range of motion Respiratory: chest non-tender, lungs clear Cardiovascular no edema, tachycardia Gastrointestinal: normal bs, non tender, soft MSK: back normal, non-tender, bilateral hand contractures Skin: normal color, no rash, warm/dry Jr Daly MD Apr 28, 2018 14:33
--- NOTE | 2018-04-28 15:12 | Cardiac Electrophysiology PN ---
Assessment/Plan Assessment/Plan 1. Tachycardia with heart rate of 120s. Refused ECG. This could be due to anxiety or infection. 2. Hypertension, on Norvasc 5 mg daily. 3. Schizophrenia. 4. Right facial basal cell carcinoma, status post surgery with necrotic skin. 5. Dysphagia, resolved. The patient had EGD, followup with Dr. Ferguson. RONNIE RN Subjective Subjective No new events.Refusing meds. RN at bedside Objective Last 24 Hour Vital Signs Date Time Temp Pulse Resp B/P (MAP) Pulse Ox O2 Delivery O2 Flow Rate FiO2 04/28/18 12:00 96.9 105 20 117/71 (86) 94 04/28/18 09:00 Room Air 04/28/18 08:36 100 126/82 04/28/18 08:00 97.4 100 20 126/82 (97) 96 04/28/18 00:00 98.7 97 17 131/75 (93) 93 04/27/18 21:30 Room Air 04/27/18 16:00 98.2 81 20 123/82 (96) 97 Intake and Output 04/27/18 04/28/18 18:59 06:59 Intake Total 480 ml 300 ml Balance 480 ml 300 ml Intake Oral 480 ml 300 ml # Voids 1 Objective HEAD AND NECK: No JVD. The right side of his face has a scar. LUNGS: Clear CARDIOVASCULAR: RRR. No GRM ABDOMEN: Soft EXTREMITIES: 2+ edema. Teto Branch MD Apr 28, 2018 15:12
[2018-04-28 16:00] VITALS: BP 120/81
--- NOTE | 2018-04-28 17:05 | NUR ---
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 96.8 HR 102 RR 20 B/P 120/81 RA 98% IS: ZYPREXA PO SEROQUEL PO MAG OX PO HEPARIN SUBC PLACEMENT PENDING MED/SURG STATUS
--- NOTE | 2018-04-28 17:41 | NUR ---
NURSE NOTES: patient appeared upset and yelled @ staff and using fould words. Though, he is not trying to get out of bed and be combative. bed alarm is activated. will cont to monitor.
--- NOTE | 2018-04-28 19:04 | NUR ---
HAND-OFF: Report given to Lizbeth.
--- NOTE | 2018-04-28 19:30 | NUR ---
HAND-OFF: Report given to FARHEEN EDMONDS. Addendum: 04/28/18 at 1941 by PAULINA VILLARREAL LVN CHARTED IN ERROR
--- NOTE | 2018-04-28 19:30 | NUR ---
NURSE NOTES: Patient asleep in bed, not in acute respiratory distress, no signs of pain. Call light and needs in reach. Bed in lowest position, lock engaged and alarm on. Will continue to monitor.
[2018-04-28 20:00] VITALS: BP 110/73
[2018-04-28] MEDS: Tamsulosin 0.4mg cap ORAL SCH (21:05)
--- NOTE | 2018-04-28 22:00 | NUR ---
NURSE NOTES: Patient was calm and able to take evening meds. Explained to the patient that urine specimen needs to be collected, may use urinal to collect. Patient got agitated and calling staff names. He said he wanted to go back to sleep.
[2018-04-29] VITALS: BP 108/68
[2018-04-29 04:00] VITALS: BP 118/73
--- NOTE | 2018-04-29 06:01 | NUR ---
NURSE NOTES: Attempted to collect urine again this AM but patient is agitated at this time and combative. Patient refused to take morning med.
--- NOTE | 2018-04-29 07:17 | NUR ---
HAND-OFF: Report given to Wendie Olsen.
[2018-04-29 08:00] VITALS: BP 123/65
[2018-04-29] MEDS: Heparin 5000 units/ml inj SUBQ SCH ×2 (09:00→21:18)
[2018-04-29] MEDS: Ascorbic Acid 500mg tab ORAL SCH (09:00)
[2018-04-29] MEDS: LORazepam 1mg tab ORAL SCH ×2 (09:01→17:11)
[2018-04-29] MEDS: OLANZapine 10mg tab ORAL SCH ×3 (09:01→17:11)
[2018-04-29] MEDS: Aspirin Baby 81mg ORAL SCH (09:02)
[2018-04-29] MEDS: Phospha 250 Neutral tab ORAL SCH ×3 (09:02→17:11)
[2018-04-29] MEDS: Magnesium Oxide 400mg tab ORAL SCH ×3 (09:02→17:10)
--- NOTE | 2018-04-29 09:11 | General Progress Note ---
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 SNOMED: 06364101 (2) Dehydration ICD Codes: E86.0 - Dehydration SNOMED: 02887150 (3) Basal cell carcinoma ICD Codes: C44.91 - Basal cell carcinoma of skin, unspecified SNOMED: 192779316 (4) Generalized weakness ICD Codes: R53.1 - Weakness SNOMED: 49843355 (5) Cellulitis and abscess of face ICD Codes: L03.211 - Cellulitis of face; L02.01 - Cutaneous abscess of face SNOMED: 689977977 (6) Severe malnutrition ICD Codes: E43 - Unspecified severe protein-calorie malnutrition SNOMED: 65476092 (7) Failure to thrive in adult ICD Codes: R62.7 - Adult failure to thrive SNOMED: 715056049 (8) Periorbital swelling ICD Codes: H57.8 - Periorbital swelling SNOMED: 266719353 (9) Dysphasia ICD Codes: R47.02 - Dysphasia SNOMED: 19917643 (10) HTN (hypertension) ICD Codes: I10 - Essential (primary) hypertension SNOMED: 22896379 (11) UTI (urinary tract infection) ICD Codes: N39.0 - Urinary tract infection, site not specified SNOMED: 90356041 Status: unchanged Assessment/Plan pt diet abx prn cbc bmp am Subjective Constitutional: Reports: weakness Allergies: Coded Allergies: BENZTROPINE (Unverified Allergy, Unknown, 02/22/14) HALOPERIDOL (Unverified Allergy, Unknown, 02/22/14) PENICILLINS (Unverified Allergy, Unknown, 04/14/18) tolerated Ceftriaxone 06/2017 All Systems: reviewed and negative except above Subjective calm in bed sleepy Objective Last 24 Hour Vital Signs Date Time Temp Pulse Resp B/P (MAP) Pulse Ox O2 Delivery O2 Flow Rate FiO2 04/29/18 09:02 67 123/65 04/29/18 04:00 97.9 95 20 118/73 (88) 93 04/29/18 00:00 97.2 84 18 108/68 (81) 99 04/28/18 20:52 Room Air 04/28/18 20:00 97.4 92 18 110/73 (85) 98 04/28/18 16:00 96.8 102 20 120/81 (94) 99 04/28/18 12:00 96.9 105 20 117/71 (86) 94 Intake and Output 04/28/18 04/29/18 19:00 07:00 Intake Total 480 ml 300 ml Balance 480 ml 300 ml Intake Oral 480 ml Other 300 ml # Voids 3 # Bowel Movements 1 Height (Feet): 5 Height (Inches): 10.00 Weight (Pounds): 164 General Appearance: lethargic EENT: normal ENT inspection Neck: normal alignment Cardiovascular: normal peripheral pulses, normal rate, regular rhythm Respiratory/Chest: chest wall non-tender, lungs clear, normal breath sounds Abdomen: normal bowel sounds, non tender, soft Extremities: normal inspection Edema: no edema noted Arm (L), no edema noted Arm (R), no edema noted Leg (L), no edema noted Leg (R), no edema noted Pedal (L), no edema noted Pedal (R), no edema noted Generalized Neurologic: motor weakness Skin: normal pigmentation, warm/dry Julio Higgins DO Apr 29, 2018 09:11
--- NOTE | 2018-04-29 11:16 | NUR ---
NURSE NOTES: Patient appeared to have a filthy mouth and does not engaged to any conversations. Telling him to refrain from rubbing the wound on his right face. Patient refused from eating but drinks his enlive ensure. He appears to be talking to himself. No agitation observed. Keep HOB on semi fowlers to alleviate breathing. siderails are up x3 and does not appears to be trying to get out of bed. will cont to monitor. Dr Roper made aware of the urine specimen not impossible to obtain due to patient's behavior. Had explained the importance of collecting a urine sample but patient remained refused. Patient able to make his needs known. will cont to monitor.
--- NOTE | 2018-04-29 11:46 | Infectious Diseases Prog Note ---
Assessment/Plan Assessment/Plan Sepsis- ?source- r/o UTI, PNA Afebrile Leukocytosis Increased 04/27/18 -CXR 04/28: No acute findings Unclear source no sign of active infection resection of carcinoma from right side of face/eye Wnd Cx : GPC -hx of superinfected necrotic mass and possible micro abscess s/p Tx 06/2017 -wound cx MRSA, diphterouids, ESBL Proteus 04/14/19 Wound Cx Providencia and MRSA FTT COPD dysphasia schizophrenia HTN MDD legally blind hx of VRE/MRSA colonization Plan: - Monitor off abx for today If leukocytosis increasing will try Bactrim again but patient has been refusing meds - Repeat blood and Urine Cx, u/a - 04/24/18 SP PO Bactrim DS BID - 04/20/18 SP empiric Azactam , Flagyl and IV Vanco d# 6/10 - 04/15/18 SP Ceftriaxone d# 2 -Monitor CBC/CMP, temperatures -CBC CMP am Subjective Allergies: Coded Allergies: BENZTROPINE (Unverified Allergy, Unknown, 02/22/14) HALOPERIDOL (Unverified Allergy, Unknown, 02/22/14) PENICILLINS (Unverified Allergy, Unknown, 04/14/18) tolerated Ceftriaxone 06/2017 Subjective afebrile off abx; refusing no labs today Objective Vital Signs Last 24 Hour Vital Signs Date Time Temp Pulse Resp B/P (MAP) Pulse Ox O2 Delivery O2 Flow Rate FiO2 04/29/18 09:02 67 123/65 04/29/18 08:00 97.3 67 19 123/65 (84) 94 04/29/18 04:00 97.9 95 20 118/73 (88) 93 04/29/18 00:00 97.2 84 18 108/68 (81) 99 04/28/18 20:52 Room Air 04/28/18 20:00 97.4 92 18 110/73 (85) 98 04/28/18 16:00 96.8 102 20 120/81 (94) 99 04/28/18 12:00 96.9 105 20 117/71 (86) 94 Height (Feet): 5 Height (Inches): 10.00 Weight (Pounds): 164 Objective General: NAD, irritable HEENT: NCAT, right eye with large ulcer no surrounding erythema or purulence but scar and some necrotic tissue present, left eye - visible cataract, glassy/ hazy appearance Respiratory: CATB, No W/C Cardiovascular no edema, tachycardia Gastrointestinal: normal bowel sounds, non tender, soft Current Medications Medications (Trade) Dose Ordered Sig/Jordi Route PRN Reason Start Time Stop Time Status Last Admin Dose Admin Amlodipine Besylate (Norvasc) 5 mg DAILY ORAL 04/14/18 09:00 05/14/18 08:59 04/29/18 09:02 Ascorbic Acid (Vitamin C) 500 mg DAILY ORAL 04/14/18 09:00 05/14/18 08:59 04/29/18 09:00 Aspirin (ASA) 81 mg DAILY ORAL 04/14/18 09:00 05/14/18 08:59 04/29/18 09:02 Famotidine (Pepcid) 20 mg BID ORAL 04/18/18 18:00 05/18/18 17:59 04/29/18 09:00 Heparin Sodium (Porcine) (Heparin 5000 units/ml) 5,000 units EVERY 12 HOURS SUBQ 04/14/18 09:00 05/14/18 08:59 04/28/18 21:14 Lorazepam (Ativan) 1 mg Q6H PRN ORAL For Anxiety 04/25/18 15:00 05/02/18 14:59 Lorazepam (Ativan) 2 mg BID ORAL 04/24/18 18:00 05/01/18 17:59 04/29/18 09:01 Magnesium Oxide (Mag-Ox 400mg) 400 mg THREE TIMES A DAY ORAL 04/20/18 13:00 05/20/18 12:59 04/29/18 09:02 Multivitamins (Multivitamins) 1 tab DAILY ORAL 04/14/18 09:00 05/14/18 08:59 04/29/18 09:01 Olanzapine (ZyPREXA) 10 mg TID ORAL 04/25/18 18:00 05/25/18 17:59 04/29/18 09:01 Phosphorus (Phospha 250 Neutral) 500 mg THREE TIMES A DAY ORAL 04/20/18 13:00 05/20/18 12:59 04/29/18 09:02 Quetiapine Fumarate (SEROquel) 150 mg EVERY 8 HOURS ORAL 04/21/18 06:00 05/21/18 05:59 04/28/18 21:04 Tamsulosin HCl (Flomax) 0.4 mg BEDTIME ORAL 04/16/18 21:00 05/16/18 20:59 04/28/18 21:05 Carmella Spring M.D. Apr 29, 2018 11:46
[2018-04-29 12:05] VITALS: BP 118/71
--- NOTE | 2018-04-29 12:15 | Nephrology Progress Note ---
Assessment/Plan Problem List: (1) Dehydration (2) HTN (hypertension) (3) Failure to thrive in adult (4) Schizophrenia Assessment WBC jeb (1) Dysphasia (2) Encounter for PEG (percutaneous endoscopic gastrostomy) (3) Schizophrenia (4) Failure to thrive in adult (5) Generalized weakness (6) Severe malnutrition (7) Dehydration (8) Schizophrenia (9) HTN (10) Legally Blind Plan CBC pending- Ua pending CXR pending un coaporative IV out on PO K and Phos Flomax Psych mangement per consultants Subjective ROS Limited/Unobtainable: No Objective Objective Last 24 Hour Vital Signs Date Time Temp Pulse Resp B/P (MAP) Pulse Ox O2 Delivery O2 Flow Rate FiO2 04/29/18 12:05 97.0 80 19 118/71 (87) 98 04/29/18 09:02 67 123/65 04/29/18 08:00 97.3 67 19 123/65 (84) 94 04/29/18 04:00 97.9 95 20 118/73 (88) 93 04/29/18 00:00 97.2 84 18 108/68 (81) 99 04/28/18 20:52 Room Air 04/28/18 20:00 97.4 92 18 110/73 (85) 98 04/28/18 16:00 96.8 102 20 120/81 (94) 99 Intake and Output 04/28/18 04/29/18 19:00 07:00 Intake Total 480 ml 300 ml Balance 480 ml 300 ml Intake Oral 480 ml Other 300 ml # Voids 3 # Bowel Movements 1 Height (Feet): 5 Height (Inches): 10.00 Weight (Pounds): 164 General Appearance: no apparent distress, other - Vulgar Cardiovascular: normal rate Objective no change Al Roper MD Apr 29, 2018 12:15
--- NOTE | 2018-04-29 12:57 | Cardiac Electrophysiology PN ---
Assessment/Plan Assessment/Plan 1. Tachycardia with heart rate of 120s. Refused ECG. This could be due to anxiety or infection. HR better 80s 2. Hypertension, on Norvasc 5 mg daily. 3. Schizophrenia. 4. Right facial basal cell carcinoma, status post surgery with necrotic skin. 5. Dysphagia, resolved. The patient had EGD, followup with Dr. Ferguson. RONNIE RN Subjective Subjective No new events.Refusing meds. Objective Last 24 Hour Vital Signs Date Time Temp Pulse Resp B/P (MAP) Pulse Ox O2 Delivery O2 Flow Rate FiO2 04/29/18 12:05 97.0 80 19 118/71 (87) 98 04/29/18 09:02 67 123/65 04/29/18 08:00 97.3 67 19 123/65 (84) 94 04/29/18 04:00 97.9 95 20 118/73 (88) 93 04/29/18 00:00 97.2 84 18 108/68 (81) 99 04/28/18 20:52 Room Air 04/28/18 20:00 97.4 92 18 110/73 (85) 98 04/28/18 16:00 96.8 102 20 120/81 (94) 99 Intake and Output 04/28/18 04/29/18 19:00 07:00 Intake Total 480 ml 300 ml Balance 480 ml 300 ml Intake Oral 480 ml Other 300 ml # Voids 3 # Bowel Movements 1 Objective HEAD AND NECK: No JVD. The right side of his face has a scar. LUNGS: Clear CARDIOVASCULAR: RRR. No GRM ABDOMEN: Soft EXTREMITIES: 2+ edema. Teto Branch MD Apr 29, 2018 12:57
--- NOTE | 2018-04-29 15:08 | NUR ---
PT note Attempted to see patient for eval but patient refused. Will check again in AM.
--- NOTE | 2018-04-29 15:49 | General Progress Note ---
Assessment/Plan Assessment/Plan # Leukocytosis. Secondary to underlying infection, sepsis --> Monitor and trend wbc for improvement -->16.6-->23.0-->31.5-->9.2-->11.2-->22.9 --> Peripheral smear has been reviewed, no blasts noted --> Medications have been reviewed --> Imaging has been reviewed --> has been started on abx, empiric treatment --> per ID management # Anemia of chronic disease --> anemia panel has been reviewed --> trend hgb 12.8-->10.2 # FTT --> refusing care --> defer peg tube given improvement in po intake # Sepsis. 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 # COPD. # Dysphasia # Schizophrenia # HTN. # Legally blind Time and date note entered in EMR does not reflect time and date of encounter. GREATLY APPRECIATE CONSULTATION. Subjective Constitutional: Denies: no symptoms, chills, diaphoresis, fever, malaise, weakness, other HEENT: Denies: no symptoms, eye pain, blurred vision, tearing, double vision, ear pain, ear discharge, nose pain, nose congestion, throat pain, throat swelling, mouth pain, mouth swelling, other Cardiovascular: Denies: no symptoms, chest pain, edema, irregular heart rate, lightheadedness, palpitations, syncope, other Respiratory: Denies: no symptoms, cough, orthopnea, shortness of breath, SOB with excertion, SOB at rest, sputum, stridor, wheezing, other Genitourinary: Denies: no symptoms, burning, discharge, frequency, flank pain, hematuria, incontinence, pain, urgency, other Neurologic/Psychiatric: Denies: no symptoms, anxiety, depressed, emotional problems, headache, numbness, paresthesia, pre-existing deficit, seizure, tingling, tremors, weakness, other Endocrine: Denies: no symptoms, excessive sweating, flushing, intolerance to cold, intolerance to heat, increased hunger, increased thirst, increased urine, unexplained weight gain, unexplained weight loss, other Allergies: Coded Allergies: BENZTROPINE (Unverified Allergy, Unknown, 02/22/14) HALOPERIDOL (Unverified Allergy, Unknown, 02/22/14) PENICILLINS (Unverified Allergy, Unknown, 04/14/18) tolerated Ceftriaxone 06/2017 Subjective 04/15: Pt awake and agitated. No acute events. Pt refusing meds. 04/16: wbc severely elevated, seen by Id, on broad spectrum antifungals, foul language, very aggressive 04/18: no events, mumbling, minimally conversive, no fevers, down on ivf 04/19: pt is awake and resting in bed. refusing care, aggressive, no events 04/20: Pt is awake and alert, refusing care, minimally conversive, on abx, wbc have improved. 04/21: Pt is awake and resting in bed, aggressive, mumbling, 04/22: Pt is resting in bed. PEG has been defered, the patient has shown improvement in caloric intake and shows no signs of dysphagia or risk for aspiration. 04/23: Pt is seen in the room, resting in bed, refusing care, on abx, pending labs 17/: No events, has been agitated overnight, refusing care 04/25: Pt is awake and resting in bed, refusing labs, agitated, screaming, refusing care 04/26: no major events, no fevers or chills, no chest pain or sob 04/27: pt is seen by bedside, awake and comfortable, wbc is at 22.9 today. 04/28: peg has been deferred, gi recs reviewed, no events, slightly agitated 04/29: no events, refusing care, no change other, remains aggressive, says "don' t touch me" Objective Last 24 Hour Vital Signs Date Time Temp Pulse Resp B/P (MAP) Pulse Ox O2 Delivery O2 Flow Rate FiO2 04/29/18 12:05 97.0 80 19 118/71 (87) 98 04/29/18 09:02 67 123/65 04/29/18 08:00 97.3 67 19 123/65 (84) 94 04/29/18 04:00 97.9 95 20 118/73 (88) 93 04/29/18 00:00 97.2 84 18 108/68 (81) 99 04/28/18 20:52 Room Air 04/28/18 20:00 97.4 92 18 110/73 (85) 98 04/28/18 16:00 96.8 102 20 120/81 (94) 99 Intake and Output 04/28/18 04/29/18 19:00 07:00 Intake Total 480 ml 300 ml Balance 480 ml 300 ml Intake Oral 480 ml Other 300 ml # Voids 3 # Bowel Movements 1 Height (Feet): 5 Height (Inches): 10.00 Weight (Pounds): 164 Objective Vitals: Have been reviewed General Appearance: alert, agitated Head: normocephalic, atraumatic Eyes: right eye abnormal pupil - right eye has patch which covers the right temporal area of face as well from cancer ressection; left eye other - visible cataract, glassy/hazy appearance, unchanged ENT: hearing grossly normal, other Neck: full range of motion Respiratory: chest non-tender, lungs clear Cardiovascular no edema, tachycardia Gastrointestinal: normal bs, non tender, soft MSK: back normal, non-tender, bilateral hand contractures Skin: normal color, no rash, warm/dry Jr Daly MD Apr 29, 2018 15:49
[2018-04-29 16:00] VITALS: BP 113/78
--- NOTE | 2018-04-29 17:29 | NUR ---
NURSE NOTES: We were able to give patient a bedbath just like yesterday. We attempted to placed the condom cath to obtain u/a but then patient eventually removed it and he was able to comb his hair himself and drink his ensure enlive. will cont to monitor.
--- NOTE | 2018-04-29 19:06 | NUR ---
HAND-OFF: Report given to Griselda.
--- NOTE | 2018-04-29 19:30 | NUR ---
NURSE NOTES: RECEIVED PATIENT LYING IN BED, LEGALLY BLIND, AWAKE, VERBALLY RESPONSIVE, AGGRESSIVE, NO SIGNS AND SYMPTOMS OF PAIN, NO FACIAL GRIMACING. NO SIGNS AND SYMPTOMS OF ACUTE CARDIO RESPIRATORY DISTRESS/SHORTNESS OF BREATH. NON COMPLIANT WITH ASSESSMENT. NO REPORT OF GI DISTRESS, NO N/V/D. SIDE RAILS UP X3/BED IN LOWEST POSITION FOR SAFETY. CALL LIGHT WITHIN REACH. FREQUENT ROUNDING FOR SAFETY/NEEDS. NAD. CONTINUE WITH CURRENT PLAN OF CARE.
[2018-04-29 20:00] VITALS: BP 115/86
[2018-04-29] MEDS: Tamsulosin 0.4mg cap ORAL SCH (21:17)
[2018-04-30] VITALS: BP 97/64
[2018-04-30 04:00] VITALS: BP 114/69
--- NOTE | 2018-04-30 07:30 | NUR ---
HAND-OFF: Report given to FARHEEN EDMONDS.
[2018-04-30 08:00] VITALS: BP 133/74
[2018-04-30] MEDS: LORazepam 1mg tab ORAL SCH ×2 (08:16→17:33)
[2018-04-30] MEDS: Aspirin Baby 81mg ORAL SCH (08:16)
[2018-04-30] MEDS: OLANZapine 10mg tab ORAL SCH ×3 (08:16→17:33)
[2018-04-30] MEDS: Phospha 250 Neutral tab ORAL SCH ×3 (08:16→17:33)
[2018-04-30] MEDS: Magnesium Oxide 400mg tab ORAL SCH ×3 (08:17→17:33)
[2018-04-30] MEDS: Ascorbic Acid 500mg tab ORAL SCH (08:17)
[2018-04-30] MEDS: Heparin 5000 units/ml inj SUBQ SCH (08:20)
--- NOTE | 2018-04-30 10:10 | General Progress Note ---
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 SNOMED: 56799813 (2) Dehydration ICD Codes: E86.0 - Dehydration SNOMED: 22916846 (3) Basal cell carcinoma ICD Codes: C44.91 - Basal cell carcinoma of skin, unspecified SNOMED: 005311881 (4) Generalized weakness ICD Codes: R53.1 - Weakness SNOMED: 09795888 (5) Cellulitis and abscess of face ICD Codes: L03.211 - Cellulitis of face; L02.01 - Cutaneous abscess of face SNOMED: 141798836 (6) Severe malnutrition ICD Codes: E43 - Unspecified severe protein-calorie malnutrition SNOMED: 70593402 (7) Failure to thrive in adult ICD Codes: R62.7 - Adult failure to thrive SNOMED: 113188483 (8) Periorbital swelling ICD Codes: H57.8 - Periorbital swelling SNOMED: 658443312 (9) Dysphasia ICD Codes: R47.02 - Dysphasia SNOMED: 56282748 (10) HTN (hypertension) ICD Codes: I10 - Essential (primary) hypertension SNOMED: 28769162 (11) UTI (urinary tract infection) ICD Codes: N39.0 - Urinary tract infection, site not specified SNOMED: 29986883 Status: unchanged Assessment/Plan pt diet abx prn cbc bmp am Subjective Constitutional: Reports: weakness Allergies: Coded Allergies: BENZTROPINE (Unverified Allergy, Unknown, 02/22/14) HALOPERIDOL (Unverified Allergy, Unknown, 02/22/14) PENICILLINS (Unverified Allergy, Unknown, 04/14/18) tolerated Ceftriaxone 06/2017 All Systems: reviewed and negative except above Subjective calm in bed sleepy Objective Last 24 Hour Vital Signs Date Time Temp Pulse Resp B/P (MAP) Pulse Ox O2 Delivery O2 Flow Rate FiO2 04/30/18 08:19 85 123/64 04/30/18 08:00 97.5 79 18 133/74 (93) 96 04/30/18 04:00 97.4 90 20 114/69 (84) 97 04/30/18 00:00 97.9 67 20 97/64 (75) 96 04/29/18 20:00 97.9 95 20 115/86 (96) 96 04/29/18 16:00 97.7 78 19 113/78 (90) 97 04/29/18 12:05 97.0 80 19 118/71 (87) 98 Intake and Output 04/29/18 04/30/18 19:00 07:00 Intake Total 720 ml 360 ml Balance 720 ml 360 ml Intake Oral 720 ml 360 ml Height (Feet): 5 Height (Inches): 10.00 Weight (Pounds): 164 General Appearance: lethargic EENT: normal ENT inspection Neck: normal alignment Cardiovascular: normal peripheral pulses, normal rate, regular rhythm Respiratory/Chest: chest wall non-tender, lungs clear, normal breath sounds Abdomen: normal bowel sounds, non tender, soft Extremities: normal inspection Edema: no edema noted Arm (L), no edema noted Arm (R), no edema noted Leg (L), no edema noted Leg (R), no edema noted Pedal (L), no edema noted Pedal (R), no edema noted Generalized Neurologic: motor weakness Skin: normal pigmentation, warm/dry Julio Higgins DO Apr 30, 2018 10:09
[2018-04-30 12:00] VITALS: BP 105/70
--- NOTE | 2018-04-30 12:06 | NUR ---
PT note Attempted to see patient for PT eval/tx but patient became verbally aggressive, refusing any physical therapy at this time. RN was made aware.
--- NOTE | 2018-04-30 14:17 | Cardiac Electrophysiology PN ---
Assessment/Plan Assessment/Plan 1. sinus tachycardia with heart rate of 120s. Refused ECG. This could be due to anxiety or infection. HR better 80s 2. Hypertension, on Norvasc 5 mg daily. 3. Schizophrenia. 4. Right facial basal cell carcinoma, status post surgery with necrotic skin. 5. Dysphagia, resolved, had EGD, followup with Dr. Ferguson. DW RN Subjective Subjective Refusing meds. Objective Last 24 Hour Vital Signs Date Time Temp Pulse Resp B/P (MAP) Pulse Ox O2 Delivery O2 Flow Rate FiO2 04/30/18 12:00 97.6 78 18 105/70 (82) 98 04/30/18 08:19 85 123/64 04/30/18 08:00 97.5 79 18 133/74 (93) 96 04/30/18 04:00 97.4 90 20 114/69 (84) 97 04/30/18 00:00 97.9 67 20 97/64 (75) 96 04/29/18 20:00 97.9 95 20 115/86 (96) 96 04/29/18 16:00 97.7 78 19 113/78 (90) 97 Intake and Output 04/29/18 04/30/18 19:00 07:00 Intake Total 720 ml 360 ml Balance 720 ml 360 ml Intake Oral 720 ml 360 ml Objective HEAD AND NECK: No JVD. The right side of his face has a scar. LUNGS: Clear CARDIOVASCULAR: RRR. No GRM ABDOMEN: Soft EXTREMITIES: 2+ edema. Teto Branch MD Apr 30, 2018 14:17
--- NOTE | 2018-04-30 15:03 | Nephrology Progress Note ---
Assessment/Plan Problem List: (1) Dehydration (2) HTN (hypertension) (3) Failure to thrive in adult (4) Schizophrenia Assessment WBC jeb (1) Dysphasia (2) Encounter for PEG (percutaneous endoscopic gastrostomy) (3) Schizophrenia (4) Failure to thrive in adult (5) Generalized weakness (6) Severe malnutrition (7) Dehydration (8) Schizophrenia (9) HTN (10) Legally Blind Plan CBC pending- Ua pending CXR pending un coaporative IV out on PO K and Phos Flomax Psych mangement per consultants Subjective ROS Limited/Unobtainable: No Objective Objective Last 24 Hour Vital Signs Date Time Temp Pulse Resp B/P (MAP) Pulse Ox O2 Delivery O2 Flow Rate FiO2 04/30/18 12:00 97.6 78 18 105/70 (82) 98 04/30/18 08:19 85 123/64 04/30/18 08:00 97.5 79 18 133/74 (93) 96 04/30/18 04:00 97.4 90 20 114/69 (84) 97 04/30/18 00:00 97.9 67 20 97/64 (75) 96 04/29/18 20:00 97.9 95 20 115/86 (96) 96 04/29/18 16:00 97.7 78 19 113/78 (90) 97 Intake and Output 04/29/18 04/30/18 19:00 07:00 Intake Total 720 ml 360 ml Balance 720 ml 360 ml Intake Oral 720 ml 360 ml Height (Feet): 5 Height (Inches): 10.00 Weight (Pounds): 164 General Appearance: no apparent distress Respiratory/Chest: lungs clear Abdomen: soft Objective no change Al Roper MD Apr 30, 2018 15:03
--- NOTE | 2018-04-30 15:17 | NUR ---
NURSE NOTES: patient been quiet and calm so far. I had covered the wound on the right face, patient constantly remving it and cussing out. We were able to provide bath and keep him clean. sister/conservator @ bedside. kept bed in the lowest position. call light is within reach. will cont to monitor.
--- NOTE | 2018-04-30 15:36 | General Progress Note ---
Assessment/Plan Assessment/Plan # Leukocytosis. Secondary to underlying infection, sepsis of R eye/hx malignancy that side --> Monitor and trend wbc for improvement -->16.6-->23.0-->31.5-->9.2-->11.2-->22.9 --> Peripheral smear has been reviewed, no blasts noted --> Medications have been reviewed --> Imaging has been reviewed --> has been started on abx, empiric treatment --> per ID management # Anemia of chronic disease --> anemia panel has been reviewed --> trend hgb 12.8-->10.2 # FTT --> refusing care --> defer peg tube given improvement in po intake # Sepsis. 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 # COPD. # Dysphasia # Schizophrenia # HTN. # Legally blind Time and date note entered in EMR does not reflect time and date of encounter. GREATLY APPRECIATE CONSULTATION. Subjective Constitutional: Denies: no symptoms, chills, diaphoresis, fever, malaise, weakness, other Gastrointestinal/Abdominal: Denies: no symptoms, abdomen distended, abdominal pain, black stools, tarry stools, blood in stool, constipated, diarrhea, difficulty swallowing, nausea, poor appetite, poor fluid intake, rectal bleeding , vomiting, other Neurologic/Psychiatric: Denies: no symptoms, anxiety, depressed, emotional problems, headache, numbness, paresthesia, pre-existing deficit, seizure, tingling, tremors, weakness, other Endocrine: Denies: no symptoms, excessive sweating, flushing, intolerance to cold, intolerance to heat, increased hunger, increased thirst, increased urine, unexplained weight gain, unexplained weight loss, other Hematologic/Lymphatic: Denies: no symptoms, anemia, easy bleeding, easy bruising, other Allergies: Coded Allergies: BENZTROPINE (Unverified Allergy, Unknown, 02/22/14) HALOPERIDOL (Unverified Allergy, Unknown, 02/22/14) PENICILLINS (Unverified Allergy, Unknown, 04/14/18) tolerated Ceftriaxone 06/2017 Subjective 04/15: Pt awake and agitated. No acute events. Pt refusing meds. 04/16: wbc severely elevated, seen by Id, on broad spectrum antifungals, foul language, very aggressive 04/18: no events, mumbling, minimally conversive, no fevers, down on ivf 04/19: pt is awake and resting in bed. refusing care, aggressive, no events 04/20: Pt is awake and alert, refusing care, minimally conversive, on abx, wbc have improved. 04/21: Pt is awake and resting in bed, aggressive, mumbling, 04/22: Pt is resting in bed. PEG has been defered, the patient has shown improvement in caloric intake and shows no signs of dysphagia or risk for aspiration. 04/23: Pt is seen in the room, resting in bed, refusing care, on abx, pending labs /: No events, has been agitated overnight, refusing care 04/25: Pt is awake and resting in bed, refusing labs, agitated, screaming, refusing care 04/26: no major events, no fevers or chills, no chest pain or sob 04/27: pt is seen by bedside, awake and comfortable, wbc is at 22.9 today. 04/28: peg has been deferred, gi recs reviewed, no events, slightly agitated 04/29: no events, refusing care, no change other, remains aggressive, says "don' t touch me" 04/30: continues to cuss out, rn by bedside with conservator and able to chnage wound on eye R Objective Last 24 Hour Vital Signs Date Time Temp Pulse Resp B/P (MAP) Pulse Ox O2 Delivery O2 Flow Rate FiO2 04/30/18 12:00 97.6 78 18 105/70 (82) 98 04/30/18 08:19 85 123/64 04/30/18 08:00 97.5 79 18 133/74 (93) 96 04/30/18 04:00 97.4 90 20 114/69 (84) 97 04/30/18 00:00 97.9 67 20 97/64 (75) 96 04/29/18 20:00 97.9 95 20 115/86 (96) 96 04/29/18 16:00 97.7 78 19 113/78 (90) 97 Intake and Output 1/12/19 1/13/19 19:00 07:00 Intake Total 720 ml 360 ml Balance 720 ml 360 ml Intake Oral 720 ml 360 ml Height (Feet): 5 Height (Inches): 10.00 Weight (Pounds): 164 Objective Vitals: Have been reviewed General Appearance: alert, agitated Head: normocephalic, atraumatic Eyes: right eye abnormal pupil - right eye has patch which covers the right temporal area of face as well from cancer ressection; left eye other - visible cataract, glassy/hazy appearance, unchanged ENT: hearing grossly normal, other Neck: full range of motion Respiratory: chest non-tender, lungs clear Cardiovascular no edema, tachycardia Gastrointestinal: normal bs, non tender, soft MSK: back normal, non-tender, bilateral hand contractures Skin: normal color, no rash, warm/dry Jr Daly MD Apr 30, 2018 15:36
[2018-04-30 16:00] VITALS: BP 108/63
--- NOTE | 2018-04-30 17:15 | NUR ---
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
--- NOTE | 2018-04-30 19:10 | NUR ---
NURSE NOTES: Received a report from FARHEEN Pressley. Pt is in stable condition. Sleeping comfortably. No respiratory distress noted. On room air. No c/o pain/discomfort. No IV access, doctors are aware. Bed in lowest position. Bed alarm is on. Call light within reach. Will continue to monitor.
--- NOTE | 2018-04-30 19:18 | NUR ---
HAND-OFF: Report given to Loni
--- NOTE | 2018-04-30 20:00 | NUR ---
NURSE NOTES: Pt refused 2000 V/S.
--- NOTE | 2018-04-30 22:00 | NUR ---
NURSE NOTES: Pt refused skin assessment.
--- NOTE | 2018-05-01 | NUR ---
NURSE NOTES: Pt refused 0000 V/S.
[2018-05-01] MEDS: Heparin 5000 units/ml inj SUBQ SCH ×3 (00:29→21:00)
[2018-05-01] MEDS: Tamsulosin 0.4mg cap ORAL SCH ×2 (00:29→21:25)
[2018-05-01 04:00] VITALS: BP 112/73
--- NOTE | 2018-05-01 07:35 | NUR ---
HAND-OFF: Report given to Rosy Mendez RN.
--- NOTE | 2018-05-01 08:09 | NUR ---
NURSE NOTES: Patient received resting in bed, breathing unlabored on room air. Patient is alert x1 with garbled speech. Bilateral blindness. No s/s of respiratory distress or pain observed at this time. No IV access. Bed locked in lowest position, with HOB elevated. Call light within reach, will continue to monitor.
[2018-05-01 08:16] LABS: HEMATOCRIT 33.1 % (42.0-52.0); HEMOGLOBIN 10.8 G/DL (14.2-18.0); MEAN CORPUSCULAR VOLUME 91 FL (80-99); PLATELET COUNT 519 K/UL (150-450); RED BLOOD COUNT 3.64 M/UL (4.70-6.10); RED CELL DISTRIBUTION WIDTH 15.5 % (11.6-14.8); WHITE BLOOD COUNT 10.5 K/UL (4.8-10.8)
[2018-05-01 08:48] LABS: ANION GAP 7 mmol/L (5-15); BLOOD UREA NITROGEN 15 mg/dL (7-18); CALCIUM 9.4 MG/DL (8.5-10.1); CARBON DIOXIDE 29 MMOL/L (21-32); CHLORIDE 103 MMOL/L (98-107); POTASSIUM 4.1 MMOL/L (3.5-5.1); SODIUM 139 MMOL/L (136-145)
[2018-05-01] MEDS: Phospha 250 Neutral tab ORAL SCH ×3 (09:00→17:20)
[2018-05-01] MEDS: OLANZapine 10mg tab ORAL SCH ×3 (09:20→17:20)
[2018-05-01] MEDS: LORazepam 1mg tab ORAL SCH (09:20)
[2018-05-01] MEDS: Ascorbic Acid 500mg tab ORAL SCH (09:20)
[2018-05-01] MEDS: Aspirin Baby 81mg ORAL SCH (09:20)
[2018-05-01] MEDS: Magnesium Oxide 400mg tab ORAL SCH ×3 (09:21→17:20)
--- NOTE | 2018-05-01 10:20 | Infectious Diseases Prog Note ---
Assessment/Plan Assessment/Plan Sepsis- ?source- r/o UTI, PNA- now resolved Afebrile Leukocytosis Increased 04/27/18 , now resolved -CXR 04/28: No acute findings Unclear source no sign of active infection resection of carcinoma from right side of face/eye Wnd Cx : GPC -hx of superinfected necrotic mass and possible micro abscess s/p Tx 06/2017 -wound cx MRSA, diphterouids, ESBL Proteus 04/14/19 Wound Cx Providencia and MRSA FTT COPD dysphasia schizophrenia HTN MDD legally blind hx of VRE/MRSA colonization Plan: - Monitor off abx -Pt was refusing labs and antibiotics; today leukocytosis resolved. - 04/24/18 SP PO Bactrim DS BID - 04/20/18 SP empiric Azactam , Flagyl and IV Vanco d# 6/10 - 04/15/18 SP Ceftriaxone d# 2 -Monitor CBC/CMP, temperatures Subjective Allergies: Coded Allergies: BENZTROPINE (Unverified Allergy, Unknown, 02/22/14) HALOPERIDOL (Unverified Allergy, Unknown, 02/22/14) PENICILLINS (Unverified Allergy, Unknown, 04/14/18) tolerated Ceftriaxone 06/2017 Subjective afebrile off abx leukocytosis resolved Objective Vital Signs Last 24 Hour Vital Signs Date Time Temp Pulse Resp B/P (MAP) Pulse Ox O2 Delivery O2 Flow Rate FiO2 05/01/18 09:20 87 112/73 05/01/18 04:00 98.2 87 18 112/73 (86) 95 04/30/18 16:00 97.5 104 18 108/63 (78) 95 04/30/18 12:00 97.6 78 18 105/70 (82) 98 Height (Feet): 5 Height (Inches): 10.00 Weight (Pounds): 164 Objective General: NAD, irritable HEENT: NCAT, right eye with large ulcer no surrounding erythema or purulence but scar and some necrotic tissue present, left eye - visible cataract, glassy/ hazy appearance Respiratory: CATB, No W/C Cardiovascular no edema, tachycardia Gastrointestinal: normal bowel sounds, non tender, soft Laboratory Tests Test 05/01/18 06:35 White Blood Count 10.5 K/UL (4.8-10.8) Red Blood Count 3.64 M/UL (4.70-6.10) L Hemoglobin 10.8 G/DL (14.2-18.0) L Hematocrit 33.1 % (42.0-52.0) L Mean Corpuscular Volume 91 FL (80-99) Mean Corpuscular Hemoglobin 29.6 PG (27.0-31.0) Mean Corpuscular Hemoglobin Concent 32.6 G/DL (32.0-36.0) Red Cell Distribution Width 15.5 % (11.6-14.8) H Platelet Count 519 K/UL (150-450) H Mean Platelet Volume 5.1 FL (6.5-10.1) L Neutrophils (%) (Auto) % (45.0-75.0) Lymphocytes (%) (Auto) % (20.0-45.0) Monocytes (%) (Auto) % (1.0-10.0) Eosinophils (%) (Auto) % (0.0-3.0) Basophils (%) (Auto) % (0.0-2.0) Neutrophils % (Manual) Pending Lymphocytes % (Manual) Pending Platelet Estimate Pending Platelet Morphology Pending Sodium Level 139 MMOL/L (136-145) Potassium Level 4.1 MMOL/L (3.5-5.1) Chloride Level 103 MMOL/L (98-107) Carbon Dioxide Level 29 MMOL/L (21-32) Anion Gap 7 mmol/L (5-15) Blood Urea Nitrogen 15 mg/dL (7-18) Creatinine 1.0 MG/DL (0.55-1.30) Estimat Glomerular Filtration Rate > 60 mL/min (>60) Glucose Level 87 MG/DL (74-106) Calcium Level 9.4 MG/DL (8.5-10.1) Current Medications Medications (Trade) Dose Ordered Sig/Jordi Route PRN Reason Start Time Stop Time Status Last Admin Dose Admin Amlodipine Besylate (Norvasc) 5 mg DAILY ORAL 04/14/18 09:00 05/14/18 08:59 05/01/18 09:20 Ascorbic Acid (Vitamin C) 500 mg DAILY ORAL 04/14/18 09:00 05/14/18 08:59 05/01/18 09:20 Aspirin (ASA) 81 mg DAILY ORAL 04/14/18 09:00 05/14/18 08:59 05/01/18 09:20 Famotidine (Pepcid) 20 mg BID ORAL 04/18/18 18:00 05/18/18 17:59 05/01/18 09:20 Heparin Sodium (Porcine) (Heparin 5000 units/ml) 5,000 units EVERY 12 HOURS SUBQ 04/14/18 09:00 05/14/18 08:59 05/01/18 00:29 Lorazepam (Ativan) 1 mg Q6H PRN ORAL For Anxiety 04/25/18 15:00 05/02/18 14:59 Lorazepam (Ativan) 2 mg BID ORAL 04/24/18 18:00 05/01/18 17:59 05/01/18 09:20 Magnesium Oxide (Mag-Ox 400mg) 400 mg THREE TIMES A DAY ORAL 04/20/18 13:00 05/20/18 12:59 05/01/18 09:21 Multivitamins (Multivitamins) 1 tab DAILY ORAL 04/14/18 09:00 05/14/18 08:59 05/01/18 09:20 Olanzapine (ZyPREXA) 10 mg TID ORAL 04/25/18 18:00 05/25/18 17:59 05/01/18 09:20 Phosphorus (Phospha 250 Neutral) 500 mg THREE TIMES A DAY ORAL 04/20/18 13:00 05/20/18 12:59 04/30/18 17:33 Quetiapine Fumarate (SEROquel) 150 mg EVERY 8 HOURS ORAL 04/21/18 06:00 05/21/18 05:59 05/01/18 05:54 Tamsulosin HCl (Flomax) 0.4 mg BEDTIME ORAL 04/16/18 21:00 05/16/18 20:59 05/01/18 00:29 Carmella Spring M.D. May 01, 2018 10:20
--- NOTE | 2018-05-01 11:36 | Nephrology Progress Note ---
Assessment/Plan Problem List: (1) Dehydration (2) HTN (hypertension) (3) Failure to thrive in adult (4) Schizophrenia Assessment WBC now wnl (1) Dysphasia (2) Encounter for PEG (percutaneous endoscopic gastrostomy) (3) Schizophrenia (4) Failure to thrive in adult (5) Generalized weakness (6) Severe malnutrition (7) Dehydration (8) Schizophrenia (9) HTN (10) Legally Blind Plan Flomax Psych mangement per consultants ? DC planning Subjective ROS Limited/Unobtainable: No Objective Objective Last 24 Hour Vital Signs Date Time Temp Pulse Resp B/P (MAP) Pulse Ox O2 Delivery O2 Flow Rate FiO2 05/01/18 09:20 87 112/73 05/01/18 04:00 98.2 87 18 112/73 (86) 95 04/30/18 16:00 97.5 104 18 108/63 (78) 95 04/30/18 12:00 97.6 78 18 105/70 (82) 98 Intake and Output 04/30/18 05/01/18 19:00 07:00 Intake Total 1440 ml 400 ml Balance 1440 ml 400 ml Intake Oral 1440 ml 400 ml Current Medications Medications (Trade) Dose Ordered Sig/Jordi Route PRN Reason Start Time Stop Time Status Last Admin Dose Admin Amlodipine Besylate (Norvasc) 5 mg DAILY ORAL 04/14/18 09:00 05/14/18 08:59 05/01/18 09:20 Ascorbic Acid (Vitamin C) 500 mg DAILY ORAL 04/14/18 09:00 05/14/18 08:59 05/01/18 09:20 Aspirin (ASA) 81 mg DAILY ORAL 04/14/18 09:00 05/14/18 08:59 05/01/18 09:20 Famotidine (Pepcid) 20 mg BID ORAL 04/18/18 18:00 05/18/18 17:59 05/01/18 09:20 Heparin Sodium (Porcine) (Heparin 5000 units/ml) 5,000 units EVERY 12 HOURS SUBQ 04/14/18 09:00 05/14/18 08:59 05/01/18 00:29 Lorazepam (Ativan) 1 mg Q6H PRN ORAL For Anxiety 04/25/18 15:00 05/02/18 14:59 Lorazepam (Ativan) 2 mg BID ORAL 04/24/18 18:00 05/01/18 17:59 05/01/18 09:20 Magnesium Oxide (Mag-Ox 400mg) 400 mg THREE TIMES A DAY ORAL 04/20/18 13:00 05/20/18 12:59 05/01/18 09:21 Multivitamins (Multivitamins) 1 tab DAILY ORAL 04/14/18 09:00 05/14/18 08:59 05/01/18 09:20 Olanzapine (ZyPREXA) 10 mg TID ORAL 04/25/18 18:00 05/25/18 17:59 05/01/18 09:20 Phosphorus (Phospha 250 Neutral) 500 mg THREE TIMES A DAY ORAL 04/20/18 13:00 05/20/18 12:59 04/30/18 17:33 Quetiapine Fumarate (SEROquel) 150 mg EVERY 8 HOURS ORAL 04/21/18 06:00 05/21/18 05:59 05/01/18 05:54 Tamsulosin HCl (Flomax) 0.4 mg BEDTIME ORAL 04/16/18 21:00 05/16/18 20:59 05/01/18 00:29 Laboratory Tests 05/01/18 06:35: White Blood Count 10.5, Red Blood Count 3.64L, Hemoglobin 10.8L, Hematocrit 33.1L, Mean Corpuscular Volume 91, Mean Corpuscular Hemoglobin 29.6, Mean Corpuscular Hemoglobin Concent 32.6, Red Cell Distribution Width 15.5H, Platelet Count 519H, Mean Platelet Volume 5.1L, Neutrophils (%) (Auto) , Lymphocytes (%) (Auto) , Monocytes (%) (Auto) , Eosinophils (%) (Auto) , Basophils (%) (Auto) , Neutrophils % (Manual) [Pending], Lymphocytes % (Manual) [Pending], Platelet Estimate [Pending], Platelet Morphology [Pending], Sodium Level 139, Potassium Level 4.1, Chloride Level 103, Carbon Dioxide Level 29, Anion Gap 7, Blood Urea Nitrogen 15, Creatinine 1.0, Estimat Glomerular Filtration Rate > 60, Glucose Level 87, Calcium Level 9.4 Height (Feet): 5 Height (Inches): 10.00 Weight (Pounds): 164 General Appearance: no apparent distress, confused Objective no change Al Roper MD 14, 2019 11:36
[2018-05-01 12:00] VITALS: BP 122/66
--- NOTE | 2018-05-01 12:36 | GI Progress Note ---
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 Ferguson. Assessment/Plan psych f/u defer PEG, the patient has shown improvement in caloric intake and shows no signs of dysphagia or risk for aspiration. Patient on regular diet push p.o. One-to-one feeder IV/p.o. hydration Antibiotics PPI Follow-up labs The patient was seen and examined at bedside and all new and available data was reviewed in the patients chart. I agree with the above findings, impression and plan. (Patient seen earlier today. Signature stamp does not reflect patient encounter time.). - Juliocesar Ferguson MD Subjective Subjective Limited Objective Last 24 Hour Vital Signs Date Time Temp Pulse Resp B/P (MAP) Pulse Ox O2 Delivery O2 Flow Rate FiO2 05/01/18 09:20 87 112/73 05/01/18 04:00 98.2 87 18 112/73 (86) 95 04/30/18 16:00 97.5 104 18 108/63 (78) 95 Intake and Output 04/30/18 05/01/18 19:00 07:00 Intake Total 1440 ml 400 ml Balance 1440 ml 400 ml Intake Oral 1440 ml 400 ml Laboratory Tests Test 05/01/18 06:35 White Blood Count 10.5 K/UL (4.8-10.8) Red Blood Count 3.64 M/UL (4.70-6.10) L Hemoglobin 10.8 G/DL (14.2-18.0) L Hematocrit 33.1 % (42.0-52.0) L Mean Corpuscular Volume 91 FL (80-99) Mean Corpuscular Hemoglobin 29.6 PG (27.0-31.0) Mean Corpuscular Hemoglobin Concent 32.6 G/DL (32.0-36.0) Red Cell Distribution Width 15.5 % (11.6-14.8) H Platelet Count 519 K/UL (150-450) H Mean Platelet Volume 5.1 FL (6.5-10.1) L Neutrophils (%) (Auto) % (45.0-75.0) Lymphocytes (%) (Auto) % (20.0-45.0) Monocytes (%) (Auto) % (1.0-10.0) Eosinophils (%) (Auto) % (0.0-3.0) Basophils (%) (Auto) % (0.0-2.0) Differential Total Cells Counted 100 Neutrophils % (Manual) 38 % (45-75) L Lymphocytes % (Manual) 52 % (20-45) H Monocytes % (Manual) 5 % (1-10) Eosinophils % (Manual) 3 % (0-3) Basophils % (Manual) 2 % (0-2) Band Neutrophils 0 % (0-8) Platelet Estimate Increased H Platelet Morphology Normal Sodium Level 139 MMOL/L (136-145) Potassium Level 4.1 MMOL/L (3.5-5.1) Chloride Level 103 MMOL/L (98-107) Carbon Dioxide Level 29 MMOL/L (21-32) Anion Gap 7 mmol/L (5-15) Blood Urea Nitrogen 15 mg/dL (7-18) Creatinine 1.0 MG/DL (0.55-1.30) Estimat Glomerular Filtration Rate > 60 mL/min (>60) Glucose Level 87 MG/DL (74-106) Calcium Level 9.4 MG/DL (8.5-10.1) Height (Feet): 5 Height (Inches): 10.00 Weight (Pounds): 164 General Appearance: WD/WN, no apparent distress, alert Cardiovascular: normal rate Respiratory/Chest: normal breath sounds, no respiratory distress Abdominal Exam: normal bowel sounds, non tender, soft Extremities: non-tender Objective Legally blind Roxanna Saavedra NP May 01, 2018 12:36
--- NOTE | 2018-05-01 14:05 | General Progress Note ---
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 SNOMED: 30638490 (2) Dehydration ICD Codes: E86.0 - Dehydration SNOMED: 12279878 (3) Basal cell carcinoma ICD Codes: C44.91 - Basal cell carcinoma of skin, unspecified SNOMED: 349970867 (4) Generalized weakness ICD Codes: R53.1 - Weakness SNOMED: 49063419 (5) Cellulitis and abscess of face ICD Codes: L03.211 - Cellulitis of face; L02.01 - Cutaneous abscess of face SNOMED: 639300121 (6) Severe malnutrition ICD Codes: E43 - Unspecified severe protein-calorie malnutrition SNOMED: 02930703 (7) Failure to thrive in adult ICD Codes: R62.7 - Adult failure to thrive SNOMED: 424072514 (8) Periorbital swelling ICD Codes: H57.8 - Periorbital swelling SNOMED: 633868250 (9) Dysphasia ICD Codes: R47.02 - Dysphasia SNOMED: 85653714 (10) HTN (hypertension) ICD Codes: I10 - Essential (primary) hypertension SNOMED: 16175477 (11) UTI (urinary tract infection) ICD Codes: N39.0 - Urinary tract infection, site not specified SNOMED: 19021319 Status: stable, progressing Assessment/Plan pt diet abx prn cbc bmp am dc plan Subjective Constitutional: Reports: weakness Allergies: Coded Allergies: BENZTROPINE (Unverified Allergy, Unknown, 02/22/14) HALOPERIDOL (Unverified Allergy, Unknown, 02/22/14) PENICILLINS (Unverified Allergy, Unknown, 04/14/18) tolerated Ceftriaxone 06/2017 All Systems: reviewed and negative except above Subjective calm in bed sleepy Objective Last 24 Hour Vital Signs Date Time Temp Pulse Resp B/P (MAP) Pulse Ox O2 Delivery O2 Flow Rate FiO2 05/01/18 09:20 87 112/73 05/01/18 04:00 98.2 87 18 112/73 (86) 95 04/30/18 16:00 97.5 104 18 108/63 (78) 95 Intake and Output 04/30/18 05/01/18 19:00 07:00 Intake Total 1440 ml 400 ml Balance 1440 ml 400 ml Intake Oral 1440 ml 400 ml Laboratory Tests 05/01/18 06:35: White Blood Count 10.5, Red Blood Count 3.64L, Hemoglobin 10.8L, Hematocrit 33.1L, Mean Corpuscular Volume 91, Mean Corpuscular Hemoglobin 29.6, Mean Corpuscular Hemoglobin Concent 32.6, Red Cell Distribution Width 15.5H, Platelet Count 519H, Mean Platelet Volume 5.1L, Neutrophils (%) (Auto) , Lymphocytes (%) (Auto) , Monocytes (%) (Auto) , Eosinophils (%) (Auto) , Basophils (%) (Auto) , Differential Total Cells Counted 100, Neutrophils % ( Manual) 38L, Lymphocytes % (Manual) 52H, Monocytes % (Manual) 5, Eosinophils % ( Manual) 3, Basophils % (Manual) 2, Band Neutrophils 0, Platelet Estimate IncreasedH, Platelet Morphology Normal, Sodium Level 139, Potassium Level 4.1, Chloride Level 103, Carbon Dioxide Level 29, Anion Gap 7, Blood Urea Nitrogen 15 , Creatinine 1.0, Estimat Glomerular Filtration Rate > 60, Glucose Level 87, Calcium Level 9.4 Height (Feet): 5 Height (Inches): 10.00 Weight (Pounds): 164 General Appearance: lethargic EENT: normal ENT inspection Neck: normal alignment Cardiovascular: normal peripheral pulses, normal rate, regular rhythm Respiratory/Chest: chest wall non-tender, lungs clear, normal breath sounds Abdomen: normal bowel sounds, non tender, soft Extremities: normal inspection Edema: no edema noted Arm (L), no edema noted Arm (R), no edema noted Leg (L), no edema noted Leg (R), no edema noted Pedal (L), no edema noted Pedal (R), no edema noted Generalized Neurologic: motor weakness Skin: normal pigmentation, warm/dry Julio Higgins DO May 01, 2018 14:05
--- NOTE | 2018-05-01 14:48 | General Progress Note ---
Assessment/Plan Assessment/Plan # Leukocytosis. Secondary to underlying infection, sepsis of R eye/hx malignancy that side --> Monitor and trend wbc for improvement -->16.6-->23.0-->31.5-->9.2-->11.2-->22.9-->10 --> Peripheral smear has been reviewed, no blasts noted --> Medications have been reviewed --> Imaging has been reviewed --> has been started on abx, empiric treatment --> per ID management # Anemia of chronic disease --> anemia panel has been reviewed --> trend hgb 12.8-->10.2-->10 # FTT --> refusing care --> defer peg tube given improvement in po intake # Sepsis. 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 # COPD. # Dysphasia # Schizophrenia # HTN. # Legally blind Time and date note entered in EMR does not reflect time and date of encounter. GREATLY APPRECIATE CONSULTATION. Subjective ROS Limited/Unobtainable: No Constitutional: Denies: no symptoms, chills, diaphoresis, fever, malaise, weakness, other HEENT: Denies: no symptoms, eye pain, blurred vision, tearing, double vision, ear pain, ear discharge, nose pain, nose congestion, throat pain, throat swelling, mouth pain, mouth swelling, other Cardiovascular: Denies: no symptoms, chest pain, edema, irregular heart rate, lightheadedness, palpitations, syncope, other Respiratory: Denies: no symptoms, cough, orthopnea, shortness of breath, SOB with excertion, SOB at rest, sputum, stridor, wheezing, other Gastrointestinal/Abdominal: Denies: no symptoms, abdomen distended, abdominal pain, black stools, tarry stools, blood in stool, constipated, diarrhea, difficulty swallowing, nausea, poor appetite, poor fluid intake, rectal bleeding , vomiting, other Genitourinary: Denies: no symptoms, burning, discharge, frequency, flank pain, hematuria, incontinence, pain, urgency, other Neurologic/Psychiatric: Denies: no symptoms, anxiety, depressed, emotional problems, headache, numbness, paresthesia, pre-existing deficit, seizure, tingling, tremors, weakness, other Endocrine: Denies: no symptoms, excessive sweating, flushing, intolerance to cold, intolerance to heat, increased hunger, increased thirst, increased urine, unexplained weight gain, unexplained weight loss, other Hematologic/Lymphatic: Denies: no symptoms, anemia, easy bleeding, easy bruising, other Allergies: Coded Allergies: BENZTROPINE (Unverified Allergy, Unknown, 02/22/14) HALOPERIDOL (Unverified Allergy, Unknown, 02/22/14) PENICILLINS (Unverified Allergy, Unknown, 04/14/18) tolerated Ceftriaxone 06/2017 Subjective 04/15: Pt awake and agitated. No acute events. Pt refusing meds. 04/16: wbc severely elevated, seen by Id, on broad spectrum antifungals, foul language, very aggressive 04/18: no events, mumbling, minimally conversive, no fevers, down on ivf 04/19: pt is awake and resting in bed. refusing care, aggressive, no events 04/20: Pt is awake and alert, refusing care, minimally conversive, on abx, wbc have improved. 04/21: Pt is awake and resting in bed, aggressive, mumbling, 04/22: Pt is resting in bed. PEG has been defered, the patient has shown improvement in caloric intake and shows no signs of dysphagia or risk for aspiration. 04/23: Pt is seen in the room, resting in bed, refusing care, on abx, pending labs 17/: No events, has been agitated overnight, refusing care 04/25: Pt is awake and resting in bed, refusing labs, agitated, screaming, refusing care 04/26: no major events, no fevers or chills, no chest pain or sob 04/27: pt is seen by bedside, awake and comfortable, wbc is at 22.9 today. 04/28: peg has been deferred, gi recs reviewed, no events, slightly agitated 04/29: no events, refusing care, no change other, remains aggressive, says "don' t touch me" 04/30: continues to cuss out, rn by bedside with conservator and able to chnage wound on eye R 05/01: Pt is awake and calm, alert oriented x1, remains afebrile off abx and leukocytosis resolved Objective Last 24 Hour Vital Signs Date Time Temp Pulse Resp B/P (MAP) Pulse Ox O2 Delivery O2 Flow Rate FiO2 05/01/18 09:20 87 112/73 05/01/18 04:00 98.2 87 18 112/73 (86) 95 04/30/18 16:00 97.5 104 18 108/63 (78) 95 Intake and Output 04/30/18 05/01/18 19:00 07:00 Intake Total 1440 ml 400 ml Balance 1440 ml 400 ml Intake Oral 1440 ml 400 ml Laboratory Tests 05/01/18 06:35: White Blood Count 10.5, Red Blood Count 3.64L, Hemoglobin 10.8L, Hematocrit 33.1L, Mean Corpuscular Volume 91, Mean Corpuscular Hemoglobin 29.6, Mean Corpuscular Hemoglobin Concent 32.6, Red Cell Distribution Width 15.5H, Platelet Count 519H, Mean Platelet Volume 5.1L, Neutrophils (%) (Auto) , Lymphocytes (%) (Auto) , Monocytes (%) (Auto) , Eosinophils (%) (Auto) , Basophils (%) (Auto) , Differential Total Cells Counted 100, Neutrophils % ( Manual) 38L, Lymphocytes % (Manual) 52H, Monocytes % (Manual) 5, Eosinophils % ( Manual) 3, Basophils % (Manual) 2, Band Neutrophils 0, Platelet Estimate IncreasedH, Platelet Morphology Normal, Sodium Level 139, Potassium Level 4.1, Chloride Level 103, Carbon Dioxide Level 29, Anion Gap 7, Blood Urea Nitrogen 15 , Creatinine 1.0, Estimat Glomerular Filtration Rate > 60, Glucose Level 87, Calcium Level 9.4 Height (Feet): 5 Height (Inches): 10.00 Weight (Pounds): 164 Objective Vitals: Have been reviewed General Appearance: alert, agitated Head: normocephalic, atraumatic Eyes: right eye abnormal pupil - right eye has patch which covers the right temporal area of face as well from cancer ressection; left eye other - visible cataract, glassy/hazy appearance, unchanged ENT: hearing grossly normal, other Neck: full range of motion Respiratory: chest non-tender, lungs clear Cardiovascular no edema, tachycardia Gastrointestinal: normal bs, non tender, soft MSK: back normal, non-tender, bilateral hand contractures Skin: normal color, no rash, warm/dry Jr Daly MD May 01, 2018 14:48
--- NOTE | 2018-05-01 15:21 | NUR ---
DISCHARGE PLANNING PATIENT HAS BEEN REFERRED TO: [facility] P:[phone] F;[phone]
[2018-05-01 16:00] VITALS: BP 128/67
--- NOTE | 2018-05-01 16:03 | NUR ---
P.T NOTE: P.T EVALUATION REATTEMPTED HOWEVER UNSUCCESSFUL PATIENT UNCOOPERATIVE AND BELLIGERENTLY REFUSED P.T. PATIENT STATED " DON'T YOU DARE TOUCHING ME, GET THE HELL OUT OF MY ROOM". PATIENT HAS BEEN REFUSING FOR THE PAST FEW DAYS SINCE P.T EVALUATION WAS ORDERED DESPITE SEVERAL ATTEMPTS MADE. WILL D/C P.T EVALUATION DUE TO NON COMPLIANCE.
--- NOTE | 2018-05-01 16:13 | Cardiac Electrophysiology PN ---
Assessment/Plan Assessment/Plan 1. Sinus tachycardia. Refused ECG. This could be due to anxiety or infection. HR better 80s 2. Hypertension, on Norvasc 5 mg daily. 3. Schizophrenia. 4. Right facial basal cell carcinoma, status post surgery with necrotic skin. 5. Dysphagia, resolved, followup with Dr. Ferguson. RONNIE RN Subjective Subjective No events. Awaiting transfer. Objective Last 24 Hour Vital Signs Date Time Temp Pulse Resp B/P (MAP) Pulse Ox O2 Delivery O2 Flow Rate FiO2 05/01/18 12:00 97.2 67 18 122/66 (84) 93 05/01/18 09:20 87 112/73 05/01/18 04:00 98.2 87 18 112/73 (86) 95 Intake and Output 04/30/18 05/01/18 19:00 07:00 Intake Total 1440 ml 400 ml Balance 1440 ml 400 ml Intake Oral 1440 ml 400 ml Laboratory Tests Test 05/01/18 06:35 White Blood Count 10.5 K/UL (4.8-10.8) Red Blood Count 3.64 M/UL (4.70-6.10) L Hemoglobin 10.8 G/DL (14.2-18.0) L Hematocrit 33.1 % (42.0-52.0) L Mean Corpuscular Volume 91 FL (80-99) Mean Corpuscular Hemoglobin 29.6 PG (27.0-31.0) Mean Corpuscular Hemoglobin Concent 32.6 G/DL (32.0-36.0) Red Cell Distribution Width 15.5 % (11.6-14.8) H Platelet Count 519 K/UL (150-450) H Mean Platelet Volume 5.1 FL (6.5-10.1) L Neutrophils (%) (Auto) % (45.0-75.0) Lymphocytes (%) (Auto) % (20.0-45.0) Monocytes (%) (Auto) % (1.0-10.0) Eosinophils (%) (Auto) % (0.0-3.0) Basophils (%) (Auto) % (0.0-2.0) Differential Total Cells Counted 100 Neutrophils % (Manual) 38 % (45-75) L Lymphocytes % (Manual) 52 % (20-45) H Monocytes % (Manual) 5 % (1-10) Eosinophils % (Manual) 3 % (0-3) Basophils % (Manual) 2 % (0-2) Band Neutrophils 0 % (0-8) Platelet Estimate Increased H Platelet Morphology Normal Sodium Level 139 MMOL/L (136-145) Potassium Level 4.1 MMOL/L (3.5-5.1) Chloride Level 103 MMOL/L (98-107) Carbon Dioxide Level 29 MMOL/L (21-32) Anion Gap 7 mmol/L (5-15) Blood Urea Nitrogen 15 mg/dL (7-18) Creatinine 1.0 MG/DL (0.55-1.30) Estimat Glomerular Filtration Rate > 60 mL/min (>60) Glucose Level 87 MG/DL (74-106) Calcium Level 9.4 MG/DL (8.5-10.1) Objective HEAD AND NECK: No JVD. The right side of his face has a scar. LUNGS: Clear CARDIOVASCULAR: RRR. No GRM ABDOMEN: Soft EXTREMITIES: 1+ edema. Teto Branch MD May 01, 2018 16:13
--- NOTE | 2018-05-01 19:00 | NUR ---
NURSE NOTES: Received a report from Rosy Mendez RN. Pt is in stable condition. Sleeping comfortably. No respiratory distress noted. On room air. No c/o pain/discomfort. No IV access, doctors are aware. Bed in lowest position. Bed alarm is on. Call light within reach. Will continue to monitor.
--- NOTE | 2018-05-01 19:29 | NUR ---
HAND-OFF: Report given to Shaw OCONNELL.
[2018-05-01 20:00] VITALS: BP 125/76
--- NOTE | 2018-05-01 21:00 | NUR ---
NURSE NOTES: Pt refused Heparin, despite education provided.
[2018-05-01 23:39] VITALS: BP 121/71
--- NOTE | 2018-05-02 | NUR ---
NURSE NOTES: Cleaned the pt, but cannot fully assess the skin due to non-compliance. He is verbally aggressive, and tried to spit at the staff.
[2018-05-02 04:00] VITALS: BP 127/74
--- NOTE | 2018-05-02 07:15 | NUR ---
HAND-OFF: Report given to Brandon Jaimes RN. Pt is in stable condition.
--- NOTE | 2018-05-02 07:35 | NUR ---
Received patient from [facility] [place].Patient is sleeping in bed. Patient in room air. Patient is not in respiratory distress. Bed in the lowest position. Call light is within reach. Will continue to monitor patient.
--- NOTE | 2018-05-02 07:39 | NUR ---
NURSE NOTES: Received patient from Loni OCONNELL, patient is resting in bed, no distress noted, bed is locked and in lowest position, call light within reach, will continue to monitor patient with Clementine OCONNELL. Addendum: 05/02/18 at 0748 by Clementine Schwab RN NURSE NOTES: Received patient from ANISH [facility]. Patient is sleeping in bed. Patient is not in respiratory distress. Bed is in the lowest position. Call light is within reach. Will continue monitoring patient.
[2018-05-02 08:00] VITALS: BP 124/79
[2018-05-02] MEDS: Heparin 5000 units/ml inj SUBQ SCH ×2 (09:00→20:34)
[2018-05-02] MEDS: Ascorbic Acid 500mg tab ORAL SCH (09:02)
[2018-05-02] MEDS: Magnesium Oxide 400mg tab ORAL SCH ×4 (09:02→17:47)
[2018-05-02] MEDS: Aspirin Baby 81mg ORAL SCH (09:02)
[2018-05-02] MEDS: Phospha 250 Neutral tab ORAL SCH ×4 (09:02→17:48)
[2018-05-02] MEDS: OLANZapine 10mg tab ORAL SCH ×4 (09:09→17:48)
--- NOTE | 2018-05-02 10:43 | Cardiac Electrophysiology PN ---
Assessment/Plan Assessment/Plan 1. Sinus tachycardia. Refused ECG. Likely due to anxiety or infection. HR better 80s 2. Hypertension, on Norvasc 5 mg daily. 3. Schizophrenia. 4. Right facial basal cell carcinoma, status post surgery with necrotic skin. 5. Dysphagia, resolved, followup with Dr. Ferguson. RONNIE RN Subjective Subjective No events.DC in progress. Objective Last 24 Hour Vital Signs Date Time Temp Pulse Resp B/P (MAP) Pulse Ox O2 Delivery O2 Flow Rate FiO2 05/02/18 09:03 75 124/79 05/02/18 08:00 97.7 75 20 124/79 (94) 98 05/02/18 04:00 98.5 71 20 127/74 (91) 98 05/01/18 23:39 98.3 69 18 121/71 (88) 98 05/01/18 20:00 98.1 67 18 125/76 (92) 96 05/01/18 16:00 97.7 69 18 128/67 (87) 95 05/01/18 12:00 97.2 67 18 122/66 (84) 93 Intake and Output 05/01/18 05/02/18 19:00 07:00 Intake Total 790 ml Balance 790 ml Intake Oral 790 ml # Voids 4 7 Objective HEAD AND NECK: No JVD. The right side of his face has a scar. LUNGS: Clear CARDIOVASCULAR: RRR. No GRM ABDOMEN: Soft EXTREMITIES: 1+ edema. Teto Branch MD May 02, 2018 10:43
--- NOTE | 2018-05-02 10:49 | NUR ---
REH[facility] PT NOTE CONSULT RECEIVED, HILARIO COMPLTED, PATIENT WILL BE DC FROM PT SERVICES, AT BASELINE LEVEL OF FUNCTION. RECOMMEND SNF FOR CONTINUED CARE. NO FURTHER NEEDS. JOYCE DONIS PT DPT Addendum: 05/02/18 at 1049 by JOYCE DONIS PT Amended: Links added.
[2018-05-02 11:26] VITALS: BP 132/85
--- NOTE | 2018-05-02 12:25 | Nephrology Progress Note ---
Assessment/Plan Problem List: (1) Dehydration (2) HTN (hypertension) (3) Failure to thrive in adult (4) Schizophrenia Assessment WBC now wnl (1) Dysphasia (2) Encounter for PEG (percutaneous endoscopic gastrostomy) (3) Schizophrenia (4) Failure to thrive in adult (5) Generalized weakness (6) Severe malnutrition (7) Dehydration (8) Schizophrenia (9) HTN (10) Legally Blind Plan Flomax Psych mangement per consultants ? DC planning Subjective ROS Limited/Unobtainable: No Objective Objective Last 24 Hour Vital Signs Date Time Temp Pulse Resp B/P (MAP) Pulse Ox O2 Delivery O2 Flow Rate FiO2 05/02/18 11:26 97.9 54 20 132/85 (101) 95 05/02/18 09:03 75 124/79 05/02/18 08:00 97.7 75 20 124/79 (94) 98 05/02/18 04:00 98.5 71 20 127/74 (91) 98 05/01/18 23:39 98.3 69 18 121/71 (88) 98 05/01/18 20:00 98.1 67 18 125/76 (92) 96 05/01/18 16:00 97.7 69 18 128/67 (87) 95 Intake and Output 05/01/18 05/02/18 19:00 07:00 Intake Total 790 ml Balance 790 ml Intake Oral 790 ml # Voids 4 7 Height (Feet): 5 Height (Inches): 10.00 Weight (Pounds): 164 General Appearance: no apparent distress, confused Objective no change Al Roper MD May 02, 2018 12:25
--- NOTE | 2018-05-02 12:51 | Infectious Diseases Prog Note ---
Assessment/Plan Assessment/Plan Sepsis- ?source- r/o UTI, PNA- now resolved Afebrile Leukocytosis Increased 04/27/18 , now resolved -CXR 04/28: No acute findings Unclear source no sign of active infection resection of carcinoma from right side of face/eye Wnd Cx : GPC -hx of superinfected necrotic mass and possible micro abscess s/p Tx 06/2017 -wound cx MRSA, diphterouids, ESBL Proteus 04/14/19 Wound Cx Providencia and MRSA FTT COPD dysphasia schizophrenia HTN MDD legally blind hx of VRE/MRSA colonization Plan: - Monitor off abx -Pt was refusing labs and antibiotics; today leukocytosis resolved. - 04/24/18 SP PO Bactrim DS BID - 04/20/18 SP empiric Azactam , Flagyl and IV Vanco d# 6/10 - 04/15/18 SP Ceftriaxone d# 2 -Monitor CBC/CMP, temperatures Subjective Allergies: Coded Allergies: BENZTROPINE (Unverified Allergy, Unknown, 02/22/14) HALOPERIDOL (Unverified Allergy, Unknown, 02/22/14) PENICILLINS (Unverified Allergy, Unknown, 04/14/18) tolerated Ceftriaxone 06/2017 Subjective afebrile off abx leukocytosis resolved Objective Vital Signs Last 24 Hour Vital Signs Date Time Temp Pulse Resp B/P (MAP) Pulse Ox O2 Delivery O2 Flow Rate FiO2 05/02/18 11:26 97.9 54 20 132/85 (101) 95 05/02/18 09:03 75 124/79 05/02/18 08:00 97.7 75 20 124/79 (94) 98 05/02/18 04:00 98.5 71 20 127/74 (91) 98 05/01/18 23:39 98.3 69 18 121/71 (88) 98 05/01/18 20:00 98.1 67 18 125/76 (92) 96 05/01/18 16:00 97.7 69 18 128/67 (87) 95 Height (Feet): 5 Height (Inches): 10.00 Weight (Pounds): 164 Objective General: NAD, irritable HEENT: NCAT, right eye with large ulcer no surrounding erythema or purulence but scar and some necrotic tissue present, left eye - visible cataract, glassy/ hazy appearance Respiratory: CATB, No W/C Cardiovascular no edema, tachycardia Gastrointestinal: normal bowel sounds, non tender, soft Current Medications Medications (Trade) Dose Ordered Sig/Jordi Route PRN Reason Start Time Stop Time Status Last Admin Dose Admin Amlodipine Besylate (Norvasc) 5 mg DAILY ORAL 04/14/18 09:00 05/14/18 08:59 05/02/18 09:03 Ascorbic Acid (Vitamin C) 500 mg DAILY ORAL 04/14/18 09:00 05/14/18 08:59 05/02/18 09:02 Aspirin (ASA) 81 mg DAILY ORAL 04/14/18 09:00 05/14/18 08:59 05/02/18 09:02 Famotidine (Pepcid) 20 mg BID ORAL 04/18/18 18:00 05/18/18 17:59 05/02/18 09:02 Heparin Sodium (Porcine) (Heparin 5000 units/ml) 5,000 units EVERY 12 HOURS SUBQ 04/14/18 09:00 05/14/18 08:59 05/01/18 00:29 Lorazepam (Ativan) 1 mg Q6H PRN ORAL For Anxiety 05/01/18 19:00 05/08/18 18:59 Magnesium Oxide (Mag-Ox 400mg) 400 mg THREE TIMES A DAY ORAL 04/20/18 13:00 05/20/18 12:59 05/02/18 09:02 Multivitamins (Multivitamins) 1 tab DAILY ORAL 04/14/18 09:00 05/14/18 08:59 05/02/18 09:02 Olanzapine (ZyPREXA) 10 mg TID ORAL 04/25/18 18:00 05/25/18 17:59 05/02/18 09:09 Phosphorus (Phospha 250 Neutral) 500 mg THREE TIMES A DAY ORAL 04/20/18 13:00 05/20/18 12:59 05/02/18 09:02 Quetiapine Fumarate (SEROquel) 150 mg EVERY 8 HOURS ORAL 04/21/18 06:00 05/21/18 05:59 05/02/18 05:34 Tamsulosin HCl (Flomax) 0.4 mg BEDTIME ORAL 04/16/18 21:00 05/16/18 20:59 05/01/18 21:25 Carmella Spring M.D. May 02, 2018 12:51
--- NOTE | 2018-05-02 13:42 | General Progress Note ---
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 SNOMED: 89753991 (2) Dehydration ICD Codes: E86.0 - Dehydration SNOMED: 58983479 (3) Basal cell carcinoma ICD Codes: C44.91 - Basal cell carcinoma of skin, unspecified SNOMED: 743644830 (4) Generalized weakness ICD Codes: R53.1 - Weakness SNOMED: 80582391 (5) Cellulitis and abscess of face ICD Codes: L03.211 - Cellulitis of face; L02.01 - Cutaneous abscess of face SNOMED: 794895099 (6) Severe malnutrition ICD Codes: E43 - Unspecified severe protein-calorie malnutrition SNOMED: 85524595 (7) Failure to thrive in adult ICD Codes: R62.7 - Adult failure to thrive SNOMED: 569040066 (8) Periorbital swelling ICD Codes: H57.8 - Periorbital swelling SNOMED: 959230595 (9) Dysphasia ICD Codes: R47.02 - Dysphasia SNOMED: 38515437 (10) HTN (hypertension) ICD Codes: I10 - Essential (primary) hypertension SNOMED: 94167958 (11) UTI (urinary tract infection) ICD Codes: N39.0 - Urinary tract infection, site not specified SNOMED: 07926871 Status: unchanged Assessment/Plan pt diet abx prn cbc bmp am dc plan Subjective Constitutional: Reports: weakness Allergies: Coded Allergies: BENZTROPINE (Unverified Allergy, Unknown, 02/22/14) HALOPERIDOL (Unverified Allergy, Unknown, 02/22/14) PENICILLINS (Unverified Allergy, Unknown, 04/14/18) tolerated Ceftriaxone 06/2017 All Systems: reviewed and negative except above Subjective agitated confused Objective Last 24 Hour Vital Signs Date Time Temp Pulse Resp B/P (MAP) Pulse Ox O2 Delivery O2 Flow Rate FiO2 05/02/18 11:26 97.9 54 20 132/85 (101) 95 05/02/18 09:03 75 124/79 05/02/18 08:00 97.7 75 20 124/79 (94) 98 05/02/18 04:00 98.5 71 20 127/74 (91) 98 05/01/18 23:39 98.3 69 18 121/71 (88) 98 05/01/18 20:00 98.1 67 18 125/76 (92) 96 05/01/18 16:00 97.7 69 18 128/67 (87) 95 Intake and Output 05/01/18 05/02/18 19:00 07:00 Intake Total 790 ml Balance 790 ml Intake Oral 790 ml # Voids 4 7 Height (Feet): 5 Height (Inches): 10.00 Weight (Pounds): 164 General Appearance: confused EENT: normal ENT inspection Neck: normal alignment Cardiovascular: normal peripheral pulses, normal rate, regular rhythm Respiratory/Chest: chest wall non-tender, lungs clear, normal breath sounds Abdomen: normal bowel sounds, non tender, soft Extremities: normal inspection Edema: no edema noted Arm (L), no edema noted Arm (R), no edema noted Leg (L), no edema noted Leg (R), no edema noted Pedal (L), no edema noted Pedal (R), no edema noted Generalized Neurologic: motor weakness Skin: normal pigmentation, warm/dry Julio Higgins DO May 02, 2018 13:42
--- NOTE | 2018-05-02 14:02 | GI Progress Note ---
Assessment/Plan Problems: (1) Dysphasia ICD Codes: R47.02 - Dysphasia SNOMED: 61682229 (2) Schizophrenia ICD Codes: F20.9 - Schizophrenia, unspecified SNOMED: 19239552 (3) Poor fluid intake ICD Codes: R63.8 - Other symptoms and signs concerning food and fluid intake SNOMED: 855969016 (4) Failure to thrive in adult ICD Codes: R62.7 - Adult failure to thrive SNOMED: 475835784 (5) Severe malnutrition ICD Codes: E43 - Unspecified severe protein-calorie malnutrition SNOMED: 99061309 (6) Dehydration ICD Codes: E86.0 - Dehydration SNOMED: 77699130 (7) Schizophreniform psychosis ICD Codes: F20.9 - Schizophreniform psychosis SNOMED: 56300684 (8) Cellulitis and abscess of face ICD Codes: L03.211 - Cellulitis of face; L02.01 - Cutaneous abscess of face SNOMED: 681832758 Status: stable Status Narrative Discussed with Dr. Ferguson Assessment/Plan psych f/u defer PEG, the patient has shown improvement in caloric intake and shows no signs of dysphagia or risk for aspiration. Patient on regular diet push p.o. One-to-one feeder IV/p.o. hydration Antibiotics PPI Follow-up labs The patient was seen and examined at bedside and all new and available data was reviewed in the patients chart. I agree with the above findings, impression and plan. (Patient seen earlier today. Signature stamp does not reflect patient encounter time.). - Juliocesar Ferguson MD Subjective Subjective Limited Objective Last 24 Hour Vital Signs Date Time Temp Pulse Resp B/P (MAP) Pulse Ox O2 Delivery O2 Flow Rate FiO2 05/02/18 11:26 97.9 54 20 132/85 (101) 95 05/02/18 09:03 75 124/79 05/02/18 08:00 97.7 75 20 124/79 (94) 98 05/02/18 04:00 98.5 71 20 127/74 (91) 98 05/01/18 23:39 98.3 69 18 121/71 (88) 98 05/01/18 20:00 98.1 67 18 125/76 (92) 96 05/01/18 16:00 97.7 69 18 128/67 (87) 95 Intake and Output 05/01/18 05/02/18 19:00 07:00 Intake Total 790 ml Balance 790 ml Intake Oral 790 ml # Voids 4 7 Height (Feet): 5 Height (Inches): 10.00 Weight (Pounds): 164 General Appearance: WD/WN, no apparent distress, alert Cardiovascular: normal rate Respiratory/Chest: normal breath sounds, no respiratory distress Abdominal Exam: normal bowel sounds, non tender, soft Extremities: normal range of motion, non-tender Objective Legally blind Roxanna Saavedra NP May 02, 2018 14:01
[2018-05-02 16:00] VITALS: BP 125/85
--- NOTE | 2018-05-02 16:17 | NUR ---
NEUROSURGICAL NURSESTUDENT TEACHING COORDINATOR SI: FAILURE TO THRIVE T. 97.9 HR 54 RR 20 B/P 132/85 IS: SEROQUEL PO ZYPREXA PO HEPARIN SUBC ASA PO PLACEMENT PENDING MED/SURG STATUS
--- NOTE | 2018-05-02 16:51 | General Progress Note ---
Assessment/Plan Assessment/Plan # Leukocytosis. Secondary to underlying infection, sepsis of R eye/hx malignancy that side --> Monitor and trend wbc for improvement -->16.6-->23.0-->31.5-->9.2-->11.2-->22.9-->10 --> Peripheral smear has been reviewed, no blasts noted --> Medications have been reviewed --> Imaging has been reviewed --> has been started on abx, empiric treatment --> per ID management # Anemia of chronic disease --> anemia panel has been reviewed --> trend hgb 12.8-->10.2-->10 # FTT --> refusing care --> defer peg tube given improvement in po intake # Sepsis. 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 # COPD. # Dysphasia # Schizophrenia # HTN. # Legally blind Time and date note entered in EMR does not reflect time and date of encounter. GREATLY APPRECIATE CONSULTATION. Subjective Constitutional: Denies: no symptoms, chills, diaphoresis, fever, malaise, weakness, other HEENT: Denies: no symptoms, eye pain, blurred vision, tearing, double vision, ear pain, ear discharge, nose pain, nose congestion, throat pain, throat swelling, mouth pain, mouth swelling, other Cardiovascular: Denies: no symptoms, chest pain, edema, irregular heart rate, lightheadedness, palpitations, syncope, other Respiratory: Denies: no symptoms, cough, orthopnea, shortness of breath, SOB with excertion, SOB at rest, sputum, stridor, wheezing, other Gastrointestinal/Abdominal: Denies: no symptoms, abdomen distended, abdominal pain, black stools, tarry stools, blood in stool, constipated, diarrhea, difficulty swallowing, nausea, poor appetite, poor fluid intake, rectal bleeding , vomiting, other Genitourinary: Denies: no symptoms, burning, discharge, frequency, flank pain, hematuria, incontinence, pain, urgency, other Neurologic/Psychiatric: Denies: no symptoms, anxiety, depressed, emotional problems, headache, numbness, paresthesia, pre-existing deficit, seizure, tingling, tremors, weakness, other Endocrine: Denies: no symptoms, excessive sweating, flushing, intolerance to cold, intolerance to heat, increased hunger, increased thirst, increased urine, unexplained weight gain, unexplained weight loss, other Hematologic/Lymphatic: Denies: no symptoms, anemia, easy bleeding, easy bruising, other Allergies: Coded Allergies: BENZTROPINE (Unverified Allergy, Unknown, 02/22/14) HALOPERIDOL (Unverified Allergy, Unknown, 02/22/14) PENICILLINS (Unverified Allergy, Unknown, 04/14/18) tolerated Ceftriaxone 06/2017 Subjective 04/15: Pt awake and agitated. No acute events. Pt refusing meds. 04/16: wbc severely elevated, seen by Id, on broad spectrum antifungals, foul language, very aggressive 04/18: no events, mumbling, minimally conversive, no fevers, down on ivf 04/19: pt is awake and resting in bed. refusing care, aggressive, no events 04/20: Pt is awake and alert, refusing care, minimally conversive, on abx, wbc have improved. 04/21: Pt is awake and resting in bed, aggressive, mumbling, 04/22: Pt is resting in bed. PEG has been defered, the patient has shown improvement in caloric intake and shows no signs of dysphagia or risk for aspiration. 04/23: Pt is seen in the room, resting in bed, refusing care, on abx, pending labs 17/: No events, has been agitated overnight, refusing care 04/25: Pt is awake and resting in bed, refusing labs, agitated, screaming, refusing care 04/26: no major events, no fevers or chills, no chest pain or sob 04/27: pt is seen by bedside, awake and comfortable, wbc is at 22.9 today. 04/28: peg has been deferred, gi recs reviewed, no events, slightly agitated 04/29: no events, refusing care, no change other, remains aggressive, says "don' t touch me" 04/30: continues to cuss out, rn by bedside with conservator and able to chnage wound on eye R 05/01: Pt is awake and calm, alert oriented x1, remains afebrile off abx and leukocytosis resolved 05/02: Pt is seen by bedside, awake and calm, no events. pending labs Objective Last 24 Hour Vital Signs Date Time Temp Pulse Resp B/P (MAP) Pulse Ox O2 Delivery O2 Flow Rate FiO2 05/02/18 16:00 98.1 78 20 125/85 (98) 95 05/02/18 11:26 97.9 54 20 132/85 (101) 95 05/02/18 09:03 75 124/79 05/02/18 08:00 97.7 75 20 124/79 (94) 98 05/02/18 04:00 98.5 71 20 127/74 (91) 98 05/01/18 23:39 98.3 69 18 121/71 (88) 98 05/01/18 20:00 98.1 67 18 125/76 (92) 96 Intake and Output 05/01/18 05/02/18 19:00 07:00 Intake Total 790 ml Balance 790 ml Intake Oral 790 ml # Voids 4 7 Height (Feet): 5 Height (Inches): 10.00 Weight (Pounds): 164 Objective Vitals: Have been reviewed General Appearance: alert, agitated Head: normocephalic, atraumatic Eyes: right eye abnormal pupil - right eye has patch which covers the right temporal area of face as well from cancer ressection; left eye other - visible cataract, glassy/hazy appearance, unchanged ENT: hearing grossly normal, other Neck: full range of motion Respiratory: chest non-tender, lungs clear Cardiovascular no edema, tachycardia Gastrointestinal: normal bs, non tender, soft MSK: back normal, non-tender, bilateral hand contractures Skin: normal color, no rash, warm/dry Jr Daly MD May 02, 2018 16:50
--- NOTE | 2018-05-02 19:22 | NUR ---
HAND-OFF: Report given to ANISH Cedeño.
--- NOTE | 2018-05-02 19:25 | NUR ---
HAND-OFF: Report given to Gala OCONNELL.
--- NOTE | 2018-05-02 19:38 | NUR ---
NURSE NOTES: Received patient awake in bed, no signs of acute distress or agitation. No IV site. 3 side rails up, bed on lowest position, call light within reach. Addendum: 05/02/18 at 2338 by Navneet Leonardo RN Refused 2100 meds despite education of benefits. Documented non-admin on eMar.
[2018-05-02] MEDS: Tamsulosin 0.4mg cap ORAL SCH ×3 (20:34→21:33)
--- NOTE | 2018-05-03 | NUR ---
NURSE NOTES: Patient refused 2000 and 0000 vital signs. Patient appears stable with no acute signs of distress.
--- NOTE | 2018-05-03 07:14 | NUR ---
HAND-OFF: Report given to ANISH Taylor and ANISH Spring.
[2018-05-03 08:00] VITALS: BP 125/77
--- NOTE | 2018-05-03 08:02 | NUR ---
NURSE NOTES: Received patient from ANISH Crowell. Patient is awake, in bed. Patient is not in respiratory distress. Bed in the lowest position. Call light is within reach.Will continue monitoring patient.
--- NOTE | 2018-05-03 08:08 | NUR ---
NURSE NOTES: received patient from Gala OCONNELL, patient is in bed resting, awake, no distress noted, bed is locked and in lowest position, will continue to monitor.
[2018-05-03] MEDS: Heparin 5000 units/ml inj SUBQ SCH ×3 (09:00→21:00)
[2018-05-03] MEDS: Aspirin Baby 81mg ORAL SCH (09:33)
[2018-05-03] MEDS: Magnesium Oxide 400mg tab ORAL SCH ×3 (09:33→17:12)
[2018-05-03] MEDS: Ascorbic Acid 500mg tab ORAL SCH (09:35)
[2018-05-03] MEDS: Phospha 250 Neutral tab ORAL SCH ×3 (09:35→17:13)
[2018-05-03] MEDS: OLANZapine 10mg tab ORAL SCH ×3 (09:36→17:13)
--- NOTE | 2018-05-03 10:57 | NUR ---
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 97.2 HR 78 RR 20 B/P 125/77 IS: ZYPREXA PO SEROQUEL PO PEPCID PO HEPARIN SUBC MED/SURG STATUS
--- NOTE | 2018-05-03 10:59 | NUR ---
BOOT TURNER NOTES SPOKE WITH MIGUEL ANGEL FROM [facility], ADMISSION COORDINATOR IS CURRENTLY LOOKING FOR A BED. [place] [phone]
--- NOTE | 2018-05-03 11:08 | Infectious Diseases Prog Note ---
Assessment/Plan Assessment/Plan Sepsis- ?source- r/o UTI, PNA- now resolved Afebrile Leukocytosis Increased 04/27/18 , now resolved -CXR 04/28: No acute findings Unclear source no sign of active infection resection of carcinoma from right side of face/eye Wnd Cx : GPC -hx of superinfected necrotic mass and possible micro abscess s/p Tx 06/2017 -wound cx MRSA, diphterouids, ESBL Proteus 04/14/19 Wound Cx Providencia and MRSA FTT COPD dysphasia schizophrenia HTN MDD legally blind hx of VRE/MRSA colonization Plan: - Monitor off abx -Pt was refusing labs and antibiotics; today leukocytosis resolved. - 04/24/18 SP PO Bactrim DS BID - 04/20/18 SP empiric Azactam , Flagyl and IV Vanco d# 6/10 - 04/15/18 SP Ceftriaxone d# 2 -Monitor CBC/CMP, temperatures Subjective Allergies: Coded Allergies: BENZTROPINE (Unverified Allergy, Unknown, 02/22/14) HALOPERIDOL (Unverified Allergy, Unknown, 02/22/14) PENICILLINS (Unverified Allergy, Unknown, 04/14/18) tolerated Ceftriaxone 06/2017 Subjective afebrile off abx no leukocytosis Objective Vital Signs Last 24 Hour Vital Signs Date Time Temp Pulse Resp B/P (MAP) Pulse Ox O2 Delivery O2 Flow Rate FiO2 05/03/18 09:34 78 125/85 05/03/18 08:00 97.2 20 125/77 (93) 77 05/02/18 16:00 98.1 78 20 125/85 (98) 95 05/02/18 11:26 97.9 54 20 132/85 (101) 95 Height (Feet): 5 Height (Inches): 10.00 Weight (Pounds): 168 Objective General: NAD, irritable HEENT: NCAT, right eye with large ulcer no surrounding erythema or purulence but scar and some necrotic tissue present, left eye - visible cataract, glassy/ hazy appearance Respiratory: CATB, No W/C Cardiovascular no edema, tachycardia Gastrointestinal: normal bowel sounds, non tender, soft Current Medications Medications (Trade) Dose Ordered Sig/Jordi Route PRN Reason Start Time Stop Time Status Last Admin Dose Admin Amlodipine Besylate (Norvasc) 5 mg DAILY ORAL 04/14/18 09:00 05/14/18 08:59 05/03/18 09:34 Ascorbic Acid (Vitamin C) 500 mg DAILY ORAL 04/14/18 09:00 05/14/18 08:59 05/03/18 09:35 Aspirin (ASA) 81 mg DAILY ORAL 04/14/18 09:00 05/14/18 08:59 05/03/18 09:33 Famotidine (Pepcid) 20 mg BID ORAL 04/18/18 18:00 05/18/18 17:59 05/03/18 09:34 Heparin Sodium (Porcine) (Heparin 5000 units/ml) 5,000 units EVERY 12 HOURS SUBQ 04/14/18 09:00 05/14/18 08:59 05/01/18 00:29 Lorazepam (Ativan) 1 mg Q6H PRN ORAL For Anxiety 05/01/18 19:00 05/08/18 18:59 Magnesium Oxide (Mag-Ox 400mg) 400 mg THREE TIMES A DAY ORAL 04/20/18 13:00 05/20/18 12:59 05/03/18 09:33 Multivitamins (Multivitamins) 1 tab DAILY ORAL 04/14/18 09:00 05/14/18 08:59 05/03/18 09:33 Olanzapine (ZyPREXA) 10 mg TID ORAL 04/25/18 18:00 05/25/18 17:59 05/03/18 09:36 Phosphorus (Phospha 250 Neutral) 500 mg THREE TIMES A DAY ORAL 04/20/18 13:00 05/20/18 12:59 05/03/18 09:35 Quetiapine Fumarate (SEROquel) 150 mg EVERY 8 HOURS ORAL 04/21/18 06:00 05/21/18 05:59 05/03/18 05:27 Tamsulosin HCl (Flomax) 0.4 mg BEDTIME ORAL 04/16/18 21:00 05/16/18 20:59 05/01/18 21:25 Carmella Spring M.D. May 03, 2018 11:08
--- NOTE | 2018-05-03 11:50 | GI Progress Note ---
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 Ferguson Assessment/Plan psych f/u defer PEG, the patient has shown improvement in caloric intake and shows no signs of dysphagia or risk for aspiration. Patient on regular diet push p.o. One-to-one feeder IV/p.o. hydration Antibiotics PPI Follow-up labs The patient was seen and examined at bedside and all new and available data was reviewed in the patients chart. I agree with the above findings, impression and plan. (Patient seen earlier today. Signature stamp does not reflect patient encounter time.). - Juliocesar Ferguson MD Subjective Subjective Limited Objective Last 24 Hour Vital Signs Date Time Temp Pulse Resp B/P (MAP) Pulse Ox O2 Delivery O2 Flow Rate FiO2 05/03/18 09:34 78 125/85 05/03/18 08:00 97.2 20 125/77 (93) 77 05/02/18 16:00 98.1 78 20 125/85 (98) 95 Intake and Output 05/02/18 05/03/18 19:00 07:00 Intake Total 480 ml Output Total 800 ml Balance -320 ml Intake Oral 480 ml Output Urine Total 800 ml # Voids 3 Height (Feet): 5 Height (Inches): 10.00 Weight (Pounds): 168 General Appearance: no apparent distress, alert, confused Cardiovascular: normal rate Respiratory/Chest: normal breath sounds, no respiratory distress Abdominal Exam: normal bowel sounds, non tender, soft Extremities: non-tender Objective Legally blind Roxanna Saavedra NP May 03, 2018 11:50
[2018-05-03 12:00] VITALS: BP 132/76
--- NOTE | 2018-05-03 14:02 | Cardiac Electrophysiology PN ---
Assessment/Plan Assessment/Plan 1. Sinus tachycardia. Refused ECG. Due to anxiety and infection. HR better 80s 2. Hypertension, on Norvasc 5 mg daily. 3. Schizophrenia. 4. Right facial basal cell carcinoma, status post surgery with necrotic skin. 5. Dysphagia, resolved, followup with Dr. Ferguson. RONNIE RN DC today Subjective Subjective No events Objective Last 24 Hour Vital Signs Date Time Temp Pulse Resp B/P (MAP) Pulse Ox O2 Delivery O2 Flow Rate FiO2 05/03/18 12:00 97.9 20 132/76 (94) 100 05/03/18 09:34 78 125/85 05/03/18 08:00 97.2 20 125/77 (93) 77 05/02/18 16:00 98.1 78 20 125/85 (98) 95 Intake and Output 05/02/18 05/03/18 19:00 07:00 Intake Total 480 ml Output Total 800 ml Balance -320 ml Intake Oral 480 ml Output Urine Total 800 ml # Voids 3 Objective HEAD AND NECK: No JVD. The right side of his face has a scar. LUNGS: Clear CARDIOVASCULAR: RRR. No GRM ABDOMEN: Soft EXTREMITIES: No edema. Teto Branch MD May 03, 2018 14:02
--- NOTE | 2018-05-03 14:28 | General Progress Note ---
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 SNOMED: 50966446 (2) Dehydration ICD Codes: E86.0 - Dehydration SNOMED: 87424244 (3) Basal cell carcinoma ICD Codes: C44.91 - Basal cell carcinoma of skin, unspecified SNOMED: 752472173 (4) Generalized weakness ICD Codes: R53.1 - Weakness SNOMED: 48952604 (5) Cellulitis and abscess of face ICD Codes: L03.211 - Cellulitis of face; L02.01 - Cutaneous abscess of face SNOMED: 809165256 (6) Severe malnutrition ICD Codes: E43 - Unspecified severe protein-calorie malnutrition SNOMED: 55469679 (7) Failure to thrive in adult ICD Codes: R62.7 - Adult failure to thrive SNOMED: 893181589 (8) Periorbital swelling ICD Codes: H57.8 - Periorbital swelling SNOMED: 125305958 (9) Dysphasia ICD Codes: R47.02 - Dysphasia SNOMED: 41209172 (10) HTN (hypertension) ICD Codes: I10 - Essential (primary) hypertension SNOMED: 47157402 (11) UTI (urinary tract infection) ICD Codes: N39.0 - Urinary tract infection, site not specified SNOMED: 06454386 Status: unchanged Assessment/Plan pt diet abx prn cbc bmp am dc plan Subjective Constitutional: Reports: weakness Allergies: Coded Allergies: BENZTROPINE (Unverified Allergy, Unknown, 02/22/14) HALOPERIDOL (Unverified Allergy, Unknown, 02/22/14) PENICILLINS (Unverified Allergy, Unknown, 04/14/18) tolerated Ceftriaxone 06/2017 All Systems: reviewed and negative except above Subjective sleepy calm Objective Last 24 Hour Vital Signs Date Time Temp Pulse Resp B/P (MAP) Pulse Ox O2 Delivery O2 Flow Rate FiO2 05/03/18 12:00 97.9 20 132/76 (94) 100 05/03/18 09:34 78 125/85 05/03/18 08:00 97.2 20 125/77 (93) 77 05/02/18 16:00 98.1 78 20 125/85 (98) 95 Intake and Output 05/02/18 05/03/18 19:00 07:00 Intake Total 480 ml Output Total 800 ml Balance -320 ml Intake Oral 480 ml Output Urine Total 800 ml # Voids 3 Height (Feet): 5 Height (Inches): 10.00 Weight (Pounds): 168 General Appearance: lethargic EENT: normal ENT inspection Neck: normal alignment Cardiovascular: normal peripheral pulses, normal rate, regular rhythm Respiratory/Chest: chest wall non-tender, lungs clear, normal breath sounds Abdomen: normal bowel sounds, non tender, soft Extremities: normal inspection Edema: no edema noted Arm (L), no edema noted Arm (R), no edema noted Leg (L), no edema noted Leg (R), no edema noted Pedal (L), no edema noted Pedal (R), no edema noted Generalized Neurologic: motor weakness Skin: normal pigmentation, warm/dry Julio Higgins DO May 03, 2018 14:28
--- NOTE | 2018-05-03 15:05 | Nephrology Progress Note ---
Assessment/Plan Problem List: (1) Dehydration (2) HTN (hypertension) (3) Failure to thrive in adult (4) Schizophrenia Assessment WBC now wnl (1) Dysphasia (2) Encounter for PEG (percutaneous endoscopic gastrostomy) (3) Schizophrenia (4) Failure to thrive in adult (5) Generalized weakness (6) Severe malnutrition (7) Dehydration (8) Schizophrenia (9) HTN (10) Legally Blind Plan Flomax Psych mangement per consultants ? DC planning Subjective ROS Limited/Unobtainable: No Constitutional: Reports: malaise Objective Objective Last 24 Hour Vital Signs Date Time Temp Pulse Resp B/P (MAP) Pulse Ox O2 Delivery O2 Flow Rate FiO2 05/03/18 12:00 97.9 20 132/76 (94) 100 05/03/18 09:34 78 125/85 05/03/18 08:00 97.2 20 125/77 (93) 77 05/02/18 16:00 98.1 78 20 125/85 (98) 95 Intake and Output 05/02/18 05/03/18 19:00 07:00 Intake Total 480 ml Output Total 800 ml Balance -320 ml Intake Oral 480 ml Output Urine Total 800 ml # Voids 3 Height (Feet): 5 Height (Inches): 10.00 Weight (Pounds): 168 General Appearance: no apparent distress Objective no change Al Roper MD May 03, 2018 15:05
[2018-05-03 16:00] VITALS: BP 114/76
--- NOTE | 2018-05-03 16:24 | General Progress Note ---
Assessment/Plan Assessment/Plan # Leukocytosis. Secondary to underlying infection, sepsis of R eye/hx malignancy that side --> Monitor and trend wbc for improvement -->16.6-->23.0-->31.5-->9.2-->11.2-->22.9-->10 --> Peripheral smear has been reviewed, no blasts noted --> Medications have been reviewed --> Imaging has been reviewed --> has been started on abx, empiric treatment --> per ID management # Anemia of chronic disease --> anemia panel has been reviewed --> trend hgb 12.8-->10.2-->10 # FTT --> refusing care --> defer peg tube given improvement in po intake # Sepsis. 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 # COPD. # Dysphasia # Schizophrenia # HTN. # Legally blind Time and date note entered in EMR does not reflect time and date of encounter. GREATLY APPRECIATE CONSULTATION. Subjective Constitutional: Denies: no symptoms, chills, diaphoresis, fever, malaise, weakness, other HEENT: Denies: no symptoms, eye pain, blurred vision, tearing, double vision, ear pain, ear discharge, nose pain, nose congestion, throat pain, throat swelling, mouth pain, mouth swelling, other Cardiovascular: Denies: no symptoms, chest pain, edema, irregular heart rate, lightheadedness, palpitations, syncope, other Respiratory: Denies: no symptoms, cough, orthopnea, shortness of breath, SOB with excertion, SOB at rest, sputum, stridor, wheezing, other Gastrointestinal/Abdominal: Denies: no symptoms, abdomen distended, abdominal pain, black stools, tarry stools, blood in stool, constipated, diarrhea, difficulty swallowing, nausea, poor appetite, poor fluid intake, rectal bleeding , vomiting, other Genitourinary: Denies: no symptoms, burning, discharge, frequency, flank pain, hematuria, incontinence, pain, urgency, other Neurologic/Psychiatric: Denies: no symptoms, anxiety, depressed, emotional problems, headache, numbness, paresthesia, pre-existing deficit, seizure, tingling, tremors, weakness, other Endocrine: Denies: no symptoms, excessive sweating, flushing, intolerance to cold, intolerance to heat, increased hunger, increased thirst, increased urine, unexplained weight gain, unexplained weight loss, other Hematologic/Lymphatic: Denies: no symptoms, anemia, easy bleeding, easy bruising, other Allergies: Coded Allergies: BENZTROPINE (Unverified Allergy, Unknown, 02/22/14) HALOPERIDOL (Unverified Allergy, Unknown, 02/22/14) PENICILLINS (Unverified Allergy, Unknown, 04/14/18) tolerated Ceftriaxone 06/2017 Subjective 04/15: Pt awake and agitated. No acute events. Pt refusing meds. 04/16: wbc severely elevated, seen by Id, on broad spectrum antifungals, foul language, very aggressive 04/18: no events, mumbling, minimally conversive, no fevers, down on ivf 04/19: pt is awake and resting in bed. refusing care, aggressive, no events 04/20: Pt is awake and alert, refusing care, minimally conversive, on abx, wbc have improved. 04/21: Pt is awake and resting in bed, aggressive, mumbling, 04/22: Pt is resting in bed. PEG has been defered, the patient has shown improvement in caloric intake and shows no signs of dysphagia or risk for aspiration. 04/23: Pt is seen in the room, resting in bed, refusing care, on abx, pending labs 17/: No events, has been agitated overnight, refusing care 04/25: Pt is awake and resting in bed, refusing labs, agitated, screaming, refusing care 04/26: no major events, no fevers or chills, no chest pain or sob 04/27: pt is seen by bedside, awake and comfortable, wbc is at 22.9 today. 04/28: peg has been deferred, gi recs reviewed, no events, slightly agitated 04/29: no events, refusing care, no change other, remains aggressive, says "don' t touch me" 04/30: continues to cuss out, rn by bedside with conservator and able to chnage wound on eye R 05/01: Pt is awake and calm, alert oriented x1, remains afebrile off abx and leukocytosis resolved 05/02: Pt is seen by bedside, awake and calm, no events. pending labs 05/03: Pt is alert and oriented x1, remains afebrile off abx and leukocytosis resolved Objective Last 24 Hour Vital Signs Date Time Temp Pulse Resp B/P (MAP) Pulse Ox O2 Delivery O2 Flow Rate FiO2 05/03/18 16:00 97.7 20 114/76 (89) 95 05/03/18 12:00 97.9 20 132/76 (94) 100 05/03/18 09:34 78 125/85 05/03/18 08:00 97.2 20 125/77 (93) 77 Intake and Output 05/02/18 05/03/18 19:00 07:00 Intake Total 480 ml Output Total 800 ml Balance -320 ml Intake Oral 480 ml Output Urine Total 800 ml # Voids 3 Height (Feet): 5 Height (Inches): 10.00 Weight (Pounds): 168 Objective Vitals: Have been reviewed General Appearance: alert, agitated Head: normocephalic, atraumatic Eyes: right eye abnormal pupil - right eye has patch which covers the right temporal area of face as well from cancer ressection; left eye other - visible cataract, glassy/hazy appearance, unchanged ENT: hearing grossly normal, other Neck: full range of motion Respiratory: chest non-tender, lungs clear Cardiovascular no edema, tachycardia Gastrointestinal: normal bs, non tender, soft MSK: back normal, non-tender, bilateral hand contractures Skin: normal color, no rash, warm/dry Jr Daly MD May 03, 2018 16:24
--- NOTE | 2018-05-03 19:05 | NUR ---
HAND-OFF: Report given to Gala OCONNELL.
--- NOTE | 2018-05-03 19:05 | NUR ---
HAND-OFF: Report given to ANISH Crowell.
--- NOTE | 2018-05-03 19:32 | NUR ---
NURSE NOTES: Received patient asleep in bed, no apparent signs of distress. No IV site, on room air. Bed on lowest position, bed alarm on, 3 side rails up. Will continue to monitor.
[2018-05-03 20:00] VITALS: BP 122/67
[2018-05-04] VITALS: BP 108/68
[2018-05-04 04:00] VITALS: BP 124/84
--- NOTE | 2018-05-04 07:11 | NUR ---
HAND-OFF: Report given to Anuja Dowd RN.
--- NOTE | 2018-05-04 07:13 | NUR ---
NURSE NOTES: Report received from ANISH Cedeño and ANISH Crowell. Pt in bed, awake, talkative, no complaints of pain, no apparent distress noted, bed in lowest position, call light within reach.
[2018-05-04 08:00] VITALS: BP 122/81
[2018-05-04] MEDS: Ascorbic Acid 500mg tab ORAL SCH (08:31)
[2018-05-04] MEDS: Magnesium Oxide 400mg tab ORAL SCH ×5 (08:31→18:00)
[2018-05-04] MEDS: Phospha 250 Neutral tab ORAL SCH ×5 (08:31→18:00)
[2018-05-04] MEDS: LORazepam 1mg tab ORAL PRN ×2 (08:31→17:16)
[2018-05-04] MEDS: Aspirin Baby 81mg ORAL SCH (08:31)
[2018-05-04] MEDS: Heparin 5000 units/ml inj SUBQ SCH ×3 (08:34→21:00)
[2018-05-04] MEDS: OLANZapine 10mg tab ORAL SCH ×5 (08:40→18:00)
--- NOTE | 2018-05-04 12:28 | NUR ---
LABEL REMOVER NOTES PT ACCEPTED TO [facility] ROOM [address] BED A. NURSE TO GIVE REPORT TO [phone].AWAITING OFFICIAL DC ORDER.
--- NOTE | 2018-05-04 13:34 | General Progress Note ---
Assessment/Plan Assessment/Plan # Leukocytosis. Secondary to underlying infection, sepsis of R eye/hx malignancy that side --> Monitor and trend wbc for improvement -->16.6-->23.0-->31.5-->9.2-->11.2-->22.9-->10 --> Peripheral smear has been reviewed, no blasts noted --> Medications have been reviewed --> Imaging has been reviewed --> has been started on abx, empiric treatment --> per ID management # Anemia of chronic disease --> anemia panel has been reviewed --> trend hgb 12.8-->10.2-->10 # FTT --> refusing care --> defer peg tube given improvement in po intake # Sepsis. 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 # COPD. # Dysphasia # Schizophrenia # HTN. # Legally blind Time and date note entered in EMR does not reflect time and date of encounter. GREATLY APPRECIATE CONSULTATION. Subjective Constitutional: Denies: no symptoms, chills, diaphoresis, fever, malaise, weakness, other HEENT: Denies: no symptoms, eye pain, blurred vision, tearing, double vision, ear pain, ear discharge, nose pain, nose congestion, throat pain, throat swelling, mouth pain, mouth swelling, other Cardiovascular: Denies: no symptoms, chest pain, edema, irregular heart rate, lightheadedness, palpitations, syncope, other Respiratory: Denies: no symptoms, cough, orthopnea, shortness of breath, SOB with excertion, SOB at rest, sputum, stridor, wheezing, other Gastrointestinal/Abdominal: Denies: no symptoms, abdomen distended, abdominal pain, black stools, tarry stools, blood in stool, constipated, diarrhea, difficulty swallowing, nausea, poor appetite, poor fluid intake, rectal bleeding , vomiting, other Genitourinary: Denies: no symptoms, burning, discharge, frequency, flank pain, hematuria, incontinence, pain, urgency, other Neurologic/Psychiatric: Denies: no symptoms, anxiety, depressed, emotional problems, headache, numbness, paresthesia, pre-existing deficit, seizure, tingling, tremors, weakness, other Endocrine: Denies: no symptoms, excessive sweating, flushing, intolerance to cold, intolerance to heat, increased hunger, increased thirst, increased urine, unexplained weight gain, unexplained weight loss, other Allergies: Coded Allergies: BENZTROPINE (Unverified Allergy, Unknown, 02/22/14) HALOPERIDOL (Unverified Allergy, Unknown, 02/22/14) PENICILLINS (Unverified Allergy, Unknown, 04/14/18) tolerated Ceftriaxone 06/2017 Subjective 04/15: Pt awake and agitated. No acute events. Pt refusing meds. 04/16: wbc severely elevated, seen by Id, on broad spectrum antifungals, foul language, very aggressive 04/18: no events, mumbling, minimally conversive, no fevers, down on ivf 04/19: pt is awake and resting in bed. refusing care, aggressive, no events 04/20: Pt is awake and alert, refusing care, minimally conversive, on abx, wbc have improved. 04/21: Pt is awake and resting in bed, aggressive, mumbling, 04/22: Pt is resting in bed. PEG has been defered, the patient has shown improvement in caloric intake and shows no signs of dysphagia or risk for aspiration. 04/23: Pt is seen in the room, resting in bed, refusing care, on abx, pending labs /: No events, has been agitated overnight, refusing care 04/25: Pt is awake and resting in bed, refusing labs, agitated, screaming, refusing care 04/26: no major events, no fevers or chills, no chest pain or sob 04/27: pt is seen by bedside, awake and comfortable, wbc is at 22.9 today. 04/28: peg has been deferred, gi recs reviewed, no events, slightly agitated 04/29: no events, refusing care, no change other, remains aggressive, says "don' t touch me" 04/30: continues to cuss out, rn by bedside with conservator and able to chnage wound on eye R 05/01: Pt is awake and calm, alert oriented x1, remains afebrile off abx and leukocytosis resolved 05/02: Pt is seen by bedside, awake and calm, no events. pending labs 05/03: Pt is alert and oriented x1, remains afebrile off abx and leukocytosis resolved 05/04: accepted at [facility] as early as today Objective Last 24 Hour Vital Signs Date Time Temp Pulse Resp B/P (MAP) Pulse Ox O2 Delivery O2 Flow Rate FiO2 05/04/18 09:00 Room Air 05/04/18 08:31 80 122/81 05/04/18 08:00 98.1 80 19 122/81 (95) 96 05/04/18 04:00 97.8 79 19 124/84 (97) 95 05/04/18 00:00 98.4 67 19 108/68 (81) 94 05/03/18 21:00 Room Air 05/03/18 20:00 98.4 69 19 122/67 (85) 95 05/03/18 16:00 97.7 20 114/76 (89) 95 Intake and Output 05/03/18 05/04/18 18:59 06:59 Intake Total 600 ml 250 ml Output Total 1100 ml Balance -500 ml 250 ml Intake Oral 600 ml 250 ml Output Urine Total 1100 ml # Voids 2 Height (Feet): 5 Height (Inches): 10.00 Weight (Pounds): 168 Objective Vitals: Have been reviewed General Appearance: alert, agitated Head: normocephalic, atraumatic Eyes: right eye abnormal pupil - right eye has patch which covers the right temporal area of face as well from cancer ressection; left eye other - visible cataract, glassy/hazy appearance, unchanged ENT: hearing grossly normal, other Neck: full range of motion Respiratory: chest non-tender, lungs clear Cardiovascular no edema, tachycardia Gastrointestinal: normal bs, non tender, soft MSK: back normal, non-tender, bilateral hand contractures Skin: normal color, no rash, warm/dry Jr Daly MD May 04, 2018 13:34
--- NOTE | 2018-05-04 13:39 | GI Progress Note ---
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 Ferguson. Assessment/Plan psych f/u defer PEG, the patient has shown improvement in caloric intake and shows no signs of dysphagia or risk for aspiration. Patient on regular diet push p.o. One-to-one feeder IV/p.o. hydration Antibiotics PPI Follow-up labs The patient was seen and examined at bedside and all new and available data was reviewed in the patients chart. I agree with the above findings, impression and plan. (Patient seen earlier today. Signature stamp does not reflect patient encounter time.). - Juliocesar Ferguson MD Subjective Subjective Limited Objective Last 24 Hour Vital Signs Date Time Temp Pulse Resp B/P (MAP) Pulse Ox O2 Delivery O2 Flow Rate FiO2 05/04/18 09:00 Room Air 05/04/18 08:31 80 122/81 05/04/18 08:00 98.1 80 19 122/81 (95) 96 05/04/18 04:00 97.8 79 19 124/84 (97) 95 05/04/18 00:00 98.4 67 19 108/68 (81) 94 05/03/18 21:00 Room Air 05/03/18 20:00 98.4 69 19 122/67 (85) 95 05/03/18 16:00 97.7 20 114/76 (89) 95 Intake and Output 05/03/18 05/04/18 18:59 06:59 Intake Total 600 ml 250 ml Output Total 1100 ml Balance -500 ml 250 ml Intake Oral 600 ml 250 ml Output Urine Total 1100 ml # Voids 2 Height (Feet): 5 Height (Inches): 10.00 Weight (Pounds): 168 General Appearance: no apparent distress Cardiovascular: normal rate Respiratory/Chest: normal breath sounds, no respiratory distress Abdominal Exam: normal bowel sounds, non tender, soft Extremities: non-tender Objective Legally blind Roxanna Saavedra NP May 04, 2018 13:39
--- NOTE | 2018-05-04 14:16 | General Progress Note ---
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 SNOMED: 31372357 (2) Dehydration ICD Codes: E86.0 - Dehydration SNOMED: 81868952 (3) Basal cell carcinoma ICD Codes: C44.91 - Basal cell carcinoma of skin, unspecified SNOMED: 575507940 (4) Generalized weakness ICD Codes: R53.1 - Weakness SNOMED: 61309695 (5) Cellulitis and abscess of face ICD Codes: L03.211 - Cellulitis of face; L02.01 - Cutaneous abscess of face SNOMED: 129756487 (6) Severe malnutrition ICD Codes: E43 - Unspecified severe protein-calorie malnutrition SNOMED: 49020753 (7) Failure to thrive in adult ICD Codes: R62.7 - Adult failure to thrive SNOMED: 772911170 (8) Periorbital swelling ICD Codes: H57.8 - Periorbital swelling SNOMED: 427839197 (9) Dysphasia ICD Codes: R47.02 - Dysphasia SNOMED: 31291963 (10) HTN (hypertension) ICD Codes: I10 - Essential (primary) hypertension SNOMED: 83226672 (11) UTI (urinary tract infection) ICD Codes: N39.0 - Urinary tract infection, site not specified SNOMED: 19913524 Status: stable, progressing Assessment/Plan pt diet abx prn dc if clear Subjective Constitutional: Reports: weakness Allergies: Coded Allergies: BENZTROPINE (Unverified Allergy, Unknown, 02/22/14) HALOPERIDOL (Unverified Allergy, Unknown, 02/22/14) PENICILLINS (Unverified Allergy, Unknown, 04/14/18) tolerated Ceftriaxone 06/2017 All Systems: reviewed and negative except above Subjective sleepy calm Objective Last 24 Hour Vital Signs Date Time Temp Pulse Resp B/P (MAP) Pulse Ox O2 Delivery O2 Flow Rate FiO2 05/04/18 09:00 Room Air 05/04/18 08:31 80 122/81 05/04/18 08:00 98.1 80 19 122/81 (95) 96 05/04/18 04:00 97.8 79 19 124/84 (97) 95 05/04/18 00:00 98.4 67 19 108/68 (81) 94 05/03/18 21:00 Room Air 05/03/18 20:00 98.4 69 19 122/67 (85) 95 05/03/18 16:00 97.7 20 114/76 (89) 95 Intake and Output 05/03/18 05/04/18 19:00 07:00 Intake Total 600 ml 250 ml Output Total 1100 ml Balance -500 ml 250 ml Intake Oral 600 ml 250 ml Output Urine Total 1100 ml # Voids 2 Height (Feet): 5 Height (Inches): 10.00 Weight (Pounds): 168 General Appearance: lethargic EENT: normal ENT inspection Neck: normal alignment Cardiovascular: normal peripheral pulses, normal rate, regular rhythm Respiratory/Chest: chest wall non-tender, lungs clear, normal breath sounds Abdomen: normal bowel sounds, non tender, soft Extremities: normal inspection Edema: no edema noted Arm (L), no edema noted Arm (R), no edema noted Leg (L), no edema noted Leg (R), no edema noted Pedal (L), no edema noted Pedal (R), no edema noted Generalized Neurologic: motor weakness Skin: normal pigmentation, warm/dry Julio Higgins DO May 04, 2018 14:16
--- NOTE | 2018-05-04 14:25 | NUR ---
*-* DISCHARGE PLANNED *-* PATIENT DISCHARGE TO"[facility] ROOM# 205-B [facility] T: [phone] FOR NURSE TO NURSE REPORT [facility] HAS BEEN ARRANGED FOR OUTSOLE [facility] [id number]
--- NOTE | 2018-05-04 15:20 | Nephrology Progress Note ---
Assessment/Plan Problem List: (1) Dehydration (2) HTN (hypertension) (3) Failure to thrive in adult (4) Schizophrenia Assessment WBC now wnl (1) Dysphasia (2) Encounter for PEG (percutaneous endoscopic gastrostomy) (3) Schizophrenia (4) Failure to thrive in adult (5) Generalized weakness (6) Severe malnutrition (7) Dehydration (8) Schizophrenia (9) HTN (10) Legally Blind Plan Flomax Psych mangement per consultants ? DC planning Subjective ROS Limited/Unobtainable: No Objective Objective Last 24 Hour Vital Signs Date Time Temp Pulse Resp B/P (MAP) Pulse Ox O2 Delivery O2 Flow Rate FiO2 05/04/18 09:00 Room Air 05/04/18 08:31 80 122/81 05/04/18 08:00 98.1 80 19 122/81 (95) 96 05/04/18 04:00 97.8 79 19 124/84 (97) 95 05/04/18 00:00 98.4 67 19 108/68 (81) 94 05/03/18 21:00 Room Air 05/03/18 20:00 98.4 69 19 122/67 (85) 95 05/03/18 16:00 97.7 20 114/76 (89) 95 Intake and Output 05/03/18 05/04/18 19:00 07:00 Intake Total 600 ml 250 ml Output Total 1100 ml Balance -500 ml 250 ml Intake Oral 600 ml 250 ml Output Urine Total 1100 ml # Voids 2 Height (Feet): 5 Height (Inches): 10.00 Weight (Pounds): 168 General Appearance: no apparent distress Objective no change Al Roper MD May 04, 2018 15:20
--- NOTE | 2018-05-04 15:30 | Infectious Diseases Prog Note ---
Assessment/Plan Assessment/Plan Sepsis- ?source- r/o UTI, PNA- now resolved Afebrile Leukocytosis Increased 04/27/18 , now resolved -CXR 04/28: No acute findings Unclear source no sign of active infection resection of carcinoma from right side of face/eye Wnd Cx : GPC -hx of superinfected necrotic mass and possible micro abscess s/p Tx 06/2017 -wound cx MRSA, diphterouids, ESBL Proteus 04/14/19 Wound Cx Providencia and MRSA FTT COPD dysphasia schizophrenia HTN MDD legally blind hx of VRE/MRSA colonization Plan: - Monitor off abx -Pt was refusing labs and antibiotics; today leukocytosis resolved. - 04/24/18 SP PO Bactrim DS BID - 04/20/18 SP empiric Azactam , Flagyl and IV Vanco d# 6/10 - 04/15/18 SP Ceftriaxone d# 2 -Monitor CBC/CMP, temperatures Subjective Allergies: Coded Allergies: BENZTROPINE (Unverified Allergy, Unknown, 02/22/14) HALOPERIDOL (Unverified Allergy, Unknown, 02/22/14) PENICILLINS (Unverified Allergy, Unknown, 04/14/18) tolerated Ceftriaxone 06/2017 Subjective afebrile off abx no leukocytosis Objective Vital Signs Last 24 Hour Vital Signs Date Time Temp Pulse Resp B/P (MAP) Pulse Ox O2 Delivery O2 Flow Rate FiO2 05/04/18 09:00 Room Air 05/04/18 08:31 80 122/81 05/04/18 08:00 98.1 80 19 122/81 (95) 96 05/04/18 04:00 97.8 79 19 124/84 (97) 95 05/04/18 00:00 98.4 67 19 108/68 (81) 94 05/03/18 21:00 Room Air 05/03/18 20:00 98.4 69 19 122/67 (85) 95 05/03/18 16:00 97.7 20 114/76 (89) 95 Height (Feet): 5 Height (Inches): 10.00 Weight (Pounds): 168 Objective General: NAD, irritable HEENT: NCAT, right eye with large ulcer no surrounding erythema or purulence but scar and some necrotic tissue present, left eye - visible cataract, glassy/ hazy appearance Respiratory: CATB, No W/C Cardiovascular no edema, tachycardia Gastrointestinal: normal bowel sounds, non tender, soft Current Medications Medications (Trade) Dose Ordered Sig/Jordi Route PRN Reason Start Time Stop Time Status Last Admin Dose Admin Amlodipine Besylate (Norvasc) 5 mg DAILY ORAL 04/14/18 09:00 05/14/18 08:59 05/04/18 08:31 Ascorbic Acid (Vitamin C) 500 mg DAILY ORAL 04/14/18 09:00 05/14/18 08:59 05/04/18 08:31 Aspirin (ASA) 81 mg DAILY ORAL 04/14/18 09:00 05/14/18 08:59 05/04/18 08:31 Famotidine (Pepcid) 20 mg BID ORAL 04/18/18 18:00 05/18/18 17:59 05/04/18 08:31 Heparin Sodium (Porcine) (Heparin 5000 units/ml) 5,000 units EVERY 12 HOURS SUBQ 04/14/18 09:00 05/14/18 08:59 05/01/18 00:29 Lorazepam (Ativan) 1 mg Q6H PRN ORAL For Anxiety 05/01/18 19:00 05/08/18 18:59 05/04/18 08:31 Magnesium Oxide (Mag-Ox 400mg) 400 mg THREE TIMES A DAY ORAL 04/20/18 13:00 05/20/18 12:59 05/04/18 08:31 Multivitamins (Multivitamins) 1 tab DAILY ORAL 04/14/18 09:00 05/14/18 08:59 05/04/18 08:31 Olanzapine (ZyPREXA) 10 mg TID ORAL 04/25/18 18:00 05/25/18 17:59 05/04/18 08:40 Phosphorus (Phospha 250 Neutral) 500 mg THREE TIMES A DAY ORAL 04/20/18 13:00 05/20/18 12:59 05/04/18 08:31 Quetiapine Fumarate (SEROquel) 150 mg EVERY 8 HOURS ORAL 04/21/18 06:00 05/21/18 05:59 05/04/18 05:21 Tamsulosin HCl (Flomax) 0.4 mg BEDTIME ORAL 04/16/18 21:00 05/16/18 20:59 05/01/18 21:25 Carmella Spring M.D. May 04, 2018 15:30
--- NOTE | 2018-05-04 15:38 | NUR ---
NURSE NOTES: Called [facility], on hold for 15 minutes, no answer from any nurse.
--- NOTE | 2018-05-04 16:19 | NUR ---
NURSE NOTES: Called Report to ANISH Blunt at [facility]. Completed belongings list, pt is blind and unable to sign, all belongings in pt's bags at bedside, cleaned right eye wound as much as possible, but pt began shouting, "Get the fuck out of here bitch."
--- NOTE | 2018-05-04 17:00 | Cardiac Electrophysiology PN ---
Assessment/Plan Assessment/Plan 1. Sinus tachycardia. Due to anxiety and infection. HR better 80s 2. Hypertension, on Norvasc 5 mg daily. 3. Schizophrenia. 4. Right facial basal cell carcinoma, status post surgery with necrotic skin. 5. Dysphagia, resolved, followup with Dr. Ferugson. RONNIE RN DC today Subjective Subjective No events. Transfer to [place] pending Objective Last 24 Hour Vital Signs Date Time Temp Pulse Resp B/P (MAP) Pulse Ox O2 Delivery O2 Flow Rate FiO2 05/04/18 09:00 Room Air 05/04/18 08:31 80 122/81 05/04/18 08:00 98.1 80 19 122/81 (95) 96 05/04/18 04:00 97.8 79 19 124/84 (97) 95 05/04/18 00:00 98.4 67 19 108/68 (81) 94 05/03/18 21:00 Room Air 05/03/18 20:00 98.4 69 19 122/67 (85) 95 Intake and Output 05/03/18 05/04/18 19:00 07:00 Intake Total 600 ml 250 ml Output Total 1100 ml Balance -500 ml 250 ml Intake Oral 600 ml 250 ml Output Urine Total 1100 ml # Voids 2 Objective HEAD AND NECK: No JVD. The right side of his face has a scar. LUNGS: Clear CARDIOVASCULAR: RRR. No GRM ABDOMEN: Soft EXTREMITIES: No edema. Teto Branch MD May 04, 2018 17:00
--- NOTE | 2018-05-04 17:54 | NUR ---
NURSE NOTES: Pt has been non compliant, and belligerently shouting, and cussing at staff for most of the day. Took AM medication, but refused all other medication today. Attempted to give pt medications at 1700, pt stated he wanted water, crushed meds and put in water, including Ativan 1 mg as has PRN order. Pt has refused to take the water since. EMS services here to discharge pt. Pt is refusing to be touched and is attempting to hit staff and EMS and cussing. Asked Dr. Davis for one time order for IM Ativan so pt can be transported to [place]. Addendum: 05/04/18 at 1801 by TREVOR LEDEZMA RN NURSE NOTES: Left message for Dr. Davis for one time Ativan IM order Addendum: 05/04/18 at 1802 by TREVOR LEDEZMA RN NURSE NOTES: All 1800 meds not taken by pt, wasted in [place].
[2018-05-04] MEDS ORDERED: LORazepam Inj 2mg/ml 1ml IM SCH (18:19)
--- NOTE | 2018-05-04 18:39 | NUR ---
NURSE NOTES: Asked Dr. Blackmon for IM Ativan, ordered 1mg IM Ativan once. Given to pt, pt spit on staff during injection. 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
--- NOTE | 2018-05-04 19:13 | NUR ---
HAND-OFF: Report given to ANISH Cedeño and ANISH Crowell.
[2018-05-04 20:00] VITALS: BP 138/80
[2018-05-04] MEDS: Tamsulosin 0.4mg cap ORAL SCH (21:00)
--- NOTE | 2018-05-04 21:30 | NUR ---
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 Patient became combative, spitting, verbally abusive to staff, refusing to go. Charged nurse made aware. Contacted Dr Higgins and made aware, okay to stay overnight.
--- NOTE | 2018-05-04 21:33 | NUR ---
NURSE NOTES: Contacted Dr Blackmon for prn anxiety medication. Awaiting for callback.
[2018-05-05] VITALS: BP 120/92
[2018-05-05 04:00] VITALS: BP 122/78
--- NOTE | 2018-05-05 07:15 | NUR ---
HAND-OFF: Report given to Bella OCONNELL.
--- NOTE | 2018-05-05 07:40 | General Progress Note ---
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 SNOMED: 50723591 (2) Dehydration ICD Codes: E86.0 - Dehydration SNOMED: 82077723 (3) Basal cell carcinoma ICD Codes: C44.91 - Basal cell carcinoma of skin, unspecified SNOMED: 592530349 (4) Generalized weakness ICD Codes: R53.1 - Weakness SNOMED: 12062476 (5) Cellulitis and abscess of face ICD Codes: L03.211 - Cellulitis of face; L02.01 - Cutaneous abscess of face SNOMED: 339323418 (6) Severe malnutrition ICD Codes: E43 - Unspecified severe protein-calorie malnutrition SNOMED: 28885809 (7) Failure to thrive in adult ICD Codes: R62.7 - Adult failure to thrive SNOMED: 204166967 (8) Periorbital swelling ICD Codes: H57.8 - Periorbital swelling SNOMED: 838645874 (9) Dysphasia ICD Codes: R47.02 - Dysphasia SNOMED: 46893535 (10) HTN (hypertension) ICD Codes: I10 - Essential (primary) hypertension SNOMED: 90236771 (11) UTI (urinary tract infection) ICD Codes: N39.0 - Urinary tract infection, site not specified SNOMED: 29470506 Status: stable, progressing Assessment/Plan pt diet abx prn cbc bmp am dc if clear Subjective Constitutional: Reports: weakness Allergies: Coded Allergies: BENZTROPINE (Unverified Allergy, Unknown, 02/22/14) HALOPERIDOL (Unverified Allergy, Unknown, 02/22/14) PENICILLINS (Unverified Allergy, Unknown, 04/14/18) tolerated Ceftriaxone 06/2017 All Systems: reviewed and negative except above Subjective sleepy calm Objective Last 24 Hour Vital Signs Date Time Temp Pulse Resp B/P (MAP) Pulse Ox O2 Delivery O2 Flow Rate FiO2 05/05/18 04:00 97.3 76 19 122/78 (93) 95 05/05/18 00:00 97.2 94 20 120/92 (101) 96 05/04/18 21:00 Room Air 05/04/18 20:00 98.1 88 19 138/80 (99) 96 05/04/18 09:00 Room Air 05/04/18 08:31 80 122/81 05/04/18 08:00 98.1 80 19 122/81 (95) 96 Intake and Output 05/04/18 05/05/18 19:00 07:00 Intake Total 800 ml 360 ml Balance 800 ml 360 ml Intake Oral 800 ml 360 ml # Voids 2 2 Height (Feet): 5 Height (Inches): 10.00 Weight (Pounds): 168 General Appearance: lethargic EENT: normal ENT inspection Neck: normal alignment Cardiovascular: normal peripheral pulses, normal rate, regular rhythm Respiratory/Chest: chest wall non-tender, lungs clear, normal breath sounds Abdomen: normal bowel sounds, non tender, soft Extremities: normal inspection Edema: no edema noted Arm (L), no edema noted Arm (R), no edema noted Leg (L), no edema noted Leg (R), no edema noted Pedal (L), no edema noted Pedal (R), no edema noted Generalized Neurologic: motor weakness Skin: normal pigmentation, warm/dry Julio Higgins DO May 05, 2018 07:40
[2018-05-05 08:00] VITALS: BP 128/78
--- NOTE | 2018-05-05 08:00 | NUR ---
NURSE NOTES: pt awake alert, no distress. call light within reach. compliant with meds. due meds given as ordered. will monitor.
[2018-05-05] MEDS: Heparin 5000 units/ml inj SUBQ SCH ×2 (08:15→21:00)
[2018-05-05] MEDS: Ascorbic Acid 500mg tab ORAL SCH (08:15)
[2018-05-05] MEDS: Phospha 250 Neutral tab ORAL SCH ×4 (08:16→18:32)
[2018-05-05] MEDS: OLANZapine 10mg tab ORAL SCH ×4 (08:16→18:32)
[2018-05-05] MEDS: Magnesium Oxide 400mg tab ORAL SCH ×4 (08:16→18:32)
[2018-05-05] MEDS: Aspirin Baby 81mg ORAL SCH (08:16)
--- NOTE | 2018-05-05 11:18 | GI Progress Note ---
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 Ferguson Assessment/Plan psych f/u defer PEG, the patient has shown improvement in caloric intake and shows no signs of dysphagia or risk for aspiration. Patient on regular diet push p.o. One-to-one feeder IV/p.o. hydration Antibiotics PPI Follow-up labs The patient was seen and examined at bedside and all new and available data was reviewed in the patients chart. I agree with the above findings, impression and plan. (Patient seen earlier today. Signature stamp does not reflect patient encounter time.). - Juliocesar Ferguson MD Subjective Subjective Limited Objective Last 24 Hour Vital Signs Date Time Temp Pulse Resp B/P (MAP) Pulse Ox O2 Delivery O2 Flow Rate FiO2 05/05/18 08:17 76 128/78 05/05/18 08:08 Room Air 05/05/18 08:00 97.3 78 19 128/78 (95) 95 05/05/18 04:00 97.3 76 19 122/78 (93) 95 05/05/18 00:00 97.2 94 20 120/92 (101) 96 05/04/18 21:00 Room Air 05/04/18 20:00 98.1 88 19 138/80 (99) 96 Intake and Output 05/04/18 05/05/18 18:59 06:59 Intake Total 800 ml 360 ml Balance 800 ml 360 ml Intake Oral 800 ml 360 ml # Voids 2 2 Height (Feet): 5 Height (Inches): 10.00 Weight (Pounds): 168 General Appearance: WD/WN, no apparent distress, alert Cardiovascular: normal rate Respiratory/Chest: normal breath sounds, no respiratory distress Abdominal Exam: normal bowel sounds, non tender, soft Extremities: non-tender Objective Legally blind Roxanna Saavedra NP May 05, 2018 11:18
--- NOTE | 2018-05-05 12:04 | NUR ---
NURSE NOTES: pt left for [facility] in stable condition, no iv access.
--- NOTE | 2018-05-05 14:13 | Nephrology Progress Note ---
Assessment/Plan Problem List: (1) Dehydration (2) HTN (hypertension) (3) Failure to thrive in adult (4) Schizophrenia Assessment WBC now wnl (1) Dysphasia (2) Encounter for PEG (percutaneous endoscopic gastrostomy) (3) Schizophrenia (4) Failure to thrive in adult (5) Generalized weakness (6) Severe malnutrition (7) Dehydration (8) Schizophrenia (9) HTN (10) Legally Blind Plan Flomax Psych mangement per consultants ? DC planning Subjective ROS Limited/Unobtainable: No Interval Events/Complaints seen at 10 am Objective Objective Last 24 Hour Vital Signs Date Time Temp Pulse Resp B/P (MAP) Pulse Ox O2 Delivery O2 Flow Rate FiO2 05/05/18 08:17 76 128/78 05/05/18 08:08 Room Air 05/05/18 08:00 97.3 78 19 128/78 (95) 95 05/05/18 04:00 97.3 76 19 122/78 (93) 95 05/05/18 00:00 97.2 94 20 120/92 (101) 96 05/04/18 21:00 Room Air 05/04/18 20:00 98.1 88 19 138/80 (99) 96 Intake and Output 05/04/18 05/05/18 18:59 06:59 Intake Total 800 ml 360 ml Balance 800 ml 360 ml Intake Oral 800 ml 360 ml # Voids 2 2 Height (Feet): 5 Height (Inches): 10.00 Weight (Pounds): 168 General Appearance: no apparent distress Objective no change Al Roper MD May 05, 2018 14:13
--- NOTE | 2018-05-05 14:31 | Cardiac Electrophysiology PN ---
Assessment/Plan Assessment/Plan 1. Sinus tachycardia. Due to anxiety and infection.Resolved 2. Hypertension, on Norvasc 5 mg daily. 3. Schizophrenia. 4. Right facial basal cell carcinoma, status post surgery with necrotic skin. 5. Dysphagia, resolved, followup with Dr. Ferguson. RONNIE RN DC today Subjective Subjective No events. Transfer to [place] pending today Objective Last 24 Hour Vital Signs Date Time Temp Pulse Resp B/P (MAP) Pulse Ox O2 Delivery O2 Flow Rate FiO2 05/05/18 08:17 76 128/78 05/05/18 08:08 Room Air 05/05/18 08:00 97.3 78 19 128/78 (95) 95 05/05/18 04:00 97.3 76 19 122/78 (93) 95 05/05/18 00:00 97.2 94 20 120/92 (101) 96 05/04/18 21:00 Room Air 05/04/18 20:00 98.1 88 19 138/80 (99) 96 Intake and Output 05/04/18 05/05/18 18:59 06:59 Intake Total 800 ml 360 ml Balance 800 ml 360 ml Intake Oral 800 ml 360 ml # Voids 2 2 Objective HEAD AND NECK: No JVD. The right side of his face has a scar. LUNGS: Clear CARDIOVASCULAR: RRR. No GRM ABDOMEN: Soft EXTREMITIES: No edema. Teto Branch MD May 05, 2018 14:31
[2018-05-05 16:00] VITALS: BP 116/72
--- NOTE | 2018-05-05 16:00 | Infectious Diseases Prog Note ---
Assessment/Plan Assessment/Plan Sepsis- ?source- r/o UTI, PNA- now resolved Afebrile Leukocytosis Increased 04/27/18 , now resolved -CXR 04/28: No acute findings Unclear source no sign of active infection resection of carcinoma from right side of face/eye Wnd Cx : GPC -hx of superinfected necrotic mass and possible micro abscess s/p Tx 06/2017 -wound cx MRSA, diphterouids, ESBL Proteus 04/14/19 Wound Cx Providencia and MRSA FTT COPD dysphasia schizophrenia HTN MDD legally blind hx of VRE/MRSA colonization Plan: - Monitor off abx -Pt was refusing labs and antibiotics; today leukocytosis resolved. - 04/24/18 SP PO Bactrim DS BID - 04/20/18 SP empiric Azactam , Flagyl and IV Vanco d# 6/10 - 04/15/18 SP Ceftriaxone d# 2 -Monitor CBC/CMP, temperatures Subjective Allergies: Coded Allergies: BENZTROPINE (Unverified Allergy, Unknown, 02/22/14) HALOPERIDOL (Unverified Allergy, Unknown, 02/22/14) PENICILLINS (Unverified Allergy, Unknown, 04/14/18) tolerated Ceftriaxone 06/2017 Subjective afebrile off abx no leukocytosis Objective Vital Signs Last 24 Hour Vital Signs Date Time Temp Pulse Resp B/P (MAP) Pulse Ox O2 Delivery O2 Flow Rate FiO2 05/05/18 08:17 76 128/78 05/05/18 08:08 Room Air 05/05/18 08:00 97.3 78 19 128/78 (95) 95 05/05/18 04:00 97.3 76 19 122/78 (93) 95 05/05/18 00:00 97.2 94 20 120/92 (101) 96 05/04/18 21:00 Room Air 05/04/18 20:00 98.1 88 19 138/80 (99) 96 Height (Feet): 5 Height (Inches): 10.00 Weight (Pounds): 168 Objective General: NAD, irritable HEENT: NCAT, right eye with large ulcer no surrounding erythema or purulence but scar and some necrotic tissue present, left eye - visible cataract, glassy/ hazy appearance Respiratory: CATB, No W/C Cardiovascular no edema, tachycardia Gastrointestinal: normal bowel sounds, non tender, soft Current Medications Medications (Trade) Dose Ordered Sig/Jordi Route PRN Reason Start Time Stop Time Status Last Admin Dose Admin Amlodipine Besylate (Norvasc) 5 mg DAILY ORAL 04/14/18 09:00 05/14/18 08:59 05/05/18 08:17 Ascorbic Acid (Vitamin C) 500 mg DAILY ORAL 04/14/18 09:00 05/14/18 08:59 05/05/18 08:15 Aspirin (ASA) 81 mg DAILY ORAL 04/14/18 09:00 05/14/18 08:59 05/05/18 08:16 Famotidine (Pepcid) 20 mg BID ORAL 04/18/18 18:00 05/18/18 17:59 05/05/18 08:16 Heparin Sodium (Porcine) (Heparin 5000 units/ml) 5,000 units EVERY 12 HOURS SUBQ 04/14/18 09:00 05/14/18 08:59 05/05/18 08:15 Lorazepam (Ativan) 1 mg Q6H PRN ORAL For Anxiety 05/01/18 19:00 05/08/18 18:59 05/04/18 08:31 Magnesium Oxide (Mag-Ox 400mg) 400 mg THREE TIMES A DAY ORAL 04/20/18 13:00 05/20/18 12:59 05/05/18 08:16 Multivitamins (Multivitamins) 1 tab DAILY ORAL 04/14/18 09:00 05/14/18 08:59 05/05/18 08:16 Olanzapine (ZyPREXA) 10 mg TID ORAL 04/25/18 18:00 05/25/18 17:59 05/05/18 08:16 Phosphorus (Phospha 250 Neutral) 500 mg THREE TIMES A DAY ORAL 04/20/18 13:00 05/20/18 12:59 05/05/18 08:16 Quetiapine Fumarate (SEROquel) 150 mg EVERY 8 HOURS ORAL 04/21/18 06:00 05/21/18 05:59 05/05/18 06:05 Tamsulosin HCl (Flomax) 0.4 mg BEDTIME ORAL 04/16/18 21:00 05/16/18 20:59 05/01/18 21:25 Carmella Spring M.D. May 05, 2018 16:00
--- NOTE | 2018-05-05 16:37 | NUR ---
NURSE NOTES: pt came back from [facility]. They were unable to accept the pt due to pt's agitation worsening. Breathing regular and unlabored. denies any pain. no s/s of respiratory distress noted. Dr. alexander made aware of pt's transfer back to unit and okay to continue same order. pt refused to to insert IV heplock and check body assessment. Bed in lowest position. call light within reach at all time. will continue to monitor
[2018-05-05] MEDS ORDERED: LORazepam 1mg tab ORAL PRN (18:16)
--- NOTE | 2018-05-05 19:31 | NUR ---
HAND-OFF: Report given to ANISH Haro.
--- NOTE | 2018-05-05 19:33 | NUR ---
NURSE NOTES: Received report from Tyra Cedeno RN. Patient sleeping. On room air, no signs of distress or labored breathing. No IV access, MD aware. Will continue to monitor.
--- NOTE | 2018-05-05 19:52 | General Progress Note ---
Assessment/Plan Assessment/Plan # Leukocytosis. Secondary to underlying infection, sepsis of R eye/hx malignancy that side --> Monitor and trend wbc for improvement -->16.6-->23.0-->31.5-->9.2-->11.2-->22.9-->10 --> Peripheral smear has been reviewed, no blasts noted --> Medications have been reviewed --> Imaging has been reviewed --> cont on abx, empiric treatment --> per ID management # Carcinoma resection of from right side of face/eye --> as per outpatient onc # Anemia of chronic disease --> anemia panel has been reviewed --> trend hgb 12.8-->10.2-->10 # FTT --> refusing care --> defer peg tube given improvement in po intake --> calorie counts and weights weekly --> mirtazpine as needed # Sepsis. improved # H/O superinfected necrotic mass and possible micro abscess s/p Tx 06/2017 # Wound. # COPD. # Dysphasia # Schizophrenia # HTN. # Legally blind Time and date note entered in EMR does not reflect time and date of encounter. GREATLY APPRECIATE CONSULTATION. Subjective Constitutional: Denies: no symptoms, chills, diaphoresis, fever, malaise, weakness, other HEENT: Denies: no symptoms, eye pain, blurred vision, tearing, double vision, ear pain, ear discharge, nose pain, nose congestion, throat pain, throat swelling, mouth pain, mouth swelling, other Respiratory: Denies: no symptoms, cough, orthopnea, shortness of breath, SOB with excertion, SOB at rest, sputum, stridor, wheezing, other Gastrointestinal/Abdominal: Denies: no symptoms, abdomen distended, abdominal pain, black stools, tarry stools, blood in stool, constipated, diarrhea, difficulty swallowing, nausea, poor appetite, poor fluid intake, rectal bleeding , vomiting, other Genitourinary: Denies: no symptoms, burning, discharge, frequency, flank pain, hematuria, incontinence, pain, urgency, other Neurologic/Psychiatric: Denies: no symptoms, anxiety, depressed, emotional problems, headache, numbness, paresthesia, pre-existing deficit, seizure, tingling, tremors, weakness, other Endocrine: Denies: no symptoms, excessive sweating, flushing, intolerance to cold, intolerance to heat, increased hunger, increased thirst, increased urine, unexplained weight gain, unexplained weight loss, other Hematologic/Lymphatic: Denies: no symptoms, anemia, easy bleeding, easy bruising, other Allergies: Coded Allergies: BENZTROPINE (Unverified Allergy, Unknown, 02/22/14) HALOPERIDOL (Unverified Allergy, Unknown, 02/22/14) PENICILLINS (Unverified Allergy, Unknown, 04/14/18) tolerated Ceftriaxone 06/2017 Subjective 04/15: Pt awake and agitated. No acute events. Pt refusing meds. 04/16: wbc severely elevated, seen by Id, on broad spectrum antifungals, foul language, very aggressive 04/18: no events, mumbling, minimally conversive, no fevers, down on ivf 04/19: pt is awake and resting in bed. refusing care, aggressive, no events 04/20: Pt is awake and alert, refusing care, minimally conversive, on abx, wbc have improved. 04/21: Pt is awake and resting in bed, aggressive, mumbling, 04/22: Pt is resting in bed. PEG has been defered, the patient has shown improvement in caloric intake and shows no signs of dysphagia or risk for aspiration. 04/23: Pt is seen in the room, resting in bed, refusing care, on abx, pending labs 17/: No events, has been agitated overnight, refusing care 04/25: Pt is awake and resting in bed, refusing labs, agitated, screaming, refusing care 04/26: no major events, no fevers or chills, no chest pain or sob 04/27: pt is seen by bedside, awake and comfortable, wbc is at 22.9 today. 04/28: peg has been deferred, gi recs reviewed, no events, slightly agitated 04/29: no events, refusing care, no change other, remains aggressive, says "don' t touch me" 04/30: continues to cuss out, rn by bedside with conservator and able to chnage wound on eye R 05/01: Pt is awake and calm, alert oriented x1, remains afebrile off abx and leukocytosis resolved 05/02: Pt is seen by bedside, awake and calm, no events. pending labs 05/03: Pt is alert and oriented x1, remains afebrile off abx and leukocytosis resolved 05/04: accepted at [facility] as early as today 05/05: pt came back from [facility]. They were unable to accept the pt due to pt's agitation worsenin Objective Last 24 Hour Vital Signs Date Time Temp Pulse Resp B/P (MAP) Pulse Ox O2 Delivery O2 Flow Rate FiO2 05/05/18 16:00 97.8 82 19 116/72 (87) 96 05/05/18 08:17 76 128/78 05/05/18 08:08 Room Air 05/05/18 08:00 97.3 78 19 128/78 (95) 95 05/05/18 04:00 97.3 76 19 122/78 (93) 95 05/05/18 00:00 97.2 94 20 120/92 (101) 96 05/04/18 21:00 Room Air 05/04/18 20:00 98.1 88 19 138/80 (99) 96 Intake and Output 05/04/18 05/05/18 19:00 07:00 Intake Total 800 ml 360 ml Balance 800 ml 360 ml Intake Oral 800 ml 360 ml # Voids 2 2 Height (Feet): 5 Height (Inches): 10.00 Weight (Pounds): 168 Objective Vitals: Have been reviewed General Appearance: alert, agitated Head: normocephalic, atraumatic Eyes: right eye abnormal pupil - right eye has patch which covers the right temporal area of face as well from cancer ressection; left eye other - visible cataract, glassy/hazy appearance, unchanged ENT: hearing grossly normal, other Neck: full range of motion Respiratory: chest non-tender, lungs clear Cardiovascular no edema, tachycardia Gastrointestinal: normal bs, non tender, soft MSK: back normal, non-tender, bilateral hand contractures Skin: normal color, no rash, warm/dry Jr Daly MD May 05, 2018 19:52
[2018-05-05 20:00] VITALS: BP 104/61
[2018-05-05] MEDS: Tamsulosin 0.4mg cap ORAL SCH (21:00)
[2018-05-06] VITALS: BP 123/73
--- NOTE | 2018-05-06 07:29 | NUR ---
HAND-OFF: Report given to FARHEEN Pressley.
[2018-05-06 08:00] VITALS: BP 115/74
--- NOTE | 2018-05-06 08:00 | NUR ---
NURSE NOTES: Received patient A/A/Ox4, calm and keep comfotable in bed. able to verbalize needs. remained to be impulsive and has episodes of using foul words. HOB elevated for adequate ventilation. siderails are up x3. call light is within reach. will cont to monitor.
[2018-05-06] MEDS: Aspirin Baby 81mg ORAL SCH (08:58)
[2018-05-06] MEDS: Ascorbic Acid 500mg tab ORAL SCH (08:58)
[2018-05-06] MEDS: Magnesium Oxide 400mg tab ORAL SCH ×3 (08:58→17:17)
[2018-05-06] MEDS: OLANZapine 10mg tab ORAL SCH ×3 (08:59→17:17)
[2018-05-06] MEDS: Phospha 250 Neutral tab ORAL SCH ×3 (08:59→17:17)
[2018-05-06] MEDS: Heparin 5000 units/ml inj SUBQ SCH ×2 (09:00→20:25)
--- NOTE | 2018-05-06 10:12 | NUR ---
SS note Chart reviewed; No SW needs identified at this time. Patient plans to discharge to SNF when medically cleared.
--- NOTE | 2018-05-06 10:55 | Nephrology Progress Note ---
Assessment/Plan Problem List: (1) Dehydration (2) HTN (hypertension) (3) Failure to thrive in adult (4) Schizophrenia Assessment WBC now wnl (1) Dysphasia (2) Encounter for PEG (percutaneous endoscopic gastrostomy) (3) Schizophrenia (4) Failure to thrive in adult (5) Generalized weakness (6) Severe malnutrition (7) Dehydration (8) Schizophrenia (9) HTN (10) Legally Blind Plan Flomax Psych mangement per consultants ? DC planning Subjective ROS Limited/Unobtainable: No Constitutional: Reports: malaise Objective Objective Last 24 Hour Vital Signs Date Time Temp Pulse Resp B/P (MAP) Pulse Ox O2 Delivery O2 Flow Rate FiO2 05/06/18 09:00 Room Air 05/06/18 08:59 101 115/74 05/06/18 08:00 97.8 101 17 115/74 (88) 97 05/06/18 00:00 97.2 61 19 123/73 (90) 97 05/05/18 21:00 Room Air 05/05/18 20:00 98.1 60 19 104/61 (75) 97 05/05/18 16:00 97.8 82 19 116/72 (87) 96 Intake and Output 05/05/18 05/06/18 19:00 07:00 Intake Total 240 ml Balance 240 ml Intake Oral 240 ml # Voids 1 Height (Feet): 5 Height (Inches): 10.00 Weight (Pounds): 168 General Appearance: no apparent distress Objective no change Al Roper MD May 06, 2018 10:55
--- NOTE | 2018-05-06 10:57 | Infectious Diseases Prog Note ---
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 - 04/24/18 SP PO Bactrim DS BID - 04/20/18 SP empiric Azactam , Flagyl and IV Vanco d# 6/10 - 04/15/18 SP Ceftriaxone d# 2 -Monitor CBC/CMP, temperatures Subjective Allergies: Coded Allergies: BENZTROPINE (Unverified Allergy, Unknown, 02/22/14) HALOPERIDOL (Unverified Allergy, Unknown, 02/22/14) PENICILLINS (Unverified Allergy, Unknown, 04/14/18) tolerated Ceftriaxone 06/2017 Subjective afebrile Objective Vital Signs Last 24 Hour Vital Signs Date Time Temp Pulse Resp B/P (MAP) Pulse Ox O2 Delivery O2 Flow Rate FiO2 05/06/18 09:00 Room Air 05/06/18 08:59 101 115/74 05/06/18 08:00 97.8 101 17 115/74 (88) 97 05/06/18 00:00 97.2 61 19 123/73 (90) 97 05/05/18 21:00 Room Air 05/05/18 20:00 98.1 60 19 104/61 (75) 97 05/05/18 16:00 97.8 82 19 116/72 (87) 96 Height (Feet): 5 Height (Inches): 10.00 Weight (Pounds): 168 HEENT: anicteric Respiratory/Chest: no respiratory distress Cardiovascular: regular rhythm Abdomen: non distended Current Medications Medications (Trade) Dose Ordered Sig/Jordi Route PRN Reason Start Time Stop Time Status Last Admin Dose Admin Amlodipine Besylate (Norvasc) 5 mg DAILY ORAL 05/06/18 09:00 05/14/18 08:59 05/06/18 08:59 Ascorbic Acid (Vitamin C) 500 mg DAILY ORAL 05/06/18 09:00 05/14/18 08:59 05/06/18 08:58 Aspirin (ASA) 81 mg DAILY ORAL 05/06/18 09:00 05/14/18 08:59 05/06/18 08:58 Famotidine (Pepcid) 20 mg BID ORAL 05/05/18 18:00 05/18/18 17:59 05/06/18 08:58 Heparin Sodium (Porcine) (Heparin 5000 units/ml) 5,000 units EVERY 12 HOURS SUBQ 05/05/18 21:00 05/14/18 08:59 Lorazepam (Ativan) 1 mg Q6H PRN ORAL For Anxiety 05/05/18 18:16 05/08/18 18:15 Magnesium Oxide (Mag-Ox 400mg) 400 mg THREE TIMES A DAY ORAL 05/05/18 18:00 05/20/18 17:59 05/06/18 08:58 Multivitamins (Multivitamins) 1 tab DAILY ORAL 05/06/18 09:00 05/14/18 08:59 05/06/18 08:58 Olanzapine (ZyPREXA) 10 mg TID ORAL 05/05/18 18:00 05/25/18 17:59 05/06/18 08:59 Phosphorus (Phospha 250 Neutral) 500 mg THREE TIMES A DAY ORAL 05/05/18 18:00 05/20/18 17:59 05/06/18 08:59 Quetiapine Fumarate (SEROquel) 150 mg EVERY 8 HOURS ORAL 05/05/18 22:00 05/21/18 05:59 05/06/18 06:35 Tamsulosin HCl (Flomax) 0.4 mg BEDTIME ORAL 05/05/18 21:00 05/16/18 20:59 Juan Manuel Gallardo MD May 06, 2018 10:57
--- NOTE | 2018-05-06 12:00 | NUR ---
NURSE NOTES: Patient was able to cooperate with bedside care. He intake ensure and take meds without any problems @ this time. will cont to monitor.
[2018-05-06 12:02] VITALS: BP 118/61
--- NOTE | 2018-05-06 12:44 | NUR ---
VP SOFTWARE ENGINEERINGKEY FILER 05/06/2018 SI: FAILURE TO THRIVE T 98.9 HR 64 RR 18 B/P 118/61 SATS 95% ON RA NO LABS TODAY IS: ZYPREXA PO SEROQUEL PO PEPCID PO HEPARIN SUBQ MED/SURG STATUS
[2018-05-06 16:07] VITALS: BP 121/63
--- NOTE | 2018-05-06 18:19 | NUR ---
NURSE NOTES: patient cooperates with care and able to feed patient without any aggression. Able to cleanse and change the gauze on the right face. kept hob elevated. siderails are up x3. call light is within reach. will cont to monitor.
--- NOTE | 2018-05-06 18:52 | General Progress Note ---
Assessment/Plan Problem List: (1) Cancer ICD Codes: C80.1 - Malignant (primary) neoplasm, unspecified SNOMED: 749299919 (2) Generalized weakness ICD Codes: R53.1 - Weakness SNOMED: 44693388 (3) Severe malnutrition ICD Codes: E43 - Unspecified severe protein-calorie malnutrition SNOMED: 43206305 (4) Failure to thrive in adult ICD Codes: R62.7 - Adult failure to thrive SNOMED: 196016286 (5) Poor fluid intake ICD Codes: R63.8 - Other symptoms and signs concerning food and fluid intake SNOMED: 257252336 (6) Schizophrenia ICD Codes: F20.9 - Schizophrenia, unspecified SNOMED: 92570622 Status: progressing Assessment/Plan FTT poor appetite anemia malnurished cancer afebrile reviewed chart and labs Subjective ROS Limited/Unobtainable: Yes Allergies: Coded Allergies: BENZTROPINE (Unverified Allergy, Unknown, 02/22/14) HALOPERIDOL (Unverified Allergy, Unknown, 02/22/14) PENICILLINS (Unverified Allergy, Unknown, 04/14/18) tolerated Ceftriaxone 06/2017 Objective Last 24 Hour Vital Signs Date Time Temp Pulse Resp B/P (MAP) Pulse Ox O2 Delivery O2 Flow Rate FiO2 05/06/18 16:07 98.6 66 18 121/63 (82) 97 05/06/18 12:02 98.9 64 18 118/61 (80) 95 05/06/18 09:00 Room Air 05/06/18 08:59 101 115/74 05/06/18 08:00 97.8 101 17 115/74 (88) 97 05/06/18 00:00 97.2 61 19 123/73 (90) 97 05/05/18 21:00 Room Air 05/05/18 20:00 98.1 60 19 104/61 (75) 97 Intake and Output 05/05/18 05/06/18 18:59 06:59 Intake Total 240 ml Balance 240 ml Intake Oral 240 ml # Voids 1 Height (Feet): 5 Height (Inches): 10.00 Weight (Pounds): 168 Cardiovascular: regular rhythm Respiratory/Chest: lungs clear Cady Berg MD May 06, 2018 18:52
--- NOTE | 2018-05-06 19:09 | Cardiac Electrophysiology PN ---
Assessment/Plan Assessment/Plan 1. Sinus tachycardia. Due to anxiety and infection.Resolved 2. Hypertension, on Norvasc 5 mg daily. 3. Schizophrenia. 4. Right facial basal cell carcinoma, status post surgery with necrotic skin. 5. Dysphagia, resolved, fFU with Dr. Ferguson. RONNIE RN Subjective Subjective No new events. DC planning in progress Objective Last 24 Hour Vital Signs Date Time Temp Pulse Resp B/P (MAP) Pulse Ox O2 Delivery O2 Flow Rate FiO2 05/06/18 16:07 98.6 66 18 121/63 (82) 97 05/06/18 12:02 98.9 64 18 118/61 (80) 95 05/06/18 09:00 Room Air 05/06/18 08:59 101 115/74 05/06/18 08:00 97.8 101 17 115/74 (88) 97 05/06/18 00:00 97.2 61 19 123/73 (90) 97 05/05/18 21:00 Room Air 05/05/18 20:00 98.1 60 19 104/61 (75) 97 Intake and Output 05/05/18 05/06/18 18:59 06:59 Intake Total 240 ml Balance 240 ml Intake Oral 240 ml # Voids 1 Objective HEAD AND NECK: No JVD. The right side of his face has a scar. LUNGS: Clear CARDIOVASCULAR: RRR. No GRM ABDOMEN: Soft EXTREMITIES: No edema. Teto Branch MD May 06, 2018 19:09
[2018-05-06 20:00] VITALS: BP 105/68
--- NOTE | 2018-05-06 20:12 | NUR ---
NURSE NOTES: patient received. patient in no acute distress at this time. patient complains of no pain at this time. patient awake and alert x2. patient has no IV MD aware. Urinal at bedside. bed in lowest position and locked. call light within reach. bed alarm on. will continue to monitor.
[2018-05-06] MEDS: Tamsulosin 0.4mg cap ORAL SCH (20:23)
[2018-05-07] VITALS: BP 106/60
[2018-05-07 04:00] VITALS: BP 93/62
--- NOTE | 2018-05-07 07:17 | NUR ---
HAND-OFF: Report given to zackery sargent.
[2018-05-07 08:00] VITALS: BP 118/76
[2018-05-07] MEDS: OLANZapine 10mg tab ORAL SCH ×3 (08:26→17:35)
[2018-05-07] MEDS: Ascorbic Acid 500mg tab ORAL SCH (08:26)
[2018-05-07] MEDS: Magnesium Oxide 400mg tab ORAL SCH ×3 (08:26→17:35)
[2018-05-07] MEDS: Phospha 250 Neutral tab ORAL SCH ×3 (08:28→17:35)
[2018-05-07] MEDS: Aspirin Baby 81mg ORAL SCH (08:28)
[2018-05-07] MEDS: Heparin 5000 units/ml inj SUBQ SCH ×2 (08:29→21:00)
--- NOTE | 2018-05-07 09:00 | NUR ---
NURSE NOTES: received patient A/A/Ox3, periods of forgetfulness. able to follow commands. Consumed 100% breakfast and able to take schedule meds and administered heparin subcut in right deltoid. kept hob elevated. siderails are up x3, call light is within reach. will cont to monitor.
--- NOTE | 2018-05-07 11:10 | NUR ---
NURSE NOTES: sister/conservatorDora came to visit patient. Left a note in the chart for staff's notifications. (kindly refer to chart). will cont to monitor.
--- NOTE | 2018-05-07 11:50 | NUR ---
NURSE NOTES: patient all of sudden change his behavior back from he was, cursing and swearing. Refusing wound drsg change @ this time.No signs of combativeness and harm to himself and others @ this time. will cont to monitor.
--- NOTE | 2018-05-07 12:06 | Nephrology Progress Note ---
Assessment/Plan Problem List: (1) Dehydration (2) HTN (hypertension) (3) Failure to thrive in adult (4) Schizophrenia Assessment WBC now wnl (1) Dysphasia (2) Encounter for PEG (percutaneous endoscopic gastrostomy) (3) Schizophrenia (4) Failure to thrive in adult (5) Generalized weakness (6) Severe malnutrition (7) Dehydration (8) Schizophrenia (9) HTN (10) Legally Blind Plan Flomax Psych mangement per consultants ? DC planning Subjective ROS Limited/Unobtainable: No Constitutional: Reports: malaise Objective Objective Last 24 Hour Vital Signs Date Time Temp Pulse Resp B/P (MAP) Pulse Ox O2 Delivery O2 Flow Rate FiO2 05/07/18 09:00 Room Air 05/07/18 08:28 76 118/76 05/07/18 08:00 98.3 76 18 118/76 (90) 97 05/07/18 04:00 98.0 91 19 93/62 (72) 96 05/07/18 00:00 97.8 69 18 106/60 (75) 96 05/06/18 21:00 Room Air 05/06/18 20:00 97.8 58 19 105/68 (80) 93 05/06/18 16:07 98.6 66 18 121/63 (82) 97 05/06/18 12:02 98.9 64 18 118/61 (80) 95 Intake and Output 05/06/18 05/07/18 19:00 07:00 Intake Total 240 ml Balance 240 ml Intake Oral 240 ml # Voids 1 Height (Feet): 5 Height (Inches): 10.00 Weight (Pounds): 168 General Appearance: no apparent distress Cardiovascular: normal rate Respiratory/Chest: decreased breath sounds Abdomen: soft Objective no change Al Roper MD May 07, 2018 12:06
--- NOTE | 2018-05-07 12:56 | NUR ---
LODGE ATTENDANTCONTENT CHECKER 05/07/2018 SI: FAILURE TO THRIVE T 98.3 HR 76 RR 18 B/P 118/76 SATS 97% ON RA NO LABS TODAY IS: ZYPREXA PO SEROQUEL PO PEPCID PO HEPARIN SUBQ MED/SURG STATUS
--- NOTE | 2018-05-07 15:02 | Cardiac Electrophysiology PN ---
Assessment/Plan Assessment/Plan 1. Sinus tachycardia. Due to anxiety and infection.Resolved 2. Hypertension, on Norvasc 5 mg daily. 3. Schizophrenia. 4. Right facial basal cell carcinoma, status post surgery with necrotic skin. 5. Dysphagia, resolved, FU with Dr. Ferguson. RONNIE RN Subjective Subjective No new events. Placement is spending Objective Last 24 Hour Vital Signs Date Time Temp Pulse Resp B/P (MAP) Pulse Ox O2 Delivery O2 Flow Rate FiO2 05/07/18 09:00 Room Air 05/07/18 08:28 76 118/76 05/07/18 08:00 98.3 76 18 118/76 (90) 97 05/07/18 04:00 98.0 91 19 93/62 (72) 96 05/07/18 00:00 97.8 69 18 106/60 (75) 96 05/06/18 21:00 Room Air 05/06/18 20:00 97.8 58 19 105/68 (80) 93 05/06/18 16:07 98.6 66 18 121/63 (82) 97 Intake and Output 05/06/18 05/07/18 19:00 07:00 Intake Total 240 ml Balance 240 ml Intake Oral 240 ml # Voids 1 Objective HEAD AND NECK: No JVD. The right side of his face has a scar. LUNGS: Clear CARDIOVASCULAR: RRR. No GRM ABDOMEN: Soft EXTREMITIES: No edema. Teto Branch MD May 07, 2018 15:02
--- NOTE | 2018-05-07 15:10 | NUR ---
HAND-OFF: Report given to Amanda.
[2018-05-07] MEDS ORDERED: Miralax 17gm pkt ORAL PRN (16:00)
[2018-05-07] MEDS: Docusate 100mg cap ORAL SCH (17:35)
--- NOTE | 2018-05-07 18:02 | NUR ---
NURSE NOTES: Medication verified with charge nurse MATEUSZ.
--- NOTE | 2018-05-07 19:46 | NUR ---
NURSE NOTES: Medications provided , pt denies experiencing constipation. " I pee all day" Unwilling to accept pt teaching in reference to bowel movements " I know what I am talking about MAAM"
--- NOTE | 2018-05-07 19:51 | NUR ---
HAND-OFF: Report given to Alonzo OCONNELL.
--- NOTE | 2018-05-07 20:00 | NUR ---
NURSE NOTES: Patient received in bed, asleep, no acute distress. Became agitated when woken up for vital signs, started swearing. Will reattempt later. No IV site. Bed locked in low position, bed alarm on. Will continue to monitor.
--- NOTE | 2018-05-07 20:45 | General Progress Note ---
Assessment/Plan Problem List: (1) Cancer ICD Codes: C80.1 - Malignant (primary) neoplasm, unspecified SNOMED: 466264255 (2) Generalized weakness ICD Codes: R53.1 - Weakness SNOMED: 65448831 (3) Severe malnutrition ICD Codes: E43 - Unspecified severe protein-calorie malnutrition SNOMED: 78389133 (4) Failure to thrive in adult ICD Codes: R62.7 - Adult failure to thrive SNOMED: 434806020 (5) Poor fluid intake ICD Codes: R63.8 - Other symptoms and signs concerning food and fluid intake SNOMED: 844426916 (6) Schizophrenia ICD Codes: F20.9 - Schizophrenia, unspecified SNOMED: 41747697 Status: progressing Assessment/Plan weak reviewed chart and labs abd meds poor appetite anemia malnurished cancer Subjective ROS Limited/Unobtainable: Yes Allergies: Coded Allergies: BENZTROPINE (Unverified Allergy, Unknown, 02/22/14) HALOPERIDOL (Unverified Allergy, Unknown, 02/22/14) PENICILLINS (Unverified Allergy, Unknown, 04/14/18) tolerated Ceftriaxone 06/2017 Objective Last 24 Hour Vital Signs Date Time Temp Pulse Resp B/P (MAP) Pulse Ox O2 Delivery O2 Flow Rate FiO2 05/07/18 09:00 Room Air 05/07/18 08:28 76 118/76 05/07/18 08:00 98.3 76 18 118/76 (90) 97 05/07/18 04:00 98.0 91 19 93/62 (72) 96 05/07/18 00:00 97.8 69 18 106/60 (75) 96 05/06/18 21:00 Room Air Intake and Output 05/06/18 05/07/18 18:59 06:59 Intake Total 240 ml Balance 240 ml Intake Oral 240 ml # Voids 1 Height (Feet): 5 Height (Inches): 10.00 Weight (Pounds): 168 Neck: normal alignment Cardiovascular: normal rate Respiratory/Chest: lungs clear Abdomen: soft Cady Berg MD May 07, 2018 20:45
[2018-05-07] MEDS: Tamsulosin 0.4mg cap ORAL SCH (21:00)
[2018-05-07 23:51] VITALS: BP 117/71
[2018-05-08 04:02] VITALS: BP 110/56
--- NOTE | 2018-05-08 07:14 | NUR ---
HAND-OFF: Report given to Ethel OCONNELL.
--- NOTE | 2018-05-08 07:57 | NUR ---
NURSE NOTES: Received patient in bed, resting and alert to name and place. Patient denies pain. No signs of respiratory distress. No IV, MD aware. Bed in lowest position, call light within reach. Will continue to monitor.
[2018-05-08 08:00] VITALS: BP 112/64
[2018-05-08] MEDS: Heparin 5000 units/ml inj SUBQ SCH ×2 (09:00→21:00)
[2018-05-08] MEDS: Docusate 100mg cap ORAL SCH ×2 (09:06→18:00)
[2018-05-08] MEDS: OLANZapine 10mg tab ORAL SCH ×3 (09:06→18:00)
[2018-05-08] MEDS: Magnesium Oxide 400mg tab ORAL SCH ×3 (09:06→18:00)
[2018-05-08] MEDS: Phospha 250 Neutral tab ORAL SCH ×3 (09:06→18:00)
[2018-05-08] MEDS: Aspirin Baby 81mg ORAL SCH (09:06)
[2018-05-08] MEDS: Ascorbic Acid 500mg tab ORAL SCH (09:06)
--- NOTE | 2018-05-08 10:54 | GI Progress Note ---
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 Ferguson Assessment/Plan psych f/u defer PEG, the patient has shown improvement in caloric intake and shows no signs of dysphagia or risk for aspiration. Patient on regular diet push p.o. One-to-one feeder IV/p.o. hydration Antibiotics PPI Bowel regimen Follow-up labs The patient was seen and examined at bedside and all new and available data was reviewed in the patients chart. I agree with the above findings, impression and plan. (Patient seen earlier today. Signature stamp does not reflect patient encounter time.). - Juliocesar Ferguson MD Subjective Subjective Limited Objective Last 24 Hour Vital Signs Date Time Temp Pulse Resp B/P (MAP) Pulse Ox O2 Delivery O2 Flow Rate FiO2 05/08/18 09:00 Room Air 05/08/18 09:00 72 112/64 05/08/18 08:00 97.6 72 18 112/64 (80) 98 05/08/18 04:02 98.7 63 18 110/56 (74) 100 05/07/18 23:51 98.1 72 18 117/71 (86) 98 05/07/18 21:00 Room Air Intake and Output 05/07/18 05/08/18 19:00 07:00 Intake Total 2040 ml Balance 2040 ml Intake Oral 840 ml Other 1200 ml # Voids 5 Height (Feet): 5 Height (Inches): 10.00 Weight (Pounds): 168 General Appearance: WD/WN, no apparent distress, alert Cardiovascular: normal rate Respiratory/Chest: normal breath sounds, no respiratory distress Abdominal Exam: normal bowel sounds, non tender, soft Extremities: non-tender Objective Legally blind Roxanna Saavedra NP May 08, 2018 10:54
[2018-05-08] MEDS ORDERED: Sennosides 8.6mg tab ORAL SCH (11:00)
--- NOTE | 2018-05-08 11:11 | Infectious Diseases Prog Note ---
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 - 04/24/18 SP PO Bactrim DS BID - 04/20/18 SP empiric Azactam , Flagyl and IV Vanco d# 6/10 - 04/15/18 SP Ceftriaxone d# 2 -Monitor CBC/CMP, temperatures Subjective Allergies: Coded Allergies: BENZTROPINE (Unverified Allergy, Unknown, 02/22/14) HALOPERIDOL (Unverified Allergy, Unknown, 02/22/14) PENICILLINS (Unverified Allergy, Unknown, 04/14/18) tolerated Ceftriaxone 06/2017 Subjective afebrile off abx no leukocytosis Objective Vital Signs Last 24 Hour Vital Signs Date Time Temp Pulse Resp B/P (MAP) Pulse Ox O2 Delivery O2 Flow Rate FiO2 05/08/18 09:00 Room Air 05/08/18 09:00 72 112/64 05/08/18 08:00 97.6 72 18 112/64 (80) 98 05/08/18 04:02 98.7 63 18 110/56 (74) 100 05/07/18 23:51 98.1 72 18 117/71 (86) 98 05/07/18 21:00 Room Air Height (Feet): 5 Height (Inches): 10.00 Weight (Pounds): 168 Objective General: NAD, irritable HEENT: NCAT, right eye with large ulcer no surrounding erythema or purulence but scar and some necrotic tissue present, left eye - visible cataract, glassy/ hazy appearance Respiratory: CATB, No W/C Cardiovascular no edema, tachycardia Gastrointestinal: normal bowel sounds, non tender, soft Current Medications Medications (Trade) Dose Ordered Sig/Jordi Route PRN Reason Start Time Stop Time Status Last Admin Dose Admin Amlodipine Besylate (Norvasc) 5 mg DAILY ORAL 05/06/18 09:00 05/14/18 08:59 05/07/18 08:28 Ascorbic Acid (Vitamin C) 500 mg DAILY ORAL 05/06/18 09:00 05/14/18 08:59 05/08/18 09:06 Aspirin (ASA) 81 mg DAILY ORAL 05/06/18 09:00 05/14/18 08:59 05/08/18 09:06 Docusate Sodium (Colace) 100 mg TWICE A DAY ORAL 05/07/18 18:00 06/06/18 17:59 05/08/18 09:06 Famotidine (Pepcid) 20 mg BID ORAL 05/05/18 18:00 05/18/18 17:59 05/08/18 09:06 Heparin Sodium (Porcine) (Heparin 5000 units/ml) 5,000 units EVERY 12 HOURS SUBQ 05/05/18 21:00 05/14/18 08:59 05/07/18 08:29 Lorazepam (Ativan) 1 mg Q6H PRN ORAL For Anxiety 05/05/18 18:16 05/08/18 18:15 Magnesium Oxide (Mag-Ox 400mg) 400 mg THREE TIMES A DAY ORAL 05/05/18 18:00 05/20/18 17:59 05/08/18 09:06 Multivitamins (Multivitamins) 1 tab DAILY ORAL 05/06/18 09:00 05/14/18 08:59 05/08/18 09:06 Olanzapine (ZyPREXA) 10 mg TID ORAL 05/05/18 18:00 05/25/18 17:59 05/08/18 09:06 Phosphorus (Phospha 250 Neutral) 500 mg THREE TIMES A DAY ORAL 05/05/18 18:00 05/20/18 17:59 05/08/18 09:06 Polyethylene Glycol (Miralax) 17 gm DAILYPRN PRN ORAL Constipation 05/07/18 16:00 06/06/18 15:59 05/07/18 17:35 Quetiapine Fumarate (SEROquel) 150 mg EVERY 8 HOURS ORAL 05/05/18 22:00 05/21/18 05:59 05/08/18 05:24 Sennosides (Senokot) 8.6 mg ONCE ORAL 05/08/18 11:00 05/08/18 12:00 Tamsulosin HCl (Flomax) 0.4 mg BEDTIME ORAL 05/05/18 21:00 05/16/18 20:59 05/06/18 20:23 Carmella Spring M.D. May 08, 2018 11:11
--- NOTE | 2018-05-08 11:14 | Nephrology Progress Note ---
Assessment/Plan Problem List: (1) Dehydration (2) HTN (hypertension) (3) Failure to thrive in adult (4) Schizophrenia Assessment WBC now wnl (1) Dysphasia (2) Encounter for PEG (percutaneous endoscopic gastrostomy) (3) Schizophrenia (4) Failure to thrive in adult (5) Generalized weakness (6) Severe malnutrition (7) Dehydration (8) Schizophrenia (9) HTN (10) Legally Blind Plan Flomax Psych mangement per consultants ? DC planning Subjective ROS Limited/Unobtainable: No Objective Objective Last 24 Hour Vital Signs Date Time Temp Pulse Resp B/P (MAP) Pulse Ox O2 Delivery O2 Flow Rate FiO2 05/08/18 09:00 Room Air 05/08/18 09:00 72 112/64 05/08/18 08:00 97.6 72 18 112/64 (80) 98 05/08/18 04:02 98.7 63 18 110/56 (74) 100 05/07/18 23:51 98.1 72 18 117/71 (86) 98 05/07/18 21:00 Room Air Intake and Output 05/07/18 05/08/18 19:00 07:00 Intake Total 2040 ml Balance 2040 ml Intake Oral 840 ml Other 1200 ml # Voids 5 Height (Feet): 5 Height (Inches): 10.00 Weight (Pounds): 168 General Appearance: no apparent distress Objective no change Al Roper MD May 08, 2018 11:14
--- NOTE | 2018-05-08 11:34 | NUR ---
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 97.6 HR 72 RR 18 B/P 110/56 RA 98% IS: SEROQUEL PO ASA PO FLOMAX PO HEPARIN SUBC PLACEMENT PENDING MED/SURG STATUS
[2018-05-08 12:00] VITALS: BP 115/79
--- NOTE | 2018-05-08 12:32 | NUR ---
RD ASSESSMENT & RECOMMENDATIONS SEE CARE ACTIVITY FOR COMPLETE ASSESSMENT DAILY ESTIMATED NEEDS: Needs based on Wound/ 71kg 25-30 kcals/kg 8262-3070 total kcals 1.25-1.7 g protein/kg 88-120 g total protein 25-30 mL/kg 3921-8721 total fluid mLs NUTRITION DIAGNOSIS: * Increased kcal/pro intake needs R/T wound healing as evidenced by pt w/ open wound @ rt eye due to h/o resection of carcinoma. * Inadequate oral intake R/T psych issues? etiology unknown as evidenced by pt admitted w/ c/o refusing to eat w/ FTT dx, now w/ improved oral intake. CURRENT DIET:REGULAR PO DIET RECOMMENDATIONS: Liberalized REGULAR diet/ texture per STOREROOM CLERK + ENSURE TID ADDITIONAL RECOMMENDATIONS: * Calibrated bedscale for accurate updated weight * * ENSURE ENLIVE TID w/ meals * Wound healing: continue MVI x 1, Vit C 500mg QD : Add Crispin 1pkt BID * STOREROOM CLERK eval for appropriate texture * *
--- NOTE | 2018-05-08 14:56 | Cardiac Electrophysiology PN ---
Assessment/Plan Assessment/Plan 1. Sinus tachycardia. Due to anxiety and infection.Resolved 2. Hypertension, on Norvasc 5 mg daily. 3. Schizophrenia. 4. Right facial basal cell carcinoma, status post surgery with necrotic skin. 5. Dysphagia, resolved DW RN Subjective Subjective Placement is spending. Noncompliant. Objective Last 24 Hour Vital Signs Date Time Temp Pulse Resp B/P (MAP) Pulse Ox O2 Delivery O2 Flow Rate FiO2 05/08/18 09:00 Room Air 05/08/18 09:00 72 112/64 05/08/18 08:00 97.6 72 18 112/64 (80) 98 05/08/18 04:02 98.7 63 18 110/56 (74) 100 05/07/18 23:51 98.1 72 18 117/71 (86) 98 05/07/18 21:00 Room Air Intake and Output 05/07/18 05/08/18 19:00 07:00 Intake Total 2040 ml Balance 2040 ml Intake Oral 840 ml Other 1200 ml # Voids 5 Objective HEAD AND NECK: No JVD. The right side of his face has a scar. LUNGS: Clear CARDIOVASCULAR: RRR. No GRM ABDOMEN: Soft EXTREMITIES: No edema. Teto Branch MD May 08, 2018 14:56
[2018-05-08 16:00] VITALS: BP 145/77
--- NOTE | 2018-05-08 17:31 | NUR ---
NURSE NOTES: Patient has been refusing all medications. Risks versus benefits explained but patient continued to curse at me while doing so.
--- NOTE | 2018-05-08 18:53 | NUR ---
NURSE NOTES: Patient refused scheduled 1800 medications.
--- NOTE | 2018-05-08 19:09 | NUR ---
HAND-OFF: Report given to ANISH Rosdao.
--- NOTE | 2018-05-08 19:55 | NUR ---
NURSE NOTES: Patient received in bed, awake, calm at this time. Bed locked in low position. Will continue to monitor.
[2018-05-08] MEDS: Tamsulosin 0.4mg cap ORAL SCH (21:07)
--- NOTE | 2018-05-08 21:54 | General Progress Note ---
Assessment/Plan Problem List: (1) Cancer ICD Codes: C80.1 - Malignant (primary) neoplasm, unspecified SNOMED: 816669676 (2) Generalized weakness ICD Codes: R53.1 - Weakness SNOMED: 12095542 (3) Severe malnutrition ICD Codes: E43 - Unspecified severe protein-calorie malnutrition SNOMED: 27935615 (4) Failure to thrive in adult ICD Codes: R62.7 - Adult failure to thrive SNOMED: 095109348 (5) Poor fluid intake ICD Codes: R63.8 - Other symptoms and signs concerning food and fluid intake SNOMED: 686997231 (6) Schizophrenia ICD Codes: F20.9 - Schizophrenia, unspecified SNOMED: 36770088 Status: progressing Assessment/Plan h/h is stable poor prognosis poor appetite anemia malnurished cancer afebrile Subjective ROS Limited/Unobtainable: Yes Allergies: Coded Allergies: BENZTROPINE (Unverified Allergy, Unknown, 02/22/14) HALOPERIDOL (Unverified Allergy, Unknown, 02/22/14) PENICILLINS (Unverified Allergy, Unknown, 04/14/18) tolerated Ceftriaxone 06/2017 Objective Last 24 Hour Vital Signs Date Time Temp Pulse Resp B/P (MAP) Pulse Ox O2 Delivery O2 Flow Rate FiO2 05/08/18 21:00 Room Air 05/08/18 16:00 98.6 73 12 145/77 (99) 92 05/08/18 12:00 98.8 76 19 115/79 (91) 92 05/08/18 09:00 Room Air 05/08/18 09:00 72 112/64 05/08/18 08:00 97.6 72 18 112/64 (80) 98 05/08/18 04:02 98.7 63 18 110/56 (74) 100 05/07/18 23:51 98.1 72 18 117/71 (86) 98 Intake and Output 05/07/18 05/08/18 18:59 06:59 Intake Total 2040 ml Balance 2040 ml Intake Oral 840 ml Other 1200 ml # Voids 5 Height (Feet): 5 Height (Inches): 10.00 Weight (Pounds): 164 Neck: supple Cardiovascular: normal rate Respiratory/Chest: lungs clear Abdomen: soft Cady Berg MD May 08, 2018 21:54
[2018-05-09] VITALS: BP 130/82
[2018-05-09 04:00] VITALS: BP 124/70
--- NOTE | 2018-05-09 04:35 | NUR ---
HAND-OFF: Report given to Francisco Javier OCONNELL.
--- NOTE | 2018-05-09 04:35 | NUR ---
NURSE NOTES: Received patient sleeping, no s/s of distress noted. Will continue to monitor.
--- NOTE | 2018-05-09 07:18 | NUR ---
HAND-OFF: Report given to Viola OCONNELL
[2018-05-09 08:00] VITALS: BP 129/85
--- NOTE | 2018-05-09 08:03 | NUR ---
NURSE NOTES: Received patient asleep, with no sob. Bed in lowest position. Call light made within reach. will cont to monitor.
[2018-05-09] MEDS: OLANZapine 10mg tab ORAL SCH ×3 (08:47→18:00)
[2018-05-09] MEDS: Docusate 100mg cap ORAL SCH ×2 (08:47→18:00)
[2018-05-09] MEDS: Phospha 250 Neutral tab ORAL SCH ×3 (08:47→18:00)
[2018-05-09] MEDS: Aspirin Baby 81mg ORAL SCH (08:48)
[2018-05-09] MEDS: Ascorbic Acid 500mg tab ORAL SCH (08:48)
[2018-05-09] MEDS: Heparin 5000 units/ml inj SUBQ SCH ×2 (08:48→21:00)
[2018-05-09] MEDS: Magnesium Oxide 400mg tab ORAL SCH ×3 (08:48→18:00)
--- NOTE | 2018-05-09 10:59 | Cardiac Electrophysiology PN ---
Assessment/Plan Assessment/Plan 1. Sinus tachycardia. Due to anxiety and infection.Resolved 2. Hypertension, on Norvasc 5 mg daily. 3. Schizophrenia. 4. Right facial basal cell carcinoma, status post surgery with necrotic skin. 5. Dysphagia, resolved 6. Noncompliant DW RN Subjective Subjective Placement is pending. No events Objective Last 24 Hour Vital Signs Date Time Temp Pulse Resp B/P (MAP) Pulse Ox O2 Delivery O2 Flow Rate FiO2 05/09/18 09:00 Room Air 05/09/18 08:47 77 129/85 05/09/18 08:00 98.2 77 19 129/85 (100) 96 05/09/18 04:00 97.5 70 19 124/70 (88) 96 05/09/18 00:00 97.5 89 20 130/82 (98) 94 05/08/18 21:00 Room Air 05/08/18 16:00 98.6 73 12 145/77 (99) 92 05/08/18 12:00 98.8 76 19 115/79 (91) 92 Intake and Output 05/08/18 05/09/18 19:00 07:00 Intake Total 800 ml 480 ml Balance 800 ml 480 ml Intake Oral 480 ml Other 800 ml # Voids 2 3 Objective HEAD AND NECK: No JVD. The right side of his face has a scar. LUNGS: Clear CARDIOVASCULAR: RRR. No GRM ABDOMEN: Soft EXTREMITIES: No edema. Teto Branch MD May 09, 2018 10:59
--- NOTE | 2018-05-09 11:16 | NUR ---
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 98.2 HR 77 RR 19 B/P 129/83 RA 98% IS: MIRALAX PO NORVASC PO ASA PO HEPARIN SUBC PLACEMENT PENDING MED/SURG STATUS
--- NOTE | 2018-05-09 11:17 | Nephrology Progress Note ---
Assessment/Plan Problem List: (1) Dehydration (2) HTN (hypertension) (3) Failure to thrive in adult (4) Schizophrenia Assessment WBC now wnl (1) Dysphasia (2) Encounter for PEG (percutaneous endoscopic gastrostomy) (3) Schizophrenia (4) Failure to thrive in adult (5) Generalized weakness (6) Severe malnutrition (7) Dehydration (8) Schizophrenia (9) HTN (10) Legally Blind Plan Flomax Psych mangement per consultants ? DC planning Subjective ROS Limited/Unobtainable: No Objective Objective Last 24 Hour Vital Signs Date Time Temp Pulse Resp B/P (MAP) Pulse Ox O2 Delivery O2 Flow Rate FiO2 05/09/18 09:00 Room Air 05/09/18 08:47 77 129/85 05/09/18 08:00 98.2 77 19 129/85 (100) 96 05/09/18 04:00 97.5 70 19 124/70 (88) 96 05/09/18 00:00 97.5 89 20 130/82 (98) 94 05/08/18 21:00 Room Air 05/08/18 16:00 98.6 73 12 145/77 (99) 92 05/08/18 12:00 98.8 76 19 115/79 (91) 92 Intake and Output 05/08/18 05/09/18 19:00 07:00 Intake Total 800 ml 480 ml Balance 800 ml 480 ml Intake Oral 480 ml Other 800 ml # Voids 2 3 Height (Feet): 5 Height (Inches): 10.00 Weight (Pounds): 164 General Appearance: no apparent distress Objective no change Al Roper MD May 09, 2018 11:17
--- NOTE | 2018-05-09 11:37 | NUR ---
SS note Patient has been noncompliant, questioning whether patient will require Hospice. This Sw met with patient who appears to be a poor historian, not able to make own decisions. This Sw spoke with sister/conservator, Dora David who explains patient becomes confused, will need to give his medications through liquids. Sister explained she does not want Hospice for patient at this time, giving permission to restrain patient as needed. Nursing, Yuko morataya, who explained patient has been more compliant with taking medications and keeping his dressing changes on his eye on at this time.
[2018-05-09 12:00] VITALS: BP 132/78
--- NOTE | 2018-05-09 12:01 | Infectious Diseases Prog Note ---
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 - 04/24/18 SP PO Bactrim DS BID - 04/20/18 SP empiric Azactam , Flagyl and IV Vanco d# 6/10 - 04/15/18 SP Ceftriaxone d# 2 -Monitor CBC/CMP, temperatures Subjective Allergies: Coded Allergies: BENZTROPINE (Unverified Allergy, Unknown, 02/22/14) HALOPERIDOL (Unverified Allergy, Unknown, 02/22/14) PENICILLINS (Unverified Allergy, Unknown, 04/14/18) tolerated Ceftriaxone 06/2017 Subjective afebrile off abx no leukocytosis Objective Vital Signs Last 24 Hour Vital Signs Date Time Temp Pulse Resp B/P (MAP) Pulse Ox O2 Delivery O2 Flow Rate FiO2 05/09/18 09:00 Room Air 05/09/18 08:47 77 129/85 05/09/18 08:00 98.2 77 19 129/85 (100) 96 05/09/18 04:00 97.5 70 19 124/70 (88) 96 05/09/18 00:00 97.5 89 20 130/82 (98) 94 05/08/18 21:00 Room Air 05/08/18 16:00 98.6 73 12 145/77 (99) 92 Height (Feet): 5 Height (Inches): 10.00 Weight (Pounds): 160 Objective General: NAD, irritable HEENT: NCAT, right eye with large ulcer no surrounding erythema or purulence but scar and some necrotic tissue present, left eye - visible cataract, glassy/ hazy appearance Respiratory: CATB, No W/C Cardiovascular no edema, tachycardia Gastrointestinal: normal bowel sounds, non tender, soft Current Medications Medications (Trade) Dose Ordered Sig/Jordi Route PRN Reason Start Time Stop Time Status Last Admin Dose Admin Amlodipine Besylate (Norvasc) 5 mg DAILY ORAL 05/06/18 09:00 05/14/18 08:59 05/09/18 08:47 Ascorbic Acid (Vitamin C) 500 mg DAILY ORAL 05/06/18 09:00 05/14/18 08:59 05/09/18 08:48 Aspirin (ASA) 81 mg DAILY ORAL 05/06/18 09:00 05/14/18 08:59 05/09/18 08:48 Docusate Sodium (Colace) 100 mg TWICE A DAY ORAL 05/07/18 18:00 06/06/18 17:59 05/09/18 08:47 Famotidine (Pepcid) 20 mg BID ORAL 05/05/18 18:00 05/18/18 17:59 05/09/18 08:48 Heparin Sodium (Porcine) (Heparin 5000 units/ml) 5,000 units EVERY 12 HOURS SUBQ 05/05/18 21:00 05/14/18 08:59 05/07/18 08:29 Magnesium Oxide (Mag-Ox 400mg) 400 mg THREE TIMES A DAY ORAL 05/05/18 18:00 05/20/18 17:59 05/09/18 08:48 Multivitamins (Multivitamins) 1 tab DAILY ORAL 05/06/18 09:00 05/14/18 08:59 05/09/18 08:48 Olanzapine (ZyPREXA) 10 mg TID ORAL 05/05/18 18:00 05/25/18 17:59 05/09/18 08:47 Phosphorus (Phospha 250 Neutral) 500 mg THREE TIMES A DAY ORAL 05/05/18 18:00 05/20/18 17:59 05/09/18 08:47 Polyethylene Glycol (Miralax) 17 gm DAILYPRN PRN ORAL Constipation 05/07/18 16:00 06/06/18 15:59 05/07/18 17:35 Quetiapine Fumarate (SEROquel) 150 mg EVERY 8 HOURS ORAL 05/05/18 22:00 05/21/18 05:59 05/09/18 05:44 Tamsulosin HCl (Flomax) 0.4 mg BEDTIME ORAL 05/05/18 21:00 05/16/18 20:59 05/08/18 21:07 Carmella Spring M.D. May 09, 2018 12:01
--- NOTE | 2018-05-09 12:54 | General Progress Note ---
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 SNOMED: 05966958 (2) Dehydration ICD Codes: E86.0 - Dehydration SNOMED: 74343740 (3) Basal cell carcinoma ICD Codes: C44.91 - Basal cell carcinoma of skin, unspecified SNOMED: 326125546 (4) Generalized weakness ICD Codes: R53.1 - Weakness SNOMED: 35407642 (5) Cellulitis and abscess of face ICD Codes: L03.211 - Cellulitis of face; L02.01 - Cutaneous abscess of face SNOMED: 826811847 (6) Severe malnutrition ICD Codes: E43 - Unspecified severe protein-calorie malnutrition SNOMED: 26533039 (7) Failure to thrive in adult ICD Codes: R62.7 - Adult failure to thrive SNOMED: 331641815 (8) Periorbital swelling ICD Codes: H57.8 - Periorbital swelling SNOMED: 510993205 (9) Dysphasia ICD Codes: R47.02 - Dysphasia SNOMED: 01633627 (10) HTN (hypertension) ICD Codes: I10 - Essential (primary) hypertension SNOMED: 71300035 (11) UTI (urinary tract infection) ICD Codes: N39.0 - Urinary tract infection, site not specified SNOMED: 39478864 Status: stable, progressing Assessment/Plan pt diet abx prn cbc bmp am dc if clear Subjective Constitutional: Reports: weakness Allergies: Coded Allergies: BENZTROPINE (Unverified Allergy, Unknown, 02/22/14) HALOPERIDOL (Unverified Allergy, Unknown, 02/22/14) PENICILLINS (Unverified Allergy, Unknown, 04/14/18) tolerated Ceftriaxone 06/2017 All Systems: reviewed and negative except above Subjective sleepy calm Objective Last 24 Hour Vital Signs Date Time Temp Pulse Resp B/P (MAP) Pulse Ox O2 Delivery O2 Flow Rate FiO2 05/09/18 12:00 98.0 72 19 132/78 (96) 96 05/09/18 09:00 Room Air 05/09/18 08:47 77 129/85 05/09/18 08:00 98.2 77 19 129/85 (100) 96 05/09/18 04:00 97.5 70 19 124/70 (88) 96 05/09/18 00:00 97.5 89 20 130/82 (98) 94 05/08/18 21:00 Room Air 05/08/18 16:00 98.6 73 12 145/77 (99) 92 Intake and Output 05/08/18 05/09/18 19:00 07:00 Intake Total 800 ml 480 ml Balance 800 ml 480 ml Intake Oral 480 ml Other 800 ml # Voids 2 3 Height (Feet): 5 Height (Inches): 10.00 Weight (Pounds): 160 General Appearance: lethargic, confused EENT: normal ENT inspection Neck: normal alignment Cardiovascular: normal peripheral pulses, normal rate, regular rhythm Respiratory/Chest: chest wall non-tender, lungs clear, normal breath sounds Abdomen: normal bowel sounds, non tender, soft Extremities: normal inspection Edema: no edema noted Arm (L), no edema noted Arm (R), no edema noted Leg (L), no edema noted Leg (R), no edema noted Pedal (L), no edema noted Pedal (R), no edema noted Generalized Neurologic: motor weakness Skin: normal pigmentation, warm/dry Julio Higgins DO May 09, 2018 12:54
--- NOTE | 2018-05-09 13:19 | GI Progress Note ---
Assessment/Plan Problems: (1) Dysphasia ICD Codes: R47.02 - Dysphasia SNOMED: 20905506 (2) Schizophrenia ICD Codes: F20.9 - Schizophrenia, unspecified SNOMED: 24999465 (3) Poor fluid intake ICD Codes: R63.8 - Other symptoms and signs concerning food and fluid intake SNOMED: 809515888 (4) Failure to thrive in adult ICD Codes: R62.7 - Adult failure to thrive SNOMED: 821196934 (5) Severe malnutrition ICD Codes: E43 - Unspecified severe protein-calorie malnutrition SNOMED: 19138947 (6) Dehydration ICD Codes: E86.0 - Dehydration SNOMED: 35739668 (7) Schizophreniform psychosis ICD Codes: F20.9 - Schizophreniform psychosis SNOMED: 21948613 (8) Cellulitis and abscess of face ICD Codes: L03.211 - Cellulitis of face; L02.01 - Cutaneous abscess of face SNOMED: 052562885 (9) Constipation ICD Codes: K59.00 - Constipation, unspecified SNOMED: 32452110 Status: unchanged Status Narrative Discussed with Dr. Ferguson Assessment/Plan psych f/u defer PEG, the patient has shown improvement in caloric intake and shows no signs of dysphagia or risk for aspiration. Patient on regular diet push p.o. One-to-one feeder IV/p.o. hydration Antibiotics PPI Bowel regimen, refused Senokot Follow-up labs The patient was seen and examined at bedside and all new and available data was reviewed in the patients chart. I agree with the above findings, impression and plan. (Patient seen earlier today. Signature stamp does not reflect patient encounter time.). - Juliocesar Ferguson MD Subjective Subjective Limited Objective Last 24 Hour Vital Signs Date Time Temp Pulse Resp B/P (MAP) Pulse Ox O2 Delivery O2 Flow Rate FiO2 05/09/18 12:00 98.0 72 19 132/78 (96) 96 05/09/18 09:00 Room Air 05/09/18 08:47 77 129/85 05/09/18 08:00 98.2 77 19 129/85 (100) 96 05/09/18 04:00 97.5 70 19 124/70 (88) 96 05/09/18 00:00 97.5 89 20 130/82 (98) 94 05/08/18 21:00 Room Air 05/08/18 16:00 98.6 73 12 145/77 (99) 92 Intake and Output 05/08/18 05/09/18 19:00 07:00 Intake Total 800 ml 480 ml Balance 800 ml 480 ml Intake Oral 480 ml Other 800 ml # Voids 2 3 Height (Feet): 5 Height (Inches): 10.00 Weight (Pounds): 160 General Appearance: WD/WN, no apparent distress, alert Cardiovascular: normal rate Respiratory/Chest: normal breath sounds, no respiratory distress Abdominal Exam: normal bowel sounds, non tender, soft Extremities: non-tender Objective Legally blind Roxanna Saavedra NP May 09, 2018 13:19
[2018-05-09 16:00] VITALS: BP 134/80
--- NOTE | 2018-05-09 19:26 | NUR ---
HAND-OFF: Report given to ANISH Flores.
--- NOTE | 2018-05-09 19:41 | NUR ---
NURSE NOTES: Received patient comfortably sleeping.Kept clean and dry.
[2018-05-09] MEDS: Tamsulosin 0.4mg cap ORAL SCH (21:00)
--- NOTE | 2018-05-09 21:59 | General Progress Note ---
Assessment/Plan Assessment/Plan # Leukocytosis. Secondary to underlying infection, sepsis of R eye/hx malignancy that side --> Monitor and trend wbc for improvement -->16.6-->23.0-->31.5-->9.2-->11.2-->22.9-->10 --> Peripheral smear has been reviewed, no blasts noted --> Medications have been reviewed --> Imaging has been reviewed --> cont on abx, empiric treatment --> per ID management # Carcinoma resection of from right side of face/eye --> as per outpatient onc # Anemia of chronic disease --> anemia panel has been reviewed --> trend hgb 12.8-->10.2-->10 # FTT --> refusing care --> defer peg tube given improvement in po intake --> calorie counts and weights weekly --> mirtazpine as needed # Sepsis. improved # H/O superinfected necrotic mass and possible micro abscess s/p Tx 06/2017 # Wound. # COPD. # Dysphasia # Schizophrenia # HTN. # Legally blind Time and date note entered in EMR does not reflect time and date of encounter. GREATLY APPRECIATE CONSULTATION. Subjective Constitutional: Denies: no symptoms, chills, diaphoresis, fever, malaise, weakness, other HEENT: Denies: no symptoms, eye pain, blurred vision, tearing, double vision, ear pain, ear discharge, nose pain, nose congestion, throat pain, throat swelling, mouth pain, mouth swelling, other Cardiovascular: Denies: no symptoms, chest pain, edema, irregular heart rate, lightheadedness, palpitations, syncope, other Respiratory: Denies: no symptoms, cough, orthopnea, shortness of breath, SOB with excertion, SOB at rest, sputum, stridor, wheezing, other Gastrointestinal/Abdominal: Denies: no symptoms, abdomen distended, abdominal pain, black stools, tarry stools, blood in stool, constipated, diarrhea, difficulty swallowing, nausea, poor appetite, poor fluid intake, rectal bleeding , vomiting, other Genitourinary: Denies: no symptoms, burning, discharge, frequency, flank pain, hematuria, incontinence, pain, urgency, other Neurologic/Psychiatric: Denies: no symptoms, anxiety, depressed, emotional problems, headache, numbness, paresthesia, pre-existing deficit, seizure, tingling, tremors, weakness, other Endocrine: Denies: no symptoms, excessive sweating, flushing, intolerance to cold, intolerance to heat, increased hunger, increased thirst, increased urine, unexplained weight gain, unexplained weight loss, other Hematologic/Lymphatic: Denies: no symptoms, anemia, easy bleeding, easy bruising, other Allergies: Coded Allergies: BENZTROPINE (Unverified Allergy, Unknown, 02/22/14) HALOPERIDOL (Unverified Allergy, Unknown, 02/22/14) PENICILLINS (Unverified Allergy, Unknown, 04/14/18) tolerated Ceftriaxone 06/2017 Subjective 04/15: Pt awake and agitated. No acute events. Pt refusing meds. 04/16: wbc severely elevated, seen by Id, on broad spectrum antifungals, foul language, very aggressive 04/18: no events, mumbling, minimally conversive, no fevers, down on ivf 04/19: pt is awake and resting in bed. refusing care, aggressive, no events 04/20: Pt is awake and alert, refusing care, minimally conversive, on abx, wbc have improved. 04/21: Pt is awake and resting in bed, aggressive, mumbling, 04/22: Pt is resting in bed. PEG has been defered, the patient has shown improvement in caloric intake and shows no signs of dysphagia or risk for aspiration. 04/23: Pt is seen in the room, resting in bed, refusing care, on abx, pending labs 17/: No events, has been agitated overnight, refusing care 04/25: Pt is awake and resting in bed, refusing labs, agitated, screaming, refusing care 04/26: no major events, no fevers or chills, no chest pain or sob 04/27: pt is seen by bedside, awake and comfortable, wbc is at 22.9 today. 04/28: peg has been deferred, gi recs reviewed, no events, slightly agitated 04/29: no events, refusing care, no change other, remains aggressive, says "don' t touch me" 04/30: continues to cuss out, rn by bedside with conservator and able to chnage wound on eye R 05/01: Pt is awake and calm, alert oriented x1, remains afebrile off abx and leukocytosis resolved 05/02: Pt is seen by bedside, awake and calm, no events. pending labs 05/03: Pt is alert and oriented x1, remains afebrile off abx and leukocytosis resolved 05/04: accepted at [facility], potentail dc as early as today 05/05: pt came back from [facility]. They were unable to accept the pt due to pt's agitation worsenin 05/09: Pt is awake, seen by bedside, pending placement, no events Objective Last 24 Hour Vital Signs Date Time Temp Pulse Resp B/P (MAP) Pulse Ox O2 Delivery O2 Flow Rate FiO2 05/09/18 20:05 Room Air 05/09/18 16:00 98.2 68 19 134/80 (98) 96 05/09/18 12:00 98.0 72 19 132/78 (96) 96 05/09/18 09:00 Room Air 05/09/18 08:47 77 129/85 05/09/18 08:00 98.2 77 19 129/85 (100) 96 05/09/18 04:00 97.5 70 19 124/70 (88) 96 05/09/18 00:00 97.5 89 20 130/82 (98) 94 Intake and Output 05/08/18 05/09/18 19:00 07:00 Intake Total 800 ml 480 ml Balance 800 ml 480 ml Intake Oral 480 ml Other 800 ml # Voids 2 3 Height (Feet): 5 Height (Inches): 10.00 Weight (Pounds): 160 Objective Vitals: Have been reviewed General Appearance: alert, agitated Head: normocephalic, atraumatic Eyes: right eye abnormal pupil - right eye has patch which covers the right temporal area of face as well from cancer ressection; left eye other - visible cataract, glassy/hazy appearance, unchanged ENT: hearing grossly normal, other Neck: full range of motion Respiratory: chest non-tender, lungs clear Cardiovascular no edema, tachycardia Gastrointestinal: normal bs, non tender, soft MSK: back normal, non-tender, bilateral hand contractures Skin: normal color, no rash, warm/dry Jr Daly MD May 09, 2018 21:59
--- NOTE | 2018-05-10 07:15 | NUR ---
HAND-OFF: Report given to Sherry Villarreal RN.
[2018-05-10 08:00] VITALS: BP 132/67
--- NOTE | 2018-05-10 08:05 | NUR ---
NURSE NOTES: Patient alert x1, on room air, no sign of distress and shortness of breath. Patient is legally blind. Incontinent x2. Right eye open wound, will try to put optiform. Bed at lowest position. breaks engaged. Will keep monitoring.
[2018-05-10 08:11] LABS: EOSINOPHILS % (AUTO) 0.4 % (0.0-3.0); HEMOGLOBIN 12.5 G/DL (14.2-18.0); MEAN CORPUSCULAR VOLUME 91 FL (80-99); MONOCYTES % (AUTO) 4.9 % (1.0-10.0); NEUTROPHILS % (AUTO) 60.6 % (45.0-75.0); PLATELET COUNT 443 K/UL (150-450); RED BLOOD COUNT 4.18 M/UL (4.70-6.10); WHITE BLOOD COUNT 15.7 K/UL (4.8-10.8)
[2018-05-10] MEDS: Docusate 100mg cap ORAL SCH ×2 (08:47→17:20)
[2018-05-10] MEDS: Aspirin Baby 81mg ORAL SCH (08:48)
[2018-05-10] MEDS: Magnesium Oxide 400mg tab ORAL SCH ×2 (08:48→12:16)
[2018-05-10] MEDS: Ascorbic Acid 500mg tab ORAL SCH (08:48)
[2018-05-10] MEDS: OLANZapine 10mg tab ORAL SCH ×3 (08:48→17:20)
[2018-05-10] MEDS: Phospha 250 Neutral tab ORAL SCH ×3 (08:48→17:21)
[2018-05-10] MEDS: Heparin 5000 units/ml inj SUBQ SCH ×2 (08:49→21:00)
[2018-05-10 09:39] LABS: ANION GAP 9 mmol/L (5-15); BLOOD UREA NITROGEN 20 mg/dL (7-18); CALCIUM 9.3 MG/DL (8.5-10.1); CARBON DIOXIDE 29 MMOL/L (21-32); CHLORIDE 103 MMOL/L (98-107); CREATININE 0.9 MG/DL (0.55-1.30); POTASSIUM 3.6 MMOL/L (3.5-5.1); SODIUM 141 MMOL/L (136-145)
--- NOTE | 2018-05-10 11:00 | GI Progress Note ---
Assessment/Plan Problems: (1) Dysphasia ICD Codes: R47.02 - Dysphasia SNOMED: 56678814 (2) Schizophrenia ICD Codes: F20.9 - Schizophrenia, unspecified SNOMED: 35336101 (3) Poor fluid intake ICD Codes: R63.8 - Other symptoms and signs concerning food and fluid intake SNOMED: 848837933 (4) Failure to thrive in adult ICD Codes: R62.7 - Adult failure to thrive SNOMED: 520241963 (5) Severe malnutrition ICD Codes: E43 - Unspecified severe protein-calorie malnutrition SNOMED: 83511436 (6) Dehydration ICD Codes: E86.0 - Dehydration SNOMED: 00882233 (7) Schizophreniform psychosis ICD Codes: F20.9 - Schizophreniform psychosis SNOMED: 54143669 (8) Cellulitis and abscess of face ICD Codes: L03.211 - Cellulitis of face; L02.01 - Cutaneous abscess of face SNOMED: 485102597 (9) Constipation ICD Codes: K59.00 - Constipation, unspecified SNOMED: 59725790 Status: stable Status Narrative Discussed with Dr. Ferguson Assessment/Plan psych f/u defer PEG, the patient has shown improvement in caloric intake and shows no signs of dysphagia or risk for aspiration. Patient on regular diet push p.o. One-to-one feeder IV/p.o. hydration Antibiotics PPI Bowel regimen, refused Senokot Follow-up labs The patient was seen and examined at bedside and all new and available data was reviewed in the patients chart. I agree with the above findings, impression and plan. (Patient seen earlier today. Signature stamp does not reflect patient encounter time.). - Juliocesar Ferguson MD Subjective Subjective Limited Objective Last 24 Hour Vital Signs Date Time Temp Pulse Resp B/P (MAP) Pulse Ox O2 Delivery O2 Flow Rate FiO2 05/10/18 09:00 Room Air 05/10/18 08:48 60 132/67 05/10/18 08:00 97.9 60 18 132/67 (88) 96 05/09/18 20:05 Room Air 05/09/18 16:00 98.2 68 19 134/80 (98) 96 05/09/18 12:00 98.0 72 19 132/78 (96) 96 Intake and Output 05/09/18 05/10/18 19:00 07:00 Intake Total 1320 ml Balance 1320 ml Intake Oral 1320 ml # Voids 3 2 Laboratory Tests Test 05/10/18 07:53 White Blood Count 15.7 K/UL (4.8-10.8) H Red Blood Count 4.18 M/UL (4.70-6.10) L Hemoglobin 12.5 G/DL (14.2-18.0) L Hematocrit 38.0 % (42.0-52.0) L Mean Corpuscular Volume 91 FL (80-99) Mean Corpuscular Hemoglobin 29.9 PG (27.0-31.0) Mean Corpuscular Hemoglobin Concent 32.9 G/DL (32.0-36.0) Red Cell Distribution Width 15.0 % (11.6-14.8) H Platelet Count 443 K/UL (150-450) Mean Platelet Volume 6.0 FL (6.5-10.1) L Neutrophils (%) (Auto) 60.6 % (45.0-75.0) Lymphocytes (%) (Auto) 33.0 % (20.0-45.0) Monocytes (%) (Auto) 4.9 % (1.0-10.0) Eosinophils (%) (Auto) 0.4 % (0.0-3.0) Basophils (%) (Auto) 1.0 % (0.0-2.0) Sodium Level 141 MMOL/L (136-145) Potassium Level 3.6 MMOL/L (3.5-5.1) Chloride Level 103 MMOL/L (98-107) Carbon Dioxide Level 29 MMOL/L (21-32) Anion Gap 9 mmol/L (5-15) Blood Urea Nitrogen 20 mg/dL (7-18) H Creatinine 0.9 MG/DL (0.55-1.30) Estimat Glomerular Filtration Rate > 60 mL/min (>60) Glucose Level 95 MG/DL (74-106) Calcium Level 9.3 MG/DL (8.5-10.1) Height (Feet): 5 Height (Inches): 10.00 Weight (Pounds): 160 General Appearance: WD/WN, no apparent distress, alert Cardiovascular: normal rate Respiratory/Chest: normal breath sounds, no respiratory distress Abdominal Exam: normal bowel sounds, non tender, soft Extremities: non-tender Objective Legally blind Roxanna Saavedra NP May 10, 2018 11:00
[2018-05-10 12:00] VITALS: BP 121/76
--- NOTE | 2018-05-10 12:21 | Cardiac Electrophysiology PN ---
Assessment/Plan Assessment/Plan 1. Sinus tachycardia. Due to anxiety and infection. Resolved 2. Hypertension, on Norvasc 5 mg daily. 3. Schizophrenia. 4. Right facial basal cell carcinoma, status post surgery 5. Dysphagia, resolved 6. Noncompliant DW RN Subjective Subjective Comfortable in NAD. No events Objective Last 24 Hour Vital Signs Date Time Temp Pulse Resp B/P (MAP) Pulse Ox O2 Delivery O2 Flow Rate FiO2 05/10/18 09:00 Room Air 05/10/18 08:48 60 132/67 05/10/18 08:00 97.9 60 18 132/67 (88) 96 05/09/18 20:05 Room Air 05/09/18 16:00 98.2 68 19 134/80 (98) 96 Intake and Output 05/09/18 05/10/18 19:00 07:00 Intake Total 1320 ml Balance 1320 ml Intake Oral 1320 ml # Voids 3 2 Laboratory Tests Test 05/10/18 07:53 White Blood Count 15.7 K/UL (4.8-10.8) H Red Blood Count 4.18 M/UL (4.70-6.10) L Hemoglobin 12.5 G/DL (14.2-18.0) L Hematocrit 38.0 % (42.0-52.0) L Mean Corpuscular Volume 91 FL (80-99) Mean Corpuscular Hemoglobin 29.9 PG (27.0-31.0) Mean Corpuscular Hemoglobin Concent 32.9 G/DL (32.0-36.0) Red Cell Distribution Width 15.0 % (11.6-14.8) H Platelet Count 443 K/UL (150-450) Mean Platelet Volume 6.0 FL (6.5-10.1) L Neutrophils (%) (Auto) 60.6 % (45.0-75.0) Lymphocytes (%) (Auto) 33.0 % (20.0-45.0) Monocytes (%) (Auto) 4.9 % (1.0-10.0) Eosinophils (%) (Auto) 0.4 % (0.0-3.0) Basophils (%) (Auto) 1.0 % (0.0-2.0) Sodium Level 141 MMOL/L (136-145) Potassium Level 3.6 MMOL/L (3.5-5.1) Chloride Level 103 MMOL/L (98-107) Carbon Dioxide Level 29 MMOL/L (21-32) Anion Gap 9 mmol/L (5-15) Blood Urea Nitrogen 20 mg/dL (7-18) H Creatinine 0.9 MG/DL (0.55-1.30) Estimat Glomerular Filtration Rate > 60 mL/min (>60) Glucose Level 95 MG/DL (74-106) Calcium Level 9.3 MG/DL (8.5-10.1) Objective HEAD AND NECK: No JVD. The right side of his face scar is covered now LUNGS: Clear CARDIOVASCULAR: RRR. No GRM ABDOMEN: Soft EXTREMITIES: No edema. Teto Branch MD May 10, 2018 12:21
--- NOTE | 2018-05-10 12:41 | Nephrology Progress Note ---
Assessment/Plan Problem List: (1) Dehydration (2) HTN (hypertension) (3) Failure to thrive in adult (4) Schizophrenia Assessment WBC now wnl (1) Dysphasia (2) Encounter for PEG (percutaneous endoscopic gastrostomy) (3) Schizophrenia (4) Failure to thrive in adult (5) Generalized weakness (6) Severe malnutrition (7) Dehydration (8) Schizophrenia (9) HTN (10) Legally Blind Plan Flomax Psych mangement per consultants ? DC planning Subjective ROS Limited/Unobtainable: No Constitutional: Reports: malaise Objective Objective Last 24 Hour Vital Signs Date Time Temp Pulse Resp B/P (MAP) Pulse Ox O2 Delivery O2 Flow Rate FiO2 05/10/18 12:00 97.7 70 20 121/76 (91) 93 05/10/18 09:00 Room Air 05/10/18 08:48 60 132/67 05/10/18 08:00 97.9 60 18 132/67 (88) 96 05/09/18 20:05 Room Air 05/09/18 16:00 98.2 68 19 134/80 (98) 96 Intake and Output 05/09/18 05/10/18 19:00 07:00 Intake Total 1320 ml Balance 1320 ml Intake Oral 1320 ml # Voids 3 2 Laboratory Tests 05/10/18 07:53: White Blood Count 15.7H, Red Blood Count 4.18L, Hemoglobin 12.5L, Hematocrit 38.0L, Mean Corpuscular Volume 91, Mean Corpuscular Hemoglobin 29.9, Mean Corpuscular Hemoglobin Concent 32.9, Red Cell Distribution Width 15.0H, Platelet Count 443, Mean Platelet Volume 6.0L, Neutrophils (%) (Auto) 60.6, Lymphocytes (%) (Auto) 33.0, Monocytes (%) (Auto) 4.9, Eosinophils (%) (Auto) 0.4, Basophils (%) (Auto) 1.0, Sodium Level 141, Potassium Level 3.6, Chloride Level 103, Carbon Dioxide Level 29, Anion Gap 9, Blood Urea Nitrogen 20H, Creatinine 0.9, Estimat Glomerular Filtration Rate > 60, Glucose Level 95, Calcium Level 9.3 Height (Feet): 5 Height (Inches): 10.00 Weight (Pounds): 160 General Appearance: no apparent distress Objective no change Fouladian,Al MD May 10, 2018 12:41
[2018-05-10] MEDS ORDERED: Norco 5mg/325mg tab ORAL PRN (12:50)
--- NOTE | 2018-05-10 13:11 | Pulmonology Progress Note ---
Assessment/Plan Problems: (1) Failure to thrive in adult (2) UTI (urinary tract infection) (3) HTN (hypertension) (4) Severe malnutrition (5) Generalized weakness (6) Constipation Assessment/Plan add pain meds no new complains all meds and notes reviewed d/w nurse. Subjective Allergies: Coded Allergies: BENZTROPINE (Unverified Allergy, Unknown, 02/22/14) HALOPERIDOL (Unverified Allergy, Unknown, 02/22/14) PENICILLINS (Unverified Allergy, Unknown, 04/14/18) tolerated Ceftriaxone 06/2017 Objective Last 24 Hour Vital Signs Date Time Temp Pulse Resp B/P (MAP) Pulse Ox O2 Delivery O2 Flow Rate FiO2 05/10/18 12:00 97.7 70 20 121/76 (91) 93 05/10/18 09:00 Room Air 05/10/18 08:48 60 132/67 05/10/18 08:00 97.9 60 18 132/67 (88) 96 05/09/18 20:05 Room Air 05/09/18 16:00 98.2 68 19 134/80 (98) 96 Intake and Output 05/09/18 05/10/18 19:00 07:00 Intake Total 1320 ml Balance 1320 ml Intake Oral 1320 ml # Voids 3 2 General Appearance: cachetic HEENT: normocephalic, atraumatic Respiratory/Chest: chest wall non-tender, normal breath sounds Cardiovascular: normal peripheral pulses, normal rate Abdomen: normal bowel sounds, soft, non tender Genitourinary: normal external genitalia Extremities: no clubbing Skin: no rash Laboratory Tests 05/10/18 07:53: White Blood Count 15.7H, Red Blood Count 4.18L, Hemoglobin 12.5L, Hematocrit 38.0L, Mean Corpuscular Volume 91, Mean Corpuscular Hemoglobin 29.9, Mean Corpuscular Hemoglobin Concent 32.9, Red Cell Distribution Width 15.0H, Platelet Count 443, Mean Platelet Volume 6.0L, Neutrophils (%) (Auto) 60.6, Lymphocytes (%) (Auto) 33.0, Monocytes (%) (Auto) 4.9, Eosinophils (%) (Auto) 0.4, Basophils (%) (Auto) 1.0, Sodium Level 141, Potassium Level 3.6, Chloride Level 103, Carbon Dioxide Level 29, Anion Gap 9, Blood Urea Nitrogen 20H, Creatinine 0.9, Estimat Glomerular Filtration Rate > 60, Glucose Level 95, Calcium Level 9.3 Current Medications Medications (Trade) Dose Ordered Sig/Jordi Route PRN Reason Start Time Stop Time Status Last Admin Dose Admin Acetaminophen/ Hydrocodone Bitart ([place] 5/325) 1 tab Q4H PRN ORAL Moderate Pain (Pain Scale 4-6) 05/10/18 12:50 05/17/18 12:49 Amlodipine Besylate (Norvasc) 5 mg DAILY ORAL 05/06/18 09:00 05/14/18 08:59 05/10/18 08:48 Docusate Sodium (Colace) 100 mg TWICE A DAY ORAL 05/07/18 18:00 06/06/18 17:59 05/10/18 08:47 Famotidine (Pepcid) 20 mg BID ORAL 05/05/18 18:00 05/18/18 17:59 05/10/18 08:47 Heparin Sodium (Porcine) (Heparin 5000 units/ml) 5,000 units EVERY 12 HOURS SUBQ 05/05/18 21:00 05/14/18 08:59 05/07/18 08:29 Olanzapine (ZyPREXA) 10 mg TID ORAL 05/05/18 18:00 05/25/18 17:59 05/10/18 12:16 Phosphorus (Phospha 250 Neutral) 500 mg THREE TIMES A DAY ORAL 05/05/18 18:00 05/20/18 17:59 05/10/18 12:16 Polyethylene Glycol (Miralax) 17 gm DAILYPRN PRN ORAL Constipation 05/07/18 16:00 06/06/18 15:59 05/07/18 17:35 Quetiapine Fumarate (SEROquel) 150 mg EVERY 8 HOURS ORAL 05/05/18 22:00 05/21/18 05:59 05/09/18 05:44 Tamsulosin HCl (Flomax) 0.4 mg BEDTIME ORAL 05/05/18 21:00 05/16/18 20:59 05/08/18 21:07 Waleska Thornton MD May 10, 2018 13:11
--- NOTE | 2018-05-10 14:04 | Infectious Diseases Prog Note ---
Assessment/Plan Assessment/Plan Assessment/Plan Sepsis- ?source- r/o UTI, PNA- now resolved Afebrile Leukocytosis Increased 04/27/18 , recurrent- r/o Cdiff, RACHNA -CXR 04/28: No acute findings Unclear source no sign of active infection resection of carcinoma from right side of face/eye Wnd Cx : GPC -hx of superinfected necrotic mass and possible micro abscess s/p Tx 06/2017 -wound cx MRSA, diphterouids, ESBL Proteus 04/14/19 Wound Cx Providencia and MRSA FTT COPD dysphasia schizophrenia HTN MDD legally blind hx of VRE/MRSA colonization Plan: - Monitor off abx unless febrile, increasing leukocytosis and/or HD instability - 04/24/18 SP PO Bactrim DS BID - 04/20/18 SP empiric Azactam , Flagyl and IV Vanco d# 6/10 - 04/15/18 SP Ceftriaxone d# 2 -u/a w/ reflex, Bcx x2, CXR, -Cdiff if diarrhea -Monitor CBC/CMP, temperatures -CBC, CMP, amylase, lipase am Subjective Allergies: Coded Allergies: BENZTROPINE (Unverified Allergy, Unknown, 02/22/14) HALOPERIDOL (Unverified Allergy, Unknown, 02/22/14) PENICILLINS (Unverified Allergy, Unknown, 04/14/18) tolerated Ceftriaxone 06/2017 Subjective afebrile leukocytosis to 15 today Objective Vital Signs Last 24 Hour Vital Signs Date Time Temp Pulse Resp B/P (MAP) Pulse Ox O2 Delivery O2 Flow Rate FiO2 05/10/18 12:00 97.7 70 20 121/76 (91) 93 05/10/18 09:00 Room Air 05/10/18 08:48 60 132/67 05/10/18 08:00 97.9 60 18 132/67 (88) 96 05/09/18 20:05 Room Air 05/09/18 16:00 98.2 68 19 134/80 (98) 96 Height (Feet): 5 Height (Inches): 10.00 Weight (Pounds): 160 Objective General: NAD, irritable HEENT: NCAT, right eye with large ulcer no surrounding erythema or purulence but scar and some necrotic tissue present, left eye - visible cataract, glassy/ hazy appearance Respiratory: CATB, No W/C Cardiovascular no edema, tachycardia Gastrointestinal: normal bowel sounds, non tender, soft Laboratory Tests Test 05/10/18 07:53 White Blood Count 15.7 K/UL (4.8-10.8) H Red Blood Count 4.18 M/UL (4.70-6.10) L Hemoglobin 12.5 G/DL (14.2-18.0) L Hematocrit 38.0 % (42.0-52.0) L Mean Corpuscular Volume 91 FL (80-99) Mean Corpuscular Hemoglobin 29.9 PG (27.0-31.0) Mean Corpuscular Hemoglobin Concent 32.9 G/DL (32.0-36.0) Red Cell Distribution Width 15.0 % (11.6-14.8) H Platelet Count 443 K/UL (150-450) Mean Platelet Volume 6.0 FL (6.5-10.1) L Neutrophils (%) (Auto) 60.6 % (45.0-75.0) Lymphocytes (%) (Auto) 33.0 % (20.0-45.0) Monocytes (%) (Auto) 4.9 % (1.0-10.0) Eosinophils (%) (Auto) 0.4 % (0.0-3.0) Basophils (%) (Auto) 1.0 % (0.0-2.0) Sodium Level 141 MMOL/L (136-145) Potassium Level 3.6 MMOL/L (3.5-5.1) Chloride Level 103 MMOL/L (98-107) Carbon Dioxide Level 29 MMOL/L (21-32) Anion Gap 9 mmol/L (5-15) Blood Urea Nitrogen 20 mg/dL (7-18) H Creatinine 0.9 MG/DL (0.55-1.30) Estimat Glomerular Filtration Rate > 60 mL/min (>60) Glucose Level 95 MG/DL (74-106) Calcium Level 9.3 MG/DL (8.5-10.1) Current Medications Medications (Trade) Dose Ordered Sig/Jordi Route PRN Reason Start Time Stop Time Status Last Admin Dose Admin Acetaminophen/ Hydrocodone Bitart ([place] 5/325) 1 tab Q4H PRN ORAL Moderate Pain (Pain Scale 4-6) 05/10/18 12:50 05/17/18 12:49 Amlodipine Besylate (Norvasc) 5 mg DAILY ORAL 05/06/18 09:00 05/14/18 08:59 05/10/18 08:48 Docusate Sodium (Colace) 100 mg TWICE A DAY ORAL 05/07/18 18:00 06/06/18 17:59 05/10/18 08:47 Famotidine (Pepcid) 20 mg BID ORAL 05/05/18 18:00 05/18/18 17:59 05/10/18 08:47 Heparin Sodium (Porcine) (Heparin 5000 units/ml) 5,000 units EVERY 12 HOURS SUBQ 05/05/18 21:00 05/14/18 08:59 05/07/18 08:29 Olanzapine (ZyPREXA) 10 mg TID ORAL 05/05/18 18:00 05/25/18 17:59 05/10/18 12:16 Phosphorus (Phospha 250 Neutral) 500 mg THREE TIMES A DAY ORAL 05/05/18 18:00 05/20/18 17:59 05/10/18 12:16 Polyethylene Glycol (Miralax) 17 gm DAILYPRN PRN ORAL Constipation 05/07/18 16:00 06/06/18 15:59 05/07/18 17:35 Quetiapine Fumarate (SEROquel) 150 mg EVERY 8 HOURS ORAL 05/05/18 22:00 05/21/18 05:59 05/10/18 13:38 Tamsulosin HCl (Flomax) 0.4 mg BEDTIME ORAL 05/05/18 21:00 05/16/18 20:59 05/08/18 21:07 Carmella Spring M.D. May 10, 2018 14:04
--- NOTE | 2018-05-10 14:26 | General Progress Note ---
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 SNOMED: 83732870 (2) Basal cell carcinoma ICD Codes: C44.91 - Basal cell carcinoma of skin, unspecified SNOMED: 995498534 (3) Generalized weakness ICD Codes: R53.1 - Weakness SNOMED: 26726712 (4) Cellulitis and abscess of face ICD Codes: L03.211 - Cellulitis of face; L02.01 - Cutaneous abscess of face SNOMED: 274427735 (5) Severe malnutrition ICD Codes: E43 - Unspecified severe protein-calorie malnutrition SNOMED: 32720782 (6) Failure to thrive in adult ICD Codes: R62.7 - Adult failure to thrive SNOMED: 444029432 (7) HTN (hypertension) ICD Codes: I10 - Essential (primary) hypertension SNOMED: 83620139 (8) UTI (urinary tract infection) ICD Codes: N39.0 - Urinary tract infection, site not specified SNOMED: 96944805 Status: stable, progressing Assessment/Plan pt diet abx prn cbc bmp am dc if clear Subjective Constitutional: Reports: weakness Allergies: Coded Allergies: BENZTROPINE (Unverified Allergy, Unknown, 02/22/14) HALOPERIDOL (Unverified Allergy, Unknown, 02/22/14) PENICILLINS (Unverified Allergy, Unknown, 04/14/18) tolerated Ceftriaxone 06/2017 All Systems: reviewed and negative except above Subjective sleepy calm Objective Last 24 Hour Vital Signs Date Time Temp Pulse Resp B/P (MAP) Pulse Ox O2 Delivery O2 Flow Rate FiO2 05/10/18 12:00 97.7 70 20 121/76 (91) 93 05/10/18 09:00 Room Air 05/10/18 08:48 60 132/67 05/10/18 08:00 97.9 60 18 132/67 (88) 96 05/09/18 20:05 Room Air 05/09/18 16:00 98.2 68 19 134/80 (98) 96 Intake and Output 05/09/18 05/10/18 19:00 07:00 Intake Total 1320 ml Balance 1320 ml Intake Oral 1320 ml # Voids 3 2 Laboratory Tests 05/10/18 07:53: White Blood Count 15.7H, Red Blood Count 4.18L, Hemoglobin 12.5L, Hematocrit 38.0L, Mean Corpuscular Volume 91, Mean Corpuscular Hemoglobin 29.9, Mean Corpuscular Hemoglobin Concent 32.9, Red Cell Distribution Width 15.0H, Platelet Count 443, Mean Platelet Volume 6.0L, Neutrophils (%) (Auto) 60.6, Lymphocytes (%) (Auto) 33.0, Monocytes (%) (Auto) 4.9, Eosinophils (%) (Auto) 0.4, Basophils (%) (Auto) 1.0, Sodium Level 141, Potassium Level 3.6, Chloride Level 103, Carbon Dioxide Level 29, Anion Gap 9, Blood Urea Nitrogen 20H, Creatinine 0.9, Estimat Glomerular Filtration Rate > 60, Glucose Level 95, Calcium Level 9.3 Height (Feet): 5 Height (Inches): 10.00 Weight (Pounds): 160 General Appearance: lethargic EENT: normal ENT inspection Neck: normal alignment Cardiovascular: normal peripheral pulses, normal rate, regular rhythm Respiratory/Chest: chest wall non-tender, lungs clear, normal breath sounds Abdomen: normal bowel sounds, non tender, soft Extremities: normal inspection Edema: no edema noted Arm (L), no edema noted Arm (R), no edema noted Leg (L), no edema noted Leg (R), no edema noted Pedal (L), no edema noted Pedal (R), no edema noted Generalized Neurologic: motor weakness Skin: normal pigmentation, warm/dry Julio Higgins DO May 10, 2018 14:26
--- NOTE | 2018-05-10 14:52 | NUR ---
NURSE NOTES: Urine analysis and stool to be collected, container left at the bed side, assistant chief nursing officer Dandy notified. Will follow up on that.
--- NOTE | 2018-05-10 15:02 | NUR ---
RADIOLOGY DEPT [facility] X-RAY DONE.-P.DYE
[2018-05-10 16:00] VITALS: BP 121/75
--- NOTE | 2018-05-10 16:14 | NUR ---
NURSE NOTES: Rick, from lab said, Patient refused the stat blood culture order that Dr Spring ordered. Dr Spring notified.
--- NOTE | 2018-05-10 16:52 | Diagnostic Imaging Report ---
Indication: Cough Technique: One view of the chest Comparison: 04/28/2018 Findings: Less optimal inspiration currently, elevated right hemidiaphragm, both of which result in crowding of the bronchovascular markings. No definite acute infiltrates, effusions, or congestion. Normal heart size. The aorta is tortuous. Upper mediastinum is unremarkable Impression: Hypoventilatory exam. No definite acute process
--- NOTE | 2018-05-10 17:42 | NUR ---
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 98.4 HR 104 RR 20 B/P 120/75 RA O2 SAT 2 98% WBC 15.7 BUN 20 IS: SEROQUEL PO HEPARIN SUBC FLOMAX PO PLACEMENT PENDING MED/SURG STATUS
--- NOTE | 2018-05-10 19:25 | General Progress Note ---
Assessment/Plan Assessment/Plan # Leukocytosis. Secondary to underlying infection, sepsis of R eye/hx malignancy that side --> Monitor and trend wbc for improvement -->16.6-->23.0-->31.5-->9.2-->11.2-->22.9-->10-->15 --> Peripheral smear has been reviewed, no blasts noted --> Medications have been reviewed --> Imaging has been reviewed --> cont on abx, empiric treatment --> per ID management # Carcinoma resection of from right side of face/eye --> as per outpatient onc # Anemia of chronic disease --> anemia panel has been reviewed --> trend hgb 12.8-->10.2-->10 # FTT --> refusing care --> defer peg tube given improvement in po intake --> calorie counts and weights weekly --> mirtazpine as needed # Sepsis. improved # H/O superinfected necrotic mass and possible micro abscess s/p Tx 06/2017 # Wound. # COPD. # Dysphasia # Schizophrenia # HTN. # Legally blind Time and date note entered in EMR does not reflect time and date of encounter. GREATLY APPRECIATE CONSULTATION. Subjective Constitutional: Denies: no symptoms, chills, diaphoresis, fever, malaise, weakness, other HEENT: Denies: no symptoms, eye pain, blurred vision, tearing, double vision, ear pain, ear discharge, nose pain, nose congestion, throat pain, throat swelling, mouth pain, mouth swelling, other Cardiovascular: Denies: no symptoms, chest pain, edema, irregular heart rate, lightheadedness, palpitations, syncope, other Respiratory: Denies: no symptoms, cough, orthopnea, shortness of breath, SOB with excertion, SOB at rest, sputum, stridor, wheezing, other Gastrointestinal/Abdominal: Denies: no symptoms, abdomen distended, abdominal pain, black stools, tarry stools, blood in stool, constipated, diarrhea, difficulty swallowing, nausea, poor appetite, poor fluid intake, rectal bleeding , vomiting, other Genitourinary: Denies: no symptoms, burning, discharge, frequency, flank pain, hematuria, incontinence, pain, urgency, other Neurologic/Psychiatric: Denies: no symptoms, anxiety, depressed, emotional problems, headache, numbness, paresthesia, pre-existing deficit, seizure, tingling, tremors, weakness, other Endocrine: Denies: no symptoms, excessive sweating, flushing, intolerance to cold, intolerance to heat, increased hunger, increased thirst, increased urine, unexplained weight gain, unexplained weight loss, other Allergies: Coded Allergies: BENZTROPINE (Unverified Allergy, Unknown, 02/22/14) HALOPERIDOL (Unverified Allergy, Unknown, 02/22/14) PENICILLINS (Unverified Allergy, Unknown, 04/14/18) tolerated Ceftriaxone 06/2017 Subjective 04/15: Pt awake and agitated. No acute events. Pt refusing meds. 04/16: wbc severely elevated, seen by Id, on broad spectrum antifungals, foul language, very aggressive 04/18: no events, mumbling, minimally conversive, no fevers, down on ivf 04/19: pt is awake and resting in bed. refusing care, aggressive, no events 04/20: Pt is awake and alert, refusing care, minimally conversive, on abx, wbc have improved. 04/21: Pt is awake and resting in bed, aggressive, mumbling, 04/22: Pt is resting in bed. PEG has been defered, the patient has shown improvement in caloric intake and shows no signs of dysphagia or risk for aspiration. 04/23: Pt is seen in the room, resting in bed, refusing care, on abx, pending labs 17/: No events, has been agitated overnight, refusing care 04/25: Pt is awake and resting in bed, refusing labs, agitated, screaming, refusing care 04/26: no major events, no fevers or chills, no chest pain or sob 04/27: pt is seen by bedside, awake and comfortable, wbc is at 22.9 today. 04/28: peg has been deferred, gi recs reviewed, no events, slightly agitated 04/29: no events, refusing care, no change other, remains aggressive, says "don' t touch me" 04/30: continues to cuss out, rn by bedside with conservator and able to chnage wound on eye R 05/01: Pt is awake and calm, alert oriented x1, remains afebrile off abx and leukocytosis resolved 05/02: Pt is seen by bedside, awake and calm, no events. pending labs 05/03: Pt is alert and oriented x1, remains afebrile off abx and leukocytosis resolved 05/04: accepted at [facility] as early as today 05/05: pt came back from [facility]. They were unable to accept the pt due to pt's agitation worsenin 05/09: Pt is awake, seen by bedside, pending placement, no events 05/10: no fevers noted, no chills, getting abx, but refuisng blood draws Objective Last 24 Hour Vital Signs Date Time Temp Pulse Resp B/P (MAP) Pulse Ox O2 Delivery O2 Flow Rate FiO2 05/10/18 16:00 98.4 104 20 121/75 (90) 93 05/10/18 12:00 97.7 70 20 121/76 (91) 93 05/10/18 09:00 Room Air 05/10/18 08:48 60 132/67 05/10/18 08:00 97.9 60 18 132/67 (88) 96 05/09/18 20:05 Room Air Intake and Output 05/09/18 05/10/18 19:00 07:00 Intake Total 1320 ml Balance 1320 ml Intake Oral 1320 ml # Voids 3 2 Laboratory Tests 05/10/18 07:53: White Blood Count 15.7H, Red Blood Count 4.18L, Hemoglobin 12.5L, Hematocrit 38.0L, Mean Corpuscular Volume 91, Mean Corpuscular Hemoglobin 29.9, Mean Corpuscular Hemoglobin Concent 32.9, Red Cell Distribution Width 15.0H, Platelet Count 443, Mean Platelet Volume 6.0L, Neutrophils (%) (Auto) 60.6, Lymphocytes (%) (Auto) 33.0, Monocytes (%) (Auto) 4.9, Eosinophils (%) (Auto) 0.4, Basophils (%) (Auto) 1.0, Sodium Level 141, Potassium Level 3.6, Chloride Level 103, Carbon Dioxide Level 29, Anion Gap 9, Blood Urea Nitrogen 20H, Creatinine 0.9, Estimat Glomerular Filtration Rate > 60, Glucose Level 95, Calcium Level 9.3 Height (Feet): 5 Height (Inches): 10.00 Weight (Pounds): 160 Objective Vitals: Have been reviewed General Appearance: alert, agitated Head: normocephalic, atraumatic Eyes: right eye abnormal pupil - right eye has patch which covers the right temporal area of face as well from cancer ressection; left eye other - visible cataract, glassy/hazy appearance, unchanged ENT: hearing grossly normal, other Neck: full range of motion Respiratory: chest non-tender, lungs clear Cardiovascular no edema, tachycardia Gastrointestinal: normal bs, non tender, soft MSK: back normal, non-tender, bilateral hand contractures Skin: normal color, no rash, warm/dry Jr Daly MD May 10, 2018 19:25
--- NOTE | 2018-05-10 19:36 | NUR ---
HAND-OFF: Report given to ANISH Hodge.
--- NOTE | 2018-05-10 19:45 | NUR ---
NURSE NOTES: Received report from ANISH Powell. Patient is awake lying semi-vieira's; resting comfortably. No signs of acute distress noted; denies pain at this time. AOx1-2; able to make needs known. No IV site noted as per patient's request. Bed at lowest position, brakes on, siderails up x3. Call light within reach. Will continue to monitor.
[2018-05-10] MEDS: Tamsulosin 0.4mg cap ORAL SCH (21:00)
--- NOTE | 2018-05-10 21:08 | NUR ---
NURSE NOTES: Patient strongly refusing to be touched for physical assessment. Risks and benefits explained x3; still refusing.
--- NOTE | 2018-05-11 00:44 | NUR ---
HAND-OFF: Report given to ANISH Aj. Patient is asleep lying semi-vieira's; resting comfortably. In stable condition.
--- NOTE | 2018-05-11 01:09 | NUR ---
NURSE NOTES: Received report on a patient from Denise OCONNELL, patient is in his bed, asleep, doesn't want to be touched, no acute distress noted. Will continue to monitor for safety and comfort.
--- NOTE | 2018-05-11 07:18 | NUR ---
HAND-OFF: Report given to Jai OCONNELL.
--- NOTE | 2018-05-11 07:19 | NUR ---
NURSE NOTES: Patient alert x1, in room air, no sign of distress and shortness of breath; incontinent x2. NO IV access and MD aware. Stool and urine collection pending, and will try to collect, operations assistant Renee notified, and collecting containers at the bed side. Side rails up x2, breaks engaged, bed at lowest position. Will keep monitoring.
--- NOTE | 2018-05-11 07:58 | NUR ---
NURSE NOTES: Patient refused blood draw. Will encourage patient.
[2018-05-11 08:00] VITALS: BP 145/85
[2018-05-11] MEDS: Heparin 5000 units/ml inj SUBQ SCH ×2 (08:00→21:00)
[2018-05-11] MEDS: OLANZapine 10mg tab ORAL SCH ×3 (08:24→17:47)
[2018-05-11] MEDS: Phospha 250 Neutral tab ORAL SCH ×3 (08:24→17:47)
[2018-05-11] MEDS: Docusate 100mg cap ORAL SCH ×2 (08:24→17:48)
--- NOTE | 2018-05-11 11:42 | NUR ---
NURSE NOTES: Patient refused blood draw for lab x2. Dr Higgins is aware.
--- NOTE | 2018-05-11 11:48 | NUR ---
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 97.7 HR104 RR 20 B/P 145/83 RA 98% IS: HEPARIN SUBC SEROQUEL PO FLOMAX PO PREVACID PO ZYPREXA PO PLACEMENT PENDING MED/SURGE STATUS
[2018-05-11 12:00] VITALS: BP 135/92
--- NOTE | 2018-05-11 12:21 | Infectious Diseases Prog Note ---
Assessment/Plan Assessment/Plan Assessment/Plan Sepsis- ?source- r/o UTI, PNA- now resolved Afebrile Leukocytosis Increased 04/27/18 , recurrent- r/o Cdiff, RACHNA -CXR 05/09 :Hypoventilatory exam. No definite acute process -CXR 04/28: No acute findings Unclear source no sign of active infection resection of carcinoma from right side of face/eye Wnd Cx : GPC -hx of superinfected necrotic mass and possible micro abscess s/p Tx 06/2017 -wound cx MRSA, diphterouids, ESBL Proteus 04/14/19 Wound Cx Providencia and MRSA FTT COPD dysphasia schizophrenia HTN MDD legally blind hx of VRE/MRSA colonization Plan: - Monitor off abx unless febrile, increasing leukocytosis and/or HD instability (patient refusing blood draws) - 04/24/18 SP PO Bactrim DS BID - 04/20/18 SP empiric Azactam , Flagyl and IV Vanco d# 6/10 - 04/15/18 SP Ceftriaxone d# 2 -f/u u/a w/ reflex, Bcx x2 (rfused Bcx) -Cdiff if diarrhea -Monitor CBC/CMP, temperatures -CBC, CMP, amylase, lipase am (refused labs) Subjective Allergies: Coded Allergies: BENZTROPINE (Unverified Allergy, Unknown, 02/22/14) HALOPERIDOL (Unverified Allergy, Unknown, 02/22/14) PENICILLINS (Unverified Allergy, Unknown, 04/14/18) tolerated Ceftriaxone 06/2017 Subjective afebrile pt refusing blood draws Objective Vital Signs Last 24 Hour Vital Signs Date Time Temp Pulse Resp B/P (MAP) Pulse Ox O2 Delivery O2 Flow Rate FiO2 05/11/18 12:00 98.1 98 20 135/92 (106) 96 05/11/18 09:00 Room Air 05/11/18 08:24 104 145/85 05/11/18 08:00 97.7 104 20 145/85 (105) 95 05/10/18 16:00 98.4 104 20 121/75 (90) 93 Height (Feet): 5 Height (Inches): 10.00 Weight (Pounds): 160 Objective General: NAD, irritable HEENT: NCAT, right eye with large ulcer no surrounding erythema or purulence but scar and some necrotic tissue present, left eye - visible cataract, glassy/ hazy appearance Respiratory: CATB, No W/C Cardiovascular no edema, tachycardia Gastrointestinal: normal bowel sounds, non tender, soft Current Medications Medications (Trade) Dose Ordered Sig/Jordi Route PRN Reason Start Time Stop Time Status Last Admin Dose Admin Acetaminophen/ Hydrocodone Bitart ([place] 5/325) 1 tab Q4H PRN ORAL Moderate Pain (Pain Scale 4-6) 05/10/18 12:50 05/17/18 12:49 Amlodipine Besylate (Norvasc) 5 mg DAILY ORAL 05/06/18 09:00 05/14/18 08:59 05/11/18 08:24 Docusate Sodium (Colace) 100 mg TWICE A DAY ORAL 05/07/18 18:00 06/06/18 17:59 05/11/18 08:24 Famotidine (Pepcid) 20 mg BID ORAL 05/05/18 18:00 05/18/18 17:59 05/11/18 08:24 Heparin Sodium (Porcine) (Heparin 5000 units/ml) 5,000 units EVERY 12 HOURS SUBQ 05/05/18 21:00 05/14/18 08:59 05/07/18 08:29 Olanzapine (ZyPREXA) 10 mg TID ORAL 05/05/18 18:00 05/25/18 17:59 05/11/18 08:24 Phosphorus (Phospha 250 Neutral) 500 mg THREE TIMES A DAY ORAL 05/05/18 18:00 05/20/18 17:59 05/11/18 08:24 Polyethylene Glycol (Miralax) 17 gm DAILYPRN PRN ORAL Constipation 05/07/18 16:00 06/06/18 15:59 05/07/18 17:35 Quetiapine Fumarate (SEROquel) 150 mg EVERY 8 HOURS ORAL 05/05/18 22:00 05/21/18 05:59 05/11/18 05:29 Tamsulosin HCl (Flomax) 0.4 mg BEDTIME ORAL 05/05/18 21:00 05/16/18 20:59 05/08/18 21:07 Carmella Spring M.D. May 11, 2018 12:21
--- NOTE | 2018-05-11 12:27 | NUR ---
NURSE NOTES: Dr Higgins informed me to let Dr Blackmon know about patient's refusal for labs. I communicated Dr Blackmon. Waiting for order.
--- NOTE | 2018-05-11 12:44 | GI Progress Note ---
Assessment/Plan Problems: (1) Failure to thrive in adult ICD Codes: R62.7 - Adult failure to thrive SNOMED: 905711829 (2) Severe malnutrition ICD Codes: E43 - Unspecified severe protein-calorie malnutrition SNOMED: 01353909 (3) Schizophreniform psychosis ICD Codes: F20.9 - Schizophreniform psychosis SNOMED: 70077690 (4) Cellulitis and abscess of face ICD Codes: L03.211 - Cellulitis of face; L02.01 - Cutaneous abscess of face SNOMED: 958548383 (5) Constipation ICD Codes: K59.00 - Constipation, unspecified SNOMED: 75306211 Status: stable Status Narrative Discussed with Dr. Ferguson Assessment/Plan psych f/u defer PEG, the patient has shown improvement in caloric intake and shows no signs of dysphagia or risk for aspiration. Patient on regular diet push p.o. One-to-one feeder IV/p.o. hydration Antibiotics PPI Bowel regimen, refused Senokot Follow-up labs The patient was seen and examined at bedside and all new and available data was reviewed in the patients chart. I agree with the above findings, impression and plan. (Patient seen earlier today. Signature stamp does not reflect patient encounter time.). - Juliocesar Ferguson MD Subjective Subjective Limited Objective Last 24 Hour Vital Signs Date Time Temp Pulse Resp B/P (MAP) Pulse Ox O2 Delivery O2 Flow Rate FiO2 05/11/18 12:00 98.1 98 20 135/92 (106) 96 05/11/18 09:00 Room Air 05/11/18 08:24 104 145/85 05/11/18 08:00 97.7 104 20 145/85 (105) 95 05/10/18 16:00 98.4 104 20 121/75 (90) 93 Intake and Output 05/10/18 05/11/18 19:00 07:00 Intake Total 600 ml Balance 600 ml Intake Oral 600 ml # Voids 6 3 # Bowel Movements 1 Height (Feet): 5 Height (Inches): 10.00 Weight (Pounds): 160 General Appearance: WD/WN, no apparent distress, alert Cardiovascular: normal rate Respiratory/Chest: normal breath sounds, no respiratory distress Abdominal Exam: normal bowel sounds, non tender, soft Extremities: normal range of motion, non-tender Objective Legally blind Tory SaavedraKeven LEGAL DIRECTOR May 11, 2018 12:44
--- NOTE | 2018-05-11 13:40 | General Progress Note ---
Assessment/Plan Assessment/Plan # Leukocytosis. Secondary to underlying infection, sepsis of R eye/hx malignancy that side --> Monitor and trend wbc for improvement -->16.6-->23.0-->31.5-->9.2-->11.2-->22.9-->10-->15 --> Peripheral smear has been reviewed, no blasts noted --> Medications have been reviewed --> Imaging has been reviewed --> cont on abx, empiric treatment --> per ID management # Carcinoma resection of from right side of face/eye --> as per outpatient onc # Anemia of chronic disease --> anemia panel has been reviewed --> trend hgb 12.8-->10.2-->10 # FTT --> refusing care --> defer peg tube given improvement in po intake --> calorie counts and weights weekly --> mirtazpine as needed # Sepsis. improved # H/O superinfected necrotic mass and possible micro abscess s/p Tx 06/2017 # Wound. # COPD. # Dysphasia # Schizophrenia # HTN. # Legally blind Time and date note entered in EMR does not reflect time and date of encounter. GREATLY APPRECIATE CONSULTATION. Subjective Constitutional: Denies: no symptoms, chills, diaphoresis, fever, malaise, weakness, other HEENT: Denies: no symptoms, eye pain, blurred vision, tearing, double vision, ear pain, ear discharge, nose pain, nose congestion, throat pain, throat swelling, mouth pain, mouth swelling, other Cardiovascular: Denies: no symptoms, chest pain, edema, irregular heart rate, lightheadedness, palpitations, syncope, other Respiratory: Denies: no symptoms, cough, orthopnea, shortness of breath, SOB with excertion, SOB at rest, sputum, stridor, wheezing, other Gastrointestinal/Abdominal: Denies: no symptoms, abdomen distended, abdominal pain, black stools, tarry stools, blood in stool, constipated, diarrhea, difficulty swallowing, nausea, poor appetite, poor fluid intake, rectal bleeding , vomiting, other Endocrine: Denies: no symptoms, excessive sweating, flushing, intolerance to cold, intolerance to heat, increased hunger, increased thirst, increased urine, unexplained weight gain, unexplained weight loss, other Allergies: Coded Allergies: BENZTROPINE (Unverified Allergy, Unknown, 02/22/14) HALOPERIDOL (Unverified Allergy, Unknown, 02/22/14) PENICILLINS (Unverified Allergy, Unknown, 04/14/18) tolerated Ceftriaxone 06/2017 Subjective 04/15: Pt awake and agitated. No acute events. Pt refusing meds. 04/16: wbc severely elevated, seen by Id, on broad spectrum antifungals, foul language, very aggressive 04/18: no events, mumbling, minimally conversive, no fevers, down on ivf 04/19: pt is awake and resting in bed. refusing care, aggressive, no events 04/20: Pt is awake and alert, refusing care, minimally conversive, on abx, wbc have improved. 04/21: Pt is awake and resting in bed, aggressive, mumbling, 04/22: Pt is resting in bed. PEG has been defered, the patient has shown improvement in caloric intake and shows no signs of dysphagia or risk for aspiration. 04/23: Pt is seen in the room, resting in bed, refusing care, on abx, pending labs 17/: No events, has been agitated overnight, refusing care 04/25: Pt is awake and resting in bed, refusing labs, agitated, screaming, refusing care 04/26: no major events, no fevers or chills, no chest pain or sob 04/27: pt is seen by bedside, awake and comfortable, wbc is at 22.9 today. 04/28: peg has been deferred, gi recs reviewed, no events, slightly agitated 04/29: no events, refusing care, no change other, remains aggressive, says "don' t touch me" 04/30: continues to cuss out, rn by bedside with conservator and able to chnage wound on eye R 05/01: Pt is awake and calm, alert oriented x1, remains afebrile off abx and leukocytosis resolved 05/02: Pt is seen by bedside, awake and calm, no events. pending labs 05/03: Pt is alert and oriented x1, remains afebrile off abx and leukocytosis resolved 05/04: accepted at [facility] as early as today 05/05: pt came back from [facility]. They were unable to accept the pt due to pt's agitation worsenin 05/09: Pt is awake, seen by bedside, pending placement, no events 05/10: no fevers noted, no chills, getting abx, but refuisng blood draws 05/11: seen by bedside, awake and comfortable, no overnight events, refusing blood draws. Objective Last 24 Hour Vital Signs Date Time Temp Pulse Resp B/P (MAP) Pulse Ox O2 Delivery O2 Flow Rate FiO2 05/11/18 12:00 98.1 98 20 135/92 (106) 96 05/11/18 09:00 Room Air 05/11/18 08:24 104 145/85 05/11/18 08:00 97.7 104 20 145/85 (105) 95 05/10/18 16:00 98.4 104 20 121/75 (90) 93 Intake and Output 05/10/18 05/11/18 19:00 07:00 Intake Total 600 ml Balance 600 ml Intake Oral 600 ml # Voids 6 3 # Bowel Movements 1 Height (Feet): 5 Height (Inches): 10.00 Weight (Pounds): 160 Objective Vitals: Have been reviewed General Appearance: alert, agitated Head: normocephalic, atraumatic Eyes: right eye abnormal pupil - right eye has patch which covers the right temporal area of face as well from cancer ressection; left eye other - visible cataract, glassy/hazy appearance, unchanged ENT: hearing grossly normal, other Neck: full range of motion Respiratory: chest non-tender, lungs clear Cardiovascular no edema, tachycardia Gastrointestinal: normal bs, non tender, soft MSK: back normal, non-tender, bilateral hand contractures Skin: normal color, no rash, warm/dry Jr Daly MD May 11, 2018 13:40
--- NOTE | 2018-05-11 13:43 | Pulmonology Progress Note ---
Assessment/Plan Problems: (1) Failure to thrive in adult (2) UTI (urinary tract infection) (3) HTN (hypertension) (4) Severe malnutrition (5) Generalized weakness (6) Constipation Assessment/Plan add pain meds no new complains all meds and notes reviewed d/w nurse. dc planning Subjective ROS Limited/Unobtainable: No Allergies: Coded Allergies: BENZTROPINE (Unverified Allergy, Unknown, 02/22/14) HALOPERIDOL (Unverified Allergy, Unknown, 02/22/14) PENICILLINS (Unverified Allergy, Unknown, 04/14/18) tolerated Ceftriaxone 06/2017 Objective Last 24 Hour Vital Signs Date Time Temp Pulse Resp B/P (MAP) Pulse Ox O2 Delivery O2 Flow Rate FiO2 05/11/18 12:00 98.1 98 20 135/92 (106) 96 05/11/18 09:00 Room Air 05/11/18 08:24 104 145/85 05/11/18 08:00 97.7 104 20 145/85 (105) 95 05/10/18 16:00 98.4 104 20 121/75 (90) 93 Intake and Output 05/10/18 05/11/18 19:00 07:00 Intake Total 600 ml Balance 600 ml Intake Oral 600 ml # Voids 6 3 # Bowel Movements 1 Objective General Appearance: WD/WN HEENT: normocephalic, right eye patch Respiratory/Chest: chest wall non-tender, lungs clear Breasts: no masses Cardiovascular: normal peripheral pulses, normal rate Abdomen: normal bowel sounds, soft, non tender Extremities: no cyanosis Skin: no rash 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 Lymphatic: no neck adenopathy Current Medications Medications (Trade) Dose Ordered Sig/Jordi Route PRN Reason Start Time Stop Time Status Last Admin Dose Admin Acetaminophen/ Hydrocodone Bitart (Isabel 5/325) 1 tab Q4H PRN ORAL Moderate Pain (Pain Scale 4-6) 05/10/18 12:50 05/17/18 12:49 Amlodipine Besylate (Norvasc) 5 mg DAILY ORAL 05/06/18 09:00 05/14/18 08:59 05/11/18 08:24 Docusate Sodium (Colace) 100 mg TWICE A DAY ORAL 05/07/18 18:00 06/06/18 17:59 05/11/18 08:24 Famotidine (Pepcid) 20 mg BID ORAL 05/05/18 18:00 05/18/18 17:59 05/11/18 08:24 Heparin Sodium (Porcine) (Heparin 5000 units/ml) 5,000 units EVERY 12 HOURS SUBQ 05/05/18 21:00 05/14/18 08:59 05/07/18 08:29 Olanzapine (ZyPREXA) 10 mg TID ORAL 05/05/18 18:00 05/25/18 17:59 05/11/18 13:14 Phosphorus (Phospha 250 Neutral) 500 mg THREE TIMES A DAY ORAL 05/05/18 18:00 05/20/18 17:59 05/11/18 13:14 Polyethylene Glycol (Miralax) 17 gm DAILYPRN PRN ORAL Constipation 05/07/18 16:00 06/06/18 15:59 05/07/18 17:35 Quetiapine Fumarate (SEROquel) 150 mg EVERY 8 HOURS ORAL 05/05/18 22:00 05/21/18 05:59 05/11/18 13:15 Tamsulosin HCl (Flomax) 0.4 mg BEDTIME ORAL 05/05/18 21:00 05/16/18 20:59 05/08/18 21:07 Waleska Thornton MD May 11, 2018 13:43
--- NOTE | 2018-05-11 15:00 | General Progress Note ---
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 SNOMED: 58725270 (2) Basal cell carcinoma ICD Codes: C44.91 - Basal cell carcinoma of skin, unspecified SNOMED: 240088200 (3) Generalized weakness ICD Codes: R53.1 - Weakness SNOMED: 97486263 (4) Cellulitis and abscess of face ICD Codes: L03.211 - Cellulitis of face; L02.01 - Cutaneous abscess of face SNOMED: 335408007 (5) Severe malnutrition ICD Codes: E43 - Unspecified severe protein-calorie malnutrition SNOMED: 49639104 (6) Failure to thrive in adult ICD Codes: R62.7 - Adult failure to thrive SNOMED: 509341655 (7) HTN (hypertension) ICD Codes: I10 - Essential (primary) hypertension SNOMED: 71530391 (8) UTI (urinary tract infection) ICD Codes: N39.0 - Urinary tract infection, site not specified SNOMED: 18293406 Status: unchanged Assessment/Plan pt diet abx prn cbc bmp am dc if clear Subjective Constitutional: Reports: weakness Allergies: Coded Allergies: BENZTROPINE (Unverified Allergy, Unknown, 02/22/14) HALOPERIDOL (Unverified Allergy, Unknown, 02/22/14) PENICILLINS (Unverified Allergy, Unknown, 04/14/18) tolerated Ceftriaxone 06/2017 All Systems: reviewed and negative except above Subjective sleepy calm Objective Last 24 Hour Vital Signs Date Time Temp Pulse Resp B/P (MAP) Pulse Ox O2 Delivery O2 Flow Rate FiO2 05/11/18 12:00 98.1 98 20 135/92 (106) 96 05/11/18 09:00 Room Air 05/11/18 08:24 104 145/85 05/11/18 08:00 97.7 104 20 145/85 (105) 95 05/10/18 16:00 98.4 104 20 121/75 (90) 93 Intake and Output 05/10/18 05/11/18 19:00 07:00 Intake Total 600 ml Balance 600 ml Intake Oral 600 ml # Voids 6 3 # Bowel Movements 1 Height (Feet): 5 Height (Inches): 10.00 Weight (Pounds): 160 General Appearance: lethargic EENT: normal ENT inspection Neck: normal alignment Cardiovascular: normal peripheral pulses, normal rate, regular rhythm Respiratory/Chest: chest wall non-tender, lungs clear, normal breath sounds Abdomen: normal bowel sounds, non tender, soft Extremities: normal inspection Edema: no edema noted Arm (L), no edema noted Arm (R), no edema noted Leg (L), no edema noted Leg (R), no edema noted Pedal (L), no edema noted Pedal (R), no edema noted Generalized Neurologic: motor weakness Skin: normal pigmentation, warm/dry Julio Higgins DO May 11, 2018 15:00
--- NOTE | 2018-05-11 15:12 | Cardiac Electrophysiology PN ---
Assessment/Plan Assessment/Plan 1. Sinus tachycardia. Due to anxiety and infection. Resolved 2. Hypertension, on Norvasc 5 mg daily. 3. Schizophrenia. 4. Right facial basal cell carcinoma, status post surgery 5. Dysphagia, resolved 6. Non compliant DW RN Subjective Subjective Comfortable in NAD. No events. Placement pending Objective Last 24 Hour Vital Signs Date Time Temp Pulse Resp B/P (MAP) Pulse Ox O2 Delivery O2 Flow Rate FiO2 05/11/18 12:00 98.1 98 20 135/92 (106) 96 05/11/18 09:00 Room Air 05/11/18 08:24 104 145/85 05/11/18 08:00 97.7 104 20 145/85 (105) 95 05/10/18 16:00 98.4 104 20 121/75 (90) 93 Intake and Output 05/10/18 05/11/18 19:00 07:00 Intake Total 600 ml Balance 600 ml Intake Oral 600 ml # Voids 6 3 # Bowel Movements 1 Objective HEAD AND NECK: No JVD. The right side of his face scar is covered now LUNGS: Clear CARDIOVASCULAR: RRR. No GRM ABDOMEN: Soft EXTREMITIES: No edema. Teto Branch MD May 11, 2018 15:12
--- NOTE | 2018-05-11 15:52 | Nephrology Progress Note ---
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 DC planning Subjective ROS Limited/Unobtainable: No Constitutional: Reports: malaise Objective Objective Last 24 Hour Vital Signs Date Time Temp Pulse Resp B/P (MAP) Pulse Ox O2 Delivery O2 Flow Rate FiO2 05/11/18 12:00 98.1 98 20 135/92 (106) 96 05/11/18 09:00 Room Air 05/11/18 08:24 104 145/85 05/11/18 08:00 97.7 104 20 145/85 (105) 95 05/10/18 16:00 98.4 104 20 121/75 (90) 93 Intake and Output 05/10/18 05/11/18 19:00 07:00 Intake Total 600 ml Balance 600 ml Intake Oral 600 ml # Voids 6 3 # Bowel Movements 1 Height (Feet): 5 Height (Inches): 10.00 Weight (Pounds): 160 General Appearance: no apparent distress Objective no change Al Roper MD May 11, 2018 15:52
[2018-05-11 16:00] VITALS: BP 137/75
--- NOTE | 2018-05-11 16:45 | NUR ---
HAND-OFF: Report given to ANISH Haskins.
--- NOTE | 2018-05-11 19:18 | NUR ---
HAND-OFF: Report given to ANISH Martin.
--- NOTE | 2018-05-11 19:30 | NUR ---
NURSE NOTES: Received patient in no apparent distress. Awake with confusion. Dressing on right eye, dry and intact. No IV. Bed in lowest position. Call light within reach. Will continue to monitor.
[2018-05-11 20:00] VITALS: BP 117/71
[2018-05-11] MEDS: Tamsulosin 0.4mg cap ORAL SCH (21:03)
[2018-05-12] VITALS: BP 112/66
[2018-05-12 04:00] VITALS: BP 108/65
--- NOTE | 2018-05-12 07:30 | NUR ---
HAND-OFF: Report given to Anuja OCONNELL.
--- NOTE | 2018-05-12 07:59 | NUR ---
NURSE NOTES: Received report from ANISH Nicholas. Pt in bed, awake, talkative, no apparent distress noted, no complaints of pain, bed in lowest position, call light within reach.
[2018-05-12 08:00] VITALS: BP 116/69
[2018-05-12] MEDS: Heparin 5000 units/ml inj SUBQ SCH ×2 (09:00→21:00)
[2018-05-12] MEDS: Phospha 250 Neutral tab ORAL SCH ×3 (09:07→17:45)
[2018-05-12] MEDS: OLANZapine 10mg tab ORAL SCH ×3 (09:07→17:45)
[2018-05-12] MEDS: Docusate 100mg cap ORAL SCH ×2 (09:07→17:45)
--- NOTE | 2018-05-12 10:57 | NUR ---
RD ASSESSMENT & RECOMMENDATIONS SEE CARE ACTIVITY FOR COMPLETE ASSESSMENT DAILY ESTIMATED NEEDS: Needs based on Wound/ 71kg 25-30 kcals/kg 4011-1251 total kcals 1.25-1.7 g protein/kg 88-120 g total protein 25-30 mL/kg 4652-6713 total fluid mLs NUTRITION DIAGNOSIS: * Increased kcal/pro intake needs R/T wound healing as evidenced by pt w/ open wound @ rt eye due to h/o resection of carcinoma. * Inadequate oral intake R/T psych issues? etiology unknown as evidenced by pt admitted w/ c/o refusing to eat w/ FTT dx, now w/ improved oral intake. CURRENT DIET:REGULAR PO DIET RECOMMENDATIONS: Liberalized REGULAR diet/ texture per ULTRASOUND TESTER + ENSURE TID ADDITIONAL RECOMMENDATIONS: * Calibrated bedscale for accurate updated weight * ENSURE ENLIVE TID w/ meals * Wound healing: continue MVI x 1, Vit C 500mg QD : Add Crispin 1pkt BID * ULTRASOUND TESTER eval for appropriate texture * *
--- NOTE | 2018-05-12 11:20 | General Progress Note ---
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 SNOMED: 86891848 (2) Basal cell carcinoma ICD Codes: C44.91 - Basal cell carcinoma of skin, unspecified SNOMED: 099678168 (3) Generalized weakness ICD Codes: R53.1 - Weakness SNOMED: 42696570 (4) Cellulitis and abscess of face ICD Codes: L03.211 - Cellulitis of face; L02.01 - Cutaneous abscess of face SNOMED: 578573911 (5) Severe malnutrition ICD Codes: E43 - Unspecified severe protein-calorie malnutrition SNOMED: 53558323 (6) Failure to thrive in adult ICD Codes: R62.7 - Adult failure to thrive SNOMED: 523853776 (7) HTN (hypertension) ICD Codes: I10 - Essential (primary) hypertension SNOMED: 05414408 (8) UTI (urinary tract infection) ICD Codes: N39.0 - Urinary tract infection, site not specified SNOMED: 78526342 Status: unchanged Assessment/Plan pt diet abx prn cbc bmp am dc if clear Subjective Constitutional: Reports: weakness Allergies: Coded Allergies: BENZTROPINE (Unverified Allergy, Unknown, 02/22/14) HALOPERIDOL (Unverified Allergy, Unknown, 02/22/14) PENICILLINS (Unverified Allergy, Unknown, 04/14/18) tolerated Ceftriaxone 06/2017 All Systems: reviewed and negative except above Subjective sleepy calm Objective Last 24 Hour Vital Signs Date Time Temp Pulse Resp B/P (MAP) Pulse Ox O2 Delivery O2 Flow Rate FiO2 05/12/18 09:07 66 116/69 05/12/18 09:00 Room Air 05/12/18 08:00 97.7 66 20 116/69 (85) 96 05/12/18 04:00 98.0 63 16 108/65 (79) 100 05/12/18 00:00 98.6 66 18 112/66 (81) 96 05/11/18 20:19 Room Air 05/11/18 20:00 98.4 69 18 117/71 (86) 96 05/11/18 16:00 97.2 76 20 137/75 (95) 97 05/11/18 12:00 98.1 98 20 135/92 (106) 96 Intake and Output 05/11/18 05/12/18 18:59 06:59 Intake Total 1700 ml 240 ml Output Total 401 ml Balance 1299 ml 240 ml Intake Oral 1700 ml 240 ml Output Urine Total 400 ml Stool Total 1 ml # Voids 2 # Bowel Movements 2 Height (Feet): 5 Height (Inches): 10.00 Weight (Pounds): 163 General Appearance: lethargic EENT: normal ENT inspection Neck: normal alignment Cardiovascular: normal peripheral pulses, normal rate, regular rhythm Respiratory/Chest: chest wall non-tender, lungs clear, normal breath sounds Abdomen: normal bowel sounds, non tender, soft Extremities: normal inspection Edema: no edema noted Arm (L), no edema noted Arm (R), no edema noted Leg (L), no edema noted Leg (R), no edema noted Pedal (L), no edema noted Pedal (R), no edema noted Generalized Neurologic: motor weakness Skin: normal pigmentation, warm/dry Julio Higgins DO May 12, 2018 11:20
--- NOTE | 2018-05-12 11:27 | Nephrology Progress Note ---
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 DC planning Subjective ROS Limited/Unobtainable: No Objective Objective Last 24 Hour Vital Signs Date Time Temp Pulse Resp B/P (MAP) Pulse Ox O2 Delivery O2 Flow Rate FiO2 05/12/18 09:07 66 116/69 05/12/18 09:00 Room Air 05/12/18 08:00 97.7 66 20 116/69 (85) 96 05/12/18 04:00 98.0 63 16 108/65 (79) 100 05/12/18 00:00 98.6 66 18 112/66 (81) 96 05/11/18 20:19 Room Air 05/11/18 20:00 98.4 69 18 117/71 (86) 96 05/11/18 16:00 97.2 76 20 137/75 (95) 97 05/11/18 12:00 98.1 98 20 135/92 (106) 96 Intake and Output 05/11/18 05/12/18 18:59 06:59 Intake Total 1700 ml 240 ml Output Total 401 ml Balance 1299 ml 240 ml Intake Oral 1700 ml 240 ml Output Urine Total 400 ml Stool Total 1 ml # Voids 2 # Bowel Movements 2 Height (Feet): 5 Height (Inches): 10.00 Weight (Pounds): 163 General Appearance: no apparent distress Objective no change Al Roper MD May 12, 2018 11:27
--- NOTE | 2018-05-12 11:32 | GI Progress Note ---
Assessment/Plan Problems: (1) Failure to thrive in adult ICD Codes: R62.7 - Adult failure to thrive SNOMED: 195376656 (2) Severe malnutrition ICD Codes: E43 - Unspecified severe protein-calorie malnutrition SNOMED: 56208167 (3) Schizophreniform psychosis ICD Codes: F20.9 - Schizophreniform psychosis SNOMED: 60599754 (4) Cellulitis and abscess of face ICD Codes: L03.211 - Cellulitis of face; L02.01 - Cutaneous abscess of face SNOMED: 352403101 (5) Constipation ICD Codes: K59.00 - Constipation, unspecified SNOMED: 69552753 Status: stable Status Narrative Discussed with Dr. Ferguson Assessment/Plan psych f/u defer PEG, the patient has shown improvement in caloric intake and shows no signs of dysphagia or risk for aspiration. Patient on regular diet push p.o. One-to-one feeder IV/p.o. hydration Antibiotics PPI Bowel regimen, refused Senokot Follow-up labs The patient was seen and examined at bedside and all new and available data was reviewed in the patients chart. I agree with the above findings, impression and plan. (Patient seen earlier today. Signature stamp does not reflect patient encounter time.). - Juliocesar Ferguson MD Subjective Subjective Limited Objective Last 24 Hour Vital Signs Date Time Temp Pulse Resp B/P (MAP) Pulse Ox O2 Delivery O2 Flow Rate FiO2 05/12/18 09:07 66 116/69 05/12/18 09:00 Room Air 05/12/18 08:00 97.7 66 20 116/69 (85) 96 05/12/18 04:00 98.0 63 16 108/65 (79) 100 05/12/18 00:00 98.6 66 18 112/66 (81) 96 05/11/18 20:19 Room Air 05/11/18 20:00 98.4 69 18 117/71 (86) 96 05/11/18 16:00 97.2 76 20 137/75 (95) 97 05/11/18 12:00 98.1 98 20 135/92 (106) 96 Intake and Output 05/11/18 05/12/18 18:59 06:59 Intake Total 1700 ml 240 ml Output Total 401 ml Balance 1299 ml 240 ml Intake Oral 1700 ml 240 ml Output Urine Total 400 ml Stool Total 1 ml # Voids 2 # Bowel Movements 2 Height (Feet): 5 Height (Inches): 10.00 Weight (Pounds): 163 General Appearance: alert Cardiovascular: normal rate Abdominal Exam: soft Objective Legally blind Roxanna Saavedra NP May 12, 2018 11:32
--- NOTE | 2018-05-12 11:44 | NUR ---
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 97.7 HR 66 RR 20 B/P 116/69 RA 98% IS: COLACE PO NORVASC PO SEROQUEL PO FLOMAX PO PLACEMENT PENDING 8MED/SURG STATUS
[2018-05-12 12:00] VITALS: BP 119/64
--- NOTE | 2018-05-12 12:46 | Pulmonology Progress Note ---
Assessment/Plan Problems: (1) Failure to thrive in adult (2) UTI (urinary tract infection) (3) HTN (hypertension) (4) Severe malnutrition (5) Generalized weakness (6) Constipation Assessment/Plan doing fairly no new complains all meds and notes reviewed d/w nurse. dc planning Subjective ROS Limited/Unobtainable: Yes Constitutional: Reports: no symptoms Allergies: Coded Allergies: BENZTROPINE (Unverified Allergy, Unknown, 02/22/14) HALOPERIDOL (Unverified Allergy, Unknown, 02/22/14) PENICILLINS (Unverified Allergy, Unknown, 04/14/18) tolerated Ceftriaxone 06/2017 Objective Last 24 Hour Vital Signs Date Time Temp Pulse Resp B/P (MAP) Pulse Ox O2 Delivery O2 Flow Rate FiO2 05/12/18 12:00 97.1 57 20 119/64 (82) 97 05/12/18 09:07 66 116/69 05/12/18 09:00 Room Air 05/12/18 08:00 97.7 66 20 116/69 (85) 96 05/12/18 04:00 98.0 63 16 108/65 (79) 100 05/12/18 00:00 98.6 66 18 112/66 (81) 96 05/11/18 20:19 Room Air 05/11/18 20:00 98.4 69 18 117/71 (86) 96 05/11/18 16:00 97.2 76 20 137/75 (95) 97 Intake and Output 05/11/18 05/12/18 18:59 06:59 Intake Total 1700 ml 240 ml Output Total 401 ml Balance 1299 ml 240 ml Intake Oral 1700 ml 240 ml Output Urine Total 400 ml Stool Total 1 ml # Voids 2 # Bowel Movements 2 Objective General Appearance: WD/WN HEENT: normocephalic, right eye patch Respiratory/Chest: chest wall non-tender, lungs clear Breasts: no masses Cardiovascular: normal peripheral pulses, normal rate Abdomen: normal bowel sounds, soft, non tender Extremities: no cyanosis Skin: no rash 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 Lymphatic: no neck adenopathy Current Medications Medications (Trade) Dose Ordered Sig/Jordi Route PRN Reason Start Time Stop Time Status Last Admin Dose Admin Acetaminophen/ Hydrocodone Bitart ([place] 5/325) 1 tab Q4H PRN ORAL Moderate Pain (Pain Scale 4-6) 05/10/18 12:50 05/17/18 12:49 Amlodipine Besylate (Norvasc) 5 mg DAILY ORAL 05/06/18 09:00 05/14/18 08:59 05/12/18 09:07 Docusate Sodium (Colace) 100 mg TWICE A DAY ORAL 05/07/18 18:00 06/06/18 17:59 05/12/18 09:07 Famotidine (Pepcid) 20 mg BID ORAL 05/05/18 18:00 05/18/18 17:59 05/12/18 09:07 Heparin Sodium (Porcine) (Heparin 5000 units/ml) 5,000 units EVERY 12 HOURS SUBQ 05/05/18 21:00 05/14/18 08:59 05/07/18 08:29 Olanzapine (ZyPREXA) 10 mg TID ORAL 05/05/18 18:00 05/25/18 17:59 05/12/18 09:07 Phosphorus (Phospha 250 Neutral) 500 mg THREE TIMES A DAY ORAL 05/05/18 18:00 05/20/18 17:59 05/12/18 09:07 Polyethylene Glycol (Miralax) 17 gm DAILYPRN PRN ORAL Constipation 05/07/18 16:00 06/06/18 15:59 05/07/18 17:35 Quetiapine Fumarate (SEROquel) 150 mg EVERY 8 HOURS ORAL 05/05/18 22:00 05/21/18 05:59 05/11/18 21:03 Tamsulosin HCl (Flomax) 0.4 mg BEDTIME ORAL 05/05/18 21:00 05/16/18 20:59 05/11/18 21:03 Waleska Thornton MD May 12, 2018 12:46
--- NOTE | 2018-05-12 13:12 | General Progress Note ---
Assessment/Plan Assessment/Plan # Leukocytosis. Secondary to underlying infection, sepsis of R eye/hx malignancy that side --> Monitor and trend wbc for improvement -->16.6-->23.0-->31.5-->9.2-->11.2-->22.9-->10-->15 --> Peripheral smear has been reviewed, no blasts noted --> Medications have been reviewed --> Imaging has been reviewed --> cont on abx, empiric treatment --> per ID management # Carcinoma resection of from right side of face/eye --> as per outpatient onc # Anemia of chronic disease --> anemia panel has been reviewed --> trend hgb 12.8-->10.2-->10 # FTT --> refusing care --> defer peg tube given improvement in po intake --> calorie counts and weights weekly --> mirtazpine as needed # Sepsis. improved # H/O superinfected necrotic mass and possible micro abscess s/p Tx 06/2017 # Wound. # COPD. # Dysphasia # Schizophrenia # HTN. # Legally blind Time and date note entered in EMR does not reflect time and date of encounter. GREATLY APPRECIATE CONSULTATION. Subjective Constitutional: Denies: no symptoms, chills, diaphoresis, fever, malaise, weakness, other HEENT: Denies: no symptoms, eye pain, blurred vision, tearing, double vision, ear pain, ear discharge, nose pain, nose congestion, throat pain, throat swelling, mouth pain, mouth swelling, other Cardiovascular: Denies: no symptoms, chest pain, edema, irregular heart rate, lightheadedness, palpitations, syncope, other Respiratory: Denies: no symptoms, cough, orthopnea, shortness of breath, SOB with excertion, SOB at rest, sputum, stridor, wheezing, other Gastrointestinal/Abdominal: Denies: no symptoms, abdomen distended, abdominal pain, black stools, tarry stools, blood in stool, constipated, diarrhea, difficulty swallowing, nausea, poor appetite, poor fluid intake, rectal bleeding , vomiting, other Genitourinary: Denies: no symptoms, burning, discharge, frequency, flank pain, hematuria, incontinence, pain, urgency, other Neurologic/Psychiatric: Denies: no symptoms, anxiety, depressed, emotional problems, headache, numbness, paresthesia, pre-existing deficit, seizure, tingling, tremors, weakness, other Endocrine: Denies: no symptoms, excessive sweating, flushing, intolerance to cold, intolerance to heat, increased hunger, increased thirst, increased urine, unexplained weight gain, unexplained weight loss, other Hematologic/Lymphatic: Denies: no symptoms, anemia, easy bleeding, easy bruising, other Allergies: Coded Allergies: BENZTROPINE (Unverified Allergy, Unknown, 02/22/14) HALOPERIDOL (Unverified Allergy, Unknown, 02/22/14) PENICILLINS (Unverified Allergy, Unknown, 04/14/18) tolerated Ceftriaxone 06/2017 Subjective 04/15: Pt awake and agitated. No acute events. Pt refusing meds. 04/16: wbc severely elevated, seen by Id, on broad spectrum antifungals, foul language, very aggressive 04/18: no events, mumbling, minimally conversive, no fevers, down on ivf 04/19: pt is awake and resting in bed. refusing care, aggressive, no events 04/20: Pt is awake and alert, refusing care, minimally conversive, on abx, wbc have improved. 04/21: Pt is awake and resting in bed, aggressive, mumbling, 04/22: Pt is resting in bed. PEG has been defered, the patient has shown improvement in caloric intake and shows no signs of dysphagia or risk for aspiration. 04/23: Pt is seen in the room, resting in bed, refusing care, on abx, pending labs /: No events, has been agitated overnight, refusing care 04/25: Pt is awake and resting in bed, refusing labs, agitated, screaming, refusing care 04/26: no major events, no fevers or chills, no chest pain or sob 04/27: pt is seen by bedside, awake and comfortable, wbc is at 22.9 today. 04/28: peg has been deferred, gi recs reviewed, no events, slightly agitated 04/29: no events, refusing care, no change other, remains aggressive, says "don' t touch me" 04/30: continues to cuss out, rn by bedside with conservator and able to chnage wound on eye R 05/01: Pt is awake and calm, alert oriented x1, remains afebrile off abx and leukocytosis resolved 05/02: Pt is seen by bedside, awake and calm, no events. pending labs 05/03: Pt is alert and oriented x1, remains afebrile off abx and leukocytosis resolved 05/04: accepted at [place], potent[facility] nd as early as today 05/05: [facility]. They were unable to accept the pt due to pt's agitation worsenin 05/09: Pt is awake, seen by bedside, pending placement, no events 05/10: no fevers noted, no chills, getting abx, but refuisng blood draws 05/11: seen by bedside, awake and comfortable, no overnight events, refusing blood draws 05/12: Pt is awake, confused, refusing labs, no events reported Objective Last 24 Hour Vital Signs Date Time Temp Pulse Resp B/P (MAP) Pulse Ox O2 Delivery O2 Flow Rate FiO2 05/12/18 12:00 97.1 57 20 119/64 (82) 97 05/12/18 09:07 66 116/69 05/12/18 09:00 Room Air 05/12/18 08:00 97.7 66 20 116/69 (85) 96 05/12/18 04:00 98.0 63 16 108/65 (79) 100 05/12/18 00:00 98.6 66 18 112/66 (81) 96 05/11/18 20:19 Room Air 05/11/18 20:00 98.4 69 18 117/71 (86) 96 05/11/18 16:00 97.2 76 20 137/75 (95) 97 Intake and Output 05/11/18 05/12/18 18:59 06:59 Intake Total 1700 ml 240 ml Output Total 401 ml Balance 1299 ml 240 ml Intake Oral 1700 ml 240 ml Output Urine Total 400 ml Stool Total 1 ml # Voids 2 # Bowel Movements 2 Height (Feet): 5 Height (Inches): 10.00 Weight (Pounds): 163 Objective Vitals: Have been reviewed General Appearance: alert, agitated Head: normocephalic, atraumatic Eyes: right eye abnormal pupil - right eye has patch which covers the right temporal area of face as well from cancer ressection; left eye other - visible cataract, glassy/hazy appearance, unchanged ENT: hearing grossly normal, other Neck: full range of motion Respiratory: chest non-tender, lungs clear Cardiovascular no edema, tachycardia Gastrointestinal: normal bs, non tender, soft MSK: back normal, non-tender, bilateral hand contractures Skin: normal color, no rash, warm/dry Jr Daly MD May 12, 2018 13:12
--- NOTE | 2018-05-12 14:12 | Cardiac Electrophysiology PN ---
Assessment/Plan Assessment/Plan 1. Sinus tachycardia. Due to anxiety and infection. Resolved 2. Hypertension, on Norvasc 5 mg daily. 3. Schizophrenia. 4. Right facial basal cell carcinoma, status post surgery 5. Dysphagia, resolved 6. Non compliant DW RN Subjective Subjective Comfortable in NAD. No events. Refusing meds. Objective Last 24 Hour Vital Signs Date Time Temp Pulse Resp B/P (MAP) Pulse Ox O2 Delivery O2 Flow Rate FiO2 05/12/18 12:00 97.1 57 20 119/64 (82) 97 05/12/18 09:07 66 116/69 05/12/18 09:00 Room Air 05/12/18 08:00 97.7 66 20 116/69 (85) 96 05/12/18 04:00 98.0 63 16 108/65 (79) 100 05/12/18 00:00 98.6 66 18 112/66 (81) 96 05/11/18 20:19 Room Air 05/11/18 20:00 98.4 69 18 117/71 (86) 96 05/11/18 16:00 97.2 76 20 137/75 (95) 97 Intake and Output 05/11/18 05/12/18 19:00 07:00 Intake Total 1700 ml 240 ml Output Total 401 ml Balance 1299 ml 240 ml Intake Oral 1700 ml 240 ml Output Urine Total 400 ml Stool Total 1 ml # Voids 2 # Bowel Movements 2 Objective HEAD AND NECK: No JVD. The right side of his face scar is covered now LUNGS: Clear CARDIOVASCULAR: RRR. No GRM ABDOMEN: Soft EXTREMITIES: No edema. Teto Branch MD May 12, 2018 14:12
[2018-05-12 16:00] VITALS: BP 126/70
--- NOTE | 2018-05-12 16:41 | Infectious Diseases Prog Note ---
Assessment/Plan Assessment/Plan Assessment/Plan Sepsis- ?source- r/o UTI, PNA- now resolved Afebrile Leukocytosis Increased 04/27/18 , recurrent- r/o Cdiff, RACHNA -CXR 05/09 :Hypoventilatory exam. No definite acute process -CXR 04/28: No acute findings Unclear source no sign of active infection resection of carcinoma from right side of face/eye Wnd Cx : GPC -hx of superinfected necrotic mass and possible micro abscess s/p Tx 06/2017 -wound cx MRSA, diphterouids, ESBL Proteus 04/14/19 Wound Cx Providencia and MRSA FTT COPD dysphasia schizophrenia HTN MDD legally blind hx of VRE/MRSA colonization Plan: - Monitor off abx unless febrile, increasing leukocytosis and/or HD instability (patient refusing blood draws) - 04/24/18 SP PO Bactrim DS BID - 04/20/18 SP empiric Azactam , Flagyl and IV Vanco d# 6/10 - 04/15/18 SP Ceftriaxone d# 2 -f/u u/a w/ reflex, Bcx x2 (rfused Bcx) -Cdiff if diarrhea -Monitor CBC/CMP, temperatures -CBC, CMP, amylase, lipase am (refused labs) Subjective Allergies: Coded Allergies: BENZTROPINE (Unverified Allergy, Unknown, 02/22/14) HALOPERIDOL (Unverified Allergy, Unknown, 02/22/14) PENICILLINS (Unverified Allergy, Unknown, 04/14/18) tolerated Ceftriaxone 06/2017 Subjective afebrile pt refusing blood draws Objective Vital Signs Last 24 Hour Vital Signs Date Time Temp Pulse Resp B/P (MAP) Pulse Ox O2 Delivery O2 Flow Rate FiO2 05/12/18 16:00 98.1 65 20 126/70 (88) 99 05/12/18 12:00 97.1 57 20 119/64 (82) 97 05/12/18 09:07 66 116/69 05/12/18 09:00 Room Air 05/12/18 08:00 97.7 66 20 116/69 (85) 96 05/12/18 04:00 98.0 63 16 108/65 (79) 100 05/12/18 00:00 98.6 66 18 112/66 (81) 96 05/11/18 20:19 Room Air 05/11/18 20:00 98.4 69 18 117/71 (86) 96 Height (Feet): 5 Height (Inches): 10.00 Weight (Pounds): 163 Objective General: NAD, irritable HEENT: NCAT, right eye with large ulcer no surrounding erythema or purulence but scar and some necrotic tissue present, left eye - visible cataract, glassy/ hazy appearance Respiratory: CATB, No W/C Cardiovascular no edema, tachycardia Gastrointestinal: normal bowel sounds, non tender, soft Current Medications Medications (Trade) Dose Ordered Sig/Jordi Route PRN Reason Start Time Stop Time Status Last Admin Dose Admin Acetaminophen/ Hydrocodone Bitart ([place] 5/325) 1 tab Q4H PRN ORAL Moderate Pain (Pain Scale 4-6) 05/10/18 12:50 05/17/18 12:49 Amlodipine Besylate (Norvasc) 5 mg DAILY ORAL 05/06/18 09:00 05/14/18 08:59 05/12/18 09:07 Docusate Sodium (Colace) 100 mg TWICE A DAY ORAL 05/07/18 18:00 06/06/18 17:59 05/12/18 09:07 Famotidine (Pepcid) 20 mg BID ORAL 05/05/18 18:00 05/18/18 17:59 05/12/18 09:07 Heparin Sodium (Porcine) (Heparin 5000 units/ml) 5,000 units EVERY 12 HOURS SUBQ 05/05/18 21:00 05/14/18 08:59 05/07/18 08:29 Olanzapine (ZyPREXA) 10 mg TID ORAL 05/05/18 18:00 05/25/18 17:59 05/12/18 13:04 Phosphorus (Phospha 250 Neutral) 500 mg THREE TIMES A DAY ORAL 05/05/18 18:00 05/20/18 17:59 05/12/18 13:04 Polyethylene Glycol (Miralax) 17 gm DAILYPRN PRN ORAL Constipation 05/07/18 16:00 06/06/18 15:59 05/07/18 17:35 Quetiapine Fumarate (SEROquel) 150 mg EVERY 8 HOURS ORAL 05/05/18 22:00 05/21/18 05:59 05/12/18 13:04 Tamsulosin HCl (Flomax) 0.4 mg BEDTIME ORAL 05/05/18 21:00 05/16/18 20:59 05/11/18 21:03 Carmella Spring M.D. May 12, 2018 16:41
--- NOTE | 2018-05-12 19:12 | NUR ---
HAND-OFF: Report given to ANISH Nicholas.
[2018-05-12 19:50] VITALS: BP 108/64
[2018-05-12] MEDS: Tamsulosin 0.4mg cap ORAL SCH (21:00)
--- NOTE | 2018-05-13 06:30 | NUR ---
NURSE NOTES: Patient refused blood lab draw. Explained importance of monitoring but still refused.
--- NOTE | 2018-05-13 07:19 | NUR ---
NURSE NOTES: Received report from ANISH Nicholas. Pt in bed, awake, calm, talkative, no apparent distress noted, no complaints of pain, bed in lowest position, call light within reach.
--- NOTE | 2018-05-13 07:51 | General Progress Note ---
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 Patient on regular diet push p.o. One-to-one feeder IV/p.o. hydration Antibiotics PPI Bowel regimen, refused Senokot Follow-up labs Subjective ROS Limited/Unobtainable: Yes Allergies: Coded Allergies: BENZTROPINE (Unverified Allergy, Unknown, 02/22/14) HALOPERIDOL (Unverified Allergy, Unknown, 02/22/14) PENICILLINS (Unverified Allergy, Unknown, 04/14/18) tolerated Ceftriaxone 06/2017 Subjective no event Objective Last 24 Hour Vital Signs Date Time Temp Pulse Resp B/P (MAP) Pulse Ox O2 Delivery O2 Flow Rate FiO2 05/13/18 04:00 18 05/13/18 00:00 19 05/12/18 20:45 Room Air 05/12/18 19:50 97.5 68 20 108/64 (79) 95 05/12/18 16:00 98.1 65 20 126/70 (88) 99 05/12/18 12:00 97.1 57 20 119/64 (82) 97 05/12/18 09:07 66 116/69 05/12/18 09:00 Room Air 05/12/18 08:00 97.7 66 20 116/69 (85) 96 Intake and Output 05/12/18 05/13/18 19:00 07:00 Intake Total 1800 ml Balance 1800 ml Intake Oral 1800 ml # Voids 4 3 # Bowel Movements 2 Height (Feet): 5 Height (Inches): 10.00 Weight (Pounds): 163 General Appearance: no apparent distress EENT: normal ENT inspection Neck: supple Cardiovascular: normal rate Respiratory/Chest: decreased breath sounds Abdomen: normal bowel sounds, non tender, soft Extremities: non-tender Juliocesar Ferguson MD May 13, 2018 07:51
[2018-05-13 08:00] VITALS: BP 118/78
[2018-05-13] MEDS: Docusate 100mg cap ORAL SCH ×2 (08:34→17:01)
[2018-05-13] MEDS: OLANZapine 10mg tab ORAL SCH ×3 (08:34→17:01)
[2018-05-13] MEDS: Phospha 250 Neutral tab ORAL SCH ×3 (08:34→17:01)
[2018-05-13] MEDS: Heparin 5000 units/ml inj SUBQ SCH ×2 (08:35→21:00)
--- NOTE | 2018-05-13 08:58 | General Progress Note ---
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 SNOMED: 08688174 (2) Basal cell carcinoma ICD Codes: C44.91 - Basal cell carcinoma of skin, unspecified SNOMED: 799343657 (3) Generalized weakness ICD Codes: R53.1 - Weakness SNOMED: 70210121 (4) Cellulitis and abscess of face ICD Codes: L03.211 - Cellulitis of face; L02.01 - Cutaneous abscess of face SNOMED: 492111104 (5) Severe malnutrition ICD Codes: E43 - Unspecified severe protein-calorie malnutrition SNOMED: 22528467 (6) Failure to thrive in adult ICD Codes: R62.7 - Adult failure to thrive SNOMED: 933430381 (7) HTN (hypertension) ICD Codes: I10 - Essential (primary) hypertension SNOMED: 72882668 (8) UTI (urinary tract infection) ICD Codes: N39.0 - Urinary tract infection, site not specified SNOMED: 96993822 Status: stable, progressing Assessment/Plan pt diet abx prn cbc bmp am dc if clear Subjective Constitutional: Reports: weakness Allergies: Coded Allergies: BENZTROPINE (Unverified Allergy, Unknown, 02/22/14) HALOPERIDOL (Unverified Allergy, Unknown, 02/22/14) PENICILLINS (Unverified Allergy, Unknown, 04/14/18) tolerated Ceftriaxone 06/2017 All Systems: reviewed and negative except above Subjective sleepy calm Objective Last 24 Hour Vital Signs Date Time Temp Pulse Resp B/P (MAP) Pulse Ox O2 Delivery O2 Flow Rate FiO2 05/13/18 08:35 50 118/78 05/13/18 08:00 97.8 50 18 118/78 (91) 98 05/13/18 04:00 18 05/13/18 00:00 19 05/12/18 20:45 Room Air 05/12/18 19:50 97.5 68 20 108/64 (79) 95 05/12/18 16:00 98.1 65 20 126/70 (88) 99 05/12/18 12:00 97.1 57 20 119/64 (82) 97 05/12/18 09:07 66 116/69 05/12/18 09:00 Room Air Intake and Output 05/12/18 05/13/18 18:59 06:59 Intake Total 1800 ml Balance 1800 ml Intake Oral 1800 ml # Voids 4 3 # Bowel Movements 2 Height (Feet): 5 Height (Inches): 10.00 Weight (Pounds): 163 General Appearance: lethargic EENT: normal ENT inspection Neck: normal alignment Cardiovascular: normal peripheral pulses, normal rate, regular rhythm Respiratory/Chest: chest wall non-tender, lungs clear, normal breath sounds Abdomen: normal bowel sounds, non tender, soft Extremities: normal inspection Edema: no edema noted Arm (L), no edema noted Arm (R), no edema noted Leg (L), no edema noted Leg (R), no edema noted Pedal (L), no edema noted Pedal (R), no edema noted Generalized Neurologic: motor weakness Skin: normal pigmentation, warm/dry Julio Higgins DO May 13, 2018 08:58
--- NOTE | 2018-05-13 09:05 | Infectious Diseases Prog Note ---
Assessment/Plan Assessment/Plan Sepsis- ?source- r/o UTI, PNA- now resolved Afebrile Leukocytosis Increased 04/27/18 , recurrent- r/o Cdiff, RACHNA -CXR 05/09 :Hypoventilatory exam. No definite acute process -CXR 04/28: No acute findings Unclear source no sign of active infection resection of carcinoma from right side of face/eye Wnd Cx : GPC -hx of superinfected necrotic mass and possible micro abscess s/p Tx 06/2017 -wound cx MRSA, diphterouids, ESBL Proteus 04/14/19 Wound Cx Providencia and MRSA FTT COPD dysphasia schizophrenia HTN MDD legally blind hx of VRE/MRSA colonization Plan: - Monitor off abx unless febrile, increasing leukocytosis and/or HD instability (patient refusing blood draws) - 04/24/18 SP PO Bactrim DS BID - 04/20/18 SP empiric Azactam , Flagyl and IV Vanco d# 6/10 - 04/15/18 SP Ceftriaxone d# 2 -f/u u/a w/ reflex, Bcx x2 (rfused Bcx) -Cdiff if diarrhea -Monitor CBC/CMP, temperatures -CBC, CMP, amylase, lipase am (refused labs) Subjective Allergies: Coded Allergies: BENZTROPINE (Unverified Allergy, Unknown, 02/22/14) HALOPERIDOL (Unverified Allergy, Unknown, 02/22/14) PENICILLINS (Unverified Allergy, Unknown, 04/14/18) tolerated Ceftriaxone 06/2017 Subjective Says he is OK Patient intermittently refusing labs and meds Afebrile Leukocytosis 16 when checked 05/10/18 Objective Vital Signs Last 24 Hour Vital Signs Date Time Temp Pulse Resp B/P (MAP) Pulse Ox O2 Delivery O2 Flow Rate FiO2 05/13/18 08:35 50 118/78 05/13/18 08:00 97.8 50 18 118/78 (91) 98 05/13/18 04:00 18 05/13/18 00:00 19 05/12/18 20:45 Room Air 05/12/18 19:50 97.5 68 20 108/64 (79) 95 05/12/18 16:00 98.1 65 20 126/70 (88) 99 05/12/18 12:00 97.1 57 20 119/64 (82) 97 05/12/18 09:07 66 116/69 Height (Feet): 5 Height (Inches): 10.00 Weight (Pounds): 163 Objective General: Irritable HEENT: NCAT, right eye with large ulcer no surrounding erythema or purulence but scar and some necrotic tissue present, left eye - visible cataract, glassy/ hazy appearance Respiratory: CATB, No W/C Cardiovascular no edema, tachycardia Gastrointestinal: normal bowel sounds, non tender, soft Current Medications Medications (Trade) Dose Ordered Sig/Jordi Route PRN Reason Start Time Stop Time Status Last Admin Dose Admin Acetaminophen/ Hydrocodone Bitart ([place] 5/325) 1 tab Q4H PRN ORAL Moderate Pain (Pain Scale 4-6) 05/10/18 12:50 05/17/18 12:49 Amlodipine Besylate (Norvasc) 5 mg DAILY ORAL 05/06/18 09:00 05/14/18 08:59 05/12/18 09:07 Docusate Sodium (Colace) 100 mg TWICE A DAY ORAL 05/07/18 18:00 06/06/18 17:59 05/13/18 08:34 Famotidine (Pepcid) 20 mg BID ORAL 05/05/18 18:00 05/18/18 17:59 05/13/18 08:34 Heparin Sodium (Porcine) (Heparin 5000 units/ml) 5,000 units EVERY 12 HOURS SUBQ 05/05/18 21:00 05/14/18 08:59 05/07/18 08:29 Olanzapine (ZyPREXA) 10 mg TID ORAL 05/05/18 18:00 05/25/18 17:59 05/13/18 08:34 Phosphorus (Phospha 250 Neutral) 500 mg THREE TIMES A DAY ORAL 05/05/18 18:00 05/20/18 17:59 05/13/18 08:34 Polyethylene Glycol (Miralax) 17 gm DAILYPRN PRN ORAL Constipation 05/07/18 16:00 06/06/18 15:59 05/07/18 17:35 Quetiapine Fumarate (SEROquel) 150 mg EVERY 8 HOURS ORAL 05/05/18 22:00 05/21/18 05:59 05/12/18 13:04 Tamsulosin HCl (Flomax) 0.4 mg BEDTIME ORAL 05/05/18 21:00 05/16/18 20:59 05/11/18 21:03 Jozef Greene MD May 13, 2018 09:05
--- NOTE | 2018-05-13 09:51 | Pulmonology Progress Note ---
Assessment/Plan Problems: (1) Failure to thrive in adult (2) UTI (urinary tract infection) (3) HTN (hypertension) (4) Severe malnutrition (5) Generalized weakness (6) Constipation Assessment/Plan doing fairly no new complains all meds and notes reviewed d/w nurse. dc planning Subjective ROS Limited/Unobtainable: No Constitutional: Reports: no symptoms HEENT: Repors: no symptoms Respiratory: Reports: no symptoms Allergies: Coded Allergies: BENZTROPINE (Unverified Allergy, Unknown, 02/22/14) HALOPERIDOL (Unverified Allergy, Unknown, 02/22/14) PENICILLINS (Unverified Allergy, Unknown, 04/14/18) tolerated Ceftriaxone 06/2017 Objective Last 24 Hour Vital Signs Date Time Temp Pulse Resp B/P (MAP) Pulse Ox O2 Delivery O2 Flow Rate FiO2 05/13/18 08:35 50 118/78 05/13/18 08:00 97.8 50 18 118/78 (91) 98 05/13/18 04:00 18 05/13/18 00:00 19 05/12/18 20:45 Room Air 05/12/18 19:50 97.5 68 20 108/64 (79) 95 05/12/18 16:00 98.1 65 20 126/70 (88) 99 05/12/18 12:00 97.1 57 20 119/64 (82) 97 Intake and Output 05/12/18 05/13/18 19:00 07:00 Intake Total 1800 ml Balance 1800 ml Intake Oral 1800 ml # Voids 4 3 # Bowel Movements 2 Objective General Appearance: WD/WN HEENT: normocephalic, right eye patch Respiratory/Chest: chest wall non-tender, lungs clear Breasts: no masses Cardiovascular: normal peripheral pulses, normal rate Abdomen: normal bowel sounds, soft, non tender Extremities: no cyanosis Skin: no rash 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 Lymphatic: no neck adenopathy Current Medications Medications (Trade) Dose Ordered Sig/Jordi Route PRN Reason Start Time Stop Time Status Last Admin Dose Admin Acetaminophen/ Hydrocodone Bitart ([place] 5/325) 1 tab Q4H PRN ORAL Moderate Pain (Pain Scale 4-6) 05/10/18 12:50 05/17/18 12:49 Amlodipine Besylate (Norvasc) 5 mg DAILY ORAL 05/06/18 09:00 05/14/18 08:59 05/12/18 09:07 Docusate Sodium (Colace) 100 mg TWICE A DAY ORAL 05/07/18 18:00 06/06/18 17:59 05/13/18 08:34 Famotidine (Pepcid) 20 mg BID ORAL 05/05/18 18:00 05/18/18 17:59 05/13/18 08:34 Heparin Sodium (Porcine) (Heparin 5000 units/ml) 5,000 units EVERY 12 HOURS SUBQ 05/05/18 21:00 05/14/18 08:59 05/07/18 08:29 Olanzapine (ZyPREXA) 10 mg TID ORAL 05/05/18 18:00 05/25/18 17:59 05/13/18 08:34 Phosphorus (Phospha 250 Neutral) 500 mg THREE TIMES A DAY ORAL 05/05/18 18:00 05/20/18 17:59 05/13/18 08:34 Polyethylene Glycol (Miralax) 17 gm DAILYPRN PRN ORAL Constipation 05/07/18 16:00 06/06/18 15:59 05/07/18 17:35 Quetiapine Fumarate (SEROquel) 150 mg EVERY 8 HOURS ORAL 05/05/18 22:00 05/21/18 05:59 05/12/18 13:04 Tamsulosin HCl (Flomax) 0.4 mg BEDTIME ORAL 05/05/18 21:00 05/16/18 20:59 05/11/18 21:03 Waleska Thornton MD May 13, 2018 09:51
--- NOTE | 2018-05-13 10:36 | NUR ---
NURSE NOTES: 0800 Vitals showed HR 50. 0830: Rechecked vitals manual palpation pulse rate 58. Held morning dose of amlodipine. 1030: Notified Dr. Aguirre of held medication. Dr. Branch said to give medication
--- NOTE | 2018-05-13 11:43 | NUR ---
NURSE NOTES: Asked Dr. Blackmon for Ativan order. Pt has episodes of agitation and anxiety.
[2018-05-13 11:46] VITALS: BP 116/75
--- NOTE | 2018-05-13 14:53 | Cardiac Electrophysiology PN ---
Assessment/Plan Assessment/Plan 1. Sinus tachycardia. Due to anxiety and infection. No Fib. 2. Hypertension, on Norvasc 5 mg daily. 3. Schizophrenia. 4. Right facial basal cell carcinoma, status post surgery 5. Dysphagia, resolved 6. Non compliant DW RN Subjective Subjective No events. Off and on refusing meds. Placement pending Objective Last 24 Hour Vital Signs Date Time Temp Pulse Resp B/P (MAP) Pulse Ox O2 Delivery O2 Flow Rate FiO2 05/13/18 11:46 98.0 52 18 116/75 (89) 98 05/13/18 11:16 50 118/78 05/13/18 09:00 Room Air 05/13/18 08:00 97.8 50 18 118/78 (91) 98 05/13/18 04:00 18 05/13/18 00:00 19 05/12/18 20:45 Room Air 05/12/18 19:50 97.5 68 20 108/64 (79) 95 05/12/18 16:00 98.1 65 20 126/70 (88) 99 Intake and Output 05/12/18 05/13/18 18:59 06:59 Intake Total 1800 ml Balance 1800 ml Intake Oral 1800 ml # Voids 4 3 # Bowel Movements 2 Objective HEAD AND NECK: No JVD. The right side of his face scarred Right eye blind LUNGS: Clear CARDIOVASCULAR: RRR. No GRM ABDOMEN: Soft EXTREMITIES: No edema. Teto Branch MD May 13, 2018 14:53
[2018-05-13 16:00] VITALS: BP 136/91
--- NOTE | 2018-05-13 17:43 | Nephrology Progress Note ---
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 DC planning Subjective ROS Limited/Unobtainable: No Interval Events/Complaints seen at 10 am Objective Objective Last 24 Hour Vital Signs Date Time Temp Pulse Resp B/P (MAP) Pulse Ox O2 Delivery O2 Flow Rate FiO2 05/13/18 16:00 97.6 55 20 136/91 (106) 98 05/13/18 11:46 98.0 52 18 116/75 (89) 98 05/13/18 11:16 50 118/78 05/13/18 09:00 Room Air 05/13/18 08:00 97.8 50 18 118/78 (91) 98 05/13/18 04:00 18 05/13/18 00:00 19 05/12/18 20:45 Room Air 05/12/18 19:50 97.5 68 20 108/64 (79) 95 Intake and Output 05/12/18 05/13/18 19:00 07:00 Intake Total 1800 ml Balance 1800 ml Intake Oral 1800 ml # Voids 4 3 # Bowel Movements 2 Height (Feet): 5 Height (Inches): 10.00 Weight (Pounds): 162 General Appearance: no apparent distress Objective no change Al Roper MD May 13, 2018 17:43
--- NOTE | 2018-05-13 19:30 | General Progress Note ---
Assessment/Plan Assessment/Plan # Leukocytosis. Secondary to underlying infection, sepsis of R eye/hx malignancy that side --> Monitor and trend wbc for improvement -->16.6-->23.0-->31.5-->9.2-->11.2-->22.9-->10-->15 --> Peripheral smear has been reviewed, no blasts noted --> Medications have been reviewed --> Imaging has been reviewed --> cont on abx, empiric treatment --> per ID management # Carcinoma resection of from right side of face/eye --> as per outpatient onc # Anemia of chronic disease --> anemia panel has been reviewed --> trend hgb 12.8-->10.2-->10 # FTT --> refusing care --> defer peg tube given improvement in po intake --> calorie counts and weights weekly --> mirtazpine as needed # Sepsis. improved # H/O superinfected necrotic mass and possible micro abscess s/p Tx 06/2017 # Wound. # COPD. # Dysphasia # Schizophrenia # HTN. # Legally blind Time and date note entered in EMR does not reflect time and date of encounter. GREATLY APPRECIATE CONSULTATION. Subjective Constitutional: Denies: no symptoms, chills, diaphoresis, fever, malaise, weakness, other HEENT: Denies: no symptoms, eye pain, blurred vision, tearing, double vision, ear pain, ear discharge, nose pain, nose congestion, throat pain, throat swelling, mouth pain, mouth swelling, other Cardiovascular: Denies: no symptoms, chest pain, edema, irregular heart rate, lightheadedness, palpitations, syncope, other Respiratory: Denies: no symptoms, cough, orthopnea, shortness of breath, SOB with excertion, SOB at rest, sputum, stridor, wheezing, other Gastrointestinal/Abdominal: Denies: no symptoms, abdomen distended, abdominal pain, black stools, tarry stools, blood in stool, constipated, diarrhea, difficulty swallowing, nausea, poor appetite, poor fluid intake, rectal bleeding , vomiting, other Genitourinary: Denies: no symptoms, burning, discharge, frequency, flank pain, hematuria, incontinence, pain, urgency, other Neurologic/Psychiatric: Denies: no symptoms, anxiety, depressed, emotional problems, headache, numbness, paresthesia, pre-existing deficit, seizure, tingling, tremors, weakness, other Endocrine: Denies: no symptoms, excessive sweating, flushing, intolerance to cold, intolerance to heat, increased hunger, increased thirst, increased urine, unexplained weight gain, unexplained weight loss, other Hematologic/Lymphatic: Denies: no symptoms, anemia, easy bleeding, easy bruising, other Allergies: Coded Allergies: BENZTROPINE (Unverified Allergy, Unknown, 02/22/14) HALOPERIDOL (Unverified Allergy, Unknown, 02/22/14) PENICILLINS (Unverified Allergy, Unknown, 04/14/18) tolerated Ceftriaxone 06/2017 Subjective 04/15: Pt awake and agitated. No acute events. Pt refusing meds. 04/16: wbc severely elevated, seen by Id, on broad spectrum antifungals, foul language, very aggressive 04/18: no events, mumbling, minimally conversive, no fevers, down on ivf 04/19: pt is awake and resting in bed. refusing care, aggressive, no events 04/20: Pt is awake and alert, refusing care, minimally conversive, on abx, wbc have improved. 04/21: Pt is awake and resting in bed, aggressive, mumbling, 04/22: Pt is resting in bed. PEG has been defered, the patient has shown improvement in caloric intake and shows no signs of dysphagia or risk for aspiration. 04/23: Pt is seen in the room, resting in bed, refusing care, on abx, pending labs /: No events, has been agitated overnight, refusing care 04/25: Pt is awake and resting in bed, refusing labs, agitated, screaming, refusing care 04/26: no major events, no fevers or chills, no chest pain or sob 04/27: pt is seen by bedside, awake and comfortable, wbc is at 22.9 today. 04/28: peg has been deferred, gi recs reviewed, no events, slightly agitated 04/29: no events, refusing care, no change other, remains aggressive, says "don' t touch me" 04/30: continues to cuss out, rn by bedside with conservator and able to chnage wound on eye R 05/01: Pt is awake and calm, alert oriented x1, remains afebrile off abx and leukocytosis resolved 05/02: Pt is seen by bedside, awake and calm, no events. pending labs 05/03: Pt is alert and oriented x1, remains afebrile off abx and leukocytosis resolved 05/04: accepted at [facility] as early as today 05/05: pt came back from [facility] facility. They were unable to accept the pt due to pt's agitation worsenin 05/09: Pt is awake, seen by bedside, pending placement, no events 05/10: no fevers noted, no chills, getting abx, but refuisng blood draws 05/11: seen by bedside, awake and comfortable, no overnight events, refusing blood draws 05/12: Pt is awake, confused, refusing labs, no events reported 05/13: seen by bedside, awake, comfortable, no events, refusing meds. placement pending Objective Last 24 Hour Vital Signs Date Time Temp Pulse Resp B/P (MAP) Pulse Ox O2 Delivery O2 Flow Rate FiO2 05/13/18 16:00 97.6 55 20 136/91 (106) 98 05/13/18 11:46 98.0 52 18 116/75 (89) 98 05/13/18 11:16 50 118/78 05/13/18 09:00 Room Air 05/13/18 08:00 97.8 50 18 118/78 (91) 98 05/13/18 04:00 18 05/13/18 00:00 19 05/12/18 20:45 Room Air 05/12/18 19:50 97.5 68 20 108/64 (79) 95 Intake and Output 05/12/18 05/13/18 19:00 07:00 Intake Total 1800 ml Balance 1800 ml Intake Oral 1800 ml # Voids 4 3 # Bowel Movements 2 Height (Feet): 5 Height (Inches): 10.00 Weight (Pounds): 162 Objective Vitals: Have been reviewed General Appearance: alert, agitated Head: normocephalic, atraumatic Eyes: right eye abnormal pupil - right eye has patch which covers the right temporal area of face as well from cancer ressection; left eye other - visible cataract, glassy/hazy appearance, unchanged ENT: hearing grossly normal, other Neck: full range of motion Respiratory: chest non-tender, lungs clear Cardiovascular no edema, tachycardia Gastrointestinal: normal bs, non tender, soft MSK: back normal, non-tender, bilateral hand contractures Skin: normal color, no rash, warm/dry Jr Daly MD May 13, 2018 19:30
--- NOTE | 2018-05-13 19:37 | NUR ---
HAND-OFF: Report given to ANISH Rodgers. Pt stable.
[2018-05-13 19:44] VITALS: BP 111/66
--- NOTE | 2018-05-13 19:45 | NUR ---
NURSE NOTES: Patient in bed, awake. Patient currently agitated. Shouted at nurse. Spoke in a calm manner. Patient still speaking in vulgar words. Will come back. Bed in low and locked position. Provided safe environment. No s/s of pain or discomfort noted. Respiration is even and unlabored. call light is at bedside. Will continue plan of care. Will do frequent visual checks.
[2018-05-13] MEDS: Tamsulosin 0.4mg cap ORAL SCH (21:00)
--- NOTE | 2018-05-13 21:50 | NUR ---
NURSE NOTES: Patient in bed, confused. Patient was cursing at nurse. Tried to give mediations with explanations, patient was refusing. Patient using vulgar words at nurse. Tried to calm patient. Given space.
[2018-05-13 23:57] VITALS: BP 114/65
--- NOTE | 2018-05-14 06:30 | NUR ---
NURSE NOTES: Patient in bed, cleaned. All PO meds given as ordered.
--- NOTE | 2018-05-14 06:53 | NUR ---
NURSE NOTES: Patient refused blood draws, CN made aware. Explained to the patient the risks and benefits, still refused.
--- NOTE | 2018-05-14 06:54 | NUR ---
NURSE NOTES: Received report from ANISH Rodgers. Pt in bed, asleep, respiration regular rhythm, unlabored, no apparent distress noted, call light within reach, bed in lowest position.
--- NOTE | 2018-05-14 06:54 | NUR ---
HAND-OFF: Report given to ANISH Wheatley.
--- NOTE | 2018-05-14 07:34 | General Progress Note ---
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 Patient on regular diet push p.o. One-to-one feeder IV/p.o. hydration Antibiotics PPI Bowel regimen, refused Senokot Follow-up labs Subjective ROS Limited/Unobtainable: Yes Allergies: Coded Allergies: BENZTROPINE (Unverified Allergy, Unknown, 02/22/14) HALOPERIDOL (Unverified Allergy, Unknown, 02/22/14) PENICILLINS (Unverified Allergy, Unknown, 04/14/18) tolerated Ceftriaxone 06/2017 Subjective no event Objective Last 24 Hour Vital Signs Date Time Temp Pulse Resp B/P (MAP) Pulse Ox O2 Delivery O2 Flow Rate FiO2 05/14/18 04:00 18 05/13/18 23:57 96.5 65 20 114/65 (81) 95 05/13/18 21:00 Room Air 05/13/18 19:44 97.5 90 20 111/66 (81) 95 05/13/18 16:00 97.6 55 20 136/91 (106) 98 05/13/18 11:46 98.0 52 18 116/75 (89) 98 05/13/18 11:16 50 118/78 05/13/18 09:00 Room Air 05/13/18 08:00 97.8 50 18 118/78 (91) 98 Intake and Output 05/13/18 05/14/18 19:00 07:00 Intake Total 800 ml Balance 800 ml Intake Oral 800 ml # Voids 3 3 # Bowel Movements 1 Height (Feet): 5 Height (Inches): 10.00 Weight (Pounds): 162 General Appearance: alert EENT: normal ENT inspection Neck: supple Cardiovascular: normal rate Respiratory/Chest: decreased breath sounds Abdomen: normal bowel sounds, non tender, soft Vosoghi,Juliocesar MD May 14, 2018 07:34
[2018-05-14 08:00] VITALS: BP 127/61
--- NOTE | 2018-05-14 08:33 | General Progress Note ---
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 SNOMED: 01465132 (2) Basal cell carcinoma ICD Codes: C44.91 - Basal cell carcinoma of skin, unspecified SNOMED: 279893883 (3) Generalized weakness ICD Codes: R53.1 - Weakness SNOMED: 01255873 (4) Cellulitis and abscess of face ICD Codes: L03.211 - Cellulitis of face; L02.01 - Cutaneous abscess of face SNOMED: 896130820 (5) Severe malnutrition ICD Codes: E43 - Unspecified severe protein-calorie malnutrition SNOMED: 19896858 (6) Failure to thrive in adult ICD Codes: R62.7 - Adult failure to thrive SNOMED: 231292055 (7) HTN (hypertension) ICD Codes: I10 - Essential (primary) hypertension SNOMED: 52395806 (8) UTI (urinary tract infection) ICD Codes: N39.0 - Urinary tract infection, site not specified SNOMED: 68422906 Status: stable, progressing Assessment/Plan pt diet abx prn cbc bmp am dc if clear Subjective Constitutional: Reports: weakness Allergies: Coded Allergies: BENZTROPINE (Unverified Allergy, Unknown, 02/22/14) HALOPERIDOL (Unverified Allergy, Unknown, 02/22/14) PENICILLINS (Unverified Allergy, Unknown, 04/14/18) tolerated Ceftriaxone 06/2017 All Systems: reviewed and negative except above Subjective sleepy calm Objective Last 24 Hour Vital Signs Date Time Temp Pulse Resp B/P (MAP) Pulse Ox O2 Delivery O2 Flow Rate FiO2 05/14/18 04:00 18 05/13/18 23:57 96.5 65 20 114/65 (81) 95 05/13/18 21:00 Room Air 05/13/18 19:44 97.5 90 20 111/66 (81) 95 05/13/18 16:00 97.6 55 20 136/91 (106) 98 05/13/18 11:46 98.0 52 18 116/75 (89) 98 05/13/18 11:16 50 118/78 05/13/18 09:00 Room Air Intake and Output 05/13/18 05/14/18 19:00 07:00 Intake Total 800 ml Balance 800 ml Intake Oral 800 ml # Voids 3 3 # Bowel Movements 1 Height (Feet): 5 Height (Inches): 10.00 Weight (Pounds): 162 General Appearance: lethargic EENT: normal ENT inspection Neck: normal alignment Cardiovascular: normal peripheral pulses, normal rate, regular rhythm Respiratory/Chest: chest wall non-tender, lungs clear, normal breath sounds Abdomen: normal bowel sounds, non tender, soft Extremities: normal inspection Edema: no edema noted Arm (L), no edema noted Arm (R), no edema noted Leg (L), no edema noted Leg (R), no edema noted Pedal (L), no edema noted Pedal (R), no edema noted Generalized Neurologic: motor weakness Skin: normal pigmentation, warm/dry Julio Higgins DO May 14, 2018 08:33
[2018-05-14] MEDS: Phospha 250 Neutral tab ORAL SCH ×3 (08:42→17:43)
[2018-05-14] MEDS: Docusate 100mg cap ORAL SCH ×2 (08:43→17:43)
[2018-05-14] MEDS: OLANZapine 10mg tab ORAL SCH ×3 (08:43→17:43)
[2018-05-14 12:00] VITALS: BP 106/55
--- NOTE | 2018-05-14 12:29 | Pulmonology Progress Note ---
Assessment/Plan Problems: (1) Failure to thrive in adult (2) UTI (urinary tract infection) (3) HTN (hypertension) (4) Severe malnutrition (5) Generalized weakness (6) Constipation Assessment/Plan doing fairly no new complains all meds and notes reviewed d/w nurse. dc planning Subjective ROS Limited/Unobtainable: No Constitutional: Reports: no symptoms HEENT: Repors: no symptoms Allergies: Coded Allergies: BENZTROPINE (Unverified Allergy, Unknown, 02/22/14) HALOPERIDOL (Unverified Allergy, Unknown, 02/22/14) PENICILLINS (Unverified Allergy, Unknown, 04/14/18) tolerated Ceftriaxone 06/2017 Objective Last 24 Hour Vital Signs Date Time Temp Pulse Resp B/P (MAP) Pulse Ox O2 Delivery O2 Flow Rate FiO2 05/14/18 09:00 Room Air 05/14/18 08:00 98.1 75 18 127/61 (83) 92 05/14/18 04:00 18 05/13/18 23:57 96.5 65 20 114/65 (81) 95 05/13/18 21:00 Room Air 05/13/18 19:44 97.5 90 20 111/66 (81) 95 05/13/18 16:00 97.6 55 20 136/91 (106) 98 Intake and Output 05/13/18 05/14/18 19:00 07:00 Intake Total 800 ml Balance 800 ml Intake Oral 800 ml # Voids 3 3 # Bowel Movements 1 Objective General Appearance: WD/WN HEENT: normocephalic, right eye patch Respiratory/Chest: chest wall non-tender, lungs clear Breasts: no masses Cardiovascular: normal peripheral pulses, normal rate Abdomen: normal bowel sounds, soft, non tender Extremities: no cyanosis Skin: no rash 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 Lymphatic: no neck adenopathy Current Medications Medications (Trade) Dose Ordered Sig/Jordi Route PRN Reason Start Time Stop Time Status Last Admin Dose Admin Acetaminophen/ Hydrocodone Bitart ([place] 5/325) 1 tab Q4H PRN ORAL Moderate Pain (Pain Scale 4-6) 05/10/18 12:50 05/17/18 12:49 Docusate Sodium (Colace) 100 mg TWICE A DAY ORAL 05/07/18 18:00 06/06/18 17:59 05/14/18 08:43 Famotidine (Pepcid) 20 mg BID ORAL 05/05/18 18:00 05/18/18 17:59 05/14/18 08:43 Lorazepam (Ativan) 1 mg Q6H PRN ORAL ANXIETY 05/13/18 12:45 05/20/18 12:44 Olanzapine (ZyPREXA) 10 mg TID ORAL 05/05/18 18:00 05/25/18 17:59 05/14/18 08:43 Phosphorus (Phospha 250 Neutral) 500 mg THREE TIMES A DAY ORAL 05/05/18 18:00 05/20/18 17:59 05/14/18 08:42 Polyethylene Glycol (Miralax) 17 gm DAILYPRN PRN ORAL Constipation 05/07/18 16:00 06/06/18 15:59 05/07/18 17:35 Quetiapine Fumarate (SEROquel) 150 mg EVERY 8 HOURS ORAL 05/05/18 22:00 05/21/18 05:59 05/14/18 06:05 Tamsulosin HCl (Flomax) 0.4 mg BEDTIME ORAL 05/05/18 21:00 05/16/18 20:59 05/11/18 21:03 Waleska Thornton MD May 14, 2018 12:29
[2018-05-14 16:00] VITALS: BP 106/65
--- NOTE | 2018-05-14 18:48 | Nephrology Progress Note ---
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 DC planning Subjective ROS Limited/Unobtainable: No Constitutional: Reports: malaise Objective Objective Last 24 Hour Vital Signs Date Time Temp Pulse Resp B/P (MAP) Pulse Ox O2 Delivery O2 Flow Rate FiO2 05/14/18 16:00 98.4 60 18 106/65 (79) 94 05/14/18 12:00 98.8 64 18 106/55 (72) 94 05/14/18 09:00 Room Air 05/14/18 08:00 98.1 75 18 127/61 (83) 92 05/14/18 04:00 18 05/13/18 23:57 96.5 65 20 114/65 (81) 95 05/13/18 21:00 Room Air 05/13/18 19:44 97.5 90 20 111/66 (81) 95 Intake and Output 05/13/18 05/14/18 18:59 06:59 Intake Total 800 ml Balance 800 ml Intake Oral 800 ml # Voids 3 3 # Bowel Movements 1 Height (Feet): 5 Height (Inches): 10.00 Weight (Pounds): 164 General Appearance: no apparent distress Objective no change Al Roper MD May 14, 2018 18:48
--- NOTE | 2018-05-14 19:40 | NUR ---
NURSE NOTES: Report taken from ANISH Licea. Patient is asleep in bed, easily arousable. Patient got slightly agitated when trying to talk to him, stated continually that he wanted to be left alone. wound over Right eye intact, small amount of light yellow liquid draining, will replace dressing once patient is calm. Small skin tears on left knuckles. Dry and intact scabs over left side of face and near ear, these are from patient scratching, continue to monitor wounds. No IV site, MD was made aware. No sings of distress, on room air, states that he is currently having no pain. Continue to monitor. Bed in lowest position, call light within reach.
--- NOTE | 2018-05-14 20:10 | NUR ---
HAND-OFF: Report given to ANISH Paul.
[2018-05-14] MEDS: Tamsulosin 0.4mg cap ORAL SCH (21:00)
--- NOTE | 2018-05-14 21:00 | NUR ---
NURSE NOTES: Patient refused 2100 medications. Continually stated that he wanted to be left alone. RN explained both risks and benefits of the medication.
--- NOTE | 2018-05-15 00:07 | NUR ---
NURSE NOTES: Patient removed previous dressing over right eye. RN attempted to clean and apply new dressing, patient got agitated and loud. Stated that he did not want anything and did not want to be bothered.
--- NOTE | 2018-05-15 06:26 | NUR ---
NURSE NOTES: Patient refused bed bath as well as medications at 0600.
--- NOTE | 2018-05-15 07:36 | NUR ---
NURSE NOTES: Patient received in stable condition, resting in bed. Breathing unlabored on room air, no s/s of respiratory distress. Responds to questions. Denies pain at this time. Bed locked in low position, call light within reach. Will continue to monitor.
--- NOTE | 2018-05-15 07:37 | NUR ---
HAND-OFF: Report given to ANISH Gallegos.
[2018-05-15 08:00] VITALS: BP 128/77
[2018-05-15] MEDS: Docusate 100mg cap ORAL SCH ×2 (09:25→18:15)
[2018-05-15] MEDS: LORazepam 1mg tab ORAL PRN (09:26)
[2018-05-15] MEDS: Phospha 250 Neutral tab ORAL SCH ×3 (09:26→18:15)
[2018-05-15] MEDS: OLANZapine 10mg tab ORAL SCH ×3 (09:26→18:15)
--- NOTE | 2018-05-15 09:56 | Infectious Diseases Prog Note ---
Assessment/Plan Assessment/Plan Sepsis- ?source- r/o UTI, PNA- now resolved Afebrile Leukocytosis Increased 04/27/18 , recurrent- r/o Cdiff, RACHNA -CXR 05/09 :Hypoventilatory exam. No definite acute process -CXR 04/28: No acute findings Unclear source no sign of active infection resection of carcinoma from right side of face/eye Wnd Cx : GPC -hx of superinfected necrotic mass and possible micro abscess s/p Tx 06/2017 -wound cx MRSA, diphterouids, ESBL Proteus 04/14/19 Wound Cx Providencia and MRSA FTT COPD dysphasia schizophrenia HTN MDD legally blind hx of VRE/MRSA colonization Plan: - Continue to Monitor off abx unless febrile, increasing leukocytosis and/or HD instability (patient refusing blood draws) - 04/24/18 SP PO Bactrim DS BID - 04/20/18 SP empiric Azactam , Flagyl and IV Vanco d# 6/10 - 04/15/18 SP Ceftriaxone d# 2 -f/u u/a w/ reflex, Bcx x2 (rfused Bcx) -Cdiff if diarrhea -Monitor CBC/CMP, temperatures -CBC, CMP, amylase, lipase am (refused labs) Subjective Allergies: Coded Allergies: BENZTROPINE (Unverified Allergy, Unknown, 02/22/14) HALOPERIDOL (Unverified Allergy, Unknown, 02/22/14) PENICILLINS (Unverified Allergy, Unknown, 04/14/18) tolerated Ceftriaxone 06/2017 Subjective Patient intermittently refusing labs and meds Afebrile Objective Vital Signs Last 24 Hour Vital Signs Date Time Temp Pulse Resp B/P (MAP) Pulse Ox O2 Delivery O2 Flow Rate FiO2 05/15/18 08:00 97.9 67 19 128/77 (94) 95 05/14/18 21:00 Room Air 05/14/18 16:00 98.4 60 18 106/65 (79) 94 05/14/18 12:00 98.8 64 18 106/55 (72) 94 Height (Feet): 5 Height (Inches): 10.00 Weight (Pounds): 164 Objective General: NAD HEENT: NCAT, right eye with large ulcer no surrounding erythema or purulence but scar and some necrotic tissue present, left eye - visible cataract, glassy/ hazy appearance Respiratory: CATB, No W/C Cardiovascular no edema, tachycardia Gastrointestinal: normal bowel sounds, non tender, soft Current Medications Medications (Trade) Dose Ordered Sig/Jordi Route PRN Reason Start Time Stop Time Status Last Admin Dose Admin Acetaminophen/ Hydrocodone Bitart ([place] 5/325) 1 tab Q4H PRN ORAL Moderate Pain (Pain Scale 4-6) 05/10/18 12:50 05/17/18 12:49 Docusate Sodium (Colace) 100 mg TWICE A DAY ORAL 05/07/18 18:00 06/06/18 17:59 05/15/18 09:25 Famotidine (Pepcid) 20 mg BID ORAL 05/05/18 18:00 05/18/18 17:59 05/15/18 09:26 Lorazepam (Ativan) 1 mg Q6H PRN ORAL ANXIETY 05/13/18 12:45 05/20/18 12:44 05/15/18 09:26 Olanzapine (ZyPREXA) 10 mg TID ORAL 05/05/18 18:00 05/25/18 17:59 05/15/18 09:26 Phosphorus (Phospha 250 Neutral) 500 mg THREE TIMES A DAY ORAL 05/05/18 18:00 05/20/18 17:59 05/15/18 09:26 Polyethylene Glycol (Miralax) 17 gm DAILYPRN PRN ORAL Constipation 05/07/18 16:00 06/06/18 15:59 05/07/18 17:35 Quetiapine Fumarate (SEROquel) 150 mg EVERY 8 HOURS ORAL 05/05/18 22:00 05/21/18 05:59 05/14/18 06:05 Tamsulosin HCl (Flomax) 0.4 mg BEDTIME ORAL 05/05/18 21:00 05/16/18 20:59 05/11/18 21:03 Jozef Greene MD May 15, 2018 09:56
--- NOTE | 2018-05-15 11:37 | GI Progress Note ---
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 Ferguson Assessment/Plan psych f/u defer PEG, the patient has shown improvement in caloric intake and shows no signs of dysphagia or risk for aspiration. Patient on regular diet push p.o. One-to-one feeder IV/p.o. hydration Antibiotics PPI Bowel regimen, refused Senokot Follow-up labs The patient was seen and examined at bedside and all new and available data was reviewed in the patients chart. I agree with the above findings, impression and plan. (Patient seen earlier today. Signature stamp does not reflect patient encounter time.). - Juliocesar Ferguson MD Subjective Subjective Limited Objective Last 24 Hour Vital Signs Date Time Temp Pulse Resp B/P (MAP) Pulse Ox O2 Delivery O2 Flow Rate FiO2 05/15/18 09:00 Room Air 05/15/18 08:00 97.9 67 19 128/77 (94) 95 05/14/18 21:00 Room Air 05/14/18 16:00 98.4 60 18 106/65 (79) 94 05/14/18 12:00 98.8 64 18 106/55 (72) 94 Intake and Output 05/14/18 05/15/18 19:00 07:00 Intake Total 1320 ml 240 ml Balance 1320 ml 240 ml Intake Oral 1320 ml 240 ml # Bowel Movements 1 1 Height (Feet): 5 Height (Inches): 10.00 Weight (Pounds): 164 General Appearance: WD/WN, no apparent distress, alert Cardiovascular: normal rate Respiratory/Chest: normal breath sounds, no respiratory distress Abdominal Exam: normal bowel sounds, non tender, soft, GT site Extremities: non-tender Objective Legally blind Roxanna Saavedra NP May 15, 2018 11:37
[2018-05-15 12:00] VITALS: BP 121/73
--- NOTE | 2018-05-15 12:58 | NUR ---
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 97.5 HR 59 RR 18 B/P 121/73 RA 98% IS: COLACE PO SEROQUEL PO FLOMAX PO ZYPREXA PO PLACEMENT PENDING MED/SURG STATUS
--- NOTE | 2018-05-15 13:05 | Nephrology Progress Note ---
Assessment/Plan Problem List: (1) HTN (hypertension) (2) Failure to thrive in adult (3) Cellulitis and abscess of face (4) Schizophreniform psychosis Assessment WBC now wnl (1) Dysphasia (2) Encounter for PEG (percutaneous endoscopic gastrostomy) (3) Schizophrenia (4) Failure to thrive in adult (5) Generalized weakness (6) Severe malnutrition (7) Dehydration (8) Schizophrenia (9) HTN (10) Legally Blind Plan Flomax Psych mangement per consultants ? DC planning Subjective ROS Limited/Unobtainable: No Objective Objective Last 24 Hour Vital Signs Date Time Temp Pulse Resp B/P (MAP) Pulse Ox O2 Delivery O2 Flow Rate FiO2 05/15/18 12:00 97.5 59 18 121/73 (89) 96 05/15/18 09:00 Room Air 05/15/18 08:00 97.9 67 19 128/77 (94) 95 05/14/18 21:00 Room Air 05/14/18 16:00 98.4 60 18 106/65 (79) 94 Intake and Output 05/14/18 05/15/18 19:00 07:00 Intake Total 1320 ml 240 ml Balance 1320 ml 240 ml Intake Oral 1320 ml 240 ml # Bowel Movements 1 1 Height (Feet): 5 Height (Inches): 10.00 Weight (Pounds): 164 General Appearance: no apparent distress Objective no change Al Roper MD May 15, 2018 13:05
--- NOTE | 2018-05-15 13:37 | General Progress Note ---
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 SNOMED: 05046942 (2) Basal cell carcinoma ICD Codes: C44.91 - Basal cell carcinoma of skin, unspecified SNOMED: 658986544 (3) Generalized weakness ICD Codes: R53.1 - Weakness SNOMED: 33689791 (4) Cellulitis and abscess of face ICD Codes: L03.211 - Cellulitis of face; L02.01 - Cutaneous abscess of face SNOMED: 964088412 (5) Severe malnutrition ICD Codes: E43 - Unspecified severe protein-calorie malnutrition SNOMED: 69992927 (6) Failure to thrive in adult ICD Codes: R62.7 - Adult failure to thrive SNOMED: 694328754 (7) HTN (hypertension) ICD Codes: I10 - Essential (primary) hypertension SNOMED: 94589393 (8) UTI (urinary tract infection) ICD Codes: N39.0 - Urinary tract infection, site not specified SNOMED: 46445588 Status: stable, progressing Assessment/Plan pt diet abx prn cbc bmp am dc if clear Subjective Constitutional: Reports: weakness Allergies: Coded Allergies: BENZTROPINE (Unverified Allergy, Unknown, 02/22/14) HALOPERIDOL (Unverified Allergy, Unknown, 02/22/14) PENICILLINS (Unverified Allergy, Unknown, 04/14/18) tolerated Ceftriaxone 06/2017 All Systems: reviewed and negative except above Subjective sleepy calm Objective Last 24 Hour Vital Signs Date Time Temp Pulse Resp B/P (MAP) Pulse Ox O2 Delivery O2 Flow Rate FiO2 05/15/18 12:00 97.5 59 18 121/73 (89) 96 05/15/18 09:00 Room Air 05/15/18 08:00 97.9 67 19 128/77 (94) 95 05/14/18 21:00 Room Air 05/14/18 16:00 98.4 60 18 106/65 (79) 94 Intake and Output 05/14/18 05/15/18 19:00 07:00 Intake Total 1320 ml 240 ml Balance 1320 ml 240 ml Intake Oral 1320 ml 240 ml # Bowel Movements 1 1 Height (Feet): 5 Height (Inches): 10.00 Weight (Pounds): 164 General Appearance: lethargic EENT: normal ENT inspection Neck: normal alignment Cardiovascular: normal peripheral pulses, normal rate, regular rhythm Respiratory/Chest: chest wall non-tender, lungs clear, normal breath sounds Abdomen: normal bowel sounds, non tender, soft Extremities: normal inspection Edema: no edema noted Arm (L), no edema noted Arm (R), no edema noted Leg (L), no edema noted Leg (R), no edema noted Pedal (L), no edema noted Pedal (R), no edema noted Generalized Neurologic: motor weakness Skin: normal pigmentation, warm/dry Julio Higgins DO May 15, 2018 13:37
--- NOTE | 2018-05-15 13:42 | Cardiac Electrophysiology PN ---
Assessment/Plan Assessment/Plan 1. Sinus tachycardia due to anxiety and infection. No Fib.HR better 2. Hypertension, refusing BP meds. Norvasc DCed 3. Schizophrenia. 4. Right facial basal cell carcinoma, status post surgery 5. Dysphagia, resolved 6. Non compliant DW RN Subjective Subjective No events. Placement pending Objective Last 24 Hour Vital Signs Date Time Temp Pulse Resp B/P (MAP) Pulse Ox O2 Delivery O2 Flow Rate FiO2 05/15/18 12:00 97.5 59 18 121/73 (89) 96 05/15/18 09:00 Room Air 05/15/18 08:00 97.9 67 19 128/77 (94) 95 05/14/18 21:00 Room Air 05/14/18 16:00 98.4 60 18 106/65 (79) 94 Intake and Output 05/14/18 05/15/18 19:00 07:00 Intake Total 1320 ml 240 ml Balance 1320 ml 240 ml Intake Oral 1320 ml 240 ml # Bowel Movements 1 1 Objective HEAD AND NECK: No JVD. The right side of his face scarred Right eye blind LUNGS: Clear CARDIOVASCULAR: RRR. No GRM ABDOMEN: Soft EXTREMITIES: No edema. Teto Branch MD May 15, 2018 13:42
--- NOTE | 2018-05-15 14:37 | General Progress Note ---
Assessment/Plan Assessment/Plan # Leukocytosis. Secondary to underlying infection, sepsis of R eye/hx malignancy that side --> Monitor and trend wbc for improvement -->16.6-->23.0-->31.5-->9.2-->11.2-->22.9-->10-->15 --> Peripheral smear has been reviewed, no blasts noted --> Medications have been reviewed --> Imaging has been reviewed --> cont on abx, empiric treatment --> per ID management # Carcinoma resection of from right side of face/eye --> as per outpatient onc # Anemia of chronic disease --> anemia panel has been reviewed --> trend hgb 12.8-->10.2-->10 # FTT --> refusing care --> defer peg tube given improvement in po intake --> calorie counts and weights weekly --> mirtazpine as needed # Sepsis. improved # H/O superinfected necrotic mass and possible micro abscess s/p Tx 06/2017 # Wound. # COPD. # Dysphasia # Schizophrenia # HTN. # Legally blind Time and date note entered in EMR does not reflect time and date of encounter. GREATLY APPRECIATE CONSULTATION. Subjective Constitutional: Denies: no symptoms, chills, diaphoresis, fever, malaise, weakness, other HEENT: Denies: no symptoms, eye pain, blurred vision, tearing, double vision, ear pain, ear discharge, nose pain, nose congestion, throat pain, throat swelling, mouth pain, mouth swelling, other Cardiovascular: Denies: no symptoms, chest pain, edema, irregular heart rate, lightheadedness, palpitations, syncope, other Respiratory: Denies: no symptoms, cough, orthopnea, shortness of breath, SOB with excertion, SOB at rest, sputum, stridor, wheezing, other Gastrointestinal/Abdominal: Denies: no symptoms, abdomen distended, abdominal pain, black stools, tarry stools, blood in stool, constipated, diarrhea, difficulty swallowing, nausea, poor appetite, poor fluid intake, rectal bleeding , vomiting, other Genitourinary: Denies: no symptoms, burning, discharge, frequency, flank pain, hematuria, incontinence, pain, urgency, other Neurologic/Psychiatric: Denies: no symptoms, anxiety, depressed, emotional problems, headache, numbness, paresthesia, pre-existing deficit, seizure, tingling, tremors, weakness, other Endocrine: Denies: no symptoms, excessive sweating, flushing, intolerance to cold, intolerance to heat, increased hunger, increased thirst, increased urine, unexplained weight gain, unexplained weight loss, other Hematologic/Lymphatic: Denies: no symptoms, anemia, easy bleeding, easy bruising, other Allergies: Coded Allergies: BENZTROPINE (Unverified Allergy, Unknown, 02/22/14) HALOPERIDOL (Unverified Allergy, Unknown, 02/22/14) PENICILLINS (Unverified Allergy, Unknown, 04/14/18) tolerated Ceftriaxone 06/2017 Subjective 04/15: Pt awake and agitated. No acute events. Pt refusing meds. 04/16: wbc severely elevated, seen by Id, on broad spectrum antifungals, foul language, very aggressive 04/18: no events, mumbling, minimally conversive, no fevers, down on ivf 04/19: pt is awake and resting in bed. refusing care, aggressive, no events 04/20: Pt is awake and alert, refusing care, minimally conversive, on abx, wbc have improved. 04/21: Pt is awake and resting in bed, aggressive, mumbling, 04/22: Pt is resting in bed. PEG has been defered, the patient has shown improvement in caloric intake and shows no signs of dysphagia or risk for aspiration. 04/23: Pt is seen in the room, resting in bed, refusing care, on abx, pending labs /: No events, has been agitated overnight, refusing care 04/25: Pt is awake and resting in bed, refusing labs, agitated, screaming, refusing care 04/26: no major events, no fevers or chills, no chest pain or sob 04/27: pt is seen by bedside, awake and comfortable, wbc is at 22.9 today. 04/28: peg has been deferred, gi recs reviewed, no events, slightly agitated 04/29: no events, refusing care, no change other, remains aggressive, says "don' t touch me" 04/30: continues to cuss out, rn by bedside with conservator and able to chnage wound on eye R 05/01: Pt is awake and calm, alert oriented x1, remains afebrile off abx and leukocytosis resolved 05/02: Pt is seen by bedside, awake and calm, no events. pending labs 05/03: Pt is alert and oriented x1, remains afebrile off abx and leukocytosis resolved 05/04: accepted at [facility] as early as today 05/05: pt came back from [facility]. They were unable to accept the pt due to pt's agitation worsenin 05/09: Pt is awake, seen by bedside, pending placement, no events 05/10: no fevers noted, no chills, getting abx, but refuisng blood draws 05/11: seen by bedside, awake and comfortable, no overnight events, refusing blood draws 05/12: Pt is awake, confused, refusing labs, no events reported 05/13: seen by bedside, awake, comfortable, no events, refusing meds. placement pending 05/15: pt is awake, no fevers or chills, no events, placement pending. Objective Last 24 Hour Vital Signs Date Time Temp Pulse Resp B/P (MAP) Pulse Ox O2 Delivery O2 Flow Rate FiO2 05/15/18 12:00 97.5 59 18 121/73 (89) 96 05/15/18 09:00 Room Air 05/15/18 08:00 97.9 67 19 128/77 (94) 95 05/14/18 21:00 Room Air 05/14/18 16:00 98.4 60 18 106/65 (79) 94 Intake and Output 05/14/18 05/15/18 18:59 06:59 Intake Total 1320 ml 240 ml Balance 1320 ml 240 ml Intake Oral 1320 ml 240 ml # Bowel Movements 1 1 Height (Feet): 5 Height (Inches): 10.00 Weight (Pounds): 164 Objective Vitals: Have been reviewed General Appearance: alert, agitated Head: normocephalic, atraumatic Eyes: right eye abnormal pupil - right eye has patch which covers the right temporal area of face as well from cancer ressection; left eye other - visible cataract, glassy/hazy appearance, unchanged ENT: hearing grossly normal, other Neck: full range of motion Respiratory: chest non-tender, lungs clear Cardiovascular no edema, tachycardia Gastrointestinal: normal bs, non tender, soft MSK: back normal, non-tender, bilateral hand contractures Skin: normal color, no rash, warm/dry Jr Daly MD May 15, 2018 14:37
--- NOTE | 2018-05-15 14:55 | Pulmonology Progress Note ---
Assessment/Plan Problems: (1) Failure to thrive in adult (2) UTI (urinary tract infection) (3) HTN (hypertension) (4) Severe malnutrition (5) Generalized weakness (6) Constipation Assessment/Plan doing fairly no new complains all meds and notes reviewed d/w nurse. dc planning Subjective ROS Limited/Unobtainable: Yes Constitutional: Reports: no symptoms HEENT: Repors: no symptoms Allergies: Coded Allergies: BENZTROPINE (Unverified Allergy, Unknown, 02/22/14) HALOPERIDOL (Unverified Allergy, Unknown, 02/22/14) PENICILLINS (Unverified Allergy, Unknown, 04/14/18) tolerated Ceftriaxone 06/2017 Objective Last 24 Hour Vital Signs Date Time Temp Pulse Resp B/P (MAP) Pulse Ox O2 Delivery O2 Flow Rate FiO2 05/15/18 12:00 97.5 59 18 121/73 (89) 96 05/15/18 09:00 Room Air 05/15/18 08:00 97.9 67 19 128/77 (94) 95 05/14/18 21:00 Room Air 05/14/18 16:00 98.4 60 18 106/65 (79) 94 Intake and Output 05/14/18 05/15/18 19:00 07:00 Intake Total 1320 ml 240 ml Balance 1320 ml 240 ml Intake Oral 1320 ml 240 ml # Bowel Movements 1 1 Objective General Appearance: WD/WN HEENT: normocephalic, right eye patch Respiratory/Chest: chest wall non-tender, lungs clear Breasts: no masses Cardiovascular: normal peripheral pulses, normal rate Abdomen: normal bowel sounds, soft, non tender Extremities: no cyanosis Skin: no rash 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 Lymphatic: no neck adenopathy Current Medications Medications (Trade) Dose Ordered Sig/Jordi Route PRN Reason Start Time Stop Time Status Last Admin Dose Admin Acetaminophen/ Hydrocodone Bitart ([place] 5/325) 1 tab Q4H PRN ORAL Moderate Pain (Pain Scale 4-6) 05/10/18 12:50 05/17/18 12:49 Docusate Sodium (Colace) 100 mg TWICE A DAY ORAL 05/07/18 18:00 06/06/18 17:59 05/15/18 09:25 Famotidine (Pepcid) 20 mg BID ORAL 05/05/18 18:00 1/31/19 17:59 05/15/18 09:26 Lorazepam (Ativan) 1 mg Q6H PRN ORAL ANXIETY 05/13/18 12:45 05/20/18 12:44 05/15/18 09:26 Olanzapine (ZyPREXA) 10 mg TID ORAL 05/05/18 18:00 05/25/18 17:59 05/15/18 13:23 Phosphorus (Phospha 250 Neutral) 500 mg THREE TIMES A DAY ORAL 05/05/18 18:00 05/20/18 17:59 05/15/18 13:23 Polyethylene Glycol (Miralax) 17 gm DAILYPRN PRN ORAL Constipation 05/07/18 16:00 06/06/18 15:59 05/07/18 17:35 Quetiapine Fumarate (SEROquel) 150 mg EVERY 8 HOURS ORAL 05/05/18 22:00 05/21/18 05:59 05/15/18 13:23 Tamsulosin HCl (Flomax) 0.4 mg BEDTIME ORAL 05/05/18 21:00 05/16/18 20:59 05/11/18 21:03 Waleska Thornton MD May 15, 2018 14:55
[2018-05-15 16:00] VITALS: BP 114/67
--- NOTE | 2018-05-15 19:29 | NUR ---
HAND-OFF: Report given to Myranda OCONNELL.
--- NOTE | 2018-05-15 19:30 | NUR ---
NURSE NOTES: Patient asleep in bed, not in respiratory distress, no signs of pain. Call light and needs in reach. Bed in lowest position, lock engaged and alarm on. Will continue to monitor.
[2018-05-15] MEDS: Tamsulosin 0.4mg cap ORAL SCH (21:18)
[2018-05-16 04:00] VITALS: BP 111/64
--- NOTE | 2018-05-16 07:25 | NUR ---
HAND-OFF: Report given to ANISH Powell.
--- NOTE | 2018-05-16 07:43 | NUR ---
NURSE NOTES: Patient is awake, alert x2, in room air, no sign of distress and shortness of breath. No sign of chest pain. No IV access, MD is aware. Dressing of the right eye dry and intact. Patient incontinent x2. Side rails up x2, breaks engaged, bed at lowest position. Will keep monitoring,
[2018-05-16 08:00] VITALS: BP 131/69
[2018-05-16] MEDS: Docusate 100mg cap ORAL SCH ×2 (09:07→16:59)
[2018-05-16] MEDS: OLANZapine 10mg tab ORAL SCH ×3 (09:07→16:59)
[2018-05-16] MEDS: Phospha 250 Neutral tab ORAL SCH ×3 (09:08→17:00)
--- NOTE | 2018-05-16 09:31 | Infectious Diseases Prog Note ---
Assessment/Plan Assessment/Plan Sepsis- ?source- r/o UTI, PNA- now resolved Afebrile Leukocytosis Increased 04/27/18 , recurrent- r/o Cdiff, RACHNA -CXR 05/09 :Hypoventilatory exam. No definite acute process -CXR 04/28: No acute findings Unclear source no sign of active infection resection of carcinoma from right side of face/eye Wnd Cx : GPC -hx of superinfected necrotic mass and possible micro abscess s/p Tx 06/2017 -wound cx MRSA, diphterouids, ESBL Proteus 04/14/19 Wound Cx Providencia and MRSA FTT COPD dysphasia schizophrenia HTN MDD legally blind hx of VRE/MRSA colonization Plan: - Continue to Monitor off abx - 04/24/18 SP PO Bactrim DS BID - 04/20/18 SP empiric Azactam , Flagyl and IV Vanco d# 6/ - 04/15/18 SP Ceftriaxone d# 2 -f/u u/a w/ reflex, Bcx x2 (rfused Bcx) -Cdiff if diarrhea -Monitor CBC/CMP, temperatures -CBC, CMP, amylase, lipase am (refused labs) Subjective Allergies: Coded Allergies: BENZTROPINE (Unverified Allergy, Unknown, 02/22/14) HALOPERIDOL (Unverified Allergy, Unknown, 02/22/14) PENICILLINS (Unverified Allergy, Unknown, 04/14/18) tolerated Ceftriaxone 06/2017 Subjective Patient intermittently refusing labs and meds Afebrile Sitting in bed. Taking to himself Objective Vital Signs Last 24 Hour Vital Signs Date Time Temp Pulse Resp B/P (MAP) Pulse Ox O2 Delivery O2 Flow Rate FiO2 05/16/18 04:00 97.1 66 18 111/64 (80) 98 05/15/18 21:00 Room Air 05/15/18 16:00 97.5 61 19 114/67 (83) 94 05/15/18 12:00 97.5 59 18 121/73 (89) 96 Height (Feet): 5 Height (Inches): 10.00 Weight (Pounds): 164 Objective General: NAD, Siting in bed HEENT: NCAT, right eye with large ulcer no surrounding erythema or purulence but scar and some necrotic tissue present, left eye - visible cataract, glassy/ hazy appearance Respiratory: CATB, No W/C Cardiovascular no edema, tachycardia Gastrointestinal: normal bowel sounds, non tender, soft Current Medications Medications (Trade) Dose Ordered Sig/Jordi Route PRN Reason Start Time Stop Time Status Last Admin Dose Admin Acetaminophen/ Hydrocodone Bitart ([place] 5/325) 1 tab Q4H PRN ORAL Moderate Pain (Pain Scale 4-6) 05/10/18 12:50 05/17/18 12:49 Docusate Sodium (Colace) 100 mg TWICE A DAY ORAL 05/07/18 18:00 06/06/18 17:59 05/16/18 09:07 Famotidine (Pepcid) 20 mg BID ORAL 05/05/18 18:00 05/18/18 17:59 05/16/18 09:07 Lorazepam (Ativan) 1 mg Q6H PRN ORAL ANXIETY 05/13/18 12:45 05/20/18 12:44 05/15/18 09:26 Olanzapine (ZyPREXA) 10 mg TID ORAL 05/05/18 18:00 05/25/18 17:59 05/16/18 09:07 Phosphorus (Phospha 250 Neutral) 500 mg THREE TIMES A DAY ORAL 05/05/18 18:00 05/20/18 17:59 05/16/18 09:08 Polyethylene Glycol (Miralax) 17 gm DAILYPRN PRN ORAL Constipation 05/07/18 16:00 06/06/18 15:59 05/07/18 17:35 Quetiapine Fumarate (SEROquel) 150 mg EVERY 8 HOURS ORAL 05/05/18 22:00 05/21/18 05:59 05/16/18 05:20 Tamsulosin HCl (Flomax) 0.4 mg BEDTIME ORAL 05/05/18 21:00 05/16/18 20:59 05/15/18 21:18 Jozef Greene MD May 16, 2018 09:31
--- NOTE | 2018-05-16 11:07 | Cardiac Electrophysiology PN ---
Assessment/Plan Assessment/Plan 1. Sinus tachycardia due to anxiety and infection. No Fib.HR better 2. Hypertension, refusing BP meds. 3. Schizophrenia. 4. Right facial basal cell carcinoma, status post surgery 5. Dysphagia, resolved 6. Non compliant DW RN Subjective Subjective No events. Comfortable in NAD Objective Last 24 Hour Vital Signs Date Time Temp Pulse Resp B/P (MAP) Pulse Ox O2 Delivery O2 Flow Rate FiO2 05/16/18 09:00 Room Air 05/16/18 08:00 97.9 69 20 131/69 (89) 96 05/16/18 04:00 97.1 66 18 111/64 (80) 98 05/15/18 21:00 Room Air 05/15/18 16:00 97.5 61 19 114/67 (83) 94 05/15/18 12:00 97.5 59 18 121/73 (89) 96 Intake and Output 05/15/18 05/16/18 19:00 07:00 Intake Total 720 ml 450 ml Balance 720 ml 450 ml Intake Oral 720 ml 450 ml # Voids 3 6 # Bowel Movements 1 Objective HEAD AND NECK: No JVD. The right side of his face scarred Right eye blind LUNGS: Clear CARDIOVASCULAR: RRR. No GRM ABDOMEN: Soft EXTREMITIES: No edema. Teto Branch MD May 16, 2018 11:07
--- NOTE | 2018-05-16 13:09 | NUR ---
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 97.1 HR 66 RR 18 B/P 111/64 RA 98% IS: SEROQUEL PO ZYPREXA PO PLACEMENT PENDING MED/SURG STATUS
--- NOTE | 2018-05-16 13:30 | General Progress Note ---
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 SNOMED: 28181090 (2) Basal cell carcinoma ICD Codes: C44.91 - Basal cell carcinoma of skin, unspecified SNOMED: 292928945 (3) Generalized weakness ICD Codes: R53.1 - Weakness SNOMED: 75510382 (4) Cellulitis and abscess of face ICD Codes: L03.211 - Cellulitis of face; L02.01 - Cutaneous abscess of face SNOMED: 511311811 (5) Severe malnutrition ICD Codes: E43 - Unspecified severe protein-calorie malnutrition SNOMED: 81000912 (6) Failure to thrive in adult ICD Codes: R62.7 - Adult failure to thrive SNOMED: 956447144 (7) HTN (hypertension) ICD Codes: I10 - Essential (primary) hypertension SNOMED: 33597497 (8) UTI (urinary tract infection) ICD Codes: N39.0 - Urinary tract infection, site not specified SNOMED: 97213661 Status: unchanged Assessment/Plan pt diet abx prn cbc bmp am dc if clear Subjective Constitutional: Reports: weakness Allergies: Coded Allergies: BENZTROPINE (Unverified Allergy, Unknown, 02/22/14) HALOPERIDOL (Unverified Allergy, Unknown, 02/22/14) PENICILLINS (Unverified Allergy, Unknown, 04/14/18) tolerated Ceftriaxone 06/2017 All Systems: reviewed and negative except above Subjective sleepy calm Objective Last 24 Hour Vital Signs Date Time Temp Pulse Resp B/P (MAP) Pulse Ox O2 Delivery O2 Flow Rate FiO2 05/16/18 09:00 Room Air 05/16/18 08:00 97.9 69 20 131/69 (89) 96 05/16/18 04:00 97.1 66 18 111/64 (80) 98 05/15/18 21:00 Room Air 05/15/18 16:00 97.5 61 19 114/67 (83) 94 Intake and Output 05/15/18 05/16/18 19:00 07:00 Intake Total 720 ml 450 ml Balance 720 ml 450 ml Intake Oral 720 ml 450 ml # Voids 3 6 # Bowel Movements 1 Height (Feet): 5 Height (Inches): 10.00 Weight (Pounds): 164 General Appearance: lethargic EENT: normal ENT inspection Neck: normal alignment Cardiovascular: normal peripheral pulses, normal rate, regular rhythm Respiratory/Chest: chest wall non-tender, lungs clear, normal breath sounds Abdomen: normal bowel sounds, non tender, soft Extremities: normal inspection Edema: no edema noted Arm (L), no edema noted Arm (R), no edema noted Leg (L), no edema noted Leg (R), no edema noted Pedal (L), no edema noted Pedal (R), no edema noted Generalized Neurologic: motor weakness Skin: normal pigmentation, warm/dry Julio Higgins DO May 16, 2018 13:30
--- NOTE | 2018-05-16 13:44 | GI Progress Note ---
Assessment/Plan Problems: (1) Failure to thrive in adult ICD Codes: R62.7 - Adult failure to thrive SNOMED: 556066410 (2) Severe malnutrition ICD Codes: E43 - Unspecified severe protein-calorie malnutrition SNOMED: 64170525 (3) Schizophreniform psychosis ICD Codes: F20.9 - Schizophreniform psychosis SNOMED: 84278725 (4) Cellulitis and abscess of face ICD Codes: L03.211 - Cellulitis of face; L02.01 - Cutaneous abscess of face SNOMED: 187381830 (5) Constipation ICD Codes: K59.00 - Constipation, unspecified SNOMED: 25506274 Status: stable, unchanged Status Narrative Discussed with Dr. Ferguson Assessment/Plan psych f/u defer PEG, the patient has shown improvement in caloric intake and shows no signs of dysphagia or risk for aspiration. Patient on regular diet push p.o. One-to-one feeder IV/p.o. hydration Antibiotics PPI Bowel regimen, refused Senokot Follow-up labs The patient was seen and examined at bedside and all new and available data was reviewed in the patients chart. I agree with the above findings, impression and plan. (Patient seen earlier today. Signature stamp does not reflect patient encounter time.). - Juliocesar Ferguson MD Subjective Subjective Limited Objective Last 24 Hour Vital Signs Date Time Temp Pulse Resp B/P (MAP) Pulse Ox O2 Delivery O2 Flow Rate FiO2 05/16/18 09:00 Room Air 05/16/18 08:00 97.9 69 20 131/69 (89) 96 05/16/18 04:00 97.1 66 18 111/64 (80) 98 05/15/18 21:00 Room Air 05/15/18 16:00 97.5 61 19 114/67 (83) 94 Intake and Output 05/15/18 05/16/18 19:00 07:00 Intake Total 720 ml 450 ml Balance 720 ml 450 ml Intake Oral 720 ml 450 ml # Voids 3 6 # Bowel Movements 1 Height (Feet): 5 Height (Inches): 10.00 Weight (Pounds): 164 General Appearance: no apparent distress, alert Cardiovascular: normal rate Respiratory/Chest: normal breath sounds, no respiratory distress Abdominal Exam: normal bowel sounds, non tender, soft Extremities: non-tender Objective Legally blind Roxanna Saavedra NP May 16, 2018 13:44
--- NOTE | 2018-05-16 14:20 | Pulmonology Progress Note ---
Assessment/Plan Problems: (1) Failure to thrive in adult (2) UTI (urinary tract infection) (3) HTN (hypertension) (4) Severe malnutrition (5) Generalized weakness (6) Constipation Assessment/Plan doing fairly no new complains all meds and notes reviewed d/w nurse. dc planning Subjective ROS Limited/Unobtainable: No Constitutional: Reports: no symptoms HEENT: Repors: no symptoms Respiratory: Reports: no symptoms Allergies: Coded Allergies: BENZTROPINE (Unverified Allergy, Unknown, 02/22/14) HALOPERIDOL (Unverified Allergy, Unknown, 02/22/14) PENICILLINS (Unverified Allergy, Unknown, 04/14/18) tolerated Ceftriaxone 06/2017 Objective Last 24 Hour Vital Signs Date Time Temp Pulse Resp B/P (MAP) Pulse Ox O2 Delivery O2 Flow Rate FiO2 05/16/18 09:00 Room Air 05/16/18 08:00 97.9 69 20 131/69 (89) 96 05/16/18 04:00 97.1 66 18 111/64 (80) 98 05/15/18 21:00 Room Air 05/15/18 16:00 97.5 61 19 114/67 (83) 94 Intake and Output 05/15/18 05/16/18 19:00 07:00 Intake Total 720 ml 450 ml Balance 720 ml 450 ml Intake Oral 720 ml 450 ml # Voids 3 6 # Bowel Movements 1 Objective General Appearance: WD/WN HEENT: normocephalic, right eye patch Respiratory/Chest: chest wall non-tender, lungs clear Breasts: no masses Cardiovascular: normal peripheral pulses, normal rate Abdomen: normal bowel sounds, soft, non tender Extremities: no cyanosis Skin: no rash 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 Lymphatic: no neck adenopathy Current Medications Medications (Trade) Dose Ordered Sig/Jordi Route PRN Reason Start Time Stop Time Status Last Admin Dose Admin Acetaminophen/ Hydrocodone Bitart ([place] 5/325) 1 tab Q4H PRN ORAL Moderate Pain (Pain Scale 4-6) 05/10/18 12:50 05/17/18 12:49 Docusate Sodium (Colace) 100 mg TWICE A DAY ORAL 05/07/18 18:00 06/06/18 17:59 05/16/18 09:07 Famotidine (Pepcid) 20 mg BID ORAL 05/05/18 18:00 05/18/18 17:59 05/16/18 09:07 Lorazepam (Ativan) 1 mg Q6H PRN ORAL ANXIETY 05/13/18 12:45 05/20/18 12:44 05/15/18 09:26 Olanzapine (ZyPREXA) 10 mg TID ORAL 05/05/18 18:00 05/25/18 17:59 05/16/18 13:17 Phosphorus (Phospha 250 Neutral) 500 mg THREE TIMES A DAY ORAL 05/05/18 18:00 05/20/18 17:59 05/16/18 13:17 Polyethylene Glycol (Miralax) 17 gm DAILYPRN PRN ORAL Constipation 05/07/18 16:00 06/06/18 15:59 05/07/18 17:35 Quetiapine Fumarate (SEROquel) 150 mg EVERY 8 HOURS ORAL 05/05/18 22:00 05/21/18 05:59 05/16/18 13:17 Tamsulosin HCl (Flomax) 0.4 mg BEDTIME ORAL 05/05/18 21:00 05/16/18 20:59 05/15/18 21:18 Waleska Thornton MD May 16, 2018 14:19
[2018-05-16 16:00] VITALS: BP 110/66
--- NOTE | 2018-05-16 17:07 | Nephrology Progress Note ---
Assessment/Plan Problem List: (1) HTN (hypertension) (2) Failure to thrive in adult (3) Cellulitis and abscess of face (4) Schizophreniform psychosis Assessment WBC now wnl (1) Dysphasia (2) Encounter for PEG (percutaneous endoscopic gastrostomy) (3) Schizophrenia (4) Failure to thrive in adult (5) Generalized weakness (6) Severe malnutrition (7) Dehydration (8) Schizophrenia (9) HTN (10) Legally Blind Plan Flomax Psych mangement per consultants ? DC planning Subjective ROS Limited/Unobtainable: No Objective Objective Last 24 Hour Vital Signs Date Time Temp Pulse Resp B/P (MAP) Pulse Ox O2 Delivery O2 Flow Rate FiO2 05/16/18 16:00 97.7 67 19 110/66 (81) 96 05/16/18 09:00 Room Air 05/16/18 08:00 97.9 69 20 131/69 (89) 96 05/16/18 04:00 97.1 66 18 111/64 (80) 98 05/15/18 21:00 Room Air Intake and Output 05/15/18 05/16/18 19:00 07:00 Intake Total 720 ml 450 ml Balance 720 ml 450 ml Intake Oral 720 ml 450 ml # Voids 3 6 # Bowel Movements 1 Height (Feet): 5 Height (Inches): 10.00 Weight (Pounds): 164 General Appearance: no apparent distress Objective no change Al Roper MD May 16, 2018 17:07
--- NOTE | 2018-05-16 19:26 | NUR ---
HAND-OFF: Report given to ANISH Finch.
--- NOTE | 2018-05-16 19:29 | General Progress Note ---
Assessment/Plan Assessment/Plan # Leukocytosis. Secondary to underlying infection, sepsis of R eye/hx malignancy that side --> Monitor and trend wbc for improvement -->16.6-->23.0-->31.5-->9.2-->11.2-->22.9-->10-->15 --> Peripheral smear has been reviewed, no blasts noted --> Medications have been reviewed --> Imaging has been reviewed --> cont on abx, empiric treatment --> per ID management # Carcinoma resection of from right side of face/eye --> as per outpatient onc # Anemia of chronic disease --> anemia panel has been reviewed --> trend hgb 12.8-->10.2-->10 # FTT --> refusing care --> defer peg tube given improvement in po intake --> calorie counts and weights weekly --> mirtazpine as needed # Sepsis. improved # H/O superinfected necrotic mass and possible micro abscess s/p Tx 06/2017 # Wound. # COPD. # Dysphasia # Schizophrenia # HTN. # Legally blind Time and date note entered in EMR does not reflect time and date of encounter. GREATLY APPRECIATE CONSULTATION. Subjective Constitutional: Denies: no symptoms, chills, diaphoresis, fever, malaise, weakness, other HEENT: Denies: no symptoms, eye pain, blurred vision, tearing, double vision, ear pain, ear discharge, nose pain, nose congestion, throat pain, throat swelling, mouth pain, mouth swelling, other Cardiovascular: Denies: no symptoms, chest pain, edema, irregular heart rate, lightheadedness, palpitations, syncope, other Respiratory: Denies: no symptoms, cough, orthopnea, shortness of breath, SOB with excertion, SOB at rest, sputum, stridor, wheezing, other Gastrointestinal/Abdominal: Denies: no symptoms, abdomen distended, abdominal pain, black stools, tarry stools, blood in stool, constipated, diarrhea, difficulty swallowing, nausea, poor appetite, poor fluid intake, rectal bleeding , vomiting, other Genitourinary: Denies: no symptoms, burning, discharge, frequency, flank pain, hematuria, incontinence, pain, urgency, other Neurologic/Psychiatric: Denies: no symptoms, anxiety, depressed, emotional problems, headache, numbness, paresthesia, pre-existing deficit, seizure, tingling, tremors, weakness, other Endocrine: Denies: no symptoms, excessive sweating, flushing, intolerance to cold, intolerance to heat, increased hunger, increased thirst, increased urine, unexplained weight gain, unexplained weight loss, other Hematologic/Lymphatic: Denies: no symptoms, anemia, easy bleeding, easy bruising, other Allergies: Coded Allergies: BENZTROPINE (Unverified Allergy, Unknown, 02/22/14) HALOPERIDOL (Unverified Allergy, Unknown, 02/22/14) PENICILLINS (Unverified Allergy, Unknown, 04/14/18) tolerated Ceftriaxone 06/2017 Subjective 04/15: Pt awake and agitated. No acute events. Pt refusing meds. 04/16: wbc severely elevated, seen by Id, on broad spectrum antifungals, foul language, very aggressive 04/18: no events, mumbling, minimally conversive, no fevers, down on ivf 04/19: pt is awake and resting in bed. refusing care, aggressive, no events 04/20: Pt is awake and alert, refusing care, minimally conversive, on abx, wbc have improved. 04/21: Pt is awake and resting in bed, aggressive, mumbling, 04/22: Pt is resting in bed. PEG has been defered, the patient has shown improvement in caloric intake and shows no signs of dysphagia or risk for aspiration. 04/23: Pt is seen in the room, resting in bed, refusing care, on abx, pending labs /: No events, has been agitated overnight, refusing care 04/25: Pt is awake and resting in bed, refusing labs, agitated, screaming, refusing care 04/26: no major events, no fevers or chills, no chest pain or sob 04/27: pt is seen by bedside, awake and comfortable, wbc is at 22.9 today. 04/28: peg has been deferred, gi recs reviewed, no events, slightly agitated 04/29: no events, refusing care, no change other, remains aggressive, says "don' t touch me" 04/30: continues to cuss out, rn by bedside with conservator and able to chnage wound on eye R 05/01: Pt is awake and calm, alert oriented x1, remains afebrile off abx and leukocytosis resolved 05/02: Pt is seen by bedside, awake and calm, no events. pending labs 05/03: Pt is alert and oriented x1, remains afebrile off abx and leukocytosis resolved 05/04: accepted at [place] as early as today 05/05: pt came back from [place] facility. They were unable to accept the pt due to pt's agitation worsenin 05/09: Pt is awake, seen by bedside, pending placement, no events 05/10: no fevers noted, no chills, getting abx, but refuisng blood draws 05/11: seen by bedside, awake and comfortable, no overnight events, refusing blood draws 05/12: Pt is awake, confused, refusing labs, no events reported 05/13: seen by bedside, awake, comfortable, no events, refusing meds. placement pending 05/15: pt is awake, no fevers or chills, no events, placement pending. 05/16: Pt is seen by bedside, awake, comfortable, denies acute distress, wbc 15 Objective Last 24 Hour Vital Signs Date Time Temp Pulse Resp B/P (MAP) Pulse Ox O2 Delivery O2 Flow Rate FiO2 05/16/18 16:00 97.7 67 19 110/66 (81) 96 05/16/18 09:00 Room Air 05/16/18 08:00 97.9 69 20 131/69 (89) 96 05/16/18 04:00 97.1 66 18 111/64 (80) 98 05/15/18 21:00 Room Air Intake and Output 05/15/18 05/16/18 18:59 06:59 Intake Total 720 ml 450 ml Balance 720 ml 450 ml Intake Oral 720 ml 450 ml # Voids 3 6 # Bowel Movements 1 Height (Feet): 5 Height (Inches): 10.00 Weight (Pounds): 164 Objective Vitals: Have been reviewed General Appearance: alert, agitated Head: normocephalic, atraumatic Eyes: right eye abnormal pupil - right eye has patch which covers the right temporal area of face as well from cancer ressection; left eye other - visible cataract, glassy/hazy appearance, unchanged ENT: hearing grossly normal, other Neck: full range of motion Respiratory: chest non-tender, lungs clear Cardiovascular no edema, tachycardia Gastrointestinal: normal bs, non tender, soft MSK: back normal, non-tender, bilateral hand contractures Skin: normal color, no rash, warm/dry Jr Daly MD May 16, 2018 19:28
--- NOTE | 2018-05-16 19:30 | NUR ---
NURSE NOTES: Patient asleep in bed, calm, not in respiratory distress and no signs of pain. Call light and needs in reach. Bed in lowest position, lock engaged and alarm on. Will continue to monitor.
[2018-05-16 20:00] VITALS: BP 107/66
[2018-05-17] VITALS: BP 110/68
[2018-05-17 04:00] VITALS: BP 119/58
--- NOTE | 2018-05-17 05:51 | NUR ---
NURSE NOTES: Patient refused AM labs per Jackelyn from lab. Will try again later.
--- NOTE | 2018-05-17 07:06 | NUR ---
HAND-OFF: Report given to ANISH Powell.
--- NOTE | 2018-05-17 07:20 | NUR ---
NURSE NOTES: Patient alert x2, confused; on room air, no sign of distress and shortness of breath; no sign of chest pain. No IV access MD aware. Dressing in place on right eye. Bed at lowest position, side rails up x2, breaks engaged, bed alarm on. Will keep monitoring.
[2018-05-17 08:00] VITALS: BP 123/67
[2018-05-17] MEDS: OLANZapine 10mg tab ORAL SCH ×3 (08:36→17:28)
[2018-05-17] MEDS: Docusate 100mg cap ORAL SCH ×2 (08:37→17:28)
[2018-05-17] MEDS: Phospha 250 Neutral tab ORAL SCH ×3 (08:37→17:28)
[2018-05-17 12:00] VITALS: BP 105/68
--- NOTE | 2018-05-17 12:46 | NUR ---
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 98.9 HR 70 RR 18 B/P 105/68 IS: COLACE PO SEROQUEL PO PEPCID PO ZYPREXA PO PHOSLO PO PLACEMENT PENDING MED/SURG STATUS
--- NOTE | 2018-05-17 12:55 | General Progress Note ---
Assessment/Plan Assessment/Plan # Leukocytosis. Secondary to underlying infection, sepsis of R eye/hx malignancy that side --> Monitor and trend wbc for improvement -->16.6-->23.0-->31.5-->9.2-->11.2-->22.9-->10-->15 --> Peripheral smear has been reviewed, no blasts noted --> Medications have been reviewed --> Imaging has been reviewed --> cont on abx, empiric treatment --> per ID management # Carcinoma resection of from right side of face/eye --> as per outpatient onc # Anemia of chronic disease --> anemia panel has been reviewed --> trend hgb 12.8-->10.2-->10 # FTT --> refusing care --> defer peg tube given improvement in po intake --> calorie counts and weights weekly --> mirtazpine as needed # Sepsis. improved # H/O superinfected necrotic mass and possible micro abscess s/p Tx 06/2017 # Wound. # COPD. # Dysphasia # Schizophrenia # HTN. # Legally blind Time and date note entered in EMR does not reflect time and date of encounter. GREATLY APPRECIATE CONSULTATION. Subjective Constitutional: Denies: no symptoms, chills, diaphoresis, fever, malaise, weakness, other HEENT: Denies: no symptoms, eye pain, blurred vision, tearing, double vision, ear pain, ear discharge, nose pain, nose congestion, throat pain, throat swelling, mouth pain, mouth swelling, other Cardiovascular: Denies: no symptoms, chest pain, edema, irregular heart rate, lightheadedness, palpitations, syncope, other Respiratory: Denies: no symptoms, cough, orthopnea, shortness of breath, SOB with excertion, SOB at rest, sputum, stridor, wheezing, other Gastrointestinal/Abdominal: Denies: no symptoms, abdomen distended, abdominal pain, black stools, tarry stools, blood in stool, constipated, diarrhea, difficulty swallowing, nausea, poor appetite, poor fluid intake, rectal bleeding , vomiting, other Genitourinary: Denies: no symptoms, burning, discharge, frequency, flank pain, hematuria, incontinence, pain, urgency, other Neurologic/Psychiatric: Denies: no symptoms, anxiety, depressed, emotional problems, headache, numbness, paresthesia, pre-existing deficit, seizure, tingling, tremors, weakness, other Endocrine: Denies: no symptoms, excessive sweating, flushing, intolerance to cold, intolerance to heat, increased hunger, increased thirst, increased urine, unexplained weight gain, unexplained weight loss, other Hematologic/Lymphatic: Denies: no symptoms, anemia, easy bleeding, easy bruising, other Allergies: Coded Allergies: BENZTROPINE (Unverified Allergy, Unknown, 02/22/14) HALOPERIDOL (Unverified Allergy, Unknown, 02/22/14) PENICILLINS (Unverified Allergy, Unknown, 04/14/18) tolerated Ceftriaxone 06/2017 Subjective 04/15: Pt awake and agitated. No acute events. Pt refusing meds. 04/16: wbc severely elevated, seen by Id, on broad spectrum antifungals, foul language, very aggressive 04/18: no events, mumbling, minimally conversive, no fevers, down on ivf 04/19: pt is awake and resting in bed. refusing care, aggressive, no events 04/20: Pt is awake and alert, refusing care, minimally conversive, on abx, wbc have improved. 04/21: Pt is awake and resting in bed, aggressive, mumbling, 04/22: Pt is resting in bed. PEG has been defered, the patient has shown improvement in caloric intake and shows no signs of dysphagia or risk for aspiration. 04/23: Pt is seen in the room, resting in bed, refusing care, on abx, pending labs /: No events, has been agitated overnight, refusing care 04/25: Pt is awake and resting in bed, refusing labs, agitated, screaming, refusing care 04/26: no major events, no fevers or chills, no chest pain or sob 04/27: pt is seen by bedside, awake and comfortable, wbc is at 22.9 today. 04/28: peg has been deferred, gi recs reviewed, no events, slightly agitated 04/29: no events, refusing care, no change other, remains aggressive, says "don' t touch me" 04/30: continues to cuss out, rn by bedside with conservator and able to chnage wound on eye R 05/01: Pt is awake and calm, alert oriented x1, remains afebrile off abx and leukocytosis resolved 05/02: Pt is seen by bedside, awake and calm, no events. pending labs 05/03: Pt is alert and oriented x1, remains afebrile off abx and leukocytosis resolved 05/04: accepted at [place] as early as today 05/05: pt came back from [place] facility. They were unable to accept the pt due to pt's agitation worsenin 05/09: Pt is awake, seen by bedside, pending placement, no events 05/10: no fevers noted, no chills, getting abx, but refuisng blood draws 05/11: seen by bedside, awake and comfortable, no overnight events, refusing blood draws 05/12: Pt is awake, confused, refusing labs, no events reported 05/13: seen by bedside, awake, comfortable, no events, refusing meds. placement pending 05/15: pt is awake, no fevers or chills, no events, placement pending. 05/16: Pt is seen by bedside, awake, comfortable, denies acute distress, wbc 15 05/17: Pt is comfortable and resting in bed, confused, wbc 15 Objective Last 24 Hour Vital Signs Date Time Temp Pulse Resp B/P (MAP) Pulse Ox O2 Delivery O2 Flow Rate FiO2 05/17/18 12:00 98.9 70 18 105/68 (80) 95 05/17/18 09:00 Room Air 05/17/18 08:00 98.1 66 19 123/67 (85) 96 05/17/18 04:00 98.6 66 18 119/58 (78) 98 05/17/18 00:00 98.0 68 18 110/68 (82) 98 05/16/18 21:00 Room Air 05/16/18 20:00 98.2 65 18 107/66 (80) 96 05/16/18 16:00 97.7 67 19 110/66 (81) 96 Intake and Output 05/16/18 05/17/18 19:00 07:00 Intake Total 1300 ml Balance 1300 ml Intake Oral 1300 ml # Voids 3 1 # Bowel Movements 1 Height (Feet): 5 Height (Inches): 10.00 Weight (Pounds): 162 Objective Vitals: Have been reviewed General Appearance: alert, agitated Head: normocephalic, atraumatic Eyes: right eye abnormal pupil - right eye has patch which covers the right temporal area of face as well from cancer ressection; left eye other - visible cataract, glassy/hazy appearance, unchanged ENT: hearing grossly normal, other Neck: full range of motion Respiratory: chest non-tender, lungs clear Cardiovascular no edema, tachycardia Gastrointestinal: normal bs, non tender, soft MSK: back normal, non-tender, bilateral hand contractures Skin: normal color, no rash, warm/dry Jr Daly MD May 17, 2018 12:55
--- NOTE | 2018-05-17 13:28 | General Progress Note ---
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 SNOMED: 84221115 (2) Basal cell carcinoma ICD Codes: C44.91 - Basal cell carcinoma of skin, unspecified SNOMED: 106301017 (3) Generalized weakness ICD Codes: R53.1 - Weakness SNOMED: 31894499 (4) Cellulitis and abscess of face ICD Codes: L03.211 - Cellulitis of face; L02.01 - Cutaneous abscess of face SNOMED: 823262830 (5) Severe malnutrition ICD Codes: E43 - Unspecified severe protein-calorie malnutrition SNOMED: 57556898 (6) Failure to thrive in adult ICD Codes: R62.7 - Adult failure to thrive SNOMED: 270504699 (7) HTN (hypertension) ICD Codes: I10 - Essential (primary) hypertension SNOMED: 08469821 (8) UTI (urinary tract infection) ICD Codes: N39.0 - Urinary tract infection, site not specified SNOMED: 34025300 Status: unchanged Assessment/Plan pt diet abx prn cbc bmp am dc if clear Subjective Allergies: Coded Allergies: BENZTROPINE (Unverified Allergy, Unknown, 02/22/14) HALOPERIDOL (Unverified Allergy, Unknown, 02/22/14) PENICILLINS (Unverified Allergy, Unknown, 04/14/18) tolerated Ceftriaxone 06/2017 All Systems: reviewed and negative except above Subjective sleepy calm Objective Last 24 Hour Vital Signs Date Time Temp Pulse Resp B/P (MAP) Pulse Ox O2 Delivery O2 Flow Rate FiO2 05/17/18 12:00 98.9 70 18 105/68 (80) 95 05/17/18 09:00 Room Air 05/17/18 08:00 98.1 66 19 123/67 (85) 96 05/17/18 04:00 98.6 66 18 119/58 (78) 98 05/17/18 00:00 98.0 68 18 110/68 (82) 98 05/16/18 21:00 Room Air 05/16/18 20:00 98.2 65 18 107/66 (80) 96 05/16/18 16:00 97.7 67 19 110/66 (81) 96 Intake and Output 05/16/18 05/17/18 19:00 07:00 Intake Total 1300 ml Balance 1300 ml Intake Oral 1300 ml # Voids 3 1 # Bowel Movements 1 Height (Feet): 5 Height (Inches): 10.00 Weight (Pounds): 162 General Appearance: lethargic EENT: normal ENT inspection Neck: normal alignment Cardiovascular: normal peripheral pulses, normal rate, regular rhythm Respiratory/Chest: chest wall non-tender, lungs clear, normal breath sounds Abdomen: normal bowel sounds, non tender, soft Extremities: normal inspection Edema: no edema noted Arm (L), no edema noted Arm (R), no edema noted Leg (L), no edema noted Leg (R), no edema noted Pedal (L), no edema noted Pedal (R), no edema noted Generalized Neurologic: motor weakness Skin: normal pigmentation, warm/dry Julio Higgins DO May 17, 2018 13:28
--- NOTE | 2018-05-17 14:38 | GI Progress Note ---
Assessment/Plan Problems: (1) Failure to thrive in adult ICD Codes: R62.7 - Adult failure to thrive SNOMED: 147223805 (2) Severe malnutrition ICD Codes: E43 - Unspecified severe protein-calorie malnutrition SNOMED: 45751883 (3) Schizophreniform psychosis ICD Codes: F20.9 - Schizophreniform psychosis SNOMED: 43189495 (4) Cellulitis and abscess of face ICD Codes: L03.211 - Cellulitis of face; L02.01 - Cutaneous abscess of face SNOMED: 221748476 (5) Constipation ICD Codes: K59.00 - Constipation, unspecified SNOMED: 65444408 Status: stable Status Narrative Discussed with Dr. Ferguson. Assessment/Plan psych f/u defer PEG, the patient has shown improvement in caloric intake and shows no signs of dysphagia or risk for aspiration. Patient on regular diet push p.o. One-to-one feeder IV/p.o. hydration Antibiotics PPI Bowel regimen, refused Senokot Follow-up labs The patient was seen and examined at bedside and all new and available data was reviewed in the patients chart. I agree with the above findings, impression and plan. (Patient seen earlier today. Signature stamp does not reflect patient encounter time.). - Juliocesar Ferguson MD Subjective Subjective Limited Objective Last 24 Hour Vital Signs Date Time Temp Pulse Resp B/P (MAP) Pulse Ox O2 Delivery O2 Flow Rate FiO2 05/17/18 12:00 98.9 70 18 105/68 (80) 95 05/17/18 09:00 Room Air 05/17/18 08:00 98.1 66 19 123/67 (85) 96 05/17/18 04:00 98.6 66 18 119/58 (78) 98 05/17/18 00:00 98.0 68 18 110/68 (82) 98 05/16/18 21:00 Room Air 05/16/18 20:00 98.2 65 18 107/66 (80) 96 05/16/18 16:00 97.7 67 19 110/66 (81) 96 Intake and Output 05/16/18 05/17/18 19:00 07:00 Intake Total 1300 ml Balance 1300 ml Intake Oral 1300 ml # Voids 3 1 # Bowel Movements 1 Height (Feet): 5 Height (Inches): 10.00 Weight (Pounds): 162 General Appearance: no apparent distress Cardiovascular: normal rate Respiratory/Chest: normal breath sounds, no respiratory distress Abdominal Exam: normal bowel sounds, non tender, soft Extremities: non-tender Objective Legally blind Roxanna Saavedra NP May 17, 2018 14:38
--- NOTE | 2018-05-17 14:51 | Infectious Diseases Prog Note ---
Assessment/Plan Assessment/Plan Sepsis- ?source- r/o UTI, PNA- now resolved Afebrile Leukocytosis Increased 04/27/18 , recurrent- r/o Cdiff, RACHNA -CXR 05/09 :Hypoventilatory exam. No definite acute process -CXR 04/28: No acute findings Unclear source no sign of active infection resection of carcinoma from right side of face/eye Wnd Cx : GPC -hx of superinfected necrotic mass and possible micro abscess s/p Tx 06/2017 -wound cx MRSA, diphterouids, ESBL Proteus 04/14/19 Wound Cx Providencia and MRSA FTT COPD dysphasia schizophrenia HTN MDD legally blind hx of VRE/MRSA colonization Plan: - Monitor off abx - 04/24/18 SP PO Bactrim DS BID - 04/20/18 SP empiric Azactam , Flagyl and IV Vanco d# 6/10 - 04/15/18 SP Ceftriaxone d# 2 -f/u u/a w/ reflex, Bcx x2 (rfused Bcx) -Cdiff if diarrhea -Monitor CBC/CMP, temperatures -CBC, CMP, amylase, lipase am (refused labs) Subjective Allergies: Coded Allergies: BENZTROPINE (Unverified Allergy, Unknown, 02/22/14) HALOPERIDOL (Unverified Allergy, Unknown, 02/22/14) PENICILLINS (Unverified Allergy, Unknown, 04/14/18) tolerated Ceftriaxone 06/2017 Subjective Patient intermittently refusing labs and meds Afebrile Objective Vital Signs Last 24 Hour Vital Signs Date Time Temp Pulse Resp B/P (MAP) Pulse Ox O2 Delivery O2 Flow Rate FiO2 05/17/18 12:00 98.9 70 18 105/68 (80) 95 05/17/18 09:00 Room Air 05/17/18 08:00 98.1 66 19 123/67 (85) 96 05/17/18 04:00 98.6 66 18 119/58 (78) 98 05/17/18 00:00 98.0 68 18 110/68 (82) 98 05/16/18 21:00 Room Air 05/16/18 20:00 98.2 65 18 107/66 (80) 96 05/16/18 16:00 97.7 67 19 110/66 (81) 96 Height (Feet): 5 Height (Inches): 10.00 Weight (Pounds): 162 Objective General: NAD HEENT: NCAT, Right eye wound covered with bandage, left eye - visible cataract , glassy/hazy appearance Respiratory: CATB, No W/C Cardiovascular no edema, tachycardia Gastrointestinal: normal bowel sounds, non tender, soft Current Medications Medications (Trade) Dose Ordered Sig/Jordi Route PRN Reason Start Time Stop Time Status Last Admin Dose Admin Docusate Sodium (Colace) 100 mg TWICE A DAY ORAL 05/07/18 18:00 06/06/18 17:59 05/17/18 08:37 Famotidine (Pepcid) 20 mg BID ORAL 05/05/18 18:00 05/18/18 17:59 05/17/18 08:37 Lorazepam (Ativan) 1 mg Q6H PRN ORAL ANXIETY 05/13/18 12:45 05/20/18 12:44 05/15/18 09:26 Olanzapine (ZyPREXA) 10 mg TID ORAL 05/05/18 18:00 05/25/18 17:59 05/17/18 13:08 Phosphorus (Phospha 250 Neutral) 500 mg THREE TIMES A DAY ORAL 05/05/18 18:00 05/20/18 17:59 05/17/18 13:08 Polyethylene Glycol (Miralax) 17 gm DAILYPRN PRN ORAL Constipation 05/07/18 16:00 06/06/18 15:59 05/07/18 17:35 Quetiapine Fumarate (SEROquel) 150 mg EVERY 8 HOURS ORAL 05/05/18 22:00 05/21/18 05:59 05/17/18 13:09 Jozef Greene MD May 17, 2018 14:51
[2018-05-17 16:00] VITALS: BP 109/70
--- NOTE | 2018-05-17 16:55 | Nephrology Progress Note ---
Assessment/Plan Problem List: (1) HTN (hypertension) (2) Failure to thrive in adult (3) Cellulitis and abscess of face (4) Schizophreniform psychosis Assessment WBC now wnl (1) Dysphasia (2) Encounter for PEG (percutaneous endoscopic gastrostomy) (3) Schizophrenia (4) Failure to thrive in adult (5) Generalized weakness (6) Severe malnutrition (7) Dehydration (8) Schizophrenia (9) HTN (10) Legally Blind Plan Flomax Psych mangement per consultants ? DC planning Subjective ROS Limited/Unobtainable: No Constitutional: Reports: malaise Objective Objective Last 24 Hour Vital Signs Date Time Temp Pulse Resp B/P (MAP) Pulse Ox O2 Delivery O2 Flow Rate FiO2 05/17/18 16:00 98.6 67 18 109/70 (83) 96 05/17/18 12:00 98.9 70 18 105/68 (80) 95 05/17/18 09:00 Room Air 05/17/18 08:00 98.1 66 19 123/67 (85) 96 05/17/18 04:00 98.6 66 18 119/58 (78) 98 05/17/18 00:00 98.0 68 18 110/68 (82) 98 05/16/18 21:00 Room Air 05/16/18 20:00 98.2 65 18 107/66 (80) 96 Intake and Output 05/16/18 05/17/18 19:00 07:00 Intake Total 1300 ml Balance 1300 ml Intake Oral 1300 ml # Voids 3 1 # Bowel Movements 1 Height (Feet): 5 Height (Inches): 10.00 Weight (Pounds): 162 General Appearance: no apparent distress Objective no change Al Roper MD May 17, 2018 16:55
--- NOTE | 2018-05-17 17:21 | Cardiac Electrophysiology PN ---
Assessment/Plan Assessment/Plan 1. Sinus tachycardia due to anxiety and infection. HR better 2. Hypertension, refusing BP meds. 3. Schizophrenia. 4. Right facial basal cell carcinoma, status post surgery 5. Dysphagia, resolved 6. Non compliant DW RN Subjective Subjective Comfortable in NAD awaiting placement. Objective Last 24 Hour Vital Signs Date Time Temp Pulse Resp B/P (MAP) Pulse Ox O2 Delivery O2 Flow Rate FiO2 05/17/18 16:00 98.6 67 18 109/70 (83) 96 05/17/18 12:00 98.9 70 18 105/68 (80) 95 05/17/18 09:00 Room Air 05/17/18 08:00 98.1 66 19 123/67 (85) 96 05/17/18 04:00 98.6 66 18 119/58 (78) 98 05/17/18 00:00 98.0 68 18 110/68 (82) 98 05/16/18 21:00 Room Air 05/16/18 20:00 98.2 65 18 107/66 (80) 96 Intake and Output 05/16/18 05/17/18 19:00 07:00 Intake Total 1300 ml Balance 1300 ml Intake Oral 1300 ml # Voids 3 1 # Bowel Movements 1 Objective HEAD AND NECK: No JVD. The right side of his face scarred Right eye blind LUNGS: Clear CARDIOVASCULAR: Nl S1 and S2. RRR. No GRM ABDOMEN: Soft EXTREMITIES: No edema. Teto Branch MD May 17, 2018 17:21
--- NOTE | 2018-05-17 19:14 | NUR ---
HAND-OFF: Report given to FARHEEN Cruz.
--- NOTE | 2018-05-17 19:30 | NUR ---
NURSE NOTES: RECEIVED PATIENT LYING IN BED, AWAKE, ALERT/ORIENTED TO SELF, REALITY ORIENTATION PROVIDED. LEGALLY BLIND. DRESSING DRY AND INTACT TO RIGHT SIDE OF FACE. NO SIGNS AND SYMPTOMS OF ACUTE CARDIO RESPIRATORY DISTRESS/SHORTNESS OF BREATH, NO PERIPHERAL EDEMA NOTED. INCONTINENT OF B/B, LAST BM 05/16/18. SCABS NOTED TO LEFT HAND, LEFT EAR, LEFT SIDE OF FACE. SIDE RAILS UP X3/BED IN LOWEST POSITION FOR SAFETY. CALL LIGHT WITHIN REACH. FREQUENT ROUNDING FOR SAFETY/NEEDS. NAD.
[2018-05-17 20:00] VITALS: BP 116/64
[2018-05-18] VITALS: BP 108/64
--- NOTE | 2018-05-18 06:18 | NUR ---
NURSE NOTES: RESTED WELL, NO SIGNIFICANT CHANGE OF CONDITION NOTED THROUGHOUT THE NIGHT. SAFETY MAINTAINED. NAD.
--- NOTE | 2018-05-18 07:30 | NUR ---
HAND-OFF: Report given to ANISH ROSS.
--- NOTE | 2018-05-18 08:28 | Infectious Diseases Prog Note ---
Assessment/Plan Assessment/Plan Sepsis- ?source- r/o UTI, PNA- now resolved Afebrile Leukocytosis Increased 04/27/18 , recurrent- r/o Cdiff, RACHNA -CXR 05/09 :Hypoventilatory exam. No definite acute process -CXR 04/28: No acute findings Unclear source no sign of active infection resection of carcinoma from right side of face/eye Wnd Cx : GPC -hx of superinfected necrotic mass and possible micro abscess s/p Tx 06/2017 -wound cx MRSA, diphterouids, ESBL Proteus 04/14/19 Wound Cx Providencia and MRSA FTT COPD dysphasia schizophrenia HTN MDD legally blind hx of VRE/MRSA colonization Plan: - Monitor off abx as he is clinically stable - 04/24/18 SP PO Bactrim DS BID - 04/20/18 SP empiric Azactam , Flagyl and IV Vanco d# 6/10 - 04/15/18 SP Ceftriaxone d# 2 -f/u u/a w/ reflex, Bcx x2 (rfused Bcx) -Cdiff if diarrhea -Monitor CBC/CMP, temperatures -CBC, CMP, amylase, lipase am (refused labs) Subjective Allergies: Coded Allergies: BENZTROPINE (Unverified Allergy, Unknown, 02/22/14) HALOPERIDOL (Unverified Allergy, Unknown, 02/22/14) PENICILLINS (Unverified Allergy, Unknown, 04/14/18) tolerated Ceftriaxone 06/2017 Subjective Sitting in bed No new complaints Afebrile Objective Vital Signs Last 24 Hour Vital Signs Date Time Temp Pulse Resp B/P (MAP) Pulse Ox O2 Delivery O2 Flow Rate FiO2 05/18/18 00:00 97.9 80 18 108/64 (79) 98 05/17/18 21:00 Room Air 05/17/18 20:00 98.2 63 17 116/64 (81) 94 05/17/18 16:00 98.6 67 18 109/70 (83) 96 05/17/18 12:00 98.9 70 18 105/68 (80) 95 05/17/18 09:00 Room Air Height (Feet): 5 Height (Inches): 10.00 Weight (Pounds): 162 Objective General: NAD, Sitting in bed HEENT: NCAT, Right eye wound covered with bandage, left eye - visible cataract , glassy/hazy appearance Respiratory: CATB, No W/C Cardiovascular no edema, tachycardia Gastrointestinal: normal bowel sounds, non tender, soft Current Medications Medications (Trade) Dose Ordered Sig/Jordi Route PRN Reason Start Time Stop Time Status Last Admin Dose Admin Docusate Sodium (Colace) 100 mg TWICE A DAY ORAL 05/07/18 18:00 06/06/18 17:59 05/17/18 17:28 Famotidine (Pepcid) 20 mg BID ORAL 05/05/18 18:00 05/18/18 17:59 05/17/18 17:28 Lorazepam (Ativan) 1 mg Q6H PRN ORAL ANXIETY 05/13/18 12:45 05/20/18 12:44 05/15/18 09:26 Olanzapine (ZyPREXA) 10 mg TID ORAL 05/05/18 18:00 05/25/18 17:59 05/17/18 17:28 Phosphorus (Phospha 250 Neutral) 500 mg THREE TIMES A DAY ORAL 05/05/18 18:00 05/20/18 17:59 05/17/18 17:28 Polyethylene Glycol (Miralax) 17 gm DAILYPRN PRN ORAL Constipation 05/07/18 16:00 06/06/18 15:59 05/07/18 17:35 Quetiapine Fumarate (SEROquel) 150 mg EVERY 8 HOURS ORAL 05/05/18 22:00 05/21/18 05:59 05/18/18 06:01 Jozef Greene MD May 18, 2018 08:28
--- NOTE | 2018-05-18 08:41 | Cardiology Progress Note ---
Assessment/Plan Status: stable Assessment/Plan Assessment/Plan Assessment/Plan 1. Sinus tachycardia due to anxiety and infection. HR better 2. Hypertension, refusing BP meds. 3. Schizophrenia. 4. Right facial basal cell carcinoma, status post surgery 5. Dysphagia, resolved 6. Non compliant Awaiting placement Subjective Cardiovascular: Reports: no symptoms Respiratory: Reports: no symptoms Gastrointestinal/Abdominal: Reports: no symptoms Genitourinary: Reports: no symptoms Subjective Coverage for [place] No acute distress, no changes, awaiting placement Objective Last 24 Hour Vital Signs Date Time Temp Pulse Resp B/P (MAP) Pulse Ox O2 Delivery O2 Flow Rate FiO2 05/18/18 00:00 97.9 80 18 108/64 (79) 98 05/17/18 21:00 Room Air 05/17/18 20:00 98.2 63 17 116/64 (81) 94 05/17/18 16:00 98.6 67 18 109/70 (83) 96 05/17/18 12:00 98.9 70 18 105/68 (80) 95 05/17/18 09:00 Room Air General Appearance: no apparent distress EENT: PERRL/EOMI, normal ENT inspection, TMs normal, pharynx normal Neck: non-tender, normal alignment, supple, normal inspection, no JVD Rhythm: NSR Cardiovascular: normal peripheral pulses, normal rate, regular rhythm Respiratory/Chest: chest wall non-tender, lungs clear Abdomen: normal bowel sounds, non tender, soft, no organomegaly, no mass Extremities: normal range of motion, non-tender, normal inspection Neurologic: mammographer II-XII grossly normal, no motor/sensory deficits Intake and Output 05/17/18 05/18/18 19:00 07:00 Intake Total 1600 ml 240 ml Balance 1600 ml 240 ml Intake Oral 240 ml Other 1600 ml # Voids 1 Jozef Wells MD May 18, 2018 08:41
[2018-05-18] MEDS: OLANZapine 10mg tab ORAL SCH ×3 (09:07→17:24)
[2018-05-18] MEDS: Phospha 250 Neutral tab ORAL SCH ×3 (09:07→17:24)
[2018-05-18] MEDS: Docusate 100mg cap ORAL SCH ×2 (09:07→17:24)
--- NOTE | 2018-05-18 10:49 | GI Progress Note ---
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 Ferguson Assessment/Plan No changes from prior day, placement issue psych f/u defer PEG, the patient has shown improvement in caloric intake and shows no signs of dysphagia or risk for aspiration. Patient on regular diet push p.o. One-to-one feeder IV/p.o. hydration Antibiotics PPI Bowel regimen, refused Senokot Follow-up labs The patient was seen and examined at bedside and all new and available data was reviewed in the patients chart. I agree with the above findings, impression and plan. (Patient seen earlier today. Signature stamp does not reflect patient encounter time.). - Juliocesar Ferguson MD Subjective Subjective Limited Objective Last 24 Hour Vital Signs Date Time Temp Pulse Resp B/P (MAP) Pulse Ox O2 Delivery O2 Flow Rate FiO2 05/18/18 09:00 Room Air 05/18/18 00:00 97.9 80 18 108/64 (79) 98 05/17/18 21:00 Room Air 05/17/18 20:00 98.2 63 17 116/64 (81) 94 05/17/18 16:00 98.6 67 18 109/70 (83) 96 05/17/18 12:00 98.9 70 18 105/68 (80) 95 Intake and Output 05/17/18 05/18/18 19:00 07:00 Intake Total 1600 ml 240 ml Balance 1600 ml 240 ml Intake Oral 240 ml Other 1600 ml # Voids 1 Height (Feet): 5 Height (Inches): 10.00 Weight (Pounds): 162 General Appearance: WD/WN, no apparent distress, alert Cardiovascular: normal rate Respiratory/Chest: normal breath sounds, no respiratory distress Abdominal Exam: normal bowel sounds, non tender, soft Extremities: normal range of motion, non-tender Objective Legally blind Roxanna Saavedra NP May 18, 2018 10:49
[2018-05-18 12:00] VITALS: BP 113/69
--- NOTE | 2018-05-18 12:16 | General Progress Note ---
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 SNOMED: 88089671 (2) Basal cell carcinoma ICD Codes: C44.91 - Basal cell carcinoma of skin, unspecified SNOMED: 794666217 (3) Generalized weakness ICD Codes: R53.1 - Weakness SNOMED: 13963676 (4) Cellulitis and abscess of face ICD Codes: L03.211 - Cellulitis of face; L02.01 - Cutaneous abscess of face SNOMED: 663106169 (5) Severe malnutrition ICD Codes: E43 - Unspecified severe protein-calorie malnutrition SNOMED: 90573440 (6) Failure to thrive in adult ICD Codes: R62.7 - Adult failure to thrive SNOMED: 698072750 (7) HTN (hypertension) ICD Codes: I10 - Essential (primary) hypertension SNOMED: 05911194 (8) UTI (urinary tract infection) ICD Codes: N39.0 - Urinary tract infection, site not specified SNOMED: 23388633 Status: stable, progressing Assessment/Plan pt diet abx prn cbc bmp am dc if clear Subjective Constitutional: Reports: weakness Allergies: Coded Allergies: BENZTROPINE (Unverified Allergy, Unknown, 02/22/14) HALOPERIDOL (Unverified Allergy, Unknown, 02/22/14) PENICILLINS (Unverified Allergy, Unknown, 04/14/18) tolerated Ceftriaxone 06/2017 All Systems: reviewed and negative except above Subjective sleepy calm Objective Last 24 Hour Vital Signs Date Time Temp Pulse Resp B/P (MAP) Pulse Ox O2 Delivery O2 Flow Rate FiO2 05/18/18 09:00 Room Air 05/18/18 00:00 97.9 80 18 108/64 (79) 98 05/17/18 21:00 Room Air 05/17/18 20:00 98.2 63 17 116/64 (81) 94 05/17/18 16:00 98.6 67 18 109/70 (83) 96 Intake and Output 05/17/18 05/18/18 19:00 07:00 Intake Total 1600 ml 240 ml Balance 1600 ml 240 ml Intake Oral 240 ml Other 1600 ml # Voids 1 Height (Feet): 5 Height (Inches): 10.00 Weight (Pounds): 162 General Appearance: lethargic EENT: normal ENT inspection Neck: normal alignment Cardiovascular: normal peripheral pulses, normal rate, regular rhythm Respiratory/Chest: chest wall non-tender, lungs clear, normal breath sounds Abdomen: normal bowel sounds, non tender, soft Extremities: normal inspection Edema: no edema noted Arm (L), no edema noted Arm (R), no edema noted Leg (L), no edema noted Leg (R), no edema noted Pedal (L), no edema noted Pedal (R), no edema noted Generalized Neurologic: motor weakness Skin: normal pigmentation, warm/dry Julio Higgins DO May 18, 2018 12:16
[2018-05-18] MEDS: LORazepam 1mg tab ORAL PRN (12:51)
--- NOTE | 2018-05-18 13:27 | NUR ---
NURSE NOTES: PT RESTING IN BED, COMPLIANT WITH MEDIATIONS AND CALM AT THIS TIME. WOUND DRESSING OF RIGHT EYE CHANGED. WOUND SEEN BY GORE STITCHER AND OK TO CONTINUE RINSING WITH NS AND APPLYING OPTIFOAM. BED IN LOWEST POSITION WITH HOB ELEVATED. BED ALARM ON AND CALL LIGHT WITHIN REACH.
--- NOTE | 2018-05-18 13:43 | Nephrology Progress Note ---
Assessment/Plan Problem List: (1) HTN (hypertension) (2) Failure to thrive in adult (3) Cellulitis and abscess of face (4) Schizophreniform psychosis Assessment WBC now wnl (1) Dysphasia (2) Encounter for PEG (percutaneous endoscopic gastrostomy) (3) Schizophrenia (4) Failure to thrive in adult (5) Generalized weakness (6) Severe malnutrition (7) Dehydration (8) Schizophrenia (9) HTN (10) Legally Blind Plan Flomax Psych mangement per consultants ? DC planning Subjective ROS Limited/Unobtainable: No Objective Objective Last 24 Hour Vital Signs Date Time Temp Pulse Resp B/P (MAP) Pulse Ox O2 Delivery O2 Flow Rate FiO2 05/18/18 12:00 98.2 60 18 113/69 (84) 96 05/18/18 09:00 Room Air 05/18/18 00:00 97.9 80 18 108/64 (79) 98 05/17/18 21:00 Room Air 05/17/18 20:00 98.2 63 17 116/64 (81) 94 05/17/18 16:00 98.6 67 18 109/70 (83) 96 Intake and Output 05/17/18 05/18/18 19:00 07:00 Intake Total 1600 ml 240 ml Balance 1600 ml 240 ml Intake Oral 240 ml Other 1600 ml # Voids 1 Height (Feet): 5 Height (Inches): 10.00 Weight (Pounds): 162 General Appearance: no apparent distress Objective no change Al Roper MD May 18, 2018 13:43
--- NOTE | 2018-05-18 16:03 | NUR ---
[employer] SI: FAILURE TO THRIVE T. 98.2 HR 60 RR 18 B/P 113/69 RA 98% IS: SEROQUEL PO ZYPREXA PO PHOSLO PO PLACEMENT PENDING MED/SURG STATUS
--- NOTE | 2018-05-18 17:41 | General Progress Note ---
Assessment/Plan Assessment/Plan # Leukocytosis. Secondary to underlying infection, sepsis of R eye/hx malignancy that side --> Monitor and trend wbc for improvement -->16.6-->23.0-->31.5-->9.2-->11.2-->22.9-->10-->15 --> Peripheral smear has been reviewed, no blasts noted --> Medications have been reviewed --> Imaging has been reviewed --> cont on abx, empiric treatment --> per ID management # Carcinoma resection of from right side of face/eye --> as per outpatient onc # Anemia of chronic disease --> anemia panel has been reviewed --> trend hgb 12.8-->10.2-->10 # FTT --> refusing care --> defer peg tube given improvement in po intake --> calorie counts and weights weekly --> mirtazpine as needed # Sepsis. improved # H/O superinfected necrotic mass and possible micro abscess s/p Tx 06/2017 # Wound. # COPD. # Dysphasia # Schizophrenia # HTN. # Legally blind Time and date note entered in EMR does not reflect time and date of encounter. GREATLY APPRECIATE CONSULTATION. Subjective Constitutional: Denies: no symptoms, chills, diaphoresis, fever, malaise, weakness, other HEENT: Denies: no symptoms, eye pain, blurred vision, tearing, double vision, ear pain, ear discharge, nose pain, nose congestion, throat pain, throat swelling, mouth pain, mouth swelling, other Cardiovascular: Denies: no symptoms, chest pain, edema, irregular heart rate, lightheadedness, palpitations, syncope, other Respiratory: Denies: no symptoms, cough, orthopnea, shortness of breath, SOB with excertion, SOB at rest, sputum, stridor, wheezing, other Gastrointestinal/Abdominal: Denies: no symptoms, abdomen distended, abdominal pain, black stools, tarry stools, blood in stool, constipated, diarrhea, difficulty swallowing, nausea, poor appetite, poor fluid intake, rectal bleeding , vomiting, other Genitourinary: Denies: no symptoms, burning, discharge, frequency, flank pain, hematuria, incontinence, pain, urgency, other Neurologic/Psychiatric: Denies: no symptoms, anxiety, depressed, emotional problems, headache, numbness, paresthesia, pre-existing deficit, seizure, tingling, tremors, weakness, other Endocrine: Denies: no symptoms, excessive sweating, flushing, intolerance to cold, intolerance to heat, increased hunger, increased thirst, increased urine, unexplained weight gain, unexplained weight loss, other Hematologic/Lymphatic: Denies: no symptoms, anemia, easy bleeding, easy bruising, other Allergies: Coded Allergies: BENZTROPINE (Unverified Allergy, Unknown, 02/22/14) HALOPERIDOL (Unverified Allergy, Unknown, 02/22/14) PENICILLINS (Unverified Allergy, Unknown, 04/14/18) tolerated Ceftriaxone 06/2017 Subjective 04/15: Pt awake and agitated. No acute events. Pt refusing meds. 04/16: wbc severely elevated, seen by Id, on broad spectrum antifungals, foul language, very aggressive 04/18: no events, mumbling, minimally conversive, no fevers, down on ivf 04/19: pt is awake and resting in bed. refusing care, aggressive, no events 04/20: Pt is awake and alert, refusing care, minimally conversive, on abx, wbc have improved. 04/21: Pt is awake and resting in bed, aggressive, mumbling, 04/22: Pt is resting in bed. PEG has been defered, the patient has shown improvement in caloric intake and shows no signs of dysphagia or risk for aspiration. 04/23: Pt is seen in the room, resting in bed, refusing care, on abx, pending labs /: No events, has been agitated overnight, refusing care 04/25: Pt is awake and resting in bed, refusing labs, agitated, screaming, refusing care 04/26: no major events, no fevers or chills, no chest pain or sob 04/27: pt is seen by bedside, awake and comfortable, wbc is at 22.9 today. 04/28: peg has been deferred, gi recs reviewed, no events, slightly agitated 04/29: no events, refusing care, no change other, remains aggressive, says "don' t touch me" 04/30: continues to cuss out, rn by bedside with conservator and able to chnage wound on eye R 05/01: Pt is awake and calm, alert oriented x1, remains afebrile off abx and leukocytosis resolved 05/02: Pt is seen by bedside, awake and calm, no events. pending labs 05/03: Pt is alert and oriented x1, remains afebrile off abx and leukocytosis resolved 05/04: accepted at [place], [facility] as early as today 05/05: pt came back from [place] facility. They were unable to accept the pt due to pt's agitation worsenin 05/09: Pt is awake, seen by bedside, pending placement, no events 05/10: no fevers noted, no chills, getting abx, but refuisng blood draws 05/11: seen by bedside, awake and comfortable, no overnight events, refusing blood draws 05/12: Pt is awake, confused, refusing labs, no events reported 05/13: seen by bedside, awake, comfortable, no events, refusing meds. placement pending 05/15: pt is awake, no fevers or chills, no events, placement pending. 05/16: Pt is seen by bedside, awake, comfortable, denies acute distress, wbc 15 05/17: Pt is comfortable and resting in bed, confused, wbc 15 05/18: Pt is awake , no fevers or chills, Objective Last 24 Hour Vital Signs Date Time Temp Pulse Resp B/P (MAP) Pulse Ox O2 Delivery O2 Flow Rate FiO2 05/18/18 12:00 98.2 60 18 113/69 (84) 96 05/18/18 09:00 Room Air 05/18/18 00:00 97.9 80 18 108/64 (79) 98 05/17/18 21:00 Room Air 05/17/18 20:00 98.2 63 17 116/64 (81) 94 Intake and Output 05/17/18 05/18/18 19:00 07:00 Intake Total 1600 ml 240 ml Balance 1600 ml 240 ml Intake Oral 240 ml Other 1600 ml # Voids 1 Height (Feet): 5 Height (Inches): 10.00 Weight (Pounds): 162 Objective Vitals: Have been reviewed General Appearance: alert, agitated Head: normocephalic, atraumatic Eyes: right eye abnormal pupil - right eye has patch which covers the right temporal area of face as well from cancer ressection; left eye other - visible cataract, glassy/hazy appearance, unchanged ENT: hearing grossly normal, other Neck: full range of motion Respiratory: chest non-tender, lungs clear Cardiovascular no edema, tachycardia Gastrointestinal: normal bs, non tender, soft MSK: back normal, non-tender, bilateral hand contractures Skin: normal color, no rash, warm/dry Jr Daly MD May 18, 2018 17:41
--- NOTE | 2018-05-18 19:17 | NUR ---
HAND-OFF: Report given to Nell VILLARREAL LVN.
--- NOTE | 2018-05-18 19:30 | NUR ---
NURSE NOTES: RECEIVED PATIENT LYING IN BED, LEGALLY BLIND, NO IV ACCESS, MD AWARE. APPEAR TO BE ASLEEP, AWAKENED TO NAME,. DENIES PAIN, NO SIGNS AND SYMPTOMS OF ACUTE CARDIO RESPIRATORY DISTRESS/SHORTNESS OF BREATH, NO EDEMA NOTED. DRESSING DRY AND INTACT TO RIGHT SIDE OF FACE, DRY SCABS NOTED TO LEFT HAND, LEFT EAR. NO REPORT OF GI DISCOMFORT, N O N/V/D. CARE PROVIDED, ASSISTED WITH REPOSITIONING. SIDE RAILS UP X3/BED IN LOWEST POSITION FOR SAFETY. CALL LIGHT WITHIN REACH. NAD.
[2018-05-18 20:00] VITALS: BP 99/60
[2018-05-19] VITALS: BP 109/63
[2018-05-19 04:00] VITALS: BP 128/74
--- NOTE | 2018-05-19 07:30 | NUR ---
HAND-OFF: Report given to zackery matute.
[2018-05-19 08:00] VITALS: BP 111/73
[2018-05-19] MEDS: Phospha 250 Neutral tab ORAL SCH ×3 (09:15→17:18)
[2018-05-19] MEDS: Docusate 100mg cap ORAL SCH ×2 (09:15→17:17)
[2018-05-19] MEDS: OLANZapine 10mg tab ORAL SCH ×3 (09:15→17:18)
--- NOTE | 2018-05-19 09:55 | Cardiology Progress Note ---
Assessment/Plan Status: stable Assessment/Plan Assessment/Plan Assessment/Plan 1. Sinus tachycardia due to anxiety and infection. HR better 2. Hypertension, refusing BP meds. 3. Schizophrenia. 4. Right facial basal cell carcinoma, status post surgery 5. Dysphagia, resolved 6. Non compliant Awaiting placement Subjective Cardiovascular: Reports: no symptoms Respiratory: Reports: no symptoms Gastrointestinal/Abdominal: Reports: no symptoms Genitourinary: Reports: no symptoms Subjective Coverage for [place] No acute distress, no changes, awaiting placement PEG deferred due to increased PO intake Objective Last 24 Hour Vital Signs Date Time Temp Pulse Resp B/P (MAP) Pulse Ox O2 Delivery O2 Flow Rate FiO2 05/19/18 08:00 97.5 69 18 111/73 (86) 96 05/19/18 04:00 97.6 62 18 128/74 (92) 95 05/19/18 00:00 98.3 64 19 109/63 (78) 94 05/18/18 21:00 Room Air 05/18/18 20:00 98.3 67 20 99/60 (73) 97 05/18/18 12:00 98.2 60 18 113/69 (84) 96 General Appearance: no apparent distress, alert EENT: PERRL/EOMI, normal ENT inspection, TMs normal, pharynx normal Neck: non-tender, normal alignment, supple, normal inspection, no JVD Rhythm: NSR Cardiovascular: normal peripheral pulses, normal rate Respiratory/Chest: chest wall non-tender, lungs clear Abdomen: normal bowel sounds, non tender, soft, no organomegaly, no mass Extremities: normal range of motion, non-tender Neurologic: calender worker helper II-XII grossly normal, no motor/sensory deficits Intake and Output 05/18/18 05/19/18 19:00 07:00 Intake Total 1040 ml 480 ml Output Total 900 ml Balance 140 ml 480 ml Intake Oral 1040 ml 480 ml Output Urine Total 900 ml # Voids 2 # Bowel Movements 1 Jozef eWlls MD May 19, 2018 09:55
--- NOTE | 2018-05-19 11:18 | GI Progress Note ---
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 Ferguson. Assessment/Plan No changes from prior day, placement issue psych f/u defer PEG, the patient has shown improvement in caloric intake and shows no signs of dysphagia or risk for aspiration. Patient on regular diet, eating well per RN report push p.o. One-to-one feeder IV/p.o. hydration Antibiotics PPI Bowel regimen, refused Senokot Follow-up labs dc plans The patient was seen and examined at bedside and all new and available data was reviewed in the patients chart. I agree with the above findings, impression and plan. (Patient seen earlier today. Signature stamp does not reflect patient encounter time.). - Juliocesar Ferguson MD Subjective Subjective Limited Objective Last 24 Hour Vital Signs Date Time Temp Pulse Resp B/P (MAP) Pulse Ox O2 Delivery O2 Flow Rate FiO2 05/19/18 09:00 Room Air 05/19/18 08:00 97.5 69 18 111/73 (86) 96 05/19/18 04:00 97.6 62 18 128/74 (92) 95 05/19/18 00:00 98.3 64 19 109/63 (78) 94 05/18/18 21:00 Room Air 05/18/18 20:00 98.3 67 20 99/60 (73) 97 05/18/18 12:00 98.2 60 18 113/69 (84) 96 Intake and Output 05/18/18 05/19/18 19:00 07:00 Intake Total 1040 ml 480 ml Output Total 900 ml Balance 140 ml 480 ml Intake Oral 1040 ml 480 ml Output Urine Total 900 ml # Voids 2 # Bowel Movements 1 Height (Feet): 5 Height (Inches): 10.00 Weight (Pounds): 162 General Appearance: WD/WN, no apparent distress, alert Cardiovascular: normal rate Respiratory/Chest: normal breath sounds, no respiratory distress Abdominal Exam: normal bowel sounds, non tender, soft Extremities: non-tender Objective Legally blind Roxanna Saavedra NP May 19, 2018 11:18
[2018-05-19 12:00] VITALS: BP 115/70
--- NOTE | 2018-05-19 12:29 | NUR ---
RD ASSESSMENT & RECOMMENDATIONS SEE CARE ACTIVITY FOR COMPLETE ASSESSMENT DAILY ESTIMATED NEEDS: Needs based on Wound/ 71kg 25-30 kcals/kg 8059-8973 total kcals 1.25-1.7 g protein/kg 88-120 g total protein 25-30 mL/kg 7328-7200 total fluid mLs NUTRITION DIAGNOSIS: * Increased kcal/pro intake needs R/T wound healing as evidenced by pt w/ open wound @ rt eye due to h/o resection of carcinoma. * Inadequate oral intake R/T psych issues? etiology unknown as evidenced by pt admitted w/ c/o refusing to eat w/ FTT dx, now w/ improved oral intake. CURRENT DIET:REGULAR PO DIET RECOMMENDATIONS: Liberalized REGULAR diet/ texture per PIT FURNACE OPERATOR + ENSURE TID ADDITIONAL RECOMMENDATIONS: * Calibrated bedscale for accurate UP-dated weight * ENSURE ENLIVE TID w/ meals * Wound healing: continue MVI x 1, Vit C 500mg QD : Add Crispin 1pkt BID * PIT FURNACE OPERATOR eval for appropriate texture * Updated labs as able for eval *
--- NOTE | 2018-05-19 12:33 | Infectious Diseases Prog Note ---
Assessment/Plan Assessment/Plan Sepsis- ?source- r/o UTI, PNA- now resolved Afebrile Leukocytosis Increased 04/27/18 , recurrent- r/o Cdiff, RACHNA -CXR 05/09 :Hypoventilatory exam. No definite acute process -CXR 04/28: No acute findings Unclear source no sign of active infection resection of carcinoma from right side of face/eye Wnd Cx : GPC -hx of superinfected necrotic mass and possible micro abscess s/p Tx 06/2017 -wound cx MRSA, diphterouids, ESBL Proteus 04/14/19 Wound Cx Providencia and MRSA FTT COPD dysphasia schizophrenia HTN MDD legally blind hx of VRE/MRSA colonization Plan: - Monitor off abx - 04/24/18 SP PO Bactrim DS BID - 04/20/18 SP empiric Azactam , Flagyl and IV Vanco d# 6/10 - 04/15/18 SP Ceftriaxone d# 2 -f/u u/a w/ reflex, Bcx x2 (rfused Bcx) -Cdiff if diarrhea -Monitor CBC/CMP, temperatures -CBC, CMP, amylase, lipase am (refused labs) Subjective Allergies: Coded Allergies: BENZTROPINE (Unverified Allergy, Unknown, 02/22/14) HALOPERIDOL (Unverified Allergy, Unknown, 02/22/14) PENICILLINS (Unverified Allergy, Unknown, 04/14/18) tolerated Ceftriaxone 06/2017 Subjective Sitting in bed Afebrile Objective Vital Signs Last 24 Hour Vital Signs Date Time Temp Pulse Resp B/P (MAP) Pulse Ox O2 Delivery O2 Flow Rate FiO2 05/19/18 12:00 97.8 65 18 115/70 (85) 96 05/19/18 09:00 Room Air 05/19/18 08:00 97.5 69 18 111/73 (86) 96 05/19/18 04:00 97.6 62 18 128/74 (92) 95 05/19/18 00:00 98.3 64 19 109/63 (78) 94 05/18/18 21:00 Room Air 05/18/18 20:00 98.3 67 20 99/60 (73) 97 Height (Feet): 5 Height (Inches): 10.00 Weight (Pounds): 162 Objective General: NAD HEENT: NCAT, Right eye wound covered with bandage, left eye - visible cataract , glassy/hazy appearance Respiratory: CATB, No W/C Cardiovascular RRR Gastrointestinal: normal bowel sounds, non tender, soft Current Medications Medications (Trade) Dose Ordered Sig/Jordi Route PRN Reason Start Time Stop Time Status Last Admin Dose Admin Docusate Sodium (Colace) 100 mg TWICE A DAY ORAL 05/07/18 18:00 06/06/18 17:59 05/19/18 09:15 Lorazepam (Ativan) 1 mg Q6H PRN ORAL ANXIETY 05/13/18 12:45 05/20/18 12:44 05/18/18 12:51 Olanzapine (ZyPREXA) 10 mg TID ORAL 05/05/18 18:00 05/25/18 17:59 05/19/18 09:15 Phosphorus (Phospha 250 Neutral) 500 mg THREE TIMES A DAY ORAL 05/05/18 18:00 05/20/18 17:59 05/19/18 09:15 Polyethylene Glycol (Miralax) 17 gm DAILYPRN PRN ORAL Constipation 05/07/18 16:00 06/06/18 15:59 05/07/18 17:35 Quetiapine Fumarate (SEROquel) 150 mg EVERY 8 HOURS ORAL 05/05/18 22:00 05/21/18 05:59 05/19/18 05:52 Jozef Greene MD May 19, 2018 12:33
--- NOTE | 2018-05-19 13:14 | General Progress Note ---
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 SNOMED: 73511120 (2) Basal cell carcinoma ICD Codes: C44.91 - Basal cell carcinoma of skin, unspecified SNOMED: 839627592 (3) Generalized weakness ICD Codes: R53.1 - Weakness SNOMED: 48256000 (4) Cellulitis and abscess of face ICD Codes: L03.211 - Cellulitis of face; L02.01 - Cutaneous abscess of face SNOMED: 601881865 (5) Severe malnutrition ICD Codes: E43 - Unspecified severe protein-calorie malnutrition SNOMED: 47787682 (6) Failure to thrive in adult ICD Codes: R62.7 - Adult failure to thrive SNOMED: 449358022 (7) HTN (hypertension) ICD Codes: I10 - Essential (primary) hypertension SNOMED: 02936302 (8) UTI (urinary tract infection) ICD Codes: N39.0 - Urinary tract infection, site not specified SNOMED: 72125368 Status: unchanged Assessment/Plan pt diet abx prn cbc bmp am dc if clear Subjective Constitutional: Reports: weakness Allergies: Coded Allergies: BENZTROPINE (Unverified Allergy, Unknown, 02/22/14) HALOPERIDOL (Unverified Allergy, Unknown, 02/22/14) PENICILLINS (Unverified Allergy, Unknown, 04/14/18) tolerated Ceftriaxone 06/2017 All Systems: reviewed and negative except above Subjective sleepy calm Objective Last 24 Hour Vital Signs Date Time Temp Pulse Resp B/P (MAP) Pulse Ox O2 Delivery O2 Flow Rate FiO2 05/19/18 12:00 97.8 65 18 115/70 (85) 96 05/19/18 09:00 Room Air 05/19/18 08:00 97.5 69 18 111/73 (86) 96 05/19/18 04:00 97.6 62 18 128/74 (92) 95 05/19/18 00:00 98.3 64 19 109/63 (78) 94 05/18/18 21:00 Room Air 05/18/18 20:00 98.3 67 20 99/60 (73) 97 Intake and Output 05/18/18 05/19/18 19:00 07:00 Intake Total 1040 ml 480 ml Output Total 900 ml Balance 140 ml 480 ml Intake Oral 1040 ml 480 ml Output Urine Total 900 ml # Voids 2 # Bowel Movements 1 Height (Feet): 5 Height (Inches): 10.00 Weight (Pounds): 162 General Appearance: lethargic, confused EENT: normal ENT inspection Neck: normal alignment Cardiovascular: normal peripheral pulses, normal rate, regular rhythm Respiratory/Chest: chest wall non-tender, lungs clear, normal breath sounds Abdomen: normal bowel sounds, non tender, soft Extremities: normal inspection Edema: no edema noted Arm (L), no edema noted Arm (R), no edema noted Leg (L), no edema noted Leg (R), no edema noted Pedal (L), no edema noted Pedal (R), no edema noted Generalized Neurologic: motor weakness Skin: normal pigmentation, warm/dry Julio Higgins DO May 19, 2018 13:14
[2018-05-19 15:17] VITALS: BP 118/64
--- NOTE | 2018-05-19 15:27 | NUR ---
Social Service Note ERIC received a call from the town administrator of [facility] Enriqueta Meneses [phone]. Enriqueta is requesting for clinicals to be faxed to [phone] for review and acceptance of there patient. Patient's information faxed. Once reviewed Admin will contact ERIC with bed assignment. ERIC will inform [facility] [phone] outcome of referral. Will continue to monitor and follow up.
--- NOTE | 2018-05-19 16:15 | NUR ---
Social Service Note SW received a return call from Juliana at [facility] [phone] patient accepted half-way to room [address] 102[address]. Nurse to call report prior to transfer. Transportation arranged with [facility] [phone] pickle water pump operator time 1830. Primary and charge nurse aware. Message left for patient's sister Dora David [phone] informing her of dc.
[2018-05-19] MEDS: LORazepam 1mg tab ORAL PRN (17:18)
--- NOTE | 2018-05-19 18:18 | Nephrology Progress Note ---
Assessment/Plan Problem List: (1) HTN (hypertension) (2) Failure to thrive in adult (3) Cellulitis and abscess of face (4) Schizophreniform psychosis Assessment WBC now wnl (1) Dysphasia (2) Encounter for PEG (percutaneous endoscopic gastrostomy) (3) Schizophrenia (4) Failure to thrive in adult (5) Generalized weakness (6) Severe malnutrition (7) Dehydration (8) Schizophrenia (9) HTN (10) Legally Blind Plan Flomax Psych mangement per consultants ? DC planning Subjective ROS Limited/Unobtainable: No Objective Objective Last 24 Hour Vital Signs Date Time Temp Pulse Resp B/P (MAP) Pulse Ox O2 Delivery O2 Flow Rate FiO2 05/19/18 15:17 98.0 71 20 118/64 (82) 96 05/19/18 12:00 97.8 65 18 115/70 (85) 96 05/19/18 09:00 Room Air 05/19/18 08:00 97.5 69 18 111/73 (86) 96 05/19/18 04:00 97.6 62 18 128/74 (92) 95 05/19/18 00:00 98.3 64 19 109/63 (78) 94 05/18/18 21:00 Room Air 05/18/18 20:00 98.3 67 20 99/60 (73) 97 Intake and Output 05/18/18 05/19/18 19:00 07:00 Intake Total 1040 ml 480 ml Output Total 900 ml Balance 140 ml 480 ml Intake Oral 1040 ml 480 ml Output Urine Total 900 ml # Voids 2 # Bowel Movements 1 Height (Feet): 5 Height (Inches): 10.00 Weight (Pounds): 162 General Appearance: no apparent distress Objective no change Al Roper MD May 19, 2018 18:18
--- NOTE | 2018-05-19 18:33 | NUR ---
NURSE NOTES: PT MADE AWARE OF DISCHARGE TO [facility]. PT AGREES WITH DISCHARGE. BELONGINGS CHECKED AT BEDSIDE AND ALL BELONGINGS ACCOUNTED. RN LEFT MESSAGE FOR CONSERVATOR/ ALIA PASCUAL. IN NO APPARENT DISTRESS AT THIS TIME. WILL CONTINUE TO MONITOR.
--- NOTE | 2018-05-19 18:39 | NUR ---
NURSE NOTES: RN CALLED [facility] TO GIVE REPORT. PER MINI SHIFTER, NURSE METAL FURNITURE GLAZIER IS BUSY AND WILL CALL BACK. RN LEFT CALL BACK NUMBER. [facility] ETA 2000HRS.
--- NOTE | 2018-05-19 19:13 | General Progress Note ---
Assessment/Plan Assessment/Plan # Leukocytosis. Secondary to underlying infection, sepsis of R eye/hx malignancy that side --> Monitor and trend wbc for improvement -->16.6-->23.0-->31.5-->9.2-->11.2-->22.9-->10-->15 --> Peripheral smear has been reviewed, no blasts noted --> Medications have been reviewed --> Imaging has been reviewed --> cont on abx, empiric treatment --> per ID management # Carcinoma resection of from right side of face/eye --> as per outpatient onc # Anemia of chronic disease --> anemia panel has been reviewed --> trend hgb 12.8-->10.2-->10 # FTT --> refusing care --> defer peg tube given improvement in po intake --> calorie counts and weights weekly --> mirtazpine as needed # Sepsis. improved # H/O superinfected necrotic mass and possible micro abscess s/p Tx 06/2017 # Wound. # COPD. # Dysphasia # Schizophrenia # HTN. # Legally blind Time and date note entered in EMR does not reflect time and date of encounter. GREATLY APPRECIATE CONSULTATION. Subjective Gastrointestinal/Abdominal: Denies: no symptoms, abdomen distended, abdominal pain, black stools, tarry stools, blood in stool, constipated, diarrhea, difficulty swallowing, nausea, poor appetite, poor fluid intake, rectal bleeding , vomiting, other Genitourinary: Denies: no symptoms, burning, discharge, frequency, flank pain, hematuria, incontinence, pain, urgency, other Neurologic/Psychiatric: Denies: no symptoms, anxiety, depressed, emotional problems, headache, numbness, paresthesia, pre-existing deficit, seizure, tingling, tremors, weakness, other Endocrine: Denies: no symptoms, excessive sweating, flushing, intolerance to cold, intolerance to heat, increased hunger, increased thirst, increased urine, unexplained weight gain, unexplained weight loss, other Allergies: Coded Allergies: BENZTROPINE (Unverified Allergy, Unknown, 02/22/14) HALOPERIDOL (Unverified Allergy, Unknown, 02/22/14) PENICILLINS (Unverified Allergy, Unknown, 04/14/18) tolerated Ceftriaxone 06/2017 Subjective 04/15: Pt awake and agitated. No acute events. Pt refusing meds. 04/16: wbc severely elevated, seen by Id, on broad spectrum antifungals, foul language, very aggressive 04/18: no events, mumbling, minimally conversive, no fevers, down on ivf 04/19: pt is awake and resting in bed. refusing care, aggressive, no events 04/20: Pt is awake and alert, refusing care, minimally conversive, on abx, wbc have improved. 04/21: Pt is awake and resting in bed, aggressive, mumbling, 04/22: Pt is resting in bed. PEG has been defered, the patient has shown improvement in caloric intake and shows no signs of dysphagia or risk for aspiration. 04/23: Pt is seen in the room, resting in bed, refusing care, on abx, pending labs 17/: No events, has been agitated overnight, refusing care 04/25: Pt is awake and resting in bed, refusing labs, agitated, screaming, refusing care 04/26: no major events, no fevers or chills, no chest pain or sob 04/27: pt is seen by bedside, awake and comfortable, wbc is at 22.9 today. 04/28: peg has been deferred, gi recs reviewed, no events, slightly agitated 04/29: no events, refusing care, no change other, remains aggressive, says "don' t touch me" 04/30: continues to cuss out, rn by bedside with conservator and able to chnage wound on eye R 05/01: Pt is awake and calm, alert oriented x1, remains afebrile off abx and leukocytosis resolved 05/02: Pt is seen by bedside, awake and calm, no events. pending labs 05/03: Pt is alert and oriented x1, remains afebrile off abx and leukocytosis resolved 05/04: accepted at [facility] as early as today 05/05: pt came back from [facility]. They were unable to accept the pt due to pt's agitation worsenin 05/09: Pt is awake, seen by bedside, pending placement, no events 05/10: no fevers noted, no chills, getting abx, but refuisng blood draws 05/11: seen by bedside, awake and comfortable, no overnight events, refusing blood draws 05/12: Pt is awake, confused, refusing labs, no events reported 05/13: seen by bedside, awake, comfortable, no events, refusing meds. placement pending 05/15: pt is awake, no fevers or chills, no events, placement pending. 05/16: Pt is seen by bedside, awake, comfortable, denies acute distress, wbc 15 05/17: Pt is comfortable and resting in bed, confused, wbc 15 05/18: Pt is awake , no fevers or chills, 05/19 Dc planning today, potential discharge as sup rn notified at other facility Objective Last 24 Hour Vital Signs Date Time Temp Pulse Resp B/P (MAP) Pulse Ox O2 Delivery O2 Flow Rate FiO2 05/19/18 15:17 98.0 71 20 118/64 (82) 96 05/19/18 12:00 97.8 65 18 115/70 (85) 96 05/19/18 09:00 Room Air 05/19/18 08:00 97.5 69 18 111/73 (86) 96 05/19/18 04:00 97.6 62 18 128/74 (92) 95 05/19/18 00:00 98.3 64 19 109/63 (78) 94 05/18/18 21:00 Room Air 05/18/18 20:00 98.3 67 20 99/60 (73) 97 Intake and Output 05/18/18 05/19/18 19:00 07:00 Intake Total 1040 ml 480 ml Output Total 900 ml Balance 140 ml 480 ml Intake Oral 1040 ml 480 ml Output Urine Total 900 ml # Voids 2 # Bowel Movements 1 Height (Feet): 5 Height (Inches): 10.00 Weight (Pounds): 162 General Appearance: lethargic EENT: TMs normal Neck: supple Cardiovascular: regular rhythm Respiratory/Chest: chest wall non-tender Extremities: non-tender Edema: 1+ Leg (L), 1+ Leg (R) Edema: mild edema Neurologic: oriented x 3 Objective Vitals: Have been reviewed General Appearance: alert, agitated Head: normocephalic, atraumatic Eyes: right eye abnormal pupil - right eye has patch which covers the right temporal area of face as well from cancer ressection; left eye other - visible cataract, glassy/hazy appearance, unchanged ENT: hearing grossly normal, other Neck: full range of motion Respiratory: chest non-tender, lungs clear Cardiovascular no edema, tachycardia Gastrointestinal: normal bs, non tender, soft MSK: back normal, non-tender, bilateral hand contractures Skin: normal color, no rash, warm/dry Jr Daly MD May 19, 2018 19:13
--- NOTE | 2018-05-19 19:24 | NUR ---
NURSE NOTES: RN GAVE REPORT TO Nell VILLARREAL LVN. MADE AWARE NURSE SUP FROM [facility] TO CALL BACK TO RECEIVE REPORT. BELONGINGS CHECKED AT BEDSIDE AND ALL BELONGINGS ACCOUNTED.
--- NOTE | 2018-05-19 19:25 | NUR ---
HAND-OFF: Report given to Nell VILLARREAL LVN.
--- NOTE | 2018-05-19 19:30 | NUR ---
NURSE NOTES: RECEIVED PATIENT LYING IN BED, AWAKE, ALERT/ORIENTED TO SELF, REALITY ORIENTATION PROVIDED DURING ASSESSMENT, DENIES PAIN. NO SIGNS AND SYMPTOMS OF ACUTE CARDIO RESPIRATORY DISTRESS/SHORTNESS OF BREATH. DRESSING DRY AND INTACT TO RIGHT SIDE OF FACE, DATED 05/19/18. NO REPORT OF GI DISCOMFORT, NO N/V/D. SIDE RAILS UP X3/BED IN LOWEST POSITION FOR SAFETY. CALL LIGHT WITHIN REACH. BED ALARM ON. DISCHARGE PENDING TO [facility]. ETA 2030, PATIENT AWARE.
--- NOTE | 2018-05-19 19:40 | NUR ---
NURSE NOTES: REPORT GIVEN TO ANISH TEMPLE, [facility], PATIENT GOING TO [place] ROOM 102 BED B.
[2018-05-19 20:00] VITALS: BP 124/72
--- NOTE | 2018-05-19 20:35 | NUR ---
NURSE NOTES: PATIENT DISCHARGED VIA AMBULANCE TO [facility] IN STABLE CONDITION, ACCOMPANIED BY 2 ATTENDANTS, BELONGINGS GIVEN TO TRANSPORTER. VITALS STABLE, AFEBRILE. NAD.
--- NOTE | 2018-05-21 15:16 | Discharge Summary ---
Discharge Summary Discharge Summary _ DATE OF ADMISSION: 04/13/2018 DATE OF DISCHARGE: 04/2018 DISCHARGED BY: Dr. Higgins REASON FOR ADMISSION: 57 years old male with past medical history of hypertension, COPD, basal cell carcinoma of the right yazidi , status post surgical rejection resection, legal blindness, schizophrenia, bipolar disorder, depression, anxiety, presented to emergency room for refusal to take his medication and eat for 3 days. Patient was poor historian and refused to provide any answers in the emergency department. Patient had poor cooperation and got easily agitated. Upon evaluation patient was tachycardic and tachypneic with heart rate 113 , respiratory rate of 24, blood pressure was elevated 155/84. Laboratory workup revealed WBC 16.6, hemoglobin 13.1 hematocrit 39. Chemistry showed sodium 146, BUN 24, creatinine 1.4 ,stable LFT. Troponin negative. EKG revealed normal sinus rhythm, no acute ischemic changes. Urinalysis revealed evidence of leukocyte esterase , +2 protein , no pyuria. Patient was admitted for further management CONSULTANTS: central office associate Dr. Burk pulmonary Dr. Thornton ID specialist Dr. Gallardo GI specialist Dr. Ferguson telegraphic instrument supervisor Dr. Roper eeg technologist/oncologist Dr. Medina psychiatrist , Dr. Blackmon HOSPITAL COURSE: Patient admitted and started on IV fluids. Cardiology, pulmonology, ID specialist, GI, nephrology consult were requested along with psychiatric consult. Chrome Tanner closely followed. Supplemental oxygen provided to keep oximetry above 92%. Pulmonary toilet was on standby as needed. CT of the chest was unremarkable. Patient was follow-up with chest x-ray , which revealed no acute findings. Pulse oximetry was stable on room air . Respiratory status remained stable. CT of the abdomen and pelvis revealed findings suggesting cystitis with or without proctitis. Probably benign 0.8 cm right renal hypodensity , likely representing a benign cyst in the absence of known metastatic disease. Minimal anterior wedge deformity of L1 without surrounding fat stranding to suggest acute injury, likely chronic. Infectious disease specialist followed due to persistent leukocytosis . Patient remained afebrile . Blood cultures were negative. Wound culture from right eye revealed MRSA and [place] . Patient status post treatment with e antibiotic for pneumonia , possible UTI, possible R eye infection. Patient completed antibiotic course in the hospital. Infectious disease specialist recommended close monitoring. ID specialist recommended ophthalmology/surgery consult if patient wants aggressive treatment. If leukocytosis continues to increase, consider MRI of the eyes. Lead Ramp Agent followed. Patient showed evidence of sinus tachycardia , which was likely due to anxiety and infection . Heart rate stabilized. Patient with evidence of hypertension , but refused blood pressure medication . Prior to discharge blood pressure 124/72. GI specialist closely follow. Patient showed improvement in caloric intak. Patient showed no signs of dysphasia risk of aspiration. Oral fluids were encouraged. One-to-one supervision with food intake was recommended. Bowel regimen instituted. Patient started on PPI. Prototype Machine Operator recommendation implemented in plan of care. Director Report closely followed. Renal parameters and electrolytes were closely monitored. Electrolytes corrected as needed. Nephrotoxins were avoided. Prior to discharge creatinine from 1.4 down to 0.9 and BUN from 28 down to 20. Woods Overseer followed. Hemoglobin and hematocrit were closely monitored with goal to keep hemoglobin above 7. Patient has a history of carcinoma resection from the right side of the face/ eye. Oncologist recommended follow-up with outpatient oncologist . Patient also had significant leukocytosis, likely due to underlying infection along with history of malignancy. Peripheral blood smear was reviewed and showed no evidence of blasts. Psychiatrist closely followed and diagnosed patient with schizophrenia. Psychiatric medication regimen was optimized. Second psychiatrist evaluated patient and further optimized psychiatric medication regimen. Behavioral management was addressed to reduce agitation and encourage compliance. Patient had difficult and challenging placement. Finally placement was arranged at [facility] as care home care. Patient was stable for discharge FINAL DIAGNOSES: Sepsis Pneumonia Possible UTI Persistent leukocytosis Right facial basal cell carcinoma status post surgical resection History of superinfected necrotic mass and possible microabscess status post treatment 06/2017 COPD Dysphagia Sinus tachycardia due to anxiety and infection -improved Hypertension Noncompliance Severe protein calorie malnutrition Constipation Dehydration Acute kidney injury secondary to dehydration -resolved Anemia of chronic disease Paranoid schizophrenia with acute exacerbation Legal blindness DISCHARGE MEDICATIONS: See Medication Reconciliation list. DISCHARGE INSTRUCTIONS: [facility]. Follow up with medical doctor at the facility. I have been assigned to dictate discharge summary for this account. I was not involved in the patient's management. Julianna Day NP May 21, 2018 15:16
== END 2018-05-19 20:45 | DRG 720 ==
LOC: EDBD 17:11 → EDBEDREQ 18:19 → EMR 18:32 → 4E 18:44 → EDBEDREQ 18:52 → UNDODISIN 05-05 12:00
DX: A41.9 Sepsis, unspecified organism (principal); E43 Unspecified severe protein-calorie malnutrition; J18.9 Pneumonia, unspecified organism; L03.211 Cellulitis of face; J44.0 Chronic obstructive pulmonary disease with (acute) lower respiratory infection; R13.10 Dysphagia, unspecified; C44.319 Basal cell carcinoma of skin of other parts of face; N17.9 Acute kidney failure, unspecified; F20.9 Schizophrenia, unspecified; R62.7 Adult failure to thrive; Z68.23 Body mass index [BMI] 23.0-23.9, adult; I10 Essential (primary) hypertension; F32.9 Major depressive disorder, single episode, unspecified; F41.9 Anxiety disorder, unspecified; N39.0 Urinary tract infection, site not specified; K59.00 Constipation, unspecified; E86.0 Dehydration; D64.9 Anemia, unspecified; H54.8 Legal blindness, as defined in USA; R00.0 Tachycardia, unspecified
CPT/HCPCS: 36415; 71045; 71250; 74177; 80048; 80053; 80076; 80202; 81001; 82550; 82607; 82746; 82977; 83735; 83880; 84100; 84443; 84484; 84550; 85007; 85025; 86140; 87040; 87070; 87081; 87181; 87205; 96372; 99285; C9399; J8499